=== PATIENT | female | born 1970 | race Caucasian/White ===

== ENCOUNTER 2017-06-15 07:29 | Inpatient (IN) | payer OTHER ==
[~2017-06-15] VITALS: Ht 157.5 cm; Wt 117.6 kg
[~2017-06-15 07:29] MED LIST: AMLODIPINE BESYL5 M1 PO; CLONAZEPAM1 M2 PO; DULOXETINE HCL60 MG PO; HYDROMORPHO IV; LACTATED RING1000 ML IV; METOPROLOL SUC100 M2 PO; MIRALAX119 GM PO; MONTELUKAST SOD10 M1 PO; PERCOCET 5-3251 EACH PO; SENNA-TIME S T1 EACH PO; SPIRONOLACTONE100 M1 PO; TRAZODONE HCL50 M1 PO; VITAMIN D250000 UNIT PO
[2017-06-15] MEDS ORDERED: ZOFRAN ODT4 M1 SL (09:01)
--- NOTE | 2017-06-15 09:01 | ED GI/GU/ABDOMINAL COMPLAINT ---
History of Present Illness General Chief Complaint: Abdominal Pain/Flank Pain Stated Complaint: ABD PAIN/ VOMITING Source: patient, old records Exam Limitations: no limitations Vital Signs & Intake/Output Vital Signs & Intake/Output Vital Signs Date Time Temp Pulse Resp B/P B/P Pulse O2 O2 Flow FiO2 Mean Ox Delivery Rate 06/16 1600 94 Room Air Room Air 06/16 1600 97.7 104 22 130/80 92 Room Air Room Air 06/16 1200 98 Room Air Room Air 06/16 1041 92 121/67 06/16 1041 92 121/67 06/16 0800 98 Room Air Room Air 06/16 0800 98.8 92 20 124/70 98 Room Air Room Air 06/16 0400 98 Room Air 06/16 0000 96 Room Air 06/16 0000 98.6 110 22 148/90 96 Room Air ED Intake and Output 06/16 0000 06/15 1200 Intake Total 405 2000 Output Total 0 Balance 405 2000 Intake, IV 375 2000 Intake, Oral 30 Output, Urine 0 Patient 265 lb 170 lb Weight Weight Estimated Measurement Method Allergies Coded Allergies: Sulfa (Sulfonamide Antibiotics) (Intermediate, RASH 05/21/17) valsartan (From DIOVAN) (RASH 05/21/17) Reconcile Medications Amlodipine Besylate 5 MG TABLET 2 TAB PO DAILY BP (Reported) Clonazepam 1 MG TABLET 1 TAB PO BIDP PRN ANXIETY (Reported) Duloxetine HCl 60 MG CAPSULE.DR 2 CAP PO DAILY MENTAL HEALTH/NERVE PAIN ( Reported) Ergocalciferol (Vitamin D2) (Vitamin D2) 50,000 UNIT CAPSULE 1 CAP PO QWED SUPPLEMENT (Reported) Hydromorphone (Hydromorphone HCl) 2 MG/ML VIAL 2 MG IV Q4 PRN SEVER PAIN Metoprolol Succinate 100 MG TAB.ER.24H 1 TAB PO DAILY HEART/BP (Reported) Montelukast Sodium 10 MG TABLET 1 TAB PO DAILY ALLERGIES (Reported) Ondansetron (Zofran Odt) 4 MG TAB.RAPDIS 1 TAB SL TID PRN NAUSEA/VOMITING ( Reported) Polyethylene Glycol 3350 (Miralax) 17 GRAM/DOSE POWDER 17 GM PO DAILY PRN CONSTIPATION . Sennosides/Docusate Sodium (Senna-Time S Tablet) 8.6 MG-50 MG TABLET 187 MG PO AT BEDTIME PRN constipation . Trazodone HCl 50 MG TABLET 1 TAB PO QPM SLEEP (Reported) Triage Note: PT TO ED C/O ABD PAIN AND VOMITING SINCE YESTERDAY. PT WAS ADMITTED TO [facility] ON 06/09 FOR PANCREATITIS. PT IS ALSO S/P [facility] ON 05/21. PT WAS SENT TO [facility] ON 06/10 FROM [facility] FOR A "DIAGNOSTIC TEST" WHICH PT STATES WAS NEVER DONE. PT WAS DISCHARGED FROM [facility] ON 06/12. STARTED YESTERDAY WITH N/V AND ABD PAIN. Triage Nurses Notes Reviewed? yes ? n Is pt currently ? No Onset: Abrupt Duration: day(s): (3), constant Timing: recent history Quality/Severity: aching, cramping, vomiting Severity Numbers: 7 Location: epigastric, left upper quadrant, right lower quadrant Radiation: no radiation Activities at Onset: none Prior Abdominal Problems: similar symptoms No Modifying Factors: none Associated Symptoms: denies HPI: 47-year-old woman with a history of obesity, of hypertension, anxiety, allergy, history of DVT on the left LE, hyperlipidemia, with plans for bariatric surgery in the near future, DVT hospitalized 3 weeks prior to this admission with acute pancreatitis in the setting of cholelithiasis, status post cholecystectomy on that hospitalization, for which she was admitted last week and discharged from the [facility] days ago secondary to acute pancreatitis with an acute necrotic collection that they did not drain at [facility]. The patient states that when she went home she began feeling nauseous, and starting yesterday she's had vomiting and loose stools. She states she'll has abdominal pain with vomiting. No fever no chills. She is not currently on any antibiotics. She's been taking prescribed nausea medicine without improvement in her symptoms no sick contacts no chest pain back pain and urinary urgency frequency dysuria. No vaginal bleeding. (Luisito Isidro) Past History Travel History Traveled to [place] past 21 day No Medical History Any Pertinent Medical History? see below for history Neurological: NONE EENT: NONE Cardiovascular: hypertension, hyperlipidemia Respiratory: NONE Gastrointestinal: pancreatitis Hepatic: ? 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 Age 67. MOTHER, , Age 34; Cause: MVA (motor vehicle accident). PGA, , Age 85; Cause: Colon cancer. Relation not specified for: *No pertinent family history Hx Contributory? No (Luisito Isidro) Review of Systems Review of Systems Constitutional: Reports: see HPI. Comments Review of systems: See HPI, All other systems negative. Constitutional, no chills no fever HEENT: no sore throat no congestion Cardiovascular: No chest pain Skin: no rashes, no change in skin Respiratory: No dyspnea no cough no sputum GI: SEE HPI : No dysuria Muscle skeletal: No joint pain, no back pain Neurologic: , no headache Psych: No stress Heme/endocrine: No bruising (Luisito Isidro) Physical Exam Physical Exam General Appearance: well developed/nourished, alert, awake Gastrointestinal: soft, tenderness ( DIFFUSE) Comments: Well-developed well-nourished person in no acute distress HEENT: Normal EENT exam; PERRL, EOMI, HEAD is atraumatic. moist mucous membranes. Neck: Supple, no lymphadenopathy, normal range of motion Back: Nontender, no CVA tenderness. Full range of motion Cardiovascular: Regular rate and rhythms no murmurs Respiratory: No respiratory distress. Patient speaking in full complete sentences. Breath sounds clear to auscultation bilaterally: NO W/R/R Abdomen: Soft, diffuse tenderness, the incisions are clean dry and intact nondistended, no appreciable organomegaly. Normal bowel sounds. No rebound/ guarding, No ascites. Extremity: No edema, full range of motion of extremities Neuro: Alert oriented x3, motor sensory normal, There were no obvious focal neurologic abnormalities. Skin: No appreciable rash on exposed skin, skin is warm and dry. Psych: Mood and affect is normal, memory and judgment is normal. Core Measures ACS in differential dx? No Sepsis Present: No Sepsis Focused Exam Completed? No (Luisito Isidro) Progress Differential Diagnosis: bowel obstruction, colon cancer, diverticulitis, gastritis, hepatitis, hernia, ischemic bowel, inflamm bowel dis, pancreatitis, PUD/GERD, perforated viscous, SBO Plan of Care: Orders Procedure Date/time Status ICU LAB BUNDLE 06/17 0500 Active CBC WITHOUT DIFFERENTIAL 06/17 0500 Active Wound Care/Dressing 06/16 1615 Complete Weight 06/16 1615 Active Turn and Reposition 06/16 1615 Active Drains/Tubes 06/16 1615 Complete Skin Integrity Protocol 06/16 1615 Active Skin/Pressure Ulcer Assess (Sk 06/16 1615 Active Precautions 06/16 1615 Active CIWA 06/16 1615 Complete PHOSPHORUS 06/16 0440 Complete MAGNESIUM 06/16 0440 Complete Lab Add-on Test 06/16 UNK Active ICU LAB BUNDLE 06/16 UNK Active ECHOCARDIOGRAM 06/16 UNK Active Transfer Disposition 06/15 2202 Active ACTIVE SURVEILLANCE NARES 06/15 2157 Active Transfer patient to 06/15 UNK Active Current Medications Sig/Anay Start time Last Medication Dose Stop Time Status Admin Trimethobenzamide HCl 200 MG Q6P PRN 06/16 2345 AC 06/16 (Tigan) 0834 Enoxaparin Sodium 40 MG DAILY 06/16 1055 AC 06/16 (Lovenox) 1057 Duloxetine HCl 120 MG DAILY 06/16 1000 AC 06/16 (Cymbalta) 1040 Magnesium Oxide 400 MG BID 06/16 1000 CAN (Mag-Ox) 06/18 1000 Lactated Ringer's 1,000 ML Q8H 06/15 2300 AC 06/16 (Lactated Ringers) 1850 Trazodone HCl 50 MG QPM 06/15 2200 AC 06/15 (Desyrel) 2242 Pantoprazole Sodium 40 MG DAILY 06/15 1857 AC 06/16 (Protonix) 1038 Clonazepam 1 MG BID PRN 06/15 1630 AC 06/15 (Klonopin 1MG Tab) 06/22 1629 2048 Metoprolol Succinate 100 MG DAILY 06/15 1622 AC 06/16 (Toprol Xl) 1041 Amlodipine Besylate 10 MG DAILY 06/15 1620 AC 06/16 (Norvasc) 1041 Ondansetron HCl 4 MG Q6P PRN 06/15 1415 AC 06/15 (Zofran) 2042 Acetaminophen 650 MG Q6P PRN 06/15 1345 AC (Tylenol) Hydromorphone HCl 1 MG Q6P PRN 06/15 1345 AC 06/16 (Dilaudid) 1850 Morphine Sulfate 2 MG Q6-PRN PRN 06/15 1345 AC (Morphine) Laboratory Tests 06/16/17 0440: Anion Gap 11, Estimated GFR > 60, BUN/Creatinine Ratio 8.0, Phosphorus 3.8, Magnesium 1.5 L, Amylase 738 H, Lipase 3650 H, CBC w Diff NO MAN DIFF REQ, RBC 3.49 L, MCV 91.9, MCH 30.5, RDW 13.9, MPV 7.8, Gran % 76.0 H, Lymphocytes % 13.8 L, Monocytes % 7.4, Eosinophils % 2.5, Basophils % 0.3, Absolute Granulocytes 6.4, Absolute Lymphocytes 1.2, Absolute Monocytes 0.6, Absolute Eosinophils 0.2, Absolute Basophils 0, PUBS MCHC 33.2 Microbiology 06/15 2207 UPPER RESP: Surveillance Culture - RECD Old records reviewed including the patient's previous hospitalization, medications Zofran 4 IV IV fluids Dilaudid 1 mg IV CAT scan ordered. CASE D/W DR HOROWITZ AGREES WITH PLAN 1015 pt reports to feeling sig improved, pain resolved, nausea improved, iv fluids running pending labs 1135 repeat evaluation patient's resting in no apparent distress reports improvement in symptoms pending CAT scan and discussed with relief of her labs to date. I discussed with the patient her CAT scan findings, resting comfortably IV fluids are running. DR HOROWITZ spoke with dr stoner who will admit Diagnostic Imaging: Viewed by Me: CT Scan. Discussed w/RAD: CT Scan. Radiology Impression: PATIENT: CR VASQUEZ PRESENT AGE: 47 PATIENT ACCOUNT NO: [id number] : 72 LOCATION: [facility] ORDERING PHYSICIAN: Luisito MITCHELL SERVICE DATE: 06/15/17 EXAM TYPE: CAT - CT ABD & PELVIS W IV CONTRAST EXAMINATION: CT ABDOMEN AND PELVIS WITH CONTRAST CLINICAL INFORMATION: Nausea and vomiting. Upper abdominal pain. Recent necrotic pancreatitis. COMPARISON: CT from 06/09/2017. MRI 06/10/2017. TECHNIQUE : Multidetector volumetric imaging was performed of the abdomen and pelvis following IV administration of 95 mL of Optiray 320 intravenous contrast. Sagittal and coronal reformatted images were obtained on the technologist's workstation. DLP: 1370 mGy-cm FINDINGS: LUNG BASES: Trace bilateral pleural effusions. Bibasilar subsegmental atelectasis. LIVER, GALLBLADDER, AND BILIARY TREE: The liver is normal in size, shape, and attenuation. No focal hepatic lesion or biliary ductal dilatation is present. Cholecystectomy. PANCREAS: Redemonstration of necrosis involving the pancreatic head and neck with associated wall of collection replacing the parenchyma. The appearance is fairly similar to the previous CT. The pancreatic body and tail parenchyma remains homogenous with mild prominence of the pancreatic duct, similar to prior. Adjacent inflammatory changes are noted, which may be mildly decreased from prior. Fluid continues to extend along the paracolic gutters into the pelvis. There is no new fluid collection. SPLEEN: Unremarkable. ADRENAL GLANDS: Unremarkable. KIDNEYS AND URETERS: The kidneys are normal in size, shape, and attenuation. No hydronephrosis, hydroureter, or calculi seen. No perinephric stranding. Left upper pole renal cyst again noted. BLADDER: Unremarkable. GASTROINTESTINAL TRACT: Tiny hiatal hernia. The stomach is otherwise unremarkable. Mild wall thickening of the proximal duodenum is likely reactive to the pancreatic process. The small bowel is normal in caliber without obstruction. No colonic wall thickening or inflammatory change. No free air. ABDOMINAL WALL: No significant hernia is appreciated. LYMPH NODES: Normal. VASCULAR: Unremarkable. PELVIC VISCERA: Tampon in place. The uterus and adnexa are unremarkable. OSSEOUS STRUCTURES: No acute or suspicious osseous abnormality. Mild degenerative changes at L5-S1 with vacuum disc phenomenon present. IMPRESSION: Similar appearance of the pancreas to the previous study, with area of walled off necrosis involving the pancreatic head and neck. Decreasing but persistent adjacent inflammatory changes. Mild prominence of the pancreatic duct is also unchanged. No new fluid collection. Trace bilateral pleural effusions with atelectasis, increased from prior. DICTATED BY: Amador Blanton MD DATE/TIME DICTATED:06/15/171253 CARRY ALL DRIVER: KIMBERLY DATE/TIME TRANSCRIBED:06/15/171253 CONFIDENTIAL, DO NOT COPY WITHOUT APPROPRIATE AUTHORIZATION. <Electronically signed in Other Vendor System> SIGNED BY: Amador Blanton MD 06/15/17 1303 Initial ED EKG: none (Luisito Isidro) Departure Departure Time of Disposition: 1323 Disposition: STILL A PATIENT Condition: Stable Clinical Impression Primary Impression: Pancreatitis Referrals: Bienvenido Casarez MD (PCP/Family) Departure Forms: Customer Survey General Discharge Information Admission Note Spoke With: Christo Stoner MD Documentation of Exam: Documentation of any treatments & extenuating circumstances including Concerns Regarding Discharge (functional status, medication knowledge or non-compliance, living conditions, etc.) that warrant an admission rather than observation: IV pain control IV fluids trend labs GI consult, PREMATURE DISCHARGE woudl be medically harmful, pt unable to tolerate po, Pt had long hospital course x 2 last month including transfer to [facility], will need bowel rest, iv fluids for several days (Luisito Isidro) PA/SHOTBLASTER Co-Sign Statement Statement: ED Attending supervision documentation- x I saw and evaluated the patient. I have also reviewed all the pertinent lab results and diagnostic results. I agree with the findings and the plan of care as documented in the PA's/SHOTBLASTER's documentation. Continued n/v/abdominal pain elevated lipase. Requires NPO, IVF, IV antiemetic, IV analgesia, GI evaluation [] I have reviewed the ED Record and agree with the PA's/SHOTBLASTER's documentation. [] Additions or exceptions (if any) to the PAs/SHOTBLASTER's note and plan are summarized below: [] (Kandy BRUNNER,Glen)
[2017-06-15 09:39] LABS: ABSOLUTE BASOPHIL COUNT 0 /CUMM (0.0-0.2); ABSOLUTE EOSINOPHIL COUNT 0.1 /CUMM (0.0-0.7); ABSOLUTE GRANULOCYTE CT 8.1 /CUMM (1.4-6.5); ABSOLUTE LYMPH COUNT 1.1 /CUMM (1.2-3.4); ABSOLUTE MONOCYTE COUNT 0.4 /CUMM (0.10-0.60); BASOPHIL % 0 % (0.0-2.0); EOSINOPHIL % 1.2 % (0-5); GRANULOCYTE % 82.7 % (42.2-75.2); HEMATOCRIT 37.2 % (37-47); MEAN CORPUSCULAR HGB 30.3 PG (27.0-31.0); MEAN CORPUSCULAR VOLUME 91.9 FL (81.0-99.0); MEAN PLATELET VOLUME 8.1 FL (7.4-10.4); PLATELET COUNT 358 /CUMM (130-400); RBC DISTRIBUTION WIDTH 13.6 % (11.5-14.5); RED BLOOD CELL CT 4.05 /CUMM (4.20-5.40); WHITE BLOOD CELL COUNT 9.8 /CUMM (4.8-10.8)
--- NOTE | 2017-06-15 13:03 | CT SCAN REPORT ---
EXAMINATION: CT ABDOMEN AND PELVIS WITH CONTRAST CLINICAL INFORMATION: Nausea and vomiting. Upper abdominal pain. Recent necrotic pancreatitis. COMPARISON: CT from 06/09/2017. MRI 06/10/2017. TECHNIQUE: Multidetector volumetric imaging was performed of the abdomen and pelvis following IV administration of 95 mL of Optiray 320 intravenous contrast. Sagittal and coronal reformatted images were obtained on the technologist's workstation. DLP: 1370 mGy-cm FINDINGS: LUNG BASES: Trace bilateral pleural effusions. Bibasilar subsegmental atelectasis. LIVER, GALLBLADDER, AND BILIARY TREE: The liver is normal in size, shape, and attenuation. No focal hepatic lesion or biliary ductal dilatation is present. Cholecystectomy. PANCREAS: Redemonstration of necrosis involving the pancreatic head and neck with associated wall of collection replacing the parenchyma. The appearance is fairly similar to the previous CT. The pancreatic body and tail parenchyma remains homogenous with mild prominence of the pancreatic duct, similar to prior. Adjacent inflammatory changes are noted, which may be mildly decreased from prior. Fluid continues to extend along the paracolic gutters into the pelvis. There is no new fluid collection. SPLEEN: Unremarkable. ADRENAL GLANDS: Unremarkable. KIDNEYS AND URETERS: The kidneys are normal in size, shape, and attenuation. No hydronephrosis, hydroureter, or calculi seen. No perinephric stranding. Left upper pole renal cyst again noted. BLADDER: Unremarkable. GASTROINTESTINAL TRACT: Tiny hiatal hernia. The stomach is otherwise unremarkable. Mild wall thickening of the proximal duodenum is likely reactive to the pancreatic process. The small bowel is normal in caliber without obstruction. No colonic wall thickening or inflammatory change. No free air. ABDOMINAL WALL: No significant hernia is appreciated. LYMPH NODES: Normal. VASCULAR: Unremarkable. PELVIC VISCERA: Tampon in place. The uterus and adnexa are unremarkable. OSSEOUS STRUCTURES: No acute or suspicious osseous abnormality. Mild degenerative changes at L5-S1 with vacuum disc phenomenon present. IMPRESSION: Similar appearance of the pancreas to the previous study, with area of walled off necrosis involving the pancreatic head and neck. Decreasing but persistent adjacent inflammatory changes. Mild prominence of the pancreatic duct is also unchanged. No new fluid collection. Trace bilateral pleural effusions with atelectasis, increased from prior.
--- NOTE | 2017-06-15 13:44 | History & Physical ---
Jacob BRUNNER,[facility] 06/15/17 1343: General Information and HPI MD Statement: I have seen and personally examined CR KWOK and documented this H&P. The patient is a 47 year old F who presented with a patient stated chief complaint of [abd pain]. Source of Information: patient History of Present Illness: 47 yo F with a history of necrotic pancreatitis, obesity, hypertension, anxiety, DVT on the left LE, hyperlipidemia, recently hospitalized 3 weeks prior to this admission with acute pancreatitis in the setting of cholelithiasis, status post cholecystectomy during the admission. More recently she was admitted last week for acute pancreatitis adn transferred to [facility] for an acute necrotic collection which was not drain. States she was doing ok at home however she started having worsening naseau x3 days and abd pain. She was started on a low-fat regular diet and states she was compliant on the diet. However she threw up multiple times last night and comes to the ED due to inability to tolerate any po. Allergies/Medications Allergies: Coded Allergies: Sulfa (Sulfonamide Antibiotics) (Intermediate, RASH 05/21/17) valsartan (From DIOVAN) (RASH 05/21/17) Home Med list Amlodipine Besylate 5 MG TABLET 2 TAB PO DAILY BP (Reported) Clonazepam 1 MG TABLET 1 TAB PO BIDP PRN ANXIETY (Reported) Duloxetine HCl 60 MG CAPSULE.DR 2 CAP PO DAILY MENTAL HEALTH/NERVE PAIN ( Reported) Ergocalciferol (Vitamin D2) (Vitamin D2) 50,000 UNIT CAPSULE 1 CAP PO QWED SUPPLEMENT (Reported) Hydromorphone (Hydromorphone HCl) 2 MG/ML VIAL 2 MG IV Q4 PRN SEVER PAIN Metoprolol Succinate 100 MG TAB.ER.24H 1 TAB PO DAILY HEART/BP (Reported) Montelukast Sodium 10 MG TABLET 1 TAB PO DAILY ALLERGIES (Reported) Ondansetron (Zofran Odt) 4 MG TAB.RAPDIS 1 TAB SL TID PRN NAUSEA/VOMITING ( Reported) Polyethylene Glycol 3350 (Miralax) 17 GRAM/DOSE POWDER 17 GM PO DAILY PRN CONSTIPATION . Sennosides/Docusate Sodium (Senna-Time S Tablet) 8.6 MG-50 MG TABLET 187 MG PO AT BEDTIME PRN constipation . Trazodone HCl 50 MG TABLET 1 TAB PO QPM SLEEP (Reported) Past History Travel History Traveled to [place] past 21 day No Medical History Neurological: NONE EENT: NONE Cardiovascular: hypertension, hyperlipidemia Respiratory: NONE Gastrointestinal: pancreatitis Hepatic: ? mild fatty liver Renal: NONE Musculoskeletal: NONE Psychiatric: anxiety, depression, panic attacks Endocrine: obesity Blood Disorders: DVT (LLE 1993, post AP) Cancer(s): NONE RN ACUTE CARE/Reproductive: NONE History of MRSA: No History of VRE: No History of CDIFF: No Influenza Vaccine: 03/14/17 Surgical History Surgical History: appendectomy (1993), cholecystectomy (05/26/17: Lap CCKY), LASIC EYE SURGERY Past Family/Social History Family History Relations & Conditions if any FATHER (A&W). Age 67. MOTHER, , Age 34; Cause: MVA (motor vehicle accident). PGA, , Age 85; Cause: Colon cancer. Relation not specified for: *No pertinent family history Psychosocial History Who Do You Live With? spouse Services at Home: None Primary Language: Eritrean ETOH Use: denies use Illicit Drug Use: denies illicit drug use Living Will? 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 Ambulation: independent IADLs Independent: shopping, housework, finances, food prep, telephone, transportation , medication admin. Review of Systems Review of Systems Constitutional: Reports: see HPI. Denies: chills, fever, malaise. Cardiovascular: Denies: chest pain, palpitations. Respiratory: Denies: cough, short of breath. GI: Reports: abdominal pain, nausea, vomiting. Genitourinary: Reports: no symptoms. Exam & Diagnostic Data Last 24 Hrs of Vital Signs/I&O Vital Signs Date Time Temp Pulse Resp B/P B/P Pulse O2 O2 Flow FiO2 Mean Ox Delivery Rate 06/15 1843 115 152/88 06/15 1842 115 152/88 06/15 1754 115 152/88 06/15 1616 98.5 125 22 160/98 98 Room Air 06/15 1410 98.8 110 20 137/91 100 Room Air 06/15 1228 98.9 102 20 137/79 99 Room Air 06/15 1033 98.8 98 20 128/71 98 Room Air 06/15 0853 97 06/15 0732 99.0 124 20 134/88 97 Room Air Intake & Output 06/16 0800 06/16 0000 06/15 1600 Intake Total 405 2000 Output Total 0 Balance 405 2000 Intake, IV 375 2000 Intake, Oral 30 Output, Urine 0 Patient 265 lb Weight Physical Exam General Appearance Alert, Oriented X3, Mild Distress Skin Temp/Moisture Exam: Warm/Dry Cardiovascular Normal S1, Normal S2, tachy Lungs Clear to Auscultation, Normal Air Movement Abdomen Normal Bowel Sounds, Soft, tender to palpation of upper quadrants Extremities 2+ radial pulses Last 24 Hrs of Labs/Dangelo: Laboratory Tests 06/15/17 1208: Lactic Acid Cancelled 06/15/17 1015: Anion Gap 8, Estimated GFR > 60, BUN/Creatinine Ratio 10.0, Glucose 96, Lactic Acid 0.8, Calcium 9.1, Total Bilirubin 0.6, AST 25, ALT 33, Alkaline Phosphatase 86, Total Protein 5.7 L, Albumin 3.1 L, Globulin 2.6, Albumin/Globulin Ratio 1.2, Amylase 778 H, Lipase 4759 H, Total Beta HCG NEGATIVE 06/15/17 0929: CBC w Diff NO MAN DIFF REQ, RBC 4.05 L, MCV 91.9, MCH 30.3, RDW 13.6, MPV 8.1, Gran % 82.7 H, Lymphocytes % 11.7 L, Monocytes % 4.4, Eosinophils % 1.2, Basophils % 0, Absolute Granulocytes 8.1 H, Absolute Lymphocytes 1.1 L, Absolute Monocytes 0.4, Absolute Eosinophils 0.1, Absolute Basophils 0, PUBS MCHC 33.0 06/15/17 0834: Sodium Cancelled, Potassium Cancelled, Chloride Cancelled, Carbon Dioxide Cancelled, Anion Gap Cancelled, BUN Cancelled, Creatinine Cancelled, BUN/ Creatinine Ratio Cancelled, Glucose Cancelled, Calcium Cancelled, Total Bilirubin Cancelled, AST Cancelled, ALT Cancelled, Alkaline Phosphatase Cancelled, Total Protein Cancelled, Albumin Cancelled, Globulin Cancelled, Albumin/Globulin Ratio Cancelled, Amylase Cancelled, Lipase Cancelled, Total Beta HCG Cancelled Microbiology 06/15 2206 UPPER RESP: Surveillance Culture - RECD 06/15 907 BLOOD: Blood Culture - ORD 06/15 907 BLOOD: Blood Culture - COLB Assessment/Plan Assessment: 47 yo F with a history of necrotic pancreatitis, obesity, hypertension, anxiety, DVT on the left LE, hyperlipidemia, recently hospitalized 3 weeks prior to this admission with acute pancreatitis in the setting of cholelithiasis, status post cholecystectomy during the admission and recently discharged from [facility] last week from necrotic pancreatitis presenting for pancreatitis. #pancreatitis Lipase 4759. amylase 778. CT abd: area of walled off necrosis involving the pancreatic head and neck. Decreasing but persistent adjacent inflammatory changes.Trace bilateral pleural effusions with atelectasis, increased from prior. -NPO with lactated Ringer @125ml/hr -f/u lipase, CBC, BEP tomorrow -pain control -tigan/zofran prn nausea, protonix prophylaxis -GI consult with Dr. Schaeffer -ID recs -f/u EKG -discuss with IR regarding aspiration of necrosis, monitor off abx #htn -cont amlodpiine, metoprolo #mental health -cont Cymbalta, Klonopin, trazodone for sleep #DVT prophylaxis ALPS, if no IR intervention will start SC Lovenox #Full code As Ranked By This Provider Problem List: 1. Acute pancreatitis Core Measures/Misc (02/28) Acute Coronary Syndrome ACS Diagnosis: No Congestive Heart Failure Congestive Heart Failure Diagnosis No Cerebrovascular Accident CVA/TIA Diagnosis: No VTE (View Protocol) VTE Risk Factors Acute Medical Illness No Mechanical VTE Prophylaxis d/t N/A MechProphylax Ordered No VTE Pharm Prophylaxis d/t Surgical Contraindication Sepsis (View protocol) Sepsis Present: No Bert Monge 06/15/17 1451: Attending MD Review Statement Attending Statement Attending MD Statement: examined this patient, discuss w/resident/PA/MANUFACTURING RECRUITER, agreed w/resident/PA/MANUFACTURING RECRUITER, discussed with family, reviewed EMR data (avail), discussed with nursing, discussed with case mgmt, reviewed images, amended to note Attending Assessment/Plan: 47 o/f with acute pancreatitis recently trasnferred to [place] for possible aspiration of pancreatic wall on CT but managed conservatively and discharged to home, however patient symptoms did not improve with persistent nasuea so she decided to come to ER. LABS wbc 9.0, Lipase 4000s. amylase 700s. CT abd/pelvis with minimal imrpovement. Plan is to admit for pancreatitis and pain control. Her AST/ALTs appear to be normal. GI and ID consult for pancreatoc necrosis. NPo, pain control, prn nausea meds. avoid medications which can cause pancreatitis. gi/dvt prophyalxis full code. Laltio Stroud 06/15/17 1558: Resident Review Statement Resident Statement: examined this patient, discussed with investigator internal revenue, agreed with investigator internal revenue, discussed with nursing, reviewed images Other Findings: Mrs. Kwok is a 47-year-old woman with a history of obesity, of hypertension, anxiety, allergy, history of DVT on the left LE, hyperlipidemia, with plans for bariatric surgery in the near future, DVT hospitalized 3 weeks prior to this admission with acute pancreatitis in the setting of cholelithiasis, status post cholecystectomy, the patient was admitted last week with similar complaint of generalized abdominal pain, nausea and vomiting, CAT scan of the abdomen showed new region of necrosis is present within the pancreatic head and neck, we transferred the patient to [facility] for possible drainage, patient reports that at [facility] she was kept nothing by mouth and then she was started on a low-fat regular diet and discharged home on the third day and no drainage was done at [place], she reports that the first day after discharge she was fine, but nausea started on Wednesday , Wednesday, yesterday she threw up multiple times overnight, and she reports severright upper quadrant pain which is slightly improved with IV medication. Vitals , examination, labs and imaging as above Assessment: #Pancreatitis with necrosis on CT-scan #Persistant N/V #Tachycardia Plan: -We'll admit the patient to general medicine floor -We'll keep her nothing by mouth for now -We'll hydrate her with lactated Ringer @125ml/hr -We will check her lipase, CBC, BEP tomorrow -We'll control pain with diluded -Zofran for nausea -GI consult with Dr. Schaeffer -ID consult -Baseline EKG is ordered -We'll continue her home medication of amlodipine, metoprolol, Cymbalta, Klonopin DVT prophylaxis ALPS, if no IR intervention will start SC Lovenox Full code
[2017-06-15 16:16] VITALS: BP 160/98
[2017-06-15 17:54] VITALS: BP 152/88
--- NOTE | 2017-06-15 17:57 | Cons- Infect Disease ---
General Information and HPI Consulting Request Date of Consult: 06/15/17 Requested By: Bert Monge MD Reason for Consult: Necrotizing pancreatitis Source of Information: patient, old records History of Present Illness: This is a 47-year-old woman with a history of obesity, with plans for a gastric sleeve in the near future, hypertension, anxiety and DVT of the left lower extremity, hospitalized 4 weeks prior to admission with acute gallstone pancreatitis, status post cholecystectomy on that hospitalization and discharged 2 days postop, readmitted 2 weeks later, 6 days prior to admission, with recurrent nausea, vomiting and abdominal pain, found to have a lipase of [address] of the abdomen and pelvis revealing a region of necrosis within the pancreatic head and neck, transferred to [place] for pancreatic aspiration by EUS, which was not performed and discharged from [place] 2 days later, readmitted today after presenting to the emergency room with recurrent nausea, vomiting and abdominal pain beginning one day prior to admission. On admission she was afebrile. Laboratory data revealed a white blood cell count of 10,000, BUN/ creatinine 6 and 0.6, amylase/lipase 778 and 4759, with normal liver enzymes. CT of the abdomen and pelvis with IV contrast revealed redemonstration of walled off necrosis involving the pancreatic head and neck, with a decrease in the adjacent inflammatory changes, with mild prominence of the pancreatic duct unchanged. Allergies/Medications Allergies: Coded Allergies: Sulfa (Sulfonamide Antibiotics) (Intermediate, RASH 05/21/17) valsartan (From DIOVAN) (RASH 05/21/17) Home Med List: Amlodipine Besylate 5 MG TABLET 2 TAB PO DAILY BP (Reported) Clonazepam 1 MG TABLET 1 TAB PO BIDP PRN ANXIETY (Reported) Duloxetine HCl 60 MG CAPSULE.DR 2 CAP PO DAILY MENTAL HEALTH/NERVE PAIN ( Reported) Ergocalciferol (Vitamin D2) (Vitamin D2) 50,000 UNIT CAPSULE 1 CAP PO QWED SUPPLEMENT (Reported) Hydromorphone (Hydromorphone HCl) 2 MG/ML VIAL 2 MG IV Q4 PRN SEVER PAIN Metoprolol Succinate 100 MG TAB.ER.24H 1 TAB PO DAILY HEART/BP (Reported) Montelukast Sodium 10 MG TABLET 1 TAB PO DAILY ALLERGIES (Reported) Ondansetron (Zofran Odt) 4 MG TAB.RAPDIS 1 TAB SL TID PRN NAUSEA/VOMITING ( Reported) Polyethylene Glycol 3350 (Miralax) 17 GRAM/DOSE POWDER 17 GM PO DAILY PRN CONSTIPATION . Sennosides/Docusate Sodium (Senna-Time S Tablet) 8.6 MG-50 MG TABLET 187 MG PO AT BEDTIME PRN constipation . Trazodone HCl 50 MG TABLET 1 TAB PO QPM SLEEP (Reported) Past History Travel History Traveled to [place] past 21 day No Medical History Neurological: NONE EENT: NONE Cardiovascular: hypertension, hyperlipidemia Respiratory: NONE Gastrointestinal: pancreatitis Hepatic: ? 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 Age 67. MOTHER, , Age 34; Cause: MVA (motor vehicle accident). PGA, , Age 85; Cause: Colon cancer. Relation not specified for: *No pertinent family history Psychosocial History Who Do You Live With? spouse Services at Home: None Primary Language: French ETOH Use: denies use Illicit Drug Use: denies illicit drug use Living Will? 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 no Functional Ability ADLs Independent: dressing, eating, toileting, bathing. Ambulation: independent IADLs Independent: shopping, housework, finances, food prep, telephone, transportation , medication admin. Review of Systems Review of Systems Constitutional: Denies: chills, fever. All Other Systems: Reviewed and Negative Exam & Diagnostic Data Last 24 Hrs of Vital Signs/I&O Vital Signs Date Time Temp Pulse Resp B/P B/P Pulse O2 O2 Flow FiO2 Mean Ox Delivery Rate 06/15 1616 98.5 125 22 160/98 98 Room Air 06/15 1410 98.8 110 20 137/91 100 Room Air 06/15 1228 98.9 102 20 137/79 99 Room Air 06/15 1033 98.8 98 20 128/71 98 Room Air 06/15 0853 97 06/15 0732 99.0 124 20 134/88 97 Room Air Intake & Output 06/15 1600 06/15 0800 06/15 0000 Intake Total 2000 Output Total Balance 1999 Intake, IV 2000 Patient 170 lb Weight Weight Estimated Measurement Method Physical Exam Other Physical Findings: Afebrile. She is awake and alert in no acute distress. Skin reveals no rash. HEENT negative. Neck is supple with no adenopathy. Lungs are clear. Heart regular rhythm with no murmur. Abdomen is obese, soft, tender on palpation of the upper abdomen, with no guarding or rebound, with positive bowel sounds. Back no CVA tenderness. Extremities no cyanosis, clubbing or edema. Neuro is without focality. Last 24 Hours of Lab Results: Laboratory Tests 06/15 06/15 06/15 1208 1015 0929 Chemistry Sodium (137 - 145 mmol/L) 139 Potassium (3.5 - 5.1 mmol/L) 3.9 Chloride (98 - 107 mmol/L) 108 H Carbon Dioxide (22 - 30 mmol/L) 23 Anion Gap (5 - 16) 8 BUN (7 - 17 mg/dL) 6 L Creatinine (0.5 - 1.0 mg/dL) 0.6 Estimated GFR (>60 ml/min) > 60 BUN/Creatinine Ratio (7 - 25 %) 10.0 Glucose (65 - 99 mg/dL) 96 Lactic Acid (0.7 - 2.1 mmol/L) Cancelled 0.8 Calcium (8.4 - 10.2 mg/dL) 9.1 Total Bilirubin (0.2 - 1.3 mg/dL) 0.6 AST (14 - 36 U/L) 25 ALT (9 - 52 U/L) 33 Alkaline Phosphatase (<127 U/L) 86 Total Protein (6.3 - 8.2 g/dL) 5.7 L Albumin (3.5 - 5.0 g/dL) 3.1 L Globulin (1.9 - 4.2 gm/dL) 2.6 Albumin/Globulin Ratio (1.1 - 2.2 %) 1.2 Amylase (30 - 110 U/L) 778 H Lipase (23 - 300 U/L) 4759 H Total Beta HCG (NEGATIVE) NEGATIVE Hematology CBC w Diff NO MAN DIFF REQ WBC (4.8 - 10.8 /CUMM) 9.8 RBC (4.20 - 5.40 /CUMM) 4.05 L Hgb (12.0 - 16.0 G/DL) 12.3 Hct (37 - 47 %) 37.2 MCV (81.0 - 99.0 FL) 91.9 MCH (27.0 - 31.0 PG) 30.3 RDW (11.5 - 14.5 %) 13.6 Plt Count (130 - 400 /CUMM) 358 MPV (7.4 - 10.4 FL) 8.1 Gran % (42.2 - 75.2 %) 82.7 H Lymphocytes % (20.5 - 51.1 %) 11.7 L Monocytes % (1.7 - 9.3 %) 4.4 Eosinophils % (0 - 5 %) 1.2 Basophils % (0.0 - 2.0 %) 0 Absolute Granulocytes (1.4 - 6.5 /CUMM) 8.1 H Absolute Lymphocytes (1.2 - 3.4 /CUMM) 1.1 L Absolute Monocytes (0.10 - 0.60 /CUMM) 0.4 Absolute Eosinophils (0.0 - 0.7 /CUMM) 0.1 Absolute Basophils (0.0 - 0.2 /CUMM) 0 PUBS MCHC (33.0 - 37.0 G/DL) 33.0 01/02 0834 Chemistry Sodium Cancelled Potassium Cancelled Chloride Cancelled Carbon Dioxide Cancelled Anion Gap Cancelled BUN Cancelled Creatinine Cancelled BUN/Creatinine Ratio Cancelled Glucose Cancelled Calcium Cancelled Total Bilirubin Cancelled AST Cancelled ALT Cancelled Alkaline Phosphatase Cancelled Total Protein Cancelled Albumin Cancelled Globulin Cancelled Albumin/Globulin Ratio Cancelled Amylase Cancelled Lipase Cancelled Total Beta HCG Cancelled Last 24 Hours of Dangelo Results: No cultures have been obtained Diagnostic Data Recent Imaging Findings: CT of the abdomen and pelvis with IV contrast revealed redemonstration of walled off necrosis involving the pancreatic head and neck, with a decrease in the adjacent inflammatory changes; mild prominence of the pancreatic duct unchanged. Assessment/Plan Assessment/Plan Impression: This is a 47-year-old woman hospitalized 4 weeks prior to admission with acute gallstone pancreatitis,status post cholecystectomy on that hospitalization, readmitted 2 weeks later, 6 days prior to this admission, with recurrent nausea, vomiting and abdominal pain and found on CT of the abdomen and pelvis to have a region of necrosis within the pancreatic head and neck, transferred to [place] for pancreatic aspiration by EUS, which was not performed, readmitted today with recurrent nausea, vomiting and abdominal pain, found to be afebrile with a normal white blood cell count, with an elevated amylase and lipase and with a CT of the abdomen and pelvis again revealing necrosis within the pancreas head and neck. I am still concerned about the possibility of infected pancreatic necrosis and feel that an aspiration of the pancreas needs to be done. This was not felt by IR to be feasible here on her last admission and will need to discuss with them again. If this is again not felt to be feasible here then she may need to be transferred to facility that would be agreeable to performing this. Suggestion: 1. Would discuss with IR the feasibility of aspirating her pancreatic necrosis 2. Would keep NPO pending above discussion 3. GI evaluation 4. Continue to follow off antibiotics pending above Consult Acknowledgment - Thank you for your consult request.
--- NOTE | 2017-06-15 21:06 | Cons- Gastroenterology ---
General Information and HPI Consulting Request Date of Consult: 06/15/17 Requested By: Bert Monge MD Reason for Consult: 1. Nausea, Vomiting, Abdominal Pain 2. Acute Pancreatitis 3. Abnormal CT Scan of the Abdomen 4. Morbid Obesity Source of Information: patient, Electronic Medical Record History of Present Illness: Ms. Molina is a 47 y/o femalewith a past medical history significant for morbid obesity, HTN, HLD, anxiety, depression, panic attacks, and LLE DVT postop 1993 for which she was treated with Coumadin for 1.5 years afterwards. I initially saw Ms. Kwok for a preoperative Bariatric Screening EGD on 2016 which was unremarkable. Subsequently, she was recently hospitalized at [facility] 05/21/17-05/28/17 for gallstone pancreatitis. Although she had elevated Liver Associated Enzymes and a lipase of 9421, imaging studies then ruled out choledocholithiasis. She underwent a laparoscopic cholecystectomy on 05/26/17 and was discharged to home. She then returned to [facility] ED on 06/09/2017 and was readmitted with acute pancreatitis. A CT Scan done at that time showed the following: FINDINGS: ABDOMEN AND PELVIS - HEPATOBILIARY: Liver has normal size and contour. Gallbladder surgically absent. No intrahepatic or extra hepatic bile duct dilatation. PANCREAS: Compared to 05/21/2017, there is persistent or recurrent peripancreatic edema. Also, there is persistent edema along the gastrocolic ligament. There is a new hypodense collection of water attenuation of the pancreatic head and neck with smaller component extending along the inferior margin of the pancreatic head. This is compatible with an acute necrotic collection which measures approximately 4.8 cm transverse, 3.8 cm AP. No pancreatic ductal dilatation. SPLEEN: Unremarkable. ADRENAL GLANDS: Unremarkable. KIDNEYS, URETERS, BLADDER: Kidneys are normal in size and enhance symmetrically. No nephrolithiasis or hydronephrosis. There is a stable 2.5 x 3.2 cm cyst at the upper pole of the left kidney. The ureters and urinary bladder unremarkable. GASTROINTESTINAL TRACT: The duodenum is mildly compressed by the enlarged, inflamed pancreas. Bowel loops are normal in caliber. No acute findings along the gastrointestinal tract. ABDOMINAL WALL: No abdominal wall hernia. VASCULAR: Abdominal aorta is normal in caliber; no aneurysm or dissection. The celiac trunk and its branches are widely patent. The superior mesenteric, inferior mesenteric and renal arteries are normal. The common, internal and external iliac arteries are normal. No retroperitoneal hematoma. LYMPH NODES: No pathologic sized lymph nodes in the abdomen or pelvis. PELVIC VISCERA: Unremarkable. OSSEOUS STRUCTURES: At L5-S1, there is facet osteoarthritis, degenerative disc space narrowing, osteophytosis, vacuum disc phenomenon and minimal anterolisthesis of L5 on S1. IMPRESSION: 1. 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 A new region of necrosis is present within the pancreatic head and neck (acute necrotic collection) occupying an area measuring approximately 4.8 cm transverse, 3.8 cm AP. 2. The abdominal aorta is normal. 3. Status post cholecystectomy; no evidence of biloma. A CT Scan of the abdomen was done on admission today and the findings are as described below: IMPRESSION: Similar appearance of the pancreas to the previous study, with area of walled off necrosis involving the pancreatic head and neck. Decreasing but persistent adjacent inflammatory changes. Mild prominence of the pancreatic duct is also unchanged. No new fluid collection. Trace bilateral pleural effusions with atelectasis, increased from prior. On admission patient had tachycardia as well as an elevated blood pressure. In the ED her HR was 124 with a blood presure of 134/88. She was given metoprolol and norvasc and her HR decreased to 115 with a blood pressure of 152/88. Her lipase was 4759, amylase was 778, BUN/Cr was 6/0.8 and Ca was 9.1, albumin 3.1. WBC were 9.8, H/H 12.3/37 with 358.000 platelets. Patient had been transferred to [facility] at last admission given the presence of pancreatic necrosis. However, no drainage procedure was done. She feels that at discharge her diet had been advanced too quickly. After discharge within 24 hours she quickly began to feel nauseated again and had increasing abdominal pain followed by vomiting. Allergies/Medications Allergies: Coded Allergies: Sulfa (Sulfonamide Antibiotics) (Intermediate, RASH 05/21/17) valsartan (From DIOVAN) (RASH 05/21/17) Home Med List: Amlodipine Besylate 5 MG TABLET 2 TAB PO DAILY BP (Reported) Clonazepam 1 MG TABLET 1 TAB PO BIDP PRN ANXIETY (Reported) Duloxetine HCl 60 MG CAPSULE.DR 2 CAP PO DAILY MENTAL HEALTH/NERVE PAIN ( Reported) Ergocalciferol (Vitamin D2) (Vitamin D2) 50,000 UNIT CAPSULE 1 CAP PO QWED SUPPLEMENT (Reported) Hydromorphone (Hydromorphone HCl) 2 MG/ML VIAL 2 MG IV Q4 PRN SEVER PAIN Metoprolol Succinate 100 MG TAB.ER.24H 1 TAB PO DAILY HEART/BP (Reported) Montelukast Sodium 10 MG TABLET 1 TAB PO DAILY ALLERGIES (Reported) Ondansetron (Zofran Odt) 4 MG TAB.RAPDIS 1 TAB SL TID PRN NAUSEA/VOMITING ( Reported) Polyethylene Glycol 3350 (Miralax) 17 GRAM/DOSE POWDER 17 GM PO DAILY PRN CONSTIPATION . Sennosides/Docusate Sodium (Senna-Time S Tablet) 8.6 MG-50 MG TABLET 187 MG PO AT BEDTIME PRN constipation . Trazodone HCl 50 MG TABLET 1 TAB PO QPM SLEEP (Reported) Past History Travel History Traveled to [place] past 21 day No Medical History Blood Transfusion Hx: No Neurological: NONE EENT: NONE Cardiovascular: hypertension, hyperlipidemia Respiratory: asthma Gastrointestinal: pancreatitis Hepatic: ? 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 Age 67. MOTHER, , Age 34; Cause: MVA (motor vehicle accident). PGA, , Age 85; Cause: Colon cancer. Relation not specified for: *No pertinent family history Psychosocial History Where Do You Live? Home Who Do You Live With? spouse Services at Home: None Primary Language: Latvian Smoking Status: Never Smoked ETOH Use: denies use Illicit Drug Use: denies illicit drug use Living Will? yes Power of Criminal Investigator Customs/HCP? no Functional Ability ADLs Independent: dressing, eating, toileting, bathing. Ambulation: independent IADLs Independent: shopping, housework, finances, food prep, telephone, transportation , medication admin. Review of Systems Review of Systems Constitutional: Denies: no symptoms. EENTM: Denies: no symptoms. Cardiovascular: Reports: palpitations. Respiratory: Denies: no symptoms. GI: Reports: see HPI. Genitourinary: Denies: no symptoms. Musculoskeletal: Denies: no symptoms. Skin: Denies: no symptoms. Neurological/Psychological: Reports: anxiety. Hematologic/Endocrine: Denies: no symptoms. Exam & Diagnostic Data Vital Signs and I&O Vital Signs Date Time Temp Pulse Resp B/P B/P Pulse O2 O2 Flow FiO2 Mean Ox Delivery Rate 06/15 1843 115 152/88 06/15 1842 115 152/88 06/15 1754 115 152/88 06/15 1616 98.5 125 22 160/98 98 Room Air 06/15 1410 98.8 110 20 137/91 100 Room Air 06/15 1228 98.9 102 20 137/79 99 Room Air 06/15 1033 98.8 98 20 128/71 98 Room Air 06/15 0853 97 06/15 0732 99.0 124 20 134/88 97 Room Air Intake & Output 06/15 1600 06/15 0400 06/14 1600 06/14 0400 06/13 1600 06/13 040 Intake Total 2000 Output Total Balance 2000 Intake, IV 2000 Patient 170 lb Weight Weight Estimated Measurement Method Physical Exam General Appearance: moderate distress Head: atraumatic, normal appearance Eyes: Bilateral: normal appearance. Ears, Nose, Throat: hearing grossly normal Neck: normal inspection, supple, full range of motion Respiratory: lungs clear Cardiovascular: tachycardia Gastrointestinal: normal bowel sounds, soft, diffuse anterior tenderness without rebound or guarding Extremities: normal inspection Neurologic/Psych: awake, alert, oriented x 3 Cranial Nerves: Cranial Nerves II-XII grossly intact Results Pertinent Lab Results: Laboratory Tests 06/15 06/15 06/15 1208 1015 0929 Chemistry Sodium (137 - 145 mmol/L) 139 Potassium (3.5 - 5.1 mmol/L) 3.9 Chloride (98 - 107 mmol/L) 108 H Carbon Dioxide (22 - 30 mmol/L) 23 Anion Gap (5 - 16) 8 BUN (7 - 17 mg/dL) 6 L Creatinine (0.5 - 1.0 mg/dL) 0.6 Estimated GFR (>60 ml/min) > 60 BUN/Creatinine Ratio (7 - 25 %) 10.0 Glucose (65 - 99 mg/dL) 96 Lactic Acid (0.7 - 2.1 mmol/L) Cancelled 0.8 Calcium (8.4 - 10.2 mg/dL) 9.1 Total Bilirubin (0.2 - 1.3 mg/dL) 0.6 AST (14 - 36 U/L) 25 ALT (9 - 52 U/L) 33 Alkaline Phosphatase (<127 U/L) 86 Total Protein (6.3 - 8.2 g/dL) 5.7 L Albumin (3.5 - 5.0 g/dL) 3.1 L Globulin (1.9 - 4.2 gm/dL) 2.6 Albumin/Globulin Ratio (1.1 - 2.2 %) 1.2 Amylase (30 - 110 U/L) 778 H Lipase (23 - 300 U/L) 4759 H Total Beta HCG (NEGATIVE) NEGATIVE Hematology CBC w Diff NO MAN DIFF REQ WBC (4.8 - 10.8 /CUMM) 9.8 RBC (4.20 - 5.40 /CUMM) 4.05 L Hgb (12.0 - 16.0 G/DL) 12.3 Hct (37 - 47 %) 37.2 MCV (81.0 - 99.0 FL) 91.9 MCH (27.0 - 31.0 PG) 30.3 RDW (11.5 - 14.5 %) 13.6 Plt Count (130 - 400 /CUMM) 358 MPV (7.4 - 10.4 FL) 8.1 Gran % (42.2 - 75.2 %) 82.7 H Lymphocytes % (20.5 - 51.1 %) 11.7 L Monocytes % (1.7 - 9.3 %) 4.4 Eosinophils % (0 - 5 %) 1.2 Basophils % (0.0 - 2.0 %) 0 Absolute Granulocytes (1.4 - 6.5 /CUMM) 8.1 H Absolute Lymphocytes (1.2 - 3.4 /CUMM) 1.1 L Absolute Monocytes (0.10 - 0.60 /CUMM) 0.4 Absolute Eosinophils (0.0 - 0.7 /CUMM) 0.1 Absolute Basophils (0.0 - 0.2 /CUMM) 0 PUBS MCHC (33.0 - 37.0 G/DL) 33.0 01/02 0834 Chemistry Sodium Cancelled Potassium Cancelled Chloride Cancelled Carbon Dioxide Cancelled Anion Gap Cancelled BUN Cancelled Creatinine Cancelled BUN/Creatinine Ratio Cancelled Glucose Cancelled Calcium Cancelled Total Bilirubin Cancelled AST Cancelled ALT Cancelled Alkaline Phosphatase Cancelled Total Protein Cancelled Albumin Cancelled Globulin Cancelled Albumin/Globulin Ratio Cancelled Amylase Cancelled Lipase Cancelled Total Beta HCG Cancelled Assessment/Plan Assessment/Recommendations: IMPRESSION: 1. Nausea, Vomiting and Abdominal Pain 2. 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 Abnormal CT Scan of the Abdomen 4. Tachycardia 5. Pleural Effusions by CT Scan 6. Morbid Obesity RECOMMENDATIONS: 1. Transfer to ICU given hypertension, tachycardia 2. Follow labs and I/Os very closely and aim for UOP >0.5 to 1 ml/kg/hr with decreased Hct 35 to 44% 3. Monitor O2 Saturation given presence of pleural effusion on CT 4. Cardiology Consultation given pleural effusion 5. Obtain records from [place] regarding events there after transfer Consult Acknowledgment - Thank you for your consult request.
--- NOTE | 2017-06-15 21:13 | Event Note ---
Event Note Event Note: Ms Kwok remained tachycardic despite being on fluids, which could likely be due to disease pathology from pancreatitis or, compensatory response to decreased ICF; discussed w/ Dr. Schaeffer, who thought that the pt be managed in the ICU for closer monitoring since the pt has necrotizing pancreatitis. The rate of RL infusion was changed from 125-->250ml/hr, and reassess if she improves in the next few hours. After re-assessing the in s and outs, the rate should be tailored as per her clinical resopnse. She also has plueral effusion, which could worsen her breating status, should be borne in mind, and use lasix as needed. Discussed w/ Tres Schaeffer and Maikol. Discussed the management plan w/ the pt, and she intends to call her at a later time. Relayed the information to the resident on calll.
--- NOTE | 2017-06-15 22:46 | RADIOLOGY REPORT ---
EXAMINATION: XR PORTABLE CHEST CLINICAL INFORMATION: Bilateral crackles. COMPARISON: None TECHNIQUE: Portable frontal view of the chest was obtained. FINDINGS: No significant abnormality is noted involving the heart, lungs, mediastinum, bony thorax or soft tissues. IMPRESSION: Unremarkable examination.
[2017-06-16] VITALS: BP 148/90
[2017-06-16 05:16] LABS: ABSOLUTE BASOPHIL COUNT 0 /CUMM (0.0-0.2); ABSOLUTE EOSINOPHIL COUNT 0.2 /CUMM (0.0-0.7); ABSOLUTE GRANULOCYTE CT 6.4 /CUMM (1.4-6.5); ABSOLUTE LYMPH COUNT 1.2 /CUMM (1.2-3.4); ABSOLUTE MONOCYTE COUNT 0.6 /CUMM (0.10-0.60); BASOPHIL % 0.3 % (0.0-2.0); EOSINOPHIL % 2.5 % (0-5); MEAN CORPUSCULAR HGB 30.5 PG (27.0-31.0); MEAN CORPUSCULAR HGB CONC 33.2 G/DL (33.0-37.0); MEAN CORPUSCULAR VOLUME 91.9 FL (81.0-99.0); MEAN PLATELET VOLUME 7.8 FL (7.4-10.4); PLATELET COUNT 294 /CUMM (130-400); RBC DISTRIBUTION WIDTH 13.9 % (11.5-14.5); RED BLOOD CELL CT 3.49 /CUMM (4.20-5.40); WHITE BLOOD CELL COUNT 8.4 /CUMM (4.8-10.8)
[2017-06-16 05:41] LABS: HEMATOCRIT 32.1 % (37-47)
--- NOTE | 2017-06-16 07:45 | Cons- CRCU ---
General Information and HPI Allergies/Medications Allergies: Coded Allergies: Sulfa (Sulfonamide Antibiotics) (Intermediate, RASH 05/21/17) valsartan (From DIOVAN) (RASH 05/21/17) Home Med List: Amlodipine Besylate 5 MG TABLET 2 TAB PO DAILY BP (Reported) Clonazepam 1 MG TABLET 1 TAB PO BIDP PRN ANXIETY (Reported) Duloxetine HCl 60 MG CAPSULE.DR 2 CAP PO DAILY MENTAL HEALTH/NERVE PAIN ( Reported) Ergocalciferol (Vitamin D2) (Vitamin D2) 50,000 UNIT CAPSULE 1 CAP PO QWED SUPPLEMENT (Reported) Hydromorphone (Hydromorphone HCl) 2 MG/ML VIAL 2 MG IV Q4 PRN SEVER PAIN Metoprolol Succinate 100 MG TAB.ER.24H 1 TAB PO DAILY HEART/BP (Reported) Montelukast Sodium 10 MG TABLET 1 TAB PO DAILY ALLERGIES (Reported) Ondansetron (Zofran Odt) 4 MG TAB.RAPDIS 1 TAB SL TID PRN NAUSEA/VOMITING ( Reported) Polyethylene Glycol 3350 (Miralax) 17 GRAM/DOSE POWDER 17 GM PO DAILY PRN CONSTIPATION . Sennosides/Docusate Sodium (Senna-Time S Tablet) 8.6 MG-50 MG TABLET 187 MG PO AT BEDTIME PRN constipation . Trazodone HCl 50 MG TABLET 1 TAB PO QPM SLEEP (Reported) Past History Travel History Traveled to [place] past 21 day No Medical History Blood Transfusion Hx: No Neurological: NONE EENT: NONE Cardiovascular: hypertension, hyperlipidemia Respiratory: asthma Gastrointestinal: pancreatitis Hepatic: ? 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 Age 67. MOTHER, , Age 34; Cause: MVA (motor vehicle accident). PGA, , Age 85; Cause: Colon cancer. Relation not specified for: *No pertinent family history Psychosocial History Where Do You Live? Home Who Do You Live With? spouse Services at Home: None Primary Language: Frisian Smoking Status: Never Smoked ETOH Use: denies use Illicit Drug Use: denies illicit drug use Living Will? 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 no Functional Ability ADLs Independent: dressing, eating, toileting, bathing. Ambulation: independent IADLs Independent: shopping, housework, finances, food prep, telephone, transportation , medication admin. Assessment/Plan Consult Acknowledgment - Thank you for your consult request.
--- NOTE | 2017-06-16 07:47 | PN- Resident CRCU ---
Leyla Zuniga 06/16/17 0747: Subjective HPI/CRCU Issues: Pancreatitis Pancreatic necrosis 24 Hour Events: Patient reports only mild abdominal tenderness but denies nausea or vomiting. UOP this a.m. 550 Objective Vital Signs & I&O Last 8 Hrs of Vitals and I&O: Intake & Output 06/16 1600 Intake Total Output Total Balance Patient 264 lb Weight Exam General Appearance: well developed/nourished, no apparent distress, alert, awake , comfortable Head: atraumatic, normal appearance Ears, Nose, Throat: normal pharynx, normal ENT inspection, hearing grossly normal Neck: normal inspection, supple, full range of motion Respiratory: normal breath sounds, no respiratory distress, lungs clear Cardiovascular: regular rate/rhythm Gastrointestinal: normal bowel sounds, soft, non-tender, no organomegaly Extremities: normal inspection, normal capillary refill, normal range of motion, no edema Current Medications: Current Medications Sig/Anay Start time Last Medication Dose Route Stop Time Status Admin Acetaminophen 650 MG Q6P PRN 06/15 1345 AC PO Amlodipine Besylate 10 MG DAILY 06/15 1620 AC 06/16 PO 1041 Clonazepam 1 MG BID PRN 06/15 1630 AC 06/15 PO 06/22 1629 2048 Duloxetine HCl 120 MG DAILY 06/16 1000 AC 06/16 PO 1040 Enoxaparin Sodium 40 MG DAILY 06/16 1055 AC 06/16 SC 1057 Enoxaparin Sodium 40 MG DAILY 06/16 1000 CAN SC Hydromorphone HCl 1 MG Q6P PRN 06/15 1345 AC 06/16 IV 1133 Lactated Ringer's 1,000 ML Q8H 06/15 2300 AC 06/16 IV 0746 Lactated Ringer's 1,000 ML Q4H 06/15 2130 DC IV Lactated Ringer's 1,000 ML Q8H 06/15 1345 DC 06/15 IV 1444 Magnesium Oxide 400 MG BID 06/16 1000 CAN PO 06/18 1000 Magnesium Sulfate 1 GM Q2H 06/16 0900 DC 06/16 Dextrose/Water 100 ML IV 06/16 1259 1133 Metoprolol Succinate 100 MG DAILY 06/15 1622 AC 06/16 PO 1041 Morphine Sulfate 2 MG Q6-PRN PRN 06/15 1345 AC IV Ondansetron HCl 0 .STK-MED ONE 06/15 1455 DC .ROUTE Ondansetron HCl 4 MG Q6P PRN 06/15 1415 AC 06/15 IV 2042 Pantoprazole Sodium 40 MG DAILY 06/15 1857 AC 06/16 IV 1038 Trazodone HCl 50 MG QPM 06/15 2200 AC 06/15 PO 2242 Trimethobenzamide HCl 200 MG Q6P PRN 06/16 2345 AC 06/16 IM 0834 Trimethobenzamide HCl 200 MG ONCE ONE 06/15 2215 DC 06/15 IM 06/15 2216 2242 Impression/Plan Impression/Problem List Impression: 47 yo F with a history of necrotic pancreatitis, obesity, hypertension, anxiety, DVT on the left LE, hyperlipidemia, recently hospitalized 3 weeks prior to this admission with acute pancreatitis in the setting of cholelithiasis, status post cholecystectomy during the admission and recently discharged from [place] last week from necrotic pancreatitis presenting for pancreatitis. She was transferred to the ICU for close monitoring due to tachycardia and plueral effusions. She remains stable requiring no further intervention at this time Pancreatitis Lipase 4759. amylase 778. CT abd: area of walled off necrosis involving the pancreatic head and neck. Decreasing but persistent adjacent inflammatory changes.Trace bilateral pleural effusions with atelectasis, increased from prior. * NPO with lactated Ringer * Tigan/Zofran prn nausea, protonix prophylaxis * ID recommendations appreciated * GI recommendations appreciated * ECHO to r/o SHD and/or valvular abnormalities for plueral effusions History of HTN * cont amlodpine and metoprolol History of anxiety * cont Cymbalta, Klonopin, trazodone for sleep DVT prophylaxis: Lovenox Full code Problem List: 1. Acute gallstone pancreatitis 2. Nausea & vomiting Pain Ratin Tomorrow's Labs & Rationales: CBC, Bundle Plan DVT/Prophylaxis: pharmacological Bert Monge 06/16/17 1055: Attending MD Review Statement Attending Sign Off Attending Cosign Statement: I have: examined this patient, reviewed [facility] EMR data, personally reviewd images, discussd w/resident/PA/SUPERVISOR SEAMING, discussed mgmt plan w/aiden, discussed mgmt plan w/CM, discussed mgmt plan w/pt. Other Findings: 47 o/f with acute pancreatitis recently trasnferred to [place] for possible aspiration of pancreatic wall on CT but managed conservatively and discharged to home, however patient symptoms did not improve with persistent nasuea so she decided to come to ER. LABS and imaging reviewed. Gi and ID consult noted. Patient seen/examined bedside. Patient denies any new complaints. She took diaudid this am. She is having good urine output. Her epigastric tenderness+. Patient transferred to ICU given her tachycardia and hypertension overnight. Her AST/ALTs appear to be normal. Her tachycardia seems to improve with hydration. Received total 4l of fluids. GI and ID consulted for pancreatic necrosis. c/w NPO, pain control, prn nausea meds, IVF as per GI. Diet/Nutrition plan as per GI. Abx (monitor off) as per ID. avoid medications which can cause pancreatitis. gi/dvt prophyalxis full code. Plan of care d.wed patient bedside. time spent >37 min... Plan of care d.wed patient bedside. time spent >37 min... Attending Sign Off Attending Cosign Statement: I have: examined this patient, reviewed [facility] EMR data, personally reviewd images, discussd w/resident/PA/SUPERVISOR SEAMING, discussed mgmt plan w/aiden, discussed mgmt plan w/CM, discussed mgmt plan w/pt. Other Findings: 47 o/f with acute pancreatitis recently trasnferred to [place] for possible aspiration of pancreatic wall on CT but managed conservatively and discharged to home, however patient symptoms did not improve with persistent nasuea so she decided to come to ER. LABS and imaging reviewed. Gi and ID consult noted. Patient seen/examined bedside. Patient denies any new complaints. She took diaudid this am. She is having good urine output. Her epigastric tenderness+. Patient transferred to ICU given her tachycardia and hypertension overnight. Her AST/ALTs appear to be normal. Her tachycardia seems to improve with hydration. Received total 4l of fluids. GI and ID consulted for pancreatic necrosis. c/w NPO, pain control, prn nausea meds, IVF as per GI. Diet/Nutrition plan as per GI. Abx (monitor off) as per ID. avoid medications which can cause pancreatitis. gi/dvt prophyalxis full code. Plan of care d.wed patient bedside. time spent >37 min...
[2017-06-16 08:00] VITALS: BP 124/70
--- NOTE | 2017-06-16 11:14 | PN- Infect Dx ---
Subjective Subjective: Afebrile. She was moved to the ICU last night because of hypertension and tachycardia, which have improved. She had several episodes of vomiting last night but has had none so far this morning. She still notes mild upper abdominal discomfort Objective Last 24 Hrs of Vital Signs/I&O Vital Signs Date Time Temp Pulse Resp B/P B/P Pulse O2 O2 Flow FiO2 Mean Ox Delivery Rate 06/16 1041 92 121/67 06/16 1041 92 121/67 06/16 0800 98 Room Air Room Air 06/16 0800 98.8 92 20 124/70 98 Room Air Room Air 06/16 0400 98 Room Air 06/16 0000 96 Room Air 06/16 0000 98.6 110 22 148/90 96 Room Air 06/15 1843 115 152/88 06/15 1842 115 152/88 06/15 1754 115 152/88 06/15 1616 98.5 125 22 160/98 98 Room Air 06/15 1410 98.8 110 20 137/91 100 Room Air 06/15 1228 98.9 102 20 137/79 99 Room Air Intake & Output 06/16 1600 06/16 0800 06/16 0000 Intake Total 965 405 Output Total 550 0 Balance 415 405 Intake, IV 965 375 Intake, Oral 30 Number 0 Bowel Movements Output, Urine 550 0 Patient 264 lb 265 lb Weight Physical Exam Other Physical Findings: She appears fairly comfortable in no acute distress Lungs are clear Heart regular rhythm with no murmur Abdomen is obese, soft, tender over the epigastrium, with no guarding or rebound , positive bowel sounds Extremities no cyanosis, clubbing or edema Results Last 24 Hours of Lab Results: Laboratory Tests 06/16 06/15 0440 1208 Chemistry Sodium (137 - 145 mmol/L) 138 Potassium (3.5 - 5.1 mmol/L) 4.1 Chloride (98 - 107 mmol/L) 103 Carbon Dioxide (22 - 30 mmol/L) 24 Anion Gap (5 - 16) 11 BUN (7 - 17 mg/dL) 4 L Creatinine (0.5 - 1.0 mg/dL) 0.5 Estimated GFR (>60 ml/min) > 60 BUN/Creatinine Ratio (7 - 25 %) 8.0 Lactic Acid Cancelled Phosphorus (2.5 - 4.5 mg/dL) 3.8 Magnesium (1.6 - 2.3 mg/dL) 1.5 L Amylase (30 - 110 U/L) 738 H Lipase (23 - 300 U/L) 3650 H Hematology CBC w Diff NO MAN DIFF REQ WBC (4.8 - 10.8 /CUMM) 8.4 RBC (4.20 - 5.40 /CUMM) 3.49 L Hgb (12.0 - 16.0 G/DL) 10.7 L Hct (37 - 47 %) 32.1 L MCV (81.0 - 99.0 FL) 91.9 MCH (27.0 - 31.0 PG) 30.5 RDW (11.5 - 14.5 %) 13.9 Plt Count (130 - 400 /CUMM) 294 MPV (7.4 - 10.4 FL) 7.8 Gran % (42.2 - 75.2 %) 76.0 H Lymphocytes % (20.5 - 51.1 %) 13.8 L Monocytes % (1.7 - 9.3 %) 7.4 Eosinophils % (0 - 5 %) 2.5 Basophils % (0.0 - 2.0 %) 0.3 Absolute Granulocytes (1.4 - 6.5 /CUMM) 6.4 Absolute Lymphocytes (1.2 - 3.4 /CUMM) 1.2 Absolute Monocytes (0.10 - 0.60 /CUMM) 0.6 Absolute Eosinophils (0.0 - 0.7 /CUMM) 0.2 Absolute Basophils (0.0 - 0.2 /CUMM) 0 PUBS MCHC (33.0 - 37.0 G/DL) 33.2 Last 24 Hours of Dangelo Results: No cultures Recent Imaging Studies: Chest x-ray June 15, personally reviewed, negative Assessment/Plan Impression: Recurrent pancreatitis, with evidence of necrosis in the head and neck of the pancreas on her recent CT scan, not significantly changed from the previous CT scan, with overall decreased inflammation and with temperatures and white blood cell count remaining normal. Have reviewed the CT scan with IR, who does not feel that the necrotic area can be accessed under CT scan. Have also discussed with GI, who feels that, in the absence of fever or leukocytosis, she should not require aspiration and that conservative management can be continued. She may benefit from a prolonged period of bowel rest, which might require TPN. Suggestion: 1. Further management of her pancreatitis per GI 2. Continue to follow off antibiotics
--- NOTE | 2017-06-16 14:07 | PN- Gastroenterology ---
Assessment/Plan Assessment/Recommendations: IMPRESSION: 1. Nausea, Vomiting and Abdominal Pain --adequately controlled on current regimen 2. 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 Abnormal CT Scan of the Abdomen 4. Tachycardia 5. Pleural Effusions by CT Scan 6. Morbid Obesity RECOMMENDATIONS: 1. Pleural Effusions seen on CT. Would get cardiology consult for echo. 2. Follow labs and I/Os very closely and aim for UOP >0.5 to 1 ml/kg/hr with decreased Hct 35 to 44%. Hct appropriately decreased after IVF. Would change to NS after 48 hours. 3. Monitor O2 Saturation given presence of pleural effusion on CT 4. Consider starting clear liquid diet tomorrow if patient still without significant abdominal pain 5. Obtain records from [place] regarding events there after transfer Subjective Subjective: Patient is feeling much better. Pain is well controlled. No nausea or vomiting. Objective Vital Signs and I&Os Vital Signs Date Time Temp Pulse Resp B/P B/P Pulse O2 O2 Flow FiO2 Mean Ox Delivery Rate 06/16 1041 92 121/67 06/16 1041 92 121/67 06/16 0800 98 Room Air Room Air 06/16 0800 98.8 92 20 124/70 98 Room Air Room Air 06/16 0400 98 Room Air 06/16 0000 96 Room Air 06/16 0000 98.6 110 22 148/90 96 Room Air 06/15 1843 115 152/88 06/15 1842 115 152/88 06/15 1754 115 152/88 06/15 1616 98.5 125 22 160/98 98 Room Air 06/15 1410 98.8 110 20 137/91 100 Room Air Intake & Output 06/16 1600 06/16 0400 06/15 1600 06/15 0400 06/14 1600 06/14 0400 Intake Total 791 170 7154 Output Total 550 0 Balance 806 395 1809 Intake, IV 531 033 3445 Intake, Oral 30 Number 0 Bowel Movements Output, Urine 550 0 Patient 264 lb 265 lb 170 lb Weight Weight Estimated Measurement Method Physical Exam General Appearance: well developed/nourished, mild distress Respiratory: lungs clear Cardiovascular: normal S1S2 without rub, murmur or gallop Abdomen: normal bowel sounds, soft, mild upper abdominal tenderness without rebound or guarding Neurologic/Psychiatric: awake, alert, oriented x 3 Skin: intact, normal color, warm/dry Current Medications: Current Medications Sig/Anay Start time Last Medication Dose Route Stop Time Status Admin Acetaminophen 650 MG Q6P PRN 06/15 1345 AC PO Amlodipine Besylate 10 MG DAILY 06/15 1620 AC 06/16 PO 1041 Clonazepam 1 MG BID PRN 06/15 1630 AC 06/15 PO 06/22 1629 2048 Duloxetine HCl 120 MG DAILY 06/16 1000 AC 06/16 PO 1040 Enoxaparin Sodium 40 MG DAILY 06/16 1055 AC 06/16 SC 1057 Enoxaparin Sodium 40 MG DAILY 06/16 1000 CAN SC Hydromorphone HCl 1 MG Q6P PRN 06/15 1345 AC 06/16 IV 1133 Lactated Ringer's 1,000 ML Q8H 06/15 2300 AC 06/16 IV 0746 Lactated Ringer's 1,000 ML Q4H 06/15 2130 DC IV Lactated Ringer's 1,000 ML Q8H 06/15 1345 DC 06/15 IV 1444 Magnesium Oxide 400 MG BID 06/16 1000 CAN PO 06/18 1000 Magnesium Sulfate 1 GM Q2H 06/16 0900 CO 06/16 Dextrose/Water 100 ML IV 06/16 1259 1133 Metoprolol Succinate 100 MG DAILY 06/15 1622 AC 06/16 PO 1041 Morphine Sulfate 2 MG Q6-PRN PRN 06/15 1345 AC IV Ondansetron HCl 0 .STK-MED ONE 06/15 1455 DC .ROUTE Ondansetron HCl 4 MG Q6P PRN 06/15 1415 AC 06/15 IV 2042 Pantoprazole Sodium 40 MG DAILY 06/15 1857 06/16 IV 1038 Trazodone HCl 50 MG QPM 06/15 2200 06/15 PO 2242 Trimethobenzamide HCl 200 MG Q6P PRN 06/16 2345 06/16 IM 0834 Trimethobenzamide HCl 200 MG ONCE ONE 06/15 2215 CO 06/15 IM 06/15 2216 2242 Results Pertinent Lab Results: Laboratory Tests 06/16 06/15 06/15 0440 1208 1015 Chemistry Sodium (137 - 145 mmol/L) 138 139 Potassium (3.5 - 5.1 mmol/L) 4.1 3.9 Chloride (98 - 107 mmol/L) 103 108 H Carbon Dioxide (22 - 30 mmol/L) 24 23 Anion Gap (5 - 16) 11 8 BUN (7 - 17 mg/dL) 4 L 6 L Creatinine (0.5 - 1.0 mg/dL) 0.5 0.6 Estimated GFR (>60 ml/min) > 60 > 60 BUN/Creatinine Ratio (7 - 25 %) 8.0 10.0 Glucose (65 - 99 mg/dL) 96 Lactic Acid (0.7 - 2.1 mmol/L) Cancelled 0.8 Calcium (8.4 - 10.2 mg/dL) 9.1 Phosphorus (2.5 - 4.5 mg/dL) 3.8 Magnesium (1.6 - 2.3 mg/dL) 1.5 L Total Bilirubin (0.2 - 1.3 mg/dL) 0.6 AST (14 - 36 U/L) 25 ALT (9 - 52 U/L) 33 Alkaline Phosphatase (<127 U/L) 86 Total Protein (6.3 - 8.2 g/dL) 5.7 L Albumin (3.5 - 5.0 g/dL) 3.1 L Globulin (1.9 - 4.2 gm/dL) 2.6 Albumin/Globulin Ratio (1.1 - 2.2 %) 1.2 Amylase (30 - 110 U/L) 738 H 778 H Lipase (23 - 300 U/L) 3650 H 4759 H Total Beta HCG (NEGATIVE) NEGATIVE Hematology CBC w Diff NO MAN DIFF REQ WBC (4.8 - 10.8 /CUMM) 8.4 RBC (4.20 - 5.40 /CUMM) 3.49 L Hgb (12.0 - 16.0 G/DL) 10.7 L Hct (37 - 47 %) 32.1 L MCV (81.0 - 99.0 FL) 91.9 MCH (27.0 - 31.0 PG) 30.5 RDW (11.5 - 14.5 %) 13.9 Plt Count (130 - 400 /CUMM) 294 MPV (7.4 - 10.4 FL) 7.8 Gran % (42.2 - 75.2 %) 76.0 H Lymphocytes % (20.5 - 51.1 %) 13.8 L Monocytes % (1.7 - 9.3 %) 7.4 Eosinophils % (0 - 5 %) 2.5 Basophils % (0.0 - 2.0 %) 0.3 Absolute Granulocytes (1.4 - 6.5 /CUMM) 6.4 Absolute Lymphocytes (1.2 - 3.4 /CUMM) 1.2 Absolute Monocytes (0.10 - 0.60 /CUMM) 0.6 Absolute Eosinophils (0.0 - 0.7 /CUMM) 0.2 Absolute Basophils (0.0 - 0.2 /CUMM) 0 PUBS MCHC (33.0 - 37.0 G/DL) 33.2 06/15 06/15 0929 0834 Chemistry Sodium Cancelled Potassium Cancelled Chloride Cancelled Carbon Dioxide Cancelled Anion Gap Cancelled BUN Cancelled Creatinine Cancelled BUN/Creatinine Ratio Cancelled Glucose Cancelled Calcium Cancelled Total Bilirubin Cancelled AST Cancelled ALT Cancelled Alkaline Phosphatase Cancelled Total Protein Cancelled Albumin Cancelled Globulin Cancelled Albumin/Globulin Ratio Cancelled Amylase Cancelled Lipase Cancelled Total Beta HCG Cancelled Hematology CBC w Diff NO MAN DIFF REQ WBC (4.8 - 10.8 /CUMM) 9.8 RBC (4.20 - 5.40 /CUMM) 4.05 L Hgb (12.0 - 16.0 G/DL) 12.3 Hct (37 - 47 %) 37.2 MCV (81.0 - 99.0 FL) 91.9 MCH (27.0 - 31.0 PG) 30.3 RDW (11.5 - 14.5 %) 13.6 Plt Count (130 - 400 /CUMM) 358 MPV (7.4 - 10.4 FL) 8.1 Gran % (42.2 - 75.2 %) 82.7 H Lymphocytes % (20.5 - 51.1 %) 11.7 L Monocytes % (1.7 - 9.3 %) 4.4 Eosinophils % (0 - 5 %) 1.2 Basophils % (0.0 - 2.0 %) 0 Absolute Granulocytes (1.4 - 6.5 /CUMM) 8.1 H Absolute Lymphocytes (1.2 - 3.4 /CUMM) 1.1 L Absolute Monocytes (0.10 - 0.60 /CUMM) 0.4 Absolute Eosinophils (0.0 - 0.7 /CUMM) 0.1 Absolute Basophils (0.0 - 0.2 /CUMM) 0 PUBS MCHC (33.0 - 37.0 G/DL) 33.0
[2017-06-16 16:00] VITALS: BP 130/80
[2017-06-17] VITALS: BP 102/68
[2017-06-17 06:00] LABS: ABSOLUTE BASOPHIL COUNT 0 /CUMM (0.0-0.2); ABSOLUTE EOSINOPHIL COUNT 0.5 /CUMM (0.0-0.7); ABSOLUTE GRANULOCYTE CT 5.5 /CUMM (1.4-6.5); ABSOLUTE LYMPH COUNT 1.2 /CUMM (1.2-3.4); ABSOLUTE MONOCYTE COUNT 0.6 /CUMM (0.10-0.60); BASOPHIL % 0.5 % (0.0-2.0); EOSINOPHIL % 6.7 % (0-5); GRANULOCYTE % 69.7 % (42.2-75.2); HEMATOCRIT 31.3 % (37-47); MEAN CORPUSCULAR HGB 30.7 PG (27.0-31.0); MEAN CORPUSCULAR HGB CONC 33.2 G/DL (33.0-37.0); MEAN CORPUSCULAR VOLUME 92.3 FL (81.0-99.0); MEAN PLATELET VOLUME 7.8 FL (7.4-10.4); PLATELET COUNT 268 /CUMM (130-400); RBC DISTRIBUTION WIDTH 13.7 % (11.5-14.5); RED BLOOD CELL CT 3.39 /CUMM (4.20-5.40); WHITE BLOOD CELL COUNT 7.8 /CUMM (4.8-10.8)
--- NOTE | 2017-06-17 07:37 | PN- Resident CRCU ---
Leyla Zuniga 06/17/17 0737: Subjective HPI/CRCU Issues: Pancreatitis Pancreatic necrosis 24 Hour Events: Patient reports that she feels bloated and muscleache after pulling her muscle while guarding her abdomen during her ECHO but denies nausea or vomiting Objective Vital Signs & I&O Last 8 Hrs of Vitals and I&O: Tmax: 98.7 I:984 O:275 Exam General Appearance: well developed/nourished, alert, anxious Head: atraumatic, normal appearance Ears, Nose, Throat: normal pharynx, normal ENT inspection, hearing grossly normal Neck: normal inspection, supple, full range of motion Respiratory: normal breath sounds, no respiratory distress, lungs clear Cardiovascular: regular rate/rhythm Gastrointestinal: normal bowel sounds, soft, non-tender Extremities: normal inspection, normal capillary refill, normal range of motion, no edema Current Medications: Current Medications Sig/Anay Start time Last Medication Dose Route Stop Time Status Admin Acetaminophen 650 MG Q6P PRN 06/15 1345 AC PO Amlodipine Besylate 10 MG DAILY 06/15 1620 AC 06/17 PO 0958 Clonazepam 1 MG BID PRN 06/15 1630 AC 06/15 PO 06/22 1629 2048 Duloxetine HCl 120 MG DAILY 06/16 1000 AC 06/17 PO 0957 Enoxaparin Sodium 40 MG DAILY 06/16 1055 AC 06/17 SC 0958 Hydromorphone HCl 1 MG Q6P PRN 06/15 1345 AC 06/17 IV 0950 Lactated Ringer's 1,000 ML Q8H 06/15 2300 AC 06/17 IV 1142 Lorazepam 0.25 MG ONCE ONE 06/17 1445 DC IV 06/17 1446 Magnesium Oxide 400 MG BID 06/17 1000 AC 06/17 PO 06/17 2201 0958 Metoprolol Succinate 100 MG DAILY 06/15 1622 AC 06/17 PO 0958 Morphine Sulfate 2 MG Q6-PRN PRN 06/15 1345 AC IV Ondansetron HCl 4 MG Q6P PRN 06/15 1415 AC 06/15 IV 2042 Pantoprazole Sodium 40 MG DAILY 06/15 1857 AC 06/17 IV 0957 Potassium Chloride 40 MEQ ONCE ONE 06/17 0800 DC 06/17 PO 06/17 0801 0958 Simethicone 80 MG ONCE ONE 06/17 1445 DC PO 06/17 1446 Trazodone HCl 50 MG QPM 06/15 2200 AC 06/16 PO 2217 Trimethobenzamide HCl 200 MG Q6P PRN 06/16 2345 AC 06/16 IM 0834 ECHO Findings: 06/16/17 CONCLUSIONS 1. Normal EF of 65%. 2. Mild left atrial enlargement. 3. Trace mitral regurgitation. 4. Trace tricuspid regurgitation. Impression/Plan Impression/Problem List Impression: 47 yo F with a history of necrotic pancreatitis, obesity, hypertension, anxiety, DVT on the left LE, hyperlipidemia, recently hospitalized 3 weeks prior to this admission with acute pancreatitis in the setting of cholelithiasis, status post cholecystectomy during the admission and recently discharged from [facility] last week from necrotic pancreatitis presenting for pancreatitis. She was transferred to the ICU for close monitoring due to tachycardia and plueral effusions. She remains stable requiring no further intervention at this time Pancreatitis Lipase 4759. amylase 778. CT abd: area of walled off necrosis involving the pancreatic head and neck. Decreasing but persistent adjacent inflammatory changes.Trace bilateral pleural effusions with atelectasis, increased from prior. ECHO demonstrated an EF of 65% , mild left atrial, trace mitral regurgitation enlargement, trace tricuspid regurgitation * NPO with lactated Ringer * Tigan/Zofran prn nausea, protonix prophylaxis * ID recommendations appreciated * GI recommendations appreciated History of HTN * cont amlodpine and metoprolol History of anxiety * cont Cymbalta, Klonopin, trazodone for sleep DVT prophylaxis: Lovenox Full code Problem List: 1. Acute pancreatitis Pain Ratin Pain Location: Generalized Tomorrow's Labs & Rationales: CBC, Bundle Plan DVT/Prophylaxis: pharmacological Bert Monge 06/17/17 1137: Attending MD Review Statement Attending Sign Off Attending Cosign Statement: I have: examined this patient, reviewed al EMR data, personally reviewd images, discussd w/resident/PA/COMPOUND [employer]ER, discussed mgmt plan w/aiden, discussed mgmt plan w/CM. Other Findings: 47 o/f with acute pancreatitis recently trasnferred to [place] for possible aspiration of pancreatic wall on CT but managed conservatively and discharged to home, however patient symptoms did not improve with persistent nasuea so she decided to come to ER. LABS and imaging reviewed. Gi and ID consult noted. Vitals with borderline tachycardia. Patient seen/examined bedside. Patient denies any new complaints. She took diaudid this am. She is having good urine output. Her epigastric tenderness+. Patient transferred to ICU given her tachycardia and hypertension overnight. Her AST/ALTs appear to be normal. GI and ID consulted for pancreatic necrosis. c/w pain control, prn nausea meds, IVF as per GI. Diet/Nutrition plan as per GI. Abx (monitor off) as per ID. avoid medications which can cause pancreatitis. gi/dvt prophyalxis full code. Plan of care d.wed patient bedside.
[2017-06-17 08:00] VITALS: BP 120/80
--- NOTE | 2017-06-17 14:13 | ECHOCARDIOGRAM REPORT ---
CR VASQUEZ Age: 47 : 1970 Gender: F Exam Date: 06/16/2017 16:28 Exam Location: [facility] Ht (in): 62 Wt (lb): 263 BSA: 2.36 BP: 121 / 67 Ordering Physician: Leyla Zuniga MD Referring Physician: Maycol Chapman MD, PhD Technologist: Alem Escudero [facility] Room Number: 105 Indications: STRUCTURAL HEART DISEASE Rhythm: Technical Quality: fair FINDINGS Left Ventricle Normal left ventricular size, wall thickness and systolic function with no obvious regional wall motion abnormalities. Normal left ventricular diastolic filling pattern for age. The ejection fraction is visually estimated at 65%. Right Ventricle The right ventricle is normal in size and function. Right Atrium The right atrium is normal in size. Left Atrium The left atrium is mildly enlarged. The interatrial septum is intact. Mitral Valve The mitral valve is normal in structure and function. There is trace mitral regurgitation. Aortic Valve Structurally normal aortic valve without significant sclerosis or stenosis. There is no aortic regurgitation. Tricuspid Valve The tricuspid valve is normal in structure and function. There is trace tricuspid regurgitation. Pulmonary artery systolic pressure is normal. Pulmonic Valve Structurally normal pulmonic valve. There is no pulmonic regurgitation. Pericardium Normal pericardium without effusion. No pleural effusion. Great Vessels Normal aortic root dimension. The aortic arch and great vessels are well seen and are normal. CONCLUSIONS 1. Normal EF of 65%. 2. Mild left atrial enlargement. 3. Trace mitral regurgitation. 4. Trace tricuspid regurgitation. Maycol Chapman M.D. (Electronically Signed) Final Date: 17 June 2017 14:12 MEASUREMENTS (Male / Female) Normal Values 2D ECHO LV Diastolic Diameter PLAX 4.4 cm 4.2 - 5.9 / 3.9 - 5.3 cm LV Systolic Diameter PLAX 2.7 cm 2.1 - 4.0 cm LV Fractional Shortening PLAX 38.6 % 25 - 46 % LV Ejection Fraction 2D Teich 69.2 % IVS Diastolic Thickness 0.9 cm LVPW Diastolic Thickness 1.1 cm LV Relative Wall Thickness 0.5 RV Internal Dim ED PLAX 2.7 cm 1.9 - 3.8 cm LVOT Diameter 1.8 cm Aortic Root Diameter 2.8 cm LA Systolic Diameter LX 4.2 cm 3.0 - 4.0 / 2.7 - 3.8 cm LA Volume 36.0 cm 18 - 58 / 22 - 52 cm Ascending Aorta Diameter 2.4 cm DOPPLER AV Peak Velocity 163.0 cm/s AV Peak Gradient 10.6 mmHg AV Mean Velocity 112.0 cm/s AV Mean Gradient 6.0 mmHg AV Velocity Time Integral 31.2 cm LVOT Peak Velocity 148.0 cm/s LVOT Peak Gradient 8.8 mmHg LVOT Mean Velocity 93.8 cm/s LVOT Mean Gradient 4.0 mmHg LVOT Velocity Time Integral 27.2 cm LVOT Stroke Volume 69.2 cm AV Area Cont Eq vti 2.2 cm AV Area Cont Eq pk 2.3 cm MV Peak Velocity 121.0 cm/s MV Peak Gradient 5.9 mmHg MV Mean Velocity 72.1 cm/s MV Mean Gradient 2.0 mmHg Mitral E Point Velocity 105.0 cm/s Mitral A Point Velocity 65.6 cm/s Mitral E to A Ratio 1.6 MV PHT Velocity 123.0 cm/s MV Deceleration [place] 623.0 cm/s MV Pressure Half Time 59.2 ms MV Area PHT 3.7 cm MV Deceleration Time 180.0 ms TR Peak Velocity 135.0 cm/s TR Peak Gradient 7.3 mmHg Right Atrial Pressure 5.0 mmHg Pulmonary Artery Systolic Pressu 12.3 mmHg Right Ventricular Systolic Press 12.3 mmHg PV Peak Velocity 132.0 cm/s PV Peak Gradient 7.0 mmHg PV Mean Velocity 90.2 cm/s PV Mean Gradient 4.0 mmHg PV Velocity Time Integral 29.2 cm LV E' Lateral Velocity 14.3 cm/s Mitral E to LV E' Lateral Ratio 7.3 LV E' Septal Velocity 6.9 cm/s Mitral E to LV E' Septal Ratio 15.2
[2017-06-17 16:00] VITALS: BP 144/80
[2017-06-17 23:00] VITALS: BP 120/84
[2017-06-18 05:48] LABS: ABSOLUTE BASOPHIL COUNT 0 /CUMM (0.0-0.2); ABSOLUTE EOSINOPHIL COUNT 0.5 /CUMM (0.0-0.7); ABSOLUTE GRANULOCYTE CT 4.9 /CUMM (1.4-6.5); ABSOLUTE LYMPH COUNT 0.9 /CUMM (1.2-3.4); ABSOLUTE MONOCYTE COUNT 0.6 /CUMM (0.10-0.60); BASOPHIL % 0.4 % (0.0-2.0); EOSINOPHIL % 6.8 % (0-5); GRANULOCYTE % 71.5 % (42.2-75.2); MEAN CORPUSCULAR HGB 30.6 PG (27.0-31.0); MEAN CORPUSCULAR HGB CONC 33.2 G/DL (33.0-37.0); MEAN CORPUSCULAR VOLUME 92.3 FL (81.0-99.0); MEAN PLATELET VOLUME 8.1 FL (7.4-10.4); PLATELET COUNT 257 /CUMM (130-400); RBC DISTRIBUTION WIDTH 13.5 % (11.5-14.5); RED BLOOD CELL CT 3.46 /CUMM (4.20-5.40); WHITE BLOOD CELL COUNT 6.9 /CUMM (4.8-10.8)
--- NOTE | 2017-06-18 07:56 | PN- Resident CRCU ---
See Addendum Subjective HPI/CRCU Issues: Pancreatitis Pancreatic tissue necrosis Nausea/vomiting - resolved 24 Hour Events: No acute events overnight Objective Vital Signs & I&O Last 8 Hrs of Vitals and I&O: Tmax: 98.7 I:906 O:400 Exam General Appearance: well developed/nourished, no apparent distress, alert, awake , comfortable Head: atraumatic, normal appearance Ears, Nose, Throat: normal pharynx, normal ENT inspection, hearing grossly normal Neck: normal inspection, supple, full range of motion Respiratory: normal breath sounds, no respiratory distress, lungs clear Cardiovascular: regular rate/rhythm Gastrointestinal: normal bowel sounds, soft, non-tender Extremities: normal inspection, normal capillary refill, normal range of motion, no edema Current Medications: Current Medications Sig/Anay Start time Last Medication Dose Route Stop Time Status Admin Acetaminophen 650 MG Q6P PRN 06/15 1345 AC PO Amlodipine Besylate 10 MG DAILY 06/15 1620 AC 06/17 PO 0958 Clonazepam 1 MG BID PRN 06/15 1630 AC 06/17 PO 06/22 1629 1540 Duloxetine HCl 120 MG DAILY 06/16 1000 AC 06/17 PO 0957 Enoxaparin Sodium 40 MG DAILY 06/16 1055 AC 06/17 SC 0958 Hydromorphone HCl 1 MG Q6P PRN 06/15 1345 AC 06/18 IV 0349 Lactated Ringer's 1,000 ML Q8H 06/15 2300 AC 06/18 IV 0350 Lorazepam 0.25 MG ONCE ONE 06/17 1445 DC 06/17 IV 06/17 1446 1500 Magnesium Oxide 400 MG BID 06/18 1000 AC PO 06/20 1000 Magnesium Oxide 400 MG BID 06/17 1000 DC 06/17 PO 06/17 2201 2115 Metoprolol Succinate 100 MG DAILY 06/15 1622 AC 06/17 PO 0958 Morphine Sulfate 2 MG Q6-PRN PRN 06/15 1345 AC IV Ondansetron HCl 4 MG Q6P PRN 06/15 1415 AC 06/15 IV 2042 Pantoprazole Sodium 40 MG DAILY 06/15 1857 AC 06/17 IV 0957 Simethicone 80 MG Q4P PRN 06/17 2145 AC PO Simethicone 80 MG ONCE ONE 06/17 1445 DC 06/17 PO 06/17 1446 1540 Trazodone HCl 50 MG QPM 06/15 2200 AC 06/17 PO 2116 Trimethobenzamide HCl 200 MG Q6P PRN 06/16 2345 AC 06/16 IM 0834 Impression/Plan Impression/Problem List Impression: 47 yo F with a history of necrotic pancreatitis, obesity, hypertension, anxiety, DVT on the left LE, hyperlipidemia, recently hospitalized 3 weeks prior to this admission with acute pancreatitis in the setting of cholelithiasis, status post cholecystectomy during the admission and recently discharged from [place] last week from necrotic pancreatitis presenting for pancreatitis. She was transferred to the ICU for close monitoring due to tachycardia and plueral effusions. She remains stable requiring no further intervention at this time Pancreatitis Lipase [address]759. amyl[address]. CT abd: area of walled off necrosis involving the pancreatic head and neck. Decreasing but persistent adjacent inflammatory changes.Trace bilateral pleural effusions with atelectasis, increased from prior. ECHO demonstrated an EF of 65% , mild left atrial, trace mitral regurgitation enlargement, trace tricuspid regurgitation. CXR demonstrated resolution of trace BL plueral effusions * NPO with lactated Ringer * Tigan/Zofran prn nausea, protonix prophylaxis * ID recommendations appreciated * GI recommendations appreciated History of HTN * cont amlodpine and metoprolol History of anxiety * cont Cymbalta, Klonopin, trazodone for sleep DVT prophylaxis: Lovenox Full code Problem List: 1. Acute pancreatitis 2. Nausea & vomiting Pain Ratin Tomorrow's Labs & Rationales: CBC, Bundle Plan DVT/Prophylaxis: pharmacological
[2017-06-18 08:00] VITALS: BP 132/76
--- NOTE | 2017-06-18 11:22 | PN- Infect Dx ---
Subjective Subjective: Afebrile. She complains of abdominal pain which she feels is muscular secondary to recent straining. Objective Last 24 Hrs of Vital Signs/I&O Vital Signs Date Time Temp Pulse Resp B/P B/P Pulse O2 O2 Flow FiO2 Mean Ox Delivery Rate 06/18 0951 98.1 104 19 141/79 06/18 0950 98.1 104 19 141/79 06/18 0400 94 Room Air Room Air 06/18 0000 91 Room Air Room Air 06/17 2300 96.5 85 16 120/84 91 Room Air Room Air 06/17 1940 93 Room Air Room Air 06/17 1600 94 Room Air Room Air 06/17 1600 98.7 103 20 144/80 94 Room Air Room Air 06/17 1200 94 Room Air Room Air Intake & Output 06/18 1600 06/18 0800 06/18 0000 Intake Total 906 740 Output Total 400 600 Balance 506 140 Intake, IV 906 710 Intake, Oral 30 Number 0 0 Bowel Movements Output, Urine 400 600 Physical Exam Other Physical Findings: She appears comfortable in no acute distress Lungs are clear Heart regular rhythm with no murmur Abdomen is obese, soft, tender to minimal palpation in the mid abdomen, with guarding but no rebound, positive bowel sounds Extremities no cyanosis, clubbing or edema Results Last 24 Hours of Lab Results: Laboratory Tests 06/18 405 Chemistry Sodium (137 - 145 mmol/L) 137 Potassium (3.5 - 5.1 mmol/L) 4.1 Chloride (98 - 107 mmol/L) 100 Carbon Dioxide (22 - 30 mmol/L) 23 Anion Gap (5 - 16) 14 BUN (7 - 17 mg/dL) 4 L Creatinine (0.5 - 1.0 mg/dL) 0.5 Estimated GFR (>60 ml/min) > 60 Glucose (65 - 99 mg/dL) 87 Calcium (8.4 - 10.2 mg/dL) 8.8 Phosphorus (2.5 - 4.5 mg/dL) 4.1 Magnesium (1.6 - 2.3 mg/dL) 1.6 Total Bilirubin (0.2 - 1.3 mg/dL) 0.7 AST (14 - 36 U/L) 15 ALT (9 - 52 U/L) 36 Albumin (3.5 - 5.0 g/dL) 2.9 L Hematology CBC w Diff NO MAN DIFF REQ WBC (4.8 - 10.8 /CUMM) 6.9 RBC (4.20 - 5.40 /CUMM) 3.46 L Hgb (12.0 - 16.0 G/DL) 10.6 L Hct (37 - 47 %) 32.0 L MCV (81.0 - 99.0 FL) 92.3 MCH (27.0 - 31.0 PG) 30.6 RDW (11.5 - 14.5 %) 13.5 Plt Count (130 - 400 /CUMM) 257 MPV (7.4 - 10.4 FL) 8.1 Gran % (42.2 - 75.2 %) 71.5 Lymphocytes % (20.5 - 51.1 %) 12.9 L Monocytes % (1.7 - 9.3 %) 8.4 Eosinophils % (0 - 5 %) 6.8 H Basophils % (0.0 - 2.0 %) 0.4 Absolute Granulocytes (1.4 - 6.5 /CUMM) 4.9 Absolute Lymphocytes (1.2 - 3.4 /CUMM) 0.9 L Absolute Monocytes (0.10 - 0.60 /CUMM) 0.6 Absolute Eosinophils (0.0 - 0.7 /CUMM) 0.5 Absolute Basophils (0.0 - 0.2 /CUMM) 0 PUBS MCHC (33.0 - 37.0 G/DL) 33.2 Last 24 Hours of [place] Results: No new cultures Assessment/Plan Impression: Recurrent pancreatitis, with evidence of necrosis in the head and neck of the pancreas on her recent CT scan, not significantly changed from the previous CT scan, and with overall decreased inflammation and with temperatures and white blood cell count remaining normal off antibiotics. Though she may ultimately require an aspiration of the pancreatic necrosis, this is to be deferred at this time unless her condition changes (for example fever or leukocytosis) Suggestion: 1. Further management of her pancreatitis per GI 2. Continue to follow off antibiotics
--- NOTE | 2017-06-18 13:13 | Cons- Cardiology ---
General Information and HPI Consulting Request Date of Consult: 06/18/17 Requested By: Bert Monge MD History of Present Illness: Sapphire is a 47 year old female with history of hypertension, dyslipidemia and a hypercoagulable state status post a left lower extremity DVT. The details of her hypercoagulable state are not known. This patient recently underwent an emergent cholecystectomy for gallstone pancreatitis. At her baseline, this patient can walk a reasonable distance on a treadmill without chest discomfort, shortness of breath or lightheadedness. She has rare palpitations. She does tend to snore at night. At present, she does have shortness of breath. This patient had a recurrent episode of pancreatitis that resulted in an admission to [facility] with subsequent evaluation at [facility] for drainage of a walled off area of pancreatic necrosis. She returns with abdominal discomfort and shortness of breath. Pleural effusions are noted however her echocardiogram shows a normal EF. Allergies/Medications Allergies: Coded Allergies: Sulfa (Sulfonamide Antibiotics) (Intermediate, RASH 05/21/17) valsartan (From DIOVAN) (RASH 05/21/17) Home Med List: Amlodipine Besylate 5 MG TABLET 2 TAB PO DAILY BP (Reported) Clonazepam 1 MG TABLET 1 TAB PO BIDP PRN ANXIETY (Reported) Duloxetine HCl 60 MG CAPSULE.DR 2 CAP PO DAILY MENTAL HEALTH/NERVE PAIN ( Reported) Ergocalciferol (Vitamin D2) (Vitamin D2) 50,000 UNIT CAPSULE 1 CAP PO QWED SUPPLEMENT (Reported) Hydromorphone (Hydromorphone HCl) 2 MG/ML VIAL 2 MG IV Q4 PRN SEVER PAIN Metoprolol Succinate 100 MG TAB.ER.24H 1 TAB PO DAILY HEART/BP (Reported) Montelukast Sodium 10 MG TABLET 1 TAB PO DAILY ALLERGIES (Reported) Ondansetron (Zofran Odt) 4 MG TAB.RAPDIS 1 TAB SL TID PRN NAUSEA/VOMITING ( Reported) Polyethylene Glycol 3350 (Miralax) 17 GRAM/DOSE POWDER 17 GM PO DAILY PRN CONSTIPATION . Sennosides/Docusate Sodium (Senna-Time S Tablet) 8.6 MG-50 MG TABLET 187 MG PO AT BEDTIME PRN constipation . Trazodone HCl 50 MG TABLET 1 TAB PO QPM SLEEP (Reported) Review of Systems Review of Systems: Nausea Past History Travel History Traveled to [place] past 21 day No Medical History Blood Transfusion Hx: No Neurological: NONE EENT: Lasik surgery Cardiovascular: hypertension, hyperlipidemia Respiratory: asthma, obstructive sleep apnea Gastrointestinal: pancreatitis Hepatic: ? 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 Age 67. MOTHER, , Age 34; Cause: MVA (motor vehicle accident). PGA, , Age 85; Cause: Colon cancer. Relation not specified for: *No pertinent family history Psychosocial History Where Do You Live? Home Who Do You Live With? spouse Services at Home: None Primary Language: Divehi Smoking Status: Never Smoked ETOH Use: denies use Illicit Drug Use: denies illicit drug use Living Will? 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 no Functional Ability ADLs Independent: dressing, eating, toileting, bathing. Ambulation: independent IADLs Independent: shopping, housework, finances, food prep, telephone, transportation , medication admin. Exam & Diagnostic Data Vital Signs and I&O Vital Signs Date Time Temp Pulse Resp B/P B/P Pulse O2 O2 Flow FiO2 Mean Ox Delivery Rate 06/18 0951 98.1 104 19 141/79 06/18 0950 98.1 104 19 141/79 06/18 0800 97 Room Air Room Air 06/18 0800 98.1 90 19 132/76 97 Room Air Room Air 06/18 0400 94 Room Air Room Air 06/18 0000 91 Room Air Room Air 06/17 2300 96.5 85 16 120/84 91 Room Air Room Air 06/17 1940 93 Room Air Room Air 06/17 1600 94 Room Air Room Air 06/17 1600 98.7 103 20 144/80 94 Room Air Room Air Intake & Output 06/18 1600 06/18 0800 05 0000 06/17 1600 06/17 0800 06/17 0000 Intake Total 426 028 3305 984 1999 Output Total 400 600 600 275 300 Balance 506 140 903 106 1059 Intake, IV 886 959 4239 984 2000 Intake, Oral 30 50 Number 0 0 1 0 Bowel Movements Output, Urine 400 600 600 275 300 Patient 259 lb Weight Weight Bed scale Measurement Method Physical Exam: General: WD/Obese female in mild distress, alert and oriented x 3 HEENT: NC/AT, PERRL, EOMI Neck: no JVD, no carotid bruit Heart: RRR w/o murmur Lungs: clear bilaterally Abdomen: soft, obese, tender, +ve bowel sounds Extremities: no edema Assessment/Plan Assessment/Plan * This patient has some shortness of breath in the setting of small pleural effusions and obesity. I think the pleural effusions are related to inflammation from her pancreatitis and are not a manifestation of decompensated heart failure. Her EF is normal and there is no significant valvular disease. * This patient does have a history of hypertension which is likely contributed to by sleep apnea. Eventual weight loss surgery may improve this. Continue Amlodipine and Metoprolol Consult Acknowledgment - Thank you for your consult request.
--- NOTE | 2017-06-18 14:30 | PN- Gastroenterology ---
Assessment/Plan Assessment/Recommendations: Assessment: Ms. Kwok is a 47 year old female admitted with recurrent pancreatitis with necrosis who is currently doing well with conservative management and being observed off of antibiotics. She has been afebrile and without a high white count and her pain is improving. Recommendations: 1. Continue sips of clear liquids and if no signficant changes would advance as tolerated in the am. 2. Analgesia as needed. 3. Continue to observe off of antibiotics 4. To consider repeat imaging only if pt spikes a temp or a white count. 5. Maintenance IV fluids. I will continue to follow this patient and make further recommendations based on his clinical course. Subjective Subjective: Pt feeling well, tolerating sips of clear liquids, no vomiting, pain is improved. Objective Vital Signs and I&Os Vital Signs Date Time Temp Pulse Resp B/P B/P Pulse O2 O2 Flow FiO2 Mean Ox Delivery Rate 06/18 0951 98.1 104 19 141/79 06/18 0950 98.1 104 19 141/79 06/18 0800 97 Room Air Room Air 06/18 0800 98.1 90 19 132/76 97 Room Air Room Air 06/18 0400 94 Room Air Room Air 06/18 0000 91 Room Air Room Air 06/17 2300 96.5 85 16 120/84 91 Room Air Room Air 06/17 1940 93 Room Air Room Air 06/17 1600 94 Room Air Room Air 06/17 1600 98.7 103 20 144/80 94 Room Air Room Air Intake & Output 06/18 1600 06/18 0400 06/17 1600 06/17 0400 06/16 1600 06/16 0400 Intake Total 905 788 1133 1999 1745 405 Output Total 400 600 875 300 950 0 Balance 342 513 8977 1700 795 405 Intake, IV 732 996 3701 1999 1745 375 Intake, Oral 30 50 30 Number 0 0 1 0 Bowel Movements Output, Urine 400 600 875 300 950 0 Patient 259 lb 264 lb 265 lb Weight Weight Bed scale Measurement Method Physical Exam General Appearance: well developed/nourished, no apparent distress, alert, comfortable, obese Head: atraumatic, normal appearance Neck: normal inspection, supple, full range of motion Respiratory: normal breath sounds, chest non-tender Cardiovascular: regular rate/rhythm Abdomen: normal bowel sounds, soft, non-tender, no organomegaly Back: normal inspection Extremities: no edema Skin: intact, normal color Current Medications: Current Medications Sig/Anay Start time Last Medication Dose Route Stop Time Status Admin Acetaminophen 650 MG Q6P PRN 06/15 1345 AC PO Amlodipine Besylate 10 MG DAILY 06/15 1620 AC 06/18 PO 0950 Clonazepam 1 MG BID PRN 06/15 1630 AC 06/17 PO 06/22 1629 1540 Duloxetine HCl 120 MG DAILY 06/16 1000 AC 06/18 PO 0951 Enoxaparin Sodium 40 MG DAILY 06/16 1055 AC 06/18 SC 0950 Hydromorphone HCl 1 MG Q6P PRN 06/15 1345 AC 06/18 IV 0958 Lactated Ringer's 1,000 ML Q8H 06/15 2300 AC 06/18 IV 0350 Lorazepam 0.25 MG ONCE ONE 06/17 1445 DC 06/17 IV 06/17 1446 1500 Magnesium Oxide 400 MG BID 06/18 1000 AC 06/18 PO 06/20 1000 0950 Magnesium Oxide 400 MG BID 06/17 1000 DC 06/17 PO 06/17 2201 2115 Metoprolol Succinate 100 MG DAILY 06/15 1622 AC 06/18 PO 0951 Morphine Sulfate 2 MG Q6-PRN PRN 06/15 1345 AC IV Ondansetron HCl 4 MG Q6P PRN 06/15 1415 AC 06/15 IV 2042 Pantoprazole Sodium 40 MG DAILY 06/15 1857 AC 06/18 IV 0951 Simethicone 80 MG Q4P PRN 06/17 2145 AC PO Simethicone 80 MG ONCE ONE 06/17 1445 DC 06/17 PO 06/17 1446 1540 Trazodone HCl 50 MG QPM 06/15 2200 AC 06/17 PO 2116 Trimethobenzamide HCl 200 MG Q6P PRN 06/16 2345 AC 06/16 IM 0834 Results Pertinent Lab Results: Laboratory Tests 06/18 06/17 0406 0505 Chemistry Sodium (137 - 145 mmol/L) 137 136 L Potassium (3.5 - 5.1 mmol/L) 4.1 3.9 Chloride (98 - 107 mmol/L) 100 101 Carbon Dioxide (22 - 30 mmol/L) 23 23 Anion Gap (5 - 16) 14 12 BUN (7 - 17 mg/dL) 4 L 5 L Creatinine (0.5 - 1.0 mg/dL) 0.5 0.5 Estimated GFR (>60 ml/min) > 60 > 60 Glucose (65 - 99 mg/dL) 87 84 Calcium (8.4 - 10.2 mg/dL) 8.8 8.8 Phosphorus (2.5 - 4.5 mg/dL) 4.1 4.2 Magnesium (1.6 - 2.3 mg/dL) 1.6 1.9 Total Bilirubin (0.2 - 1.3 mg/dL) 0.7 0.7 AST (14 - 36 U/L) 15 16 ALT (9 - 52 U/L) 36 37 Albumin (3.5 - 5.0 g/dL) 2.9 L 2.7 L Hematology CBC w Diff NO MAN DIFF REQ NO MAN DIFF REQ WBC (4.8 - 10.8 /CUMM) 6.9 7.8 RBC (4.20 - 5.40 /CUMM) 3.46 L 3.39 L Hgb (12.0 - 16.0 G/DL) 10.6 L 10.4 L Hct (37 - 47 %) 32.0 L 31.3 L MCV (81.0 - 99.0 FL) 92.3 92.3 MCH (27.0 - 31.0 PG) 30.6 30.7 RDW (11.5 - 14.5 %) 13.5 13.7 Plt Count (130 - 400 /CUMM) 257 268 MPV (7.4 - 10.4 FL) 8.1 7.8 Gran % (42.2 - 75.2 %) 71.5 69.7 Lymphocytes % (20.5 - 51.1 %) 12.9 L 15.3 L Monocytes % (1.7 - 9.3 %) 8.4 7.8 Eosinophils % (0 - 5 %) 6.8 H 6.7 H Basophils % (0.0 - 2.0 %) 0.4 0.5 Absolute Granulocytes (1.4 - 6.5 /CUMM) 4.9 5.5 Absolute Lymphocytes (1.2 - 3.4 /CUMM) 0.9 L 1.2 Absolute Monocytes (0.10 - 0.60 /CUMM) 0.6 0.6 Absolute Eosinophils (0.0 - 0.7 /CUMM) 0.5 0.5 Absolute Basophils (0.0 - 0.2 /CUMM) 0 0 PUBS MCHC (33.0 - 37.0 G/DL) 33.2 33.2 06/16 06/16 UNK 0440 Chemistry Sodium (137 - 145 mmol/L) Cancelled 138 Potassium (3.5 - 5.1 mmol/L) Cancelled 4.1 Chloride (98 - 107 mmol/L) Cancelled 103 Carbon Dioxide (22 - 30 mmol/L) Cancelled 24 Anion Gap (5 - 16) Cancelled 11 BUN (7 - 17 mg/dL) Cancelled 4 L Creatinine (0.5 - 1.0 mg/dL) Cancelled 0.5 Estimated GFR (>60 ml/min) > 60 BUN/Creatinine Ratio (7 - 25 %) 8.0 Glucose Cancelled Calcium Cancelled Phosphorus (2.5 - 4.5 mg/dL) Cancelled 3.8 Magnesium (1.6 - 2.3 mg/dL) Cancelled 1.5 L Total Bilirubin Cancelled AST Cancelled ALT Cancelled Albumin Cancelled Amylase (30 - 110 U/L) 738 H Lipase (23 - 300 U/L) 3650 H Hematology CBC w Diff NO MAN DIFF REQ WBC (4.8 - 10.8 /CUMM) 8.4 RBC (4.20 - 5.40 /CUMM) 3.49 L Hgb (12.0 - 16.0 G/DL) 10.7 L Hct (37 - 47 %) 32.1 L MCV (81.0 - 99.0 FL) 91.9 MCH (27.0 - 31.0 PG) 30.5 RDW (11.5 - 14.5 %) 13.9 Plt Count (130 - 400 /CUMM) 294 MPV (7.4 - 10.4 FL) 7.8 Gran % (42.2 - 75.2 %) 76.0 H Lymphocytes % (20.5 - 51.1 %) 13.8 L Monocytes % (1.7 - 9.3 %) 7.4 Eosinophils % (0 - 5 %) 2.5 Basophils % (0.0 - 2.0 %) 0.3 Absolute Granulocytes (1.4 - 6.5 /CUMM) 6.4 Absolute Lymphocytes (1.2 - 3.4 /CUMM) 1.2 Absolute Monocytes (0.10 - 0.60 /CUMM) 0.6 Absolute Eosinophils (0.0 - 0.7 /CUMM) 0.2 Absolute Basophils (0.0 - 0.2 /CUMM) 0 PUBS MCHC (33.0 - 37.0 G/DL) 33.2
[2017-06-18 16:00] VITALS: BP 136/86
--- NOTE | 2017-06-18 20:59 | Transfer of Care Summary ---
Hospital Course Course Hospital Course: Reason for ICU admission: Transferred to the ICU for close monitoring due to tachycardia and plueral effusions HPI: Ms. Kwok is a 47 yo F with a PMH of necrotic pancreatitis, obesity, hypertension, anxiety, DVT on the left LE, hyperlipidemia, recently hospitalized 3 weeks prior to this admission with acute pancreatitis in the setting of cholelithiasis, status post cholecystectomy during the admission and recently discharged from [place] from necrotic pancreatitis. She was admitted to [place] for pancreatitis with pancreatic necrosis without infection. She was transferred to the ICU for close monitoring due to tachycardia and trace pleural effusions. Interval events: In the ICU patient complained of abdominal tenderness that temporarily subsides with IV Dilaudid. Cardiology was consulted. An ECHO was perfomed to rule out SHD and/or valvular abnormalities for her pleural effusions. It demonstrated an EF of 65%, mild left atrial, trace mitral regurgitation enlargement, trace tricuspid regurgitation. Patient reported at the time of her ECHO she pulled some muscles by trying to guard her abdomen. She had no other complaints. She reports her abdominal pain and vomiting subsided but continues to have intermittent nausea. She is currently on Zofran. She was continued on Lactated Ringers. She tolerated a clear diet but was reluctant to have her diet advanced. Her labs showed elevated transaminases and elevated bilirubin not present on admission. GI was informed and an US RUQ was negative for biliary dilatation. An MRCP was done today that demonstrated 1.1 cm intra- and extra- hepatic biliary dilatation. GI was informed and recommended repeat labs in the morning. Mechanical ventilations: None NIPPV: None Antibiotics: None Cathethers/Lines: PIV Nutrition: Clear liquids DVT prophylaxis-ALPS Assessment/Plan: Ms. Kwok is a 47 yo F with a PMH of necrotic pancreatitis, obesity, hypertension, anxiety, DVT on the left LE, hyperlipidemia, recently hospitalized 3 weeks prior to this admission with acute pancreatitis in the setting of cholelithiasis, status post cholecystectomy during the admission and recently discharged from [place] for necrotic Pancreatitis. She was transferred to the ICU for close monitoring due to tachycardia and pleural effusions. Pancreatitis and Pancreatic necrosis without infection Lipase 4759. amylase 778. CT abd: area of walled off necrosis involving the pancreatic head and neck. Decreasing but persistent adjacent inflammatory changes.Trace bilateral pleural effusions with atelectasis, increased from prior. ECHO demonstrated an EF of 65% , mild left atrial, trace mitral regurgitation enlargement, trace tricuspid regurgitation. CXR demonstrated resolution of trace BL plueral effusions * Continue Lactated Ringer @ 75 cc/hr * Follow off antibiotics * Tigan/Zofran prn nausea, protonix prophylaxis * ID recommendations appreciated * GI recommendations appreciated Transaminitis and bilirubinemia AST 118. ALT 89. Direct bili 1.5 US RUQ was negative for biliary dilatation but positive for pseudocyst. MRCP demonstrated 1.1 cm intra- and extra- hepatic biliary dilatation. GI was informed and recommended repeat labs in the morning. * Serial Fractioned bilirubin, Alk Phos * Monitor liver function * Consider transfer to [place] for ERCP if patient symptoms worsens History of HTN * cont amlodpine and metoprolol History of Anxiety, Insomnia * cont Cymbalta, Klonopin, trazodone for sleep Diet: Clear liquid, advance as tolerated DVT prophylaxis: Lovenox Full code
[2017-06-19] VITALS: BP 112/80
[2017-06-19 05:36] LABS: ABSOLUTE BASOPHIL COUNT 0 /CUMM (0.0-0.2); ABSOLUTE EOSINOPHIL COUNT 0.4 /CUMM (0.0-0.7); ABSOLUTE GRANULOCYTE CT 4.9 /CUMM (1.4-6.5); ABSOLUTE MONOCYTE COUNT 0.7 /CUMM (0.10-0.60); BASOPHIL % 0.3 % (0.0-2.0); EOSINOPHIL % 6.1 % (0-5); GRANULOCYTE % 69.1 % (42.2-75.2); HEMATOCRIT 32.6 % (37-47); MEAN CORPUSCULAR HGB 30.2 PG (27.0-31.0); MEAN CORPUSCULAR HGB CONC 32.8 G/DL (33.0-37.0); MEAN CORPUSCULAR VOLUME 92.2 FL (81.0-99.0); MEAN PLATELET VOLUME 8.5 FL (7.4-10.4); PLATELET COUNT 299 /CUMM (130-400); RBC DISTRIBUTION WIDTH 13.9 % (11.5-14.5); RED BLOOD CELL CT 3.53 /CUMM (4.20-5.40); WHITE BLOOD CELL COUNT 7.1 /CUMM (4.8-10.8)
[2017-06-19 08:00] VITALS: BP 128/80
--- NOTE | 2017-06-19 08:44 | PN- Resident CRCU ---
See Addendum Subjective HPI/CRCU Issues: Pancreatitis Pancreatic tissue necrosis without infection Nausea/vomiting - resolved Transaminitis 24 Hour Events: No acute events overnight. Patient reports she tolerated the clear liquid diet well and would like to continue diet regimen Objective Vital Signs & I&O Last 8 Hrs of Vitals and I&O: Tmax: 97.8 BP:128-80 HR:94 Exam General Appearance: no apparent distress, awake, comfortable, obese Head: atraumatic, normal appearance Ears, Nose, Throat: normal pharynx, normal ENT inspection, hearing grossly normal Neck: normal inspection, supple, full range of motion Respiratory: normal breath sounds, no respiratory distress, lungs clear Cardiovascular: regular rate/rhythm Gastrointestinal: normal bowel sounds, soft, non-tender Extremities: normal inspection, normal range of motion, no edema Current Medications: Current Medications Sig/Anay Start time Last Medication Dose Route Stop Time Status Admin Acetaminophen 650 MG .STK-MED ONE 06/18 2147 DC PO 06/18 2148 Acetaminophen 650 MG .STK-MED ONE 06/18 1556 DC PO 06/18 1557 Acetaminophen 650 MG Q6P PRN 06/15 1345 AC 06/18 PO 2152 Amlodipine Besylate 10 MG DAILY 06/15 1620 AC 06/19 PO 1003 Clonazepam 1 MG BID PRN 06/15 1630 AC 06/17 PO 06/22 1629 1540 Duloxetine HCl 120 MG DAILY 06/16 1000 AC 06/19 PO 1002 Enoxaparin Sodium 40 MG DAILY 06/16 1055 AC 06/19 SC 1002 Hydromorphone HCl 1 MG Q6P PRN 06/15 1345 AC 06/19 IV 1139 Lactated Ringer's 1,000 ML Q8H 06/15 2300 AC 06/19 IV 0452 Magnesium Oxide 400 MG BID 06/18 1000 AC 06/19 PO 06/20 1000 1003 Metoprolol Succinate 100 MG DAILY 06/15 1622 AC 06/19 PO 1003 Morphine Sulfate 2 MG Q6-PRN PRN 06/15 1345 AC 06/19 IV 1004 Ondansetron HCl 4 MG Q6P PRN 06/15 1415 AC 06/15 IV 2042 Pantoprazole Sodium 40 MG DAILY 06/15 1857 AC 06/19 IV 1003 Simethicone 80 MG Q4P PRN 01/04 2145 AC PO Trazodone HCl 50 MG QPM 06/15 2200 AC 06/18 PO 2151 Trimethobenzamide HCl 200 MG Q6P PRN 06/16 2345 06/19 IM 0536 Impression/Plan Impression/Problem List Impression: 47 yo F with a history of necrotic pancreatitis, obesity, hypertension, anxiety, DVT on the left LE, hyperlipidemia, recently hospitalized 3 weeks prior to this admission with acute pancreatitis in the setting of cholelithiasis, status post cholecystectomy during the admission and recently discharged from [place] last week from necrotic pancreatitis presenting for pancreatitis. She was transferred to the ICU for close monitoring due to tachycardia and plueral effusions. She remains stable requiring no further intervention at this time Pancreatitis Lipase 4759. amylase 778. CT abd: area of walled off necrosis involving the pancreatic head and neck. Decreasing but persistent adjacent inflammatory changes.Trace bilateral pleural effusions with atelectasis, increased from prior. ECHO demonstrated an EF of 65% , mild left atrial, trace mitral regurgitation enlargement, trace tricuspid regurgitation. CXR demonstrated resolution of trace BL plueral effusions * Continue Lactated Ringer * Tigan/Zofran prn nausea, protonix prophylaxis * ID recommendations appreciated * GI recommendations appreciated Transaminitis * US RUQ to r/o biliary dilatation * Fractioned bilirubin * Monitor liver function * If patient worsen consider transfer to [place] for MRCP/ERCP History of HTN * cont amlodpine and metoprolol History of anxiety * cont Cymbalta, Klonopin, trazodone for sleep Diet: Clear liquid DVT prophylaxis: Lovenox Full code Problem List: 1. Acute gallstone pancreatitis 2. Nausea & vomiting Pain Ratin Pain Location: Diffused muscleache Tomorrow's Labs & Rationales: CBC, BUndle Plan DVT/Prophylaxis: pharmacological
--- NOTE | 2017-06-19 09:55 | PN- Gastroenterology ---
Assessment/Plan Assessment/Recommendations: Assessment: Ms. Kwok is a 47 year old female admitted with recurrent pancreatitis with necrosis who is currently doing well with conservative management and being observed off of antibiotics. She has been afebrile and without a high white count and her pain is improving. Her LFTs are moderately elevated this morning which raises the possibility of a retained stone especially considering she did not have an ERCP on her previous hospitalization as her LFTs had previously normalized. This would also potentially explain why she has had recurrent pancreatitis. Recommendations: 1. Continuecclear liquid diet as tolerated. 2. Check an US to look for evidence of biliary dilation and/or if LFTs continue to worsen will then check an MRCP if available 3. Follow daily LFTs and would fractionate bilirubin with next draw. 4. Analgesia as needed. 5. Continue to observe off of antibiotics 6. To consider repeat imaging only if pt spikes a temp or a white count. 7. Maintenance IV fluids. 8. D/C IV protonix 9. Notify GI if she develops signs of cholangitis in which case she will need to be transfered for an ERCP as those services are not available this week. I will continue to follow this patient and make further recommendations based on his clinical course. Problem List: 1. Pancreatitis 2. Nausea & vomiting 3. Acute gallstone pancreatitis Subjective Subjective: No significant complaints. Pain is improved. She is tolerating liquids without vomiting, but she wasn't able to toleate too much. Notes dark urine, but not recent bowel movement. Denies noticable jaundice. Objective Vital Signs and I&Os Vital Signs Date Time Temp Pulse Resp B/P B/P Pulse O2 O2 Flow FiO2 Mean Ox Delivery Rate 06/19 0800 97.1 94 18 128/80 95 Room Air 95% 06/19 0000 93 Room Air 06/19 0000 97.8 80 20 112/80 93 Room Air 06/18 1600 98.1 90 20 136/86 95 Room Air Room Air 06/18 0951 98.1 104 19 141/79 06/18 0950 98.1 104 19 141/79 Intake & Output 06/19 1600 06/19 0400 06/18 1600 06/18 0400 06/17 1600 06/17 0400 Intake Total 1000 0 2110 740 2226 2000 Output Total 1500 1100 600 875 300 Balance 2783 429 1671 140 1351 1700 Intake, IV 1000 2000 6793 370 9620 1999 Intake, Oral 50 150 30 50 Number 1 0 1 Bowel Movements Output, Urine 1500 1100 600 875 300 Patient 259 lb Weight Weight Bed scale Measurement Method Physical Exam General Appearance: well developed/nourished, no apparent distress, obese Head: atraumatic, normal appearance Ears, Nose, Throat: normal pharynx Neck: normal inspection, supple, full range of motion Respiratory: normal breath sounds, chest non-tender, no respiratory distress Cardiovascular: regular rate/rhythm Abdomen: normal bowel sounds, soft, non-tender Rectal: deferred Back: normal inspection Extremities: no edema Current Medications: Current Medications Sig/Anay Start time Last Medication Dose Route Stop Time Status Admin Acetaminophen 650 MG .STK-MED ONE 06/18 2146 DC PO 06/18 214 Acetaminophen 650 MG .STK-MED ONE 06/18 1556 DC PO 06/18 1557 Acetaminophen 650 MG Q6P PRN 06/15 1345 AC 06/18 PO 2152 Amlodipine Besylate 10 MG DAILY 06/15 1620 AC 06/18 PO 0950 Clonazepam 1 MG BID PRN 06/15 1630 AC 06/17 PO 06/22 1629 1540 Duloxetine HCl 120 MG DAILY 06/16 1000 AC 06/18 PO 0951 Enoxaparin Sodium 40 MG DAILY 06/16 1055 AC 06/18 SC 0950 Hydromorphone HCl 1 MG Q6P PRN 06/15 1345 AC 06/19 IV 0531 Lactated Ringer's 1,000 ML Q8H 06/15 2300 AC 06/19 IV 0452 Magnesium Oxide 400 MG BID 06/18 1000 AC 06/18 PO 06/20 1000 2151 Metoprolol Succinate 100 MG DAILY 06/15 1622 AC 06/18 PO 0951 Morphine Sulfate 2 MG Q6-PRN PRN 06/15 1345 AC IV Ondansetron HCl 4 MG Q6P PRN 06/15 1415 AC 06/15 IV 2042 Pantoprazole Sodium 40 MG DAILY 06/15 1857 AC 06/18 IV 0951 Simethicone 80 MG Q4P PRN 06/17 2145 AC PO Trazodone HCl 50 MG QPM 06/15 2200 AC 06/18 PO 2151 Trimethobenzamide HCl 200 MG Q6P PRN 06/16 2345 AC 06/19 IM 0536 Results Pertinent Lab Results: Laboratory Tests 06/23 06/22 0800 0717 Chemistry Sodium (137 - 145 mmol/L) 143 145 Potassium (3.5 - 5.1 mmol/L) 3.9 4.0 Chloride (98 - 107 mmol/L) 99 100 Carbon Dioxide (22 - 30 mmol/L) 26 29 Anion Gap (5 - 16) 18 H 16 BUN (7 - 17 mg/dL) 2 L 2 L Creatinine (0.5 - 1.0 mg/dL) 0.5 0.5 Estimated GFR (>60 ml/min) > 60 > 60 BUN/Creatinine Ratio (7 - 25 %) 4.0 L Glucose (65 - 99 mg/dL) 97 Calcium (8.4 - 10.2 mg/dL) 9.5 Phosphorus (2.5 - 4.5 mg/dL) 4.8 H Magnesium (1.6 - 2.3 mg/dL) 1.6 Total Bilirubin (0.2 - 1.3 mg/dL) 0.5 0.6 Direct Bilirubin (< 0.4 mg/dL) 0.4 0.4 AST (14 - 36 U/L) 52 H 55 H ALT (9 - 52 U/L) 88 H 90 H Alkaline Phosphatase (<127 U/L) 291 H 297 H Total Protein (6.3 - 8.2 g/dL) 5.8 L Albumin (3.5 - 5.0 g/dL) 3.1 L 3.0 L Amylase (30 - 110 U/L) 447 H Lipase (23 - 300 U/L) 4859 H Hematology CBC w Diff NO MAN DIFF REQ NO MAN DIFF REQ WBC (4.8 - 10.8 /CUMM) 4.9 4.8 RBC (4.20 - 5.40 /CUMM) 3.49 L 3.56 L Hgb (12.0 - 16.0 G/DL) 10.4 L 10.7 L Hct (37 - 47 %) 31.9 L 32.6 L MCV (81.0 - 99.0 FL) 91.3 91.6 MCH (27.0 - 31.0 PG) 29.8 30.0 RDW (11.5 - 14.5 %) 14.8 H 14.3 Plt Count (130 - 400 /CUMM) 371 316 MPV (7.4 - 10.4 FL) 8.0 8.6 Gran % (42.2 - 75.2 %) 58.6 63.4 Lymphocytes % (20.5 - 51.1 %) 25.8 16.4 L Monocytes % (1.7 - 9.3 %) 8.8 8.3 Eosinophils % (0 - 5 %) 6.1 H 10.0 H Basophils % (0.0 - 2.0 %) 0.7 1.9 Absolute Granulocytes (1.4 - 6.5 /CUMM) 2.9 3.0 Absolute Lymphocytes (1.2 - 3.4 /CUMM) 1.3 0.8 L Absolute Monocytes (0.10 - 0.60 /CUMM) 0.4 0.4 Absolute Eosinophils (0.0 - 0.7 /CUMM) 0.3 0.5 Absolute Basophils (0.0 - 0.2 /CUMM) 0 0.1 PUBS MCHC (33.0 - 37.0 G/DL) 32.7 L 32.8 L 06/21 0730 Chemistry Sodium (137 - 145 mmol/L) 143 Potassium (3.5 - 5.1 mmol/L) 4.2 Chloride (98 - 107 mmol/L) 98 Carbon Dioxide (22 - 30 mmol/L) 30 Anion Gap (5 - 16) 15 BUN (7 - 17 mg/dL) 2 L Creatinine (0.5 - 1.0 mg/dL) 0.5 Estimated GFR (>60 ml/min) > 60 Glucose (65 - 99 mg/dL) 98 Calcium (8.4 - 10.2 mg/dL) 9.5 Phosphorus (2.5 - 4.5 mg/dL) 4.5 Magnesium (1.6 - 2.3 mg/dL) 1.7 Total Bilirubin (0.2 - 1.3 mg/dL) 0.9 Direct Bilirubin (< 0.4 mg/dL) 0.6 H AST (14 - 36 U/L) 100 H ALT (9 - 52 U/L) 118 H Alkaline Phosphatase (<127 U/L) 381 H Total Protein (6.3 - 8.2 g/dL) 5.8 L Albumin (3.5 - 5.0 g/dL) 3.1 L Hematology CBC w Diff NO MAN DIFF REQ WBC (4.8 - 10.8 /CUMM) 5.9 RBC (4.20 - 5.40 /CUMM) 3.77 L Hgb (12.0 - 16.0 G/DL) 11.4 L Hct (37 - 47 %) 34.8 L MCV (81.0 - 99.0 FL) 92.2 MCH (27.0 - 31.0 PG) 30.1 RDW (11.5 - 14.5 %) 14.2 Plt Count (130 - 400 /CUMM) 308 MPV (7.4 - 10.4 FL) 8.3 Gran % (42.2 - 75.2 %) 66.0 Lymphocytes % (20.5 - 51.1 %) 16.5 L Monocytes % (1.7 - 9.3 %) 9.4 H Eosinophils % (0 - 5 %) 7.7 H Basophils % (0.0 - 2.0 %) 0.4 Absolute Granulocytes (1.4 - 6.5 /CUMM) 3.9 Absolute Lymphocytes (1.2 - 3.4 /CUMM) 1.0 L Absolute Monocytes (0.10 - 0.60 /CUMM) 0.6 Absolute Eosinophils (0.0 - 0.7 /CUMM) 0.5 Absolute Basophils (0.0 - 0.2 /CUMM) 0 PUBS MCHC (33.0 - 37.0 G/DL) 32.7 L
[2017-06-19 16:00] VITALS: BP 110/80
--- NOTE | 2017-06-19 18:02 | ULTRASOUND REPORT ---
EXAMINATION: US ABDOMEN COMPLETE CLINICAL INFORMATION: Pancreatitis. Increasing bilirubin. Rule out biliary ductal dilatation. COMPARISON: CT abdomen pelvis 06/15/2017 TECHNIQUE: Real-time imaging of the abdominal viscera. FINDINGS: PANCREAS: The pancreas is not well seen, largely obscured by bowel gas. Ill-defined hypoechogenicity within the region of the pancreatic head is consistent with the fluid density abnormality on prior CT scan. ABDOMINAL AORTA: The proximal segment is normal in caliber. INFERIOR VENA CAVA: Visualized portions are normal. LIVER: Hepatomegaly. Liver is diffusely echogenic and sound attenuating consistent with diffuse hepatic steatosis. No focal liver lesion seen. No biliary ductal dilatation. GALLBLADDER: Status post cholecystectomy. COMMON BILE DUCT: Normal in caliber measuring 0.5 cm in diameter. RIGHT KIDNEY: Normal. No hydronephrosis. No renal calculi or focal parenchymal lesions. The kidney measures 9.8 cm in maximum dimension. LEFT KIDNEY: The cyst seen on the prior CT scan was not seen by ultrasound. No hydronephrosis. No renal calculi or focal parenchymal lesions. The kidney measures 10.5 cm in maximum dimension. SPLEEN: Normal. The spleen measures 11.9 cm in maximum dimension. FREE FLUID: None. IMPRESSION: The liver is diffusely echogenic and sound attenuating consistent with diffuse hepatic steatosis. There is hepatomegaly as well. No biliary ductal dilatation however. Status post cholecystectomy. Ill-defined hypoechogenicity in the region of the pancreatic head is consistent with the previously seen pancreatic fluid collection. If the patient has had pancreatitis for 4+ weeks, this would be a pseudocyst.
[2017-06-19 23:00] VITALS: BP 140/80
[2017-06-20 05:09] LABS: ABSOLUTE BASOPHIL COUNT 0 /CUMM (0.0-0.2); ABSOLUTE EOSINOPHIL COUNT 0.4 /CUMM (0.0-0.7); ABSOLUTE GRANULOCYTE CT 5.2 /CUMM (1.4-6.5); ABSOLUTE LYMPH COUNT 0.8 /CUMM (1.2-3.4); ABSOLUTE MONOCYTE COUNT 0.8 /CUMM (0.10-0.60); BASOPHIL % 0.3 % (0.0-2.0); EOSINOPHIL % 5.8 % (0-5); GRANULOCYTE % 72.1 % (42.2-75.2); HEMATOCRIT 31.4 % (37-47); MEAN CORPUSCULAR HGB 30.2 PG (27.0-31.0); MEAN CORPUSCULAR HGB CONC 32.9 G/DL (33.0-37.0); MEAN CORPUSCULAR VOLUME 91.8 FL (81.0-99.0); MEAN PLATELET VOLUME 8.1 FL (7.4-10.4); PLATELET COUNT 285 /CUMM (130-400); RBC DISTRIBUTION WIDTH 13.8 % (11.5-14.5); RED BLOOD CELL CT 3.41 /CUMM (4.20-5.40); WHITE BLOOD CELL COUNT 7.2 /CUMM (4.8-10.8)
[2017-06-20 08:00] VITALS: BP 132/82
--- NOTE | 2017-06-20 08:48 | PN- Infect Dx ---
Subjective Subjective: Afebrile. She feels improved with decreased abdominal pain. She does note occasional nausea with no vomiting. She also reports back pain. She denies any shortness of breath. Objective Last 24 Hrs of Vital Signs/I&O Vital Signs Date Time Temp Pulse Resp B/P B/P Pulse O2 O2 Flow FiO2 Mean Ox Delivery Rate 06/20 799 97.8 95 20 132/82 95 Room Air 06/19 2300 97.6 99 12 140/80 95 Room Air 06/19 1600 98.2 94 18 110/80 95 Room Air 06/19 1003 94 128/80 06/19 1003 94 128/80 Intake & Output 06/20 1600 06/20 0800 06/20 0000 Intake Total 1240 1240 Output Total 600 Balance 1240 640 Intake, IV 1000 1000 Intake, Oral 240 240 Number 0 Bowel Movements Output, Urine 600 Physical Exam Other Physical Findings: She appears comfortable in no acute distress Lungs are clear Heart regular rhythm with no murmur Abdomen is soft, obese, nontender with positive bowel sounds Extremities no cyanosis, clubbing or edema Results Last 24 Hours of Lab Results: Laboratory Tests 06/20 0436 Chemistry Sodium (137 - 145 mmol/L) 136 L Potassium (3.5 - 5.1 mmol/L) 3.8 Chloride (98 - 107 mmol/L) 99 Carbon Dioxide (22 - 30 mmol/L) 23 Anion Gap (5 - 16) 14 BUN (7 - 17 mg/dL) 2 L Creatinine (0.5 - 1.0 mg/dL) 0.5 Estimated GFR (>60 ml/min) > 60 Glucose (65 - 99 mg/dL) 111 H Calcium (8.4 - 10.2 mg/dL) 9.4 Phosphorus (2.5 - 4.5 mg/dL) 4.7 H Magnesium (1.6 - 2.3 mg/dL) 1.4 L Total Bilirubin (0.2 - 1.3 mg/dL) 1.9 H Direct Bilirubin (< 0.4 mg/dL) 1.3 H AST (14 - 36 U/L) 115 H ALT (9 - 52 U/L) 112 H Alkaline Phosphatase (<127 U/L) 315 H Albumin (3.5 - 5.0 g/dL) 3.0 L Hematology CBC w Diff NO MAN DIFF REQ WBC (4.8 - 10.8 /CUMM) 7.2 RBC (4.20 - 5.40 /CUMM) 3.41 L Hgb (12.0 - 16.0 G/DL) 10.3 L Hct (37 - 47 %) 31.4 L MCV (81.0 - 99.0 FL) 91.8 MCH (27.0 - 31.0 PG) 30.2 RDW (11.5 - 14.5 %) 13.8 Plt Count (130 - 400 /CUMM) 285 MPV (7.4 - 10.4 FL) 8.1 Gran % (42.2 - 75.2 %) 72.1 Lymphocytes % (20.5 - 51.1 %) 10.9 L Monocytes % (1.7 - 9.3 %) 10.9 H Eosinophils % (0 - 5 %) 5.8 H Basophils % (0.0 - 2.0 %) 0.3 Absolute Granulocytes (1.4 - 6.5 /CUMM) 5.2 Absolute Lymphocytes (1.2 - 3.4 /CUMM) 0.8 L Absolute Monocytes (0.10 - 0.60 /CUMM) 0.8 H Absolute Eosinophils (0.0 - 0.7 /CUMM) 0.4 Absolute Basophils (0.0 - 0.2 /CUMM) 0 PUBS MCHC (33.0 - 37.0 G/DL) 32.9 L Last 24 Hours of Dangelo Results: No new cultures Recent Imaging Studies: Abdominal ultrasound June 19 reveals no biliary ductal dilatation; ill-defined hypoechogenicity in the region of the pancreatic head is again seen Assessment/Plan Impression: Recurrent pancreatitis, possibly secondary to choledocholithiasis, though she had no biliary dilatation on the recent ultrasound. Her CT scan revealed necrosis in the head and neck of the pancreas, not significantly changed from the previous CT scan, but her temperatures and white blood cell count remain normal off antibiotics, making it less likely that she has a secondary infection. Suggestion: 1. Would pursue an MRCP 2. Further management of her pancreatitis per GI 3. Continue to follow off antibiotics
--- NOTE | 2017-06-20 09:02 | PN- Resident CRCU ---
Iam Miller 06/20/17 0901: Subjective HPI/CRCU Issues: Pancreatitis Pancreatic tissue necrosis without infection Nausea/vomiting - resolved Transaminitis 24 Hour Events: Patient was seen and examined. She started to have back pain this morning. Had abdominal pain is improved. Denies nausea or vomiting. She reports having good appetite and good like her diet to be advanced. Denies, dizziness, lightheadedness, chest pain, shortness of breath, urinary symptoms. Vital signs stable. No events reported. Objective Vital Signs & I&O Last 8 Hrs of Vitals and I&O: Intake & Output 06/20 1600 06/20 0800 06/20 0000 Intake Total 1240 1240 Output Total 600 Balance 1240 640 Intake, IV 1000 1000 Intake, Oral 240 240 Number 0 Bowel Movements Output, Urine 600 Vital Signs Date Time Temp Pulse Resp B/P B/P Pulse O2 O2 Flow FiO2 Mean Ox Delivery Rate 06/20 1003 95 132/82 06/20 1003 95 132/82 06/20 0800 97.8 95 20 132/82 95 Room Air 06/19 2300 97.6 99 12 140/80 95 Room Air 06/19 1600 98.2 94 18 110/80 95 Room Air Exam General Appearance: no apparent distress, alert, awake Head: atraumatic, normal appearance Neck: supple Respiratory: normal breath sounds, chest non-tender Cardiovascular: regular rate/rhythm Gastrointestinal: normal bowel sounds, soft, no organomegaly, Mild epigastric tenderness noted Extremities: normal inspection, no edema Skin: intact Current Medications: Current Medications Sig/Anay Start time Last Medication Dose Route Stop Time Status Admin Acetaminophen 650 MG Q6P PRN 06/15 1345 AC 06/18 PO 2152 Amlodipine Besylate 10 MG DAILY 06/15 1620 AC 06/20 PO 1003 Clonazepam 1 MG BID PRN 06/15 1630 AC 06/17 PO 06/22 1629 1540 Docusate Sodium 100 MG DAILY 06/20 1105 AC PO Duloxetine HCl 120 MG DAILY 06/16 1000 AC 06/20 PO 1002 Enoxaparin Sodium 40 MG DAILY 06/16 1055 AC 06/20 SC 1003 Hydromorphone HCl 1 MG Q6P PRN 06/15 1345 AC 06/20 IV 1100 Lactated Ringer's 1,000 ML Q8H 06/15 2300 AC 06/20 IV 0359 Lidocaine 1 PAT DAILY NEEDED PRN 06/20 1115 AC EXT Magnesium Oxide 400 MG BID 06/18 1000 DC 06/20 PO 06/20 1000 1003 Magnesium Sulfate 1 GM ONCE ONE 06/20 0930 AC 06/20 Dextrose/Water 100 ML IV 06/20 1329 1000 Metoprolol Succinate 100 MG DAILY 06/15 1622 AC 06/20 PO 1003 Morphine Sulfate 2 MG Q6-PRN PRN 06/15 1345 AC 06/20 IV 1014 Ondansetron HCl 4 MG Q6P PRN 06/15 1415 AC 06/15 IV 2042 Polyethylene Glycol 17 GM DAILY NEEDED PRN 06/20 1115 AC PO Senna 187 MG AT BEDTIME 06/20 2200 AC PO Simethicone 80 MG Q4P PRN 06/17 2145 AC PO Trazodone HCl 50 MG QPM 06/15 2200 AC 06/19 PO 2143 Trimethobenzamide HCl 200 MG Q6P PRN 06/16 2345 AC 06/19 IM 0536 Impression/Plan Impression/Problem List Impression: This is a 47 yo F with a history of necrotic pancreatitis, obesity, hypertension , anxiety, DVT on the left LE, hyperlipidemia, recently hospitalized 3 weeks prior to this admission with acute pancreatitis in the setting of cholelithiasis , status post cholecystectomy during the admission. She was recently discharged from [facility] 1 week prior to admission for same complaint. She was transferred to the ICU for close monitoring due to tachycardia and plueral effusions. 47 yo F with a history of necrotic pancreatitis, obesity, hypertension, anxiety, DVT on the left LE, hyperlipidemia, recently hospitalized 3 weeks prior to this admission with acute pancreatitis in the setting of cholelithiasis, status post cholecystectomy during the admission and recently discharged from [facility] last week from necrotic pancreatitis presenting for pancreatitis. She was transferred to the ICU for close monitoring due to tachycardia and plueral effusions. She remains stable requiring no further intervention at this time #Pancreatitis: -Admission Lipase 4759. amylase 778. -CT abd: area of walled off necrosis involving the pancreatic head and neck. Decreasing but persistent adjacent inflammatory changes.Trace bilateral pleural effusions with atelectasis, increased from prior. -ECHO demonstrated an EF of 65%, mild left atrial, trace mitral regurgitation enlargement, trace tricuspid regurgitation. CXR demonstrated resolution of trace BL plueral effusions * Continue Lactated Ringer * Tigan/Zofran prn nausea, protonix prophylaxis * ID recommendations appreciated * GI recommendations appreciated #Constipation: * Has not had a bowel movement for the past 2 days, she is asking for Colace and senna. #Back pain: * Has chronic back pain which worsened after being moved today. * States that her IV pain medications manage her back pain with however they do not last long. * Given her elevated liver enzymes acetaminophen and NSAIDs should be avoided. * Will add Lidoderm patch to her pain medication regimen for back pain. Will monitor closely if no improvement will consider other options. #Transaminitis: * US RUQ on 06/19/2016, does not reveal any biliary ductal dilatation, however reveals findings suggestive of diffuse hepatic steatosis and pancreatic fluid collection. * Directed bilirubin today 1.3. * Monitor liver function: AST 115, ALT 112, alkaline phosphatase 315 * If patient worsen consider transfer to [place] for MRCP/ERCP #History of HTN: * Continue with amlodpine and metoprolol #History of anxiety: * Continue with Cymbalta, Klonopin, trazodone for sleep #Diet: Advance to full liquid diet. #DVT prophylaxis: Lovenox #CODE STATUS: Full code Problem List: 1. Pancreatitis Pain Ratin Pain Location: Abdomen, back Tomorrow's Labs & Rationales: CBC to monitor H&H BEP to monitor electrolytes Plan DVT/Prophylaxis: pharmacological Bert Monge 06/20/17 1028: Attending MD Review Statement Attending Sign Off Attending Cosign Statement: I have: examined this patient, reviewed [facility] EMR data, personally reviewd images, discussd w/resident/PA/MASTIC SPRAYER, discussed mgmt plan w/aiden, discussed mgmt plan w/CM. Other Findings: 47 o/f with acute pancreatitis recently transferred to [place] for possible aspiration of pancreatic wall on CT but managed conservatively and discharged to home, however patient symptoms did not improve with persistent nasuea so she decided to come to ER. Labs with stabilisation of LFTs Patient seen/examined bedside. Patient denies any new complaints. She is taking pain meds. She is having good urine output. Her epigastric tenderness+. Her AST/ ALTs increased and bili is elevtaed but stable today. GI and ID consulted for pancreatic necrosis. c/w pain control, prn nausea meds, IVF as per GI. Diet/Nutrition plan as per GI. c/w clear liquid today maybe advance to full liquid and assess clinically. Abx (monitor off) as per ID. RUQ USG with no ductal dilation as per GI. avoid medications which can cause pancreatitis. gi/dvt prophyalxis full code. Plan of care d.wed patient bedside. Follow her clinically and can be transferred out of ICU if not persistent tachycardia.
--- NOTE | 2017-06-20 12:17 | PN- Gastroenterology ---
Assessment/Plan Assessment/Recommendations: Assessment: Ms. Kwok is a 47 year old female admitted with recurrent pancreatitis with necrosis who is currently doing well with conservative management and being observed off of antibiotics. She has been afebrile and without a high white count and her pain is improving. Her LFTs were noted to be moderately elevated yesterday and they have remained so today, but aren't significantly increased and an US yesterday was negative for biliary dilation. She does appear to be developing a pseudocyst which could potentially account for the increased LFTs, but if this was the case I would expect her to have some degree of biliary dilation which she doesn't have. It would also be a bit unusual for a pseudocyst to cause an abrupt increase in her LFTs so I continue to think that she has a retained CBD stone. She has continued to improve from a pancreatitis standpoint and she is without cholangitis so determining if she has a CBD stone and removing one if she does isn't urgent, but I feel that further imaging is necessary to 'clear' the CBD and if her LFTs remain elevated without an obvious CBD stone on a repeat MRCP consideration should be given to transfer her for an EUS and/or ERCP if that is positive for a CBD stone. Recommendations: 1. Advance diet as tolerated 2. Follow daily LFTs and if similarly elevated in the am would check an MRCP or if markedly elevated bilirubin (> 4) would then consider transfer for ERCP without further imaging. 3. Analgesia as needed. 4. Continue to observe off of antibiotics 5. Maintenance IV fluids. 8. D/C IV protonix 9. Notify GI if she develops signs of cholangitis in which case she will need to be transfered for an urgent ERCP as those services are not available this week. I will continue to follow this patient and make further recommendations based on his clinical course and results of repeat blood work and imaging. Subjective Subjective: Pt is feeling well. She is tolerating soup ('the best soup she's ever had'), denies significant pain or vomiting. No fevers or noticable jaundice; if a transfer is necessary she is requesting it be to [place] rather then [place]. Objective Vital Signs and I&Os Vital Signs Date Time Temp Pulse Resp B/P B/P Pulse O2 O2 Flow FiO2 Mean Ox Delivery Rate 06/20 1003 95 132/82 06/20 1003 95 132/82 06/20 0800 97.8 95 20 132/82 95 Room Air 06/19 2300 97.6 99 12 140/80 95 Room Air 06/19 1600 98.2 94 18 110/80 95 Room Air Intake & Output 06/20 1600 06/20 0400 06/19 1600 06/19 0400 06/18 1600 06/18 0400 Intake Total 1240 1240 2180 2050 2110 740 Output Total 600 1200 1500 1100 600 Balance 1240 640 076 639 0502 140 Intake, IV 1000 1000 1980 2000 1960 710 Intake, Oral 240 240 200 50 150 30 Number 0 0 1 0 Bowel Movements Output, Urine 600 1200 1500 1100 600 Physical Exam General Appearance: well developed/nourished, no apparent distress, alert, comfortable, obese Head: atraumatic, normal appearance Neck: normal inspection, supple, full range of motion Respiratory: normal breath sounds, chest non-tender, no respiratory distress Cardiovascular: regular rate/rhythm Abdomen: normal bowel sounds, soft, non-tender Rectal: deferred Extremities: normal inspection, no edema Current Medications: Current Medications Sig/Anay Start time Last Medication Dose Route Stop Time Status Admin Acetaminophen 650 MG Q6P PRN 06/15 1345 AC 06/18 PO 2152 Amlodipine Besylate 10 MG DAILY 06/15 1620 AC 06/20 PO 1003 Clonazepam 1 MG BID PRN 06/15 1630 AC 06/17 PO 06/22 1629 1540 Docusate Sodium 100 MG DAILY 06/20 1105 AC PO Duloxetine HCl 120 MG DAILY 06/16 1000 AC 06/20 PO 1002 Enoxaparin Sodium 40 MG DAILY 06/16 1055 AC 06/20 SC 1003 Hydromorphone HCl 1 MG Q6P PRN 06/15 1345 AC 06/20 IV 1100 Lactated Ringer's 1,000 ML Q8H 06/15 2300 AC 06/20 IV 0359 Lidocaine 1 PAT DAILY NEEDED PRN 06/20 1115 AC EXT Magnesium Oxide 400 MG BID 06/18 1000 DC 06/20 PO 06/20 1000 1003 Magnesium Sulfate 1 GM ONCE ONE 06/20 0930 AC 06/20 Dextrose/Water 100 ML IV 06/20 1329 1000 Metoprolol Succinate 100 MG DAILY 06/15 1622 AC 06/20 PO 1003 Morphine Sulfate 2 MG Q6-PRN PRN 06/15 1345 AC 06/20 IV 1014 Ondansetron HCl 4 MG Q6P PRN 06/15 1415 AC 06/15 IV 2042 Pantoprazole Sodium 40 MG DAILY 06/15 1857 DC 06/19 IV 1003 Polyethylene Glycol 17 GM DAILY NEEDED PRN 06/20 1115 AC PO Senna 187 MG AT BEDTIME 06/20 2200 AC PO Simethicone 80 MG Q4P PRN 06/17 2145 AC PO Trazodone HCl 50 MG QPM 06/15 2200 AC 06/19 PO 2143 Trimethobenzamide HCl 200 MG Q6P PRN 06/16 2345 AC 06/19 IM 0536 Results Pertinent Lab Results: Laboratory Tests 06/20 06/19 0436 0344 Chemistry Sodium (137 - 145 mmol/L) 136 L 138 Potassium (3.5 - 5.1 mmol/L) 3.8 4.1 Chloride (98 - 107 mmol/L) 99 99 Carbon Dioxide (22 - 30 mmol/L) 23 23 Anion Gap (5 - 16) 14 15 BUN (7 - 17 mg/dL) 2 L 2 L Creatinine (0.5 - 1.0 mg/dL) 0.5 0.5 Estimated GFR (>60 ml/min) > 60 > 60 Glucose (65 - 99 mg/dL) 111 H 93 Calcium (8.4 - 10.2 mg/dL) 9.4 9.1 Phosphorus (2.5 - 4.5 mg/dL) 4.7 H 4.6 H Magnesium (1.6 - 2.3 mg/dL) 1.4 L 1.5 L Total Bilirubin (0.2 - 1.3 mg/dL) 1.9 H 2.3 H Direct Bilirubin (< 0.4 mg/dL) 1.3 H 1.5 H AST (14 - 36 U/L) 115 H 118 H ALT (9 - 52 U/L) 112 H 89 H Alkaline Phosphatase (<127 U/L) 315 H 283 H Albumin (3.5 - 5.0 g/dL) 3.0 L 3.0 L Hematology CBC w Diff NO MAN DIFF REQ NO MAN DIFF REQ WBC (4.8 - 10.8 /CUMM) 7.2 7.1 RBC (4.20 - 5.40 /CUMM) 3.41 L 3.53 L Hgb (12.0 - 16.0 G/DL) 10.3 L 10.7 L Hct (37 - 47 %) 31.4 L 32.6 L MCV (81.0 - 99.0 FL) 91.8 92.2 MCH (27.0 - 31.0 PG) 30.2 30.2 RDW (11.5 - 14.5 %) 13.8 13.9 Plt Count (130 - 400 /CUMM) 285 299 MPV (7.4 - 10.4 FL) 8.1 8.5 Gran % (42.2 - 75.2 %) 72.1 69.1 Lymphocytes % (20.5 - 51.1 %) 10.9 L 13.9 L Monocytes % (1.7 - 9.3 %) 10.9 H 10.6 H Eosinophils % (0 - 5 %) 5.8 H 6.1 H Basophils % (0.0 - 2.0 %) 0.3 0.3 Absolute Granulocytes (1.4 - 6.5 /CUMM) 5.2 4.9 Absolute Lymphocytes (1.2 - 3.4 /CUMM) 0.8 L 1.0 L Absolute Monocytes (0.10 - 0.60 /CUMM) 0.8 H 0.7 H Absolute Eosinophils (0.0 - 0.7 /CUMM) 0.4 0.4 Absolute Basophils (0.0 - 0.2 /CUMM) 0 0 PUBS MCHC (33.0 - 37.0 G/DL) 32.9 L 32.8 L 06/18 0406 Chemistry Sodium (137 - 145 mmol/L) 137 Potassium (3.5 - 5.1 mmol/L) 4.1 Chloride (98 - 107 mmol/L) 100 Carbon Dioxide (22 - 30 mmol/L) 23 Anion Gap (5 - 16) 14 BUN (7 - 17 mg/dL) 4 L Creatinine (0.5 - 1.0 mg/dL) 0.5 Estimated GFR (>60 ml/min) > 60 Glucose (65 - 99 mg/dL) 87 Calcium (8.4 - 10.2 mg/dL) 8.8 Phosphorus (2.5 - 4.5 mg/dL) 4.1 Magnesium (1.6 - 2.3 mg/dL) 1.6 Total Bilirubin (0.2 - 1.3 mg/dL) 0.7 AST (14 - 36 U/L) 15 ALT (9 - 52 U/L) 36 Albumin (3.5 - 5.0 g/dL) 2.9 L Hematology CBC w Diff NO MAN DIFF REQ WBC (4.8 - 10.8 /CUMM) 6.9 RBC (4.20 - 5.40 /CUMM) 3.46 L Hgb (12.0 - 16.0 G/DL) 10.6 L Hct (37 - 47 %) 32.0 L MCV (81.0 - 99.0 FL) 92.3 MCH (27.0 - 31.0 PG) 30.6 RDW (11.5 - 14.5 %) 13.5 Plt Count (130 - 400 /CUMM) 257 MPV (7.4 - 10.4 FL) 8.1 Gran % (42.2 - 75.2 %) 71.5 Lymphocytes % (20.5 - 51.1 %) 12.9 L Monocytes % (1.7 - 9.3 %) 8.4 Eosinophils % (0 - 5 %) 6.8 H Basophils % (0.0 - 2.0 %) 0.4 Absolute Granulocytes (1.4 - 6.5 /CUMM) 4.9 Absolute Lymphocytes (1.2 - 3.4 /CUMM) 0.9 L Absolute Monocytes (0.10 - 0.60 /CUMM) 0.6 Absolute Eosinophils (0.0 - 0.7 /CUMM) 0.5 Absolute Basophils (0.0 - 0.2 /CUMM) 0 PUBS MCHC (33.0 - 37.0 G/DL) 33.2 Imaging/Other Studies: SERVICE DATE: 06/19/17- EXAM TYPE: US - US-COMPLETE ABDOMEN EXAMINATION: US ABDOMEN COMPLETE CLINICAL INFORMATION: Pancreatitis. Increasing bilirubin. Rule out biliary ductal dilatation. COMPARISON: CT abdomen pelvis 06/15/2017 TECHNIQUE: Real-time imaging of the abdominal viscera. FINDINGS: PANCREAS: The pancreas is not well seen, largely obscured by bowel gas. Ill-defined hypoechogenicity within the region of the pancreatic head is consistent with the fluid density abnormality on prior CT scan. ABDOMINAL AORTA: The proximal segment is normal in caliber. INFERIOR VENA CAVA: Visualized portions are normal. LIVER: Hepatomegaly. Liver is diffusely echogenic and sound attenuating consistent with diffuse hepatic steatosis. No focal liver lesion seen. No biliary ductal dilatation. GALLBLADDER: Status post cholecystectomy. COMMON BILE DUCT: Normal in caliber measuring 0.5 cm in diameter. RIGHT KIDNEY: Normal. No hydronephrosis. No renal calculi or focal parenchymal lesions. The kidney measures 9.8 cm in maximum dimension. LEFT KIDNEY: The cyst seen on the prior CT scan was not seen by ultrasound. No hydronephrosis. No renal calculi or focal parenchymal lesions. The kidney measures 10.5 cm in maximum dimension. SPLEEN: Normal. The spleen measures 11.9 cm in maximum dimension. FREE FLUID: None. IMPRESSION: The liver is diffusely echogenic and sound attenuating consistent with diffuse hepatic steatosis. There is hepatomegaly as well. No biliary ductal dilatation however. Status post cholecystectomy. Ill-defined hypoechogenicity in the region of the pancreatic head is consistent with the previously seen pancreatic fluid collection. If the patient has had pancreatitis for 4+ weeks, this would be a pseudocyst.
[2017-06-20 16:00] VITALS: BP 108/78
[2017-06-21 02:39] VITALS: BP 126/70
--- NOTE | 2017-06-21 07:34 | PN- Resident CRCU ---
Leyla Zungia 06/21/17 0733: Subjective HPI/CRCU Issues: Pancreatitis Pancreatic tissue necrosis without infection Nausea/vomiting - resolved Transaminitis 24 Hour Events: Patient has no complaints. No acute events overnight Objective Vital Signs & I&O Last 8 Hrs of Vitals and I&O: Intake & Output 06/21 1600 Intake Total 1000 Output Total 800 Balance 200 Intake, IV 600 Intake, Oral 400 Number 1 Bowel Movements Output, Urine 800 Exam General Appearance: well developed/nourished, no apparent distress, alert, awake , comfortable Head: atraumatic, normal appearance Ears, Nose, Throat: normal pharynx, normal ENT inspection, hearing grossly normal Neck: normal inspection, supple, full range of motion Respiratory: normal breath sounds, chest non-tender, no respiratory distress Cardiovascular: regular rate/rhythm Gastrointestinal: normal bowel sounds, soft, tenderness Extremities: L>>R edema Current Medications: Current Medications Sig/Anay Start time Last Medication Dose Route Stop Time Status Admin Acetaminophen 650 MG Q6P PRN 06/15 1345 AC 06/18 PO 2152 Amlodipine Besylate 10 MG DAILY 06/15 1620 AC 06/21 PO 0940 Clonazepam 1 MG BID PRN 06/15 1630 AC 06/17 PO 06/22 1629 1540 Docusate Sodium 100 MG DAILY 06/20 1105 AC 06/21 PO 0940 Duloxetine HCl 120 MG DAILY 06/16 1000 AC 06/21 PO 0940 Enoxaparin Sodium 40 MG DAILY 06/16 1055 AC 06/21 SC 0940 Hydromorphone HCl 1 MG Q6P PRN 06/15 1345 AC 06/21 IV 0823 Lactated Ringer's 1,000 ML Q8H 06/15 2300 AC 06/21 IV 0817 Lidocaine 1 PAT DAILY NEEDED PRN 06/20 1115 AC 06/20 EXT 1215 Metoprolol Succinate 100 MG DAILY 06/15 1622 AC 06/21 PO 0940 Morphine Sulfate 2 MG Q6-PRN PRN 06/15 1345 AC 06/21 IV 1616 Ondansetron HCl 4 MG Q6P PRN 06/15 1415 AC 06/15 IV 2042 Polyethylene Glycol 17 GM DAILY NEEDED PRN 06/20 1115 AC PO Senna 187 MG AT BEDTIME 06/20 2200 AC 06/20 PO 2139 Simethicone 80 MG Q4P PRN 06/17 2145 AC PO Trazodone HCl 50 MG QPM 06/15 2200 AC 06/20 PO 2140 Trimethobenzamide HCl 200 MG Q6P PRN 06/16 2345 AC 06/21 IM 1616 Impression/Plan Impression/Problem List Impression: Ms. Kwok is a 47 yo F with a history of necrotic pancreatitis, obesity, hypertension, anxiety, DVT on the left LE, hyperlipidemia, recently hospitalized 3 weeks prior to this admission with acute pancreatitis in the setting of cholelithiasis, status post cholecystectomy during the admission and recently discharged from [facility] for necrotic pancreatitis presenting for pancreatitis. She was transferred to the ICU for close monitoring due to tachycardia and pleural effusions. Pancreatitis Lipase 4759. amylase 778. CT abd: area of walled off necrosis involving the pancreatic head and neck. Decreasing but persistent adjacent inflammatory changes.Trace bilateral pleural effusions with atelectasis, increased from prior. ECHO demonstrated an EF of 65% , mild left atrial, trace mitral regurgitation enlargement, trace tricuspid regurgitation. CXR demonstrated resolution of trace BL plueral effusions * Continue Lactated Ringer, decrease to 75cc/h to avoid fluid overload * Tigan/Zofran prn nausea, protonix prophylaxis * ID recommendations appreciated * GI recommendations appreciated Transaminitis/Bilirubinemia US RUQ was negative for biliary dilatation. She is scheduled today for a MRCP * Monitor liver function * If patient worsen consider transfer to [place] for ERCP * Follow up MRCP results History of HTN * cont amlodpine and metoprolol History of anxiety * cont Cymbalta, Klonopin, trazodone for sleep Diet: Clear liquid DVT prophylaxis: Lovenox Full code Problem List: 1. Pancreatitis 2. Abdominal pain 3. Nausea & vomiting Pain Ratin Tomorrow's Labs & Rationales: CBC, Bundle Plan DVT/Prophylaxis: pharmacological Bert Monge 06/21/17 1200: Attending MD Review Statement Attending Sign Off Attending Cosign Statement: I have: examined this patient, reviewed [facility] EMR data, personally reviewd images, discussd w/resident/PA/HEALTH NURSE, discussed mgmt plan w/aiden, discussed mgmt plan w/CM, discussed mgmt plan w/pt. Other Findings: 47 o/f with acute pancreatitis recently transferred to [place] for possible aspiration of pancreatic wall on CT but managed conservatively and discharged to home, however patient symptoms did not improve with persistent nasuea so she decided to come to ER. Labs with stabilisation of LFTs Patient seen/examined bedside. Patient denies any new complaints. She is taking pain meds. She is having good urine output. Her epigastric tenderness+. Her AST/ ALTs increased and bili is elevtaed but stable. GI and ID consulted for pancreatic necrosis. c/w pain control, prn nausea meds, decrease IVF as Diet/Nutrition plan as per GI. c/w full liquid and assess clinically. Abx (monitor off) as per ID. RUQ USG with no ductal dilation as per GI. MRCP today as per GI. avoid medications which can cause pancreatitis. gi/dvt prophyalxis full code. Plan of care d.wed patient bedside. Follow her clinically and can be transferred out of ICU.
[2017-06-21 08:00] VITALS: BP 130/80
[2017-06-21 08:05] LABS: ABSOLUTE BASOPHIL COUNT 0 /CUMM (0.0-0.2); ABSOLUTE EOSINOPHIL COUNT 0.5 /CUMM (0.0-0.7); ABSOLUTE GRANULOCYTE CT 3.9 /CUMM (1.4-6.5); ABSOLUTE MONOCYTE COUNT 0.6 /CUMM (0.10-0.60); BASOPHIL % 0.4 % (0.0-2.0); EOSINOPHIL % 7.7 % (0-5); HEMATOCRIT 34.8 % (37-47); MEAN CORPUSCULAR HGB 30.1 PG (27.0-31.0); MEAN CORPUSCULAR HGB CONC 32.7 G/DL (33.0-37.0); MEAN CORPUSCULAR VOLUME 92.2 FL (81.0-99.0); MEAN PLATELET VOLUME 8.3 FL (7.4-10.4); PLATELET COUNT 308 /CUMM (130-400); RBC DISTRIBUTION WIDTH 14.2 % (11.5-14.5); RED BLOOD CELL CT 3.77 /CUMM (4.20-5.40); WHITE BLOOD CELL COUNT 5.9 /CUMM (4.8-10.8)
--- NOTE | 2017-06-21 11:09 | PN- Infect Dx ---
Subjective Subjective: Afebrile. She continues to complain of abdominal pain. She also notes nausea with no vomiting. She reports increased swelling of both legs with no shortness of breath. Objective Last 24 Hrs of Vital Signs/I&O Vital Signs Date Time Temp Pulse Resp B/P B/P Pulse O2 O2 Flow FiO2 Mean Ox Delivery Rate 06/21 0840 80 134/80 06/21 0840 80 134/80 06/21 0239 96.9 999 20 126/70 96 Room Air Room Air 06/20 1600 98.6 96 22 108/78 95 Room Air Intake & Output 06/21 1600 06/21 0800 06/21 0000 Intake Total 995 1313 Output Total 200 100 Balance 795 1213 Intake, IV 875 913 Intake, Oral 120 400 Number 0 0 Bowel Movements Output, Urine 200 100 Physical Exam Other Physical Findings: She appears comfortable in no acute distress Lungs are clear Heart regular rhythm with no murmur Abdomen is obese, soft, tender on palpation over the right upper quadrant, with no guarding or rebound, positive bowel sounds Extremities minimal edema both lower extremities Results Last 24 Hours of Lab Results: Laboratory Tests 06/21 07 Chemistry Sodium (137 - 145 mmol/L) 143 Potassium (3.5 - 5.1 mmol/L) 4.2 Chloride (98 - 107 mmol/L) 98 Carbon Dioxide (22 - 30 mmol/L) 30 Anion Gap (5 - 16) 15 BUN (7 - 17 mg/dL) 2 L Creatinine (0.5 - 1.0 mg/dL) 0.5 Estimated GFR (>60 ml/min) > 60 Glucose (65 - 99 mg/dL) 98 Calcium (8.4 - 10.2 mg/dL) 9.5 Phosphorus (2.5 - 4.5 mg/dL) 4.5 Magnesium (1.6 - 2.3 mg/dL) 1.7 Total Bilirubin (0.2 - 1.3 mg/dL) 0.9 Direct Bilirubin (< 0.4 mg/dL) 0.6 H AST (14 - 36 U/L) 100 H ALT (9 - 52 U/L) 118 H Alkaline Phosphatase (<127 U/L) 381 H Total Protein (6.3 - 8.2 g/dL) 5.8 L Albumin (3.5 - 5.0 g/dL) 3.1 L Hematology CBC w Diff NO MAN DIFF REQ WBC (4.8 - 10.8 /CUMM) 5.9 RBC (4.20 - 5.40 /CUMM) 3.77 L Hgb (12.0 - 16.0 G/DL) 11.4 L Hct (37 - 47 %) 34.8 L MCV (81.0 - 99.0 FL) 92.2 MCH (27.0 - 31.0 PG) 30.1 RDW (11.5 - 14.5 %) 14.2 Plt Count (130 - 400 /CUMM) 308 MPV (7.4 - 10.4 FL) 8.3 Gran % (42.2 - 75.2 %) 66.0 Lymphocytes % (20.5 - 51.1 %) 16.5 L Monocytes % (1.7 - 9.3 %) 9.4 H Eosinophils % (0 - 5 %) 7.7 H Basophils % (0.0 - 2.0 %) 0.4 Absolute Granulocytes (1.4 - 6.5 /CUMM) 3.9 Absolute Lymphocytes (1.2 - 3.4 /CUMM) 1.0 L Absolute Monocytes (0.10 - 0.60 /CUMM) 0.6 Absolute Eosinophils (0.0 - 0.7 /CUMM) 0.5 Absolute Basophils (0.0 - 0.2 /CUMM) 0 PUBS MCHC (33.0 - 37.0 G/DL) 32.7 L Last 24 Hours of Dangelo Results: No new cultures Assessment/Plan Impression: Recurrent pancreatitis, possibly secondary to choledocholithiasis, with persistent abdominal discomfort and elevated liver enzymes, though with no biliary dilatation on the recent ultrasound. Her CT scan revealed necrosis in the head and neck of the pancreas, not significantly changed from the previous CT scan, but her temperatures and white blood cell count remain normal off antibiotics. She continues to receive a significant amount of IV fluids, which likely explains her lower extremity edema. Suggestion: 1. Would pursue an MRCP 2. Further management of her pancreatitis per GI 3. Would reduce IV fluids as she is taking increased po 4. Continue to follow off antibiotics
[2017-06-21 16:00] VITALS: BP 130/80
--- NOTE | 2017-06-21 16:33 | MRI REPORT ---
EXAMINATION: MR ABDOMEN WITHOUT CONTRAST CLINICAL INFORMATION: Elevated LFT and total bilirubin. Abdominal pain. COMPARISON: Abdominal ultrasound 06/19/2017. CT scan 06/15/2017. TECHNIQUE: MR abdomen without contrast was obtained using routine sequences. FINDINGS: There is intrahepatic and extrahepatic biliary ductal prominence, with the common bile duct measuring up to 1.1 cm in diameter. The dilatation extends proximal to a peripancreatic fluid collection. No convincing choledocholithiasis. Susceptibility artifact from cholecystectomy clips noted. There is redemonstration of multiple peripancreatic fluid collections. The largest collection demonstrates intraluminal debris and measures 7.5 x 6.5 x 7.6 cm; this lesion has increased in size compared to prior CT 06/15/2017. More cephalad, there is a smaller collection without significant intraluminal debris measuring 6.1 x 3.7 x 6.0 cm, which has increased in size and conspicuity compared to prior CT scan. A third cystic lesion inferior to the largest lesion measures 4.7 x 3.6 x 3.7 cm; this demonstrates internal debris. There is mild pancreatic ductal dilatation within the body and tail extending to the larger more complex peripancreatic cyst. There is trace peripancreatic edema. No suspicious hepatic lesion. No evidence of hepatic steatosis. No splenomegaly. The adrenal glands are unremarkable. Redemonstration of a left renal cyst extending exophytically from the anterior upper pole. Bowel gas pattern is nonobstructive. No acute bowel pathology demonstrated. No bulky adenopathy. Trace bilateral pleural fluid. No suspicious osseous signal. IMPRESSION: 1. Three discrete peripancreatic lesions which have increased in size and conspicuity compared to CT scan 06/15/2017 (see [facility] images). These may represent pseudocysts. A couple of these lesions demonstrate internal debris. Attention on followup recommended. 2. There is mild intrahepatic and extrahepatic biliary ductal prominence extending to the level of the largest peripancreatic cystic structure. This cystic structure may be causing a degree of obstruction, however the mild biliary ductal prominence is nonspecific status post cholecystectomy. No convincing choledocholithiasis. 3. Mild pancreatic ductal prominence, not significantly changed compared to exam 06/15/2017.
--- NOTE | 2017-06-21 16:35 | PN- Gastroenterology ---
Assessment/Plan Assessment/Recommendations: IMPRESSION: 1. Nausea, Vomiting and Abdominal Pain --adequately controlled on current regimen 2. 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 Abnormal CT Scan of the Abdomen 4. Tachycardia 5. Abnormal Transaminases -- US of the RUQ did not show any ductal dilatation. MRI/MRCP is scheduled for today too rule out DCBD stone. 6. Morbid Obesity RECOMMENDATIONS: 1. Await results of MRI/MRCP 2. Continue to follow liver-associated enzymes 3. If there is ductal dilatation or suggestion of a CBD stone on MRCP then patient will need transfer to [facility] for EUS/ERCP Subjective Subjective: Patient feeling somewhat better. Less pain, but not pain free. No nausea and vomiting. Liver-associated enzymes remain elevated. Objective Vital Signs and I&Os Vital Signs Date Time Temp Pulse Resp B/P B/P Pulse O2 O2 Flow FiO2 Mean Ox Delivery Rate 06/21 0840 80 134/80 06/21 09 80 134/80 06/21 0800 98.8 92 20 130/80 97 Room Air 06/21 0239 96.9 999 20 126/70 96 Room Air Room Air Intake & Output 06/21 1600 06/21 0400 06/20 1600 06/20 0400 06/19 1600 06/19 0400 Intake Total 1994 1313 2730 1240 2180 2049 Output Total 1000 100 794 676 8875 1500 Balance 995 1213 1930 640 980 550 Intake, IV 9360 801 9498 1000 1980 2000 Intake, Oral 520 400 990 240 200 50 Number 1 0 0 0 0 Bowel Movements Output, Urine 1000 100 676 083 2020 1500 Physical Exam General Appearance: well developed/nourished, alert, awake Respiratory: lungs clear Cardiovascular: regular rate/rhythm, Normal S1 and S2 without Rub, Murmur or Gallop Neurologic/Psychiatric: oriented x 3, normal mood/affect Current Medications: Current Medications Sig/Anay Start time Last Medication Dose Route Stop Time Status Admin Acetaminophen 650 MG Q6P PRN 06/15 1345 AC 06/18 PO 2152 Amlodipine Besylate 10 MG DAILY 06/15 1620 AC 06/21 PO 0940 Clonazepam 1 MG BID PRN 06/15 1630 AC 06/17 PO 06/22 1629 1540 Docusate Sodium 100 MG DAILY 06/20 1105 AC 06/21 PO 0940 Duloxetine HCl 120 MG DAILY 06/16 1000 AC 06/21 PO 0940 Enoxaparin Sodium 40 MG DAILY 06/16 1055 AC 06/21 SC 0940 Hydromorphone HCl 1 MG Q6P PRN 06/15 1345 AC 06/21 IV 0823 Lactated Ringer's 1,000 ML Q8H 06/15 2300 AC 06/21 IV 0817 Lidocaine 1 PAT DAILY NEEDED PRN 06/20 1115 AC 06/20 EXT 1215 Metoprolol Succinate 100 MG DAILY 06/15 1622 AC 06/21 PO 0940 Morphine Sulfate 2 MG Q6-PRN PRN 06/15 1345 AC 06/21 IV 1616 Ondansetron HCl 4 MG Q6P PRN 06/15 1415 AC 06/15 IV 2042 Polyethylene Glycol 17 GM DAILY NEEDED PRN 06/20 1115 AC PO Senna 187 MG AT BEDTIME 06/20 2200 AC 06/20 PO 2139 Simethicone 80 MG Q4P PRN 06/17 2145 AC PO Trazodone HCl 50 MG QPM 06/15 2200 AC 06/20 PO 2140 Trimethobenzamide HCl 200 MG Q6P PRN 06/16 2345 AC 06/21 IM 1616 Results Pertinent Lab Results: Laboratory Tests 06/21 06/20 0730 0436 Chemistry Sodium (137 - 145 mmol/L) 143 136 L Potassium (3.5 - 5.1 mmol/L) 4.2 3.8 Chloride (98 - 107 mmol/L) 98 99 Carbon Dioxide (22 - 30 mmol/L) 30 23 Anion Gap (5 - 16) 15 14 BUN (7 - 17 mg/dL) 2 L 2 L Creatinine (0.5 - 1.0 mg/dL) 0.5 0.5 Estimated GFR (>60 ml/min) > 60 > 60 Glucose (65 - 99 mg/dL) 98 111 H Calcium (8.4 - 10.2 mg/dL) 9.5 9.4 Phosphorus (2.5 - 4.5 mg/dL) 4.5 4.7 H Magnesium (1.6 - 2.3 mg/dL) 1.7 1.4 L Total Bilirubin (0.2 - 1.3 mg/dL) 0.9 1.9 H Direct Bilirubin (< 0.4 mg/dL) 0.6 H 1.3 H AST (14 - 36 U/L) 100 H 115 H ALT (9 - 52 U/L) 118 H 112 H Alkaline Phosphatase (<127 U/L) 381 H 315 H Total Protein (6.3 - 8.2 g/dL) 5.8 L Albumin (3.5 - 5.0 g/dL) 3.1 L 3.0 L Hematology CBC w Diff NO MAN DIFF REQ NO MAN DIFF REQ WBC (4.8 - 10.8 /CUMM) 5.9 7.2 RBC (4.20 - 5.40 /CUMM) 3.77 L 3.41 L Hgb (12.0 - 16.0 G/DL) 11.4 L 10.3 L Hct (37 - 47 %) 34.8 L 31.4 L MCV (81.0 - 99.0 FL) 92.2 91.8 MCH (27.0 - 31.0 PG) 30.1 30.2 RDW (11.5 - 14.5 %) 14.2 13.8 Plt Count (130 - 400 /CUMM) 308 285 MPV (7.4 - 10.4 FL) 8.3 8.1 Gran % (42.2 - 75.2 %) 66.0 72.1 Lymphocytes % (20.5 - 51.1 %) 16.5 L 10.9 L Monocytes % (1.7 - 9.3 %) 9.4 H 10.9 H Eosinophils % (0 - 5 %) 7.7 H 5.8 H Basophils % (0.0 - 2.0 %) 0.4 0.3 Absolute Granulocytes (1.4 - 6.5 /CUMM) 3.9 5.2 Absolute Lymphocytes (1.2 - 3.4 /CUMM) 1.0 L 0.8 L Absolute Monocytes (0.10 - 0.60 /CUMM) 0.6 0.8 H Absolute Eosinophils (0.0 - 0.7 /CUMM) 0.5 0.4 Absolute Basophils (0.0 - 0.2 /CUMM) 0 0 PUBS MCHC (33.0 - 37.0 G/DL) 32.7 L 32.9 L 06/19 0344 Chemistry Sodium (137 - 145 mmol/L) 138 Potassium (3.5 - 5.1 mmol/L) 4.1 Chloride (98 - 107 mmol/L) 99 Carbon Dioxide (22 - 30 mmol/L) 23 Anion Gap (5 - 16) 15 BUN (7 - 17 mg/dL) 2 L Creatinine (0.5 - 1.0 mg/dL) 0.5 Estimated GFR (>60 ml/min) > 60 Glucose (65 - 99 mg/dL) 93 Calcium (8.4 - 10.2 mg/dL) 9.1 Phosphorus (2.5 - 4.5 mg/dL) 4.6 H Magnesium (1.6 - 2.3 mg/dL) 1.5 L Total Bilirubin (0.2 - 1.3 mg/dL) 2.3 H Direct Bilirubin (< 0.4 mg/dL) 1.5 H AST (14 - 36 U/L) 118 H ALT (9 - 52 U/L) 89 H Alkaline Phosphatase (<127 U/L) 283 H Albumin (3.5 - 5.0 g/dL) 3.0 L Hematology CBC w Diff NO MAN DIFF REQ WBC (4.8 - 10.8 /CUMM) 7.1 RBC (4.20 - 5.40 /CUMM) 3.53 L Hgb (12.0 - 16.0 G/DL) 10.7 L Hct (37 - 47 %) 32.6 L MCV (81.0 - 99.0 FL) 92.2 MCH (27.0 - 31.0 PG) 30.2 RDW (11.5 - 14.5 %) 13.9 Plt Count (130 - 400 /CUMM) 299 MPV (7.4 - 10.4 FL) 8.5 Gran % (42.2 - 75.2 %) 69.1 Lymphocytes % (20.5 - 51.1 %) 13.9 L Monocytes % (1.7 - 9.3 %) 10.6 H Eosinophils % (0 - 5 %) 6.1 H Basophils % (0.0 - 2.0 %) 0.3 Absolute Granulocytes (1.4 - 6.5 /CUMM) 4.9 Absolute Lymphocytes (1.2 - 3.4 /CUMM) 1.0 L Absolute Monocytes (0.10 - 0.60 /CUMM) 0.7 H Absolute Eosinophils (0.0 - 0.7 /CUMM) 0.4 Absolute Basophils (0.0 - 0.2 /CUMM) 0 PUBS MCHC (33.0 - 37.0 G/DL) 32.8 L Imaging/Other Studies: IMPRESSION: The liver is diffusely echogenic and sound attenuating consistent with diffuse hepatic steatosis. There is hepatomegaly as well. No biliary ductal dilatation however. Status post cholecystectomy. Ill-defined hypoechogenicity in the region of the pancreatic head is consistent with the previously seen pancreatic fluid collection. If the patient has had pancreatitis for 4+ weeks, this would be a pseudocyst.
[2017-06-21 19:31] VITALS: BP 104/62
[2017-06-21 22:32] VITALS: BP 98/62
[2017-06-22 06:13] VITALS: BP 124/76
--- NOTE | 2017-06-22 07:52 | PN- Housestaff ---
DmitryElenita Faraz 06/22/17 0752: Subjective Follow-up For: Pancreatitis Pancreatic tissue necrosis without infection Nausea/vomiting - resolved Transaminitis Subjective: Some Nausea this morning. Acknowledged MRCP results. Had only 1-2/10 soreness/ pain at epigastric area. Wondering when she could be discharged. Tolerating full liquid diet. Could walk to bathroom by herself. Review of Systems Constitutional: Reports: see HPI. Objective Last 24 Hrs of Vital Signs/I&O Vital Signs Date Time Temp Pulse Resp B/P B/P Pulse O2 O2 Flow FiO2 Mean Ox Delivery Rate 06/22 612 98.7 96 20 124/76 95 06/21 2232 97.9 91 20 98/62 98 Room Air 06/21 1931 98.4 97 20 104/62 94 Room Air 06/21 1600 98.0 80 22 130/80 98 Room Air 06/21 0940 80 134/80 06/21 0940 80 134/80 06/21 0800 98.8 92 20 130/80 97 Room Air Intake & Output 06/22 0800 06/22 0000 06/21 1600 Intake Total 666 156 7929 Output Total 800 Balance 840 315 200 Intake, IV 600 75 600 Intake, Oral 240 240 400 Number 1 Bowel Movements Output, Urine 800 Physical Exam General Appearance: Alert, Oriented X3, Cooperative, No Acute Distress Cardiovascular: Regular Rate Abdomen: Soft, 1-2/10 soreness upon pressing epigastric region Neurological: Normal Speech Extremities: Normal Pulses, Trace edema BLE Current Medications: Current Medications Sig/Anay Start time Last Medication Dose Route Stop Time Status Admin Acetaminophen 650 MG Q6P PRN 06/15 1345 AC 06/18 PO 2152 Amlodipine Besylate 10 MG DAILY 06/15 1620 AC 06/21 PO 0940 Clonazepam 1 MG BID PRN 06/15 1630 AC 06/17 PO 06/22 1629 1540 Docusate Sodium 100 MG DAILY 06/20 1105 AC 06/21 PO 0940 Duloxetine HCl 120 MG DAILY 06/16 1000 AC 06/21 PO 0940 Enoxaparin Sodium 40 MG DAILY 06/16 1055 AC 06/21 SC 0940 Hydromorphone HCl 1 MG Q6P PRN 06/15 1345 AC 06/21 IV 1849 Lactated Ringer's 1,000 ML Q8H 06/15 2300 AC 06/22 IV 0504 Lidocaine 1 PAT DAILY NEEDED PRN 06/20 1115 AC 06/20 EXT 1215 Metoprolol Succinate 100 MG DAILY 06/15 1622 AC 06/21 PO 0940 Morphine Sulfate 2 MG Q6-PRN PRN 06/15 1345 AC 06/21 IV 1616 Ondansetron HCl 4 MG Q6P PRN 06/15 1415 AC 06/22 IV 0753 Polyethylene Glycol 17 GM DAILY NEEDED PRN 06/20 1115 AC PO Senna 187 MG AT BEDTIME 06/20 2200 AC 06/20 PO 2139 Simethicone 80 MG Q4P PRN 06/17 2145 AC PO Trazodone HCl 50 MG QPM 06/15 2200 AC 06/21 PO 2115 Trimethobenzamide HCl 200 MG .STK-MED ONE 06/21 1614 DC IM 06/21 1615 Trimethobenzamide HCl 200 MG Q6P PRN 06/16 2345 AC 06/21 IM 1616 Last 24 Hrs of Lab/Dangelo Results Last 24 Hrs of Labs/Mics: Laboratory Tests 06/22/17 0717: Sodium Pending, Potassium Pending, Chloride Pending, Carbon Dioxide Pending, Anion Gap Pending, BUN Pending, Creatinine Pending, Glucose Pending, Calcium Pending, Phosphorus Pending, Magnesium Pending, Total Bilirubin Pending, Direct Bilirubin Pending, AST Pending, ALT Pending, Alkaline Phosphatase Pending, Albumin Pending, Amylase Pending, Lipase Pending, CBC w Diff Pending, WBC Pending, RBC Pending, Hgb Pending, Hct Pending, MCV Pending, MCH Pending, RDW Pending, Plt Count Pending, MPV Pending, PUBS MCHC Pending Assessment/Plan Assessment: Ms. Kwok is a 47 yo F with a history of necrotic pancreatitis, obesity, hypertension, anxiety, DVT on the left LE, hyperlipidemia, recently hospitalized 3 weeks prior to this admission with acute pancreatitis in the setting of cholelithiasis, status post cholecystectomy during the admission and recently discharged from [place] for necrotic pancreatitis presenting for pancreatitis. She was transferred to the ICU for close monitoring due to tachycardia and pleural effusions. Pancreatitis Lipase 4759. amylase 778. -> 4859/447 CT abd: area of walled off necrosis involving the pancreatic head and neck. Decreasing but persistent adjacent inflammatory changes.Trace bilateral pleural effusions with atelectasis, increased from prior. ECHO demonstrated an EF of 65% , mild left atrial, trace mitral regurgitation enlargement, trace tricuspid regurgitation. CXR demonstrated resolution of trace BL plueral effusions * Continue Lactated Ringer at 75cc/h to avoid fluid overload, encourage patient to increase PO intake if possible * Tigan/Zofran prn nausea, protonix prophylaxis * ID recommendations appreciated * GI recommendations appreciated Transaminitis/Bilirubinemia US RUQ was negative for biliary dilatation. * Monitor liver function, trending down 55/90 on latest lab - MRCP 06/21: 1. Three discrete peripancreatic lesions which have increased in size and conspicuity compared to CT scan 06/15/2017 (see tirado images). These may represent pseudocysts. A couple of these lesions demonstrate internal debris. Attention on followup recommended. 2. There is mild intrahepatic and extrahepatic biliary ductal prominence extending to the level of the largest peripancreatic cystic structure. This cystic structure may be causing a degree of obstruction, however the mild biliary ductal prominence is nonspecific status post cholecystectomy. No convincing choledocholithiasis. 3. Mild pancreatic ductal prominence, not significantly changed compared to exam 06/15/2017. - Gen Surge consult recommended observation for pseudocyst and may need serial CT imaging for follow up and outpatient evaluation by Dr. Soriano (who performed lap shay) or Dr. Laguna. History of HTN * cont amlodpine and metoprolol History of anxiety * cont Cymbalta, Klonopin, trazodone for sleep Diet: Clear liquid advancing to full liquid DVT prophylaxis: Lovenox Full code Problem List: 1. Acute pancreatitis 2. Status post laparoscopic cholecystectomy Pain Ratin Pain Location: NA Pain Goal: Remain pain free Pain Plan: see AP Tomorrow's Labs & Rationales: CBC/BEP/LFTs SaleemBert 06/22/17 1247: Attending MD Review Statement Attending Statement Attending MD Statement: examined this patient, discuss w/resident/PA/PURCHASING INTERN, agreed w/resident/PA/PURCHASING INTERN, discussed with family, reviewed EMR data (avail), discussed with nursing, discussed with case mgmt, reviewed images, amended to note Attending Assessment/Plan: 47 o/f with acute pancreatitis recently transferred to [place] for possible aspiration of pancreatic wall on CT but managed conservatively and discharged to home, however patient symptoms did not improve with persistent nasuea so she decided to come to ER. Labs with stabilisation of LFTs Patient seen/examined bedside. Patient denies any new complaints. She is taking pain meds. She is having good urine output. Her epigastric tenderness+. Her AST/ ALTs stable. MRCP noted. GI and ID consulted for pancreatic necrosis. c/w pain control, prn nausea meds, decrease IVF as Diet/Nutrition plan as per GI. c/w full liquid and assess clinically. Abx (monitor off) as per ID. RUQ USG with no ductal dilation as per GI. MRCP with no stones however biliary dilation + which is extending upto psuedocyst. General surgery consult. avoid medications which can cause pancreatitis. gi/dvt prophyalxis full code. Plan of care d.wed patient bedside. Follow her clinically.
[2017-06-22 08:03] LABS: ABSOLUTE BASOPHIL COUNT 0.1 /CUMM (0.0-0.2); ABSOLUTE EOSINOPHIL COUNT 0.5 /CUMM (0.0-0.7); ABSOLUTE LYMPH COUNT 0.8 /CUMM (1.2-3.4); ABSOLUTE MONOCYTE COUNT 0.4 /CUMM (0.10-0.60); BASOPHIL % 1.9 % (0.0-2.0); GRANULOCYTE % 63.4 % (42.2-75.2); HEMATOCRIT 32.6 % (37-47); MEAN CORPUSCULAR HGB CONC 32.8 G/DL (33.0-37.0); MEAN CORPUSCULAR VOLUME 91.6 FL (81.0-99.0); MEAN PLATELET VOLUME 8.6 FL (7.4-10.4); PLATELET COUNT 316 /CUMM (130-400); RBC DISTRIBUTION WIDTH 14.3 % (11.5-14.5); RED BLOOD CELL CT 3.56 /CUMM (4.20-5.40); WHITE BLOOD CELL COUNT 4.8 /CUMM (4.8-10.8)
--- NOTE | 2017-06-22 11:44 | Cons- General Surgery ---
General Information and HPI Consulting Request Date of Consult: 06/22/17 Requested By: Bert Monge MD Reason for Consult: pancreatic pseudocyst History of Present Illness: patient known to me from previous consultation re: gallstone pancreatitis. Laparoscopic cholecystectomy perfomed by bariatric group as she was already established in their practice and in w/u for sleeve gastrectomy. Patient on index admission had fairly severe pancreatitis as evidenced by severe tachycardia. Patient is now readmitted with what is likely ongoing pancreatitis. She was rescucitated in ICU and now improved, tolerating diet. Abdominal pain is minimal. MRCP performed due to concerns of biliary obstructive process. Allergies/Medications Allergies: Coded Allergies: Sulfa (Sulfonamide Antibiotics) (Intermediate, RASH 05/21/17) valsartan (From DIOVAN) (RASH 05/21/17) Home Med List: Amlodipine Besylate 5 MG TABLET 2 TAB PO DAILY BP (Reported) Clonazepam 1 MG TABLET 1 TAB PO BIDP PRN ANXIETY (Reported) Duloxetine HCl 60 MG CAPSULE.DR 2 CAP PO DAILY MENTAL HEALTH/NERVE PAIN ( Reported) Ergocalciferol (Vitamin D2) (Vitamin D2) 50,000 UNIT CAPSULE 1 CAP PO QWED SUPPLEMENT (Reported) Hydromorphone (Hydromorphone HCl) 2 MG/ML VIAL 2 MG IV Q4 PRN SEVER PAIN Metoprolol Succinate 100 MG TAB.ER.24H 1 TAB PO DAILY HEART/BP (Reported) Montelukast Sodium 10 MG TABLET 1 TAB PO DAILY ALLERGIES (Reported) Ondansetron (Zofran Odt) 4 MG TAB.RAPDIS 1 TAB SL TID PRN NAUSEA/VOMITING ( Reported) Polyethylene Glycol 3350 (Miralax) 17 GRAM/DOSE POWDER 17 GM PO DAILY PRN CONSTIPATION . Sennosides/Docusate Sodium (Senna-Time S Tablet) 8.6 MG-50 MG TABLET 187 MG PO AT BEDTIME PRN constipation . Trazodone HCl 50 MG TABLET 1 TAB PO QPM SLEEP (Reported) Past History Medical History Blood Transfusion Hx: No Neurological: NONE EENT: Lasik surgery Cardiovascular: hypertension, hyperlipidemia Respiratory: asthma, obstructive sleep apnea Gastrointestinal: pancreatitis Hepatic: ? 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 Age 67. MOTHER, , Age 34; Cause: MVA (motor vehicle accident). PGA, , Age 85; Cause: Colon cancer. Relation not specified for: *No pertinent family history Psychosocial History Where Do You Live? Home Who Do You Live With? spouse Services at Home: None Primary Language: Qatari Smoking Status: Never Smoked ETOH Use: denies use Illicit Drug Use: denies illicit drug use Living Will? 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 no Functional Ability ADLs Independent: dressing, eating, toileting, bathing. Ambulation: independent IADLs Independent: shopping, housework, finances, food prep, telephone, transportation , medication admin. Review of Systems Review of Systems: No chest pain or dyspnea. +urinary frequency. abdominal pain per hpi. otw 12pts neg. Exam & Diagnostic Data Vital Signs and I&O Vital Signs Date Time Temp Pulse Resp B/P B/P Pulse O2 O2 Flow FiO2 Mean Ox Delivery Rate 06/22 612 98.7 96 20 124/76 95 06/21 2232 97.9 91 20 98/62 98 Room Air 06/21 1931 98.4 97 20 104/62 94 Room Air 06/21 1600 98.0 80 22 130/80 98 Room Air Intake & Output 06/22 1600 06/22 0800 06/22 0000 06/21 1600 06/21 0800 06/21 0000 Intake Total 411 824 4558 995 1313 Output Total 800 200 100 Balance 840 315 404 924 1602 Intake, IV 600 75 600 875 913 Intake, Oral 240 240 400 120 400 Number 1 0 0 Bowel Movements Output, Urine 800 200 100 Physical Exam: Gen: obese, nad, looks well/age heent; anicteric, perrl, eomi. mmm abd; obese, soft, fullness in epigastrum without guarding. no mass or hernia. Last 24 Hours of Labs: Laboratory Tests 06/22 07 Chemistry Sodium (137 - 145 mmol/L) 145 Potassium (3.5 - 5.1 mmol/L) 4.0 Chloride (98 - 107 mmol/L) 100 Carbon Dioxide (22 - 30 mmol/L) 29 Anion Gap (5 - 16) 16 BUN (7 - 17 mg/dL) 2 L Creatinine (0.5 - 1.0 mg/dL) 0.5 Estimated GFR (>60 ml/min) > 60 Glucose (65 - 99 mg/dL) 97 Calcium (8.4 - 10.2 mg/dL) 9.5 Phosphorus (2.5 - 4.5 mg/dL) 4.8 H Magnesium (1.6 - 2.3 mg/dL) 1.6 Total Bilirubin (0.2 - 1.3 mg/dL) 0.6 Direct Bilirubin (< 0.4 mg/dL) 0.4 AST (14 - 36 U/L) 55 H ALT (9 - 52 U/L) 90 H Alkaline Phosphatase (<127 U/L) 297 H Albumin (3.5 - 5.0 g/dL) 3.0 L Amylase (30 - 110 U/L) 447 H Lipase (23 - 300 U/L) 4859 H Hematology CBC w Diff NO MAN DIFF REQ WBC (4.8 - 10.8 /CUMM) 4.8 RBC (4.20 - 5.40 /CUMM) 3.56 L Hgb (12.0 - 16.0 G/DL) 10.7 L Hct (37 - 47 %) 32.6 L MCV (81.0 - 99.0 FL) 91.6 MCH (27.0 - 31.0 PG) 30.0 RDW (11.5 - 14.5 %) 14.3 Plt Count (130 - 400 /CUMM) 316 MPV (7.4 - 10.4 FL) 8.6 Gran % (42.2 - 75.2 %) 63.4 Lymphocytes % (20.5 - 51.1 %) 16.4 L Monocytes % (1.7 - 9.3 %) 8.3 Eosinophils % (0 - 5 %) 10.0 H Basophils % (0.0 - 2.0 %) 1.9 Absolute Granulocytes (1.4 - 6.5 /CUMM) 3.0 Absolute Lymphocytes (1.2 - 3.4 /CUMM) 0.8 L Absolute Monocytes (0.10 - 0.60 /CUMM) 0.4 Absolute Eosinophils (0.0 - 0.7 /CUMM) 0.5 Absolute Basophils (0.0 - 0.2 /CUMM) 0.1 PUBS MCHC (33.0 - 37.0 G/DL) 32.8 L Other Results: MRCP images viewed. moderate sized pseudocyst. CT 06/15/17 viewed. moderate pancreatic head pseudocyst. Assessment/Plan Assessment/Plan Pancreatic pseudocyst. MRCP images difficult to interpret in regards to bile duct. However her bilirubin is now normal and as such, no intervention is necessary. Given the new onset nature of the pseudocyst and absence of superimposted infection or obstructive symptoms, I recommend observation of it. She will need serial imaging of it to evaluate for resolution (CT preferable). This can be performed as an outpatient by Dr. Soriano (who performed lap shay) or me, whomever she chooses. Her diet can be advanced and she can be prepared for discharge pending the clinical course. Copies To: Hermelindo BRUNNER,Bienvenido Consult Acknowledgment - Thank you for your consult request.
--- NOTE | 2017-06-22 11:49 | PN- Gastroenterology ---
Assessment/Plan Assessment/Recommendations: IMPRESSION: 1. MRI/MRCP -- with mild intra and extrahepatic biliary ductal dilatation. No CBD stone visualized. 2. Abnormal Transaminases as well as Elevated Bilirubin and Alkaline Phosphatase -- alk phos trending downwards and generally lags behind other enzymes after passage of a stone. Bilirubin and transaminases normal. 3. Acute Pancreatitis with Walled Off Necrosis -- resolving 4. Morbid Obesity 5. Pancreatic necrosis -- no signs of infection. walled off, but not mature for drainage. MRI shows internal debris. Picture this admission suggestive of passage of a small stone. Would not transfer for ERCP as there is no stone seen on MRI/MRCP and pattern of liver enzymes as well as bilirubin and alk phos suggest passage of a stone. RECOMMENDATIONS: 1. Continue pain control but would attempt transition to oral analgesia 2. Treat conservatively 3. Advance diet gradually as tolerated. 4. Will need close follow up regarding pancreatic pseudocysts/walled off necrosis. Subjective Subjective: Patient doing well. Less pain. Results of MRI/MRCP with respect to choledocholithiasis is as follows: "There is intrahepatic and extrahepatic biliary ductal prominence, with the common bile duct measuring up to 1.1 cm in diameter. The dilatation extends proximal to a peripancreatic fluid collection. No convincing choledocholithiasis. Susceptibility artifact from cholecystectomy clips noted." Objective Vital Signs and I&Os Vital Signs Date Time Temp Pulse Resp B/P B/P Pulse O2 O2 Flow FiO2 Mean Ox Delivery Rate 06/22 612 98.7 96 20 124/76 95 06/21 2231 97.9 91 20 98/62 98 Room Air 06/21 193 98.4 97 20 104/62 94 Room Air 06/21 1600 98.0 80 22 130/80 98 Room Air Intake & Output 06/22 0400 06/21 1600 06/21 0400 06/20 1600 06/20 0400 Intake Total 211 617 4857 1313 2730 1240 Output Total 1000 100 800 600 Balance 840 385 863 1701 1930 640 Intake, IV 812 91 [id number] 158 8311 1000 Intake, Oral 240 240 520 400 990 240 Number 1 0 0 0 Bowel Movements Output, Urine 1000 100 800 600 Physical Exam General Appearance: no apparent distress, alert, awake Respiratory: lungs clear Cardiovascular: regular rate/rhythm, Normal S1 and S2 without rub, murmur or gallop Abdomen: normal bowel sounds, soft Neurologic/Psychiatric: awake, alert, oriented x 3 Skin: intact, normal color, warm/dry Current Medications: Current Medications Sig/Anay Start time Last Medication Dose Route Stop Time Status Admin Acetaminophen 650 MG Q6P PRN 06/15 1345 AC 06/18 PO 2152 Amlodipine Besylate 10 MG DAILY 06/15 1620 AC 06/22 PO 0926 Clonazepam 1 MG BID PRN 06/15 1630 AC 06/22 PO 06/22 1629 0926 Docusate Sodium 100 MG DAILY 06/20 1105 AC 06/22 PO 0926 Duloxetine HCl 120 MG DAILY 06/16 1000 AC 06/22 PO 0926 Enoxaparin Sodium 40 MG DAILY 06/16 1055 AC 06/22 SC 0927 Hydromorphone HCl 1 MG Q6P PRN 06/15 1345 AC 06/21 IV 1849 Lactated Ringer's 1,000 ML Q8H 06/15 2300 AC 06/22 IV 0504 Lidocaine 1 PAT DAILY NEEDED PRN 06/20 1115 AC 06/20 EXT 1215 Metoprolol Succinate 100 MG DAILY 06/15 1622 AC 06/22 PO 0926 Morphine Sulfate 2 MG Q6-PRN PRN 06/15 1345 AC 06/21 IV 1616 Ondansetron HCl 4 MG Q6P PRN 06/15 1415 AC 06/22 IV 0753 Polyethylene Glycol 17 GM DAILY NEEDED PRN 06/20 1115 AC PO Senna 187 MG AT BEDTIME 06/20 2200 06/20 PO 2139 Simethicone 80 MG Q4P PRN 06/17 2145 AC PO Trazodone HCl 50 MG QPM 06/15 2200 06/21 PO 2115 Trimethobenzamide HCl 200 MG .STK-MED ONE 06/21 1614 DC IM 06/21 1615 Trimethobenzamide HCl 200 MG Q6P PRN 06/16 2345 06/21 IM 1616 Results Pertinent Lab Results: Laboratory Tests 06/22 06/21 0717 0730 Chemistry Sodium (137 - 145 mmol/L) 145 143 Potassium (3.5 - 5.1 mmol/L) 4.0 4.2 Chloride (98 - 107 mmol/L) 100 98 Carbon Dioxide (22 - 30 mmol/L) 29 30 Anion Gap (5 - 16) 16 15 BUN (7 - 17 mg/dL) 2 L 2 L Creatinine (0.5 - 1.0 mg/dL) 0.5 0.5 Estimated GFR (>60 ml/min) > 60 > 60 Glucose (65 - 99 mg/dL) 97 98 Calcium (8.4 - 10.2 mg/dL) 9.5 9.5 Phosphorus (2.5 - 4.5 mg/dL) 4.8 H 4.5 Magnesium (1.6 - 2.3 mg/dL) 1.6 1.7 Total Bilirubin (0.2 - 1.3 mg/dL) 0.6 0.9 Direct Bilirubin (< 0.4 mg/dL) 0.4 0.6 H AST (14 - 36 U/L) 55 H 100 H ALT (9 - 52 U/L) 90 H 118 H Alkaline Phosphatase (<127 U/L) 297 H 381 H Total Protein (6.3 - 8.2 g/dL) 5.8 L Albumin (3.5 - 5.0 g/dL) 3.0 L 3.1 L Amylase (30 - 110 U/L) 447 H Lipase (23 - 300 U/L) 4859 H Hematology CBC w Diff NO MAN DIFF REQ NO MAN DIFF REQ WBC (4.8 - 10.8 /CUMM) 4.8 5.9 RBC (4.20 - 5.40 /CUMM) 3.56 L 3.77 L Hgb (12.0 - 16.0 G/DL) 10.7 L 11.4 L Hct (37 - 47 %) 32.6 L 34.8 L MCV (81.0 - 99.0 FL) 91.6 92.2 MCH (27.0 - 31.0 PG) 30.0 30.1 RDW (11.5 - 14.5 %) 14.3 14.2 Plt Count (130 - 400 /CUMM) 316 308 MPV (7.4 - 10.4 FL) 8.6 8.3 Gran % (42.2 - 75.2 %) 63.4 66.0 Lymphocytes % (20.5 - 51.1 %) 16.4 L 16.5 L Monocytes % (1.7 - 9.3 %) 8.3 9.4 H Eosinophils % (0 - 5 %) 10.0 H 7.7 H Basophils % (0.0 - 2.0 %) 1.9 0.4 Absolute Granulocytes (1.4 - 6.5 /CUMM) 3.0 3.9 Absolute Lymphocytes (1.2 - 3.4 /CUMM) 0.8 L 1.0 L Absolute Monocytes (0.10 - 0.60 /CUMM) 0.4 0.6 Absolute Eosinophils (0.0 - 0.7 /CUMM) 0.5 0.5 Absolute Basophils (0.0 - 0.2 /CUMM) 0.1 0 PUBS MCHC (33.0 - 37.0 G/DL) 32.8 L 32.7 L 06/20 0436 Chemistry Sodium (137 - 145 mmol/L) 136 L Potassium (3.5 - 5.1 mmol/L) 3.8 Chloride (98 - 107 mmol/L) 99 Carbon Dioxide (22 - 30 mmol/L) 23 Anion Gap (5 - 16) 14 BUN (7 - 17 mg/dL) 2 L Creatinine (0.5 - 1.0 mg/dL) 0.5 Estimated GFR (>60 ml/min) > 60 Glucose (65 - 99 mg/dL) 111 H Calcium (8.4 - 10.2 mg/dL) 9.4 Phosphorus (2.5 - 4.5 mg/dL) 4.7 H Magnesium (1.6 - 2.3 mg/dL) 1.4 L Total Bilirubin (0.2 - 1.3 mg/dL) 1.9 H Direct Bilirubin (< 0.4 mg/dL) 1.3 H AST (14 - 36 U/L) 115 H ALT (9 - 52 U/L) 112 H Alkaline Phosphatase (<127 U/L) 315 H Albumin (3.5 - 5.0 g/dL) 3.0 L Hematology CBC w Diff NO MAN DIFF REQ WBC (4.8 - 10.8 /CUMM) 7.2 RBC (4.20 - 5.40 /CUMM) 3.41 L Hgb (12.0 - 16.0 G/DL) 10.3 L Hct (37 - 47 %) 31.4 L MCV (81.0 - 99.0 FL) 91.8 MCH (27.0 - 31.0 PG) 30.2 RDW (11.5 - 14.5 %) 13.8 Plt Count (130 - 400 /CUMM) 285 MPV (7.4 - 10.4 FL) 8.1 Gran % (42.2 - 75.2 %) 72.1 Lymphocytes % (20.5 - 51.1 %) 10.9 L Monocytes % (1.7 - 9.3 %) 10.9 H Eosinophils % (0 - 5 %) 5.8 H Basophils % (0.0 - 2.0 %) 0.3 Absolute Granulocytes (1.4 - 6.5 /CUMM) 5.2 Absolute Lymphocytes (1.2 - 3.4 /CUMM) 0.8 L Absolute Monocytes (0.10 - 0.60 /CUMM) 0.8 H Absolute Eosinophils (0.0 - 0.7 /CUMM) 0.4 Absolute Basophils (0.0 - 0.2 /CUMM) 0 PUBS MCHC (33.0 - 37.0 G/DL) 32.9 L Imaging/Other Studies: FINDINGS: There is intrahepatic and extrahepatic biliary ductal prominence, with the common bile duct measuring up to 1.1 cm in diameter. The dilatation extends proximal to a peripancreatic fluid collection. No convincing choledocholithiasis. Susceptibility artifact from cholecystectomy clips noted. There is redemonstration of multiple peripancreatic fluid collections. The largest collection demonstrates intraluminal debris and measures 7.5 x 6.5 x 7.6 cm; this lesion has increased in size compared to prior CT 06/15/2017. More cephalad, there is a smaller collection without significant intraluminal debris measuring 6.1 x 3.7 x 6.0 cm, which has increased in size and conspicuity compared to prior CT scan. A third cystic lesion inferior to the largest lesion measures 4.7 x 3.6 x 3.7 cm; this demonstrates internal debris. There is mild pancreatic ductal dilatation within the body and tail extending to the larger more complex peripancreatic cyst. There is trace peripancreatic edema. No suspicious hepatic lesion. No evidence of hepatic steatosis. No splenomegaly. The adrenal glands are unremarkable. Redemonstration of a left renal cyst extending exophytically from the anterior upper pole. Bowel gas pattern is nonobstructive. No acute bowel pathology demonstrated. No bulky adenopathy. Trace bilateral pleural fluid. No suspicious osseous signal. IMPRESSION: 1. Three discrete peripancreatic lesions which have increased in size and conspicuity compared to CT scan 06/15/2017 (see tirado images). These may represent pseudocysts. A couple of these lesions demonstrate internal debris. Attention on followup recommended.
--- NOTE | 2017-06-22 14:20 | Patient Discharge Instructions ---
Discharge Instructions General Discharge Information You were seen/treated for: Pancreatitis Pancreatic tissue necrosis without infection Pancreatic pseudocyst Transaminitis Special Instructions: - Please follow up with your Surgeon for outpatien evaluation of your pancreatic pseudocyst within 1-2 week of discharge. - Please follow up with your primary care physician within 1-2 week of discharge. Inform your primary care physician of this admission to [facility]. - Continue your current medications per discharge instructions. - Please watch for these problems: Fever, Chills, Nausea, Vomiting, Shortness of Breath, Productive Cough, Chest Pain/Discomfort, Abdominal Pain, Active Bleeding or Bloody urine/stool. Diet Continue normal diet: Yes Activity Full Activity/No Limits: Yes Acute Coronary Syndrome Inclusion Criteria At DC or during hospital stay patient has or had the following: ACS DIAGNOSIS No Discharge Core Measures Meds if any: Prescribed or Continued at Discharge Meds if any: NOT Prescribed or Continued at Discharge Congestive Heart Failure Inclusion Criteria At DC or during hospital stay patient has or had the following: CHF DIAGNOSIS No Discharge Core Measures Meds if any: Prescribed or Continued at Discharge Meds if any: NOT Prescribed or Continued at Discharge Cerebrovascular accident Inclusion Criteria At DC or during hospital stay patient has or had the following: CVA/TIA Diagnosis No Discharge Core Measures Meds if any: Prescribed or Continued at Discharge Meds if any: NOT Prescribed or Continued at Discharge Venous thromboembolism Inclusion Criteria VTE Diagnosis No VTE Type NONE VTE Confirmed by (Test) NONE Discharge Core Measures - Per Current guidelines, there needs to be overlap - treatment for the first 5 days of Warfarin therapy. - If discharged on Warfarin prior to 5 days of - overlap therapy, the patient will need to be - assessed for post discharge needs including - *Post discharge parental anticoagulation - *Warfarin and/or parental anticoagulation education - *Follow up date to check INR post discharge At least 5 days overlap therapy as Inpatient No Meds if any: Prescribed or Continued at Discharge Note: Overlap Therapy is Warfarin and Anticoagulant Meds if any: NOT Prescribed or Continued at Discharge
--- NOTE | 2017-06-22 14:21 | Discharge Summary ---
Visit Information Visit Dates Admission Date: 06/15/17 Discharge Date: 06/23/17 Hospital Course Course Attending Physician: Bert Monge MD Primary Care Physician: Hermelindo BRUNNER,Faria [facility] Course: Ms. Kwok is a 47 yo F with a history of necrotic pancreatitis, obesity, hypertension, anxiety, DVT on the left LE, hyperlipidemia, recently hospitalized 3 weeks prior to this admission with acute pancreatitis in the setting of cholelithiasis, status post cholecystectomy during the admission and recently discharged from [facility] for necrotic pancreatitis presenting for pancreatitis. She was transferred to the ICU for close monitoring due to tachycardia and pleural effusions. Upon stablization, patient was transferred to General Medicine floor. ER Course: Lipase 4759. amylase 778. CT abd: area of walled off necrosis involving the pancreatic head and neck. Decreasing but persistent adjacent inflammatory changes.Trace bilateral pleural effusions with atelectasis, increased from prior. ECHO demonstrated an EF of 65% , mild left atrial, trace mitral regurgitation enlargement, trace tricuspid regurgitation. CXR demonstrated resolution of trace BL plueral effusions Problem list & Hospital Course: #Pancreatitis w/ necrosis In the ICU patient complained of abdominal tenderness that temporarily subsides with IV Dilaudid. Patient was started on Lactate Ringer solution. ECHO was perfomed to rule out SHD and/or valvular abnormalities for her pleural effusions , and demonstrated an EF of 65%, mild left atrial, trace mitral regurgitation enlargement, trace tricuspid regurgitation. Patient reported at the time of her ECHO she pulled some muscles by trying to guard her abdomen. Over the treatment course, patient's abdominal pain and vomiting subsided but continued to have intermittent nausea, with Zofran as needed. Patient was continued on gentle hydration of lactate ringer, gradual advancement of diet. Her labs showed elevated transaminases and elevated bilirubin not present on admission. GI was informed and an US RUQ was negative for biliary dilatation. An MRCP was done today that demonstrated 1.1 cm intra- and extra- hepatic biliary dilatation warranted no further acute intervention, and pseudocysts >6cm pending outpatient general surgery evaluation within 4-6 weeks. Patient was discharged home with diet advanced to regular without intolerance, and pain free. Patient's lipase remained elevated in the ~4000 however that was likely due to pseudocysts. #Transaminitis/Bilirubinemia 2/2 to biliary dilatation/pancreatitis US RUQ was negative for biliary dilatation. Upon admission, patient's AST/ALT was 25/33, peaked at 118/89, and later trending down 55/90 on latest lab prior discharge. Patient's bilirubinemia was 1.5 on admission, trended down to 0.4 prior discharge. #History of HTN Patient was continued on home dose of amlodpine and metoprolol #History of anxiety Patient was continued on home doses of Cymbalta, Klonopin, trazodone for sleep DVT prophylaxis: Lovenox + ALPs Regular diet Full code Allergies: Coded Allergies: Sulfa (Sulfonamide Antibiotics) (Intermediate, RASH 05/21/17) valsartan (From DIOVAN) (RASH 05/21/17) Pertinent Lab Results: SERVICE DATE: 06/15/17 EXAM TYPE: CAT - CT ABD & PELVIS W IV CONTRAST IMPRESSION: Similar appearance of the pancreas to the previous study, with area of walled off necrosis involving the pancreatic head and neck. Decreasing but persistent adjacent inflammatory changes. Mild prominence of the pancreatic duct is also unchanged. No new fluid collection. Trace bilateral pleural effusions with atelectasis, increased from prior. SERVICE DATE: 06/15/17 EXAM TYPE: RAD - XRY-PORTABLE CHEST XRAY IMPRESSION: Unremarkable examination. SERVICE DATE: 06/16/17- EXAM TYPE: CARD - ECHOCARDIOGRAM CONCLUSIONS 1. Normal EF of 65%. 2. Mild left atrial enlargement. 3. Trace mitral regurgitation. 4. Trace tricuspid regurgitation. SERVICE DATE: 06/19/17- EXAM TYPE: US - US-COMPLETE ABDOMEN IMPRESSION: The liver is diffusely echogenic and sound attenuating consistent with diffuse hepatic steatosis. There is hepatomegaly as well. No biliary ductal dilatation however. Status post cholecystectomy. Ill-defined hypoechogenicity in the region of the pancreatic head is consistent with the previously seen pancreatic fluid collection. If the patient has had pancreatitis for 4+ weeks, this would be a pseudocyst. SERVICE DATE: 06/21/17- EXAM TYPE: MRI - MRI-ABDOMEN IMPRESSION: 1. Three discrete peripancreatic lesions which have increased in size and conspicuity compared to CT scan 06/15/2017 (see tirado images). These may represent pseudocysts. A couple of these lesions demonstrate internal debris. Attention on followup recommended. 2. There is mild intrahepatic and extrahepatic biliary ductal prominence extending to the level of the largest peripancreatic cystic structure. This cystic structure may be causing a degree of obstruction, however the mild biliary ductal prominence is nonspecific status post cholecystectomy. No convincing choledocholithiasis. 3. Mild pancreatic ductal prominence, not significantly changed compared to exam 06/15/2017. Laboratory Tests 06/23 06/22 0800 0717 Chemistry Sodium (137 - 145 mmol/L) 143 145 Potassium (3.5 - 5.1 mmol/L) 3.9 4.0 Chloride (98 - 107 mmol/L) 99 100 Carbon Dioxide (22 - 30 mmol/L) 26 29 Anion Gap (5 - 16) 18 H 16 BUN (7 - 17 mg/dL) 2 L 2 L Creatinine (0.5 - 1.0 mg/dL) 0.5 0.5 Estimated GFR (>60 ml/min) > 60 > 60 BUN/Creatinine Ratio (7 - 25 %) 4.0 L Glucose (65 - 99 mg/dL) 97 Calcium (8.4 - 10.2 mg/dL) 9.5 Phosphorus (2.5 - 4.5 mg/dL) 4.8 H Magnesium (1.6 - 2.3 mg/dL) 1.6 Total Bilirubin (0.2 - 1.3 mg/dL) 0.5 0.6 Direct Bilirubin (< 0.4 mg/dL) 0.4 0.4 AST (14 - 36 U/L) 52 H 55 H ALT (9 - 52 U/L) 88 H 90 H Alkaline Phosphatase (<127 U/L) 291 H 297 H Total Protein (6.3 - 8.2 g/dL) 5.8 L Albumin (3.5 - 5.0 g/dL) 3.1 L 3.0 L Amylase (30 - 110 U/L) 447 H Lipase (23 - 300 U/L) 4859 H Hematology CBC w Diff NO MAN DIFF REQ NO MAN DIFF REQ WBC (4.8 - 10.8 /CUMM) 4.9 4.8 RBC (4.20 - 5.40 /CUMM) 3.49 L 3.56 L Hgb (12.0 - 16.0 G/DL) 10.4 L 10.7 L Hct (37 - 47 %) 31.9 L 32.6 L MCV (81.0 - 99.0 FL) 91.3 91.6 MCH (27.0 - 31.0 PG) 29.8 30.0 RDW (11.5 - 14.5 %) 14.8 H 14.3 Plt Count (130 - 400 /CUMM) 371 316 MPV (7.4 - 10.4 FL) 8.0 8.6 Gran % (42.2 - 75.2 %) 58.6 63.4 Lymphocytes % (20.5 - 51.1 %) 25.8 16.4 L Monocytes % (1.7 - 9.3 %) 8.8 8.3 Eosinophils % (0 - 5 %) 6.1 H 10.0 H Basophils % (0.0 - 2.0 %) 0.7 1.9 Absolute Granulocytes (1.4 - 6.5 /CUMM) 2.9 3.0 Absolute Lymphocytes (1.2 - 3.4 /CUMM) 1.3 0.8 L Absolute Monocytes (0.10 - 0.60 /CUMM) 0.4 0.4 Absolute Eosinophils (0.0 - 0.7 /CUMM) 0.3 0.5 Absolute Basophils (0.0 - 0.2 /CUMM) 0 0.1 PUBS MCHC (33.0 - 37.0 G/DL) 32.7 L 32.8 L Disposition Summary Disposition Principal Diagnosis: Pancreatitis Pancreatic pseudocyst Pancreatic tissue necrosis without infection Nausea/vomiting - resolved Transaminitis Additional Diagnosis: as above Discharge Disposition: home or self care Discharge Instructions General Discharge Information Code Status: Full Code Patient's Diet: Regular Patient's Activity: As tolerated Follow-Up Instructions/Appts: - Please follow up with your Surgeon for outpatient evaluation of your pancreatic pseudocyst within 1-2 week of discharge. - Please follow up with your primary care physician within 1-2 week of discharge. Inform your primary care physician of this admission to [facility]. - Continue your current medications per discharge instructions. - Please watch for these problems: Fever, Chills, Nausea, Vomiting, Shortness of Breath, Productive Cough, Chest Pain/Discomfort, Abdominal Pain, Active Bleeding or Bloody urine/stool. Medications at Discharge Discharge Medications: Stop taking the following medications: Hydromorphone (Hydromorphone HCl) 2 MG/ML VIAL INTRAVEN Every 4 hours as needed for SEVER PAIN Qty = 1 Continue taking these medications: Metoprolol Succinate (Metoprolol Succinate) 100 MG TAB.ER.24H 1 Tablet ORAL DAILY Qty = 30 Comments: Last Taken:06/23/17 Time:0823 Amlodipine Besylate (Amlodipine Besylate) 5 MG TABLET 2 Tablet ORAL DAILY Qty = 30 Comments: Last Taken:06/23/17 Time:0900 Ergocalciferol (Vitamin D2) (Vitamin D2) 50,000 UNIT CAPSULE 1 Capsule ORAL EVERY WEDNESDAY Qty = 4 Comments: Last Taken:06/23/17 Time:08 Montelukast Sodium (Montelukast Sodium) 10 MG TABLET 1 Tablet ORAL DAILY Qty = 30 Comments: Last Taken:06/23/17 Time:08 Trazodone HCl (Trazodone HCl) 50 MG TABLET 1 Tablet ORAL Every night Qty = 30 Comments: Last Taken:06/22/17 Time:2100 Duloxetine HCl (Duloxetine HCl) 60 MG CAPSULE.DR 2 Capsule ORAL DAILY Qty = 60 Comments: Last Taken:06/23/17 Time:08 Clonazepam (Clonazepam) 1 MG TABLET 1 Tablet ORAL 2 x Daily as needed as needed for ANXIETY Qty = 60 Comments: Last Taken:06/23/17 Time:08 Polyethylene Glycol 3350 (Miralax) 17 GRAM/DOSE POWDER 17 Gram ORAL DAILY as needed for CONSTIPATION Qty = 1 Instructions: . Comments: HAS NOT RECEIVED Sennosides/Docusate Sodium (Senna-Time S Tablet) 8.6 MG-50 MG TABLET 187 Milligram ORAL AT BEDTIME as needed for constipation Qty = 30 Instructions: . Comments: HAS NOT RECEIVED Ondansetron (Zofran Odt) 4 MG TAB.RAPDIS 1 Tablet SUBLINGUAL THREE TIMES DAILY as needed for NAUSEA/VOMITING Qty = 20 Comments: Last Taken:06/22/17 Time:08 Copies To: Bienvenido Casarez MD
[2017-06-22 14:46] VITALS: BP 124/76
[2017-06-22 22:14] VITALS: BP 110/68
[2017-06-23 07:05] VITALS: BP 112/64
[2017-06-23 09:28] LABS: ABSOLUTE BASOPHIL COUNT 0 /CUMM (0.0-0.2); ABSOLUTE EOSINOPHIL COUNT 0.3 /CUMM (0.0-0.7); ABSOLUTE GRANULOCYTE CT 2.9 /CUMM (1.4-6.5); ABSOLUTE LYMPH COUNT 1.3 /CUMM (1.2-3.4); ABSOLUTE MONOCYTE COUNT 0.4 /CUMM (0.10-0.60); BASOPHIL % 0.7 % (0.0-2.0); EOSINOPHIL % 6.1 % (0-5); GRANULOCYTE % 58.6 % (42.2-75.2); HEMATOCRIT 31.9 % (37-47); MEAN CORPUSCULAR HGB 29.8 PG (27.0-31.0); MEAN CORPUSCULAR HGB CONC 32.7 G/DL (33.0-37.0); MEAN CORPUSCULAR VOLUME 91.3 FL (81.0-99.0); PLATELET COUNT 371 /CUMM (130-400); RBC DISTRIBUTION WIDTH 14.8 % (11.5-14.5); RED BLOOD CELL CT 3.49 /CUMM (4.20-5.40); WHITE BLOOD CELL COUNT 4.9 /CUMM (4.8-10.8)
--- NOTE | 2017-06-23 09:33 | PN- Gastroenterology ---
Assessment/Plan Assessment/Recommendations: IMPRESSION: 1. MRI/MRCP -- with mild intra and extrahepatic biliary ductal dilatation. No CBD stone visualized. 2. Abnormal Transaminases as well as Elevated Bilirubin and Alkaline Phosphatase -- alk phos trending downwards and generally lags behind other enzymes after passage of a stone. Bilirubin and transaminases normal. 3. Acute Pancreatitis with Walled Off Necrosis -- resolving 4. Morbid Obesity 5. Pancreatic necrosis -- no signs of infection. walled off, but not mature for drainage. MRI shows internal debris. RECOMMENDATIONS: 1. Patient stable for discharge 2. Discussed with patient that she will need to follow up with me as out patient 3. Discussed dietary restrictions after discharge as well as need to call immediately or go to ED for any significant change in clinical condition 4. GI will sign off for now. 5. Patient will call office to schedule appointment for one to two weeks post discharge. Subjective Subjective: Patient tolerating regular diet. Not requiring narcotic analgiesia. Feeling much better. Still with some abdominal pain but had relief with Tylenol. Objective Vital Signs and I&Os Vital Signs Date Time Temp Pulse Resp B/P B/P Pulse O2 O2 Flow FiO2 Mean Ox Delivery Rate 06/23 0823 132/80 06/23 0705 98.6 92 18 112/64 97 06/22 2214 98.6 101 19 110/68 97 Room Air 06/22 1446 98.0 88 20 124/76 97 Room Air Intake & Output 06/23 1600 06/23 0400 06/22 1600 06/22 0400 06/21 1600 06/21 0400 Intake Total 033 110 5506 315 1995 1313 Output Total 1000 100 Balance 544 337 1360 676 927 4061 Intake, IV 021 697 8796 75 1475 913 Intake, Oral 240 790 240 520 400 Number 0 1 0 Bowel Movements Output, Urine 1000 100 Physical Exam General Appearance: well developed/nourished, no apparent distress, alert, awake Head: normal appearance Respiratory: normal breath sounds, lungs clear Cardiovascular: regular rate/rhythm, Normal S1 and S2 without rub, murmur or gallop Abdomen: normal bowel sounds, soft, non-tender Extremities: normal inspection, no edema Neurologic/Psychiatric: oriented x 3, normal mood/affect Skin: intact, normal color, warm/dry Current Medications: Current Medications Sig/Anay Start time Last Medication Dose Route Stop Time Status Admin Acetaminophen 650 MG .STK-MED ONE 06/22 2027 DC PO 06/22 202 Acetaminophen 650 MG Q6P PRN 06/15 1345 AC 06/22 PO 202 Amlodipine Besylate 10 MG DAILY 06/15 1620 AC 06/23 PO 0823 Clonazepam 1 MG BID 06/22 2325 AC 06/23 PO 06/29 2324 0823 Clonazepam 0.5 MG ONCE ONE 06/22 1345 DC 06/22 PO 06/22 1346 1349 Clonazepam 1 MG BID PRN 06/15 1630 DC 06/22 PO 06/22 1629 0926 Docusate Sodium 100 MG DAILY 06/20 1105 AC 06/23 PO 0823 Duloxetine HCl 120 MG DAILY 06/16 1000 AC 06/23 PO 0823 Enoxaparin Sodium 40 MG DAILY 06/16 1055 AC 06/23 SC 0823 Hydromorphone HCl 1 MG ONCE ONE 06/22 2330 DC IV 06/22 2331 Hydromorphone HCl 1 MG Q6P PRN 06/15 1345 DC 06/21 IV 1849 Lactated Ringer's 1,000 ML Q8H 06/15 2300 DC 06/23 IV 0601 Lidocaine 1 PAT DAILY NEEDED PRN 06/20 1115 AC 06/20 EXT 1215 Metoprolol Succinate 100 MG DAILY 06/15 1622 AC 06/23 PO 0823 Morphine Sulfate 2 MG Q6-PRN PRN 06/15 1345 DC 08 IV 1616 Ondansetron HCl 4 MG Q6P PRN 06/15 1415 AC 06/22 IV 0753 Polyethylene Glycol 17 GM DAILY NEEDED PRN 06/20 1115 AC PO Senna 187 MG AT BEDTIME 06/20 2200 AC 06/22 PO 2027 Simethicone 80 MG Q4P PRN 06/17 2145 AC PO Trazodone HCl 50 MG QPM 06/15 2200 AC 06/22 PO 2027 Trimethobenzamide HCl 200 MG .STK-MED ONE 06/22 1641 DC IM 06/22 1642 Trimethobenzamide HCl 200 MG Q6P PRN 06/16 2345 AC 06/22 IM 1645 Results Pertinent Lab Results: Laboratory Tests 06/23 06/22 0800 0717 Chemistry Sodium (137 - 145 mmol/L) Pending 145 Potassium (3.5 - 5.1 mmol/L) Pending 4.0 Chloride (98 - 107 mmol/L) Pending 100 Carbon Dioxide (22 - 30 mmol/L) Pending 29 Anion Gap (5 - 16) Pending 16 BUN (7 - 17 mg/dL) Pending 2 L Creatinine (0.5 - 1.0 mg/dL) Pending 0.5 Estimated GFR (>60 ml/min) > 60 BUN/Creatinine Ratio Pending Glucose (65 - 99 mg/dL) 97 Calcium (8.4 - 10.2 mg/dL) 9.5 Phosphorus (2.5 - 4.5 mg/dL) 4.8 H Magnesium (1.6 - 2.3 mg/dL) 1.6 Total Bilirubin (0.2 - 1.3 mg/dL) Pending 0.6 Direct Bilirubin (< 0.4 mg/dL) Pending 0.4 AST (14 - 36 U/L) Pending 55 H ALT (9 - 52 U/L) Pending 90 H Alkaline Phosphatase (<127 U/L) Pending 297 H Total Protein Pending Albumin (3.5 - 5.0 g/dL) Pending 3.0 L Amylase (30 - 110 U/L) 447 H Lipase (23 - 300 U/L) 4859 H Hematology CBC w Diff Pending NO MAN DIFF REQ WBC (4.8 - 10.8 /CUMM) Pending 4.8 RBC (4.20 - 5.40 /CUMM) Pending 3.56 L Hgb (12.0 - 16.0 G/DL) Pending 10.7 L Hct (37 - 47 %) Pending 32.6 L MCV (81.0 - 99.0 FL) Pending 91.6 MCH (27.0 - 31.0 PG) Pending 30.0 RDW (11.5 - 14.5 %) Pending 14.3 Plt Count (130 - 400 /CUMM) Pending 316 MPV (7.4 - 10.4 FL) Pending 8.6 Gran % (42.2 - 75.2 %) 63.4 Lymphocytes % (20.5 - 51.1 %) 16.4 L Monocytes % (1.7 - 9.3 %) 8.3 Eosinophils % (0 - 5 %) 10.0 H Basophils % (0.0 - 2.0 %) 1.9 Absolute Granulocytes (1.4 - 6.5 /CUMM) 3.0 Absolute Lymphocytes (1.2 - 3.4 /CUMM) 0.8 L Absolute Monocytes (0.10 - 0.60 /CUMM) 0.4 Absolute Eosinophils (0.0 - 0.7 /CUMM) 0.5 Absolute Basophils (0.0 - 0.2 /CUMM) 0.1 PUBS MCHC (33.0 - 37.0 G/DL) Pending 32.8 L 06/21 729 Chemistry Sodium (137 - 145 mmol/L) 143 Potassium (3.5 - 5.1 mmol/L) 4.2 Chloride (98 - 107 mmol/L) 98 Carbon Dioxide (22 - 30 mmol/L) 30 Anion Gap (5 - 16) 15 BUN (7 - 17 mg/dL) 2 L Creatinine (0.5 - 1.0 mg/dL) 0.5 Estimated GFR (>60 ml/min) > 60 Glucose (65 - 99 mg/dL) 98 Calcium (8.4 - 10.2 mg/dL) 9.5 Phosphorus (2.5 - 4.5 mg/dL) 4.5 Magnesium (1.6 - 2.3 mg/dL) 1.7 Total Bilirubin (0.2 - 1.3 mg/dL) 0.9 Direct Bilirubin (< 0.4 mg/dL) 0.6 H AST (14 - 36 U/L) 100 H ALT (9 - 52 U/L) 118 H Alkaline Phosphatase (<127 U/L) 381 H Total Protein (6.3 - 8.2 g/dL) 5.8 L Albumin (3.5 - 5.0 g/dL) 3.1 L Hematology CBC w Diff NO MAN DIFF REQ WBC (4.8 - 10.8 /CUMM) 5.9 RBC (4.20 - 5.40 /CUMM) 3.77 L Hgb (12.0 - 16.0 G/DL) 11.4 L Hct (37 - 47 %) 34.8 L MCV (81.0 - 99.0 FL) 92.2 MCH (27.0 - 31.0 PG) 30.1 RDW (11.5 - 14.5 %) 14.2 Plt Count (130 - 400 /CUMM) 308 MPV (7.4 - 10.4 FL) 8.3 Gran % (42.2 - 75.2 %) 66.0 Lymphocytes % (20.5 - 51.1 %) 16.5 L Monocytes % (1.7 - 9.3 %) 9.4 H Eosinophils % (0 - 5 %) 7.7 H Basophils % (0.0 - 2.0 %) 0.4 Absolute Granulocytes (1.4 - 6.5 /CUMM) 3.9 Absolute Lymphocytes (1.2 - 3.4 /CUMM) 1.0 L Absolute Monocytes (0.10 - 0.60 /CUMM) 0.6 Absolute Eosinophils (0.0 - 0.7 /CUMM) 0.5 Absolute Basophils (0.0 - 0.2 /CUMM) 0 PUBS MCHC (33.0 - 37.0 G/DL) 32.7 L
--- NOTE | 2017-06-23 10:38 | PN- Housestaff ---
Elenita Andres 06/23/17 1038: Subjective Follow-up For: Pancreatitis Pancreatic pseudocysts Nausea/vomiting - resolved Transaminitis Subjective: No overnight event. Patient was in tears on phone when I entered due to family issues. Patient felt much improved on physical symptoms without pain and would like to try solid foods this AM. Patient would like to go home today if feasible. Review of Systems Constitutional: Reports: see HPI. Objective Last 24 Hrs of Vital Signs/I&O Vital Signs Date Time Temp Pulse Resp B/P B/P Pulse O2 O2 Flow FiO2 Mean Ox Delivery Rate 06/23 0823 132/80 06/23 0705 98.6 92 18 112/64 97 06/22 2214 98.6 101 19 110/68 97 Room Air 06/22 1446 98.0 88 20 124/76 97 Room Air Intake & Output 06/23 1600 06/23 0800 06/23 0000 Intake Total 225 840 Output Total Balance 225 840 Intake, IV 225 600 Intake, Oral 240 Physical Exam General Appearance: Alert, Oriented X3, Cooperative, No Acute Distress Cardiovascular: Regular Rate Lungs: Clear to Auscultation, Normal Air Movement Abdomen: Normal Bowel Sounds, Soft, No Tenderness Neurological: Normal Speech Extremities: Normal Pulses, trace edema Current Medications: Current Medications Sig/Anay Start time Last Medication Dose Route Stop Time Status Admin Acetaminophen 650 MG .STK-MED ONE 06/22 2027 DC PO 06/22 2028 Acetaminophen 650 MG Q6P PRN 06/15 1345 AC 06/22 PO 2028 Amlodipine Besylate 10 MG DAILY 06/15 1620 AC 06/23 PO 0823 Clonazepam 1 MG BID 06/22 2325 AC 06/23 PO 06/29 2324 0823 Clonazepam 0.5 MG ONCE ONE 06/22 1345 DC 06/22 PO 06/22 1346 1349 Clonazepam 1 MG BID PRN 06/15 1630 DC 06/22 PO 06/22 1629 0926 Docusate Sodium 100 MG DAILY 06/20 1105 AC 06/23 PO 0823 Duloxetine HCl 120 MG DAILY 06/16 1000 AC 06/23 PO 0823 Enoxaparin Sodium 40 MG DAILY 06/16 1055 AC 06/23 SC 0823 Hydromorphone HCl 1 MG ONCE ONE 06/22 2330 DC IV 06/22 2331 Hydromorphone HCl 1 MG Q6P PRN 06/15 1345 DC 06/21 IV 1849 Lactated Ringer's 1,000 ML Q8H 06/15 2300 DC 06/23 IV 0601 Lidocaine 1 PAT DAILY NEEDED PRN 06/20 1115 AC 06/20 EXT 1215 Metoprolol Succinate 100 MG DAILY 06/15 1622 AC 06/23 PO 0823 Morphine Sulfate 2 MG Q6-PRN PRN 06/15 1345 DC 06/21 IV 1616 Ondansetron HCl 4 MG Q6P PRN 06/15 1415 AC 06/22 IV 0753 Polyethylene Glycol 17 GM DAILY NEEDED PRN 06/20 1115 AC PO Senna 187 MG AT BEDTIME 06/20 2200 AC 06/22 PO 2028 Simethicone 80 MG Q4P PRN 06/17 2145 AC PO Trazodone HCl 50 MG QPM 06/15 2200 AC 06/22 PO 2028 Trimethobenzamide HCl 200 MG .STK-MED ONE 06/22 1641 DC IM 06/22 1642 Trimethobenzamide HCl 200 MG Q6P PRN 06/16 2345 AC 06/22 IM 1645 Last 24 Hrs of Lab/Dangelo Results Last 24 Hrs of Labs/Mics: Laboratory Tests 06/23/17 0800: Anion Gap 18 H, Estimated GFR > 60, BUN/Creatinine Ratio 4.0 L, Total Bilirubin 0.5, Direct Bilirubin 0.4, AST 52 H, ALT 88 H, Alkaline Phosphatase 291 H, Total Protein 5.8 L, Albumin 3.1 L, CBC w Diff NO MAN DIFF REQ, RBC 3.49 L, MCV 91.3, MCH 29.8, RDW 14.8 H, MPV 8.0, Gran % 58.6, Lymphocytes % 25.8, Monocytes % 8.8, Eosinophils % 6.1 H, Basophils % 0.7, Absolute Granulocytes 2.9, Absolute Lymphocytes 1.3, Absolute Monocytes 0.4, Absolute Eosinophils 0.3, Absolute Basophils 0, PUBS MCHC 32.7 L Assessment/Plan Assessment: Ms. Kwok is a 47 yo F with a history of necrotic pancreatitis, obesity, hypertension, anxiety, DVT on the left LE, hyperlipidemia, recently hospitalized 3 weeks prior to this admission with acute pancreatitis in the setting of cholelithiasis, status post cholecystectomy during the admission and recently discharged from [place] for necrotic pancreatitis presenting for pancreatitis. She was transferred to the ICU for close monitoring due to tachycardia and pleural effusions. Pancreatitis Lipase 4759. amylase 778. -> 4859/447 CT abd: area of walled off necrosis involving the pancreatic head and neck. Decreasing but persistent adjacent inflammatory changes.Trace bilateral pleural effusions with atelectasis, increased from prior. ECHO demonstrated an EF of 65% , mild left atrial, trace mitral regurgitation enlargement, trace tricuspid regurgitation. CXR demonstrated resolution of trace BL plueral effusions * Continue Lactated Ringer at 75cc/h to avoid fluid overload, encourage patient to increase PO intake if possible * Tigan/Zofran prn nausea, protonix prophylaxis * ID recommendations appreciated * GI recommendations appreciated Transaminitis/Bilirubinemia US RUQ was negative for biliary dilatation. * Monitor liver function, trending down 55/90 on latest lab - MRCP 06/21: 1. Three discrete peripancreatic lesions which have increased in size and conspicuity compared to CT scan 06/15/2017 (see tirado images). These may represent pseudocysts. A couple of these lesions demonstrate internal debris. Attention on followup recommended. 2. There is mild intrahepatic and extrahepatic biliary ductal prominence extending to the level of the largest peripancreatic cystic structure. This cystic structure may be causing a degree of obstruction, however the mild biliary ductal prominence is nonspecific status post cholecystectomy. No convincing choledocholithiasis. 3. Mild pancreatic ductal prominence, not significantly changed compared to exam 06/15/2017. - Gen Surge consult recommended observation for pseudocyst and may need serial CT imaging for follow up and outpatient evaluation by Dr. Soriano (who performed lap shay) or Dr. Laguna. History of HTN * cont amlodpine and metoprolol History of anxiety * cont Cymbalta, Klonopin, trazodone for sleep Diet: Clear liquid advancing to full liquid DVT prophylaxis: Lovenox Full code Problem List: 1. Status post laparoscopic cholecystectomy 2. Pseudocyst of pancreas Pain Ratin Pain Location: NA Pain Goal: Remain pain free Pain Plan: See ap Tomorrow's Labs & Rationales: NA Bret Monge 06/23/17 1101: Attending MD Review Statement Attending Statement Attending MD Statement: examined this patient, discuss w/resident/PA/TECHNICAL LEAD, agreed w/resident/PA/TECHNICAL LEAD, discussed with family, reviewed EMR data (avail), discussed with nursing, discussed with case mgmt, reviewed images, amended to note Attending Assessment/Plan: 47 o/f with acute pancreatitis recently transferred to [place] for possible aspiration of pancreatic wall on CT but managed conservatively and discharged to home, however patient symptoms did not improve with persistent nasuea so she decided to come to ER. Labs with improvement in LFTs. Patient seen/examined bedside. Patient denies any new complaints. She is taking pain meds but less. She is having good urine output. Her epigastric tenderness+ better. MRCP noted with no visualised stone. GI and ID consulted for pancreatic necrosis. c/w pain control, prn nausea meds, Diet/Nutrition plan as per GI. Patient tolerated PO diet. Abx (monitor off) as per ID. RUQ USG with no ductal dilation as per GI. MRCP with no stones however biliary dilation + which is extending upto psuedocyst. General surgery consulted and recommend conservative management. avoid medications which can cause pancreatitis. Plan of care d.wed patient bedside. Advise diet. DISCHARGE DIAGNOSIS 1. Gallstone induced pancreatitis with passed stone 2. Pseudocyst large with internal debris 3. Acute pancreatitis with complications 4. Pancreatitis with thickened wall necrosis 5. Elevated LFTS and alkaline phosphatase. 6. Abdominal pain. 7. S/P cholecystectomy. CONSULTANTS Gastroenterology Dr Canela follow in 1-2 weeks of discharge. General surgery Dr Laguna in 1-2 weeks of discharge for outpatient f/u of psuedocyst. Infectious disease Dr Alanis FOLLOW UP PCP in 3-5 days as above.
--- NOTE | 2017-06-23 14:06 | PN- Infect Dx ---
Subjective Subjective: Afebrile. She continues to report mild nausea and mild abdominal discomfort. She has tolerated a full liquid diet but has not yet advanced to a regular diet. Objective Last 24 Hrs of Vital Signs/I&O Vital Signs Date Time Temp Pulse Resp B/P B/P Pulse O2 O2 Flow FiO2 Mean Ox Delivery Rate 06/23 08 132/80 06/23 0705 98.6 92 18 112/64 97 06/22 2214 98.6 101 19 110/68 97 Room Air 06/22 1446 98.0 88 20 124/76 97 Room Air Intake & Output 06/23 1600 06/23 0800 06/23 0000 Intake Total 555 225 840 Output Total Balance 555 225 840 Intake, IV 75 225 600 Intake, Oral 480 240 Number 0 Bowel Movements Physical Exam Other Physical Findings: She appears comfortable in no acute distress Abdomen is obese, soft, tender on palpation of the epigastrium, with no guarding or rebound, positive bowel sounds Results Last 24 Hours of Lab Results: Laboratory Tests 06/23 08 Chemistry Sodium (137 - 145 mmol/L) 143 Potassium (3.5 - 5.1 mmol/L) 3.9 Chloride (98 - 107 mmol/L) 99 Carbon Dioxide (22 - 30 mmol/L) 26 Anion Gap (5 - 16) 18 H BUN (7 - 17 mg/dL) 2 L Creatinine (0.5 - 1.0 mg/dL) 0.5 Estimated GFR (>60 ml/min) > 60 BUN/Creatinine Ratio (7 - 25 %) 4.0 L Total Bilirubin (0.2 - 1.3 mg/dL) 0.5 Direct Bilirubin (< 0.4 mg/dL) 0.4 AST (14 - 36 U/L) 52 H ALT (9 - 52 U/L) 88 H Alkaline Phosphatase (<127 U/L) 291 H Total Protein (6.3 - 8.2 g/dL) 5.8 L Albumin (3.5 - 5.0 g/dL) 3.1 L Hematology CBC w Diff NO MAN DIFF REQ WBC (4.8 - 10.8 /CUMM) 4.9 RBC (4.20 - 5.40 /CUMM) 3.49 L Hgb (12.0 - 16.0 G/DL) 10.4 L Hct (37 - 47 %) 31.9 L MCV (81.0 - 99.0 FL) 91.3 MCH (27.0 - 31.0 PG) 29.8 RDW (11.5 - 14.5 %) 14.8 H Plt Count (130 - 400 /CUMM) 371 MPV (7.4 - 10.4 FL) 8.0 Gran % (42.2 - 75.2 %) 58.6 Lymphocytes % (20.5 - 51.1 %) 25.8 Monocytes % (1.7 - 9.3 %) 8.8 Eosinophils % (0 - 5 %) 6.1 H Basophils % (0.0 - 2.0 %) 0.7 Absolute Granulocytes (1.4 - 6.5 /CUMM) 2.9 Absolute Lymphocytes (1.2 - 3.4 /CUMM) 1.3 Absolute Monocytes (0.10 - 0.60 /CUMM) 0.4 Absolute Eosinophils (0.0 - 0.7 /CUMM) 0.3 Absolute Basophils (0.0 - 0.2 /CUMM) 0 PUBS MCHC (33.0 - 37.0 G/DL) 32.7 L Last 24 Hours of Dangelo Results: No new cultures Recent Imaging Studies: MRI of the abdomen June 21 reveals 3 discrete peripancreatic lesions which have increased in size compared to her CT scan, which may represent pseudocysts; mild intrahepatic and extra hepatic biliary ductal prominence, with no choledocholithiasis Assessment/Plan Impression: Recurrent pancreatitis, possibly secondary to choledocholithiasis, with her MRI revealing mild intrahepatic and extrahepatic biliary ductal dilatation, though with no evidence of choledocholithiasis. Her liver enzymes are slowly decreasing, but her lipase has increased, raising concern for ongoing inflammation of the pancreas. She does remain afebrile with a normal white blood cell count, making infection of her necrotizing pancreatitis less likely, though this remains a concern. Suggestion: 1. Further management of her pancreatitis per GI 2. Continue to follow off antibiotics
[2017-06-23 14:23] VITALS: BP 124/82
== END 2017-06-23 18:30 | DRG 439 ==
LOC: ERH 07:29 → ERHI 13:10 → CRI 13:10 → ENRESERV 14:31 → ENTRNSPT 14:57 → 2NB 15:45 → CMPTRNSPT 15:59 → CRI 21:41 → ENTRNSPT 06-21 18:19 → CMPTRNSPT 06-21 18:51 → 2NB 06-21 19:00 → ENPENDDIS 06-23 12:02 → ENTRNSPT 06-23 18:05 → 2NB 06-23 18:30 → CMPTRNSPT 06-23 18:43
PROVIDERS: Internal Medicine; Physician Assistant Medical; Student in an Organized Health Care Education/Training Program
DX: K85.91 Acute pancreatitis with uninfected necrosis, unspecified (principal); Z68.42 Body mass index [BMI] 45.0-49.9, adult; J90 Pleural effusion, not elsewhere classified; E66.01 Morbid (severe) obesity due to excess calories; I36.1 Nonrheumatic tricuspid (valve) insufficiency; K86.3 Pseudocyst of pancreas; I10 Essential (primary) hypertension; R00.0 Tachycardia, unspecified; Z86.718 Personal history of other venous thrombosis and embolism; R74.0 Nonspecific elevation of levels of transaminase and lactic acid dehydrogenase [LDH]; J45.909 Unspecified asthma, uncomplicated; G47.33 Obstructive sleep apnea (adult) (pediatric); E78.5 Hyperlipidemia, unspecified; I34.0 Nonrheumatic mitral (valve) insufficiency; F32.9 Major depressive disorder, single episode, unspecified; F41.0 Panic disorder [episodic paroxysmal anxiety]
CPT/HCPCS: 2NBSP; 74181; CCU; 36415; 71045; 74177; 82436; 87040; 93005; 93010; 93306; 96361; 96374; 96375; J1650; J2405; J3250; J7120; J7508

== ENCOUNTER 2017-07-18 12:00 | Inpatient (IN) | payer OTHER ==
[~2017-07-18] VITALS: Ht 157.5 cm; Wt 110.7 kg
[~2017-07-18 12:00] MED LIST changes: +ZOFRAN ODT4 M1 SL
--- NOTE | 2017-07-18 12:23 | ED GI/GU/ABDOMINAL COMPLAINT ---
History of Present Illness General Chief Complaint: Abdominal Pain/Flank Pain Stated Complaint: SENT BY JORDAN PANCREATITIS Source: patient, family, old records Exam Limitations: no limitations Vital Signs & Intake/Output Vital Signs & Intake/Output Vital Signs Date Time Temp Pulse Resp B/P B/P Pulse O2 O2 Flow FiO2 Mean Ox Delivery Rate 07/18 1802 98.9 110 18 120/72 95 Room Air 07/18 1624 99.2 112 18 126/70 94 Room Air 07/18 1623 99.2 07/18 1547 100.6 07/18 1447 100.5 126 12 135/77 95 Room Air 07/18 1445 Room Air 07/18 1205 99.9 150 20 134/98 97 Room Air Allergies Coded Allergies: Sulfa (Sulfonamide Antibiotics) (Intermediate, RASH 05/21/17) valsartan (From DIOVAN) (RETAIN WATER PER PT 07/18/17) Reconcile Medications Amlodipine Besylate 5 MG TABLET 2 TAB PO DAILY BP (Reported) Clonazepam 1 MG TABLET 1 TAB PO BIDP PRN ANXIETY (Reported) Duloxetine HCl 60 MG CAPSULE.DR 2 CAP PO DAILY MENTAL HEALTH/NERVE PAIN ( Reported) Ergocalciferol (Vitamin D2) (Vitamin D2) 50,000 UNIT CAPSULE 1 CAP PO QWED SUPPLEMENT (Reported) Gabapentin (Unknown Strength) CAPSULE (Unknown Dose) UNKNOWN (Reported) Metoprolol Succinate 100 MG TAB.ER.24H 1 TAB PO DAILY HEART/BP (Reported) Montelukast Sodium 10 MG TABLET 1 TAB PO DAILY ALLERGIES (Reported) Oxycodone HCl 5 MG TABLET 1 TAB PO Q4H PRN PAIN (Reported) Pantoprazole Sodium 40 MG TABLET.DR 1 TAB PO DAILY GI (Reported) Promethazine HCl 25 MG TABLET 1 TAB PO AD PRN N/V (Reported) Trazodone HCl 50 MG TABLET 1-2 TAB PO QPM SLEEP (Reported) Triage Note: PT TO ED C/O ABD PAIN AND FEVERS. PT HAS BEEN HAVING ONGOING ABD PAIN SINCE LAP [facility]A IN MAY 2017. PT STATES FEVER THIS AM. TEMP 99.9 IN TRIAGE. Triage Nurses Notes Reviewed? yes ? N Is pt currently ? No Onset: Gradual Duration: week(s): Timing: recent history Quality/Severity: burning, sharpness, severe Location: epigastric Radiation: back Prior Abdominal Problems: similar symptoms HPI: 47yo female with hx of pancreatitis following cholecystectomy in 05/[address] Cordoba for evaluation of worsening pain. Patient reports that she has had persistent epigastric pain since being diagnosed with pancreatitis. Patient was admitted in June for pancreatitis and reports that at discharge she still had persistent pain. Today patient was experiencing increasing nausea and could not tolerate her home pain medication. Patient also reporting steadily increasing fever at home, temperature was as high as 102.4F at home. Pain described as epigastric, severe, burning/stabbing, radiating to her back. Pain is in same location as previous abdominal pain. Patient reports that she spoke with Dr. Cordoba over the phone who instructed her to come here to the emergency department for further evaluation. Patient has had no episodes of vomiting since discharge in June. Patient was tolerating PO yesterday however has not been able to eat anything today. (Sara MITCHELL,Bryanna Lopez) Past History Travel History Traveled to [place] past 21 day No Medical History Any Pertinent Medical History? see below for history Neurological: NONE EENT: Lasik surgery Cardiovascular: hypertension, hyperlipidemia Respiratory: asthma, obstructive sleep apnea Gastrointestinal: pancreatitis Hepatic: ? 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 Age 67. MOTHER, , Age 34; Cause: MVA (motor vehicle accident). PGA, , Age 85; Cause: Colon cancer. Relation not specified for: *No pertinent family history Hx Contributory? No (Bryanna Alston) Review of Systems Review of Systems Constitutional: Reports: see HPI. EENTM: Reports: no symptoms. Respiratory: Reports: no symptoms. Cardiovascular: Reports: no symptoms. GI: Reports: see HPI. Genitourinary: Reports: no symptoms. Musculoskeletal: Reports: no symptoms. Skin: Reports: no symptoms. Neurological/Psychological: Reports: no symptoms. Hematologic/Endocrine: Reports: no symptoms. Immunologic/Allergic: Reports: no symptoms. All Other Systems: Reviewed and Negative (Sara MITCHELL,Bryanna Lopez) Physical Exam Physical Exam General Appearance: well developed/nourished, no apparent distress, alert, awake Head: atraumatic, normal appearance Eyes: Bilateral: normal appearance. Ears, Nose, Throat, Mouth: hearing grossly normal Neck: normal inspection, supple, full range of motion Respiratory: normal breath sounds, no respiratory distress, lungs clear Cardiovascular: tachycardia Gastrointestinal: normal bowel sounds, soft, no organomegaly, RLQ tenderness, LLQ tenderness, epigastric tenderness +gaurding, no ecchymosis Back: normal inspection, normal range of motion Extremities: normal range of motion Neurologic/Psych: awake, alert, oriented x 3 Skin: intact, normal color, warm/dry Core Measures ACS in differential dx? No Sepsis Present: No Sepsis Focused Exam Completed? No (Bryanna Alston) Progress Differential Diagnosis: biliary colic, bowel obstruction, diverticulitis, gastritis, hepatitis, hernia, inflamm bowel dis, pancreatitis, peptic ulcer, PUD /GERD, SBO Plan of Care: Orders Procedure Date/time Status Nothing by Mouth 07/19 B Active Patient Data 07/18 1835 Active Add-on Test (ER Only) 07/18 1703 Active EKG 07/18 1702 Active OXYGEN SETUP (GEN) 07/18 1657 Active Saline Lock 07/18 1657 Active Admit to inpatient 07/18 1657 Active Vital Signs 07/18 1657 Active Activity/Ambulation 07/18 1657 Active Code Status 07/18 1657 Active Add-on Test (ER Only) 07/18 1421 Active TROPONIN LEVEL 07/18 1231 Complete HUMAN BETA HCG SCREEN 07/18 1231 Complete LIPASE 07/18 1223 Complete LACTIC ACID 07/18 1223 Complete COMPREHENSIVE METABOLIC PANEL 07/18 1223 Complete CBC WITHOUT DIFFERENTIAL 07/18 1223 Complete AMYLASE 07/18 1223 Complete Laboratory Tests 07/18/17 1523: Lactic Acid Cancelled 07/18/17 1231: Anion Gap 19 H, Estimated GFR > 60, BUN/Creatinine Ratio 10.0, Glucose 123 H, Lactic Acid 1.3, Calcium 9.1, Total Bilirubin 0.5, AST 20, ALT 31, Alkaline Phosphatase 170 H, Troponin I < 0.01, Total Protein 6.2 L, Albumin 3.2 L, Globulin 3.0, Albumin/Globulin Ratio 1.1, Amylase 1016 H, Lipase 5577 H, Total Beta HCG NEGATIVE, CBC w Diff NO MAN DIFF REQ, RBC 4.25, MCV 85.7, MCH 28.2, MCHC 32.9 L, RDW 14.7 H, MPV 7.3 L, Gran % 89.3 H, Lymphocytes % 7.0 L, Monocytes % 2.6, Eosinophils % 1.1, Basophils % 0, Absolute Granulocytes 11.5 H , Absolute Lymphocytes 0.9 L, Absolute Monocytes 0.3, Absolute Eosinophils 0.1, Absolute Basophils 0 CT scan shows some worsening inflammatory changes around the pancreas however no worsening necrosis or fluid. Patient has increasing lipase and amylase compared to prior labs. Patient also with increasing leukocytosis compared to old studies. Patient febrile here in the emergency department and medicated with IV acetaminophen. Patient's pancreatitis is worsening. This patient was discussed with leather case finisher, Dr. Cordoba. He recommends hospital admission for IV fluids. This patient requires IV fluids, repeat labs, IV pain medication, GI consult, IV antiemetics. Premature discharge would be medically unsafe. Spoke with hospitalist regarding this patient's general medicine admission. Diagnostic Imaging: Viewed by Me: CT Scan. Discussed w/RAD: CT Scan. Radiology Impression: PATIENT: CR VASQUEZ PRESENT AGE: 47 PATIENT ACCOUNT NO: [id number] : 72 LOCATION: [facility] ORDERING PHYSICIAN: Bryanna MITCHELL SERVICE DATE: 07/18/17 EXAM TYPE: CAT - CT ABD & PELVIS W IV CONTRAST EXAMINATION: CT ABDOMEN AND PELVIS WITH CONTRAST CLINICAL INFORMATION: Assess pancreatitis free fluid, worsening necrosis. COMPARISON: Multiple prior imaging examinations including MRI 2017 ultrasound of the abdomen 06/19/[address] dated 06/15/2017. TECHNIQUE: Multidetector volumetric imaging was performed of the abdomen and pelvis following IV administration of 94 mL of Omnipaque 300 intravenous contrast. Sagittal and coronal reformatted images were obtained on the technologist's workstation. DLP: 1191.47 mGy-cm FINDINGS: LUNG BASES: Minimal posterior atelectasis right base. Right pleural effusion previously noted has cleared. Minimal left posterior discoid atelectasis. Trace pleural effusion unchanged. LIVER, GALLBLADDER, AND BILIARY TREE: Liver normal. Status post cholecystectomy. PANCREAS: There is a persistent lobulated cystic collection within the body and head of the pancreas which I suspect reflects a single lobulated cyst rather than separate cysts as was suggested on the prior MRI. The cystic collection appears to be slightly decreased in size best appreciated on the axial image with the AP diameter measuring 3.9 cm previously 5.5 cm. The craniocaudal extent measures 10 cm previously measuring 12 cm. Transverse diameter measures up to 4.8 cm previously 6.4 cm. There is however increased peripancreatic fluid/ inflammatory change compared with the prior CT 06/15/2017. This is difficult to assess with certainty compared with the most recent MRI. Overall I suspect this may have also increased since the MRI 06/21/2017. There is persistent fluid and inflammatory change tracking along Gerota's fascia more distally in the abdomen most evident on the right side. Similar fluid also tracking along the right paracolic gutter similar to prior. There is minimal prominence of the pancreatic duct similar to prior. Enhancement of the pancreas remains unchanged compared to prior. SPLEEN: Unremarkable. ADRENAL GLANDS: Unremarkable. KIDNEYS AND URETERS: Left upper pole simple cyst unchanged. BLADDER: Unremarkable. GASTROINTESTINAL TRACT: Persistent mild wall thickening of the duodenum likely reactive to the pancreatic inflammatory change, unchanged. Otherwise unremarkable. ABDOMINAL WALL: No significant hernia is appreciated. LYMPH NODES: Normal. VASCULAR: Unremarkable. PELVIC VISCERA: Unremarkable. OSSEOUS STRUCTURES: Degenerative disc changes at L5-S1 unchanged. IMPRESSION: No suspected new areas of pancreatic necrosis. Lobulated pancreatic cystic collection has decreased slightly in size compared with the MRI 06/21/2017. However the immediately generalized surrounding inflammatory change may have increased slightly but without any new discrete fluid collection. Additional findings including left renal cyst and degenerative disc disease unchanged. DICTATED BY: Cedric Boo MD DATE/TIME DICTATED:07/18/171524 FIRE ALARM DISPATCHER:KIMBERLY DATE/TIME TRANSCRIBED:07/18/171524 CONFIDENTIAL, DO NOT COPY WITHOUT APPROPRIATE AUTHORIZATION. <Electronically signed in Other Vendor System> SIGNED BY: Cedric Boo MD 07/18/17 4657 Initial ED EKG: sinus tachycardia @115bpm, nonspecific ST changes Prior EKG: unchanged (06/15/17) (Sara MITCHELL,Bryanna Lopez) Departure Departure Disposition: STILL A PATIENT Condition: Stable Clinical Impression Primary Impression: Pancreatitis Referrals: Bienvenido Casarez MD (PCP/Family) Departure Forms: Customer Survey General Discharge Information Admission Note Spoke With: Janene Marin MD Documentation of Exam: Documentation of any treatments & extenuating circumstances including Concerns Regarding Discharge (functional status, medication knowledge or non-compliance, living conditions, etc.) that warrant an admission rather than observation: [ Worsening pancreatitis with increasing pancreatic enzymes, leukocytosis, fever, patient requiring IV fluids, IV pain medication, antiemetics, gastroenterology consult, premature discharge would be medically unsafe, it is unlikely that her medical condition will substantially improved within 2 days.] (Sara MITCHELL,Bryanna Lopez) PA/PARTS INSPECTOR Co-Sign Statement Statement: ED Attending supervision documentation- x I saw and evaluated the patient. I have also reviewed all the pertinent lab results and diagnostic results. I agree with the findings and the plan of care as documented in the PA's/PARTS INSPECTOR's documentation. N/V, abd pain, labs and CT with recurrent pancreatitis [] I have reviewed the ED Record and agree with the PA's/PARTS INSPECTOR's documentation. [] Additions or exceptions (if any) to the PAs/PARTS INSPECTOR's note and plan are summarized below: [] (Kandy BRUNNER,Glen)
[2017-07-18 12:39] LABS: ABSOLUTE BASOPHIL COUNT 0 /CUMM (0.0-0.2); ABSOLUTE EOSINOPHIL COUNT 0.1 /CUMM (0.0-0.7); ABSOLUTE GRANULOCYTE CT 11.5 /CUMM (1.4-6.5); ABSOLUTE LYMPH COUNT 0.9 /CUMM (1.2-3.4); ABSOLUTE MONOCYTE COUNT 0.3 /CUMM (0.10-0.60); BASOPHIL % 0 % (0.0-2.0); EOSINOPHIL % 1.1 % (0-5); HEMATOCRIT 36.4 % (37-47); MEAN CORPUSCULAR HGB 28.2 PG (27.0-31.0); MEAN CORPUSCULAR HGB CONC 32.9 G/DL (33.0-37.0); MEAN CORPUSCULAR VOLUME 85.7 FL (81.0-99.0); MEAN PLATELET VOLUME 7.3 FL (7.4-10.4); PLATELET COUNT 510 /CUMM (130-400); RBC DISTRIBUTION WIDTH 14.7 % (11.5-14.5); RED BLOOD CELL CT 4.25 /CUMM (4.20-5.40); WHITE BLOOD CELL COUNT 12.9 /CUMM (4.8-10.8)
[2017-07-18] MEDS ORDERED: OXYCODONE HCL5 M1 PO (12:48)
[2017-07-18] MEDS ORDERED: GABAPENTIN100 M2 (12:48)
[2017-07-18] MEDS ORDERED: PROMETHAZINE HC25 M3 PO (12:49)
[2017-07-18] MEDS ORDERED: PANTOPRAZOLE SO40 M1 PO (12:49)
[2017-07-18 13:01] LABS: GRANULOCYTE % 89.3 % (42.2-75.2)
--- NOTE | 2017-07-18 16:04 | CT SCAN REPORT ---
EXAMINATION: CT ABDOMEN AND PELVIS WITH CONTRAST CLINICAL INFORMATION: Assess pancreatitis free fluid, worsening necrosis. COMPARISON: Multiple prior imaging examinations including MRI 06/21/2017 ultrasound of the abdomen 06/19/[address] dated 06/15/2017. TECHNIQUE: Multidetector volumetric imaging was performed of the abdomen and pelvis following IV administration of 94 mL of Omnipaque 300 intravenous contrast. Sagittal and coronal reformatted images were obtained on the technologist's workstation. DLP: 1191.47 mGy-cm FINDINGS: LUNG BASES: Minimal posterior atelectasis right base. Right pleural effusion previously noted has cleared. Minimal left posterior discoid atelectasis. Trace pleural effusion unchanged. LIVER, GALLBLADDER, AND BILIARY TREE: Liver normal. Status post cholecystectomy. PANCREAS: There is a persistent lobulated cystic collection within the body and head of the pancreas which I suspect reflects a single lobulated cyst rather than separate cysts as was suggested on the prior MRI. The cystic collection appears to be slightly decreased in size best appreciated on the axial image with the AP diameter measuring 3.9 cm previously 5.5 cm. The craniocaudal extent measures 10 cm previously measuring 12 cm. Transverse diameter measures up to 4.8 cm previously 6.4 cm. There is however increased peripancreatic fluid/inflammatory change compared with the prior CT 06/15/2017. This is difficult to assess with certainty compared with the most recent MRI. Overall I suspect this may have also increased since the MRI 06/21/2017. There is persistent fluid and inflammatory change tracking along Gerota's fascia more distally in the abdomen most evident on the right side. Similar fluid also tracking along the right paracolic gutter similar to prior. There is minimal prominence of the pancreatic duct similar to prior. Enhancement of the pancreas remains unchanged compared to prior. SPLEEN: Unremarkable. ADRENAL GLANDS: Unremarkable. KIDNEYS AND URETERS: Left upper pole simple cyst unchanged. BLADDER: Unremarkable. GASTROINTESTINAL TRACT: Persistent mild wall thickening of the duodenum likely reactive to the pancreatic inflammatory change, unchanged. Otherwise unremarkable. ABDOMINAL WALL: No significant hernia is appreciated. LYMPH NODES: Normal. VASCULAR: Unremarkable. PELVIC VISCERA: Unremarkable. OSSEOUS STRUCTURES: Degenerative disc changes at L5-S1 unchanged. IMPRESSION: No suspected new areas of pancreatic necrosis. Lobulated pancreatic cystic collection has decreased slightly in size compared with the MRI 06/21/2017. However the immediately generalized surrounding inflammatory change may have increased slightly but without any new discrete fluid collection. Additional findings including left renal cyst and degenerative disc disease unchanged.
--- NOTE | 2017-07-18 18:36 | History & Physical ---
Mary Kumar 07/18/17 1836: General Information and HPI MD Statement: I have seen and personally examined CR VASQUEZ and documented this H&P. The patient is a 47 year old F who presented with a patient stated chief complaint of [abdominal pain]. Source of Information: patient, family, old records Exam Limitations: no limitations History of Present Illness: This is a 47 y/o morbid obesity woman HTN, HLD, anxiety, depression, panic attacks, post AP 1993, hx LLE DVT postop 1993 was on coumadin for a year, Hx of Choledocholithiasis and gallstone pancreatitis s/p laparoscopic cholecystectomy, necrotic pancreatitis (patient was transferred to [place]), recent admission in [facility] in June 2017 for another episode of acute pancreatitis, who presented today at the emergency room complaining of sudden onset epigastric and right upper quadrant abdominal pain. According to patient she has some baseline epigastric and right upper quadrant abdominal pain after being discharged recently from hospital; this morning patient felt that pain has changed in quantity and quality; became more severe; radiating to back; she felt occasionally nauseous but did not vomit, and due to pain did not feel safe to eat; has persistent elevated temperature of 100. She got concerned and called [facility] GI service and after talking to Dr. Cordoba, he was convinced that patient is better to be seen in emergency room. Apart from her acute presentation patient mentioned that the past few weeks she has had productive cough with clear to yellow sputum which was preceded by self- limited URI symptoms/congestion and postnasal drip. Denies any urinary symptoms, chest pain, shortness of breath, palpitation. In the emergency room patient had temperature of 100.6 and 100.5 and persistently tachycardic blood pressure remained stable. Allergies/Medications Allergies: Coded Allergies: Sulfa (Sulfonamide Antibiotics) (Intermediate, RASH 05/21/17) valsartan (From DIOVAN) (RETAIN WATER PER PT 07/18/17) Home Med list Amlodipine Besylate 5 MG TABLET 2 TAB PO DAILY BP (Reported) Clonazepam 1 MG TABLET 1 TAB PO BIDP PRN ANXIETY (Reported) Duloxetine HCl 60 MG CAPSULE.DR 2 CAP PO DAILY MENTAL HEALTH/NERVE PAIN ( Reported) Ergocalciferol (Vitamin D2) (Vitamin D2) 50,000 UNIT CAPSULE 1 CAP PO QWED SUPPLEMENT (Reported) Metoprolol Succinate 100 MG TAB.ER.24H 1 TAB PO DAILY HEART/BP (Reported) Montelukast Sodium 10 MG TABLET 1 TAB PO DAILY ALLERGIES (Reported) Oxycodone HCl 5 MG TABLET 1 TAB PO Q4H PRN PAIN (Reported) Pantoprazole Sodium 40 MG TABLET.DR 1 TAB PO DAILY GI (Reported) Trazodone HCl 50 MG TABLET 1-2 TAB PO QPM SLEEP (Reported) Compliance With Home Meds: GOOD Past History Travel History Traveled to [place] past 21 day No Medical History Neurological: NONE EENT: Lasik surgery Cardiovascular: hypertension, hyperlipidemia Respiratory: asthma, obstructive sleep apnea Gastrointestinal: pancreatitis Hepatic: ? mild fatty liver Renal: NONE Musculoskeletal: NONE Psychiatric: anxiety, depression, panic attacks Endocrine: obesity Blood Disorders: coagulopathy, DVT (LLE 1993, post AP) Cancer(s): NONE PROCESS ARTIST/Reproductive: NONE History of MRSA: No History of VRE: No History of CDIFF: No Influenza Vaccine: 03/14/17 Surgical History Surgical History: appendectomy (1993), cholecystectomy (05/26/17: Lap MATEOY), LASIC EYE SURGERY Past Family/Social History Family History Relations & Conditions if any FATHER (A&W). Age 67. MOTHER, , Age 34; Cause: MVA (motor vehicle accident). PGA, , Age 85; Cause: Colon cancer. Relation not specified for: *No pertinent family history Psychosocial History Who Do You Live With? spouse Services at Home: None Primary Language: Bulgarian ETOH Use: denies use Illicit Drug Use: denies illicit drug use Living Will? yes Power of Field Appraiser/HCP? no Functional Ability ADLs Independent: dressing, eating, toileting, bathing. Ambulation: independent IADLs Independent: shopping, housework, finances, food prep, telephone, transportation , medication admin. Review of Systems Review of Systems Constitutional: Reports: see HPI, fever. Denies: no symptoms, chills, diaphoresis, weakness, unexplained weight loss. EENTM: Reports: see HPI. Cardiovascular: Reports: see HPI. Respiratory: Reports: cough, sputum production, wheezing. GI: Reports: see HPI, abdominal pain, nausea. Denies: diarrhea, distention, bowel incontinence, melena, bloody stool, changes in stool, vomiting. Musculoskeletal: Reports: see HPI. Skin: Reports: see HPI. Neurological/Psychological: Reports: no symptoms. All Other Systems: Reviewed and Negative Exam & Diagnostic Data Last 24 Hrs of Vital Signs/I&O Vital Signs Date Time Temp Pulse Resp B/P B/P Pulse O2 O2 Flow FiO2 Mean Ox Delivery Rate 07/18 1802 98.9 110 18 120/72 95 Room Air 07/18 1624 99.2 112 18 126/70 94 Room Air 07/18 1623 99.2 07/18 1547 100.6 07/18 1447 100.5 126 12 135/77 95 Room Air 07/18 1445 Room Air 07/18 1205 99.9 150 20 134/98 97 Room Air Intake & Output 07/18 1600 07/18 0800 07/18 0000 Intake Total 1000 Output Total Balance 1000 Intake, IV 1000 Patient 244 lb Weight Weight Reported by Patient Measurement Method Physical Exam General Appearance Alert, Oriented X3, Cooperative, Moderate Distress HEENT membranes are dry Neck Supple, No JVD Lymphatic Axillary nl, Cervical nl Cardiovascular Normal S1, Normal S2, No Murmurs Lungs Clear to Auscultation, Normal Air Movement Abdomen Epigastric pain RUQ tenderness Damon sign + No cullens sign , gaurding +, No rebound Neurological Normal Speech Extremities No Clubbing, No Cyanosis, No Edema Vascular Normal Pulses, Pulses Symmetrical Last 24 Hrs of Labs/Dangelo: Laboratory Tests 07/18/17 1523: Lactic Acid Cancelled 07/18/17 1231: Anion Gap 19 H, Estimated GFR > 60, BUN/Creatinine Ratio 10.0, Glucose 123 H, Lactic Acid 1.3, Calcium 9.1, Total Bilirubin 0.5, AST 20, ALT 31, Alkaline Phosphatase 170 H, Troponin I < 0.01, C-Reactive Prot, Quant > 9.0 H, Total Protein 6.2 L, Albumin 3.2 L, Globulin 3.0, Albumin/Globulin Ratio 1.1, Amylase 1016 H, Lipase 5577 H, Total Beta HCG NEGATIVE, CBC w Diff NO MAN DIFF REQ, RBC 4.25, MCV 85.7, MCH 28.2, MCHC 32.9 L, RDW 14.7 H, MPV 7.3 L, Gran % 89.3 H, Lymphocytes % 7.0 L, Monocytes % 2.6, Eosinophils % 1.1, Basophils % 0 , Absolute Granulocytes 11.5 H, Absolute Lymphocytes 0.9 L, Absolute Monocytes 0.3, Absolute Eosinophils 0.1, Absolute Basophils 0 Microbiology 07/18 1950 NASOPHARYN: Influenza Virus A & B Rapid Smear - RECD 07/18 1917 BLOOD: Blood Culture - COLB 07/18 1917 BLOOD: Blood Culture - COLB Diagnostic Data EKG Results NSRR no St T wave change Other Results IMPRESSION: No suspected new areas of pancreatic necrosis. Lobulated pancreatic cystic collection has decreased slightly in size compared with the MRI 06/21/2017. However the immediately generalized surrounding inflammatory change may have increased slightly but without any new discrete fluid collection. Additional findings including left renal cyst and degenerative disc disease unchanged. Assessment/Plan Assessment: This is a 47 years old woman with PMH of multiple pancreatitis, recently discharged from on 2017, after being treated for pancreatitis was admitted for what more seems to be another episode of acute pancreatitis. CT Abd and pelvic w/ IV contrat: LUNG BASES: Minimal posterior atelectasis right base. Right pleural effusion previously noted has cleared. Minimal left posterior discoid atelectasis. Trace pleural effusion unchanged. PANCREAS: There is a persistent lobulated cystic collection within the body and head of the pancreas which I suspect reflects a single lobulated cyst rather than separate cysts as was suggested on the prior MRI. The cystic collection appears to be slightly decreased in size best appreciated on the axial image with the AP diameter measuring 3.9 cm previously 5.5 cm. The craniocaudal extent measures 10 cm previously measuring 12 cm. Transverse diameter measures up to 4.8 cm previously 6.4 cm. There is however increased peripancreatic fluid/inflammatory change compared with the prior CT 06/15/2017. This is difficult to assess with certainty compared with the most recent MRI. Overall I suspect this may have also increased since the MRI 06/21/2017. There is persistent fluid and inflammatory change tracking along Gerota's fascia more distally in the abdomen most evident on the right side. Similar fluid also tracking along the right paracolic gutter similar to prior. There is minimal prominence of the pancreatic duct similar to prior. Enhancement of the pancreas remains unchanged compared to prior. Na AG 18; Na 139, Cl 97, K 3.9, Lactic acid 1.3, AST and ALT WNL, ALP 170 CRP >9 H Modified Baltazr score fpr severity of pancreatitis on CT: moderate pancreatitis BISAP: 2-3 EKG: NSRR, No T wave ST segment change RUQ abdominal US: CXR: List of active problems: 1) acute pancreatitis, the possibility of pancreatitis 2/2 CBD gallstones remains a major concern considering her cholestatic pattern of LFT disturbance ( dominant ALp ab/nl); or it could be another episode or relpase of the recent pancreatitis. Inaddition to management of her pancreatitis, the her CBD needs to be assessed. CT does not 100% exclude the CBD stones. for now we obtain an ABD US but eventually she needs an ERCP. 2) AGMA w/ metabolic alkalosis: LA is normal; the source of the AGMA for now is not clear; but the possible source of metabolic alkalosis could be contractile alkalosis. Regardless, since the patient has a fever, that might have all been inflammatory response, we will do the whole work up looking for a source of infection. Watch off antibiotics. Blood Cx, UA, Urine Cx, flu swab is pending. 3) Hold her unnecessary medications and restart as patient tolerates Plan * admit to [facility] * NPO * recheck CRP w/ in 48h. Trend HCT and Ca within 48 h * Continue hydration w/ RL 125cc/h x 4 lit * pain management w/ IV morphine 2 mg Q4PRN. * Abdominal US; assess for CBD dilation * persue ERCP if GI is agreeable * follow up with GI * Follow microbiology tests * continue Metoprolo 100 mg ER BID and hold amlodipine * hold all the unncessary medications * CXR * follow attending note * repeat CBC and BEP in the am * heparin 5000 U Q8h SQ * FC As Ranked By This Provider Problem List: 1. Pancreatitis 2. Acute pancreatitis 3. History of laparoscopic cholecystectomy 4. Status post laparoscopic cholecystectomy Core Measures/Misc (02/28) Acute Coronary Syndrome ACS Diagnosis: No Congestive Heart Failure Congestive Heart Failure Diagnosis No Cerebrovascular Accident CVA/TIA Diagnosis: No VTE (View Protocol) VTE Risk Factors Acute Medical Illness No Mechanical VTE Prophylaxis d/t N/A MechProphylax Ordered No VTE Pharm Prophylaxis d/t NA PharmProphylax ordered Sepsis (View protocol) Sepsis Present: No Resident Review Statement Resident Statement: examined this patient, discussed with business intern, agreed with business intern, discussed with family, reviewed EMR data (avail), discussed with nursing , discussed with case mgmt, reviewed images, amended to note Janene Marin 07/19/17 0342: Attending MD Review Statement Attending Statement Attending MD Statement: examined this patient, discuss w/resident/PA/ELECTRICAL CALIBRATOR, agreed w/resident/PA/ELECTRICAL CALIBRATOR, reviewed EMR data (avail), reviewed images, amended to note Attending Assessment/Plan: CC: Abdominal pain PMH: HTN, anxiety, depression, allergies, recently diagnosed dyslipidemia, remote history of DVT in left lower extremity, was diagnosed to have clotting abnormality currently not on anticoagulation, recurrent pancreatitis Patient had recurrent hospitalization and recent past for recurrent and complicated pancreatitis. Last discharge was June 23. Patient was doing apparently alright at home with a chronic level of pain in her abdomen, noticed to have fever at home today, it was persistent. Given her extensive pancreatic history she preferred to come to ER after talking to her shove up. She also endorses worsening of epigastric pain and right upper quadrant pain today. Both pains are severe in nature but epigastric pain is more dull in character and right upper quadrant pain is sharp. She denies any vomiting but she has nausea, denies diarrhea, flulike symptoms, myalgias, skin rashes. She had URI symptoms approximately a week back which is resolved but She has cough with mild expectoration since last 1 week which is gradually improving. She denies any pleuritic chest pain. No urinary symptoms. Vitals: T max 100.6, pulse 150 on arrival improved to 100, RR 20, blood pressure 134/98, saturating 94% on room air On Exam: A O 3, cooperative, obese, moderate distress due to pain, neck supple, JVD normal, no lymphadenopathy, mucosa dry, no focal neurological deficit, no dependent edema, no obvious skin rashes or inflammation CVS: S1-S2, RRR. RS: Clear to auscultate bilaterally. Abdomen: Soft, tender to touch RUQ and epigastrium, no guarding or rigidity, ND, bowel sounds present. Peripheral pulses perfusion normal Labs: WBC 12.9, hemoglobin 12.0, hematocrit 36.4, platelets 510, sodium 139, potassium 3.8, chloride 97, bicarbonate 24, BUN 6, creatinine 0.6, glucose 123, calcium 9.1, bilirubin 0.5, AST 20, ALT 31, alkaline phosphatase 170, troponin less than 0.01, albumin 3.2, lipase 5577 CXR:Limited study, no acute infiltrates. CT abdomen and pelvis with IV contrast: 1. No suspected new areas of pancreatic necrosis. 2. Lobulated pancreatic cystic collection has decreased slightly in size compared with the MRI 06/21/2017. 3. However the immediately generalized surrounding inflammatory change may have increased slightly but without any new discrete fluid collection. 4. Additional findings including left renal cyst and degenerative disc disease unchanged. Assessment and plan 47-year-old female with recently diagnosed hypertension and recurrent pancreatitis presented in ER for worsening of abdominal pain. On her chart review she was admitted from May 19 - May 28 for gallstone pancreatitis , underwent laparoscopic cholecystectomy on 05/26/2017. Patient came back again on June 09 for worsening abdominal pain, was found to have necrotic pancreatitis, was transferred to [facility] for possible drainage of fluid collection. It was not drained even at [facility] and patient came back again for worsening abdominal pain on June 15. During that hospitalization patient was admitted in ICU. Moderate was obtained during that hospitalization with a concern of persistent CBD stone but even though it showed mild intra-and extrahepatic biliary ductal dilatation stone was not visualized. Patient also had walled off necrosis. Patient was doing apparently alright at home with a chronic level of pain in her abdomen, noticed to have fever at home today, it was persistent. Given her extensive pancreatic history she preferred to come to ER after talking to her shove up. She also endorses worsening of epigastric pain and right upper quadrant pain. Both pains are severe but epigastric pain is more dull in character and right upper quadrant pain is sharp. She denies any vomiting but she has nausea, denies diarrhea, flulike symptoms, myalgias, skin rashes. She had URI symptoms approximately a week back which is resolved but She has cough with mild expectoration since last 1 week which is gradually improving. She denies any pleuritic chest pain. No urinary symptoms. She is tender to palpate on right upper quadrant and epigastrium. Patient is found to have mild leukocytosis with left shift, mild anion gap. Patient's BUN is 6, she is not able to tolerate food, decreased appetite. Her bilirubin and transaminases are normal and alkaline phosphatase is mildly elevated but it is trending down as compared to previous values. CT findings shows no new areas of necrosis, lobulated pancreatic cystic collection which is decreasing in size but there is increased inflammation around the pancreas and there is persistent fluid collection and inflammation along the metatarsal fascia on right side and paracolic gutter. There is prominence of pancreatic duct. Patient appears to have recurrent pancreatitis, should be again evaluated for CBD stone as the cause. GI has been closely involved in her care, we will consult them. In continue all supportive care. Her fever can be because of pancreatic inflammation but other causes should be ruled out. + Acute recurrent pancreatitis + Fever + History of HTN, anxiety, depression, allergies, recently diagnosed dyslipidemia, remote history of DVT in left lower extremity, was diagnosed to have clotting abnormality currently not on anticoagulation - Admit to general medicine - Continue aggressive hydration with lactated Ringer - Check right upper quadrant ultrasound - check CRP for 3 days as prognostic indicator - Check magnesium and phosphorus, replace if low - Adequate pain control - Check LFT with all the labs in a.m. - Gastroenterology consult - Chest x-ray - 2 sets of blood cultures - Influenza swab - Continue her oral antihypertensives - DVT prophylaxis
--- NOTE | 2017-07-18 20:32 | RADIOLOGY REPORT ---
EXAMINATION: XR PORTABLE CHEST CLINICAL INFORMATION: Fever cough COMPARISON: None TECHNIQUE: Portable frontal view of the chest was obtained. FINDINGS: Exam limited for inspiration, No significant abnormality is noted involving the heart, lungs, mediastinum, bony thorax or soft tissues. IMPRESSION: Limited study, no acute infiltrates.
[2017-07-18 20:52] VITALS: BP 138/82
[2017-07-18 22:05] VITALS: BP 142/82
--- NOTE | 2017-07-19 03:46 | Admission Certification ---
Admission Certification Certification Statement - As attending physician, I certify that at the time of - admission, based on clinical presentation, severity of - symptoms, need for further diagnostic testing and - therapeutic interventions, and risk of adverse outcomes - without in-hospital treatment, in my clinical assessment, - this patient requires an acute hospital stay for a minimum - of two nights or longer. I have also considered psychsocial - factors such as support system, advanced age, financial - issues, cognitive issues, and failed out-patient treatments, - past re-admission history, safety of patient, and lack of - compliance as applicable. Specific rationale supporting this admission is: Acute recurrent pancreatitis
[2017-07-19 06:09] VITALS: BP 142/86
--- NOTE | 2017-07-19 07:30 | PN- Housestaff ---
[facility] 0730: Subjective Follow-up For: Recurrent alcoholic pancreatitis Pancreatic pseudocyst Subjective: No overnight events. Patient remained afebrile overnight. Seen and examined this morning. Patient denied any chest pain, short of breath, nausea, vomiting, chills, fever, lightheadedness and dysuria. Patient reported having dull abdominal pain 4/10. Review of Systems Constitutional: Reports: no symptoms. EENTM: Reports: no symptoms. Cardiovascular: Reports: no symptoms. Respiratory: Reports: no symptoms. Gastrointestinal: Reports: abdominal pain. Genitourinary: Reports: no symptoms. Musculoskeletal: Reports: no symptoms. Neurological/Psychological: Reports: no symptoms. Objective Last 24 Hrs of Vital Signs/I&O Vital Signs Date Time Temp Pulse Resp B/P B/P Pulse O2 O2 Flow FiO2 Mean Ox Delivery Rate / 0753 100 142/86 02/ 0609 98.8 100 20 142/86 93 Room Air / 2205 98.8 100 20 142/82 94 Room Air / 2114 100 / 2052 Room Air 02/ 2052 98.7 120 24 138/82 97 Room Air 02/04 1802 98.9 110 18 120/72 95 Room Air 02/04 1624 99.2 112 18 126/70 94 Room Air 02/ 1623 99.2 02/ 1547 100.6 02/ 1447 100.5 126 12 135/77 95 Room Air 02/04 1445 Room Air 02/ 1205 99.9 150 20 134/98 97 Room Air Intake & Output / 1600 02/05 0800 02/ 0000 Intake Total 1000 1125 Output Total Balance 1000 1125 Intake, IV 1000 1125 Patient 244 lb Weight Weight Reported by Patient Measurement Method Physical Exam General Appearance: Alert, Oriented X3, Cooperative Skin Temp/Moisture Exam: Warm/Dry Sepsis Skin Exam (color): Normal for Ethnicity HEENT: Atraumatic, PERRLA, EOMI Neck: Supple Cardiovascular: Normal S1, Normal S2 Lungs: Clear to Auscultation Abdomen: Soft, No Tenderness Neurological: Normal Speech, Strength at 5/5 X4 Ext, Normal Tone, Sensation Intact Extremities: No Edema Assessment/Plan Assessment: 47 YO F morbid obesity with PMH of HTN, HLD, anxiety, depression, panic attacks, post AP 1994, hx LLE DVT postop 1993 was on coumadin for a year, Hx of Choledocholithiasis and gallstone pancreatitis s/p laparoscopic cholecystectomy, necrotic pancreatitis (patient was transferred to [facility]), recent admission in [facility] in June 2017 for another episode of acute pancreatitis, who presented today at the emergency room complaining of sudden onset epigastric and right upper quadrant abdominal pain. With the patient on general medicine floor for acute recurrent pancreatitis. Acute recurrent pancreatitis with pancreatic pseudocyst: -Nothing by mouth for now -IV hydration with Ringer's lactate at the rate of 200 mL per hour for 24 hours. -IV Protonix -IV antiemetics as needed -IV morphine to control pain. -We will monitor patient's vitals especially temperature and WBC count if she spikes fever again her WBC count goes up, we will repeat imaging studies and blood cultures again. -We will observe off antibiotics for now. -Her CPR level is more than 9. -Patient CT scan is showing decreased size of pseudocysts compared to the last study. -We will follow GI recommendations. History of hypertension and hyperlipidemia: We'll continue metoprolol and Lipitor. History of depression and anxiety: -Holding her home medications. DVT prophylaxis: Mechanical and Lovenox CODE STATUS: Full code Problem List: 1. Pseudocyst of pancreas 2. Acute pancreatitis Pain Ratin Pain Location: Abdominal pain Pain Goal: Pain 4 or less Pain Plan: pain pathway Tomorrow's Labs & Rationales: cbc/bep Christo Nugent MD 07/19/17 1253: Attending Review Statement Attending Statement Attending MD Statement: examined this patient, discuss w/resident/PA/ABSTRACT CHECKER, agreed w/resident/PA/ABSTRACT CHECKER, reviewed EMR data (avail) Attending Assessment/Plan: 47F PMH HTN, HLD, anxiety, depression, history of choledocholithiasis and gallstone pancreatitis s/p laparoscopic cholecystectomy with recurrent pancreatitis, admitted with acute pancreatitis, found to have likely pseudocyst present which has decreased in size from a month ago. Initially febrile 100.6 on admission, possibly secondary to URI symptoms vs pancreatitis, afebrile since. Doing well today, pain relatively controlled, vitals stable, labs reviewed. 1. Recurrent acute gallstone pancreatitis Plan - Continue on general medicine - Aggressive IV hydration - NPO - Morphine 4mg q3h PRN for pain, monitor for sedation - Monitor electrolytes and LFTs - Follow GI recommendations - DVT PPx
--- NOTE | 2017-07-19 07:40 | Cons- Gastroenterology ---
General Information and HPI Consulting Request Date of Consult: 07/19/17 Requested By: Ramy Esteban MD Reason for Consult: Pancreatitis. Abdominal pain. Abnormal ct scan. Source of Information: patient, old records Exam Limitations: no limitations History of Present Illness: Ms. Kwok is a 47 year old female with a history of gallstone pancreatitis back in May of last year who presented to yesterday for fevers at home and worsening abdominal pain. She was initially admitted in May of last year for gallstone pancreatitis at which point she had her gallbladder removed and was subsequently sent home only to return a few days later with worsening pain and a repeat CAT scan showed evidence of pancreatic necrosis. She was transferred to [place] for potential drainage, however that never transpired. She was subsequently readmitted to [facility] for acute pancreatitis in June that was treated conservatively. Since she has been home she has had some baseline abdominal discomfort but has been able to tolerate by mouth intake. Yesterday she had worsening abdominal pain which radiated up to her right upper quadrant and was associated with a low-grade fever to 101 Fahrenheit for which was recommended she go to the emergency room for further evaluation. She has had some nausea, but she is without significant vomiting. On talking to her today she feels her abdominal pain may have been worsening over the previous week, but this is difficult for her to assess as she has never been completely pain-free over the past few months. She has been having normal bowel movements without marcos-colored stool and she denies any significant dark urine. In the ER she was hemodynamically stable and was noted to have a low-grade fever. Her lipase was noted to be moderately elevated and she had a CAT scan which did not show any new areas of necrosis or any significant fluid collections, but it did show worsening pancreatitis for which she was admitted. Overnight she has been hydrated with lactated Ringer solution and given IV narcotics for pain control. She has not had any high temperature spike since being admitted, but still has abdominal discomfort. Allergies/Medications Allergies: Coded Allergies: Sulfa (Sulfonamide Antibiotics) (Intermediate, RASH 05/21/17) valsartan (From DIOVAN) (RETAIN WATER PER PT 07/18/17) Home Med List: Amlodipine Besylate 5 MG TABLET 2 TAB PO DAILY BP (Reported) Clonazepam 1 MG TABLET 1 TAB PO BIDP PRN ANXIETY (Reported) Duloxetine HCl 60 MG CAPSULE.DR 2 CAP PO DAILY MENTAL HEALTH/NERVE PAIN ( Reported) Ergocalciferol (Vitamin D2) (Vitamin D2) 50,000 UNIT CAPSULE 1 CAP PO QWED SUPPLEMENT (Reported) Metoprolol Succinate 100 MG TAB.ER.24H 1 TAB PO DAILY HEART/BP (Reported) Montelukast Sodium 10 MG TABLET 1 TAB PO DAILY ALLERGIES (Reported) Oxycodone HCl 5 MG TABLET 1 TAB PO Q4H PRN PAIN (Reported) Pantoprazole Sodium 40 MG TABLET.DR 1 TAB PO DAILY GI (Reported) Trazodone HCl 50 MG TABLET 1-2 TAB PO QPM SLEEP (Reported) Current Medications: Current Medications Sig/Anay Start time Last Medication Dose Route Stop Time Status Admin Acetaminophen 0 .STK-MED ONE 07/18 1548 DC IV Acetaminophen 1,000 MG ONCE ONE 07/18 1515 DC 07/18 N/A 1 UNIT IV 07/18 1529 1547 Lactated Ringer's 1,000 ML Q8H 07/18 1930 AC 07/19 IV 07/20 0329 0421 Metoprolol Succinate 100 MG DAILY 07/19 1000 AC PO Morphine Sulfate 2 MG Q4P PRN 07/18 1930 AC 07/19 IV 0533 Morphine Sulfate 0 .STK-MED ONE 07/18 1301 DC .ROUTE Morphine Sulfate 4 MG ONCE ONE 07/18 1245 DC / IV 07/18 1246 1308 Ondansetron HCl 0 .STK-MED ONE 07/18 1936 DC .ROUTE Ondansetron HCl 4 MG Q6P PRN 07/18 1930 AC / IV 1933 Ondansetron HCl 0 .STK-MED ONE 07/18 1300 DC .ROUTE Ondansetron HCl 4 MG ONCE ONE 07/18 1245 DC / IV / 1246 1308 Oxycodone/ 1 TAB Q4P PRN 07/18 1930 AC 07/19 Acetaminophen PO 0337 Sodium Chloride 1,000 ML BOLUS ONE 07/18 1645 DC 07/18 IV 07/18 1744 1659 Sodium Chloride 1,000 ML BOLUS ONE 07/18 1245 DC 02/ IV 07/18 1344 1308 Trimethobenzamide HCl 200 MG ONCE ONE 07/18 2315 DC 07/18 IM 07/18 2316 2313 Past History Travel History Traveled to [place] past 21 day No Medical History Blood Transfusion Hx: No Neurological: NONE EENT: Lasik surgery Cardiovascular: hypertension, hyperlipidemia Respiratory: asthma, obstructive sleep apnea Gastrointestinal: pancreatitis Hepatic: ? 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 Age 67. MOTHER, , Age 34; Cause: MVA (motor vehicle accident). PGA, , Age 85; Cause: Colon cancer. Relation not specified for: *No pertinent family history Psychosocial History Where Do You Live? Home Who Do You Live With? spouse Services at Home: None Primary Language: Indonesian Smoking Status: Never Smoked ETOH Use: denies use Illicit Drug Use: denies illicit drug use Living Will? 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 Ambulation: independent IADLs Independent: shopping, housework, finances, food prep, telephone, transportation , medication admin. Review of Systems Review of Systems Constitutional: Reports: chills, fever, malaise. Denies: diaphoresis, weakness, unexplained weight loss. EENTM: Denies: no symptoms. Cardiovascular: Reports: edema. Denies: chest pain, orthopena, palpitations. Respiratory: Reports: short of breath. Denies: cough, hemoptysis, orthopnea. GI: Reports: see HPI. Genitourinary: Denies: no symptoms. Musculoskeletal: Denies: no symptoms. Skin: Denies: no symptoms. Neurological/Psychological: Denies: no symptoms. Hematologic/Endocrine: Denies: no symptoms. Immunologic/Allergic: Denies: no symptoms. All Other Systems: Reviewed and Negative Exam & Diagnostic Data Vital Signs and I&O Vital Signs Date Time Temp Pulse Resp B/P B/P Pulse O2 O2 Flow FiO2 Mean Ox Delivery Rate 07/19 06 98.8 100 20 142/86 93 Room Air 07/18 2204 98.8 100 20 142/82 94 Room Air 07/18 2113 100 07/18 2051 Room Air 07/18 2051 98.7 120 24 138/82 97 Room Air 07/18 1802 98.9 110 18 120/72 95 Room Air 07/18 1624 99.2 112 18 126/70 94 Room Air 07/18 1623 99.2 07/18 1547 100.6 07/18 1447 100.5 126 12 135/77 95 Room Air 07/18 1445 Room Air 07/18 1205 99.9 150 20 134/98 97 Room Air Intake & Output 07/19 0400 07/18 1600 07/18 0400 07/17 1600 07/17 0400 Intake Total 1000 1125 1000 Output Total Balance 1000 1125 1000 Intake, IV 1000 1125 1000 Patient 244 lb 244 lb Weight Weight Reported by Patient Reported by Patient Measurement Method Physical Exam General Appearance: well developed/nourished, alert, awake, mild distress, obese Head: atraumatic, normal appearance Eyes: Bilateral: normal appearance. Ears, Nose, Throat: normal pharynx, normal ENT inspection Neck: normal inspection, supple, full range of motion Respiratory: normal breath sounds, chest non-tender, no respiratory distress Cardiovascular: regular rate/rhythm Gastrointestinal: normal bowel sounds, no organomegaly, distention, tenderness Rectal: deferred Back: normal inspection, normal range of motion Extremities: no edema Neurologic/Psych: no motor/sensory deficits, awake, alert, oriented x 3 Skin: intact, normal color, warm/dry Results Pertinent Lab Results: Laboratory Tests 07/18 07/18 2100 1523 Chemistry Lactic Acid Cancelled Urines Urine Color (YEL,AMB,STR) YEL Urine Clarity (CLEAR) CLEAR Urine pH (5.0 - 8.0) 6.0 Ur Specific [place] (1.001 - 1.035) 1.015 Urine Protein (NEG,<30 MG/DL) NEG Urine Ketones (NEG) >=80 Urine Nitrite (NEG) NEG Urine Bilirubin (NEG) NEG Urine Urobilinogen (0.1 - 1.0 EU/dl) 1.0 Ur Leukocyte Esterase (NEG) NEG Ur Microscopic SEDIMENT EXAMINED Urine WBC (0 - 2 /HPF) 1-3 H Ur Epithelial Cells (NONE,FEW) MANY H Urine Bacteria (NEG/NONE) MOD H Urine Mucus (FEW,NONE) RARE Urine Hemoglobin (NEG) TRACE-INTACT Urine Glucose (N MG/DL) NEG 02/04 1231 Chemistry Sodium (137 - 145 mmol/L) 139 Potassium (3.5 - 5.1 mmol/L) 3.8 Chloride (98 - 107 mmol/L) 97 L Carbon Dioxide (22 - 30 mmol/L) 24 Anion Gap (5 - 16) 19 H BUN (7 - 17 mg/dL) 6 L Creatinine (0.5 - 1.0 mg/dL) 0.6 Estimated GFR (>60 ml/min) > 60 BUN/Creatinine Ratio (7 - 25 %) 10.0 Glucose (65 - 99 mg/dL) 123 H Lactic Acid (0.7 - 2.1 mmol/L) 1.3 Calcium (8.4 - 10.2 mg/dL) 9.1 Total Bilirubin (0.2 - 1.3 mg/dL) 0.5 AST (14 - 36 U/L) 20 ALT (9 - 52 U/L) 31 Alkaline Phosphatase (<127 U/L) 170 H Troponin I (< 0.11 ng/ml) < 0.01 C-Reactive Prot, Quant (<1.0 mg/dL) > 9.0 H Total Protein (6.3 - 8.2 g/dL) 6.2 L Albumin (3.5 - 5.0 g/dL) 3.2 L Globulin (1.9 - 4.2 gm/dL) 3.0 Albumin/Globulin Ratio (1.1 - 2.2 %) 1.1 Amylase (30 - 110 U/L) 1016 H Lipase (23 - 300 U/L) 5577 H Total Beta HCG (NEGATIVE) NEGATIVE Hematology CBC w Diff NO MAN DIFF REQ WBC (4.8 - 10.8 /CUMM) 12.9 H RBC (4.20 - 5.40 /CUMM) 4.25 Hgb (12.0 - 16.0 G/DL) 12.0 Hct (37 - 47 %) 36.4 L MCV (81.0 - 99.0 FL) 85.7 MCH (27.0 - 31.0 PG) 28.2 MCHC (33.0 - 37.0 G/DL) 32.9 L RDW (11.5 - 14.5 %) 14.7 H Plt Count (130 - 400 /CUMM) 510 H MPV (7.4 - 10.4 FL) 7.3 L Gran % (42.2 - 75.2 %) 89.3 H Lymphocytes % (20.5 - 51.1 %) 7.0 L Monocytes % (1.7 - 9.3 %) 2.6 Eosinophils % (0 - 5 %) 1.1 Basophils % (0.0 - 2.0 %) 0 Absolute Granulocytes (1.4 - 6.5 /CUMM) 11.5 H Absolute Lymphocytes (1.2 - 3.4 /CUMM) 0.9 L Absolute Monocytes (0.10 - 0.60 /CUMM) 0.3 Absolute Eosinophils (0.0 - 0.7 /CUMM) 0.1 Absolute Basophils (0.0 - 0.2 /CUMM) 0 Imaging/Other Studies: SERVICE DATE: 07/18/17-1318 EXAM TYPE: CAT - CT ABD & PELVIS W IV CONTRAST EXAMINATION: CT ABDOMEN AND PELVIS WITH CONTRAST CLINICAL INFORMATION: Assess pancreatitis free fluid, worsening necrosis. COMPARISON: Multiple prior imaging examinations including MRI 06/21/2017 ultrasound of the abdomen 06/19/[address] dated 06/15/2017. TECHNIQUE: Multidetector volumetric imaging was performed of the abdomen and pelvis following IV administration of 94 mL of Omnipaque 300 intravenous contrast. Sagittal and coronal reformatted images were obtained on the technologist's workstation. DLP: 1191.47 mGy-cm FINDINGS: LUNG BASES: Minimal posterior atelectasis right base. Right pleural effusion previously noted has cleared. Minimal left posterior discoid atelectasis. Trace pleural effusion unchanged. LIVER, GALLBLADDER, AND BILIARY TREE: Liver normal. Status post cholecystectomy. PANCREAS: There is a persistent lobulated cystic collection within the body and head of the pancreas which I suspect reflects a single lobulated cyst rather than separate cysts as was suggested on the prior MRI. The cystic collection appears to be slightly decreased in size best appreciated on the axial image with the AP diameter measuring 3.9 cm previously 5.5 cm. The craniocaudal extent measures 10 cm previously measuring 12 cm. Transverse diameter measures up to 4.8 cm previously 6.4 cm. There is however increased peripancreatic fluid/inflammatory change compared with the prior CT 06/15/2017. This is difficult to assess with certainty compared with the most recent MRI. Overall I suspect this may have also increased since the MRI 06/21/2017. There is persistent fluid and inflammatory change tracking along Gerota's fascia more distally in the abdomen most evident on the right side. Similar fluid also tracking along the right paracolic gutter similar to prior. There is minimal prominence of the pancreatic duct similar to prior. Enhancement of the pancreas remains unchanged compared to prior. SPLEEN: Unremarkable. ADRENAL GLANDS: Unremarkable. KIDNEYS AND URETERS: Left upper pole simple cyst unchanged. BLADDER: Unremarkable. GASTROINTESTINAL TRACT: Persistent mild wall thickening of the duodenum likely reactive to the pancreatic inflammatory change, unchanged. Otherwise unremarkable. ABDOMINAL WALL: No significant hernia is appreciated. LYMPH NODES: Normal. VASCULAR: Unremarkable. PELVIC VISCERA: Unremarkable. OSSEOUS STRUCTURES: Degenerative disc changes at L5-S1 unchanged. IMPRESSION: No suspected new areas of pancreatic necrosis. Lobulated pancreatic cystic collection has decreased slightly in size compared with the MRI 06/21/2017. However the immediately generalized surrounding inflammatory change may have increased slightly but without any new discrete fluid collection. Additional findings including left renal cyst and degenerative disc disease unchanged. Assessment/Plan Assessment/Recommendations: Assessment: Ms. Kwok is a 47 year old female with a history of gallstone pancreatitis in May of last year followed by 2 subsequent hospitalizations for recurrent pancreatitis who presnts again with worsening pain and low grade fevers which is most likely secondary to recurrent/persistent pancreatitis. She does have a loculated fluid collection on her ct scan which is likely what has previously been called walled off pancreatic necrosis and likely still is, and this may need to be drained at some point, but as it is decreasing in size and doesn't appear infected radiographically I don't feel this is absolutely necessary at this time. Her imaging does show worsening inflammatory changes so I suspect she just needs a more prolonged period of bowel rest as she has never been completetly pain free and I don't believe the original pancreatic inflammation has ever resolved since her initial episode. At this point I feel her pain, fevers and incrased WBC are secondary to persistent pancreatitis and other then conservative management with bowel rest, IVF and pain control I don't feel that any further interventions are necessary at this time and would continue to observe her off of antibiotics. Recommendations: 1. Keep NPO for now 2. IVF with lactated ringers at 200cc/hr x 24 hours and then reassess volume status 3. Analgesia with IV narcotics if necessary 4. Observe off of antibiotics and would guevara culture and consider repeat imaging for any high temp spike > 101.5 or significant elevation in her WBC. 5. Consideration may ultimately be given to drain the fluid collection, but as it is decreasing in size and doesn't appear infected would hold off on that at this time. Dr. Canela will resume her GI care in the am. Problem List: 1. Pancreatitis 2. Pseudocyst of pancreas 3. Nausea & vomiting 4. Abdominal pain Copies To: Hermelindo BRUNNER,Bienvenido Consult Acknowledgment - Thank you for your consult request.
--- NOTE | 2017-07-19 11:46 | ULTRASOUND REPORT ---
EXAMINATION: US ABDOMEN LIMITED CLINICAL INFORMATION: This is a 47-year-old female with right upper quadrant pain. Common bile duct stone.. COMPARISON: Comparison is made to a CT scan dated , MRI of the abdomen dated 06/21/2017. TECHNIQUE: Real-time imaging of the right upper quadrant abdominal viscera. FINDINGS: PANCREAS: There is a poorly imaged cystic mass in the head/body of the pancreas measuring 4.2 x 4.7 x 7.6 cm. Because of its depth and the body habitus it cannot be completely evaluated for septations or solid nodules or calcification. No pancreatic duct dilatation is demonstrated. Details obscured by overlying bowel gas. LIVER: Normal. The liver demonstrates normal size, contour and echogenicity. No focal lesion or intrahepatic biliary duct dilatation. GALLBLADDER: The patient is status post cholecystectomy. COMMON BILE DUCT: Normal in caliber measuring 0.5 cm in diameter. RIGHT KIDNEY: Normal. No hydronephrosis. No renal calculi or focal parenchymal lesions. The kidney measures 9.7 cm in maximum dimension. FREE FLUID: None. IMPRESSION: 1. Poorly-imaged cystic mass within the head of the pancreas measuring at least 7.6 cm. This corresponds to the mass seen on CT scan and MRI.
[2017-07-19 12:58] LABS: ABSOLUTE BASOPHIL COUNT 0 /CUMM (0.0-0.2); ABSOLUTE EOSINOPHIL COUNT 0.2 /CUMM (0.0-0.7); ABSOLUTE GRANULOCYTE CT 11.6 /CUMM (1.4-6.5); ABSOLUTE LYMPH COUNT 1.1 /CUMM (1.2-3.4); ABSOLUTE MONOCYTE COUNT 0.9 /CUMM (0.10-0.60); BASOPHIL % 0.1 % (0.0-2.0); EOSINOPHIL % 1.7 % (0-5); HEMATOCRIT 32.6 % (37-47); MEAN CORPUSCULAR HGB 28.1 PG (27.0-31.0); MEAN CORPUSCULAR HGB CONC 32.4 G/DL (33.0-37.0); MEAN CORPUSCULAR VOLUME 86.7 FL (81.0-99.0); MEAN PLATELET VOLUME 7.7 FL (7.4-10.4); PLATELET COUNT 407 /CUMM (130-400); RBC DISTRIBUTION WIDTH 14.6 % (11.5-14.5); RED BLOOD CELL CT 3.76 /CUMM (4.20-5.40); WHITE BLOOD CELL COUNT 13.9 /CUMM (4.8-10.8)
[2017-07-19 13:48] VITALS: BP 138/70
--- NOTE | 2017-07-19 14:10 | PN- Student ---
Subjective Subjective: ID: The patient is a 47 year old white obese female with a history of gallstone pancreatitis, necrotic pancreatitis, hypertension, hyperlipidemia, anxiety and depression, panic attacks, and left lower extremity DVT. CC: abdominal pain and fever Source: patient and chart HPI: Patient reported to the ED complaining of 7/10 abdominal pain in the epigastric area with occasional radiation to the back. She describes the pain as a stabbing quality. There is also tenderness in the right upper quadrant area. She reports fevers as high as 101.4. She has a history of multiple pancreatitis admissions. The first was on 05/19, and was determined to be due to gallstones. She had a laparoscopic cholecystectomy at that time. She came to the hospital again on 06/09 due to abdominal pain and was found to have necrotic pancreatitis. She was sent to [place] for drainage, but they elected not to do so. She came back again due to abdominal pain on June 15 of this year. She was admitted to the ICU due to tachycardia. It was thought that this was due to CBD gallstones. Imaging showed dilatation but no gallstones were visualized. Pancreatic cyst collection was seen in the head of the pancreas. Due to this, she reports that she has baseline abdominal pain and that yesterday was worse in addition to her fever. She called her GI doctor who recommended that she come to the ED. She reports having some URI symptoms including cough and runny nose in the week prior, but those had mostly resolved. She states she has some nausea but has not vomited. She also has no appetite. She has been having normal stools and normal urine. She says she has lost almost 50 pounds since May due to appetite and difficulty keeping food down. She reports no other symptoms. She has been taking her medications regularly. PMH: She has a past medical history of hypertension, hyperlipidemia, anxiety, depression, panic attacks, LLE DVT, choledocholithiasis and gallstone pancreatitis, laparoscopic cholecystectomy, necrotic pancreatitis, and obesity. Medications: See objective Allergies: See objective ROS: Constitutional- fever Eyes- negative ENT- resolving post-nasal drip Pulmonary- negative Cardiac- negative GI- epigastric and RUQ pain, nausea - negative Musculoskeletal- negative Skin- negative Neuro- negative Psychiatric- depression, anxious Endocrine- negative Family History: Her mother in a MVA when she was in her 30s. She reports her father and two younger sisters to be in good health. In general, she thinks hypertension tends to run in the family. Social History: She does not smoke or use illicit drugs. Prior to pancreatitis episodes starting in May she described herself as a social drinker. She often ate out for dinner and sometimes had late night snacks. She was starting to go to the gym more often. Since the episodes started, she has a difficult time with appetite and nausea, has not exercised and doesnt drink alcohol. 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 She hasnt worked much since May. She is with no children. Objective Objective: Vital Signs Date Time Temp Pulse Resp B/P B/P Pulse O2 O2 Flow FiO2 Mean Ox Delivery Rate 07/19 1348 98.8 100 20 138/70 93 Room Air 07/19 0753 100 142/86 07/19 0609 98.8 100 20 142/86 93 Room Air 07/18 2205 98.8 100 20 142/82 94 Room Air 07/18 2114 100 07/18 2052 Room Air 07/18 205 98.7 120 24 138/82 97 Room Air / 1802 98.9 110 18 120/72 95 Room Air 02/ 1624 99.2 112 18 126/70 94 Room Air / 1623 99.2 07/18 1547 100.6 07/18 1447 100.5 126 12 135/77 95 Room Air / 1445 Room Air Physical Exam: General: alert and oriented, no acute distress Eyes: no scleral icterus Neck: supple, normal thyroid, no lymphadenopathy Lungs: clear to auscultation, normal breath sounds, non-labored breathing Cardiac: normal S1 and S2, tachycardia, no murmurs rubs or gallops Abdomen: tender RUQ and epigastric, soft, no rebound or guarding, no hepatosplenomegaly, decreased bowel sounds Extremities: no pedal edema Results Results: Current Medications Sig/Anay Start time Last Medication Dose Stop Time Status Admin Heparin Sodium 5,000 UNIT Q8 07/19 1400 AC 07/19 (Porcine) 1353 Lactated Ringer's 1,000 ML Q8H 07/18 1930 AC 07/19 (Lactated Ringers) 07/20 1629 1114 Metoprolol Succinate 100 MG DAILY 07/19 1000 AC 07/19 (Toprol Xl) 0753 Morphine Sulfate 4 MG Q3P PRN 07/19 1100 AC 07/19 (Morphine) 1217 Ondansetron HCl 4 MG Q6P PRN 07/18 193 AC 07/18 (Zofran) 193 Current Medications Sig/Anay Start time Last Medication Dose Route Stop Time Status Admin Acetaminophen 0 .STK-MED ONE 07/18 1548 DC IV Acetaminophen 1,000 MG ONCE ONE 07/18 1515 DC 07/18 N/A 1 UNIT IV 07/18 1529 1547 Heparin Sodium 5,000 UNIT Q8 07/19 1400 AC 07/19 (Porcine) SC 1353 Lactated Ringer's 1,000 ML Q8H 07/18 1930 AC 07/19 IV 07/20 1629 1114 Magnesium Sulfate 1 GM ONCE ONE 07/19 1000 DC 07/19 Dextrose/Water 100 ML IV 07/19 1359 1115 Metoprolol Succinate 100 MG DAILY 07/19 1000 AC 07/19 PO 0753 Morphine Sulfate 4 MG Q3P PRN 07/19 1100 AC 07/19 IV 1217 Morphine Sulfate 2 MG Q4P PRN 07/18 193 DC 07/19 IV 0923 Ondansetron HCl 0 .STK-MED ONE 07/18 193 DC .ROUTE Ondansetron HCl 4 MG Q6P PRN 07/18 1930 AC 07/18 IV 1933 Oxycodone/ 1 TAB Q4P PRN 07/18 193 DC 07/19 Acetaminophen PO 0753 Sodium Chloride 1,000 ML BOLUS ONE 07/18 1645 DC 07/18 IV 07/18 1744 1659 Trimethobenzamide HCl 200 MG ONCE ONE 07/18 2315 DC 07/18 IM 07/18 2316 2313 Laboratory Tests 07/19/17 1030: CBC w Diff Pending, WBC Pending, RBC Pending, Hgb Pending, Hct Pending, MCV Pending, MCH Pending, MCHC Pending, RDW Pending, Plt Count Pending, MPV Pending 07/19/17 0736: Anion Gap 15, Estimated GFR > 60, BUN/Creatinine Ratio 12.5, Phosphorus 4.3, Magnesium 1.5 L, Total Bilirubin 0.8, Direct Bilirubin 0.4, AST 23, ALT 21, Alkaline Phosphatase 124, Total Protein 5.4 L, Albumin 2.6 L 07/18/17 2100: Urine Color YEL, Urine Clarity CLEAR, Urine pH 6.0, Ur Specific [place] 1.015, Urine Protein NEG, Urine Ketones >=80, Urine Nitrite NEG, Urine Bilirubin NEG, Urine Urobilinogen 1.0, Ur Leukocyte Esterase NEG, Ur Microscopic SEDIMENT EXAMINED, Urine WBC 1-3 H, Ur Epithelial Cells MANY H, Urine Bacteria MOD H, Urine Mucus RARE, Urine Hemoglobin TRACE-INTACT, Urine Glucose NEG 07/18/17 1523: Lactic Acid Cancelled 07/18/17 1231: Anion Gap 19 H, Estimated GFR > 60, BUN/Creatinine Ratio 10.0, Glucose 123 H, Lactic Acid 1.3, Calcium 9.1, Total Bilirubin 0.5, AST 20, ALT 31, Alkaline Phosphatase 170 H, Troponin I < 0.01, C-Reactive Prot, Quant > 9.0 H, Total Protein 6.2 L, Albumin 3.2 L, Globulin 3.0, Albumin/Globulin Ratio 1.1, Amylase 1016 H, Lipase 5577 H, Total Beta HCG NEGATIVE, CBC w Diff NO MAN DIFF REQ, RBC 4.25, MCV 85.7, MCH 28.2, MCHC 32.9 L, RDW 14.7 H, MPV 7.3 L, Gran % 89.3 H, Lymphocytes % 7.0 L, Monocytes % 2.6, Eosinophils % 1.1, Basophils % 0 , Absolute Granulocytes 11.5 H, Absolute Lymphocytes 0.9 L, Absolute Monocytes 0.3, Absolute Eosinophils 0.1, Absolute Basophils 0 Microbiology 07/19 1047 BLOOD: Blood Culture - ORD 07/19 1030 BLOOD: Blood Culture - RECD 07/18 1950 NASOPHARYN: Influenza Virus A & B Rapid Smear - COMP 07/18 1917 BLOOD: Blood Culture - CAN Cancelled: SPECIMEN NOT RECEIVED IN LABORATORY 07/18 1917 BLOOD: Blood Culture - CAN Cancelled: SPECIMEN NOT RECEIVED IN LABORATORY Assessment/Plan Assessment: This is a 47 year old obese white female with a history of gallstone pancreatitis, necrotic pancreatitis, s/p laparoscopic cholecystectomy presenting for abdominal pain and fever. Physical exam shows epigastric and RUQ tenderness. Abdominal CT shows no new necrosis and lobulated pancreatic cyst in head reduced from last imaging, and peripancreatic inflammatory change. Labs show elevated alkaline phosphatase of 170, amylase of 1016, lipase of 5577, elevated CRP, WBC of 12.9, and anion gap metabolic acidosis of 19. This is likely to be recurrent acute pancreatitis and she will be admitted to general medicine. Plan: Acute pancreatitis: -Make NPO -Pain control with IV morphine -Aggressive IV fluid hydration -Draw blood cultures to rule out infectious cause -IV anti-emetics if needed -Consult GI Pancreatic pseudocyst: -Should be monitored with WBC count and temperature to see if becomes infected Hypertension and hyperlipidemia: -Continue home medication of metoprolol 100 mg daily Anxiety/depression: -Hold home medications for now
[2017-07-19 15:06] LABS: GRANULOCYTE % 83.4 % (42.2-75.2)
[2017-07-19 22:52] VITALS: BP 126/71
[2017-07-20 06:43] VITALS: BP 131/69
--- NOTE | 2017-07-20 07:16 | PN- Housestaff ---
[place] 07/20/17 0714: Subjective Follow-up For: Recurrent alcoholic pancreatitis Pseudocyst pancreas Subjective: No overnight events. Her max temperature remained 99.5. Seen and examined this morning. Patient denied any chest pain, short of breath, nausea, vomiting, chills and dysuria. Patient reported having abdominal pain /. She was complaining of back pain that's 12/21. Review of Systems Constitutional: Reports: no symptoms. EENTM: Reports: no symptoms. Cardiovascular: Reports: no symptoms. Respiratory: Reports: no symptoms. Gastrointestinal: Reports: abdominal pain. Genitourinary: Reports: no symptoms. Musculoskeletal: Reports: back pain. Neurological/Psychological: Reports: no symptoms. Objective Last 24 Hrs of Vital Signs/I&O Vital Signs Date Time Temp Pulse Resp B/P B/P Pulse O2 O2 Flow FiO2 Mean Ox Delivery Rate 07/20 0740 114 131/69 07/20 0643 99.5 114 18 131/69 95 Room Air / 2252 98.9 96 18 126/71 95 Room Air 07/19 1348 98.8 100 20 138/70 93 Room Air Intake & Output 07/20 1600 02/06 0800 07/20 0000 Intake Total 1600 1100 Output Total Balance 1600 1100 Intake, IV 1600 1100 Physical Exam General Appearance: Alert, Oriented X3, Cooperative Skin Temp/Moisture Exam: Warm/Dry Sepsis Skin Exam (color): Normal for Ethnicity HEENT: Atraumatic, PERRLA, EOMI Neck: Supple Cardiovascular: Normal S1, Normal S2 Lungs: Clear to Auscultation Abdomen: Soft, No Tenderness Neurological: Normal Speech, Strength at 5/5 X4 Ext, Normal Tone, Sensation Intact Extremities: No Edema Assessment/Plan Assessment: 47 YO F morbid obesity with PMH of HTN, HLD, anxiety, depression, panic attacks, post AP 1993, hx LLE DVT postop 1993 was on coumadin for a year, Hx of Choledocholithiasis and gallstone pancreatitis s/p laparoscopic cholecystectomy, necrotic pancreatitis (patient was transferred to [facility]), recent admission in [facility] in June 2017 for another episode of acute pancreatitis, who presented today at the emergency room complaining of sudden onset epigastric and right upper quadrant abdominal pain. Patient is being followed on general medicine floor for acute recurrent pancreatitis. Acute recurrent pancreatitis with pancreatic pseudocyst: -Nothing by mouth for now -IV hydration with Ringer's lactate at the rate of 125mL per hour for 24 hours. -Clear liquid diet. day 1 -IV Protonix -IV antiemetics as needed -IV morphine to control pain. -Continue monitoring patient's vitals especially temperature and WBC count if she spikes fever again her WBC count goes up, we will repeat imaging studies and blood cultures again. -We will observe off antibiotics for now. -Her CPR level is more than 9. -Patient CT scan is showing decreased size of pseudocysts compared to the last study. -We will follow GI recommendations. History of hypertension and hyperlipidemia: -continue metoprolol and Lipitor. History of depression and anxiety: -Holding her home medications. DVT prophylaxis: Mechanical and Lovenox CODE STATUS: Full code Problem List: 1. Pseudocyst of pancreas 2. Pancreatitis Pain Ratin Pain Location: back Pain Goal: Pain 4 or less Pain Plan: PAIN PATHWAY Tomorrow's Labs & Rationales: CBC/BEP Christo Nugent MD 07/20/17 1151: Attending MD Review Statement Attending Statement Attending MD Statement: examined this patient, discuss w/resident/PA/CIVIL SERVICE WORKER, agreed w/resident/PA/CIVIL SERVICE WORKER, reviewed EMR data (avail) Attending Assessment/Plan: 47F PMH HTN, HLD, anxiety, depression, history of choledocholithiasis and gallstone pancreatitis s/p laparoscopic cholecystectomy with recurrent pancreatitis, admitted with acute pancreatitis, found to have likely pseudocyst present which has decreased in size from a month ago. Initially febrile 100.6 on admission, possibly secondary to URI symptoms vs pancreatitis, afebrile since. Doing well today, pain controlled, vitals stable, labs reviewed. 1. Recurrent acute gallstone pancreatitis Plan - Continue on general medicine - Decrease IV fluids - Advance to clear liquid diet - Morphine 4mg q3h PRN for pain, monitor for sedation - Monitor electrolytes and LFTs - Follow GI recommendations - DVT PPx
[2017-07-20 09:34] VITALS: BP 118/62
--- NOTE | 2017-07-20 11:16 | PN- Student ---
Subjective Subjective: Patient did well overnight. She reports that her abdominal pain is 2/10. She does report some shoulder and hip pain due to lying in bed. She denies nausea, headache, chills. She has not vomited. She has not needed any anti-emetics and has not had any pain meds since 4 this am. She denies any other symptoms. Objective Objective: Physical Exam: General: alert and oriented, well-appearing, cooperative Eyes: no scleral icterus Neck: supple, no thyromegaly, no lymphadenopathy Lungs: clear to ausculation, normal breath sounds, non-labored breathing Cardiac: normal S1 and S2, no murmurs, rubs or gallops Abdomen: tender RUQ, soft, non-distended, no hepatosplenomegaly Extremities: no edema, 2+ bilateral pulses Results Results: Vital Signs Date Time Temp Pulse Resp B/P B/P Pulse O2 O2 Flow FiO2 Mean Ox Delivery Rate 07/20 0934 114 18 118/62 96 Room Air Room Air 07/20 0740 114 131/69 07/20 0643 99.5 114 18 131/69 95 Room Air 05 2252 98.9 96 18 126/71 95 Room Air 07/19 1348 98.8 100 20 138/70 93 Room Air Intake & Output 07/20 1600 0206 0800 07/20 0000 Intake Total 1600 1100 Output Total Balance 1600 1100 Intake, IV 1600 1100 Laboratory Tests 07/19/17 1030: CBC w Diff NO MAN DIFF REQ, RBC 3.76 L, MCV 86.7, MCH 28.1, MCHC 32.4 L, RDW 14.6 H, MPV 7.7, Gran % 83.4 H, Lymphocytes % 8.0 L, Monocytes % 6.8, Eosinophils % 1.7, Basophils % 0.1, Absolute Granulocytes 11.6 H, Absolute Lymphocytes 1.1 L, Absolute Monocytes 0.9 H, Absolute Eosinophils 0.2, Absolute Basophils 0 07/19/17 0736: Anion Gap 15, Estimated GFR > 60, BUN/Creatinine Ratio 12.5, Phosphorus 4.3, Magnesium 1.5 L, Total Bilirubin 0.8, Direct Bilirubin 0.4, AST 23, ALT 21, Alkaline Phosphatase 124, Total Protein 5.4 L, Albumin 2.6 L 07/18/17 2100: Urine Color YEL, Urine Clarity CLEAR, Urine pH 6.0, Ur Specific [place] 1.015, Urine Protein NEG, Urine Ketones >=80, Urine Nitrite NEG, Urine Bilirubin NEG, Urine Urobilinogen 1.0, Ur Leukocyte Esterase NEG, Ur Microscopic SEDIMENT EXAMINED, Urine WBC 1-3 H, Ur Epithelial Cells MANY H, Urine Bacteria MOD H, Urine Mucus RARE, Urine Hemoglobin TRACE-INTACT, Urine Glucose NEG 07/18/17 1523: Lactic Acid Cancelled 07/18/17 1231: Anion Gap 19 H, Estimated GFR > 60, BUN/Creatinine Ratio 10.0, Glucose 123 H, Lactic Acid 1.3, Calcium 9.1, Total Bilirubin 0.5, AST 20, ALT 31, Alkaline Phosphatase 170 H, Troponin I < 0.01, C-Reactive Prot, Quant > 9.0 H, Total Protein 6.2 L, Albumin 3.2 L, Globulin 3.0, Albumin/Globulin Ratio 1.1, Amylase 1016 H, Lipase 5577 H, Total Beta HCG NEGATIVE, CBC w Diff NO MAN DIFF REQ, RBC 4.25, MCV 85.7, MCH 28.2, MCHC 32.9 L, RDW 14.7 H, MPV 7.3 L, Gran % 89.3 H, Lymphocytes % 7.0 L, Monocytes % 2.6, Eosinophils % 1.1, Basophils % 0 , Absolute Granulocytes 11.5 H, Absolute Lymphocytes 0.9 L, Absolute Monocytes 0.3, Absolute Eosinophils 0.1, Absolute Basophils 0 Microbiology 07/19 1047 BLOOD: Blood Culture - CAN Cancelled: SPECIMEN NOT RECEIVED IN LABORATORY 07/19 1030 BLOOD: Blood Culture - RECD 07/18 1950 NASOPHARYN: Influenza Virus A & B Rapid Smear - COMP 07/18 1917 BLOOD: Blood Culture - CAN Cancelled: SPECIMEN NOT RECEIVED IN LABORATORY 07/18 1917 BLOOD: Blood Culture - CAN Cancelled: SPECIMEN NOT RECEIVED IN LABORATORY Current Medications Sig/Anay Start time Last Medication Dose Route Stop Time Status Admin Heparin Sodium 5,000 UNIT Q8 07/19 1400 AC 07/20 (Porcine) SC 0504 Ketorolac 30 MG ONCE ONE 07/19 1845 DC 07/19 Tromethamine IM 07/19 1846 1840 Lactated Ringer's 1,000 ML Q8H 07/18 1930 AC 07/20 IV 07/21 0829 0932 Magnesium Sulfate 1 GM ONCE ONE 07/19 1000 DC 07/19 Dextrose/Water 100 ML IV 07/19 1359 1115 Metoprolol Succinate 100 MG DAILY 07/19 1000 AC 07/20 PO 0740 Morphine Sulfate 4 MG Q3P PRN 07/19 1100 AC 07/20 IV 0402 Ondansetron HCl 4 MG Q6P PRN 07/18 1930 AC 07/18 IV 1933 Assessment/Plan Assessment: This is a 47 year old obese white female with a history of gallstone pancreatitis, necrotic pancreatitis, s/p laparoscopic cholecystectomy presenting for abdominal pain and fever. Physical exam shows epigastric and RUQ tenderness. Abdominal CT shows no new necrosis and lobulated pancreatic cyst in head reduced from last imaging, and peripancreatic inflammatory change. Labs on admission showed elevated alkaline phosphatase of 170, amylase of 1016, lipase of 5577, elevated CRP, WBC of 12.9, and anion gap metabolic acidosis of 19. Current labs show alkaline phosphatase of 124 and WBC of 13.9. Vital signs are stable. This is likely to be recurrent acute pancreatitis and she will be admitted to general medicine. Plan: Acute pancreatitis: -Patient is doing better, will advance to clear liquid diet -Currently being hydrated with LR at 200 mls/hr, this can be reduced -Pain control with IV morphine PRN -Blood cultures pending -IV anti-emetics PRN -GI was consulted, recommendations are being followed Pancreatic pseudocyst: -Should be monitored with WBC count and temperature to see if becomes infected -WBC of 13.9 (12.9 yesterday) and temperature (99) have remained stable Hypertension and hyperlipidemia: -Continue home medication of metoprolol 100 mg daily Anxiety/depression: -Hold home medications for now DVT prophylaxis: -Mechanical and lovenox
[2017-07-20 14:23] VITALS: BP 110/78
[2017-07-20 21:58] VITALS: BP 124/70
[2017-07-21 06:18] VITALS: BP 137/82
--- NOTE | 2017-07-21 07:23 | PN- Housestaff ---
[place] 07/21/17 0723: Subjective Follow-up For: Recurrent alcoholic pancreatitis Pseudocyst pancreas Subjective: P seen and examined this morning. She denied any chest pain, short of breath, nausea, vomiting, lightheadedness and dysuria. Patient reported having abdominal pain 4/10 but she denied any nausea or vomiting and she is tolerating clear liquid diet. We will slowly advance her diet as she tolerates. Review of Systems Constitutional: Reports: no symptoms. EENTM: Reports: no symptoms. Cardiovascular: Reports: no symptoms. Respiratory: Reports: no symptoms. Gastrointestinal: Reports: abdominal pain. Genitourinary: Reports: no symptoms. Musculoskeletal: Reports: no symptoms. Neurological/Psychological: Reports: no symptoms. Objective Last 24 Hrs of Vital Signs/I&O Vital Signs Date Time Temp Pulse Resp B/P B/P Pulse O2 O2 Flow FiO2 Mean Ox Delivery Rate 07/21 0948 99 137/82 07/21 0618 98.8 99 20 137/82 94 07/20 2158 99.6 101 20 124/70 97 Room Air 07/20 1423 105 20 110/78 97 Room Air Intake & Output 07/21 1600 07/21 0800 07/21 0000 Intake Total 855 615 Output Total Balance 855 615 Intake, IV 375 375 Intake, Oral 480 240 Physical Exam General Appearance: Alert, Oriented X3, Cooperative Skin Temp/Moisture Exam: Warm/Dry Sepsis Skin Exam (color): Normal for Ethnicity HEENT: Atraumatic, PERRLA, EOMI Neck: Supple Cardiovascular: Normal S1, Normal S2 Lungs: Clear to Auscultation Abdomen: Soft, No Tenderness Neurological: Normal Speech, Strength at 5/5 X4 Ext, Normal Tone, Sensation Intact Extremities: No Edema Assessment/Plan Assessment: 47 YO F morbid obesity with PMH of HTN, HLD, anxiety, depression, panic attacks, post AP 1993, hx LLE DVT postop 1993 was on coumadin for a year, Hx of Choledocholithiasis and gallstone pancreatitis s/p laparoscopic cholecystectomy, necrotic pancreatitis (patient was transferred to [facility]), recent admission in [facility] in June 2017 for another episode of acute pancreatitis, who presented today at the emergency room complaining of sudden onset epigastric and right upper quadrant abdominal pain. Patient is being followed on general medicine floor for acute recurrent pancreatitis. Acute recurrent pancreatitis with pancreatic pseudocyst: -Nothing by mouth for now -IV hydration with Ringer's lactate at the rate of 100mL per hour for 24 hours. -full liquid diet. day 1 -IV antiemetics as needed -IV morphine to control pain. -Continue monitoring patient's vitals especially temperature and WBC count if she spikes fever again her WBC count goes up, we will repeat imaging studies and blood cultures again. -We will observe off antibiotics for now. -Patient CT scan is showing decreased size of pseudocysts compared to the last study. -We will follow GI recommendations. History of hypertension and hyperlipidemia: -continue metoprolol and Lipitor. History of depression and anxiety: -Holding her home medications. DVT prophylaxis: Mechanical and Lovenox CODE STATUS: Full code Problem List: 1. Pseudocyst of pancreas 2. Acute pancreatitis Pain Ratin Pain Location: abdomen Pain Goal: Remain pain free Pain Plan: pain pathway Tomorrow's Labs & Rationales: cbc/bep Christo Nugent MD 07/21/17 1312: Attending MD Review Statement Attending Statement Attending MD Statement: examined this patient, discuss w/resident/PA/ASSISTANT PUBLIC DEFENDER, agreed w/resident/PA/ASSISTANT PUBLIC DEFENDER, reviewed EMR data (avail) Attending Assessment/Plan: 47F PMH HTN, HLD, anxiety, depression, history of choledocholithiasis and gallstone pancreatitis s/p laparoscopic cholecystectomy with recurrent pancreatitis, admitted with acute pancreatitis, found to have likely pseudocyst present which has decreased in size from a month ago. Initially febrile 100.6 on admission, possibly secondary to URI symptoms vs pancreatitis, afebrile since. Doing well today, pain controlled, vitals stable, labs reviewed. 1. Recurrent acute gallstone pancreatitis Plan - Continue on general medicine - Continue gentle IV fluids - Continue current diet - Morphine 4mg q3h PRN for pain, monitor for sedation - Monitor electrolytes and LFTs - Follow GI recommendations - DVT PPx
[2017-07-21 09:08] LABS: ABSOLUTE BASOPHIL COUNT 0.1 /CUMM (0.0-0.2); ABSOLUTE EOSINOPHIL COUNT 0.4 /CUMM (0.0-0.7); ABSOLUTE GRANULOCYTE CT 9.8 /CUMM (1.4-6.5); ABSOLUTE LYMPH COUNT 1.2 /CUMM (1.2-3.4); ABSOLUTE MONOCYTE COUNT 0.6 /CUMM (0.10-0.60); BASOPHIL % 0.4 % (0.0-2.0); EOSINOPHIL % 3.6 % (0-5); GRANULOCYTE % 80.9 % (42.2-75.2); HEMATOCRIT 31.9 % (37-47); MEAN CORPUSCULAR HGB 27.9 PG (27.0-31.0); MEAN CORPUSCULAR HGB CONC 32.5 G/DL (33.0-37.0); MEAN CORPUSCULAR VOLUME 85.7 FL (81.0-99.0); MEAN PLATELET VOLUME 7.8 FL (7.4-10.4); PLATELET COUNT 430 /CUMM (130-400); RBC DISTRIBUTION WIDTH 14.8 % (11.5-14.5); RED BLOOD CELL CT 3.72 /CUMM (4.20-5.40); WHITE BLOOD CELL COUNT 12.1 /CUMM (4.8-10.8)
--- NOTE | 2017-07-21 10:46 | PN- Student ---
Subjective Subjective: Patient seems well this morning. She reports pain in her abdomen of 2-4/10. She did require doses every 3 hours of morphine overnight. She went all day yesterday without any pain medication, and then felt like pain came all at once last night. She denies nausea, vomiting, chills. Her appetite isn't strong but she did eat a little of her breakfast. Had a bowel movement yesterday. Denies diarrhea or blood. Objective Objective: Vital Signs Date Time Temp Pulse Resp B/P B/P Pulse O2 O2 Flow FiO2 Mean Ox Delivery Rate 07/21 0948 99 137/82 07/21 0618 98.8 99 20 137/82 94 07/20 2158 99.6 101 20 124/70 97 Room Air 07/20 1423 105 20 110/78 97 Room Air Intake & Output 07/21 1600 07/21 0800 07/21 0000 Intake Total 855 615 Output Total Balance 855 615 Intake, IV 375 375 Intake, Oral 480 240 Physical Exam: General: alert and oriented, well-appearing, cooperative Eyes: no scleral icterus Neck: supple, no thyromegaly, no lymphadenopathy Lungs: clear to ausculation, normal breath sounds, non-labored breathing Cardiac: normal S1 and S2, no murmurs, rubs or gallops Abdomen: tender RUQ, soft, non-distended, no hepatosplenomegaly Extremities: no edema, 2+ bilateral pulses Results Results: Laboratory Tests 07/21/17 0813: Anion Gap 14, Estimated GFR > 60, BUN/Creatinine Ratio 10.0, Magnesium Pending, Total Bilirubin 0.5, Direct Bilirubin 0.3, AST 20, ALT 21, Alkaline Phosphatase 129 H, Total Protein 5.3 L, Albumin 2.5 L, CBC w Diff NO MAN DIFF REQ, RBC 3.72 L, MCV 85.7, MCH 27.9, MCHC 32.5 L, RDW 14.8 H, MPV 7.8, Gran % 80.9 H, Lymphocytes % 10.2 L, Monocytes % 4.9, Eosinophils % 3.6, Basophils % 0.4, Absolute Granulocytes 9.8 H, Absolute Lymphocytes 1.2, Absolute Monocytes 0.6, Absolute Eosinophils 0.4, Absolute Basophils 0.1 07/20/17 0600: Sodium Cancelled, Potassium Cancelled, Chloride Cancelled, Carbon Dioxide Cancelled, Anion Gap Cancelled, BUN Cancelled, Creatinine Cancelled, BUN/ Creatinine Ratio Cancelled, Magnesium Cancelled, CBC w Diff Cancelled, WBC Cancelled, RBC Cancelled, Hgb Cancelled, Hct Cancelled, MCV Cancelled, MCH Cancelled, MCHC Cancelled, RDW Cancelled, Plt Count Cancelled, MPV Cancelled 07/19/17 1030: CBC w Diff NO MAN DIFF REQ, RBC 3.76 L, MCV 86.7, MCH 28.1, MCHC 32.4 L, RDW 14.6 H, MPV 7.7, Gran % 83.4 H, Lymphocytes % 8.0 L, Monocytes % 6.8, Eosinophils % 1.7, Basophils % 0.1, Absolute Granulocytes 11.6 H, Absolute Lymphocytes 1.1 L, Absolute Monocytes 0.9 H, Absolute Eosinophils 0.2, Absolute Basophils 0 07/19/17 0736: Anion Gap 15, Estimated GFR > 60, BUN/Creatinine Ratio 12.5, Phosphorus 4.3, Magnesium 1.5 L, Total Bilirubin 0.8, Direct Bilirubin 0.4, AST 23, ALT 21, Alkaline Phosphatase 124, Total Protein 5.4 L, Albumin 2.6 L 07/18/17 2100: Urine Color YEL, Urine Clarity CLEAR, Urine pH 6.0, Ur Specific [place] 1.015, Urine Protein NEG, Urine Ketones >=80, Urine Nitrite NEG, Urine Bilirubin NEG, Urine Urobilinogen 1.0, Ur Leukocyte Esterase NEG, Ur Microscopic SEDIMENT EXAMINED, Urine WBC 1-3 H, Ur Epithelial Cells MANY H, Urine Bacteria MOD H, Urine Mucus RARE, Urine Hemoglobin TRACE-INTACT, Urine Glucose NEG 07/18/17 1523: Lactic Acid Cancelled 07/18/17 1231: Anion Gap 19 H, Estimated GFR > 60, BUN/Creatinine Ratio 10.0, Glucose 123 H, Lactic Acid 1.3, Calcium 9.1, Total Bilirubin 0.5, AST 20, ALT 31, Alkaline Phosphatase 170 H, Troponin I < 0.01, C-Reactive Prot, Quant > 9.0 H, Total Protein 6.2 L, Albumin 3.2 L, Globulin 3.0, Albumin/Globulin Ratio 1.1, Amylase 1016 H, Lipase 5577 H, Total Beta HCG NEGATIVE, CBC w Diff NO MAN DIFF REQ, RBC 4.25, MCV 85.7, MCH 28.2, MCHC 32.9 L, RDW 14.7 H, MPV 7.3 L, Gran % 89.3 H, Lymphocytes % 7.0 L, Monocytes % 2.6, Eosinophils % 1.1, Basophils % 0 , Absolute Granulocytes 11.5 H, Absolute Lymphocytes 0.9 L, Absolute Monocytes 0.3, Absolute Eosinophils 0.1, Absolute Basophils 0 Microbiology 07/19 104 BLOOD: Blood Culture - CAN Cancelled: SPECIMEN NOT RECEIVED IN LABORATORY 07/19 1030 BLOOD: Blood Culture - RES 07/18 1950 NASOPHARYN: Influenza Virus A & B Rapid Smear - COMP 07/18 1917 BLOOD: Blood Culture - CAN Cancelled: SPECIMEN NOT RECEIVED IN LABORATORY 07/18 1917 BLOOD: Blood Culture - CAN Cancelled: SPECIMEN NOT RECEIVED IN LABORATORY Current Medications Sig/Anay Start time Last Medication Dose Route Stop Time Status Admin Heparin Sodium 5,000 UNIT Q8 07/19 1400 AC 07/21 (Porcine) SC 0506 Lactated Ringer's 1,000 ML Q8H 07/18 193 AC 07/20 IV 07/21 1129 1616 Metoprolol Succinate 100 MG DAILY 07/19 1000 AC 07/21 PO 0948 Morphine Sulfate 4 MG Q3P PRN 07/19 1100 AC 07/21 IV 0947 Ondansetron HCl 4 MG Q6P PRN 07/18 1930 AC 07/18 IV 1933 Patient Medication 1 ED ONE ONE 07/20 1245 DC Teaching ED 07/20 1246 Potassium Chloride 40 MEQ ONCE ONE 07/21 1045 DC PO 07/21 1046 Assessment/Plan Assessment: This is a 47 year old obese white female with a history of gallstone pancreatitis, necrotic pancreatitis, s/p laparoscopic cholecystectomy presenting for abdominal pain and fever. Physical exam shows epigastric and RUQ tenderness. Abdominal CT shows no new necrosis and lobulated pancreatic cyst in head reduced from last imaging, and peripancreatic inflammatory change. Labs on admission showed elevated alkaline phosphatase of 170, amylase of 1016, lipase of 5577, elevated CRP, WBC of 12.9, and anion gap metabolic acidosis of 19. Current labs show alkaline phosphatase of 129 and WBC of 12.1. Vital signs are stable. This is likely to be recurrent acute pancreatitis and she will be admitted to general medicine. Plan: Acute pancreatitis: -Advanced to clear liquid diet yesterday and full liquid diet today, will see how she handles it -Currently being hydrated with LR at 125 mls/hr -Pain control with IV morphine PRN -Blood cultures showed no growth after day 1 -IV anti-emetics PRN -GI was consulted, recommendations are being followed Pancreatic pseudocyst: -Should be monitored with WBC count and temperature to see if becomes infected -WBC of 12.1 (13.9 yesterday) and temperature (98) have remained stable Hypertension and hyperlipidemia: -Continue home medication of metoprolol 100 mg daily Anxiety/depression: -Hold home medications for now DVT prophylaxis: -Mechanical and lovenox
--- NOTE | 2017-07-21 12:50 | PN- Gastroenterology ---
Assessment/Plan Assessment/Recommendations: ASSESSMENT: 1. Pancreatitis Acute on Chronic 2. Pancreatitic Pseudocyst with Walled Off Necrosis 3. Morbid Obesity RECOMMENDATIONS: 1. IV Fluids 2. Pain Control 3. Diet as tolerated 4. I will call the pancreatologists at [facility] to see whether after review of her X-ray studies that she would be a good candidate for cyst-gastrostomy. 5. Follow laboratory studies. Subjective Subjective: Patient is feeling better today. Is getting Morphine with adequate pain control. Is able to take small amounts of solid food. No nausea or vomiting. I have reviewed her CT Scan and US that were done on admission. She had an MRI done on 07/22/2017 prior to admission and does not differ significantly from her admission studies. The results are as follows: TECHNIQUE: MR abdomen without contrast was obtained using routine sequences. FINDINGS: There is intrahepatic and extrahepatic biliary ductal prominence, with the common bile duct measuring up to 1.1 cm in diameter. The dilatation extends proximal to a peripancreatic fluid collection. No convincing choledocholithiasis. Susceptibility artifact from cholecystectomy clips noted. There is redemonstration of multiple peripancreatic fluid collections. The largest collection demonstrates intraluminal debris and measures 7.5 x 6.5 x 7.6 cm; this lesion has increased in size compared to prior CT 06/15/2017. More cephalad, there is a smaller collection without significant intraluminal debris measuring 6.1 x 3.7 x 6.0 cm, which has increased in size and conspicuity compared to prior CT scan. A third cystic lesion inferior to the largest lesion measures 4.7 x 3.6 x 3.7 cm; this demonstrates internal debris. There is mild pancreatic ductal dilatation within the body and tail extending to the larger more complex peripancreatic cyst. There is trace peripancreatic edema. No suspicious hepatic lesion. No evidence of hepatic steatosis. No splenomegaly. The adrenal glands are unremarkable. Redemonstration of a left renal cyst extending exophytically from the anterior upper pole. Bowel gas pattern is nonobstructive. No acute bowel pathology demonstrated. No bulky adenopathy. Trace bilateral pleural fluid. No suspicious osseous signal. IMPRESSION: 1. Three discrete peripancreatic lesions which have increased in size and conspicuity compared to CT scan 06/15/2017 (see tirado images). These may represent pseudocysts. A couple of these lesions demonstrate internal debris. Attention on followup recommended. 2. There is mild intrahepatic and extrahepatic biliary ductal prominence extending to the level of the largest peripancreatic cystic structure. This cystic structure may be causing a degree of obstruction, however the mild biliary ductal prominence is nonspecific status post cholecystectomy. No convincing choledocholithiasis. 3. Mild pancreatic ductal prominence, not significantly changed compared to exam 06/15/2017. Objective Vital Signs and I&Os Vital Signs Date Time Temp Pulse Resp B/P B/P Pulse O2 O2 Flow FiO2 Mean Ox Delivery Rate 07/21 0948 99 137/82 07/21 0618 98.8 99 20 137/82 94 07/20 2158 99.6 101 20 124/70 97 Room Air 07/20 1423 105 20 110/78 97 Room Air Intake & Output 07/21 1600 07/21 0400 07/20 1600 07/20 0400 07/19 1600 07/19 0400 Intake Total 248 414 6087 1100 2450 1125 Output Total 1000 Balance 602 485 4851 1100 1450 1125 Intake, IV 283 684 0471 1100 2450 1125 Intake, Oral 480 240 600 0 Output, Urine 1000 Patient 244 lb Weight Weight Reported by Patient Measurement Method Physical Exam General Appearance: alert, awake, comfortable Head: normal appearance Neck: supple, full range of motion Respiratory: normal breath sounds, no respiratory distress, lungs clear Cardiovascular: regular rate/rhythm, Normal S1 and S2 without rub, murmur or gallop Abdomen: soft, tenderness, decreased bowel sounds, tender in the epigastrium and LUQ without rebound or guarding Extremities: normal inspection, no edema, calf tenderness Neurologic/Psychiatric: oriented x 3, normal mood/affect Skin: intact, normal color, warm/dry Current Medications: Current Medications Sig/Anay Start time Last Medication Dose Route Stop Time Status Admin Heparin Sodium 5,000 UNIT Q8 07/19 1400 AC 07/21 (Porcine) SC 0506 Lactated Ringer's 1,000 ML Q8H 07/18 1930 DC 07/20 IV 07/21 1129 1616 Metoprolol Succinate 100 MG DAILY 07/19 1000 AC 07/21 PO 0948 Morphine Sulfate 4 MG Q3P PRN 07/19 1100 AC 07/21 IV 0947 Ondansetron HCl 4 MG Q6P PRN 07/18 1930 AC 07/18 IV 1933 Patient Medication 1 ED ONE ONE 07/20 1245 DC Teaching ED 07/20 1246 Potassium Chloride 40 MEQ ONCE ONE 07/21 1045 DC 07/21 PO 07/21 1046 1209 Results Pertinent Lab Results: Laboratory Tests 07/21 07/20 0813 0600 Chemistry Sodium (137 - 145 mmol/L) 137 Cancelled Potassium (3.5 - 5.1 mmol/L) 3.5 Cancelled Chloride (98 - 107 mmol/L) 98 Cancelled Carbon Dioxide (22 - 30 mmol/L) 26 Cancelled Anion Gap (5 - 16) 14 Cancelled BUN (7 - 17 mg/dL) 4 L Cancelled Creatinine (0.5 - 1.0 mg/dL) 0.4 L Cancelled Estimated GFR (>60 ml/min) > 60 BUN/Creatinine Ratio (7 - 25 %) 10.0 Cancelled Magnesium (1.6 - 2.3 mg/dL) Pending Cancelled Total Bilirubin (0.2 - 1.3 mg/dL) 0.5 Direct Bilirubin (< 0.4 mg/dL) 0.3 AST (14 - 36 U/L) 20 ALT (9 - 52 U/L) 21 Alkaline Phosphatase (<127 U/L) 129 H Total Protein (6.3 - 8.2 g/dL) 5.3 L Albumin (3.5 - 5.0 g/dL) 2.5 L Hematology CBC w Diff NO MAN DIFF REQ Cancelled WBC (4.8 - 10.8 /CUMM) 12.1 H Cancelled RBC (4.20 - 5.40 /CUMM) 3.72 L Cancelled Hgb (12.0 - 16.0 G/DL) 10.4 L Cancelled Hct (37 - 47 %) 31.9 L Cancelled MCV (81.0 - 99.0 FL) 85.7 Cancelled MCH (27.0 - 31.0 PG) 27.9 Cancelled MCHC (33.0 - 37.0 G/DL) 32.5 L Cancelled RDW (11.5 - 14.5 %) 14.8 H Cancelled Plt Count (130 - 400 /CUMM) 430 H Cancelled MPV (7.4 - 10.4 FL) 7.8 Cancelled Gran % (42.2 - 75.2 %) 80.9 H Lymphocytes % (20.5 - 51.1 %) 10.2 L Monocytes % (1.7 - 9.3 %) 4.9 Eosinophils % (0 - 5 %) 3.6 Basophils % (0.0 - 2.0 %) 0.4 Absolute Granulocytes (1.4 - 6.5 /CUMM) 9.8 H Absolute Lymphocytes (1.2 - 3.4 /CUMM) 1.2 Absolute Monocytes (0.10 - 0.60 /CUMM) 0.6 Absolute Eosinophils (0.0 - 0.7 /CUMM) 0.4 Absolute Basophils (0.0 - 0.2 /CUMM) 0.1 07/19 07/19 1030 0736 Chemistry Sodium (137 - 145 mmol/L) 137 Potassium (3.5 - 5.1 mmol/L) 4.2 Chloride (98 - 107 mmol/L) 101 Carbon Dioxide (22 - 30 mmol/L) 21 L Anion Gap (5 - 16) 15 BUN (7 - 17 mg/dL) 5 L Creatinine (0.5 - 1.0 mg/dL) 0.4 L Estimated GFR (>60 ml/min) > 60 BUN/Creatinine Ratio (7 - 25 %) 12.5 Phosphorus (2.5 - 4.5 mg/dL) 4.3 Magnesium (1.6 - 2.3 mg/dL) 1.5 L Total Bilirubin (0.2 - 1.3 mg/dL) 0.8 Direct Bilirubin (< 0.4 mg/dL) 0.4 AST (14 - 36 U/L) 23 ALT (9 - 52 U/L) 21 Alkaline Phosphatase (<127 U/L) 124 Total Protein (6.3 - 8.2 g/dL) 5.4 L Albumin (3.5 - 5.0 g/dL) 2.6 L Hematology CBC w Diff NO MAN DIFF REQ WBC (4.8 - 10.8 /CUMM) 13.9 H RBC (4.20 - 5.40 /CUMM) 3.76 L Hgb (12.0 - 16.0 G/DL) 10.5 L Hct (37 - 47 %) 32.6 L MCV (81.0 - 99.0 FL) 86.7 MCH (27.0 - 31.0 PG) 28.1 MCHC (33.0 - 37.0 G/DL) 32.4 L RDW (11.5 - 14.5 %) 14.6 H Plt Count (130 - 400 /CUMM) 407 H MPV (7.4 - 10.4 FL) 7.7 Gran % (42.2 - 75.2 %) 83.4 H Lymphocytes % (20.5 - 51.1 %) 8.0 L Monocytes % (1.7 - 9.3 %) 6.8 Eosinophils % (0 - 5 %) 1.7 Basophils % (0.0 - 2.0 %) 0.1 Absolute Granulocytes (1.4 - 6.5 /CUMM) 11.6 H Absolute Lymphocytes (1.2 - 3.4 /CUMM) 1.1 L Absolute Monocytes (0.10 - 0.60 /CUMM) 0.9 H Absolute Eosinophils (0.0 - 0.7 /CUMM) 0.2 Absolute Basophils (0.0 - 0.2 /CUMM) 0 / 02/04 2100 1523 Chemistry Lactic Acid Cancelled Urines Urine Color (YEL,AMB,STR) YEL Urine Clarity (CLEAR) CLEAR Urine pH (5.0 - 8.0) 6.0 Ur Specific [place] (1.001 - 1.035) 1.015 Urine Protein (NEG,<30 MG/DL) NEG Urine Ketones (NEG) >=80 Urine Nitrite (NEG) NEG Urine Bilirubin (NEG) NEG Urine Urobilinogen (0.1 - 1.0 EU/dl) 1.0 Ur Leukocyte Esterase (NEG) NEG Ur Microscopic SEDIMENT EXAMINED Urine WBC (0 - 2 /HPF) 1-3 H Ur Epithelial Cells (NONE,FEW) MANY H Urine Bacteria (NEG/NONE) MOD H Urine Mucus (FEW,NONE) RARE Urine Hemoglobin (NEG) TRACE-INTACT Urine Glucose (N MG/DL) NEG
[2017-07-21 14:54] VITALS: BP 132/80
[2017-07-21 22:33] VITALS: BP 122/82
[2017-07-22 06:59] VITALS: BP 125/82
--- NOTE | 2017-07-22 07:14 | PN- Housestaff ---
[place] 07/22/17 0713: Subjective Follow-up For: Recurrent alcoholic pancreatitis Pseudocyst pancreas Subjective: No overnight events. Patient remained afebrile overnight. Seen and examined this morning. She denied any chest pain, short of breath, nausea, vomiting, chills, fever and dysuria. She reported abdominal pain 6/10. And she required pain medication after every 3 hours last night. She is tolerating full liquid diet. Patient also reported having sensation of fullness in the belly. Review of Systems Constitutional: Reports: no symptoms. EENTM: Reports: no symptoms. Cardiovascular: Reports: no symptoms. Respiratory: Reports: no symptoms. Gastrointestinal: Reports: abdominal pain, bloating. Genitourinary: Reports: no symptoms. Neurological/Psychological: Reports: no symptoms. Objective Last 24 Hrs of Vital Signs/I&O Vital Signs Date Time Temp Pulse Resp B/P B/P Pulse O2 O2 Flow FiO2 Mean Ox Delivery Rate 07/22 0659 98.8 104 18 125/82 96 Room Air 07/21 2233 98.0 95 20 122/82 95 Room Air 07/21 1454 99.3 108 20 132/80 95 Room Air 07/21 0948 99 137/82 Intake & Output 07/22 1600 / 0800 02/08 0000 Intake Total 240 150 Output Total 350 Balance 240 -200 Intake, Oral 240 150 Output, Urine 350 Physical Exam General Appearance: Alert, Oriented X3, Cooperative Skin Temp/Moisture Exam: Warm/Dry Sepsis Skin Exam (color): Normal for Ethnicity HEENT: Atraumatic, PERRLA, EOMI Neck: Supple Cardiovascular: Normal S1, Normal S2 Lungs: Clear to Auscultation Abdomen: Soft, No Tenderness Neurological: Normal Speech, Strength at 5/5 X4 Ext, Normal Tone, Sensation Intact Extremities: No Edema Assessment/Plan Assessment: 47 YO F morbid obesity with PMH of HTN, HLD, anxiety, depression, panic attacks, post AP 1993, hx LLE DVT postop 1993 was on coumadin for a year, Hx of Choledocholithiasis and gallstone pancreatitis s/p laparoscopic cholecystectomy, necrotic pancreatitis (patient was transferred to [place]), recent admission in [facility] in June 2017 for another episode of acute pancreatitis, who presented today at the emergency room complaining of sudden onset epigastric and right upper quadrant abdominal pain. Patient is being followed on general medicine floor for acute recurrent pancreatitis. Acute recurrent pancreatitis with pancreatic pseudocyst: -IV hydration with Ringer's lactate at the rate of 100mL per hour for 24 hours. -full liquid diet. day 2 -IV antiemetics as needed -IV morphine to control pain. -Continue monitoring patient's vitals especially temperature and WBC count if she spikes fever again her WBC count goes up, we will repeat imaging studies and blood cultures again. -We will observe off antibiotics for now. -We will follow GI recommendations. History of hypertension and hyperlipidemia: -continue metoprolol and Lipitor. History of depression and anxiety: -Holding her home medications. DVT prophylaxis: Mechanical and Lovenox CODE STATUS: Full code Problem List: 1. Acute pancreatitis 2. Pseudocyst of pancreas Pain Ratin Pain Location: abdomen Pain Goal: Remain pain free Pain Plan: pain pathway Tomorrow's Labs & Rationales: cbc/bep Christo Nugent MD 07/22/17 1313: Attending MD Review Statement Attending Statement Attending MD Statement: examined this patient, discuss w/resident/PA/SPORTS MARKETING COORDINATOR, agreed w/resident/PA/SPORTS MARKETING COORDINATOR, reviewed EMR data (avail) Attending Assessment/Plan: 47F PMH HTN, HLD, anxiety, depression, history of choledocholithiasis and gallstone pancreatitis s/p laparoscopic cholecystectomy with recurrent pancreatitis, admitted with acute pancreatitis, found to have likely pseudocyst present which has decreased in size from a month ago. Initially febrile 100.6 on admission, possibly secondary to URI symptoms vs pancreatitis, afebrile since. Doing well today, pain controlled, vitals stable, labs reviewed. 1. Recurrent acute gallstone pancreatitis 2. Pancreatic pseudocyst Plan - Continue on general medicine - Continue full liquid diet - Morphine 4mg q3h PRN for pain, monitor for sedation - Monitor electrolytes and LFTs - Follow GI recommendations - DVT PPx
[2017-07-22 08:19] LABS: ABSOLUTE BASOPHIL COUNT 0.1 /CUMM (0.0-0.2); ABSOLUTE EOSINOPHIL COUNT 0.2 /CUMM (0.0-0.7); ABSOLUTE GRANULOCYTE CT 10.7 /CUMM (1.4-6.5); ABSOLUTE MONOCYTE COUNT 0.7 /CUMM (0.10-0.60); BASOPHIL % 0.6 % (0.0-2.0); EOSINOPHIL % 1.8 % (0-5); GRANULOCYTE % 84.4 % (42.2-75.2); MEAN CORPUSCULAR HGB 28.2 PG (27.0-31.0); MEAN CORPUSCULAR HGB CONC 32.8 G/DL (33.0-37.0); MEAN PLATELET VOLUME 7.7 FL (7.4-10.4); PLATELET COUNT 512 /CUMM (130-400); RBC DISTRIBUTION WIDTH 15.4 % (11.5-14.5); RED BLOOD CELL CT 3.73 /CUMM (4.20-5.40); WHITE BLOOD CELL COUNT 12.7 /CUMM (4.8-10.8)
[2017-07-22 14:04] VITALS: BP 140/82
[2017-07-22 22:37] VITALS: BP 113/83
[2017-07-23 06:30] VITALS: BP 125/65
--- NOTE | 2017-07-23 07:18 | PN- Housestaff ---
See Addendum Subjective Follow-up For: Acute on chronic pancreatitis Pseudocyst pancreas Subjective: No overnight events. Patient remained afebrile. Seen and examined this morning. Patient denied any chest pain, short of breath, nausea, vomiting, lightheadedness and dysuria. Patient reported having back pain 7/10, abdominal pain 5/10. Patient also reported having bloating sensation. Patient is tolerating full liquid diet. She is feeling anxious and having tachycardia. She reported palpitations. Usually at home patient was taking clonazepam for anxiety and palpitations. Yesterday EKG was done that was showing sinus tachycardia. Review of Systems Constitutional: Reports: no symptoms. EENTM: Reports: no symptoms. Cardiovascular: Reports: palpitations. Respiratory: Reports: no symptoms. Gastrointestinal: Reports: abdominal pain, bloating. Genitourinary: Reports: no symptoms. Musculoskeletal: Reports: back pain. Neurological/Psychological: Reports: no symptoms. Objective Last 24 Hrs of Vital Signs/I&O Vital Signs Date Time Temp Pulse Resp B/P B/P Pulse O2 O2 Flow FiO2 Mean Ox Delivery Rate 07/23 0630 97.7 116 18 125/65 98 Room Air 07/22 2237 98.7 109 20 113/83 95 Room Air 07/22 1415 115 08 1404 98.7 115 20 140/82 96 Room Air Intake & Output 07/23 1600 07/23 0800 07/23 0000 Intake Total 480 600 Output Total Balance 480 600 Intake, Oral 480 600 Physical Exam General Appearance: Alert, Oriented X3, Cooperative Skin Temp/Moisture Exam: Warm/Dry Sepsis Skin Exam (color): Normal for Ethnicity HEENT: Atraumatic, PERRLA, EOMI Neck: Supple Cardiovascular: Normal S1, Normal S2 Lungs: Clear to Auscultation Abdomen: Soft Neurological: Normal Speech, Strength at 5/5 X4 Ext, Normal Tone Extremities: No Edema Assessment/Plan Assessment: 47 YO F morbid obesity with PMH of HTN, HLD, anxiety, depression, panic attacks, post AP 1993, hx LLE DVT postop 1993 was on coumadin for a year, Hx of Choledocholithiasis and gallstone pancreatitis s/p laparoscopic cholecystectomy, necrotic pancreatitis (patient was transferred to [place]), recent admission in [facility] in June 2017 for another episode of acute pancreatitis, who presented today at the emergency room complaining of sudden onset epigastric and right upper quadrant abdominal pain. Patient is being followed on general medicine floor for acute recurrent pancreatitis. Acute on chronic pancreatitis with pancreatic pseudocyst: -IV antiemetics as needed -IV morphine to control pain. -Continue monitoring patient's vitals especially temperature and WBC count if she spikes fever again her WBC count goes up, we will repeat imaging studies and blood cultures again. -We will observe off antibiotics for now. -We will follow GI recommendations. -Patient tried regular diet but due to pain converted back to full liquid diet. History of hypertension and hyperlipidemia: -continue metoprolol and Lipitor. History of depression and anxiety: -Her home medications started yesterday. DVT prophylaxis: Mechanical and Lovenox CODE STATUS: Full code Problem List: 1. Pancreatitis 2. Pseudocyst of pancreas Pain Ratin Pain Location: back pain Pain Goal: Pain 4 or less Pain Plan: pain pathway Tomorrow's Labs & Rationales: cbc/bep
[2017-07-23] MEDS ORDERED: ZOFRAN4 M2 PO ×2 (10:41→11:33)
--- NOTE | 2017-07-23 10:48 | Patient Discharge Instructions ---
Discharge Instructions General Discharge Information You were seen/treated for: Acute on chronic pancreatitis Pseudocyst pancreas Watch for these problems: Increasing abdominal pain, increasing abdominal swelling, fever, chills, shortness of breath and increasing bloating sensation. If you experience any of these symptoms please come to ED or call to your primary care physician. Special Instructions: Follow up with your primary care physician in one week. Follow-up with your patient service coordinator in 1 week. Discussed with her for further management and for the pseudo-cyst pancreas. Diet Recommended Diet: Regular Activity Activity Self Limited: Yes Acute Coronary Syndrome Inclusion Criteria At DC or during hospital stay patient has or had the following: ACS DIAGNOSIS No Discharge Core Measures Meds if any: Prescribed or Continued at Discharge Meds if any: NOT Prescribed or Continued at Discharge Congestive Heart Failure Inclusion Criteria At DC or during hospital stay patient has or had the following: CHF DIAGNOSIS No Discharge Core Measures Meds if any: Prescribed or Continued at Discharge Meds if any: NOT Prescribed or Continued at Discharge Cerebrovascular accident Inclusion Criteria At DC or during hospital stay patient has or had the following: CVA/TIA Diagnosis No Discharge Core Measures Meds if any: Prescribed or Continued at Discharge Meds if any: NOT Prescribed or Continued at Discharge Venous thromboembolism Inclusion Criteria VTE Diagnosis No VTE Type NONE VTE Confirmed by (Test) NONE Discharge Core Measures - Per Current guidelines, there needs to be overlap - treatment for the first 5 days of Warfarin therapy. - If discharged on Warfarin prior to 5 days of - overlap therapy, the patient will need to be - assessed for post discharge needs including - *Post discharge parental anticoagulation - *Warfarin and/or parental anticoagulation education - *Follow up date to check INR post discharge At least 5 days overlap therapy as Inpatient No Meds if any: Prescribed or Continued at Discharge Note: Overlap Therapy is Warfarin and Anticoagulant Meds if any: NOT Prescribed or Continued at Discharge
--- NOTE | 2017-07-23 11:23 | PN- Student ---
Subjective Subjective: Patient seen and examined this morning. States that she did not sleep well and is feeling somewhat anxious. She would like to start her home medications. Her abdominal pain remains at 5/10. She also continues to complain of back pain. She also states that her stomach feels distended. She is able to eat a little. She says this is basically her baseline of the last few months. Objective Objective: Vital Signs Date Time Temp Pulse Resp B/P B/P Pulse O2 O2 Flow FiO2 Mean Ox Delivery Rate 07/23 1052 108 122/64 07/23 0934 108 122/64 07/23 0630 97.7 116 18 125/65 98 Room Air Physical Exam: General: alert and oriented, cooperative, mildly anxious appearing Lungs: clear to auscultation, non-labored breathing Cardiac: tachycardia, normal S1 and S2, no murmurs, rubs, or gallops Abdomen: tender in RUQ and epigastric area, mild distention, soft, no hepatosplenomegaly Results Results: Laboratory Tests 07/22/17 0704: Anion Gap 14, Estimated GFR > 60, BUN/Creatinine Ratio 12.0, Magnesium 1.7, CBC w Diff NO MAN DIFF REQ, RBC 3.73 L, MCV 86.0, MCH 28.2, MCHC 32.8 L, RDW 15.4 H, MPV 7.7, Gran % 84.4 H, Lymphocytes % 8.1 L, Monocytes % 5.1, Eosinophils % 1.8, Basophils % 0.6, Absolute Granulocytes 10.7 H, Absolute Lymphocytes 1.0 L , Absolute Monocytes 0.7 H, Absolute Eosinophils 0.2, Absolute Basophils 0.1 07/21/17 0813: Anion Gap 14, Estimated GFR > 60, BUN/Creatinine Ratio 10.0, Magnesium 1.6, Total Bilirubin 0.5, Direct Bilirubin 0.3, AST 20, ALT 21, Alkaline Phosphatase 129 H, Total Protein 5.3 L, Albumin 2.5 L, CBC w Diff NO MAN DIFF REQ, RBC 3.72 L, MCV 85.7, MCH 27.9, MCHC 32.5 L, RDW 14.8 H, MPV 7.8, Gran % 80.9 H, Lymphocytes % 10.2 L, Monocytes % 4.9, Eosinophils % 3.6, Basophils % 0.4, Absolute Granulocytes 9.8 H, Absolute Lymphocytes 1.2, Absolute Monocytes 0.6, Absolute Eosinophils 0.4, Absolute Basophils 0.1 Assessment/Plan Assessment: This is a 47 year old obese white female with a history of gallstone pancreatitis, necrotic pancreatitis, s/p laparoscopic cholecystectomy presenting for abdominal pain and fever. Physical exam shows epigastric and RUQ tenderness. Abdominal CT shows no new necrosis and lobulated pancreatic cyst in head reduced from last imaging, and peripancreatic inflammatory change. Labs on admission showed elevated alkaline phosphatase of 170, amylase of 1016, lipase of 5577, elevated CRP, WBC of 12.9, and anion gap metabolic acidosis of 19. Vital signs are stable. This is likely to be recurrent acute pancreatitis and she will be admitted to general medicine. Plan: Acute pancreatitis: -Clear liquid diet, will advance to full diet later today -Lactated Ringers fluid will be discontinued -Pain control with IV morphine PRN -Blood cultures showed no growth after day 1 -IV anti-emetics PRN -GI was consulted, recommendations are being followed Pancreatic pseudocyst: -Should be monitored with WBC count and temperature to see if becomes infected -WBC and temperature have remained stable Hypertension and hyperlipidemia: -Continue home medication of metoprolol 100 mg daily Anxiety/depression: -Restarted cymbalta yesterday, will start trazodone and clonazepam today DVT prophylaxis: -Mechanical and lovenox
--- NOTE | 2017-07-23 12:59 | PN- Gastroenterology ---
Assessment/Plan Assessment/Recommendations: ASSESSMENT: 1. Pancreatitis Acute on Chronic 2. Pancreatitic Pseudocyst with Walled Off Necrosis 3. Morbid Obesity RECOMMENDATIONS: 1. Discussed with Dr. Nugent. Patient should have decreased diet to clear-to- full liquids. Should not be discharge to home today or tomorrow. Would be hesitant to discharge prematurely as Ms. Kwok is not a complainer and may minimize her symptoms. 2. Pain Control 3. Diet as tolerated 4. I have called Dr. Adal Thomas at [facility]. Ms. Kwok is scheduled for outpatient cyst-gastrostomy on 08/05. However, if she is unable to be sent home safely with adequate pain control and ability tot take PO she may require [id number] transfer. I have discussed this with Dr. Nugent. 5. Dr. Erick Arevalo is covering over the weekend. Subjective Subjective: Patient with upper abdominal and LUQ pain after meal. Burning in quality. Exacerbated by movement. Was told she might have a UTI. No dysuria or hesitancy. Objective Vital Signs and I&Os Vital Signs Date Time Temp Pulse Resp B/P B/P Pulse O2 O2 Flow FiO2 Mean Ox Delivery Rate 07/23 1432 97.9 110 18 129/70 94 Room Air 07/23 1052 108 122/64 07/23 0934 108 122/64 07/23 0630 97.7 116 18 125/65 98 Room Air 07/22 2237 98.7 109 20 113/83 95 Room Air Intake & Output 07/23 1600 07/23 0400 07/22 1600 07/22 0400 07/21 1600 07/21 0400 Intake Total 0876 800 6465 150 1575 615 Output Total 350 Balance 3058 551 2429 -200 1575 615 Intake, IV 375 375 Intake, Oral 4426 473 2757 150 1200 240 Number 0 Bowel Movements Output, Urine 350 Patient 244 lb Weight Physical Exam General Appearance: well developed/nourished, no apparent distress Respiratory: normal breath sounds, chest non-tender, lungs clear Cardiovascular: regular rate/rhythm, Normal S1 and S2 without Rub, Murmur or Gallop Abdomen: normal bowel sounds, soft, tenderness, mild-to modest upper abdominal and LUQ tenderness without rebound or guarding Neurologic/Psychiatric: awake, alert, oriented x 3, normal mood/affect Skin: intact, normal color, warm/dry Current Medications: Current Medications Sig/Anay Start time Last Medication Dose Route Stop Time Status Admin Amlodipine Besylate 10 MG DAILY 07/23 1000 AC 07/23 PO 1052 Clonazepam 1 MG DAILY 07/23 1000 AC 07/23 PO 07/30 0944 0937 Duloxetine HCl 120 MG DAILY 07/21 1311 AC 07/23 PO 0934 Heparin Sodium 5,000 UNIT Q8 07/19 1400 AC 07/23 (Porcine) SC 0611 Metoprolol Succinate 100 MG DAILY 07/19 1000 AC 07/23 PO 0934 Morphine Sulfate 4 MG Q3P PRN 07/19 1100 AC 07/23 IV 1249 Ondansetron HCl 4 MG Q6P PRN 07/18 1930 AC 07/18 IV 1933 Trazodone HCl 25 MG QPM 07/23 2200 AC PO Results Pertinent Lab Results: Laboratory Tests 07/22 07/21 0704 0813 Chemistry Sodium (137 - 145 mmol/L) 135 L 137 Potassium (3.5 - 5.1 mmol/L) 4.3 3.5 Chloride (98 - 107 mmol/L) 97 L 98 Carbon Dioxide (22 - 30 mmol/L) 24 26 Anion Gap (5 - 16) 14 14 BUN (7 - 17 mg/dL) 6 L 4 L Creatinine (0.5 - 1.0 mg/dL) 0.5 0.4 L Estimated GFR (>60 ml/min) > 60 > 60 BUN/Creatinine Ratio (7 - 25 %) 12.0 10.0 Magnesium (1.6 - 2.3 mg/dL) 1.7 1.6 Total Bilirubin (0.2 - 1.3 mg/dL) 0.5 Direct Bilirubin (< 0.4 mg/dL) 0.3 AST (14 - 36 U/L) 20 ALT (9 - 52 U/L) 21 Alkaline Phosphatase (<127 U/L) 129 H Total Protein (6.3 - 8.2 g/dL) 5.3 L Albumin (3.5 - 5.0 g/dL) 2.5 L Hematology CBC w Diff NO MAN DIFF REQ NO MAN DIFF REQ WBC (4.8 - 10.8 /CUMM) 12.7 H 12.1 H RBC (4.20 - 5.40 /CUMM) 3.73 L 3.72 L Hgb (12.0 - 16.0 G/DL) 10.5 L 10.4 L Hct (37 - 47 %) 32.0 L 31.9 L MCV (81.0 - 99.0 FL) 86.0 85.7 MCH (27.0 - 31.0 PG) 28.2 27.9 MCHC (33.0 - 37.0 G/DL) 32.8 L 32.5 L RDW (11.5 - 14.5 %) 15.4 H 14.8 H Plt Count (130 - 400 /CUMM) 512 H 430 H MPV (7.4 - 10.4 FL) 7.7 7.8 Gran % (42.2 - 75.2 %) 84.4 H 80.9 H Lymphocytes % (20.5 - 51.1 %) 8.1 L 10.2 L Monocytes % (1.7 - 9.3 %) 5.1 4.9 Eosinophils % (0 - 5 %) 1.8 3.6 Basophils % (0.0 - 2.0 %) 0.6 0.4 Absolute Granulocytes (1.4 - 6.5 /CUMM) 10.7 H 9.8 H Absolute Lymphocytes (1.2 - 3.4 /CUMM) 1.0 L 1.2 Absolute Monocytes (0.10 - 0.60 /CUMM) 0.7 H 0.6 Absolute Eosinophils (0.0 - 0.7 /CUMM) 0.2 0.4 Absolute Basophils (0.0 - 0.2 /CUMM) 0.1 0.1
[2017-07-23 14:32] VITALS: BP 129/70
[2017-07-23 16:17] LABS: ABSOLUTE BASOPHIL COUNT 0 /CUMM (0.0-0.2); ABSOLUTE EOSINOPHIL COUNT 0.4 /CUMM (0.0-0.7); ABSOLUTE GRANULOCYTE CT 15.9 /CUMM (1.4-6.5); ABSOLUTE MONOCYTE COUNT 0.5 /CUMM (0.10-0.60); BASOPHIL % 0 % (0.0-2.0); EOSINOPHIL % 2.4 % (0-5); HEMATOCRIT 35.2 % (37-47); MEAN CORPUSCULAR HGB 27.1 PG (27.0-31.0); MEAN CORPUSCULAR HGB CONC 31.6 G/DL (33.0-37.0); MEAN CORPUSCULAR VOLUME 85.9 FL (81.0-99.0); MEAN PLATELET VOLUME 7.3 FL (7.4-10.4); PLATELET COUNT 644 /CUMM (130-400); RBC DISTRIBUTION WIDTH 15.4 % (11.5-14.5); RED BLOOD CELL CT 4.09 /CUMM (4.20-5.40); WHITE BLOOD CELL COUNT 17.8 /CUMM (4.8-10.8)
[2017-07-23 16:32] LABS: GRANULOCYTE % 89.2 % (42.2-75.2)
[2017-07-23 21:41] VITALS: BP 110/64
[2017-07-24 06:11] VITALS: BP 106/82
[2017-07-24 08:29] LABS: HEMATOCRIT 32.4 % (37-47); MEAN CORPUSCULAR HGB 27.9 PG (27.0-31.0); MEAN CORPUSCULAR HGB CONC 32.5 G/DL (33.0-37.0); MEAN CORPUSCULAR VOLUME 85.9 FL (81.0-99.0); MEAN PLATELET VOLUME 7.5 FL (7.4-10.4); PLATELET COUNT 569 /CUMM (130-400); RBC DISTRIBUTION WIDTH 15.4 % (11.5-14.5); RED BLOOD CELL CT 3.78 /CUMM (4.20-5.40); WHITE BLOOD CELL COUNT 15.4 /CUMM (4.8-10.8)
--- NOTE | 2017-07-24 09:19 | PN- Housestaff ---
See Addendum Kwaku BRUNNER,Ismail 07/24/17 0919: Subjective Follow-up For: -Acute on chronic pancreatitis -Pseudocyst pancreas Subjective: Afebrile, blood pressure in the low border of normal, saturating well on room air, tachycardic up to 110s. Overnight patient was complaining of worsening of her epigastric pain for which she was converted back to nothing by mouth. Yesterday patient was complaining of suprapubic pain for which she was repeated. Currently patient reported mild pain without nausea or vomiting. Review of Systems Constitutional: Denies: chills, fever, weakness. Cardiovascular: Denies: chest pain, orthopena, palpitations, peripheral edema. Respiratory: Denies: cough, short of breath. Gastrointestinal: Reports: abdominal pain, nausea, vomiting. Genitourinary: Denies: dysuria, frequency, hematuria. Objective Last 24 Hrs of Vital Signs/I&O Vital Signs Date Time Temp Pulse Resp B/P B/P Pulse O2 O2 Flow FiO2 Mean Ox Delivery Rate 07/24 1501 99.6 107 20 112/68 93 Room Air 07/24 1004 112 110/78 07/24 1000 98.7 112 18 110/78 96 Room Air Room Air 07/24 0611 98.9 106 20 106/82 93 07/24 0300 120 07/23 2141 97.7 140 18 110/64 96 Intake & Output 07/24 1600 07/24 0800 07/24 0000 Intake Total 1120 870 Output Total 350 Balance 1120 520 Intake, IV 880 150 Intake, Oral 240 720 Number 0 0 Bowel Movements Output, Urine 350 Physical Exam General Appearance: Alert, Oriented X3, Cooperative, No Acute Distress Skin: No Rashes HEENT: Atraumatic, PERRLA, EOMI, Mucous Membr. moist/pink Neck: No JVD Cardiovascular: Regular Rate, Normal S1, Normal S2, No Murmurs, tachy Lungs: Clear to Auscultation, Normal Air Movement Abdomen: Soft, epi and LUQ tenderness Neurological: Normal Speech Extremities: No Clubbing, No Cyanosis, No Edema Current Medications: Current Medications Sig/Anay Start time Last Medication Dose Route Stop Time Status Admin Amlodipine Besylate 10 MG DAILY 07/23 1000 AC 07/24 PO 1004 Clonazepam 1 MG 07/24 AC PO 07/31 2158 Clonazepam 1 MG DAILY 07/23 1000 DC 07/23 PO 07/30 0944 0937 Duloxetine HCl 120 MG DAILY 07/21 1311 AC 07/24 PO 1005 Heparin Sodium 5,000 UNIT Q8 07/19 1400 AC 07/24 (Porcine) SC 1302 Hydromorphone HCl 0.6 MG Q4P PRN 07/24 1130 AC 07/24 IV 1301 Magnesium Oxide 400 MG ONE ONE 07/23 1545 DC 07/23 PO 07/23 1546 1705 Metoprolol Succinate 100 MG DAILY 07/19 1000 AC 07/24 PO 1000 Morphine Sulfate 4 MG Q3P PRN 07/19 1100 DC 07/24 IV 1002 Ondansetron HCl 4 MG .STK-MED ONE 07/23 2135 DC IM 07/23 213 Ondansetron HCl 4 MG Q6P PRN 07/18 1930 DC 07/23 IV 2139 Promethazine HCl 25 MG ONCE PRN 07/24 0400 AC 07/24 IV 07/31 0359 0503 Sodium Chloride 1,000 ML Q13H 07/23 1745 AC 07/24 IV 0505 Trazodone HCl 25 MG QPM 07/23 2200 AC 07/23 PO 2139 Trimethobenzamide HCl 200 MG TID 07/24 0038 AC 07/24 IM 1006 Last 24 Hrs of Lab/Dangelo Results Last 24 Hrs of Labs/Mics: Laboratory Tests 07/24/17 0659: Anion Gap 10, Estimated GFR > 60, BUN/Creatinine Ratio 22.0, CBC w Diff MAN DIFF ORDERED, RBC 3.78 L, MCV 85.9, MCH 27.9, MCHC 32.5 L, RDW 15.4 H, MPV 7.5, Segmented Neutrophils 76 H, Band Neutrophils 1, Lymphocytes 13 L, Monocytes 3, Eosinophils 6 H, Basophils 1, Platelet Estimate INCREASED, Hypochromic- Microcytic 1+, Anisocytosis 1+ 07/23/172149: Urinalysis HEAVY H, Urine Color RADHA, Urine Clarity CLDY H, Urine pH 6.0, Ur Specific Palms >= 1.030, Urine Protein 30 H, Urine Ketones 40 H, Urine Nitrite POS H, Urine Bilirubin NEG@ICTO, Urine Urobilinogen 1.0, Ur Leukocyte Esterase TRACE H, Ur Microscopic SEDIMENT EXAMINED, Urine RBC RARE, Urine WBC 1 -3 H, Ur Epithelial Cells MOD H, Urine Crystals 3+ CA OX H, Urine Bacteria MOD H, Urine Mucus RARE, Urine Hemoglobin NEG, Urine Glucose NEG 07/23/17 1556: Anion Gap 10, Estimated GFR > 60, BUN/Creatinine Ratio 18.0, Magnesium 1.7, CBC w Diff NO MAN DIFF REQ, RBC 4.09 L, MCV 85.9, MCH 27.1, MCHC 31.6 L, RDW 15.4 H, MPV 7.3 L, Gran % 89.2 H, Lymphocytes % 5.7 L, Monocytes % 2.7, Eosinophils % 2.4, Basophils % 0, Absolute Granulocytes 15.9 H, Absolute Lymphocytes 1.0 L, Absolute Monocytes 0.5, Absolute Eosinophils 0.4, Absolute Basophils 0 Microbiology 07/230 URINE ROUT: Urine Culture - RES Assessment/Plan Assessment: This is 47 year female who was admitted on the early May last year for acute gallstone pancreatitis. Since discharge patient had multiple recurrent abdominal pain, nausea, and vomiting. She was found to have pseudocyst. It's not clear why she has the recurrent pancreatitis given there is no symptom or sign suggestive of secondary infection. Plan #Acute pancreatic complicated by pseudocyst: * IV antiemetics as needed * We will switch IV morphine to IV Dilaudid 0.6 every 4 hours as needed * Patient is willing to try clear liquid again * GI is planning outpatient cyst-gastrostomy on 08/05/17. * If the patient is not tolerating by mouth, she may get transfer from hospital to hospital to do the procedure. * GI recommendations highly appreciated #History of HTN, HLD, depression, and anxiety * continue metoprolol * Continue amlodipine * Lipitor * Continue clonazepam * Continue trazodone * Continue duloxetine -DVT PPX: Mechanical and heparin subcutaneous -Clear liquid diet -Full code Problem List: 1. Pancreatitis 2. Acute pancreatitis Pain Ratin Pain Location: epigastric Pain Goal: Remain pain free Pain Plan: See A&P Tomorrow's Labs & Rationales: CBC and BEP Christo Nugent MD 07/24/17 1154: Attending MD Review Statement Attending Statement Attending MD Statement: examined this patient, discuss w/resident/PA/ELECTRICAL DESIGN TECHNICIAN, agreed w/resident/PA/ELECTRICAL DESIGN TECHNICIAN, reviewed EMR data (avail) Attending Assessment/Plan: 47F PMH HTN, HLD, anxiety, depression, history of choledocholithiasis and gallstone pancreatitis s/p laparoscopic cholecystectomy with recurrent pancreatitis, admitted with acute pancreatitis, found to have likely pseudocyst present which has decreased in size from a month ago. Initially febrile 100.6 on admission, possibly secondary to URI symptoms vs pancreatitis, afebrile since. Abdominal pain worsening today, appears more ill, abdomen more tender. 1. Recurrent acute gallstone pancreatitis 2. Pancreatic pseudocyst Plan - Continue on general medicine - NPO, can try clear liquid diet if wishes - Dilaudid PRN - Monitor electrolytes and LFTs - Follow GI recommendations - DVT PPx
--- NOTE | 2017-07-24 09:20 | PN- Housestaff ---
Assessment/Plan Assessment: 47 YO F morbid obesity with PMH of HTN, HLD, anxiety, depression, panic attacks, post AP 1993, hx LLE DVT postop 1993 was on coumadin for a year, Hx of Choledocholithiasis and gallstone pancreatitis s/p laparoscopic cholecystectomy, necrotic pancreatitis (patient was transferred to [facility]), recent admission in in June 2017 for another episode of acute pancreatitis, who presented today at the emergency room complaining of sudden onset epigastric and right upper quadrant abdominal pain. Patient is being followed on general medicine floor for acute recurrent pancreatitis. Acute on chronic pancreatitis with pancreatic pseudocyst: -IV antiemetics as needed -IV morphine to control pain. -Continue monitoring patient's vitals especially temperature and WBC count if she spikes fever again her WBC count goes up, we will repeat imaging studies and blood cultures again. -We will observe off antibiotics for now. -We will follow GI recommendations. -Patient tried regular diet but due to pain converted back to full liquid diet. History of hypertension and hyperlipidemia: -continue metoprolol and Lipitor. History of depression and anxiety: -Her home medications started yesterday. DVT prophylaxis: Mechanical and Lovenox CODE STATUS: Full code
[2017-07-24 10:00] VITALS: BP 110/78
--- NOTE | 2017-07-24 12:43 | PN- Gastroenterology ---
Assessment/Plan Assessment/Recommendations: (*The patient was seen in inpatient GI coverage for Dr. Canela. *Extensive records reviewed, cuurently HD #7, as of 07/24/17. *Please refer to multiple recent inpt GI consults by myself, Dr. Cordoba, & Dr. Canela, from 05/22/17, 06/09/17, 06/15/17, & most recently, 07/19/17). 47 y/o female, morbid obesity, HTN, HLD, anxiety, depression, panic attacks, post AP 1993, hx LLE DVT postop 1993 (on Coumadin x 1 & 1/2 yrs then), with multiple admissions in the recent past for recurrent pancreatitis, excact etiology unclear. She was hospitalized at [facility] 05/21/17-05/28/17 for gallstone pancreatitis in the setting of elevated LFTs, at which point, her lipase was 9421. She had extensive imaging studies then (*see below). There was no evidence of choledocholithiasis. She ultimately underwent 05/26/17: Lap CCKY & her sx subsided then. She had outpt pre-bariatric 05/19/17: EGD by Dr. Canela prior to her last admission, revealing multiple fundic gland polyps in the body & fundus. Bxs of the gastric polyps revealed multiple benign fundic gland hyperplastic polyps, HP-negative. Bxs of the gastric antrum & fundus revealed mild CAG, HP-neg, mild CFG, HP-neg. She was subsequently seen in covering inpt GI consultation by Dr. Cordoba 05/22/17 for the gallstone pancreatitis. She denied any new medications, regarding her pancreatitis. None of her outpt BP or psychiatric medications were reported to cause this. She denied any Sulfa meds (allergic), NSAIDS, or HCTZ. She denied any jaundice, dark urine, light stools, or pruritus. She denied any hx PUD. She denied any FHx of GI Ca, GI disease, GBD, inherited pancreatitis, or inherited liver disease, aside from her elderly PGA having late onset colon Ca in her 80's. The patient claimed a colonoscopy done at [facility] in 1989 at age 20 for rectal bleeding then was negative. She denied any cigarette smoking, significant EtOH, or illicit drug use. (*She had not yet had her bariatric surgery, which was put on hold by her recurrent pancreatitis). *She has had relatively recent normal TG. *Numerous imaging studies have failed to reveal any retained CBD stone, post CCKY. Recent EGD without PUD as a source for the pancreatitis (i.e.- no penetrating ulcer). *She had 06/10/17: normal IgG4 = 22, going against autoimmune pancreatitis. *The patient was transferred to [facility] 06/10/17, as pancreatic aspiration via EUS was advised by the ID service, given the probability of pancreatic necrosis, as IR at [facility] was unable to perform this. However, no drainage procedure was done then at [facility]. She was then readmitted to [facility] twice over the past 2 months for pancreatitis , most recently on 07/19/17, when she was seen in covering GI consultation by Dr. Cordoba, for Dr. Lechuga. *She was readmitted to [facility] 07/18/17, with worsening abdominal pain which radiated to the RUQ, with associated low-grade temp 101. Admission CT did not show any new areas of necrosis or significant fluid collections, but did show worsening pancreatitis. She was treated conservatively with IV fluids, initial NPO, & narcotic analgesics. She was observed off antibiotics. 05/13/17: US ABDOMEN LIMITED- 1. Limited examination secondary to overlying bowel gas and patient body habitus. The pancreas was not clearly visualized and the liver had poor penetration, limiting evaluation. 2. Cholelithiasis. No other sonographic evidence to suggest acute cholecystitis. Clinical correlation recommended. 05/21/17: CT ABD & PELVIS W IV CONTRAST- 1. Acute pancreatitis complicated by peripancreatic effusions. 2. Effusions located in the anterior pararenal spaces, lesser sac, the mesocolon and also the mesenteric root. 3. Normal liver. No dilated ducts. (The patient is known to have gallstones by the recent ultrasound exam). 4. Post AP. 5. 2.3 cm functional left ovarian cyst. 6. DJD L5-S1. 05/22/17: US ABDOMEN LIMITED- 1. Limited assessment due to patient's body habitus and bowel gas. Visualized organs are suboptimally seen. Pancreas is not visualized at all. 2. Cholelithiasis again demonstrated with no evidence of acute cholecystitis or biliary obstruction 3. Hepatic steatosis. No definite hepatic mass seen though evaluation of liver is limited. 05/22/17: MR ABDOMEN WITHOUT CONTRAST/MRCP- 1. Above findings are consistent with acute interstitial pancreatitis involving the pancreatic head and proximal body with prominent peripancreatic edema, which extends into the anterior pararenal space, lateral paracolic gutters and around the liver and spleen. No walled off fluid collection is seen. Without the benefit of intravenous contrast, pancreatic necrosis cannot be excluded. Continued close clinical follow up is recommended with additional assessment as clinically appropriate. 2. Cholelithiasis is seen. No evidence of acute cholecystitis. 3. Pancreatic edema causes significant extrinsic impression upon the common bile duct in the pancreatic head, causing mild distention of the proximal common bile duct to 0.8 cm. No evidence of choledocholithiasis or other mass seen. 4. Upper pole left renal cyst. 06/09/17: CT ABD & PELVIS ANGIOGRAM; CTA CHEST-PULMONARY EMBOLISM- 1. No pulmonary embolism. No acute findings within the chest. 2. 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 *A new region of necrosis is present within the pancreatic head and neck (acute necrotic collection) occupying an area measuring approximately 4.8 cm transverse, 3.8 cm AP. 3. The abdominal aorta is normal. 4. Status post cholecystectomy; no evidence of biloma. *She has since had numerous additional imaging studies: 06/10/17: MR ABDOMEN WITHOUT AND WITH CONTRAST- 1. Acute pancreatitis and *acute necrotic collection, as noted above (and on the CT exam of 06/09/2017). There is peripancreatic edema and fluid without an organized, rim- enhancing collection. Small volume of ascites is present in the abdomen. There are trace bilateral pleural effusions. 2. No evidence of choledocholithiasis in this patient who is recently status * post cholecystectomy. 06/15/17: CT ABD & PELVIS W IV CONTRAST- Similar appearance of the pancreas to the previous study, with area of walled off necrosis involving the pancreatic head and neck. Decreasing but persistent adjacent inflammatory changes. Mild prominence of the pancreatic duct is also unchanged. No new fluid collection. Trace bilateral pleural effusions with atelectasis, increased from prior. 06/15/17: XRY-PORTABLE CHEST XRAY- Unremarkable examination. 06/19/17: US-COMPLETE ABDOMEN- The liver is diffusely echogenic and sound attenuating consistent with diffuse hepatic steatosis. There is hepatomegaly as well. No biliary ductal dilatation however. Status post cholecystectomy. Ill-defined hypoechogenicity in the region of the pancreatic head is consistent with the previously seen pancreatic fluid collection. If the patient has had pancreatitis for 4+ weeks, this would be a pseudocyst. 06/21/17: MR ABDOMEN WITHOUT CONTRAST (MRCP)- 1. *Three discrete peripancreatic lesions which have increased in size and conspicuity compared to CT scan 06/15/2017 (see tirado images). These may represent pseudocysts. A couple of these lesions demonstrate internal debris. Attention on followup recommended. 2. There is mild intrahepatic and extrahepatic biliary ductal prominence extending to the level of the largest peripancreatic cystic structure. This cystic structure may be causing a degree of obstruction, however the mild biliary ductal prominence is nonspecific status post cholecystectomy. No convincing choledocholithiasis. 3. Mild pancreatic ductal prominence, not significantly changed compared to exam 06/15/2017. 07/18/17: XRY-PORTABLE CHEST XRAY- Limited study, no acute infiltrates. 07/18/17: CT ABD & PELVIS W IV CONTRAST- *No suspected new areas of pancreatic necrosis. Lobulated pancreatic cystic collection has decreased slightly in size, compared with the MRI 06/21/2017. However the immediately generalized surrounding inflammatory change may have increased slightly, but without any new discrete fluid collection. Additional findings including left renal cyst and degenerative disc disease, unchanged. 07/19/17: US-LIMITED ABDOMEN- Poorly-imaged cystic mass within the head/body of the pancreas measuring at least 4.2 x 4.7 x 7.6 cm. This corresponds to the mass seen on CT scan and MRI. No PD dilitation. Normal liver. Post CCKY. No dilated IHD. CBD 5 mm. Normal right kidney. No ascites. 05/22/17: *TG 83 06/10/17: *normal IgG4 = 22, going against autoimmune pancreatitis. 07/18/17: amylase/lipase 1016/5577, Ca 9.1, troponin < 0.01, serum HCG- neg, * CRP > 9.0 07/19/17: PO4 4.3 07/21/17: albumin 2.5, globulin 2.8, TBil 0.5, DBil 0.3, alk phos 129. AST 20, ALT 21 07/23/17: Mg 1.7 07/24/17: WBC 15.4 (76S/1B/13L/3M/6E/1Baso), H/H 10.5/32.4, MCV 85.9, RDW 15.4, PLT 569, BUN/Cr 11/0.5, GFR > 60, Na 133, K 4.3, HCO3 29, AG 10 *As of 07/24/17, the patient was mildly tachycardic and normotensive. She was afebrile, with T 98.7 (w/o abx) & O2 sat RA 96%. Numerous cultures remain negative, including influenza A/B, BC, & UC. She remained with leukocytosis. She was not hemoconcentrated by Hgb. She had been on IV Morphine, last given 10:02 a.m. on 07/24/17, which was switched to IV Dilaudid. Zofran was D/C on 07/24/17. Her other medications include Tigan, Phenergan, Trazodone, Amlodipine, Cymbalta, Toprol, Clonazepam, & sc Heparin. She was currently on IV NS @ 75 cc/hr (as opposed to Lactated Ringers, with mild hypoNa+). She had burning epigastric/LUQ pain after a full liquid diet, & was cut back to clears po. She still had some nausea. She denied any vomiting. She denies any chills, jaundice, CP, or SOB. She had no symptoms of UTI or URI. She had been ambulating in her room. *Recurrent pancreatitis, acute on chronic, exact etiology unknown. Normal TG, normal LFTs (aside from poor synthetic function), normal IgG 4, post-CCKY. Numerous imaging studies were without choledocholithiasis. Pancreatic pseudocyst with suggestion of walled off pancreatic necrosis, although never needled. The patient was not on antibiotics. She had leukocytosis, but no temperature spikes, with multiple cultures negative. *SUGGEST: Clears po as tolerated. IVF (currently NS @ 75 cc/hr, as opposed to Lactated Ringers, with mild hypoNa+). If poor po intake, would increase rate of IVF, watching for hemoconcentration (i.e.- rising Hgb or BUN), which would be a poor prognostic sign. Follow-up CBC & lytes. *Consider checking prealbumin. Strict I /O's. O2 as needed. Analgesics as needed. Antiemetics as needed. Avoid NSAIDS. Continue to observe as inpatient. Dr. Canela had spoken to Dr. Adal Thomas, of [facility]. The patient had been scheduled for outpatient cyst-gastrostomy on . If, however, her pain was not adequately controlled, or she was not able to adequately maintain her nutritional status with po intake, she may require hospital-to- hospital transfer. Other considerations could be J-tube feeds vs. TPN, depending on her caloric intake. As no clear etiology for pancreatitis had definitely been found, consideration for genetic testing (i.e.- SPINK mutation, PRSS-1, CFTR, etc.), although the patient is probably a little old for this. Further GI recommendations to follow, depending on clinical course. The patient is to follow-up with her usual GI MD, Dr. Canela, after D/ C vs. transfer. Problem List: 1. Pancreatitis 2. Pseudocyst of pancreas 3. Nausea & vomiting 4. Abdominal pain 5. Malnutrition 6. Morbid obesity 7. Status post laparoscopic cholecystectomy Subjective Subjective: *Extensive records reviewed (*see A&P). The patient was seen in GI coverage for Dr. Canela, HD #7. 05/22/17: *TG 83 06/10/17: *normal IgG4 = 22, going against autoimmune pancreatitis. 07/18/17: amylase/lipase 1016/5577, Ca 9.1, troponin < 0.01, serum HCG- neg, * CRP > 9.0 07/19/17: PO4 4.3 07/21/17: albumin 2.5, globulin 2.8, TBil 0.5, DBil 0.3, alk phos 129. AST 20, ALT 21 07/23/17: Mg 1.7 07/24/17: WBC 15.4 (76S/1B/13L/3M/6E/1Baso), H/H 10.5/32.4, MCV 85.9, RDW 15.4, PLT 569, BUN/Cr 11/0.5, GFR > 60, Na 133, K 4.3, HCO3 29, AG 10 *As of 07/24/17, the patient was mildly tachycardic and normotensive. She was afebrile, with T 98.7 (w/o abx) & O2 sat RA 96%. Numerous cultures remain negative, including influenza A/B, BC, & UC. She remained with leukocytosis. She was not hemoconcentrated by Hgb. She had been on IV Morphine, last given 10:02 a.m. on 07/24/17, which was switched to IV Dilaudid. Zofran was D/C on 07/24/17. Her other medications include Tigan, Phenergan, Trazodone, Amlodipine, Cymbalta, Toprol, Clonazepam, & sc Heparin. She was currently on IV NS @ 75 cc/hr (as opposed to Lactated Ringers, with mild hypoNa+). She had burning epigastric/LUQ pain after a full liquid diet, & was cut back to clears po. She still had some nausea. She denied any vomiting. She denies any chills, jaundice, CP, or SOB. She had no symptoms of UTI or URI. She had been ambulating in her room. Review of Systems: Review of Systems: Full 14 point ROS otherwise non-contributory & as per HPI. Constitutional: Reports: no symptoms EENTM: Reports: no symptoms. Cardiovascular: Reports: no symptoms. Respiratory: Reports: see HPI. GI: Reports: abdominal pain, nausea Genitourinary: Reports: no symptoms. Musculoskeletal: Reports: no symptoms. Skin: Reports: no symptoms. Neurological/Psychological: Reports: no symptoms (stable anxiety, depression, & panic attacks). Hematologic/Endocrine: Reports: no symptoms. All Other Systems: Reviewed and Negative Objective Vital Signs and I&Os Vital Signs Date Time Temp Pulse Resp B/P B/P Pulse O2 O2 Flow FiO2 Mean Ox Delivery Rate 07/24 1004 112 110/78 07/24 1000 98.7 112 18 110/78 96 Room Air Room Air 07/24 0611 98.9 106 20 106/82 93 07/24 0300 120 07/23 2141 97.7 140 18 110/64 96 07/23 1432 97.9 110 18 129/70 94 Room Air Intake & Output 07/24 1600 07/24 0400 07/23 1600 07/23 0400 07/22 1600 07/22 0400 Intake Total 5461 713 9253 600 1240 150 Output Total 350 350 Balance 6583 807 4220 600 1240 -200 Intake, IV 880 150 Intake, Oral 140 789 1597 600 1240 150 Number 0 0 Bowel Movements Output, Urine 350 350 Physical Exam: Well-developed, well-nourished, pleasant, obese female, nontoxic appearing, in no apparent distress. Sclera anicteric. Conjunctiva pink. Oropharynx clear. No oral thrush. No aphthous ulcers. There is no adenopathy, thyromegaly, or JVD. No peripheral stigmata of inflammatory bowel disease or chronic liver disease on exam. No spiders on the anterior chest wall. Breast & pelvic exams: API. No CVA tenderness. No point spine tenderness. Lungs: clear to A&P, except for slight decreased BS at the bases B/L. No wheezing, rales, or rhonchi. Heart exam: slightly tachycardic, regular rate rhythm, S1 and S2, without any murmur. Abdominal exam: normal bowel sounds, soft belly, epigastric > LUQ tenderness, without guarding or rebound. No mass. No definite organomegaly. No fluid shift. No pulsatile mass. No epigastric bruit. Port sites healed. Digital rectal exam: deferred by patient. Extremities: without cyanosis or clubbing. < 1 + peripheral edema B/L LE, L > R (chronic). No palpable cords. No rash. Mild DJD. No acute arthropathy. No palmar erythema. No Dupuytren's contractures. Distal pulses 2+ bilaterally. DTRs 2+ bilaterally. Alert and oriented x 3. Motor 5/5 B/L. No tremor. No asterixis. A detailed exam for peripheral neuropathy was deferred. Current Medications: Current Medications Sig/Anay Start time Last Medication Dose Route Stop Time Status Admin Amlodipine Besylate 10 MG DAILY 07/23 1000 AC 07/24 PO 1004 Clonazepam 1 MG 2200 07/24 220 AC PO 07/31 2159 Clonazepam 1 MG DAILY 07/23 1000 DC 07/23 PO 07/30 0944 0937 Duloxetine HCl 120 MG DAILY 07/21 1311 AC 07/24 PO 1005 Heparin Sodium 5,000 UNIT Q8 07/19 1400 AC 07/24 (Porcine) SC 1302 Hydromorphone HCl 0.6 MG Q4P PRN 07/24 1130 AC 07/24 IV 1301 Magnesium Oxide 400 MG ONE ONE 07/23 1545 DC 07/23 PO 07/23 1546 1705 Metoprolol Succinate 100 MG DAILY 07/19 1000 AC 07/24 PO 1000 Morphine Sulfate 4 MG Q3P PRN 07/19 1100 DC 07/24 IV 1002 Ondansetron HCl 4 MG .STK-MED ONE 07/236 DC IM 07/23 2136 Ondansetron HCl 4 MG Q6P PRN 07/18 1930 DC 07/23 IV 2139 Promethazine HCl 25 MG ONCE PRN 07/24 0400 AC 07/24 IV 07/31 0359 0503 Sodium Chloride 1,000 ML Q13H 07/23 1745 AC 07/24 IV 0505 Trazodone HCl 25 MG QPM 07/23 2200 AC 07/23 PO 2139 Trimethobenzamide HCl 200 MG TID 07/24 0038 AC 07/24 IM 1006 Results Pertinent Lab Results: Laboratory Tests 07/24 07/23 0659 2150 Chemistry Sodium (137 - 145 mmol/L) 133 L Potassium (3.5 - 5.1 mmol/L) 4.3 Chloride (98 - 107 mmol/L) 95 L Carbon Dioxide (22 - 30 mmol/L) 29 Anion Gap (5 - 16) 10 BUN (7 - 17 mg/dL) 11 Creatinine (0.5 - 1.0 mg/dL) 0.5 Estimated GFR (>60 ml/min) > 60 BUN/Creatinine Ratio (7 - 25 %) 22.0 Hematology CBC w Diff MAN DIFF ORDERED WBC (4.8 - 10.8 /CUMM) 15.4 H RBC (4.20 - 5.40 /CUMM) 3.78 L Hgb (12.0 - 16.0 G/DL) 10.5 L Hct (37 - 47 %) 32.4 L MCV (81.0 - 99.0 FL) 85.9 MCH (27.0 - 31.0 PG) 27.9 MCHC (33.0 - 37.0 G/DL) 32.5 L RDW (11.5 - 14.5 %) 15.4 H Plt Count (130 - 400 /CUMM) 569 H MPV (7.4 - 10.4 FL) 7.5 Segmented Neutrophils (42.2 - 75.2 %) 76 H Band Neutrophils (0.0 - 5.0 %) 1 Lymphocytes (20.5 - 51.1 %) 13 L Monocytes (1.7 - 9.3 %) 3 Eosinophils (0 - 5.0 %) 6 H Basophils (0.0 - 2.0 %) 1 Platelet Estimate (ADEQUATE) INCREASED Hypochromic-Microcytic 1+ Anisocytosis 1+ Urines Urinalysis HEAVY H Urine Color (YEL,AMB,STR) RADHA Urine Clarity (CLEAR) CLDY H Urine pH (5.0 - 8.0) 6.0 Ur Specific [place] (1.001 - 1.035) >= 1.030 Urine Protein (NEG,<30 MG/DL) 30 H Urine Ketones (NEG) 40 H Urine Nitrite (NEG) POS H Urine Bilirubin (NEG) NEG@ICTO Urine Urobilinogen (0.1 - 1.0 EU/dl) 1.0 Ur Leukocyte Esterase (NEG) TRACE H Ur Microscopic SEDIMENT EXAMINED Urine RBC (0 - 5 /HPF) RARE Urine WBC (0 - 2 /HPF) 1-3 H Ur Epithelial Cells (NONE,FEW) MOD H Urine Crystals 3+ CA OX H Urine Bacteria (NEG/NONE) MOD H Urine Mucus (FEW,NONE) RARE Urine Hemoglobin (NEG) NEG Urine Glucose (N MG/DL) NEG 07/23 07/23 1556 1455 Chemistry Sodium (137 - 145 mmol/L) 134 L Potassium (3.5 - 5.1 mmol/L) 5.2 H Chloride (98 - 107 mmol/L) 93 L Carbon Dioxide (22 - 30 mmol/L) 32 H Anion Gap (5 - 16) 10 BUN (7 - 17 mg/dL) 9 Creatinine (0.5 - 1.0 mg/dL) 0.5 Estimated GFR (>60 ml/min) > 60 BUN/Creatinine Ratio (7 - 25 %) 18.0 Magnesium (1.6 - 2.3 mg/dL) 1.7 Hematology CBC w Diff NO MAN DIFF REQ WBC (4.8 - 10.8 /CUMM) 17.8 H RBC (4.20 - 5.40 /CUMM) 4.09 L Hgb (12.0 - 16.0 G/DL) 11.1 L Hct (37 - 47 %) 35.2 L MCV (81.0 - 99.0 FL) 85.9 MCH (27.0 - 31.0 PG) 27.1 MCHC (33.0 - 37.0 G/DL) 31.6 L RDW (11.5 - 14.5 %) 15.4 H Plt Count (130 - 400 /CUMM) 644 H MPV (7.4 - 10.4 FL) 7.3 L Gran % (42.2 - 75.2 %) 89.2 H Lymphocytes % (20.5 - 51.1 %) 5.7 L Monocytes % (1.7 - 9.3 %) 2.7 Eosinophils % (0 - 5 %) 2.4 Basophils % (0.0 - 2.0 %) 0 Absolute Granulocytes (1.4 - 6.5 /CUMM) 15.9 H Absolute Lymphocytes (1.2 - 3.4 /CUMM) 1.0 L Absolute Monocytes (0.10 - 0.60 /CUMM) 0.5 Absolute Eosinophils (0.0 - 0.7 /CUMM) 0.4 Absolute Basophils (0.0 - 0.2 /CUMM) 0 Urines Urinalysis LIGHT H Urine Color (YEL,AMB,STR) RADHA Urine Clarity (CLEAR) CLDY H Urine pH (5.0 - 8.0) 6.0 Ur Specific [place] (1.001 - 1.035) >= 1.030 Urine Protein (NEG,<30 MG/DL) 30 H Urine Ketones (NEG) 15 H Urine Nitrite (NEG) NEG Urine Bilirubin (NEG) NEG@ICTO Urine Urobilinogen (0.1 - 1.0 EU/dl) 1.0 Ur Leukocyte Esterase (NEG) SMALL H Ur Microscopic SEDIMENT EXAMINED Urine RBC (0 - 5 /HPF) RARE Urine WBC (0 - 2 /HPF) 10-15 H Ur Epithelial Cells (NONE,FEW) MANY H Urine Crystals 4+ CA OX H Urine Bacteria (NEG/NONE) MOD H Urine Hemoglobin (NEG) NEG Urine Glucose (N MG/DL) NEG 07/22 0704 Chemistry Sodium (137 - 145 mmol/L) 135 L Potassium (3.5 - 5.1 mmol/L) 4.3 Chloride (98 - 107 mmol/L) 97 L Carbon Dioxide (22 - 30 mmol/L) 24 Anion Gap (5 - 16) 14 BUN (7 - 17 mg/dL) 6 L Creatinine (0.5 - 1.0 mg/dL) 0.5 Estimated GFR (>60 ml/min) > 60 BUN/Creatinine Ratio (7 - 25 %) 12.0 Magnesium (1.6 - 2.3 mg/dL) 1.7 Hematology CBC w Diff NO MAN DIFF REQ WBC (4.8 - 10.8 /CUMM) 12.7 H RBC (4.20 - 5.40 /CUMM) 3.73 L Hgb (12.0 - 16.0 G/DL) 10.5 L Hct (37 - 47 %) 32.0 L MCV (81.0 - 99.0 FL) 86.0 MCH (27.0 - 31.0 PG) 28.2 MCHC (33.0 - 37.0 G/DL) 32.8 L RDW (11.5 - 14.5 %) 15.4 H Plt Count (130 - 400 /CUMM) 512 H MPV (7.4 - 10.4 FL) 7.7 Gran % (42.2 - 75.2 %) 84.4 H Lymphocytes % (20.5 - 51.1 %) 8.1 L Monocytes % (1.7 - 9.3 %) 5.1 Eosinophils % (0 - 5 %) 1.8 Basophils % (0.0 - 2.0 %) 0.6 Absolute Granulocytes (1.4 - 6.5 /CUMM) 10.7 H Absolute Lymphocytes (1.2 - 3.4 /CUMM) 1.0 L Absolute Monocytes (0.10 - 0.60 /CUMM) 0.7 H Absolute Eosinophils (0.0 - 0.7 /CUMM) 0.2 Absolute Basophils (0.0 - 0.2 /CUMM) 0.1 Imaging/Other Studies: 05/13/17: US ABDOMEN LIMITED- 1. Limited examination secondary to overlying bowel gas and patient body habitus. The pancreas was not clearly visualized and the liver had poor penetration, limiting evaluation. 2. Cholelithiasis. No other sonographic evidence to suggest acute cholecystitis. Clinical correlation recommended. 05/21/17: CT ABD & PELVIS W IV CONTRAST- 1. Acute pancreatitis complicated by peripancreatic effusions. 2. Effusions located in the anterior pararenal spaces, lesser sac, the mesocolon and also the mesenteric root. 3. Normal liver. No dilated ducts. (The patient is known to have gallstones by the recent ultrasound exam). 4. Post AP. 5. 2.3 cm functional left ovarian cyst. 6. DJD L5-S1. 05/22/17: US ABDOMEN LIMITED- 1. Limited assessment due to patient's body habitus and bowel gas. Visualized organs are suboptimally seen. Pancreas is not visualized at all. 2. Cholelithiasis again demonstrated with no evidence of acute cholecystitis or biliary obstruction 3. Hepatic steatosis. No definite hepatic mass seen though evaluation of liver is limited. 05/22/17: MR ABDOMEN WITHOUT CONTRAST/MRCP- 1. Above findings are consistent with acute interstitial pancreatitis involving the pancreatic head and proximal body with prominent peripancreatic edema, which extends into the anterior pararenal space, lateral paracolic gutters and around the liver and spleen. No walled off fluid collection is seen. Without the benefit of intravenous contrast, pancreatic necrosis cannot be excluded. Continued close clinical follow up is recommended with additional assessment as clinically appropriate. 2. Cholelithiasis is seen. No evidence of acute cholecystitis. 3. Pancreatic edema causes significant extrinsic impression upon the common bile duct in the pancreatic head, causing mild distention of the proximal common bile duct to 0.8 cm. No evidence of choledocholithiasis or other mass seen. 4. Upper pole left renal cyst. 06/09/17: CT ABD & PELVIS ANGIOGRAM; CTA CHEST-PULMONARY EMBOLISM- 1. No pulmonary embolism. No acute findings within the chest. 2. 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 *A new region of necrosis is present within the pancreatic head and neck (acute necrotic collection) occupying an area measuring approximately 4.8 cm transverse, 3.8 cm AP. 3. The abdominal aorta is normal. 4. Status post cholecystectomy; no evidence of biloma. 06/10/17: MR ABDOMEN WITHOUT AND WITH CONTRAST- 1. Acute pancreatitis and *acute necrotic collection, as noted above (and on the CT exam of 06/09/2017). There is peripancreatic edema and fluid without an organized, rim- enhancing collection. Small volume of ascites is present in the abdomen. There are trace bilateral pleural effusions. 2. No evidence of choledocholithiasis in this patient who is recently status * post cholecystectomy. 06/15/17: CT ABD & PELVIS W IV CONTRAST- Similar appearance of the pancreas to the previous study, with area of walled off necrosis involving the pancreatic head and neck. Decreasing but persistent adjacent inflammatory changes. Mild prominence of the pancreatic duct is also unchanged. No new fluid collection. Trace bilateral pleural effusions with atelectasis, increased from prior. 06/15/17: XRY-PORTABLE CHEST XRAY- Unremarkable examination. 06/19/17: US-COMPLETE ABDOMEN- The liver is diffusely echogenic and sound attenuating consistent with diffuse hepatic steatosis. There is hepatomegaly as well. No biliary ductal dilatation however. Status post cholecystectomy. Ill-defined hypoechogenicity in the region of the pancreatic head is consistent with the previously seen pancreatic fluid collection. If the patient has had pancreatitis for 4+ weeks, this would be a pseudocyst. 06/21/17: MR ABDOMEN WITHOUT CONTRAST (MRCP)- 1. *Three discrete peripancreatic lesions which have increased in size and conspicuity compared to CT scan 06/15/2017 (see tirado images). These may represent pseudocysts. A couple of these lesions demonstrate internal debris. Attention on followup recommended. 2. There is mild intrahepatic and extrahepatic biliary ductal prominence extending to the level of the largest peripancreatic cystic structure. This cystic structure may be causing a degree of obstruction, however the mild biliary ductal prominence is nonspecific status post cholecystectomy. No convincing choledocholithiasis. 3. Mild pancreatic ductal prominence, not significantly changed compared to exam 06/15/2017. 07/18/17: XRY-PORTABLE CHEST XRAY- Limited study, no acute infiltrates. 07/18/17: CT ABD & PELVIS W IV CONTRAST- *No suspected new areas of pancreatic necrosis. Lobulated pancreatic cystic collection has decreased slightly in size, compared with the MRI 06/21/2017. However the immediately generalized surrounding inflammatory change may have increased slightly, but without any new discrete fluid collection. Additional findings including left renal cyst and degenerative disc disease, unchanged. 07/19/17: US-LIMITED ABDOMEN- Poorly-imaged cystic mass within the head/body of the pancreas measuring at least 4.2 x 4.7 x 7.6 cm. This corresponds to the mass seen on CT scan and MRI. No PD dilitation. Normal liver. Post CCKY. No dilated IHD. CBD 5 mm. Normal right kidney. No ascites.
[2017-07-24 15:01] VITALS: BP 112/68
[2017-07-24 22:45] VITALS: BP 128/88
[2017-07-25 06:19] VITALS: BP 126/84
[2017-07-25 08:04] LABS: ABSOLUTE BASOPHIL COUNT 0.2 /CUMM (0.0-0.2); ABSOLUTE EOSINOPHIL COUNT 0.3 /CUMM (0.0-0.7); ABSOLUTE GRANULOCYTE CT 11.6 /CUMM (1.4-6.5); ABSOLUTE LYMPH COUNT 1.6 /CUMM (1.2-3.4); ABSOLUTE MONOCYTE COUNT 0.8 /CUMM (0.10-0.60); BASOPHIL % 1.2 % (0.0-2.0); EOSINOPHIL % 2.2 % (0-5); GRANULOCYTE % 80.5 % (42.2-75.2); MEAN CORPUSCULAR HGB CONC 32.7 G/DL (33.0-37.0); MEAN CORPUSCULAR VOLUME 85.8 FL (81.0-99.0); MEAN PLATELET VOLUME 7.4 FL (7.4-10.4); PLATELET COUNT 584 /CUMM (130-400); RBC DISTRIBUTION WIDTH 15.1 % (11.5-14.5); RED BLOOD CELL CT 3.38 /CUMM (4.20-5.40); WHITE BLOOD CELL COUNT 14.4 /CUMM (4.8-10.8)
--- NOTE | 2017-07-25 09:06 | PN- Housestaff ---
Roxanne BRUNNER,Refugio 07/25/17 0906: Subjective Follow-up For: Acute on chronic pancreatitis Pseudocyst pancreas Subjective: afebrile, tachycardic overnight still complaining of some epigastric pain (soreness) currently drinking melonie gianni and on clear liquid diet no reported nausea or vomiting Review of Systems Constitutional: Reports: see HPI. Objective Last 24 Hrs of Vital Signs/I&O Vital Signs Date Time Temp Pulse Resp B/P B/P Pulse O2 O2 Flow FiO2 Mean Ox Delivery Rate 07/25 09 98 128/80 07/25 0942 98 128/80 07/25 0619 98.3 96 20 126/84 94 07/24 2245 98.2 110 20 128/88 94 Room Air 07/24 1501 99.6 107 20 112/68 93 Room Air Intake & Output 07/25 1600 07/25 0800 07/25 0000 Intake Total 880 365 Output Total Balance 880 365 Intake, IV 760 245 Intake, Oral 120 120 Number 0 0 Bowel Movements Physical Exam General Appearance: Alert, Oriented X3, Cooperative, No Acute Distress Cardiovascular: Regular Rate, Normal S1, Normal S2, No Murmurs Lungs: Clear to Auscultation, Normal Air Movement Abdomen: Normal Bowel Sounds, Soft, No Masses, epigastric and RUQ tenderness on palpation Extremities: No Clubbing, No Cyanosis, Normal Pulses, b/l edema L>R Current Medications: Current Medications Sig/Anay Start time Last Medication Dose Route Stop Time Status Admin Amlodipine Besylate 10 MG DAILY 07/23 1000 AC 07/25 PO 0942 Bisacodyl 5 MG DAILY 07/25 1054 AC PO Clonazepam 1 MG 0 07/24 2200 AC 07/25 PO 07/31 2159 0030 Duloxetine HCl 120 MG DAILY 07/21 1311 AC 07/25 PO 0941 Heparin Sodium 5,000 UNIT Q8 07/19 1400 AC 07/25 (Porcine) SC 0526 Hydromorphone HCl 0.6 MG Q4P PRN 07/24 1130 DC 07/24 IV 2045 Metoprolol Succinate 100 MG DAILY 07/19 1000 AC 07/25 PO 0942 Morphine Sulfate 5 MG Q3P PRN 07/24 2100 AC 07/25 IV 1046 Promethazine HCl 25 MG Q6-PRN PRN 07/24 2100 AC 07/25 IV 07/31 2058 0526 Promethazine HCl 25 MG ONCE PRN 07/24 0400 DC 07/24 IV 07/31 0359 0503 Senna/Docusate Sodium 2 TAB DAILY PRN 07/25 1100 AC PO Sodium Chloride 1,000 ML Q10H 07/24 1945 AC 07/25 IV 0941 Sodium Chloride 1,000 ML Q13H 07/23 1745 DC 07/24 IV 0505 Trazodone HCl 25 MG QPM 07/23 2200 AC 07/25 PO 0030 Trimethobenzamide HCl 200 MG TID 07/24 0038 DC 07/24 IM 1621 Last 24 Hrs of Lab/Dangelo Results Last 24 Hrs of Labs/Mics: Laboratory Tests 07/25/17 0711: Anion Gap 11, Estimated GFR > 60, BUN/Creatinine Ratio 27.5 H, Prealbumin 3.8 L, CBC w Diff NO MAN DIFF REQ, RBC 3.38 L, MCV 85.8, MCH 28.0, MCHC 32.7 L, RDW 15.1 H, MPV 7.4, Gran % 80.5 H, Lymphocytes % 10.8 L, Monocytes % 5.3, Eosinophils % 2.2, Basophils % 1.2, Absolute Granulocytes 11.6 H, Absolute Lymphocytes 1.6, Absolute Monocytes 0.8 H, Absolute Eosinophils 0.3, Absolute Basophils 0.2 Assessment/Plan Assessment: 47 year female who was admitted on the early May last year for acute gallstone pancreatitis. Since discharge patient had multiple recurrent abdominal pain, nausea, and vomiting. She was found to have pseudocyst. It's not clear why she has the recurrent pancreatitis given there is no symptom or sign suggestive of secondary infection. The patient was transferred to [facility] , as pancreatic aspiration via EUS for possibility of pancreatic necrosis, as IR at [facility] was unable to perform this but no drainage procedure was done at [facility]. Acute on chronic pancreatitis with pseudocyst: Abdominal CT-No suspected new areas of pancreatic necrosis. Lobulated pancreatic cystic collection has decreased slightly in size compared with the MRI 2017. Afebrile, leukocytosis improving No retained CBD on imaging s/p cholecystectomy Remains on IVFs, NS @ 100cc/hr * IV antiemetics as needed * Continue analgesia with IV morphine * clear liquid again * GI is planning outpatient cyst-gastrostomy on 08/05/17. * If the patient is not tolerating by mouth, she may get transfer from hospital to hospital to do the procedure. * GI recommendations highly appreciated #History of HTN, HLD, depression, and anxiety * continue metoprolol * Continue amlodipine * Lipitor * Continue clonazepam * Continue trazodone * Continue duloxetine -DVT PPX: Mechanical and heparin subcutaneous -Clear liquid diet -Full code Problem List: 1. Pseudocyst of pancreas 2. Pancreatitis 3. Acute pancreatitis 4. Nausea & vomiting 5. Abdominal pain 6. Morbid obesity 7. Malnutrition Pain Ratin Pain Location: abdominal Pain Goal: Pain 4 or less Pain Plan: prn Tomorrow's Labs & Rationales: cbc, bep, mag, calcium Apergis Christo BRUNNER 07/25/17 1203: Attending MD Review Statement Attending Statement Attending MD Statement: examined this patient, discuss w/resident/PA/GANG MINER, agreed w/resident/PA/GANG MINER, reviewed EMR data (avail) Attending Assessment/Plan: 47F PMH HTN, HLD, anxiety, depression, history of choledocholithiasis and gallstone pancreatitis s/p laparoscopic cholecystectomy with recurrent pancreatitis, admitted with acute pancreatitis, found to have likely pseudocyst present which has decreased in size from a month ago. Initially febrile 100.6 on admission, possibly secondary to URI symptoms vs pancreatitis, afebrile since. Unchanged, still with abdominal discomfort. 1. Recurrent acute gallstone pancreatitis 2. Pancreatic pseudocyst Plan - Continue on general medicine - Clear liquid diet as tolerated - Will discuss potential transfer with GI tomorrow - Dilaudid PRN - Monitor electrolytes and LFTs - Follow GI recommendations - DVT PPx
[2017-07-25 14:50] VITALS: BP 128/70
--- NOTE | 2017-07-25 17:39 | PN- Gastroenterology ---
Assessment/Plan Assessment/Recommendations: (*The patient was seen in inpatient GI coverage for Dr. Canela. *Extensive records reviewed, cuurently HD #7, as of 07/24/17. *Please refer to multiple recent inpt GI consults by myself, Dr. Cordoba, & Dr. Canela, from 05/22/17, 06/09/17, 06/15/17, & most recently, 07/19/17). 47 y/o female, morbid obesity, HTN, HLD, anxiety, depression, panic attacks, post AP 1993, hx LLE DVT postop 1993 (on Coumadin x 1 & 1/2 yrs then), with multiple admissions in the recent past for recurrent pancreatitis, excact etiology unclear. She was hospitalized at [facility] 05/21/17-05/28/17 for gallstone pancreatitis in the setting of elevated LFTs, at which point, her lipase was 9421. She had extensive imaging studies then (*see below). There was no evidence of choledocholithiasis. She ultimately underwent 05/26/17: Lap CCKY & her sx subsided then. She had outpt pre-bariatric 05/19/17: EGD by Dr. Canela prior to her last admission, revealing multiple fundic gland polyps in the body & fundus. Bxs of the gastric polyps revealed multiple benign fundic gland hyperplastic polyps, HP-negative. Bxs of the gastric antrum & fundus revealed mild CAG, HP-neg, mild CFG, HP-neg. She was subsequently seen in covering inpt GI consultation by Dr. Cordoba 05/22/17 for the gallstone pancreatitis. She denied any new medications, regarding her pancreatitis. None of her outpt BP or psychiatric medications were reported to cause this. She denied any Sulfa meds (allergic), NSAIDS, or HCTZ. She denied any jaundice, dark urine, light stools, or pruritus. She denied any hx PUD. She denied any FHx of GI Ca, GI disease, GBD, inherited pancreatitis, or inherited liver disease, aside from her elderly PGA having late onset colon Ca in her 80's. The patient claimed a colonoscopy done at [facility] in 1989 at age 20 for rectal bleeding then was negative. She denied any cigarette smoking, significant EtOH, or illicit drug use. (*She had not yet had her bariatric surgery, which was put on hold by her recurrent pancreatitis). *She has had relatively recent normal TG. *Numerous imaging studies have failed to reveal any retained CBD stone, post CCKY. Recent EGD without PUD as a source for the pancreatitis (i.e.- no penetrating ulcer). *She had 06/10/17: normal IgG4 = 22, going against autoimmune pancreatitis. *The patient was transferred to [facility] 06/10/17, as pancreatic aspiration via EUS was advised by the ID service, given the probability of pancreatic necrosis, as IR at [facility] was unable to perform this. However, no drainage procedure was done then at [facility]. She was then readmitted to [facility] twice over the past 2 months for pancreatitis , most recently on 07/19/17, when she was seen in covering GI consultation by Dr. Cordoba, for Dr. Lechuga. *She was readmitted to [facility] 07/18/17, with worsening abdominal pain which radiated to the RUQ, with associated low-grade temp 101. Admission CT did not show any new areas of necrosis or significant fluid collections, but did show worsening pancreatitis. She was treated conservatively with IV fluids, initial NPO, & narcotic analgesics. She was observed off antibiotics. 05/13/17: US ABDOMEN LIMITED- 1. Limited examination secondary to overlying bowel gas and patient body habitus. The pancreas was not clearly visualized and the liver had poor penetration, limiting evaluation. 2. Cholelithiasis. No other sonographic evidence to suggest acute cholecystitis. Clinical correlation recommended. 05/21/17: CT ABD & PELVIS W IV CONTRAST- 1. Acute pancreatitis complicated by peripancreatic effusions. 2. Effusions located in the anterior pararenal spaces, lesser sac, the mesocolon and also the mesenteric root. 3. Normal liver. No dilated ducts. (The patient is known to have gallstones by the recent ultrasound exam). 4. Post AP. 5. 2.3 cm functional left ovarian cyst. 6. DJD L5-S1. 05/22/17: US ABDOMEN LIMITED- 1. Limited assessment due to patient's body habitus and bowel gas. Visualized organs are suboptimally seen. Pancreas is not visualized at all. 2. Cholelithiasis again demonstrated with no evidence of acute cholecystitis or biliary obstruction 3. Hepatic steatosis. No definite hepatic mass seen though evaluation of liver is limited. 05/22/17: MR ABDOMEN WITHOUT CONTRAST/MRCP- 1. Above findings are consistent with acute interstitial pancreatitis involving the pancreatic head and proximal body with prominent peripancreatic edema, which extends into the anterior pararenal space, lateral paracolic gutters and around the liver and spleen. No walled off fluid collection is seen. Without the benefit of intravenous contrast, pancreatic necrosis cannot be excluded. Continued close clinical follow up is recommended with additional assessment as clinically appropriate. 2. Cholelithiasis is seen. No evidence of acute cholecystitis. 3. Pancreatic edema causes significant extrinsic impression upon the common bile duct in the pancreatic head, causing mild distention of the proximal common bile duct to 0.8 cm. No evidence of choledocholithiasis or other mass seen. 4. Upper pole left renal cyst. 06/09/17: CT ABD & PELVIS ANGIOGRAM; CTA CHEST-PULMONARY EMBOLISM- 1. No pulmonary embolism. No acute findings within the chest. 2. 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 *A new region of necrosis is present within the pancreatic head and neck (acute necrotic collection) occupying an area measuring approximately 4.8 cm transverse, 3.8 cm AP. 3. The abdominal aorta is normal. 4. Status post cholecystectomy; no evidence of biloma. *She has since had numerous additional imaging studies: 06/10/17: MR ABDOMEN WITHOUT AND WITH CONTRAST- 1. Acute pancreatitis and *acute necrotic collection, as noted above (and on the CT exam of 06/09/2017). There is peripancreatic edema and fluid without an organized, rim- enhancing collection. Small volume of ascites is present in the abdomen. There are trace bilateral pleural effusions. 2. No evidence of choledocholithiasis in this patient who is recently status * post cholecystectomy. 06/15/17: CT ABD & PELVIS W IV CONTRAST- Similar appearance of the pancreas to the previous study, with area of walled off necrosis involving the pancreatic head and neck. Decreasing but persistent adjacent inflammatory changes. Mild prominence of the pancreatic duct is also unchanged. No new fluid collection. Trace bilateral pleural effusions with atelectasis, increased from prior. 06/15/17: XRY-PORTABLE CHEST XRAY- Unremarkable examination. 06/19/17: US-COMPLETE ABDOMEN- The liver is diffusely echogenic and sound attenuating consistent with diffuse hepatic steatosis. There is hepatomegaly as well. No biliary ductal dilatation however. Status post cholecystectomy. Ill-defined hypoechogenicity in the region of the pancreatic head is consistent with the previously seen pancreatic fluid collection. If the patient has had pancreatitis for 4+ weeks, this would be a pseudocyst. 06/21/17: MR ABDOMEN WITHOUT CONTRAST (MRCP)- 1. *Three discrete peripancreatic lesions which have increased in size and conspicuity compared to CT scan 06/15/2017 (see tirado images). These may represent pseudocysts. A couple of these lesions demonstrate internal debris. Attention on followup recommended. 2. There is mild intrahepatic and extrahepatic biliary ductal prominence extending to the level of the largest peripancreatic cystic structure. This cystic structure may be causing a degree of obstruction, however the mild biliary ductal prominence is nonspecific status post cholecystectomy. No convincing choledocholithiasis. 3. Mild pancreatic ductal prominence, not significantly changed compared to exam 06/15/2017. 07/18/17: XRY-PORTABLE CHEST XRAY- Limited study, no acute infiltrates. 07/18/17: CT ABD & PELVIS W IV CONTRAST- *No suspected new areas of pancreatic necrosis. Lobulated pancreatic cystic collection has decreased slightly in size, compared with the MRI 06/21/2017. However the immediately generalized surrounding inflammatory change may have increased slightly, but without any new discrete fluid collection. Additional findings including left renal cyst and degenerative disc disease, unchanged. 07/19/17: US-LIMITED ABDOMEN- Poorly-imaged cystic mass within the head/body of the pancreas measuring at least 4.2 x 4.7 x 7.6 cm. This corresponds to the mass seen on CT scan and MRI. No PD dilitation. Normal liver. Post CCKY. No dilated IHD. CBD 5 mm. Normal right kidney. No ascites. 05/22/17: *TG 83 06/10/17: *normal IgG4 = 22, going against autoimmune pancreatitis. 07/18/17: amylase/lipase 1016/5577, Ca 9.1, troponin < 0.01, serum HCG- neg, * CRP > 9.0 07/19/17: PO4 4.3 07/21/17: albumin 2.5, globulin 2.8, TBil 0.5, DBil 0.3, alk phos 129. AST 20, ALT 21 07/23/17: Mg 1.7 07/24/17: WBC 15.4 (76S/1B/13L/3M/6E/1Baso), H/H 10.5/32.4, MCV 85.9, RDW 15.4, PLT 569, BUN/Cr 11/0.5, GFR > 60, Na 133, K 4.3, HCO3 29, AG 10 *As of 07/24/17, the patient was mildly tachycardic and normotensive. She was afebrile, with T 98.7 (w/o abx) & O2 sat RA 96%. Numerous cultures remain negative, including influenza A/B, BC, & UC. She remained with leukocytosis. She was not hemoconcentrated by Hgb. She had been on IV Morphine, last given 10:02 a.m. on 07/24/17, which was switched to IV Dilaudid. Zofran was D/C on 07/24/17. Her other medications include Tigan, Phenergan, Trazodone, Amlodipine, Cymbalta, Toprol, Clonazepam, & sc Heparin. She was currently on IV NS @ 75 cc/hr (as opposed to Lactated Ringers, with mild hypoNa+). She had burning epigastric/LUQ pain after a full liquid diet, & was cut back to clears po. She still had some nausea. She denied any vomiting. She denies any chills, jaundice, CP, or SOB. She had no symptoms of UTI or URI. She had been ambulating in her room. *Recurrent pancreatitis, acute on chronic, exact etiology unknown. Normal TG, normal LFTs (aside from poor synthetic function), normal IgG 4, post-CCKY. Numerous imaging studies were without choledocholithiasis. Pancreatic pseudocyst with suggestion of walled off pancreatic necrosis, although never needled. The patient was not on antibiotics. She had leukocytosis, but no temperature spikes, with multiple cultures negative. 07/25/17: WBC 14.4 (81% gran/12 gran Ab), H/H 9.5/29, PLT 584, BUN/Cr 11/0.4, GFR > 60, Na 135, K 4.0, HCO3 30, AG 11, *low prealbumin 3.8 (17.6-36) *As of 07/25/17, the patient was borderline tachycardic (on Toprol XL 100 mg daily), normotensive, & afebrile, with O2 sat RA 96%. She last got IV MS at 5:06 p.m. today, shortly before my exam. She remained on IV NS @ 100 cc/hr. Her leukocytosis was slightly better. She was not hemocncentrated. Her po intake was slightly improved, although she was malnourished by *low albumin/PAB. She had mild nausea,but no vomiting, diarrhea, CP, SOB, jaundice, fevers, or chills. She tolerated clears, & was hungry. *SUGGEST: *Carefully advance to full liquids po as tolerated. IVF (currently NS @ 75 cc/hr , as opposed to Lactated Ringers, with mild hypoNa+). If poor po intake, would increase rate of IVF, watching for hemoconcentration (i.e.- rising Hgb or BUN), which would be a poor prognostic sign. Follow-up CBC & lytes. Strict I/O's. O2 as needed. Analgesics as needed. Antiemetics as needed. Avoid NSAIDS. Continue to observe as inpatient. Dr. Canela had spoken to Dr. Adal Thomas, of [facility]. The patient had been scheduled for outpatient cyst-gastrostomy on 08/05/17. If, however, her pain was not adequately controlled, or she was not able to adequately maintain her nutritional status with po intake, she may require [id number]-[id number] transfer. Other considerations could be J-tube feeds vs. TPN, depending on her caloric intake. As no clear etiology for pancreatitis had definitely been found, consideration for genetic testing (i.e.- SPINK mutation, PRSS-1, CFTR, etc.), although the patient is probably a little old for this. Further GI recommendations to follow, depending on clinical course. The patient is to follow-up with her usual GI MD, Dr. Canela, after D/C vs. transfer. Dr. Canela will resume the patient's GI care tomorrow, on 07/26/17. Problem List: 1. Pancreatitis 2. Pseudocyst of pancreas 3. Nausea & vomiting 4. Abdominal pain 5. Malnutrition 6. Morbid obesity 7. Status post laparoscopic cholecystectomy Subjective Subjective: 07/25/17: WBC 14.4 (81% gran/12 gran Ab), H/H 9.5/29, PLT 584, BUN/Cr 11/0.4, GFR > 60, Na 135, K 4.0, HCO3 30, AG 11, *low prealbumin 3.8 (17.6-36) *As of 07/25/17, the patient was borderline tachycardic (on Toprol XL 100 mg daily), normotensive, & afebrile, with O2 sat RA 96%. She last got IV MS at 5:06 p.m. today, shortly before my exam. She remained on IV NS @ 100 cc/hr. Her leukocytosis was slightly better. She was not hemocncentrated. Her po intake was slightly improved, although she was malnourished by *low albumin/PAB. She had mild nausea,but no vomiting, diarrhea, CP, SOB, jaundice, fevers, or chills. She tolerated clears, & was hungry. Review of Systems: Full 14 point ROS otherwise non-contributory & as per HPI. Constitutional: Reports: no symptoms EENTM: Reports: no symptoms. Cardiovascular: Reports: no symptoms. Respiratory: Reports: see HPI. GI: Reports: abdominal pain, nausea Genitourinary: Reports: no symptoms. Musculoskeletal: Reports: no symptoms. Skin: Reports: no symptoms. Neurological/Psychological: Reports: no symptoms (stable anxiety, depression, & panic attacks). Hematologic/Endocrine: Reports: no symptoms. All Other Systems: Reviewed and Negative Objective Vital Signs and I&Os Vital Signs Date Time Temp Pulse Resp B/P B/P Pulse O2 O2 Flow FiO2 Mean Ox Delivery Rate 07/25 1450 98.9 107 20 128/70 96 Room Air 07/25 0942 98 128/80 07/25 0942 98 128/80 07/25 0619 98.3 96 20 126/84 94 07/24 2245 98.2 110 20 128/88 94 Room Air Intake & Output 07/25 1600 07/25 0400 07/24 1600 07/24 0400 07/23 1600 07/23 0400 Intake Total 2480 365 2320 870 1280 600 Output Total 350 Balance 2480 365 2320 520 1280 600 Intake, IV 4112 991 0125 150 Intake, Oral 920 120 709 476 0860 600 Number 0 0 0 0 Bowel Movements Output, Urine 350 Physical Exam: Well-developed, well-nourished, pleasant, obese female, nontoxic appearing, in no apparent distress. Sclera anicteric. Conjunctiva pink. Oropharynx clear. No oral thrush. No aphthous ulcers. There is no adenopathy, thyromegaly, or JVD. No peripheral stigmata of inflammatory bowel disease or chronic liver disease on exam. No spiders on the anterior chest wall. Breast & pelvic exams: API. No CVA tenderness. No point spine tenderness. Lungs: clear to A&P, except for slight decreased BS at the bases B/L. No wheezing, rales, or rhonchi. Heart exam: slightly tachycardic, regular rate rhythm, S1 and S2, without any murmur. Abdominal exam: normal bowel sounds, soft belly, epigastric > LUQ tenderness, without guarding or rebound. No mass. No definite organomegaly. No fluid shift. No pulsatile mass. No epigastric bruit. Port sites healed. Digital rectal exam: deferred by patient. Extremities: without cyanosis or clubbing. < 1 + peripheral edema B/L LE, L > R (chronic). No palpable cords. No rash. Mild DJD. No acute arthropathy. No palmar erythema. No Dupuytren's contractures. Distal pulses 2+ bilaterally. DTRs 2+ bilaterally. Alert and oriented x 3. Motor 5/5 B/L. No tremor. No asterixis. A detailed exam for peripheral neuropathy was deferred. Current Medications: Current Medications Sig/Anay Start time Last Medication Dose Route Stop Time Status Admin Amlodipine Besylate 10 MG DAILY 07/23 1000 AC 07/25 PO 0942 Bisacodyl 5 MG DAILY 07/25 1054 AC 07/25 PO 1250 Clonazepam 1 MG 07/24 2200 AC 07/25 PO 07/319 0030 Duloxetine HCl 120 MG DAILY 07/21 1311 AC 07/25 PO 0941 Heparin Sodium 5,000 UNIT Q8 07/19 1400 AC 07/25 (Porcine) SC 1358 Hydromorphone HCl 0.6 MG Q4P PRN 07/24 1130 DC 07/24 IV 2045 Metoprolol Succinate 100 MG DAILY 07/19 1000 AC 07/25 PO 0942 Morphine Sulfate 5 MG Q3P PRN 07/24 2100 AC 07/25 IV 1701 Promethazine HCl 25 MG Q6-PRN PRN 07/24 2100 AC 07/25 IV 07/31 205 1251 Promethazine HCl 25 MG ONCE PRN 07/24 0400 DC 07/24 IV 07/31 0359 0503 Senna/Docusate Sodium 2 TAB DAILY PRN 07/25 1100 AC PO Sodium Chloride 1,000 ML Q10H 07/24 1945 AC 07/25 IV 0941 Sodium Chloride 1,000 ML Q13H 07/23 1745 DC 07/24 IV 0505 Trazodone HCl 25 MG QPM 07/23 2200 AC 07/25 PO 0030 Trimethobenzamide HCl 200 MG TID 07/24 0038 DC 07/24 IM 1621 Results Pertinent Lab Results: Laboratory Tests 07/25 07/24 0711 0659 Chemistry Sodium (137 - 145 mmol/L) 135 L 133 L Potassium (3.5 - 5.1 mmol/L) 4.0 4.3 Chloride (98 - 107 mmol/L) 95 L 95 L Carbon Dioxide (22 - 30 mmol/L) 30 29 Anion Gap (5 - 16) 11 10 BUN (7 - 17 mg/dL) 11 11 Creatinine (0.5 - 1.0 mg/dL) 0.4 L 0.5 Estimated GFR (>60 ml/min) > 60 > 60 BUN/Creatinine Ratio (7 - 25 %) 27.5 H 22.0 Prealbumin (17.6 - 36.0 mg/dL) 3.8 L Hematology CBC w Diff NO MAN DIFF REQ MAN DIFF ORDERED WBC (4.8 - 10.8 /CUMM) 14.4 H 15.4 H RBC (4.20 - 5.40 /CUMM) 3.38 L 3.78 L Hgb (12.0 - 16.0 G/DL) 9.5 L 10.5 L Hct (37 - 47 %) 29.0 L 32.4 L MCV (81.0 - 99.0 FL) 85.8 85.9 MCH (27.0 - 31.0 PG) 28.0 27.9 MCHC (33.0 - 37.0 G/DL) 32.7 L 32.5 L RDW (11.5 - 14.5 %) 15.1 H 15.4 H Plt Count (130 - 400 /CUMM) 584 H 569 H MPV (7.4 - 10.4 FL) 7.4 7.5 Gran % (42.2 - 75.2 %) 80.5 H Lymphocytes % (20.5 - 51.1 %) 10.8 L Monocytes % (1.7 - 9.3 %) 5.3 Eosinophils % (0 - 5 %) 2.2 Basophils % (0.0 - 2.0 %) 1.2 Absolute Granulocytes (1.4 - 6.5 /CUMM) 11.6 H Segmented Neutrophils (42.2 - 75.2 %) 76 H Band Neutrophils (0.0 - 5.0 %) 1 Absolute Lymphocytes (1.2 - 3.4 /CUMM) 1.6 Lymphocytes (20.5 - 51.1 %) 13 L Monocytes (1.7 - 9.3 %) 3 Absolute Monocytes (0.10 - 0.60 /CUMM) 0.8 H Eosinophils (0 - 5.0 %) 6 H Absolute Eosinophils (0.0 - 0.7 /CUMM) 0.3 Basophils (0.0 - 2.0 %) 1 Absolute Basophils (0.0 - 0.2 /CUMM) 0.2 Platelet Estimate (ADEQUATE) INCREASED Hypochromic-Microcytic 1+ Anisocytosis 1+ 07/23 07/23 2150 1556 Chemistry Sodium (137 - 145 mmol/L) 134 L Potassium (3.5 - 5.1 mmol/L) 5.2 H Chloride (98 - 107 mmol/L) 93 L Carbon Dioxide (22 - 30 mmol/L) 32 H Anion Gap (5 - 16) 10 BUN (7 - 17 mg/dL) 9 Creatinine (0.5 - 1.0 mg/dL) 0.5 Estimated GFR (>60 ml/min) > 60 BUN/Creatinine Ratio (7 - 25 %) 18.0 Magnesium (1.6 - 2.3 mg/dL) 1.7 Hematology CBC w Diff NO MAN DIFF REQ WBC (4.8 - 10.8 /CUMM) 17.8 H RBC (4.20 - 5.40 /CUMM) 4.09 L Hgb (12.0 - 16.0 G/DL) 11.1 L Hct (37 - 47 %) 35.2 L MCV (81.0 - 99.0 FL) 85.9 MCH (27.0 - 31.0 PG) 27.1 MCHC (33.0 - 37.0 G/DL) 31.6 L RDW (11.5 - 14.5 %) 15.4 H Plt Count (130 - 400 /CUMM) 644 H MPV (7.4 - 10.4 FL) 7.3 L Gran % (42.2 - 75.2 %) 89.2 H Lymphocytes % (20.5 - 51.1 %) 5.7 L Monocytes % (1.7 - 9.3 %) 2.7 Eosinophils % (0 - 5 %) 2.4 Basophils % (0.0 - 2.0 %) 0 Absolute Granulocytes (1.4 - 6.5 /CUMM) 15.9 H Absolute Lymphocytes (1.2 - 3.4 /CUMM) 1.0 L Absolute Monocytes (0.10 - 0.60 /CUMM) 0.5 Absolute Eosinophils (0.0 - 0.7 /CUMM) 0.4 Absolute Basophils (0.0 - 0.2 /CUMM) 0 Urines Urinalysis HEAVY H Urine Color (YEL,AMB,STR) RADHA Urine Clarity (CLEAR) CLDY H Urine pH (5.0 - 8.0) 6.0 Ur Specific [place] (1.001 - 1.035) >= 1.030 Urine Protein (NEG,<30 MG/DL) 30 H Urine Ketones (NEG) 40 H Urine Nitrite (NEG) POS H Urine Bilirubin (NEG) NEG@ICTO Urine Urobilinogen (0.1 - 1.0 EU/dl) 1.0 Ur Leukocyte Esterase (NEG) TRACE H Ur Microscopic SEDIMENT EXAMINED Urine RBC (0 - 5 /HPF) RARE Urine WBC (0 - 2 /HPF) 1-3 H Ur Epithelial Cells (NONE,FEW) MOD H Urine Crystals 3+ CA OX H Urine Bacteria (NEG/NONE) MOD H Urine Mucus (FEW,NONE) RARE Urine Hemoglobin (NEG) NEG Urine Glucose (N MG/DL) NEG 07/23 1455 Urines Urinalysis LIGHT H Urine Color (YEL,AMB,STR) RADHA Urine Clarity (CLEAR) CLDY H Urine pH (5.0 - 8.0) 6.0 Ur Specific [place] (1.001 - 1.035) >= 1.030 Urine Protein (NEG,<30 MG/DL) 30 H Urine Ketones (NEG) 15 H Urine Nitrite (NEG) NEG Urine Bilirubin (NEG) NEG@ICTO Urine Urobilinogen (0.1 - 1.0 EU/dl) 1.0 Ur Leukocyte Esterase (NEG) SMALL H Ur Microscopic SEDIMENT EXAMINED Urine RBC (0 - 5 /HPF) RARE Urine WBC (0 - 2 /HPF) 10-15 H Ur Epithelial Cells (NONE,FEW) MANY H Urine Crystals 4+ CA OX H Urine Bacteria (NEG/NONE) MOD H Urine Hemoglobin (NEG) NEG Urine Glucose (N MG/DL) NEG Imaging/Other Studies: 05/13/17: US ABDOMEN LIMITED- 1. Limited examination secondary to overlying bowel gas and patient body habitus. The pancreas was not clearly visualized and the liver had poor penetration, limiting evaluation. 2. Cholelithiasis. No other sonographic evidence to suggest acute cholecystitis. Clinical correlation recommended. 05/21/17: CT ABD & PELVIS W IV CONTRAST- 1. Acute pancreatitis complicated by peripancreatic effusions. 2. Effusions located in the anterior pararenal spaces, lesser sac, the mesocolon and also the mesenteric root. 3. Normal liver. No dilated ducts. (The patient is known to have gallstones by the recent ultrasound exam). 4. Post AP. 5. 2.3 cm functional left ovarian cyst. 6. DJD L5-S1. 05/22/17: US ABDOMEN LIMITED- 1. Limited assessment due to patient's body habitus and bowel gas. Visualized organs are suboptimally seen. Pancreas is not visualized at all. 2. Cholelithiasis again demonstrated with no evidence of acute cholecystitis or biliary obstruction 3. Hepatic steatosis. No definite hepatic mass seen though evaluation of liver is limited. 05/22/17: MR ABDOMEN WITHOUT CONTRAST/MRCP- 1. Above findings are consistent with acute interstitial pancreatitis involving the pancreatic head and proximal body with prominent peripancreatic edema, which extends into the anterior pararenal space, lateral paracolic gutters and around the liver and spleen. No walled off fluid collection is seen. Without the benefit of intravenous contrast, pancreatic necrosis cannot be excluded. Continued close clinical follow up is recommended with additional assessment as clinically appropriate. 2. Cholelithiasis is seen. No evidence of acute cholecystitis. 3. Pancreatic edema causes significant extrinsic impression upon the common bile duct in the pancreatic head, causing mild distention of the proximal common bile duct to 0.8 cm. No evidence of choledocholithiasis or other mass seen. 4. Upper pole left renal cyst. 06/09/17: CT ABD & PELVIS ANGIOGRAM; CTA CHEST-PULMONARY EMBOLISM- 1. No pulmonary embolism. No acute findings within the chest. 2. 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 *A new region of necrosis is present within the pancreatic head and neck (acute necrotic collection) occupying an area measuring approximately 4.8 cm transverse, 3.8 cm AP. 3. The abdominal aorta is normal. 4. Status post cholecystectomy; no evidence of biloma. 06/10/17: MR ABDOMEN WITHOUT AND WITH CONTRAST- 1. Acute pancreatitis and *acute necrotic collection, as noted above (and on the CT exam of 06/09/2017). There is peripancreatic edema and fluid without an organized, rim- enhancing collection. Small volume of ascites is present in the abdomen. There are trace bilateral pleural effusions. 2. No evidence of choledocholithiasis in this patient who is recently status * post cholecystectomy. 06/15/17: CT ABD & PELVIS W IV CONTRAST- Similar appearance of the pancreas to the previous study, with area of walled off necrosis involving the pancreatic head and neck. Decreasing but persistent adjacent inflammatory changes. Mild prominence of the pancreatic duct is also unchanged. No new fluid collection. Trace bilateral pleural effusions with atelectasis, increased from prior. 06/15/17: XRY-PORTABLE CHEST XRAY- Unremarkable examination. 06/19/17: US-COMPLETE ABDOMEN- The liver is diffusely echogenic and sound attenuating consistent with diffuse hepatic steatosis. There is hepatomegaly as well. No biliary ductal dilatation however. Status post cholecystectomy. Ill-defined hypoechogenicity in the region of the pancreatic head is consistent with the previously seen pancreatic fluid collection. If the patient has had pancreatitis for 4+ weeks, this would be a pseudocyst. 06/21/17: MR ABDOMEN WITHOUT CONTRAST (MRCP)- 1. *Three discrete peripancreatic lesions which have increased in size and conspicuity compared to CT scan 06/15/2017 (see tirado images). These may represent pseudocysts. A couple of these lesions demonstrate internal debris. Attention on followup recommended. 2. There is mild intrahepatic and extrahepatic biliary ductal prominence extending to the level of the largest peripancreatic cystic structure. This cystic structure may be causing a degree of obstruction, however the mild biliary ductal prominence is nonspecific status post cholecystectomy. No convincing choledocholithiasis. 3. Mild pancreatic ductal prominence, not significantly changed compared to exam 06/15/2017. 07/18/17: XRY-PORTABLE CHEST XRAY- Limited study, no acute infiltrates. 07/18/17: CT ABD & PELVIS W IV CONTRAST- *No suspected new areas of pancreatic necrosis. Lobulated pancreatic cystic collection has decreased slightly in size, compared with the MRI 06/21/2017. However the immediately generalized surrounding inflammatory change may have increased slightly, but without any new discrete fluid collection. Additional findings including left renal cyst and degenerative disc disease, unchanged. 07/19/17: US-LIMITED ABDOMEN- Poorly-imaged cystic mass within the head/body of the pancreas measuring at least 4.2 x 4.7 x 7.6 cm. This corresponds to the mass seen on CT scan and MRI. No PD dilitation. Normal liver. Post CCKY. No dilated IHD. CBD 5 mm. Normal right kidney. No ascites.
[2017-07-25 23:22] VITALS: BP 130/70
--- NOTE | 2017-07-26 04:04 | Event Note ---
Event Note Event Note: s: Nurse called for tachycardia up to 125. Per minute, patient was evaluated by the logistics intern, was sleeping with no symptoms B: Patient was admitted for recurrent acute pancreatitis, history of palpitation , was evaluated back in June [address] Chapman A: EKG was obtained which shows sinus tachycardia, home medication was reviewed, patient getting all of her home medication clonazepam, metoprolol XL 100 mg , no anxiety or pain. R: Contacted the attending Clarisa Lassiter MD with plan for CTA to rule out PE in a.m., patient is sleeping comfortably, no symptoms and she is not desating.
[2017-07-26 06:49] VITALS: BP 130/72
--- NOTE | 2017-07-26 07:15 | PN- Housestaff ---
[facility] 07/26/17 0714: Subjective Follow-up For: Acute on chronic pancreatitis. Pseudocyst pancreas Tachycardia Subjective: No overnight events. Patient remained afebrile overnight. Seen and examined this morning. Patient denied any chest pain, short of breath, nausea, vomiting, lightheadedness and dysuria. Patient reported having palpitations intermittently and abdominal pain 3/10 under control with pain medication. Patient is back to full liquid diet. Over the weekend patient developed severe abdominal pain and nausea with vomiting and she was kept nothing by mouth with IV fluids and then she was back to clear liquid. Patient was supposed to get a CAT scan abdomen today as recommended by Dr. Laguna as a postcholecystectomy follow-up. Review of Systems Constitutional: Reports: no symptoms. EENTM: Reports: no symptoms. Cardiovascular: Reports: palpitations. Respiratory: Reports: no symptoms. Gastrointestinal: Reports: abdominal pain. Genitourinary: Reports: no symptoms. Musculoskeletal: Reports: see HPI. Neurological/Psychological: Reports: no symptoms. Objective Last 24 Hrs of Vital Signs/I&O Vital Signs Date Time Temp Pulse Resp B/P B/P Pulse O2 O2 Flow FiO2 Mean Ox Delivery Rate 07/26 0649 98.8 110 18 130/72 95 Room Air 07/25 2322 98.8 126 20 130/70 94 Room Air 07/25 1450 98.9 107 20 128/70 96 Room Air 07/25 0942 98 128/80 07/25 0942 98 128/80 Intake & Output 07/26 1600 07/26 0800 07/26 0000 Intake Total 500 780 Output Total 360 Balance 140 780 Intake, IV 450 300 Intake, Oral 50 480 Output, Urine 360 Physical Exam General Appearance: Alert, Oriented X3, Cooperative Skin Temp/Moisture Exam: Warm/Dry Sepsis Skin Exam (color): Normal for Ethnicity HEENT: Atraumatic, PERRLA, EOMI Neck: Supple Cardiovascular: Normal S1, Normal S2 Lungs: Clear to Auscultation Abdomen: Soft, No Tenderness Neurological: Normal Speech, Strength at 5/5 X4 Ext, Normal Tone, Sensation Intact Extremities: No Edema Assessment/Plan Assessment: 47 YO F morbid obesity with PMH of HTN, HLD, anxiety, depression, panic attacks, post AP 1993, hx LLE DVT postop 1993 was on coumadin for a year, Hx of Choledocholithiasis and gallstone pancreatitis s/p laparoscopic cholecystectomy, necrotic pancreatitis (patient was transferred to [place]), recent admission in [facility] in June 2017 for another episode of acute pancreatitis, who presented today at the emergency room complaining of sudden onset epigastric and right upper quadrant abdominal pain. Patient is being followed on general medicine floor for acute recurrent pancreatitis. Acute on chronic pancreatitis with pseudocyst pancrease: -IV antiemetics as needed -IV morphine to control pain. -Continue monitoring patient's vitals especially temperature and WBC count if she spikes fever again her WBC count goes up, we will repeat imaging studies and blood cultures again. -We will observe off antibiotics for now. -We will follow GI recommendations. GI is planning outpatient cyst-gastrostomy on 08/05/17. -If the patient is not tolerating by mouth, she may get transfer from hospital to hospital to do the procedure. -Patient is on full liquid diet due to pain and nausea she developed over the weekend. -IV fluids N/S @100ml/hr History of hypertension and hyperlipidemia: -continue metoprolol and Lipitor. History of depression and anxiety: -Continue clonazepam and cymbalta. -continue trazodone for sleep. DVT prophylaxis: Mechanical and Lovenox CODE STATUS: Full code Problem List: 1. Acute pancreatitis 2. Pseudocyst of pancreas Pain Ratin Pain Location: abdomen Pain Goal: Remain pain free Pain Plan: pain pathway Tomorrow's Labs & Rationales: bep/cbc Christo Nugent MD 07/26/17 1208: Attending MD Review Statement Attending Statement Attending MD Statement: examined this patient, discuss w/resident/PA/MARKETING ENGINEER, agreed w/resident/PA/MARKETING ENGINEER, reviewed EMR data (avail) Attending Assessment/Plan: 47F PMH HTN, HLD, anxiety, depression, history of choledocholithiasis and gallstone pancreatitis s/p laparoscopic cholecystectomy with recurrent pancreatitis, admitted with acute pancreatitis, found to have likely pseudocyst present which has decreased in size from a month ago. Initially febrile 100.6 on admission, possibly secondary to URI symptoms vs pancreatitis, afebrile since. Unchanged, still with abdominal discomfort. 1. Recurrent acute gallstone pancreatitis 2. Pancreatic pseudocyst Plan - Continue on general medicine - Clear liquid diet as tolerated - Will discuss potential transfer with GI - Dilaudid PRN - Monitor electrolytes and LFTs - Follow GI recommendations - DVT PPx
[2017-07-26 08:09] LABS: ABSOLUTE BASOPHIL COUNT 0 /CUMM (0.0-0.2); ABSOLUTE EOSINOPHIL COUNT 0.3 /CUMM (0.0-0.7); ABSOLUTE GRANULOCYTE CT 13.4 /CUMM (1.4-6.5); ABSOLUTE LYMPH COUNT 1.3 /CUMM (1.2-3.4); ABSOLUTE MONOCYTE COUNT 1.2 /CUMM (0.10-0.60); BASOPHIL % 0.2 % (0.0-2.0); EOSINOPHIL % 1.8 % (0-5); GRANULOCYTE % 82.6 % (42.2-75.2); HEMATOCRIT 29.2 % (37-47); MEAN CORPUSCULAR HGB 27.7 PG (27.0-31.0); MEAN CORPUSCULAR HGB CONC 32.8 G/DL (33.0-37.0); MEAN CORPUSCULAR VOLUME 84.6 FL (81.0-99.0); MEAN PLATELET VOLUME 7.2 FL (7.4-10.4); PLATELET COUNT 672 /CUMM (130-400); RBC DISTRIBUTION WIDTH 15.4 % (11.5-14.5); RED BLOOD CELL CT 3.46 /CUMM (4.20-5.40); WHITE BLOOD CELL COUNT 16.3 /CUMM (4.8-10.8)
--- NOTE | 2017-07-26 14:08 | PN- Gastroenterology ---
Assessment/Plan Assessment/Recommendations: ASSESSMENT: 1. Pancreatitis Acute on Chronic 2. Pancreatitic Pseudocyst with Walled Off Necrosis 3. Morbid Obesity RECOMMENDATIONS: 1. Believe patient will likely not be able to go home and have outpatient cyst- gastrostomy. Will speak with Dr. Adal Thomas regarding possible in-patient transfer to [facility] for procedure. 2. Pain Control 3. Diet as tolerated 4. Continue IV Fluids 5. Await results of CT Scan 6. Follow labs Subjective Subjective: Patient feels better than she had over the weekend. Still requiring MSO4 around the clock. Has epigastric/upper abdominal discomfort as well as back pain. No nausea and vomiting. Still unable to take a significant amount by mouth. Objective Vital Signs and I&Os Vital Signs Date Time Temp Pulse Resp B/P B/P Pulse O2 O2 Flow FiO2 Mean Ox Delivery Rate 07/26 0845 108 128/76 07/26 0845 108 128/76 07/26 0649 98.8 110 18 130/72 95 Room Air 07/25 2322 98.8 126 20 130/70 94 Room Air 07/25 1450 98.9 107 20 128/70 96 Room Air Intake & Output 07/26 1600 07/26 0400 07/25 1600 07/25 0400 07/24 1600 07/24 0400 Intake Total 825 678 6090 365 2320 870 Output Total 360 350 Balance 043 247 3732 365 2320 520 Intake, IV 314 857 6316 245 1480 150 Intake, Oral 50 480 920 120 840 720 Number 0 0 0 0 Bowel Movements Output, Urine 360 350 Physical Exam General Appearance: alert, awake Respiratory: normal breath sounds, lungs clear Cardiovascular: regular rate/rhythm Abdomen: tender in epigastrium without rebound or guarding. bowel sounds present. distended. Neurologic/Psychiatric: alert, oriented x 3, normal mood/affect Skin: normal color, warm/dry, no ecchymoses Current Medications: Current Medications Sig/Anay Start time Last Medication Dose Route Stop Time Status Admin Amlodipine Besylate 10 MG DAILY 07/23 1000 AC 07/26 PO 0845 Bisacodyl 5 MG DAILY 07/25 1054 AC 07/26 PO 0845 Clonazepam 1 MG 2200 07/24 2200 AC 07/25 PO 07/31 2159 2109 Duloxetine HCl 120 MG DAILY 07/21 1311 AC 02/12 PO 0845 Heparin Sodium 5,000 UNIT Q8 07/19 1400 AC 07/26 (Porcine) SC 1359 Magnesium Oxide 400 MG ONE ONE 07/26 1200 DC 07/26 PO 07/26 1201 1243 Metoprolol Succinate 100 MG DAILY 07/19 1000 AC 07/26 PO 0845 Morphine Sulfate 5 MG Q3P PRN 07/24 2100 AC 07/26 IV 1225 Promethazine HCl 25 MG Q6-PRN PRN 07/24 2100 AC 07/26 IV 07/317 Senna/Docusate Sodium 2 TAB DAILY PRN 07/25 1100 AC 07/25 PO 2108 Sodium Chloride 1,000 ML Q10H 07/24 1945 AC 07/26 IV 0708 Trazodone HCl 25 MG QPM 07/23 2199 AC 07/25 PO 2108 Results Pertinent Lab Results: Laboratory Tests 07/26 07/25 0725 0711 Chemistry Sodium (137 - 145 mmol/L) 134 L 135 L Potassium (3.5 - 5.1 mmol/L) 4.2 4.0 Chloride (98 - 107 mmol/L) 96 L 95 L Carbon Dioxide (22 - 30 mmol/L) 25 30 Anion Gap (5 - 16) 12 11 BUN (7 - 17 mg/dL) 10 11 Creatinine (0.5 - 1.0 mg/dL) 0.5 0.4 L Estimated GFR (>60 ml/min) > 60 > 60 BUN/Creatinine Ratio (7 - 25 %) 20.0 27.5 H Calcium (8.4 - 10.2 mg/dL) 8.9 Magnesium (1.6 - 2.3 mg/dL) 1.6 Total Bilirubin (0.2 - 1.3 mg/dL) 0.3 Direct Bilirubin (< 0.4 mg/dL) 0.2 AST (14 - 36 U/L) 17 ALT (9 - 52 U/L) 24 Alkaline Phosphatase (<127 U/L) 110 Total Protein (6.3 - 8.2 g/dL) 5.2 L Albumin (3.5 - 5.0 g/dL) 2.5 L Prealbumin (17.6 - 36.0 mg/dL) 3.8 L TSH (0.270 - 4.200 uIU/mL) 2.850 Free T4 (0.64 - 1.79 ng/dL) 1.75 Hematology CBC w Diff NO MAN DIFF REQ NO MAN DIFF REQ WBC (4.8 - 10.8 /CUMM) 16.3 H 14.4 H RBC (4.20 - 5.40 /CUMM) 3.46 L 3.38 L Hgb (12.0 - 16.0 G/DL) 9.6 L 9.5 L Hct (37 - 47 %) 29.2 L 29.0 L MCV (81.0 - 99.0 FL) 84.6 85.8 MCH (27.0 - 31.0 PG) 27.7 28.0 MCHC (33.0 - 37.0 G/DL) 32.8 L 32.7 L RDW (11.5 - 14.5 %) 15.4 H 15.1 H Plt Count (130 - 400 /CUMM) 672 H 584 H MPV (7.4 - 10.4 FL) 7.2 L 7.4 Gran % (42.2 - 75.2 %) 82.6 H 80.5 H Lymphocytes % (20.5 - 51.1 %) 7.7 L 10.8 L Monocytes % (1.7 - 9.3 %) 7.7 5.3 Eosinophils % (0 - 5 %) 1.8 2.2 Basophils % (0.0 - 2.0 %) 0.2 1.2 Absolute Granulocytes (1.4 - 6.5 /CUMM) 13.4 H 11.6 H Absolute Lymphocytes (1.2 - 3.4 /CUMM) 1.3 1.6 Absolute Monocytes (0.10 - 0.60 /CUMM) 1.2 H 0.8 H Absolute Eosinophils (0.0 - 0.7 /CUMM) 0.3 0.3 Absolute Basophils (0.0 - 0.2 /CUMM) 0 0.2 07/24 07/23 0659 2150 Chemistry Sodium (137 - 145 mmol/L) 133 L Potassium (3.5 - 5.1 mmol/L) 4.3 Chloride (98 - 107 mmol/L) 95 L Carbon Dioxide (22 - 30 mmol/L) 29 Anion Gap (5 - 16) 10 BUN (7 - 17 mg/dL) 11 Creatinine (0.5 - 1.0 mg/dL) 0.5 Estimated GFR (>60 ml/min) > 60 BUN/Creatinine Ratio (7 - 25 %) 22.0 Hematology CBC w Diff MAN DIFF ORDERED WBC (4.8 - 10.8 /CUMM) 15.4 H RBC (4.20 - 5.40 /CUMM) 3.78 L Hgb (12.0 - 16.0 G/DL) 10.5 L Hct (37 - 47 %) 32.4 L MCV (81.0 - 99.0 FL) 85.9 MCH (27.0 - 31.0 PG) 27.9 MCHC (33.0 - 37.0 G/DL) 32.5 L RDW (11.5 - 14.5 %) 15.4 H Plt Count (130 - 400 /CUMM) 569 H MPV (7.4 - 10.4 FL) 7.5 Segmented Neutrophils (42.2 - 75.2 %) 76 H Band Neutrophils (0.0 - 5.0 %) 1 Lymphocytes (20.5 - 51.1 %) 13 L Monocytes (1.7 - 9.3 %) 3 Eosinophils (0 - 5.0 %) 6 H Basophils (0.0 - 2.0 %) 1 Platelet Estimate (ADEQUATE) INCREASED Hypochromic-Microcytic 1+ Anisocytosis 1+ Urines Urinalysis HEAVY H Urine Color (YEL,AMB,STR) RADHA Urine Clarity (CLEAR) CLDY H Urine pH (5.0 - 8.0) 6.0 Ur Specific [place] (1.001 - 1.035) >= 1.030 Urine Protein (NEG,<30 MG/DL) 30 H Urine Ketones (NEG) 40 H Urine Nitrite (NEG) POS H Urine Bilirubin (NEG) NEG@ICTO Urine Urobilinogen (0.1 - 1.0 EU/dl) 1.0 Ur Leukocyte Esterase (NEG) TRACE H Ur Microscopic SEDIMENT EXAMINED Urine RBC (0 - 5 /HPF) RARE Urine WBC (0 - 2 /HPF) 1-3 H Ur Epithelial Cells (NONE,FEW) MOD H Urine Crystals 3+ CA OX H Urine Bacteria (NEG/NONE) MOD H Urine Mucus (FEW,NONE) RARE Urine Hemoglobin (NEG) NEG Urine Glucose (N MG/DL) NEG 07/23 07/23 1556 1455 Chemistry Sodium (137 - 145 mmol/L) 134 L Potassium (3.5 - 5.1 mmol/L) 5.2 H Chloride (98 - 107 mmol/L) 93 L Carbon Dioxide (22 - 30 mmol/L) 32 H Anion Gap (5 - 16) 10 BUN (7 - 17 mg/dL) 9 Creatinine (0.5 - 1.0 mg/dL) 0.5 Estimated GFR (>60 ml/min) > 60 BUN/Creatinine Ratio (7 - 25 %) 18.0 Magnesium (1.6 - 2.3 mg/dL) 1.7 Hematology CBC w Diff NO MAN DIFF REQ WBC (4.8 - 10.8 /CUMM) 17.8 H RBC (4.20 - 5.40 /CUMM) 4.09 L Hgb (12.0 - 16.0 G/DL) 11.1 L Hct (37 - 47 %) 35.2 L MCV (81.0 - 99.0 FL) 85.9 MCH (27.0 - 31.0 PG) 27.1 MCHC (33.0 - 37.0 G/DL) 31.6 L RDW (11.5 - 14.5 %) 15.4 H Plt Count (130 - 400 /CUMM) 644 H MPV (7.4 - 10.4 FL) 7.3 L Gran % (42.2 - 75.2 %) 89.2 H Lymphocytes % (20.5 - 51.1 %) 5.7 L Monocytes % (1.7 - 9.3 %) 2.7 Eosinophils % (0 - 5 %) 2.4 Basophils % (0.0 - 2.0 %) 0 Absolute Granulocytes (1.4 - 6.5 /CUMM) 15.9 H Absolute Lymphocytes (1.2 - 3.4 /CUMM) 1.0 L Absolute Monocytes (0.10 - 0.60 /CUMM) 0.5 Absolute Eosinophils (0.0 - 0.7 /CUMM) 0.4 Absolute Basophils (0.0 - 0.2 /CUMM) 0 Urines Urinalysis LIGHT H Urine Color (YEL,AMB,STR) RADHA Urine Clarity (CLEAR) CLDY H Urine pH (5.0 - 8.0) 6.0 Ur Specific [place] (1.001 - 1.035) >= 1.030 Urine Protein (NEG,<30 MG/DL) 30 H Urine Ketones (NEG) 15 H Urine Nitrite (NEG) NEG Urine Bilirubin (NEG) NEG@ICTO Urine Urobilinogen (0.1 - 1.0 EU/dl) 1.0 Ur Leukocyte Esterase (NEG) SMALL H Ur Microscopic SEDIMENT EXAMINED Urine RBC (0 - 5 /HPF) RARE Urine WBC (0 - 2 /HPF) 10-15 H Ur Epithelial Cells (NONE,FEW) MANY H Urine Crystals 4+ CA OX H Urine Bacteria (NEG/NONE) MOD H Urine Hemoglobin (NEG) NEG Urine Glucose (N MG/DL) NEG
--- NOTE | 2017-07-26 14:11 | CT SCAN REPORT ---
EXAMINATION: CT CHEST PE STUDY CLINICAL INFORMATION: Persistent tachycardia with history of DVT. Wells score greater than 4 and d-dimer positive. Presumptive diagnosis of pulmonary embolism. COMPARISON: Chest x-ray dated 07/18/2017. CT scan of the abdomen and pelvis dated 07/18/2017 CTA of the chest dated 06/09/2017. TECHNIQUE: Prior to contrast administration, localization images were obtained. After the administration of 95 and mL of intravenous Optiray 320, multidetector CT volume acquisition of the chest was performed. 3-D postprocessing was performed with multiplanar reconstructions and MIP images obtained at the acquisition workstation under concurrent physician supervision. Due to suboptimal bolus timing, the patient was brought back for repeat imaging after the administration of the second contrast bolus of 70 mL of intravenous Optiray 320. DLP: 845.81 mGy-cm. FINDINGS: Pulmonary arteries: The bolus timing on this study was not acceptable for visualization of the pulmonary arterial tree on the initial acquisition. The patient was therefore brought back for repeat exam. On the second trial, contrast bolus timing is satisfactory. There are no intraluminal pulmonary arterial filling defects present to suggest pulmonary embolism in the main pulmonary artery, right and left main pulmonary artery, lobar and segmental branches. Lungs: There is a small left-sided pleural effusion with associated volume loss and dependent atelectasis in the left lower lobe. Small amount of dependent atelectasis is also seen in the right lower lobe. Evaluation of the lungs is mildly limited due to motion artifact and beam hardening artifact. There are several linear bandlike areas of opacity seen scattered in the lungs, most likely related to platelike atelectatic changes. The central airways are patent. Aorta and heart: The heart is normal in size. The mediastinum, aorta and great vessels are normal. There is no pericardial effusion Lymphatic structures: There is no lymphadenopathy. Upper abdomen: The patient is status post cholecystectomy. Incompletely imaged is a large thin-walled cystic mass in region of the pancreatic head, measuring 10.0 x 8.1 cm versus 6.6 x 3.9 cm on 07/18/2017. This is most consistent with an enlarging pancreatic pseudocyst. Additional ill-defined fluid collection is seen surrounding the greater curvature of the stomach and extending into the gastrosplenic ligament, increased in size compared to the previous CT scan from 07/18/2017. Limited evaluation of the upper abdominal viscera demonstrates no focal abnormality. Bones: No significant focal findings. IMPRESSION: 1. No evidence of pulmonary embolism. 2. Small left-sided pleural effusion with associated dependent atelectasis in the left lower lobe. 3. Other scattered areas of atelectatic change also noted in the lungs. No focal consolidation. 4. Status post cholecystectomy. 5. Large incompletely imaged cystic mass in the pancreatic head, apparently larger than on 07/18/2017. There is also increased fluid in the gastrosplenic ligament. Findings are most likely related to acute/subacute pancreatitis with pseudocyst formation, but are incompletely imaged.
[2017-07-26 16:11] VITALS: BP 130/80
[2017-07-26 21:50] VITALS: BP 120/80
[2017-07-27 06:12] VITALS: BP 118/74
--- NOTE | 2017-07-27 08:06 | PN- Housestaff ---
See Addendum Subjective Follow-up For: Pancreatitis with pseudocyst Subjective: She hurt her back getting into the CT scanner yesterday, having back pain relvied by cyclobenzaprine. Abd pain is improving. No fever or chills. Review of Systems Constitutional: Reports: no symptoms. EENTM: Reports: no symptoms. Cardiovascular: Reports: no symptoms. Respiratory: Reports: no symptoms. Gastrointestinal: Reports: see HPI. Genitourinary: Reports: no symptoms. Musculoskeletal: Reports: see HPI. Skin: Reports: no symptoms. Neurological/Psychological: Reports: no symptoms. Hematologic/Endocrine: Reports: no symptoms. Immunologic/Allergic: Reports: no symptoms. Objective Last 24 Hrs of Vital Signs/I&O Vital Signs Date Time Temp Pulse Resp B/P B/P Pulse O2 O2 Flow FiO2 Mean Ox Delivery Rate 07/27 611 98.1 106 20 118/74 93 07/26 2150 98.0 109 18 120/80 98 Room Air 07/26 1611 98.4 103 18 130/80 94 Room Air 07/26 0845 108 128/76 07/26 0845 108 128/76 Intake & Output 07/27 1600 07/27 0800 07/27 0000 Intake Total 820 1280 Output Total Balance 820 1280 Intake, IV 720 800 Intake, Oral 100 480 Physical Exam General Appearance: Alert, Oriented X3, Cooperative, No Acute Distress Cardiovascular: Regular Rate, Normal S1, Normal S2 Lungs: Clear to Auscultation Abdomen: epigastric tenderness Neurological: Normal Speech Extremities: nonpitting edema without tenderness Current Medications: Current Medications Sig/Anay Start time Last Medication Dose Route Stop Time Status Admin Amlodipine Besylate 10 MG DAILY 07/23 1000 AC 07/26 PO 0845 Bisacodyl 5 MG DAILY 07/25 1054 AC 07/26 PO 0845 Clonazepam 1 MG 2200 07/24 2200 AC 07/26 PO 07/31 2159 2153 Cyclobenzaprine HCl 5 MG ONCE ONE 07/26 2030 DC 07/26 PO 07/26 2031 2044 Duloxetine HCl 120 MG DAILY 07/21 1311 AC 07/26 PO 0845 Heparin Sodium 5,000 UNIT Q8 07/19 1400 AC 07/27 (Porcine) SC 0536 Magnesium Oxide 400 MG ONE ONE 07/26 1200 DC 07/26 PO 07/26 1201 1243 Metoprolol Succinate 100 MG DAILY 07/19 1000 AC 07/26 PO 0845 Morphine Sulfate 5 MG Q3P PRN 07/24 2100 AC 07/27 IV 0720 Promethazine HCl 25 MG .STK-MED ONE 07/26 2148 DC IM 07/26 2149 Promethazine HCl 25 MG .STK-MED ONE 07/26 1009 DC IM 07/26 1010 Promethazine HCl 25 MG Q6-PRN PRN 07/24 2100 AC 07/27 IV 07/31 2058 0720 Senna/Docusate Sodium 2 TAB DAILY PRN 07/25 1100 AC 07/25 PO 210 Sodium Chloride 1,000 ML Q10H 07/24 1945 AC 07/27 IV 0400 Trazodone HCl 25 MG QPM 07/23 220 AC 07/26 PO 215 Last 24 Hrs of Lab/Dangelo Results Last 24 Hrs of Labs/Mics: Laboratory Tests 07/27/17 0720: Sodium Pending, Potassium Pending, Chloride Pending, Carbon Dioxide Pending, Anion Gap Pending, BUN Pending, Creatinine Pending, BUN/Creatinine Ratio Pending , CBC w Diff Pending, WBC Pending, RBC Pending, Hgb Pending, Hct Pending, MCV Pending, MCH Pending, MCHC Pending, RDW Pending, Plt Count Pending, MPV Pending Assessment/Plan Assessment: 47 YO F morbid obesity with PMH of HTN, HLD, anxiety, depression, panic attacks, post AP 1993, hx LLE DVT postop 1993 was on coumadin for a year, Hx of Choledocholithiasis and gallstone pancreatitis s/p laparoscopic cholecystectomy, necrotic pancreatitis (patient was transferred to [place]), recent admission in [facility] in June 2017 for another episode of acute pancreatitis, who presented today at the emergency room complaining of sudden onset epigastric and right upper quadrant abdominal pain. Problem list: 1. Acute pancreatitis with pseudocyst 2. Acute back pain 3. Thrombocytosis #Acute pancreatitis with pseudocyst: Patient presents with signs and symptoms of acute pancreatitis. CT imaging shows a cystic mass in the pancreatic head and pseudocyst formation. GI is recommending probable transfer to [place] for drainage after speaking to them. -Promethazine -IV morphine to control pain -Appreciate GI recommendations -full liquid diet -IV fluids NS @100ml/hr -Likely transfer to [place] #Acute back pain: Likely musculoskeletal. -Continue cyclobenzaprine and ice/hot pack #Thrombocytosis: Likely reactive #Chronic medical problems: -Continue home medications DVT prophylaxis with enoxaparin Full liquid diet Full code Problem List: 1. Pseudocyst of pancreas Pain Ratin Pain Location: abd Pain Goal: Remain pain free Pain Plan: see a/p Tomorrow's Labs & Rationales: NONE IF TRANSFGER
[2017-07-27 08:28] LABS: ABSOLUTE BASOPHIL COUNT 0 /CUMM (0.0-0.2); ABSOLUTE EOSINOPHIL COUNT 0.3 /CUMM (0.0-0.7); ABSOLUTE GRANULOCYTE CT 11.9 /CUMM (1.4-6.5); BASOPHIL % 0.1 % (0.0-2.0); EOSINOPHIL % 2.3 % (0-5); HEMATOCRIT 27.9 % (37-47); MEAN CORPUSCULAR HGB 27.6 PG (27.0-31.0); MEAN CORPUSCULAR HGB CONC 32.6 G/DL (33.0-37.0); MEAN CORPUSCULAR VOLUME 84.7 FL (81.0-99.0); MEAN PLATELET VOLUME 7.4 FL (7.4-10.4); PLATELET COUNT 612 /CUMM (130-400); RBC DISTRIBUTION WIDTH 15.3 % (11.5-14.5); WHITE BLOOD CELL COUNT 14.3 /CUMM (4.8-10.8)
[2017-07-27 09:21] LABS: GRANULOCYTE % 83.1 % (42.2-75.2)
[2017-07-27 13:28] VITALS: BP 150/81
--- NOTE | 2017-07-27 14:10 | PN- Gastroenterology ---
Assessment/Plan Assessment/Recommendations: ASSESSMENT: 1. Pancreatitis Acute on Chronic 2. Pancreatitic Pseudocyst with Walled Off Necrosis 3. Morbid Obesity RECOMMENDATIONS: 1. Believe patient will likely not be able to go home and have outpatient cyst- gastrostomy. Will speak with Dr. Adal Thomas regarding possible in-patient transfer to [facility] for procedure. 2. Pain Control 3. Diet as tolerated 4. Continue IV Fluids 5. Await results of urine culture. 6. Follow labs Subjective Subjective: Patient with continuing need for narcotic analgesic. Had CTA fo the chest on , the results of which are as follows: FINDINGS: Pulmonary arteries: The bolus timing on this study was not acceptable for visualization of the pulmonary arterial tree on the initial acquisition. The patient was therefore brought back for repeat exam. On the second trial, contrast bolus timing is satisfactory. There are no intraluminal pulmonary arterial filling defects present to suggest pulmonary embolism in the main pulmonary artery, right and left main pulmonary artery, lobar and segmental branches. Lungs: There is a small left-sided pleural effusion with associated volume loss and dependent atelectasis in the left lower lobe. Small amount of dependent atelectasis is also seen in the right lower lobe. Evaluation of the lungs is mildly limited due to motion artifact and beam hardening artifact. There are several linear bandlike areas of opacity seen scattered in the lungs, most likely related to platelike atelectatic changes. The central airways are patent. Aorta and heart: The heart is normal in size. The mediastinum, aorta and great vessels are normal. There is no pericardial effusion Lymphatic structures: There is no lymphadenopathy. Upper abdomen: The patient is status post cholecystectomy. Incompletely imaged is a large thin-walled cystic mass in region of the pancreatic head, measuring 10.0 x 8.1 cm versus 6.6 x 3.9 cm on 07/18/2017. This is most consistent with an enlarging pancreatic pseudocyst. Additional ill-defined fluid collection is seen surrounding the greater curvature of the stomach and extending into the gastrosplenic ligament, increased in size compared to the previous CT scan from 07/18/2017. Limited evaluation of the upper abdominal viscera demonstrates no focal abnormality. Bones: No significant focal findings. IMPRESSION: 1. No evidence of pulmonary embolism. 2. Small left-sided pleural effusion with associated dependent atelectasis in the left lower lobe. 3. Other scattered areas of atelectatic change also noted in the lungs. No focal consolidation. 4. Status post cholecystectomy. 5. Large incompletely imaged cystic mass in the pancreatic head, apparently larger than on 07/18/2017. There is also increased fluid in the gastrosplenic ligament. Findings are most likely related to acute/subacute pancreatitis with pseudocyst formation, but are incompletely imaged. Still with very limited PO intake and pain all over. No nausea or vomiting and no fever. Objective Vital Signs and I&Os Vital Signs Date Time Temp Pulse Resp B/P B/P Pulse O2 O2 Flow FiO2 Mean Ox Delivery Rate 07/27 1328 98.5 113 20 150/81 94 Room Air 07/27 0906 106 118/74 07/27 0906 106 118/74 07/27 0800 95 Room Air Room Air 07/27 0612 98.1 106 20 118/74 93 07/26 2150 98.0 109 18 120/80 98 Room Air 07/26 1611 98.4 103 18 130/80 94 Room Air Intake & Output 07/27 1600 07/27 0400 07/26 1600 07/26 0400 07/25 1600 07/25 0400 Intake Total 820 1280 2100 780 2480 365 Output Total 360 Balance 820 1280 2406 328 6131 365 Intake, IV 294 567 1096 300 1560 245 Intake, Oral 100 480 850 480 920 120 Number 1 0 0 Bowel Movements Output, Urine 360 Physical Exam General Appearance: alert, awake Respiratory: normal breath sounds, lungs clear Cardiovascular: regular rate/rhythm, Normal S1 and S2 without rub, murmur or gallop Abdomen: normal bowel sounds, soft, epigastric and LUQ tenderness without rebound or guarding Neurologic/Psychiatric: alert, oriented x 3, normal mood/affect Skin: normal color, warm/dry Current Medications: Current Medications Sig/Anay Start time Last Medication Dose Route Stop Time Status Admin Amlodipine Besylate 10 MG DAILY 07/23 1000 AC 07/27 PO 09 Bisacodyl 5 MG DAILY 07/25 1054 AC 07/27 PO 09 Clonazepam 1 MG 2200 07/24 220 AC 07/26 PO 07/31 215 2153 Cyclobenzaprine HCl 5 MG 4 TIMES/DAY PRN 07/27 1145 CAN PO Cyclobenzaprine HCl 5 MG 4 TIMES/DAY PRN 02/13 1130 AC 07/27 PO 1202 Cyclobenzaprine HCl 5 MG ONCE ONE 07/26 2030 DC 07/26 PO 07/26 Duloxetine HCl 120 MG DAILY 07/21 1311 AC 07/27 PO 09 Heparin Sodium 5,000 UNIT Q8 07/19 1400 AC 07/27 (Porcine) SC 1319 Metoprolol Succinate 100 MG DAILY 07/19 1000 AC 07/27 PO 0906 Morphine Sulfate 5 MG Q3P PRN 07/24 2100 AC 07/27 IV 1319 Promethazine HCl 25 MG .STK-MED ONE 07/26 2147 DC IM 07/26 2148 Promethazine HCl 25 MG Q6-PRN PRN 07/24 2100 AC 07/27 IV 07/31 Senna/Docusate Sodium 2 TAB DAILY PRN 07/25 1100 AC 07/25 PO 210 Sodium Chloride 1,000 ML Q10H 07/24 194 AC 07/27 IV 0400 Trazodone HCl 25 MG QPM 07/23 2199 AC 07/26 PO 215 Results Pertinent Lab Results: Laboratory Tests 07/27 07/26 0720 0725 Chemistry Sodium (137 - 145 mmol/L) 134 L 134 L Potassium (3.5 - 5.1 mmol/L) 3.8 4.2 Chloride (98 - 107 mmol/L) 96 L 96 L Carbon Dioxide (22 - 30 mmol/L) 26 25 Anion Gap (5 - 16) 12 12 BUN (7 - 17 mg/dL) 9 10 Creatinine (0.5 - 1.0 mg/dL) 0.5 0.5 Estimated GFR (>60 ml/min) > 60 > 60 BUN/Creatinine Ratio (7 - 25 %) 18.0 20.0 Calcium (8.4 - 10.2 mg/dL) 8.9 Magnesium (1.6 - 2.3 mg/dL) 1.6 Total Bilirubin (0.2 - 1.3 mg/dL) 0.3 Direct Bilirubin (< 0.4 mg/dL) 0.2 AST (14 - 36 U/L) 17 ALT (9 - 52 U/L) 24 Alkaline Phosphatase (<127 U/L) 110 Total Protein (6.3 - 8.2 g/dL) 5.2 L Albumin (3.5 - 5.0 g/dL) 2.5 L Hematology CBC w Diff NO MAN DIFF REQ NO MAN DIFF REQ WBC (4.8 - 10.8 /CUMM) 14.3 H 16.3 H RBC (4.20 - 5.40 /CUMM) 3.30 L 3.46 L Hgb (12.0 - 16.0 G/DL) 9.1 L 9.6 L Hct (37 - 47 %) 27.9 L 29.2 L MCV (81.0 - 99.0 FL) 84.7 84.6 MCH (27.0 - 31.0 PG) 27.6 27.7 MCHC (33.0 - 37.0 G/DL) 32.6 L 32.8 L RDW (11.5 - 14.5 %) 15.3 H 15.4 H Plt Count (130 - 400 /CUMM) 612 H 672 H MPV (7.4 - 10.4 FL) 7.4 7.2 L Gran % (42.2 - 75.2 %) 83.1 H 82.6 H Lymphocytes % (20.5 - 51.1 %) 7.3 L 7.7 L Monocytes % (1.7 - 9.3 %) 7.2 7.7 Eosinophils % (0 - 5 %) 2.3 1.8 Basophils % (0.0 - 2.0 %) 0.1 0.2 Absolute Granulocytes (1.4 - 6.5 /CUMM) 11.9 H 13.4 H Absolute Lymphocytes (1.2 - 3.4 /CUMM) 1.0 L 1.3 Absolute Monocytes (0.10 - 0.60 /CUMM) 1.0 H 1.2 H Absolute Eosinophils (0.0 - 0.7 /CUMM) 0.3 0.3 Absolute Basophils (0.0 - 0.2 /CUMM) 0 0 02/11 0711 Chemistry Sodium (137 - 145 mmol/L) 135 L Potassium (3.5 - 5.1 mmol/L) 4.0 Chloride (98 - 107 mmol/L) 95 L Carbon Dioxide (22 - 30 mmol/L) 30 Anion Gap (5 - 16) 11 BUN (7 - 17 mg/dL) 11 Creatinine (0.5 - 1.0 mg/dL) 0.4 L Estimated GFR (>60 ml/min) > 60 BUN/Creatinine Ratio (7 - 25 %) 27.5 H Prealbumin (17.6 - 36.0 mg/dL) 3.8 L TSH (0.270 - 4.200 uIU/mL) 2.850 Free T4 (0.64 - 1.79 ng/dL) 1.75 Hematology CBC w Diff NO MAN DIFF REQ WBC (4.8 - 10.8 /CUMM) 14.4 H RBC (4.20 - 5.40 /CUMM) 3.38 L Hgb (12.0 - 16.0 G/DL) 9.5 L Hct (37 - 47 %) 29.0 L MCV (81.0 - 99.0 FL) 85.8 MCH (27.0 - 31.0 PG) 28.0 MCHC (33.0 - 37.0 G/DL) 32.7 L RDW (11.5 - 14.5 %) 15.1 H Plt Count (130 - 400 /CUMM) 584 H MPV (7.4 - 10.4 FL) 7.4 Gran % (42.2 - 75.2 %) 80.5 H Lymphocytes % (20.5 - 51.1 %) 10.8 L Monocytes % (1.7 - 9.3 %) 5.3 Eosinophils % (0 - 5 %) 2.2 Basophils % (0.0 - 2.0 %) 1.2 Absolute Granulocytes (1.4 - 6.5 /CUMM) 11.6 H Absolute Lymphocytes (1.2 - 3.4 /CUMM) 1.6 Absolute Monocytes (0.10 - 0.60 /CUMM) 0.8 H Absolute Eosinophils (0.0 - 0.7 /CUMM) 0.3 Absolute Basophils (0.0 - 0.2 /CUMM) 0.2
[2017-07-27 23:32] VITALS: BP 120/72
--- NOTE | 2017-07-28 06:50 | PN- Housestaff ---
See Addendum Subjective Follow-up For: pancreatitis with pseudocyst Subjective: BABATUNDE. Patient did not sleep well, could not get comfortable. Complaining of abd and back pain relieved by medications. Also has some CP and SOB when she gets anxious. Feels like she can toelrate food now. Otherwise, she is feeling better about going to [place] for the procedure after talking to Dr. Canela. Review of Systems Constitutional: Reports: no symptoms. EENTM: Reports: no symptoms. Cardiovascular: Reports: no symptoms. Respiratory: Reports: no symptoms. Gastrointestinal: Reports: see HPI. Genitourinary: Reports: no symptoms. Musculoskeletal: Reports: see HPI. Skin: Reports: no symptoms. Neurological/Psychological: Reports: no symptoms. Hematologic/Endocrine: Reports: no symptoms. Immunologic/Allergic: Reports: no symptoms. Objective Last 24 Hrs of Vital Signs/I&O Vital Signs Date Time Temp Pulse Resp B/P B/P Pulse O2 O2 Flow FiO2 Mean Ox Delivery Rate 07/27 2332 98.5 114 20 120/72 96 Room Air 07/27 1328 98.5 113 20 150/81 94 Room Air 07/27 0906 106 118/74 07/27 0906 106 118/74 07/27 0800 95 Room Air Room Air Intake & Output 07/28 0800 07/28 0000 07/27 1600 Intake Total 1906 717 4685 Output Total Balance 3181 028 7109 Intake, IV 800 300 800 Intake, Oral 240 240 800 Number 2 Bowel Movements Physical Exam General Appearance: Alert, Oriented X3, Cooperative, No Acute Distress Cardiovascular: Regular Rate, Normal S1, Normal S2 Lungs: Clear to Auscultation Abdomen: Normal Bowel Sounds, Soft, diffusely tender Neurological: Normal Speech Extremities: nonpitting edema bilaterally Current Medications: Current Medications Sig/Anay Start time Last Medication Dose Route Stop Time Status Admin Amlodipine Besylate 10 MG DAILY 07/23 1000 AC 07/27 PO 09 Bisacodyl 5 MG DAILY 07/25 1054 AC 07/27 PO 09 Clonazepam 1 MG 07/24 220 AC 07/27 PO 07/31 Cyclobenzaprine HCl 5 MG 4 TIMES/DAY PRN 07/27 1145 CAN PO Cyclobenzaprine HCl 5 MG 4 TIMES/DAY PRN 07/27 1130 AC 07/27 PO 1855 Duloxetine HCl 120 MG DAILY 07/21 1311 AC 07/27 PO 0906 Heparin Sodium 5,000 UNIT Q8 07/19 1400 AC 07/28 (Porcine) SC 0633 Metoprolol Succinate 100 MG DAILY 07/19 1000 AC 07/27 PO 0906 Morphine Sulfate 5 MG Q3P PRN 07/24 2100 AC 07/28 IV 0633 Promethazine HCl 25 MG .STK-MED ONE 07/27 1205 DC IM 07/27 1206 Promethazine HCl 25 MG .STK-MED ONE 07/27 0720 DC IM 07/27 0721 Promethazine HCl 25 MG Q6-PRN PRN 07/24 2100 AC 07/28 IV 07/31 2058 0638 Senna/Docusate Sodium 2 TAB DAILY PRN 07/25 1100 AC 07/25 PO 210 Sodium Chloride 1,000 ML Q10H 07/24 194 AC 07/28 IV 020 Trazodone HCl 25 MG QPM 07/23 2200 AC 07/27 PO 220 Last 24 Hrs of Lab/Dangelo Results Last 24 Hrs of Labs/Mics: Laboratory Tests 07/27/17 0720: Anion Gap 12, Estimated GFR > 60, BUN/Creatinine Ratio 18.0, CBC w Diff NO MAN DIFF REQ, RBC 3.30 L, MCV 84.7, MCH 27.6, MCHC 32.6 L, RDW 15.3 H, MPV 7.4, Gran % 83.1 H, Lymphocytes % 7.3 L, Monocytes % 7.2, Eosinophils % 2.3, Basophils % 0.1, Absolute Granulocytes 11.9 H, Absolute Lymphocytes 1.0 L, Absolute Monocytes 1.0 H, Absolute Eosinophils 0.3, Absolute Basophils 0 Assessment/Plan Assessment: 47 YO F morbid obesity with PMH of HTN, HLD, anxiety, depression, panic attacks, post AP 1993, hx LLE DVT postop 1993 was on coumadin for a year, Hx of Choledocholithiasis and gallstone pancreatitis s/p laparoscopic cholecystectomy, necrotic pancreatitis (patient was transferred to [place]), recent admission in [facility] in June 2017 for another episode of acute pancreatitis, who presented today at the emergency room complaining of sudden onset epigastric and right upper quadrant abdominal pain. Problem list: 1. Acute pancreatitis with pseudocyst 2. Acute back pain 3. Thrombocytosis #Acute pancreatitis with pseudocyst: Patient presents with signs and symptoms of acute pancreatitis. CT imaging shows a cystic mass in the pancreatic head and pseudocyst formation. GI is recommending probable transfer to [place] for drainage after speaking to them. -Promethazine -IV morphine to control pain. Consider switching to by mouth pain meds -Appreciate GI recommendations -full liquid diet, advance as tolerated -IV fluids NS @100ml/hr -Likely transfer to [place] #Acute back pain: Likely musculoskeletal after hurting it getting into the CT scanner. -Continue cyclobenzaprine and ice/hot pack #Thrombocytosis: Likely reactive #Chronic medical problems: -Continue home medications DVT prophylaxis with enoxaparin Full liquid diet Full code Problem List: 1. Pancreatitis Pain Ratin Pain Location: abd, back Pain Goal: Remain pain free Pain Plan: see a/p Tomorrow's Labs & Rationales: none
[2017-07-28 06:56] VITALS: BP 126/74
[2017-07-28 08:07] LABS: ABSOLUTE BASOPHIL COUNT 0 /CUMM (0.0-0.2); ABSOLUTE EOSINOPHIL COUNT 0.4 /CUMM (0.0-0.7); ABSOLUTE GRANULOCYTE CT 11.1 /CUMM (1.4-6.5); ABSOLUTE LYMPH COUNT 1.1 /CUMM (1.2-3.4); ABSOLUTE MONOCYTE COUNT 0.7 /CUMM (0.10-0.60); BASOPHIL % 0.4 % (0.0-2.0); EOSINOPHIL % 2.7 % (0-5); HEMATOCRIT 27.8 % (37-47); MEAN CORPUSCULAR HGB 27.6 PG (27.0-31.0); MEAN CORPUSCULAR HGB CONC 32.4 G/DL (33.0-37.0); MEAN CORPUSCULAR VOLUME 85.1 FL (81.0-99.0); MEAN PLATELET VOLUME 7.2 FL (7.4-10.4); RBC DISTRIBUTION WIDTH 15.4 % (11.5-14.5); RED BLOOD CELL CT 3.27 /CUMM (4.20-5.40); WHITE BLOOD CELL COUNT 13.3 /CUMM (4.8-10.8)
[2017-07-28 08:50] LABS: GRANULOCYTE % 83.2 % (42.2-75.2); PLATELET COUNT 590 /CUMM (130-400)
--- NOTE | 2017-07-28 09:49 | PN- Gastroenterology ---
Assessment/Plan Assessment/Recommendations: ASSESSMENT: 1. Pancreatitis Acute on Chronic 2. Pancreatitic Pseudocyst with Walled Off Necrosis 3. Morbid Obesity RECOMMENDATIONS: 1. Believe patient will likely not be able to go home and have outpatient cyst- gastrostomy. Will speak with Dr. Adal Thomas regarding possible in-patient transfer to [facility] for procedure or possible change in date to one sooner than . 2. Pain Control -- would transition to oral agent. Cannot discharge to home unless patient on viable regimen of oral agents. 3. Diet as tolerated 4. Continue IV Fluids 5. Await results of urine culture. 6. Follow labs Subjective Subjective: Sophie had a lot of pain last night, especially in her back. She was able to eat this morning with minimal pain afterwards. She is still requiring IV MSO4. She has not had a trial of oral agents. She has had no fever or shaking chills. Objective Vital Signs and I&Os Vital Signs Date Time Temp Pulse Resp B/P B/P Pulse O2 O2 Flow FiO2 Mean Ox Delivery Rate 07/28 0933 126/74 07/28 0933 107 126/76 07/28 0656 97.8 107 18 126/74 99 Room Air 07/27 2332 98.5 114 20 120/72 96 Room Air 07/27 1328 98.5 113 20 150/81 94 Room Air Intake & Output 07/28 1600 07/28 0400 07/27 1600 07/27 0400 07/26 1600 07/26 0400 Intake Total 1846 756 3107 1280 2100 780 Output Total 360 Balance 4123 565 7935 1280 1740 780 Intake, IV 373 937 7332 800 1250 300 Intake, Oral 240 240 900 480 850 480 Number 2 Bowel Movements Output, Urine 360 Physical Exam General Appearance: alert, awake, mild distress Neck: supple, full range of motion Respiratory: normal breath sounds, lungs clear Cardiovascular: regular rate/rhythm, Normal S1 and S2 without rub, murmur or gallop Abdomen: normal bowel sounds, soft, tenderness, Epigastric / RUQ tenderness without rebound or guarding Extremities: normal inspection Neurologic/Psychiatric: oriented x 3, normal mood/affect Skin: normal color, warm/dry, pallor Current Medications: Current Medications Sig/Anay Start time Last Medication Dose Route Stop Time Status Admin Amlodipine Besylate 10 MG DAILY 02/09 1000 AC 07/28 PO 0933 Bisacodyl 5 MG DAILY 07/25 1054 AC 07/28 PO 0933 Clonazepam 1 MG 2200 07/24 2199 AC 07/27 PO 07/31 Cyclobenzaprine HCl 5 MG 4 TIMES/DAY PRN 07/27 1145 CAN PO Cyclobenzaprine HCl 5 MG 4 TIMES/DAY PRN 07/27 1130 AC 07/27 PO 1855 Duloxetine HCl 120 MG DAILY 07/21 1311 AC 07/28 PO 0933 Heparin Sodium 5,000 UNIT Q8 07/19 1400 AC 07/28 (Porcine) SC 0633 Metoprolol Succinate 100 MG DAILY 07/19 1000 AC 07/28 PO 0933 Morphine Sulfate 5 MG Q3P PRN 07/24 2100 AC 07/28 IV 0933 Promethazine HCl 25 MG .STK-MED ONE 07/27 1205 DC IM 07/27 1206 Promethazine HCl 25 MG Q6-PRN PRN 07/24 2100 AC 07/28 IV 07/31 2058 0638 Senna/Docusate Sodium 2 TAB DAILY PRN 07/25 1100 AC 07/25 PO 210 Sodium Chloride 1,000 ML Q10H 07/24 194 AC 07/28 IV 0202 Trazodone HCl 25 MG QPM 07/23 2199 AC 07/27 PO 2204 Results Pertinent Lab Results: Laboratory Tests 07/28 07/27 0708 0720 Chemistry Sodium (137 - 145 mmol/L) 136 L 134 L Potassium (3.5 - 5.1 mmol/L) 3.9 3.8 Chloride (98 - 107 mmol/L) 97 L 96 L Carbon Dioxide (22 - 30 mmol/L) 26 26 Anion Gap (5 - 16) 13 12 BUN (7 - 17 mg/dL) 7 9 Creatinine (0.5 - 1.0 mg/dL) 0.5 0.5 Estimated GFR (>60 ml/min) > 60 > 60 BUN/Creatinine Ratio (7 - 25 %) 14.0 18.0 Total Bilirubin (0.2 - 1.3 mg/dL) 0.3 Direct Bilirubin (< 0.4 mg/dL) 0.2 AST (14 - 36 U/L) 15 ALT (9 - 52 U/L) 23 Alkaline Phosphatase (<127 U/L) 112 Total Protein (6.3 - 8.2 g/dL) 5.2 L Albumin (3.5 - 5.0 g/dL) 2.6 L Hematology CBC w Diff NO MAN DIFF REQ NO MAN DIFF REQ WBC (4.8 - 10.8 /CUMM) 13.3 H 14.3 H RBC (4.20 - 5.40 /CUMM) 3.27 L 3.30 L Hgb (12.0 - 16.0 G/DL) 9.0 L 9.1 L Hct (37 - 47 %) 27.8 L 27.9 L MCV (81.0 - 99.0 FL) 85.1 84.7 MCH (27.0 - 31.0 PG) 27.6 27.6 MCHC (33.0 - 37.0 G/DL) 32.4 L 32.6 L RDW (11.5 - 14.5 %) 15.4 H 15.3 H Plt Count (130 - 400 /CUMM) 590 H 612 H MPV (7.4 - 10.4 FL) 7.2 L 7.4 Gran % (42.2 - 75.2 %) 83.2 H 83.1 H Lymphocytes % (20.5 - 51.1 %) 8.4 L 7.3 L Monocytes % (1.7 - 9.3 %) 5.3 7.2 Eosinophils % (0 - 5 %) 2.7 2.3 Basophils % (0.0 - 2.0 %) 0.4 0.1 Absolute Granulocytes (1.4 - 6.5 /CUMM) 11.1 H 11.9 H Absolute Lymphocytes (1.2 - 3.4 /CUMM) 1.1 L 1.0 L Absolute Monocytes (0.10 - 0.60 /CUMM) 0.7 H 1.0 H Absolute Eosinophils (0.0 - 0.7 /CUMM) 0.4 0.3 Absolute Basophils (0.0 - 0.2 /CUMM) 0 0 02/12 0725 Chemistry Sodium (137 - 145 mmol/L) 134 L Potassium (3.5 - 5.1 mmol/L) 4.2 Chloride (98 - 107 mmol/L) 96 L Carbon Dioxide (22 - 30 mmol/L) 25 Anion Gap (5 - 16) 12 BUN (7 - 17 mg/dL) 10 Creatinine (0.5 - 1.0 mg/dL) 0.5 Estimated GFR (>60 ml/min) > 60 BUN/Creatinine Ratio (7 - 25 %) 20.0 Calcium (8.4 - 10.2 mg/dL) 8.9 Magnesium (1.6 - 2.3 mg/dL) 1.6 Total Bilirubin (0.2 - 1.3 mg/dL) 0.3 Direct Bilirubin (< 0.4 mg/dL) 0.2 AST (14 - 36 U/L) 17 ALT (9 - 52 U/L) 24 Alkaline Phosphatase (<127 U/L) 110 Total Protein (6.3 - 8.2 g/dL) 5.2 L Albumin (3.5 - 5.0 g/dL) 2.5 L Hematology CBC w Diff NO MAN DIFF REQ WBC (4.8 - 10.8 /CUMM) 16.3 H RBC (4.20 - 5.40 /CUMM) 3.46 L Hgb (12.0 - 16.0 G/DL) 9.6 L Hct (37 - 47 %) 29.2 L MCV (81.0 - 99.0 FL) 84.6 MCH (27.0 - 31.0 PG) 27.7 MCHC (33.0 - 37.0 G/DL) 32.8 L RDW (11.5 - 14.5 %) 15.4 H Plt Count (130 - 400 /CUMM) 672 H MPV (7.4 - 10.4 FL) 7.2 L Gran % (42.2 - 75.2 %) 82.6 H Lymphocytes % (20.5 - 51.1 %) 7.7 L Monocytes % (1.7 - 9.3 %) 7.7 Eosinophils % (0 - 5 %) 1.8 Basophils % (0.0 - 2.0 %) 0.2 Absolute Granulocytes (1.4 - 6.5 /CUMM) 13.4 H Absolute Lymphocytes (1.2 - 3.4 /CUMM) 1.3 Absolute Monocytes (0.10 - 0.60 /CUMM) 1.2 H Absolute Eosinophils (0.0 - 0.7 /CUMM) 0.3 Absolute Basophils (0.0 - 0.2 /CUMM) 0
[2017-07-28 11:02] VITALS: BP 100/62
[2017-07-28 14:11] VITALS: BP 120/80
--- NOTE | 2017-07-28 16:14 | RADIOLOGY REPORT ---
EXAMINATION: CR PORTABLE CHEST CLINICAL INFORMATION: Bilateral wheezing. Right lower lobe decreased breath sounds. Rule out fluid overload and pneumonia. COMPARISON: Chest x-ray dated 07/18/2017 and older exams. CTA of the chest dated 07/26/2017. TECHNIQUE: Portable AP semierect view of the chest was obtained. FINDINGS: The cardiomediastinal silhouette is within normal limits in size. Low lung volumes are seen with patchy opacity in the left lung base, consistent with the recently demonstrated small effusion and associated dependent atelectatic changes in the left lung base. Mild central vascular congestion is seen. No overt pulmonary edema is noted. No pneumothorax is seen. Bony structures are unremarkable. IMPRESSION: 1. Low lung volumes with left basilar effusion and associated left basilar opacity, likely representing atelectasis. Clinical correlation requested to exclude pneumonia. Findings are unchanged from recent CT scan. 2. No pulmonary edema.
[2017-07-28 22:13] VITALS: BP 122/84
[2017-07-29 06:39] VITALS: BP 140/90
--- NOTE | 2017-07-29 07:10 | PN- Housestaff ---
See Addendum Subjective Follow-up For: panreatitis with pseudocyst Subjective: No overnight events. She slept better but not great last night. Still having some abdominal discomfort, worse with movement. Feels drousy still. Also complaining of some shortness of breath and productive cough. No CP. She has chills and sweats, but t his is chronic for her. Back feels better Review of Systems Constitutional: Reports: see HPI. EENTM: Reports: no symptoms. Cardiovascular: Reports: no symptoms. Respiratory: Reports: see HPI. Gastrointestinal: Reports: see HPI. Genitourinary: Reports: no symptoms. Musculoskeletal: Reports: no symptoms. Skin: Reports: no symptoms. Neurological/Psychological: Reports: no symptoms. Hematologic/Endocrine: Reports: no symptoms. Immunologic/Allergic: Reports: no symptoms. Objective Last 24 Hrs of Vital Signs/I&O Vital Signs Date Time Temp Pulse Resp B/P B/P Pulse O2 O2 Flow FiO2 Mean Ox Delivery Rate 07/29 0639 98.2 114 20 140/90 92 Room Air 07/29 0000 Room Air 07/28 2213 97.7 118 18 122/84 95 Room Air 07/28 1930 Room Air 07/28 1600 Room Air Room Air 07/28 1411 97.4 110 20 120/80 95 Room Air 07/28 1102 98.8 114 18 100/62 92 Room Air 07/28 0933 126/74 07/28 0933 107 126/76 07/28 0800 Room Air Intake & Output 07/29 0800 07/29 0000 07/28 1600 Intake Total 4419 899 2663 Output Total Balance 6054 803 9247 Intake, IV 1100 340 800 Intake, Oral 480 120 325 Number 0 0 Bowel Movements Physical Exam General Appearance: Alert, Oriented X3, Cooperative, No Acute Distress Skin: No Rashes Cardiovascular: Regular Rate, Normal S1, Normal S2 Lungs: crackles LLL base Abdomen: Normal Bowel Sounds, Soft, tender in epigastrium Neurological: Normal Speech Extremities: Normal Pulses, nonpitting edema Current Medications: Current Medications Sig/Anay Start time Last Medication Dose Route Stop Time Status Admin Acetaminophen 975 MG Q8P PRN 07/28 1515 AC PO Amlodipine Besylate 10 MG DAILY 07/23 1000 AC 07/28 PO 0933 Bisacodyl 5 MG DAILY 07/25 1054 AC 07/28 PO 0933 Clonazepam 0.5 MG ONCE ONE 07/29 0400 DC 07/29 PO 07/29 0401 0423 Clonazepam 1 MG 2200 07/24 2200 AC 07/28 PO 07/31 2158 213 Cyclobenzaprine HCl 5 MG 4 TIMES/DAY PRN 07/27 1130 DC 07/27 PO 1855 Duloxetine HCl 120 MG DAILY 07/21 1311 AC 07/28 PO 0933 Heparin Sodium 5,000 UNIT Q8 07/19 1400 AC 07/29 (Porcine) SC 0554 Metoprolol Succinate 100 MG DAILY 07/19 1000 AC 07/28 PO 0933 Morphine Sulfate 5 MG Q3P PRN 07/28 1510 AC 07/29 IV 0422 Morphine Sulfate 5 MG Q4 PRN 07/28 1012 DC 07/28 IV 1503 Morphine Sulfate 30 MG BID 07/28 1008 DC PO Morphine Sulfate 5 MG Q3P PRN 07/24 2100 DC 07/28 IV 0933 Patient Medication 1 ED ONE ONE 07/28 1145 DC Teaching ED 07/28 1146 Promethazine HCl 25 MG .STK-MED ONE 07/28 1705 DC IM 07/28 1706 Promethazine HCl 25 MG .STK-MED ONE 07/28 1700 DC IM 07/28 1701 Promethazine HCl 25 MG Q6-PRN PRN 07/24 2100 AC 07/28 IV 07/31 205 2333 Senna/Docusate Sodium 2 TAB DAILY PRN 07/25 1100 AC 07/25 PO 2109 Sodium Chloride 1,000 ML Q10H 07/24 1945 AC 07/28 IV 2333 Trazodone HCl 25 MG QPM 07/23 220 AC 07/28 PO 213 Assessment/Plan Assessment: 47 YO F morbid obesity with PMH of HTN, HLD, anxiety, depression, panic attacks, post AP 1993, hx LLE DVT postop 1993 was on coumadin for a year, Hx of Choledocholithiasis and gallstone pancreatitis s/p laparoscopic cholecystectomy, necrotic pancreatitis (patient was transferred to [email or web address]), recent admission in [facility] in June 2017 for another episode of acute pancreatitis, who presented complaining of sudden onset epigastric and right upper quadrant abdominal pain. Problem list: 1. Acute pancreatitis with pseudocyst 2. Acute back pain 3. Thrombocytosis #Acute pancreatitis with pseudocyst: Patient presented with signs and symptoms of acute pancreatitis. CT imaging shows a cystic mass in the pancreatic head and pseudocyst formation. GI is recommending probable transfer to [place] for drainage after speaking to them. We are still waiting acceptance by gastroenterology [facility]. -Promethazine -IV morphine to control pain. 3mg Q3H -MS Contin 15mg BID -Appreciate GI recommendations -Regular diet -IV fluids NS @100ml/hr -Likely transfer to [place] #Acute back pain: Likely musculoskeletal after hurting it getting into the CT scanner. It has improved. We stopped the cyclobenzaprine because it was causing her to be drowsy. -Continue to monitor #Thrombocytosis: Likely reactive #Chronic medical problems: -Continue home medications DVT prophylaxis with enoxaparin Regular diet Full code Problem List: 1. Acute gallstone pancreatitis Pain Ratin Pain Location: abd Pain Goal: Remain pain free Pain Plan: see a/p Tomorrow's Labs & Rationales: no
--- NOTE | 2017-07-29 13:16 | Discharge Summary ---
Visit Information Visit Dates Admission Date: 07/18/17 Discharge Date: 08/01/17 Hospital Course [facility]: Hermelindo BRUNNER,[facility] Course: Ms. Kwok is a 47 years old woman with PMH of HTN, HLD, anxiety, depression, panic attacks, DVT postop 1994 was on coumadin for a year, Choledocholithiasis, gallstone pancreatitis s/p laparoscopic cholecystectomy, and necrotic pancreatitis (patient was transferred to means without drainage), recently discharged from [facility] on 2017 after being treated for pancreatitis who was admitted for acute pancreatitis with pseudocyst. Admission data: Vitals: T max 100.6, pulse 150 on arrival improved to 100, RR 20, blood pressure 134/98, saturating 94% on room air On Exam: A O 3, cooperative, obese, moderate distress due to pain, neck supple, JVD normal, no lymphadenopathy, mucosa dry, no focal neurological deficit, no dependent edema, no obvious skin rashes or inflammation CVS: S1-S2, RRR. RS: Clear to auscultate bilaterally. Abdomen: Soft, tender to touch RUQ and epigastrium, no guarding or rigidity, ND, bowel sounds present. Peripheral pulses perfusion normal Labs: WBC 12.9, hemoglobin 12.0, hematocrit 36.4, platelets 510, sodium 139, potassium 3.8, chloride 97, bicarbonate 24, BUN 6, creatinine 0.6, glucose 123, calcium 9.1, bilirubin 0.5, AST 20, ALT 31, alkaline phosphatase 170, troponin less than 0.01, albumin 3.2, lipase 5577 CXR:Limited study, no acute infiltrates. CT abdomen and pelvis with IV contrast: 1. No suspected new areas of pancreatic necrosis. 2. Lobulated pancreatic cystic collection has decreased slightly in size compared with the MRI 06/21/2017. 3. However the immediately generalized surrounding inflammatory change may have increased slightly but without any new discrete fluid collection. 4. Additional findings including left renal cyst and degenerative disc disease unchanged. She was admitted to general medicine and treated for the following problems: 1. Acute gallstone pancreatitis with pseudocyst 2. Acute back pain 3. Thrombocytosis #Acute gallstone pancreatitis with pseudocyst: Patient presented with signs and symptoms of acute pancreatitis. Initial imaging showed no suspected new areas of pancreatic necrosis, lobulated pancreatic cystic collection that decreased slightly in size, and inflammatory changes that may have increased but without any new discrete fluid collection. Abdominal ultrasound the following day showed a poorly imaged cystic mass within the head of the pancreas measuring at least 7.6 cm. The patient was made nothing by mouth and started on IV lactated Ringer's with antibiotics and pain control. She has observed off antibiotics and GI was consulted. GI noted that the pseudocyst was walled off with necrosis and a plan was made to consult gastroenterology [place] to see whether she would be a good candidate for cyst gastrotomy. Dr. Adal Thomas at [facility] was contacted and she was scheduled for outpatient gastrotomy on August 05. Meanwhile the patient's diet was advanced as tolerated and she was continued on fluids, antiemetics, and pain control as necessary. However, the patient was not tolerating food well and her diet was converted back to clear liquids. Because she had persistent pain and was not tolerating food, it was thought that she may benefit from direct hospital to hospital transfer. This is now planned for 08/01/2017 that she may have the procedure on the following Wednesday. Since then, her pain medication is being converted to oral and tapered due to increased drowsiness. She is also now tolerating small amounts of regular food. She'll now be transferred to [facility] on 08/01/17 for gastrotomy on 08/02/2017. She'll receive further care and instructions there. #Acute back pain: The patient developed acute back pain after hurting it getting into the CT scanner. It has improved. She was initially on cyclobenzaprine but this caused increased drowsiness so was discontinued. Her back pain has resolved. #Thrombocytosis: Patient has persistent thrombocytosis, likely reactive in the setting of her acute medical illness. #Chronic medical problems: Her home medications were continued. Allergies: Coded Allergies: Sulfa (Sulfonamide Antibiotics) (Intermediate, RASH 05/21/17) valsartan (From DIOVAN) (RETAIN WATER PER PT 07/18/17) Disposition Summary Disposition Principal Diagnosis: 1. Acute gallstone pancreatitis with pseudocyst Additional Diagnosis: 2. Acute back pain 3. Thrombocytosis Discharge Disposition: other general hospital Discharge Instructions General Discharge Information Code Status: Full Code Patient's Diet: Per medicine team Patient's Activity: As tolerated Follow-Up Instructions/Appts: Patient is being transferred to [facility] and will receive further instruction from primary team there. Medications at Discharge Discharge Medications: Continue taking these medications: Metoprolol Succinate (Metoprolol Succinate) 100 MG TAB.ER.24H 1 Tablet ORAL DAILY Qty = 30 Comments: Last Taken: 07/23/17 Time: 9:00 AM Amlodipine Besylate (Amlodipine Besylate) 5 MG TABLET 2 Tablet ORAL DAILY Qty = 30 Comments: Last Taken: 07/23/17 Time: 11:00 AM Ergocalciferol (Vitamin D2) (Vitamin D2) 50,000 UNIT CAPSULE 1 Capsule ORAL EVERY WEDNESDAY Qty = 4 Comments: NOT GIVEN IN HOSPITAL Montelukast Sodium (Montelukast Sodium) 10 MG TABLET 1 Tablet ORAL DAILY Qty = 30 Comments: NOT GIVEN IN HOSPITAL Trazodone HCl (Trazodone HCl) 50 MG TABLET 1-2 Tablet ORAL Every night Qty = 30 Comments: Last Taken:06/22/17 Time:2100 Duloxetine HCl (Duloxetine HCl) 60 MG CAPSULE.DR 2 Capsule ORAL DAILY Qty = 60 Comments: Last Taken: 07/23/17 Time: 9:00 AM Clonazepam (Clonazepam) 1 MG TABLET 1 Tablet ORAL 2 x Daily as needed as needed for ANXIETY Qty = 60 Comments: Last Taken: 07/23/17 Time: 10:30 AM Oxycodone HCl (Oxycodone HCl) 5 MG TABLET 1 Tablet ORAL Q4H as needed for PAIN Qty = 42 Pantoprazole Sodium (Pantoprazole Sodium) 40 MG TABLET.DR 1 Tablet ORAL DAILY Qty = 30 Start taking the following new medications: Ondansetron HCl (Zofran) 4 MG TABLET 1 Tablet ORAL Every 6-8 Hours as Needed as needed for Nausea Qty = 10 No Refills Instructions: . Comments: NOT GIVEN IN HOSPITAL Copies To: Hermelindo BRUNNER,Bienvenido; Rola BRUNNER,Lorena
[2017-07-29 13:34] VITALS: BP 140/80
--- NOTE | 2017-07-29 21:10 | ULTRASOUND REPORT ---
EXAMINATION: US TRIPLEX LOWER EXTREMITY, LEFT CLINICAL INFORMATION: Left lower extremity swelling and pain. COMPARISON: None TECHNIQUE: Color-flow triplex imaging with spectral analysis and compression Doppler were performed on the lower extremity. FINDINGS: Respiratory variation, normal compression and augmented flow are noted throughout the lower extremity. The visualized common femoral vein, superficial femoral vein, profunda femoral vein, popliteal vein and midcalf peroneal and posterior tibial venous segments show no evidence of deep venous thrombosis. There is no Sweeney's cyst. IMPRESSION: Normal triplex scan without evidence of deep venous thrombosis involving the lower extremity.
[2017-07-30 06:37] VITALS: BP 128/78
--- NOTE | 2017-07-30 06:57 | PN- Housestaff ---
See Addendum Subjective Follow-up For: pancreatitis with peusodcyst Subjective: No overnight events. Patient did not sleep well and feels drowsy. She agrees with tapering pain medications. Pain is minimal without movement right now. She is eating, <50% of meals. Review of Systems Constitutional: Reports: no symptoms. EENTM: Reports: no symptoms. Cardiovascular: Reports: no symptoms. Respiratory: Reports: no symptoms. Gastrointestinal: Reports: see HPI. Genitourinary: Reports: no symptoms. Musculoskeletal: Reports: no symptoms. Skin: Reports: no symptoms. Neurological/Psychological: Reports: see HPI. Hematologic/Endocrine: Reports: no symptoms. Immunologic/Allergic: Reports: no symptoms. Objective Last 24 Hrs of Vital Signs/I&O Vital Signs Date Time Temp Pulse Resp B/P B/P Pulse O2 O2 Flow FiO2 Mean Ox Delivery Rate 07/30 0637 98.1 108 20 128/78 95 07/30 0000 Room Air 07/29 1600 Room Air 07/29 1334 97.9 111 20 140/80 93 07/29 1148 Room Air 07/29 1139 95 Room Air 07/29 0955 114 140/90 07/29 0955 114 140/90 07/29 0800 94 Room Air Room Air Intake & Output 07/30 0800 07/30 0000 07/29 1600 Intake Total 250 1400 Output Total Balance 250 1400 Intake, IV 800 Intake, Oral 250 600 Physical Exam General Appearance: Alert, Oriented X3, Cooperative, No Acute Distress Cardiovascular: Normal S1, Normal S2, tachy Lungs: Clear to Auscultation Abdomen: Normal Bowel Sounds, Soft, mild epigastric tenderness Neurological: Normal Tone Extremities: 1+ pitting edema Current Medications: Current Medications Sig/Anay Start time Last Medication Dose Route Stop Time Status Admin Acetaminophen 975 MG Q8P PRN 07/28 1515 AC PO Albuterol Sulfate 3 ML Q4P PRN 07/29 1145 AC 07/29 INH 1136 Amlodipine Besylate 10 MG DAILY 07/23 1000 AC 07/29 PO 0955 Bisacodyl 5 MG DAILY 07/25 1054 AC 07/29 PO 0953 Clonazepam 1 MG 2200 07/24 2200 AC 07/29 PO 07/31 2159 2131 Duloxetine HCl 120 MG DAILY 07/21 1311 AC 07/29 PO 0953 Heparin Sodium 5,000 UNIT Q8 07/19 1400 AC 07/30 (Porcine) SC 0547 Metoprolol Succinate 100 MG DAILY 07/19 1000 AC 07/29 PO 0955 Morphine Sulfate 3 MG Q4P PRN 07/29 1130 AC 07/30 IV 0547 Morphine Sulfate 3 MG Q3P PRN 07/29 1030 DC IV Morphine Sulfate 15 MG BID 07/29 1015 AC 07/29 PO 2131 Morphine Sulfate 5 MG Q3P PRN 07/28 1510 DC 07/29 IV 0759 Ondansetron HCl 4 MG Q6P PRN 07/29 1115 AC 07/29 IV 2311 Promethazine HCl 25 MG .STK-MED ONE 07/29 0756 DC IM 07/29 0757 Promethazine HCl 25 MG Q6-PRN PRN 07/24 2100 DC 07/29 IV 07/31 2058 0801 Senna/Docusate Sodium 2 TAB DAILY PRN 07/25 1100 AC 07/25 PO 2109 Sodium Chloride 1,000 ML Q10H 07/24 1945 AC 07/29 IV 2000 Trazodone HCl 25 MG QPM 07/23 2200 AC 07/29 PO 2131 Assessment/Plan Assessment: 47 YO F morbid obesity with PMH of HTN, HLD, anxiety, depression, panic attacks, post AP 1993, hx LLE DVT postop 1993 was on coumadin for a year, Hx of Choledocholithiasis and gallstone pancreatitis s/p laparoscopic cholecystectomy, necrotic pancreatitis (patient was transferred to [place]), recent admission in [facility] in June 2017 for another episode of acute pancreatitis, who presented complaining of sudden onset epigastric and right upper quadrant abdominal pain. Problem list: 1. Acute pancreatitis with pseudocyst 2. Acute back pain 3. Thrombocytosis #Acute pancreatitis with pseudocyst: Patient presented with signs and symptoms of acute pancreatitis. CT imaging shows a cystic mass in the pancreatic head and pseudocyst formation. Dr. Adal Thomas has accepted the patient for cyst- gastrostomy on Wednesday. We will transfer the patient to [facility] on Wednesday, August 01. -Promethazine -Tapering IV morphine -MS Contin 15mg BID -Appreciate GI recommendations -Regular diet -IV fluids NS @100ml/hr #Acute back pain: Likely musculoskeletal after hurting it getting into the CT scanner. It has improved. We stopped the cyclobenzaprine because it was causing her to be drowsy. -Continue to monitor #Thrombocytosis: Likely reactive #Chronic medical problems: -Continue home medications DVT prophylaxis with enoxaparin Regular diet Full code Problem List: 1. Pseudocyst of pancreas Pain Ratin Pain Location: none Pain Goal: Remain pain free Pain Plan: see a/p Tomorrow's Labs & Rationales: no
[2017-07-30 15:18] VITALS: BP 120/80
--- NOTE | 2017-07-30 17:45 | PN- Gastroenterology ---
Assessment/Plan GI Assessment/Recommendations: ASSESSMENT: 1. Acute on Chronic Pancreatitis 2. Pancreatic Pseudocyts/Walled off Necrosis 3. Abdominal Pain RECOMMENDATIONS: 1. Spoke with Dr. Adal Thomas. Patient to be transferred to [facility] on Wednesday 2. Patient will have cyst gastrostomy for definitive treatment on Wednesday 3. I am legal secretary receptionist this and will help coordinate transfer with Dr. Thomas Subjective Subjective: Patient still with a considerable amount of pain. Still unable to eat much. Is attempting to cut back on narcotics. Objective Vital Signs and I&Os Vital Signs Date Time Temp Pulse Resp B/P B/P Pulse O2 O2 Flow FiO2 Mean Ox Delivery Rate 07/30 1600 95 Room Air Room Air 07/30 1518 98.2 110 20 120/80 96 Room Air 07/30 1131 93 Room Air Room Air 07/30 1004 108 126/74 07/30 1004 108 126/74 07/30 0800 94 Room Air Room Air 07/30 0637 98.1 108 20 128/78 95 07/30 0000 Room Air Intake & Output 07/30 1600 07/30 0400 07/29 1600 07/29 0400 07/28 1600 07/28 0400 Intake Total 1050 2980 460 2165 540 Output Total 300 Balance 750 2980 460 2165 540 Intake, IV 200 9740 643 8276 300 Intake, Oral 850 1080 120 565 240 Number 1 0 0 Bowel Movements Output, Urine 300 Physical Exam General Appearance: well developed/nourished, alert, awake, mild distress Respiratory: normal breath sounds, lungs clear Cardiovascular: regular rate/rhythm, Normal S1 and S2 Abdomen: tenderness, No rebound or guarding Neurologic/Psychiatric: alert, oriented x 3 Results Pertinent Lab Results: Laboratory Tests 07/28 0708 Chemistry Sodium (137 - 145 mmol/L) 136 L Potassium (3.5 - 5.1 mmol/L) 3.9 Chloride (98 - 107 mmol/L) 97 L Carbon Dioxide (22 - 30 mmol/L) 26 Anion Gap (5 - 16) 13 BUN (7 - 17 mg/dL) 7 Creatinine (0.5 - 1.0 mg/dL) 0.5 Estimated GFR (>60 ml/min) > 60 BUN/Creatinine Ratio (7 - 25 %) 14.0 Total Bilirubin (0.2 - 1.3 mg/dL) 0.3 Direct Bilirubin (< 0.4 mg/dL) 0.2 AST (14 - 36 U/L) 15 ALT (9 - 52 U/L) 23 Alkaline Phosphatase (<127 U/L) 112 Total Protein (6.3 - 8.2 g/dL) 5.2 L Albumin (3.5 - 5.0 g/dL) 2.6 L Hematology CBC w Diff NO MAN DIFF REQ WBC (4.8 - 10.8 /CUMM) 13.3 H RBC (4.20 - 5.40 /CUMM) 3.27 L Hgb (12.0 - 16.0 G/DL) 9.0 L Hct (37 - 47 %) 27.8 L MCV (81.0 - 99.0 FL) 85.1 MCH (27.0 - 31.0 PG) 27.6 MCHC (33.0 - 37.0 G/DL) 32.4 L RDW (11.5 - 14.5 %) 15.4 H Plt Count (130 - 400 /CUMM) 590 H MPV (7.4 - 10.4 FL) 7.2 L Gran % (42.2 - 75.2 %) 83.2 H Lymphocytes % (20.5 - 51.1 %) 8.4 L Monocytes % (1.7 - 9.3 %) 5.3 Eosinophils % (0 - 5 %) 2.7 Basophils % (0.0 - 2.0 %) 0.4 Absolute Granulocytes (1.4 - 6.5 /CUMM) 11.1 H Absolute Lymphocytes (1.2 - 3.4 /CUMM) 1.1 L Absolute Monocytes (0.10 - 0.60 /CUMM) 0.7 H Absolute Eosinophils (0.0 - 0.7 /CUMM) 0.4 Absolute Basophils (0.0 - 0.2 /CUMM) 0
[2017-07-30 21:47] VITALS: BP 136/82
[2017-07-30 22:31] VITALS: BP 118/72
[2017-07-31 06:24] VITALS: BP 122/82
--- NOTE | 2017-07-31 07:44 | PN- Housestaff ---
See Addendum Subjective Follow-up For: pancreatitis with pseudocyst backpain thrombocytosis Subjective: No acute events overnight. Pt concerned pt was not AOX3 however i saw the patient last night and in the AM and she was AOX3. Nurses then stated she was AOX3 also. Pt states she is constipated and requests suppository. Review of Systems Constitutional: Reports: no symptoms. Cardiovascular: Reports: no symptoms. Respiratory: Reports: no symptoms. Gastrointestinal: Reports: constipation. Genitourinary: Reports: no symptoms. Musculoskeletal: Reports: no symptoms. Objective Last 24 Hrs of Vital Signs/I&O Vital Signs Date Time Temp Pulse Resp B/P B/P Pulse O2 O2 Flow FiO2 Mean Ox Delivery Rate 07/31 0938 110 124/82 07/31 0938 110 124/82 07/31 0800 Room Air 07/31 0624 98.2 103 20 122/82 95 07/30 2231 118/72 07/30 2147 98.3 115 20 136/82 95 Room Air 07/30 1600 95 Room Air Room Air 07/30 1518 98.2 110 20 120/80 96 Room Air Intake & Output 07/31 1600 07/31 0800 07/31 0000 Intake Total 360 Output Total 275 800 Balance -275 -440 Intake, Oral 360 Output, Urine 275 800 Physical Exam General Appearance: Alert, Oriented X3, Cooperative, No Acute Distress Cardiovascular: Regular Rate, Normal S1, Normal S2 Lungs: Clear to Auscultation, Normal Air Movement Abdomen: diffuse abd tenderness luciano in the epigastric and supraumbilicus reigons Extremities: 2+ LE edema b/l Vascular: 2+ radial pulses Current Medications: Current Medications Sig/Anay Start time Last Medication Dose Route Stop Time Status Admin Acetaminophen 975 MG Q8P PRN 07/28 1515 AC 07/31 PO 0152 Albuterol Sulfate 3 ML Q4P PRN 07/29 1145 AC 07/29 INH 1136 Amlodipine Besylate 10 MG DAILY 07/23 1000 AC 07/31 PO 0938 Bisacodyl 10 MG ONCE PRN 07/31 0700 AC 07/31 WI 0814 Bisacodyl 5 MG DAILY 07/25 1054 AC 07/31 PO 0939 Clonazepam 1 MG 2200 07/24 2200 AC 07/30 PO 07/31 2159 2221 Duloxetine HCl 120 MG DAILY 07/21 1311 AC 07/31 PO 0938 Enoxaparin Sodium 40 MG DAILY 07/31 1000 AC 07/31 SC 0938 Heparin Sodium 5,000 UNIT Q8 07/19 1400 DC 07/30 (Porcine) SC 07/31 0300 2222 Metoprolol Succinate 100 MG DAILY 07/19 1000 AC 07/31 PO 0938 Morphine Sulfate 15 MG BID 07/29 1015 AC 07/31 PO 0938 Ondansetron HCl 4 MG Q6P PRN 07/29 1115 AC 07/29 IV 2311 Ramelteon 8 MG AT BEDTIME 07/30 2200 AC 07/30 PO 2221 Senna/Docusate Sodium 2 TAB DAILY PRN 07/25 1100 AC 07/25 PO 210 Assessment/Plan Assessment: 47 YO F morbid obesity with PMH of HTN, HLD, anxiety, depression, panic attacks, post AP 1993, hx LLE DVT postop 1993 was on coumadin for a year, Hx of Choledocholithiasis and gallstone pancreatitis s/p laparoscopic cholecystectomy, necrotic pancreatitis (patient was transferred to [facility]), recent admission in [facility] in June 2017 for another episode of acute pancreatitis, who presented complaining of sudden onset epigastric and right upper quadrant abdominal pain. Problem list: 1. Acute pancreatitis with pseudocyst 2. Acute back pain 3. Thrombocytosis #Acute pancreatitis with pseudocyst: Patient presented with signs and symptoms of acute pancreatitis. CT imaging shows a cystic mass in the pancreatic head and pseudocyst formation. Dr. Adal Thomas has accepted the patient for cyst- gastrostomy on Wednesday. We will transfer the patient to [place] on Wednesday, August 01. -Promethazine -off iv morphine, prn tylenol for pain -MS Contin 15mg BID -Appreciate GI recommendations -Regular diet -IV fluids NS @100ml/hr -Plan for [facility] transfer on Wednesday for cyst drainage #Acute back pain: Likely musculoskeletal after hurting it getting into the CT scanner. It has improved. We stopped the cyclobenzaprine because it was causing her to be drowsy. -Continue to monitor #Thrombocytosis: Likely reactive #Chronic medical problems: -Continue home medications DVT prophylaxis with enoxaparin Regular diet Full code Problem List: 1. Pseudocyst of pancreas Pain Ratin Pain Location: diffuse Pain Goal: Pain 4 or less Pain Plan: pain pathway Tomorrow's Labs & Rationales: cbc bep
--- NOTE | 2017-07-31 13:33 | PN- Gastroenterology ---
Assessment/Plan GI Assessment/Recommendations: ASSESSMENT: 1. Pancreatic Pseudocyst 2. Acute Pancreatitis RECOMMENDATIONS: Transfer tomorrow to [facility] for Cyst Gastrostomy. I will help coordinate transfer tiwth Dr. Adal Thomas. Subjective Subjective: Patient with much less pain. Is receiving decreased doses of morphine. Had had episodes of confusion on morphine and is feeling much clearer. Have discussed with patient transferred tomorrow to [facility] for cyst gastrostomy. Objective Vital Signs and I&Os Vital Signs Date Time Temp Pulse Resp B/P B/P Pulse O2 O2 Flow FiO2 Mean Ox Delivery Rate 07/31 0938 110 124/82 07/31 0938 110 124/82 07/31 0800 Room Air 07/31 0624 98.2 103 20 122/82 95 07/30 2231 118/72 07/30 2147 98.3 115 20 136/82 95 Room Air 07/30 1600 95 Room Air Room Air 07/30 1518 98.2 110 20 120/80 96 Room Air Intake & Output 07/31 1600 07/31 0400 07/30 1600 07/30 0400 07/29 1600 07/29 0400 Intake Total 360 1050 2980 460 Output Total 275 800 300 Balance -275 -549 805 0954 460 Intake, IV 200 1900 340 Intake, Oral 077 726 0919 120 Number 1 0 0 Bowel Movements Output, Urine 275 800 300 Physical Exam General Appearance: alert, awake, mild distress Head: normal appearance Respiratory: normal breath sounds, lungs clear Cardiovascular: regular rate/rhythm, Normal S1 and S2 without rub, murmur or gallop Abdomen: normal bowel sounds, soft, Mild tenderness RUQ/Epigastrium without rebound or guarding Neurologic/Psychiatric: awake, alert, oriented x 3, normal mood/affect Skin: pallor Current Medications: Current Medications Sig/Anay Start time Last Medication Dose Route Stop Time Status Admin Acetaminophen 975 MG Q8P PRN 07/28 1515 AC 07/31 PO 0152 Albuterol Sulfate 3 ML Q4P PRN 07/29 1145 AC 07/29 INH 1136 Amlodipine Besylate 10 MG DAILY 07/23 1000 AC 07/31 PO 0938 Bisacodyl 10 MG ONCE PRN 07/31 0700 AC 07/31 IA 0814 Bisacodyl 5 MG DAILY 07/25 1054 AC 07/31 PO 0939 Clonazepam 1 MG 2200 10 2200 AC 07/30 PO 07/31 2159 2221 Duloxetine HCl 120 MG DAILY 07/21 1311 AC 07/31 PO 0938 Enoxaparin Sodium 40 MG DAILY 07/31 1000 AC 07/31 SC 0938 Heparin Sodium 5,000 UNIT Q8 07/19 1400 DC 07/30 (Porcine) SC 07/31 0300 2222 Metoprolol Succinate 100 MG DAILY 07/19 1000 AC 07/31 PO 0938 Morphine Sulfate 15 MG BID 07/29 1015 AC 07/31 PO 0938 Ondansetron HCl 4 MG Q6P PRN 07/29 1115 AC 07/29 IV 2311 Ramelteon 8 MG AT BEDTIME 07/30 2200 AC 07/30 PO 222 Senna/Docusate Sodium 2 TAB DAILY PRN 07/25 1100 AC 07/25 PO 2108 Results Pertinent Lab Results: None Today.
[2017-07-31 14:07] VITALS: BP 122/70
[2017-07-31 21:16] VITALS: BP 118/78
[2017-08-01 07:02] VITALS: BP 112/78
--- NOTE | 2017-08-01 08:10 | PN- Housestaff ---
See Addendum Subjective Follow-up For: pancreatitis with pseudocyst Subjective: patient continues to complain of epigastric and right upper quadrant, was also complaining of constipation Review of Systems Constitutional: Reports: see HPI. Objective Last 24 Hrs of Vital Signs/I&O Vital Signs Date Time Temp Pulse Resp B/P B/P Pulse O2 O2 Flow FiO2 Mean Ox Delivery Rate 08/01 0936 106 122/68 08/01 0936 106 122/68 08/01 0702 98.8 104 20 112/78 94 07/31 2116 98.7 105 20 118/78 96 Room Air 07/31 1441 96 Room Air 07/31 1407 98.4 107 20 122/70 95 Room Air Intake & Output 08/01 1600 08/01 0800 08/01 0000 Intake Total 240 450 Output Total 200 1301 Balance -200 240 -851 Intake, Oral 240 450 Output, Stool 1 Output, Urine 200 1300 Physical Exam General Appearance: Alert, Oriented X3, Cooperative, No Acute Distress Cardiovascular: Regular Rate, Normal S1, Normal S2, No Murmurs Lungs: Clear to Auscultation, Normal Air Movement Abdomen: Normal Bowel Sounds, Soft, No Masses, epigastric and RUQ tenderness on palpation, no guarding Extremities: No Clubbing, No Cyanosis, No Tenderness/Swelling, LE edema Current Medications: Current Medications Sig/Anay Start time Last Medication Dose Route Stop Time Status Admin Acetaminophen 975 MG Q8P PRN 07/28 1515 AC 07/31 PO 0152 Albuterol Sulfate 3 ML Q4P PRN 07/29 1145 AC 07/29 INH 1136 Amlodipine Besylate 10 MG DAILY 07/23 1000 AC 08/01 PO 0936 Bisacodyl 10 MG ONCE PRN 07/31 0700 AC 07/31 [place] 0814 Bisacodyl 5 MG DAILY 07/25 1054 AC 08/01 PO 0937 Clonazepam 1 MG 2200 07/24 2200 DC 07/30 PO 07/31 2159 2221 Duloxetine HCl 120 MG DAILY 07/21 1311 AC 08/01 PO 0936 Enoxaparin Sodium 40 MG DAILY 07/31 1000 AC 08/01 SC 0936 Metoprolol Succinate 100 MG DAILY 07/19 1000 AC 08/01 PO 0936 Morphine Sulfate 15 MG BID 07/29 1015 AC 08/01 PO 0936 Ondansetron HCl 4 MG Q6P PRN 07/29 1115 AC 07/31 IV 1726 Ramelteon 8 MG AT BEDTIME 07/30 2199 AC 07/31 PO 2052 Senna/Docusate Sodium 2 TAB DAILY PRN 07/25 1100 AC 07/25 PO 2108 Last 24 Hrs of Lab/Dangelo Results Last 24 Hrs of Labs/Mics: Laboratory Tests 08/01/17 0750: Anion Gap 12, Estimated GFR > 60, BUN/Creatinine Ratio 14.0, CBC w Diff NO MAN DIFF REQ, RBC 3.50 L, MCV 82.7, MCH 27.2, MCHC 32.9 L, RDW 15.4 H, MPV 7.1 L , Gran % 82.1 H, Lymphocytes % 7.2 L, Monocytes % 7.5, Eosinophils % 2.9, Basophils % 0.3, Absolute Granulocytes 11.6 H, Absolute Lymphocytes 1.0 L, Absolute Monocytes 1.1 H, Absolute Eosinophils 0.4, Absolute Basophils 0 Assessment/Plan Assessment: 47 year old female with morbid obesity with PMH of HTN, HLD, anxiety, depression , panic attacks, post AP 1993, hx LLE DVT postop 1993 was on coumadin for a year , Hx of Choledocholithiasis and gallstone pancreatitis s/p laparoscopic cholecystectomy, necrotic pancreatitis (patient was transferred to [facility]), recent admission in [facility] in June 2017 for another episode of acute pancreatitis, who presented complaining of sudden onset epigastric and right upper quadrant abdominal pain. Acute pancreatitis with pseudocyst: CT imaging shows a cystic mass in the pancreatic head and pseudocyst formation. Dr. Adal Thomas has accepted the patient for cyst-gastrostomy on Wednesday. We will transfer the patient to [place] on Wednesday, August 01. -Promethazine -off iv morphine, prn tylenol for pain -MS Contin 15mg BID -Appreciate GI recommendations -Regular diet -Discontinue IV fluids -Transfer to [place] to today for cyst drainage -Continue home medications DVT prophylaxis with enoxaparin Regular diet Full code Problem List: 1. Pseudocyst of pancreas 2. Pancreatitis 3. Morbid obesity Pain Ratin Pain Location: n/a Pain Goal: Pain 4 or less Pain Plan: prn Tomorrow's Labs & Rationales: none, discharge
[2017-08-01 08:25] LABS: ABSOLUTE BASOPHIL COUNT 0 /CUMM (0.0-0.2); ABSOLUTE EOSINOPHIL COUNT 0.4 /CUMM (0.0-0.7); ABSOLUTE GRANULOCYTE CT 11.6 /CUMM (1.4-6.5); ABSOLUTE MONOCYTE COUNT 1.1 /CUMM (0.10-0.60); BASOPHIL % 0.3 % (0.0-2.0); EOSINOPHIL % 2.9 % (0-5); GRANULOCYTE % 82.1 % (42.2-75.2); HEMATOCRIT 28.9 % (37-47); MEAN CORPUSCULAR HGB 27.2 PG (27.0-31.0); MEAN CORPUSCULAR HGB CONC 32.9 G/DL (33.0-37.0); MEAN CORPUSCULAR VOLUME 82.7 FL (81.0-99.0); MEAN PLATELET VOLUME 7.1 FL (7.4-10.4); PLATELET COUNT 598 /CUMM (130-400); RBC DISTRIBUTION WIDTH 15.4 % (11.5-14.5); WHITE BLOOD CELL COUNT 14.2 /CUMM (4.8-10.8)
[2017-08-01 13:02] VITALS: BP 122/68
== END 2017-08-01 13:45 | disposition short-term general hospital (02) | DRG 439 ==
LOC: ERH 12:00 → ERHI 16:57 → 2NB 16:57 → ENRESERV 19:48 → ENTRNSPT 20:24 → 2NB 20:43 → CMPTRNSPT 20:53 → 2NB 07-20 09:58
PROVIDERS: Internal Medicine; Physician Assistant; Student in an Organized Health Care Education/Training Program
DX: K85.90 Acute pancreatitis without necrosis or infection, unspecified (principal); Z68.41 Body mass index [BMI] 40.0-44.9, adult; E87.3 Alkalosis; E46 Unspecified protein-calorie malnutrition; E87.2 Acidosis; K86.3 Pseudocyst of pancreas; E66.01 Morbid (severe) obesity due to excess calories; K80.50 Calculus of bile duct without cholangitis or cholecystitis without obstruction; G47.33 Obstructive sleep apnea (adult) (pediatric); I10 Essential (primary) hypertension; K86.1 Other chronic pancreatitis; E78.5 Hyperlipidemia, unspecified; K86.89 Other specified diseases of pancreas; F32.9 Major depressive disorder, single episode, unspecified; F41.0 Panic disorder [episodic paroxysmal anxiety]; Z86.718 Personal history of other venous thrombosis and embolism; Z79.01 Long term (current) use of anticoagulants; Z90.49 Acquired absence of other specified parts of digestive tract; Z88.2 Allergy status to sulfonamides; Z88.8 Allergy status to other drugs, medicaments and biological substances; R00.0 Tachycardia, unspecified; M54.9 Dorsalgia, unspecified; R63.4 Abnormal weight loss
CPT/HCPCS: 2NBP; 36415; 36592; 71045; 74177; 81001; 82436; 87040; 87086; 87804; 87804-59; 93005; 93010; 96374; 96375; J0131; J1644; J1650; J1885; J1940; J2405; J2550; J3250; J7120; J7508

== ENCOUNTER 2017-09-22 15:41 | Inpatient (IN) | payer OTHER ==
[~2017-09-22] VITALS: Ht 157.5 cm; Wt 104.3 kg
[~2017-09-22 15:41] MED LIST changes: +GABAPENTIN100 M2; +OXYCODONE HCL5 M1 PO; +PANTOPRAZOLE SO40 M1 PO; +PROMETHAZINE HC25 M3 PO; +ZOFRAN4 M2 PO
[2017-09-22 18:44] LABS: ABSOLUTE BASOPHIL COUNT 0 /CUMM (0.0-0.2); ABSOLUTE EOSINOPHIL COUNT 0 /CUMM (0.0-0.7); ABSOLUTE GRANULOCYTE CT 13.4 /CUMM (1.4-6.5); ABSOLUTE MONOCYTE COUNT 0.6 /CUMM (0.10-0.60); BASOPHIL % 0.1 % (0.0-2.0); EOSINOPHIL % 0.3 % (0-5); GRANULOCYTE % 88.8 % (42.2-75.2); HEMATOCRIT 41.5 % (37-47); MEAN CORPUSCULAR VOLUME 81.7 FL (81.0-99.0); MEAN PLATELET VOLUME 8.1 FL (7.4-10.4); PLATELET COUNT 392 /CUMM (130-400); RED BLOOD CELL CT 5.07 /CUMM (4.20-5.40); WHITE BLOOD CELL COUNT 15.1 /CUMM (4.8-10.8)
--- NOTE | 2017-09-22 18:49 | ED GI/GU/ABDOMINAL COMPLAINT ---
History of Present Illness General Chief Complaint: General Adult Stated Complaint: PT SENT HER IN Source: patient Exam Limitations: no limitations Vital Signs & Intake/Output Vital Signs & Intake/Output Vital Signs Date Time Temp Pulse Resp B/P B/P Pulse O2 O2 Flow FiO2 Mean Ox Delivery Rate 09/22 2238 Room Air 09/22 1920 98.1 09/22 1553 98.1 125 18 135/80 99 Room Air Allergies Coded Allergies: Sulfa (Sulfonamide Antibiotics) (Intermediate, RASH 05/21/17) valsartan (From DIOVAN) (RETAIN WATER PER PT 07/18/17) Triage Note: C/O EPIGASTRIC PAIN, NAUSEA AND UNABLE TO EAT SINCE YESTERDAY. PMH: PANCREATITIS. Triage Nurses Notes Reviewed? yes LMP (ages 10-50): unknown ? n Is pt currently ? No Onset: Abrupt Duration: day(s): (3-4), constant, continues in ED, getting worse Timing: recent history Quality/Severity: severe, stabbing Severity Numbers: 9 Location: epigastric Radiation: back Activities at Onset: none Prior Abdominal Problems: similar symptoms Past Sexual History: Unobtainable at this time No Modifying Factors: none Modifying Factors: Worsens With: movement, palpation. Associated Symptoms: abdominal pain HPI: 47-year-old female past medical history of pancreatitis, hypertension, lipidemia presents for evaluation of abdominal pain nausea vomiting and back pain. Patient states that she has had pancreatitis multiple times in the past. She recently on September 06 had pancreatic stents removed at [facility] because she had been doing well. She was in her usual state of health until about 3 days ago she started noticing epigastric pain radiating to her back associated with decreased appetite nausea and multiple doses of vomiting. States that she has not eaten for several days due to the pain. No diarrhea fever chest pain shortness of breath. No sick contacts hematemesis or melena. No recent surgeries. No new medications no alcohol use. (Riki MITCHELL,Elio) Reconcile Medications Amlodipine Besylate 5 MG TABLET 2 TAB PO DAILY BP (Reported) Clonazepam 1 MG TABLET 1 TAB PO BIDP PRN ANXIETY (Reported) Duloxetine HCl 60 MG CAPSULE. 2 CAP PO DAILY MENTAL HEALTH/NERVE PAIN ( Reported) Metoprolol Succinate 100 MG TAB.ER.24H 1 TAB PO DAILY HEART/BP (Reported) Montelukast Sodium 10 MG TABLET 1 TAB PO DAILY ALLERGIES (Reported) Ondansetron HCl (Zofran) 4 MG TABLET 1 TAB PO Q6-8P PRN Nausea . Spironolactone 100 MG TABLET 1 TAB PO DAILY HTN (Reported) Trazodone HCl 50 MG TABLET 1-2 TAB PO QPM SLEEP (Reported) (Sarthak BRUNNER,Luis Antonio Perez) Past History Travel History Traveled to [place] past 21 day No Medical History Any Pertinent Medical History? see below for history Neurological: NONE EENT: Lasik surgery Cardiovascular: hypertension, hyperlipidemia Respiratory: asthma, obstructive sleep apnea Gastrointestinal: pancreatitis Hepatic: ? mild fatty liver Renal: NONE Musculoskeletal: NONE Psychiatric: anxiety, depression, panic attacks Endocrine: obesity Blood Disorders: coagulopathy, DVT (LLE 1993, post AP) Cancer(s): NONE UROLOGY PHYSICIAN/Reproductive: NONE History of MRSA: No History of VRE: No History of CDIFF: No Influenza Vaccine: 03/14/17 Surgical History Surgical History: appendectomy (1993), cholecystectomy (05/26/17: Lap MATEO), LASIC EYE SURGERY Psychosocial History Who do you live with Spouse Services at Home None What is your primary language Indonesian Tobacco Use: Never used ETOH Use: denies use Family History Family History, If Any: FATHER ([employer]). Age 67. MOTHER, , Age 34; Cause: MVA (motor vehicle accident). PGA, , Age 85; Cause: Colon cancer. Relation not specified for: *No pertinent family history Hx Contributory? No (Elio Parisi) Review of Systems Review of Systems Constitutional: Reports: no symptoms. EENTM: Reports: no symptoms. Respiratory: Reports: no symptoms. Cardiovascular: Reports: no symptoms. GI: Reports: see HPI, abdominal pain, nausea, vomiting. Genitourinary: Reports: no symptoms. Musculoskeletal: Reports: no symptoms. Skin: Reports: no symptoms. Neurological/Psychological: Reports: no symptoms. Hematologic/Endocrine: Reports: no symptoms. Immunologic/Allergic: Reports: no symptoms. All Other Systems: Reviewed and Negative (Elio Parisi) Physical Exam Physical Exam General Appearance: well developed/nourished, no apparent distress, alert, awake Head: atraumatic, normal appearance Eyes: Bilateral: normal appearance, PERRL, EOMI. Ears, Nose, Throat, Mouth: hearing grossly normal, moist mucous membrane Neck: normal inspection, supple, full range of motion Respiratory: normal breath sounds, chest non-tender, no respiratory distress, lungs clear Cardiovascular: regular rate/rhythm, normal peripheral pulses Peripheral Pulses: 2+ radial (R), 2+ radial (L) Gastrointestinal: normal bowel sounds, soft, no organomegaly, tenderness ( epigastric ) Back: normal inspection, normal range of motion, no vertebral tenderness Extremities: normal range of motion Neurologic/Psych: no motor/sensory deficits, awake, alert, oriented x 3, normal gait Skin: intact, normal color, warm/dry Core Measures ACS in differential dx? No Sepsis Present: No Sepsis Focused Exam Completed? No (Riki MITCHELL,Elio) Progress Differential Diagnosis: AAA, appendicitis, biliary colic, bowel obstruction, cholecystitis, diverticulitis, gastritis, hepatitis, hernia, ischemic bowel, inflamm bowel dis, intrauterine , kidney stone, pancreatitis, peptic ulcer, PUD/GERD, SBO, UTI/pyelo Plan of Care: Orders Procedure Date/time Status Nothing by Mouth 09/23 B Active HEPATIC FUNCTION PANEL 09/23 06 Active CBC WITHOUT DIFFERENTIAL 09/23 0600 Active BASIC ELECTROLYTES PLUS BUN&CR 09/23 06 Active Pathway - chart 09/22 2255 Active Code Status 09/22 2255 Active Add-on Test (ER Only) 09/22 2249 Active Saline Lock 09/22 2206 Active Misc Message 09/22 2206 Active ED Holding Orders 09/22 2206 Active Admit to inpatient 09/22 220 Active Vital Signs 09/22 2206 Active Code Status 09/22 220 Complete Patient Data 09/22 2129 Active Intake & Output 09/22 2040 Active LACTIC ACID 09/22 2033 Active PHOSPHORUS 09/22 1810 Complete MAGNESIUM 09/22 1810 Complete EKG 09/22 1801 Active URINALYSIS 09/22 1733 Active TROPONIN LEVEL 09/22 1733 Complete LIPASE 09/22 1733 Complete LACTIC ACID 09/22 1733 Complete COMPREHENSIVE METABOLIC PANEL 09/22 1733 Complete CBC WITHOUT DIFFERENTIAL 09/22 1733 Complete House Staff 09/22 UNK Active VTE Mechanical Prophylaxis 09/22 UNK Active Current Medications Sig/Anay Start time Last Medication Dose Stop Time Status Admin Heparin Sodium 5,000 UNIT Q8 09/23 0600 AC (Porcine) Lactated Ringer's 1,000 ML Q8H 09/22 2300 AC (Lactated Ringers) 04/13 0659 Morphine Sulfate 2 MG Q4P PRN 09/22 230 AC (MORPHINE SULFATE) Laboratory Tests 09/22/17 1810: Anion Gap 18 H, Estimated GFR > 60, BUN/Creatinine Ratio 20.0, Glucose 102 H, Lactic Acid 1.2, Calcium 9.8, Phosphorus 3.6, Magnesium 1.7, Total Bilirubin 1.6 H, AST 18, ALT 19, Alkaline Phosphatase 82, Troponin I < 0.01, Total Protein 6.9, Albumin 3.9, Globulin 3.0, Albumin/Globulin Ratio 1.3, Lipase 2515 H, CBC w Diff NO MAN DIFF REQ, RBC 5.07, MCV 81.7, MCH 27.0, MCHC 33.0, RDW 17.0 H, MPV 8.1, Gran % 88.8 H, Lymphocytes % 6.6 L, Monocytes % 4.2, Eosinophils % 0.3, Basophils % 0.1, Absolute Granulocytes 13.4 H, Absolute Lymphocytes 1.0 L , Absolute Monocytes 0.6, Absolute Eosinophils 0, Absolute Basophils 0 Patient seen and evaluated. She is history of acute pancreatitis treated at [facility] with stents. The stents removed on September 06. She had been doing well until 3 days ago. She has epigastric pain nausea vomiting and back pain. No fevers. Labs were obtained and show a white blood count of 15,000 and a lipase greater 2500. Patient is nauseous she is vomiting. For IV fluids IV Zofran IV Phenergan and IV morphine were required to control her symptoms. Spoke with Dr. Schumacher recommended patient should be seen at [facility] since she has been evaluated there in the past and recently in the stents removed her patient refuses transfer to [facility] because of previous bad experiences there. States that she refuses to be transferred. Patient will be admitted here for symptomatic treatment, IV fluids, IV antiemetics, IV pain meds, MRCP, GI consult case discussed with Dr. De León he agrees Diagnostic Imaging: Viewed by Me: CT Scan. Discussed w/RAD: CT Scan. Radiology Impression: PATIENT: CR VASQUEZ PRESENT AGE: 47 PATIENT ACCOUNT NO: [id number] : 72 LOCATION: [facility] ORDERING PHYSICIAN: Elio MITCHELL SERVICE DATE: 09/22/17-1800 EXAM TYPE: CAT - CT ABD & PELVIS W IV CONTRAST EXAMINATION: CT ABDOMEN AND PELVIS WITH CONTRAST CLINICAL INFORMATION: 47-year-old female patient with right upper quadrant and epigastric pain, nausea, and vomiting. Fever. Presumptive diagnoses: Pancreatitis, cholangitis. COMPARISON: CT exams of the abdomen on 05/21/2017, , 06/15/2017, and 07/18/2017. (Complications of pancreatitis). TECHNIQUE: Multidetector volumetric imaging was performed of the abdomen and pelvis following IV administration of 94 mL of Optiray 320 intravenous contrast. Sagittal and coronal reformatted images were obtained on the technologist's workstation. DLP: 924 mGy-cm FINDINGS: Middleware Consultant: The patient's gallbladder has been surgically removed. The abdominal gas pattern is normal. LUNG BASES: A small left pleural effusion is seen which has increased in volume since 07/18/2017. LIVER, GALLBLADDER, AND BILIARY TREE: Normal. The gallbladder has been removed. The common bile duct measures 9 mm in the distal portion. PANCREAS: The body and tail of the pancreas have returned to normal size. However, the pancreatic duct measures 7 mm in the pancreatic body. There is fat stranding surrounding the head of the pancreas. The pseudocyst diagnosed in June and July has resolved. There are still signs of pancreatitis with effusions located at the mesenteric root and inflammatory reaction in the right anterior pararenal space. There is considerable inflammatory reaction in the lesser sac. A small amount of ascites is present in the cul-de-sac. SPLEEN: Unremarkable. ADRENAL GLANDS: Unremarkable. KIDNEYS AND URETERS: The kidneys are normal in size, shape, and attenuation. No hydronephrosis, hydroureter, or calculi seen. No perinephric stranding. A 2.8 cm cyst arises from the upper pole of the left kidney. BLADDER: Unremarkable. GASTROINTESTINAL TRACT: The small and large bowel are unremarkable. The appendix is unremarkable. ABDOMINAL WALL: No significant hernia is appreciated. LYMPH NODES: Normal. VASCULAR: No venous thrombosis. No unusual focal cluster of varices are seen adjacent to the distal aorta proximal to the bifurcation. The significance of this is uncertain. Series 602, image 67. Series 2, image 45. PELVIC VISCERA: Unremarkable. OSSEOUS STRUCTURES: Unremarkable. IMPRESSION: 1. Continued signs of pancreatitis with peripancreatic effusions and peripancreatic stranding. Dilated pancreatic duct. 2. Resolution of the pseudocyst. 3. Considerable inflammatory reaction in the lesser sac. DICTATED BY: Petr Marie MD DATE/TIME DICTATED:09/22/171958 MEDICAL RECORDS TECHNICIAN:KIMBERLY DATE/TIME TRANSCRIBED:09/22/171958 CONFIDENTIAL, DO NOT COPY WITHOUT APPROPRIATE AUTHORIZATION. <Electronically signed in Other Vendor System> SIGNED BY: Petr Marie MD 09/22/172026 Initial ED EKG: no ST T wave changes, SINUSU TACH 103 (Elio Parisi) Departure Departure Disposition: STILL A PATIENT Condition: Stable Clinical Impression Primary Impression: Acute pancreatitis Qualifiers: Pancreatitis type: unspecified pancreatitis type Acute pancreatitis complication: unspecified Qualified Code: K85.90 - Acute pancreatitis without necrosis or infection, unspecified Referrals: Bienvenido Casarez MD (PCP/Family) Departure Forms: Customer Survey General Discharge Information Admission Note Spoke With: Janene Marin MD Documentation of Exam: Documentation of any treatments & extenuating circumstances including Concerns Regarding Discharge (functional status, medication knowledge or non-compliance, living conditions, etc.) that warrant an admission rather than observation: [IV fluids, IV antiemetics, nothing by mouth, IV pain meds, GI consult, serial labs, MRCP] (Elio Parisi) PA/SUPERVISOR SLATE SPLITTING Co-Sign Statement Statement: ED Attending supervision documentation- [x] I saw and evaluated the patient. I have also reviewed all the pertinent lab results and diagnostic results. I agree with the findings and the plan of care as documented in the PA's/SUPERVISOR SLATE SPLITTING's documentation. 09/22/17, 20:45... pt with pancreatitis.... mid epigastric tenderness.... pt merits admission for iv fluids, parenteral pain meds. [] I have reviewed the ED Record and agree with the PA's/SUPERVISOR SLATE SPLITTING's documentation. [] Additions or exceptions (if any) to the PAs/SUPERVISOR SLATE SPLITTING's note and plan are summarized below: [] (Sarthak BRUNNER,Luis Antonio Perez)
--- NOTE | 2017-09-22 20:27 | CT SCAN REPORT ---
EXAMINATION: CT ABDOMEN AND PELVIS WITH CONTRAST CLINICAL INFORMATION: 47-year-old female patient with right upper quadrant and epigastric pain, nausea, and vomiting. Fever. Presumptive diagnoses: Pancreatitis, cholangitis. COMPARISON: CT exams of the abdomen on 05/21/2017, 06/09/2017, 06/15/2017, and 07/18/2017. (Complications of pancreatitis). TECHNIQUE: Multidetector volumetric imaging was performed of the abdomen and pelvis following IV administration of 94 mL of Optiray 320 intravenous contrast. Sagittal and coronal reformatted images were obtained on the technologist's workstation. DLP: 924 mGy-cm FINDINGS: Edger Machine Operator: The patient's gallbladder has been surgically removed. The abdominal gas pattern is normal. LUNG BASES: A small left pleural effusion is seen which has increased in volume since 07/18/2017. LIVER, GALLBLADDER, AND BILIARY TREE: Normal. The gallbladder has been removed. The common bile duct measures 9 mm in the distal portion. PANCREAS: The body and tail of the pancreas have returned to normal size. However, the pancreatic duct measures 7 mm in the pancreatic body. There is fat stranding surrounding the head of the pancreas. The pseudocyst diagnosed in June and July has resolved. There are still signs of pancreatitis with effusions located at the mesenteric root and inflammatory reaction in the right anterior pararenal space. There is considerable inflammatory reaction in the lesser sac. A small amount of ascites is present in the cul-de-sac. SPLEEN: Unremarkable. ADRENAL GLANDS: Unremarkable. KIDNEYS AND URETERS: The kidneys are normal in size, shape, and attenuation. No hydronephrosis, hydroureter, or calculi seen. No perinephric stranding. A 2.8 cm cyst arises from the upper pole of the left kidney. BLADDER: Unremarkable. GASTROINTESTINAL TRACT: The small and large bowel are unremarkable. The appendix is unremarkable. ABDOMINAL WALL: No significant hernia is appreciated. LYMPH NODES: Normal. VASCULAR: No venous thrombosis. No unusual focal cluster of varices are seen adjacent to the distal aorta proximal to the bifurcation. The significance of this is uncertain. Series 602, image 67. Series 2, image 45. PELVIC VISCERA: Unremarkable. OSSEOUS STRUCTURES: Unremarkable. IMPRESSION: 1. Continued signs of pancreatitis with peripancreatic effusions and peripancreatic stranding. Dilated pancreatic duct. 2. Resolution of the pseudocyst. 3. Considerable inflammatory reaction in the lesser sac.
[2017-09-22] MEDS ORDERED: SPIRONOLACTONE100 M1 PO (20:41)
--- NOTE | 2017-09-22 22:03 | History & Physical ---
Leyla Zuniga 09/22/17 2203: General Information and HPI History of Present Illness: Ms. Kwok is a 47 years old woman with PMH of asthma, HTN, HLD, anxiety, depression, panic attacks, DVT postop (1993), choledocholithiasis, gallstone pancreatitis s/p laparoscopic cholecystectomy, and necrotic pancreatitis, pseudocyst s/p stent placement who presents to the ED with abdominal discomfort for 1 day. Patient reports she felt bloated yesterday morning followed by abdominal soreness while eating her breakfast which prompted her to stop eating. The discomfort persisted accompanied by nausea. She also reports that her abdominal pain is exacerbated by deep inspiration. On a follow-up visit regarding her pseudocyst in August she was told she can eat whatever she likes and recalls that over the weekend she had red meat, nino and 1/2 shot glass of alcohol. She has had cold sweats for the past 2 days along with no bowel movement. She denies fever, chills, SOB, CP, acid reflux, urinary symptoms Allergies/Medications Allergies: Coded Allergies: Sulfa (Sulfonamide Antibiotics) (Intermediate, RASH 05/21/17) valsartan (From DIOVAN) (RETAIN WATER PER PT 07/18/17) Home Med list Amlodipine Besylate 5 MG TABLET 2 TAB PO DAILY BP (Reported) Clonazepam 1 MG TABLET 1 TAB PO BIDP PRN ANXIETY (Reported) Duloxetine HCl 60 MG CAPSULE.DR 2 CAP PO DAILY MENTAL HEALTH/NERVE PAIN ( Reported) Metoprolol Succinate 100 MG TAB.ER.24H 1 TAB PO DAILY HEART/BP (Reported) Montelukast Sodium 10 MG TABLET 1 TAB PO DAILY ALLERGIES (Reported) Ondansetron HCl (Zofran) 4 MG TABLET 1 TAB PO Q6-8P PRN Nausea . Spironolactone 100 MG TABLET 1 TAB PO DAILY HTN (Reported) Trazodone HCl 50 MG TABLET 1-2 TAB PO QPM SLEEP (Reported) Past History Travel History Traveled to [place] past 21 day No Medical History Neurological: NONE EENT: Lasik surgery Cardiovascular: hypertension, hyperlipidemia Respiratory: asthma, obstructive sleep apnea Gastrointestinal: pancreatitis Hepatic: ? mild fatty liver Renal: NONE Musculoskeletal: NONE Psychiatric: anxiety, depression, panic attacks Endocrine: obesity Blood Disorders: coagulopathy, DVT (LLE 1993, post AP) Cancer(s): NONE PSYCHOLOGIST RESEARCH ASSISTANT/Reproductive: NONE History of MRSA: No History of VRE: No History of CDIFF: No Influenza Vaccine: 03/14/17 Surgical History Surgical History: appendectomy (1993), cholecystectomy (05/26/17: Lap CCK), LASIC EYE SURGERY Past Family/Social History Family History Relations & Conditions if any FATHER ([employer]). Age 67. MOTHER, , Age 34; Cause: MVA (motor vehicle accident). PGA, , Age 85; Cause: Colon cancer. Relation not specified for: *No pertinent family history Psychosocial History Who Do You Live With? spouse Services at Home: None Primary Language: Marshallese ETOH Use: denies use Living Will? yes Power of Professor Of Management/HCP? no Functional Ability ADLs Independent: dressing, eating, toileting, bathing. Ambulation: independent IADLs Independent: shopping, housework, finances, food prep, telephone, transportation , medication admin. Review of Systems Review of Systems Constitutional: Reports: see HPI. Exam & Diagnostic Data Last 24 Hrs of Vital Signs/I&O Vital Signs Date Time Temp Pulse Resp B/P B/P Pulse O2 O2 Flow FiO2 Mean Ox Delivery Rate 09/225 98.2 93 18 122/60 96 Room Air 09/22 2238 Room Air 09/22 1920 98.1 09/22 1553 98.1 125 18 135/80 99 Room Air Intake & Output 09/23 0800 09/23 0000 09/22 1600 Intake Total 1100 Output Total Balance 1100 Intake, IV 1100 Patient 230 lb Weight Weight Reported by Patient Measurement Method Physical Exam General Appearance Alert, Oriented X3, Cooperative, No Acute Distress HEENT Atraumatic, PERRLA, EOMI, Mucous Membr. moist/pink Neck Supple, No LAD Cardiovascular Regular Rate, Normal S1, Normal S2 Lungs Clear to Auscultation, Normal Air Movement Abdomen Normal Bowel Sounds, Soft, No Tenderness Extremities No Edema Last 24 Hrs of Labs/Dangelo: Laboratory Tests 09/23/17 0005: Urine Color YEL, Urine Clarity CLEAR, Urine pH 6.0, Ur Specific [place] 1.015, Urine Protein NEG, Urine Ketones 40 H, Urine Nitrite NEG, Urine Bilirubin NEG@ ICTO, Urine Urobilinogen 0.2, Ur Leukocyte Esterase NEG, Ur Microscopic EXAM NOT REQUIRED, Urine Hemoglobin NEG, Urine Glucose NEG 09/22/173: Lactic Acid Cancelled 09/22/17 1810: Anion Gap 18 H, Estimated GFR > 60, BUN/Creatinine Ratio 20.0, Glucose 102 H, Lactic Acid 1.2, Calcium 9.8, Phosphorus 3.6, Magnesium 1.7, Total Bilirubin 1.6 H, AST 18, ALT 19, Alkaline Phosphatase 82, Troponin I < 0.01, Total Protein 6.9, Albumin 3.9, Globulin 3.0, Albumin/Globulin Ratio 1.3, Lipase 2515 H, CBC w Diff NO MAN DIFF REQ, RBC 5.07, MCV 81.7, MCH 27.0, MCHC 33.0, RDW 17.0 H, MPV 8.1, Gran % 88.8 H, Lymphocytes % 6.6 L, Monocytes % 4.2, Eosinophils % 0.3, Basophils % 0.1, Absolute Granulocytes 13.4 H, Absolute Lymphocytes 1.0 L , Absolute Monocytes 0.6, Absolute Eosinophils 0, Absolute Basophils 0 Diagnostic Data EKG Results NS, HR 101, QTc [address] ABD & PELVIS W IV CONTRAST IMPRESSION: 1. Continued signs of pancreatitis with peripancreatic effusions and peripancreatic stranding. Dilated pancreatic duct. 2. Resolution of the pseudocyst. 3. Considerable inflammatory reaction in the lesser sac Assessment/Plan Assessment: Ms. Kwok is a 47 years old woman with PMH of asthma, HTN, HLD, anxiety, depression, panic attacks, DVT postop (1993), choledocholithiasis, gallstone pancreatitis s/p laparoscopic cholecystectomy, and necrotic pancreatitis, pseudocyst s/p stent placement who presents to the ED with abdominal discomfort for 1 day. Problem list: Acute pancreatitis - may be secondary to recent alcohol use Plan: Admit to general med floor further evaluation and management LR @ 200cc/hr IV Promethazine for nausea Abdominal US for abdominal pain LFT Consider lipid panel Pain: IV morphine 2 mg when necessary GI consult Diet: Nothing by mouth Code: Full As Ranked By This Provider Problem List: 1. Acute pancreatitis Qualifiers Pancreatitis type: unspecified pancreatitis type Acute pancreatitis complication: unspecified Qualified Code: K85.90 - Acute pancreatitis without necrosis or infection, unspecified Core Measures/Misc (02/28) Acute Coronary Syndrome ACS Diagnosis: No Congestive Heart Failure Congestive Heart Failure Diagnosis No Cerebrovascular Accident CVA/TIA Diagnosis: No VTE (View Protocol) VTE Risk Factors Age>40 No Mechanical VTE Prophylaxis d/t N/A MechProphylax Ordered No VTE Pharm Prophylaxis d/t NA PharmProphylax ordered Sepsis (View protocol) Sepsis Present: No Gibran Castro 09/23/17 0057: Resident Review Statement Resident Statement: examined this patient, discussed with audit intern, agreed with audit intern, reviewed images, amended to note Other Findings: 47 y/o morbid obesity woman HTN, HLD, anxiety, depression, panic attacks, post AP 1993, hx LLE DVT postop 1993 was on coumadin for a year, Hx of Choledocholithiasis and gallstone pancreatitis s/p laparoscopic cholecystectomy, necrotic pancreatitis (patient was transferred to [facility]), 2 recent admissions for pancreatitis and pancreatic pseudocyst which the last one resulted to transfer to [facility] and put in-stent to resolve the pseudocyst came back with chief complaint of abdominal pain and nausea for 2 days. Patient reported that the pancreatic pseducyst stent? Was removed September 06 and she had couple of days of abdominal pain post removal which was controlled with Percocet. Patient reported that she was cautious with the diet and just had one episode of eating meat and drinking wine couple of days ago. The abdominal pain and nausea a started 2 days ago and patient is unable to take any solids but able to take liquids and hold down medications sometimes. She did not have any bowel movements for 2 days and reports cold sweats but no fevers, chest pain, dizziness, headache. vitals in ED was notable for heart of 125 daily to reduce to 93 with a stable blood pressure, no fever Alert and oriented 3 Skin No Rashes, No Breakdown, No Significant Lesion HEENT Atraumatic, PERRLA, EOMI Neck Supple, No JVD, No thryomegaly Cardiovascular Regular Rate, Normal S1, Normal S2 Lungs Clear to Auscultation, Normal Air Movement Abdomen Normal Bowel Sounds, Soft, generalized abdominal pain with no guarding Extremities No Clubbing, No Cyanosis, No Edema,Normal Pulses WBC 15.1, hemoglobin 13.7, lipase was 2500, anion gap 18, HCO3 18, Bilirubin 1.6 CT of the abdomen IMPRESSION: 1. Continued signs of pancreatitis with peripancreatic effusions and peripancreatic stranding. Dilated pancreatic duct. 2. Resolution of the pseudocyst. 3. Considerable inflammatory reaction in the lesser sac. CXR unremarkable EKG showed sinus tachycardia 101, no acute ST-T changes, QTC 436 Assessment Complicated history of gallstone pancreatitis with hepatitis pseudocyst requiring stent with new onset of pancreatitis History of depression and anxiety History of hypertension History of remote DVT Plan Admit to general floor 200 mL/h RL for 2 bags and reassess Continue blood pressure medication of metoprolol and amlodipine and hold aldactone Check CRP today and tomorrow (risk calculation) Continue Klonopin IV morphine for pain and IV Phenergan for nausea PRN GI consultation in the morning iv pepcid bid for 4 doses NPO Limited R UQ ultrasound LFTs in the morning Hold other unnecessary medications for now Full code, DVT prophylaxis mechanical and subcutaneous heparin, NPO, morphine when necessary for pain Janene Marin 09/23/17 0532: Attending MD Review Statement Attending Statement Attending MD Statement: examined this patient, discuss w/resident/PA/EQUAL OPPORTUNITY SPECIALIST, agreed w/resident/PA/EQUAL OPPORTUNITY SPECIALIST, reviewed EMR data (avail), reviewed images, amended to note Attending Assessment/Plan: CC: Abdominal pain PMH: HTN, anxiety, depression, dyslipidemia, remote history of DVT in left lower extremity, was diagnosed to have clotting abnormality currently not on anticoagulation, recurrent pancreatitis secondary to gall stone s/p cholecystectomy, complicated by pseudocyst Patient was transferred to [facility] in her previous hospitalization for Cyst Gastrostomy. Procedure was uncomplicated and he shouldn't was pain-free for all this while. She was not taking any pain medications at home. She followed up with them for removal of stent on September 06, which was uneventful. Even after the procedure patient was pain-free. Over the weekend she had big meal with her friends and alcohol. Yesterday she started to notice epigastric discomfort which progressively worsened to pain, associated with nausea but no vomiting she came to ER. Does not have fever, chills, flulike symptoms, urinary symptoms, cough or expectoration, respiratory difficulty. Vitals: Afebrile, pulse 125, RR 18, blood pressure 135/80, saturating 99% on room air. On exam: A O 3, cooperative, no acute distress, neck supple, JVD normal, no lymphadenopathy, mucosa dry, no focal neurological deficit, no dependent edema, no obvious skin rashes or inflammation CVS: S1-S2, RRR. RS: Clear to auscultate bilaterally. Abdomen: Soft, tender, no guarding or rigidity, Damon's could not be elicited, ND, bowel sounds present. CT abdomen and pelvis with IV contrast: 1. Continued signs of pancreatitis with peripancreatic effusions and peripancreatic stranding. Dilated pancreatic duct. 2. Resolution of the pseudocyst. 3. Considerable inflammatory reaction in the lesser sac CXR: No acute cardiopulmonary process Assessment and plan 47-year-old female with past medical history significant for HTN, anxiety, depression, dyslipidemia, remote history of DVT in left lower extremity, was diagnosed to have clotting abnormality currently not on anticoagulation, recurrent pancreatitis secondary to gall stone s/p cholecystectomy, complicated by pseudocyst, was discharged to [facility] for Cyst Gastrostomy. She was not taking any pain medications at home and was feeling much better. She followed up with them for removal of stent on September 06, which was uneventful. She started to notice abdominal pain again yesterday, similar to her previous pancreatitis episode so she came to ER. She is tender on palpation but no guarding or rigidity, Damon's sign could not be elicited because of pain, She has elevated lipase of 2515, LFT unremarkable, bilirubin 1.6, mild leukocytosis which appears reactive. She has acute recurrent pancreatitis. Repeat CT scan shows resolution of pseudocyst. + Acute recurrent pancreatitis + Reactive leukocytosis - Admit to general medicine - Continue aggressive hydration with lactated Ringer 200 mL per hour for 2 L - Check right upper quadrant ultrasound - check CRP for 3 days as prognostic indicator - Adequate pain control - Nothing by mouth - Check LFT with all the labs in a.m. - Gastroenterology consult - Continue her oral antihypertensives - DVT prophylaxis
--- NOTE | 2017-09-22 22:55 | RADIOLOGY REPORT ---
EXAMINATION: XR PORTABLE CHEST CLINICAL INFORMATION: Pleural effusion on CT. COMPARISON: Chest x-ray 07/28/2017. CT abdomen pelvis 09/22/2017 TECHNIQUE: Portable frontal view of the chest was obtained. 10:33 PM FINDINGS: Small left pleural effusion at the posterior costophrenic angle on the CT of the abdomen and pelvis is not apparent on this portable chest x-ray. Lungs are clear. The cardiac and the mediastinal contours are normal. There is no pulmonary vascular congestion. IMPRESSION: Normal chest.
--- NOTE | 2017-09-23 05:33 | Admission Certification ---
Admission Certification Certification Statement - As attending physician, I certify that at the time of - admission, based on clinical presentation, severity of - symptoms, need for further diagnostic testing and - therapeutic interventions, and risk of adverse outcomes - without in-hospital treatment, in my clinical assessment, - this patient requires an acute hospital stay for a minimum - of two nights or longer. I have also considered psychsocial - factors such as support system, advanced age, financial - issues, cognitive issues, and failed out-patient treatments, - past re-admission history, safety of patient, and lack of - compliance as applicable. Specific rationale supporting this admission is: Acute pancreatitis
[2017-09-23 05:54] LABS: ABSOLUTE EOSINOPHIL COUNT 0.2 /CUMM (0.0-0.7); ABSOLUTE LYMPH COUNT 1.1 /CUMM (1.2-3.4); ABSOLUTE MONOCYTE COUNT 0.6 /CUMM (0.10-0.60); MEAN CORPUSCULAR HGB CONC 32.4 G/DL (33.0-37.0); MEAN PLATELET VOLUME 7.7 FL (7.4-10.4); PLATELET COUNT 238 /CUMM (130-400); RED BLOOD CELL CT 4.08 /CUMM (4.20-5.40)
[2017-09-23 06:07] LABS: ABSOLUTE BASOPHIL COUNT 0 /CUMM (0.0-0.2); ABSOLUTE GRANULOCYTE CT 6.8 /CUMM (1.4-6.5); BASOPHIL % 0.3 % (0.0-2.0); EOSINOPHIL % 2.5 % (0-5); GRANULOCYTE % 77.1 % (42.2-75.2); MEAN CORPUSCULAR HGB 27.1 PG (27.0-31.0); MEAN CORPUSCULAR VOLUME 83.8 FL (81.0-99.0); WHITE BLOOD CELL COUNT 8.8 /CUMM (4.8-10.8)
[2017-09-23 06:08] LABS: HEMATOCRIT 34.2 % (37-47)
--- NOTE | 2017-09-23 09:04 | PN- Housestaff ---
Elroy BRUNNER,Irma 09/23/17 0904: Subjective Follow-up For: Recurrent pancreatitis Subjective: Patient seen and examined. Resting comfortably. Does not offer any complaint. Other than epigastric tenderness. Patient states that her pain is being controlled. Initially was very nauseous on arrival but now the nausea has resolved. Denies any fevers chills or episode of vomiting. Review of Systems Constitutional: Reports: see HPI. Objective Last 24 Hrs of Vital Signs/I&O Vital Signs Date Time Temp Pulse Resp B/P B/P Pulse O2 O2 Flow FiO2 Mean Ox Delivery Rate 09/23 1000 131/70 09/23 1000 131/70 09/23 0549 97.9 75 18 104/54 99 09/22 2245 98.2 93 18 122/60 96 Room Air 09/22 2238 Room Air 09/22 1920 98.1 09/22 1553 98.1 125 18 135/80 99 Room Air Intake & Output 09/23 1600 09/23 0800 09/23 0000 Intake Total 1100 Output Total Balance 1100 Intake, IV 1100 Physical Exam General Appearance: Alert, Oriented X3, Cooperative, No Acute Distress Lungs: Clear to Auscultation Abdomen: epigastric tenderness Neurological: Normal Speech Extremities: No Edema Current Medications: Current Medications Sig/Anay Start time Last Medication Dose Route Stop Time Status Admin Acetaminophen 0 .STK-MED ONE 09/22 1917 DC IV Acetaminophen 1,000 MG ONCE ONE 09/22 1900 DC 09/22 N/A 1 UNIT IV 09/22 1913 1920 Amlodipine Besylate 10 MG 0900 09/23 0900 AC 09/23 PO 1000 Clonazepam 1 MG BID PRN 09/23 1000 AC PO 09/30 0959 Famotidine 0 .STK-MED ONE 09/23 0533 DC IV Famotidine 20 MG BID 09/23 0400 AC 09/23 IV 09/24 1001 1000 Heparin Sodium 0 .STK-MED ONE 09/23 1314 DC (Porcine) .ROUTE Heparin Sodium 5,000 UNIT Q8 09/23 0600 AC 09/23 (Porcine) SC 1312 Heparin Sodium 0 .STK-MED ONE 09/23 0532 DC (Porcine) .ROUTE Lactated Ringer's 1,000 ML CONTINOUS INFUSION 09/23 2300 AC 09/23 IV 09/25 0359 0135 Lactated Ringer's 1,000 ML Q8H 09/22 2300 DC 09/23 IV 09/24 0659 0135 Metoprolol Succinate 100 MG 0900 09/23 0900 AC 09/23 PO 1000 Morphine Sulfate 0 .STK-MED ONE 09/23 1305 DC .ROUTE Morphine Sulfate 0 .STK-MED ONE 09/23 0956 DC .ROUTE Morphine Sulfate 0 .STK-MED ONE 09/23 0552 DC .ROUTE Morphine Sulfate 2 MG Q4P PRN 09/22 2300 AC 09/23 IV 1303 Morphine Sulfate 0 .STK-MED ONE 09/22 2058 DC .ROUTE Morphine Sulfate 4 MG ONCE ONE 09/22 204 DC 09/22 IV 09/22 Ondansetron HCl 0 .STK-MED ONE 09/22 182 DC .ROUTE Ondansetron HCl 4 MG ONCE ONE 09/22 1800 DC 09/22 IV 09/22 180 182 Promethazine HCl 25 MG Q6P PRN 09/22 2345 AC IV 09/29 234 Promethazine HCl 0 .STK-MED ONE 09/22 2114 DC .ROUTE Promethazine HCl 25 MG ONCE ONE 09/22 2100 DC 09/22 IV 09/22 2100 211 Sodium Chloride 1,000 ML BOLUS ONE 09/22 1800 DC 09/22 IV 09/22 1859 1826 Last 24 Hrs of Lab/Dangelo Results Last 24 Hrs of Labs/Mics: Laboratory Tests 09/23/17 0545: CBC w Diff NO MAN DIFF REQ, RBC 4.08 L, MCV 83.8, MCH 27.1, MCHC 32.4 L, RDW 18.0 H, MPV 7.7, Gran % 77.1 H, Lymphocytes % 12.9 L, Monocytes % 7.2, Eosinophils % 2.5, Basophils % 0.3, Absolute Granulocytes 6.8 H, Absolute Lymphocytes 1.1 L, Absolute Monocytes 0.6, Absolute Eosinophils 0.2, Absolute Basophils 0 09/23/17 0005: Urine Color YEL, Urine Clarity CLEAR, Urine pH 6.0, Ur Specific [place] 1.015, Urine Protein NEG, Urine Ketones 40 H, Urine Nitrite NEG, Urine Bilirubin NEG@ ICTO, Urine Urobilinogen 0.2, Ur Leukocyte Esterase NEG, Ur Microscopic EXAM NOT REQUIRED, Urine Hemoglobin NEG, Urine Glucose NEG 09/22/172032: Lactic Acid Cancelled 09/22/17 1810: Anion Gap 18 H, Estimated GFR > 60, BUN/Creatinine Ratio 20.0, Glucose 102 H, Lactic Acid 1.2, Calcium 9.8, Phosphorus 3.6, Magnesium 1.7, Total Bilirubin 1.6 H, AST 18, ALT 19, Alkaline Phosphatase 82, Troponin I < 0.01, Total Protein 6.9, Albumin 3.9, Globulin 3.0, Albumin/Globulin Ratio 1.3, Lipase 2515 H, CBC w Diff NO MAN DIFF REQ, RBC 5.07, MCV 81.7, MCH 27.0, MCHC 33.0, RDW 17.0 H, MPV 8.1, Gran % 88.8 H, Lymphocytes % 6.6 L, Monocytes % 4.2, Eosinophils % 0.3, Basophils % 0.1, Absolute Granulocytes 13.4 H, Absolute Lymphocytes 1.0 L , Absolute Monocytes 0.6, Absolute Eosinophils 0, Absolute Basophils 0 Assessment/Plan Assessment: Ms. Kwok is a 47 years old woman with PMH of asthma, HTN, HLD, anxiety, depression, panic attacks, DVT postop (1993), choledocholithiasis, gallstone pancreatitis s/p laparoscopic cholecystectomy, and necrotic pancreatitis, pseudocyst s/p stent placement who presented to the ED with abdominal discomfort The patient was being treated and evaluated for following conditions #Acute recurrent pancreatitis Patient presentation ,elevated lipase and imaging finding are consistent with acute recurrent pancreatitis.The trigger of her current bout of pancreatitis is unknown. she reports consuming high fat meal -Nothing by mouth -Continue on IV hydration with ringer lactate -Adequate analgesia -RUQ pending -CRP for 3 days -GI consult placed #Reactive leukocytosis -Resolved #History of hypertension -Continue her home antihypertensives amlodipine, metoprolol #Drop in H/H Likely dilution because of her cell lines are now -Continue to monitor #DVT prophylaxis with Lovenox/full code/nothing by mouth Problem List: 1. Acute pancreatitis Pain Ratin Pain Location: epigastric Pain Goal: Pain 4 or less Pain Plan: prn Tomorrow's Labs & Rationales: cbc bep crp Ramy Esteban MD 09/23/17 1244: Attending MD Review Statement Attending Statement Attending MD Statement: examined this patient, discuss w/resident/PA/WORKPLACE TRAINER AND ASSESSOR, agreed w/resident/PA/WORKPLACE TRAINER AND ASSESSOR, reviewed EMR data (avail), discussed with nursing, discussed with case mgmt, amended to note Attending Assessment/Plan: Patient seen and examined. She is well-known to the medical service from previous admissions. She is currently lying comfortably in bed. She continues to complain of abdominal pain but admits that it has improved. Denies nausea vomiting. She is afebrile and hemodynamically stable. On examination abdomen is obese but nondistended, soft, mild tenderness in the epigastric region with no rebound or guarding. Bowel sounds are normal. The trigger of her current bout of pancreatitis is unknown. She did engage in alcohol use prior to the episode but according to her report it was a very small amount of liquor. She also did admit to engaging in the high fat meal. Recommendations: -Keep n.p.o. -Continue aggressive hydration. -GI consultation. -Continue current analgesic regimen. -Mobilize patient as tolerated.
[2017-09-23 14:45] VITALS: BP 115/70
--- NOTE | 2017-09-23 16:13 | ULTRASOUND REPORT ---
EXAMINATION: US ABDOMEN LIMITED CLINICAL INFORMATION: Assess liver and pancreas for pathology. Presumptive diagnosis of pancreatitis. COMPARISON: CT scan of the abdomen and pelvis dated 09/22/2017 and MRI scan of the abdomen dated 08/20/2017. TECHNIQUE: Real-time imaging of the right upper quadrant abdominal viscera. FINDINGS: PANCREAS: The pancreatic body and tail are well visualized and appear unremarkable. The pancreatic duct is visualized and is normal in caliber, measuring 0.2 cm. The pancreatic head is partially visualized and appears slightly edematous with indistinct margins, consistent with acute pancreatitis. No definite peripancreatic fluid collection is appreciated. LIVER: Normal. The liver demonstrates normal size, contour and echogenicity. No focal lesion or intrahepatic biliary duct dilatation. GALLBLADDER: The gallbladder is surgically absent. No significant pericholecystic fluid. COMMON BILE DUCT: Normal in caliber measuring 0.7 cm in diameter. RIGHT KIDNEY: Normal. No hydronephrosis. No renal calculi or focal parenchymal lesions. The kidney measures 11.3 cm in maximum dimension. FREE FLUID: None. IMPRESSION: 1. Pancreatic head is indistinct and appears edematous, consistent with patient's history of acute pancreatitis. No significant pancreatic ductal dilatation or peripancreatic fluid collection is seen. 2. Status post cholecystectomy. No focal fluid collection in the gallbladder fossa. Common bile duct at upper limits of normal, measuring 0.7 cm.
--- NOTE | 2017-09-23 20:00 | Cons- Gastroenterology ---
General Information and HPI Consulting Request Date of Consult: 09/23/17 Requested By: Carlito BRUNNER,Ramy Reason for Consult: Abdominal pain Pancreatitis Source of Information: patient, old records Allergies/Medications Allergies: Coded Allergies: Sulfa (Sulfonamide Antibiotics) (Intermediate, RASH 05/21/17) valsartan (From DIOVAN) (RETAIN WATER PER PT 07/18/17) Home Med List: Amlodipine Besylate 5 MG TABLET 2 TAB PO DAILY BP (Reported) Clonazepam 1 MG TABLET 1 TAB PO BIDP PRN ANXIETY (Reported) Duloxetine HCl 60 MG CAPSULE.DR 2 CAP PO DAILY MENTAL HEALTH/NERVE PAIN ( Reported) Metoprolol Succinate 100 MG TAB.ER.24H 1 TAB PO DAILY HEART/BP (Reported) Montelukast Sodium 10 MG TABLET 1 TAB PO DAILY ALLERGIES (Reported) Ondansetron HCl (Zofran) 4 MG TABLET 1 TAB PO Q6-8P PRN Nausea . Spironolactone 100 MG TABLET 1 TAB PO DAILY HTN (Reported) Trazodone HCl 50 MG TABLET 1-2 TAB PO QPM SLEEP (Reported) Current Medications: Current Medications Sig/Anay Start time Last Medication Dose Route Stop Time Status Admin Amlodipine Besylate 10 MG 0900 09/23 0900 AC 09/23 PO 1000 Clonazepam 1 MG BID PRN 09/23 1000 AC PO 09/30 0959 Famotidine 0 .STK-MED ONE 09/23 0533 DC IV Famotidine 20 MG BID 09/23 0400 AC 09/23 IV 09/24 1001 1000 Heparin Sodium 0 .STK-MED ONE 09/23 1314 DC (Porcine) .ROUTE Heparin Sodium 5,000 UNIT Q8 09/23 0600 AC 09/23 (Porcine) SC 1312 Heparin Sodium 0 .STK-MED ONE 09/23 0532 DC (Porcine) .ROUTE Ibuprofen 400 MG TID PRN 09/23 1430 CAN PO Lactated Ringer's 1,000 ML CONTINOUS INFUSION 09/23 2300 AC 09/23 IV 09/25 0359 0135 Lactated Ringer's 1,000 ML Q8H 09/22 2300 DC 09/23 IV 09/24 0659 0135 Metoprolol Succinate 100 MG 0900 09/23 0900 AC 09/23 PO 1000 Morphine Sulfate 0 .STK-MED ONE 09/23 1305 DC .ROUTE Morphine Sulfate 0 .STK-MED ONE 09/23 0956 DC .ROUTE Morphine Sulfate 0 .STK-MED ONE 09/23 0552 DC .ROUTE Morphine Sulfate 2 MG Q4P PRN 09/22 2300 AC 09/23 IV 1303 Morphine Sulfate 0 .STK-MED ONE 09/22 2058 DC .ROUTE Morphine Sulfate 4 MG ONCE ONE 09/22 2045 DC 09/22 IV 09/22 Promethazine HCl 25 MG Q6P PRN 09/22 2345 AC IV 09/30 2343 Promethazine HCl 0 .STK-MED ONE 09/22 2114 DC .ROUTE Promethazine HCl 25 MG ONCE ONE 09/22 2100 DC 09/22 IV 09/22 Past History Travel History Traveled to [place] past 21 day No Medical History Neurological: NONE EENT: Lasik surgery Cardiovascular: hypertension, hyperlipidemia Respiratory: asthma, obstructive sleep apnea Gastrointestinal: pancreatitis Hepatic: ? 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 Age 67. MOTHER, , Age 34; Cause: MVA (motor vehicle accident). PGA, , Age 85; Cause: Colon cancer. Relation not specified for: *No pertinent family history Psychosocial History Who Do You Live With? spouse Services at Home: None Primary Language: Irish Smoking Status: Never Smoked ETOH Use: denies use Living Will? yes Power of Treater Helper/HCP? no Functional Ability ADLs Independent: dressing, eating, toileting, bathing. Ambulation: independent IADLs Independent: shopping, housework, finances, food prep, telephone, transportation , medication admin. Exam & Diagnostic Data Vital Signs and I&O Vital Signs Date Time Temp Pulse Resp B/P B/P Pulse O2 O2 Flow FiO2 Mean Ox Delivery Rate 09/23 1000 131/70 09/23 1000 131/70 09/23 0549 97.9 75 18 104/54 99 09/22 2245 98.2 93 18 122/60 96 Room Air 04/11 2238 Room Air Intake & Output 09/23 04009/21 0400 Intake Total 1200 1100 Output Total Balance 1200 1100 Intake, IV 1200 1100 Patient 230 lb Weight Weight Reported by Patient Measurement Method Physical Exam: Normal except for moderate tenderness in the epigastrium and right upper quadrant Results Pertinent Lab Results: Laboratory Tests 09/23 09/23 1434 0545 Chemistry Sodium (137 - 145 mmol/L) 137 Potassium (3.5 - 5.1 mmol/L) 3.8 Chloride (98 - 107 mmol/L) 100 Carbon Dioxide (22 - 30 mmol/L) 25 Anion Gap (5 - 16) 12 BUN (7 - 17 mg/dL) 6 L Creatinine (0.5 - 1.0 mg/dL) 0.4 L Estimated GFR (>60 ml/min) > 60 BUN/Creatinine Ratio (7 - 25 %) 15.0 Total Bilirubin (0.2 - 1.3 mg/dL) 1.0 Direct Bilirubin (< 0.4 mg/dL) 0.4 AST (14 - 36 U/L) 14 ALT (9 - 52 U/L) 19 Alkaline Phosphatase (<127 U/L) 84 C-Reactive Prot, Quant (<1.0 mg/dL) > 9.0 H C-React Prot High Sens (1.0 - 3.0 mg/L) > 15.0 H Total Protein (6.3 - 8.2 g/dL) 5.5 L Albumin (3.5 - 5.0 g/dL) 2.9 L Hematology CBC w Diff NO MAN DIFF REQ WBC (4.8 - 10.8 /CUMM) 8.8 RBC (4.20 - 5.40 /CUMM) 4.08 L Hgb (12.0 - 16.0 G/DL) 11.1 L Hct (37 - 47 %) 34.2 L MCV (81.0 - 99.0 FL) 83.8 MCH (27.0 - 31.0 PG) 27.1 MCHC (33.0 - 37.0 G/DL) 32.4 L RDW (11.5 - 14.5 %) 18.0 H Plt Count (130 - 400 /CUMM) 238 MPV (7.4 - 10.4 FL) 7.7 Gran % (42.2 - 75.2 %) 77.1 H Lymphocytes % (20.5 - 51.1 %) 12.9 L Monocytes % (1.7 - 9.3 %) 7.2 Eosinophils % (0 - 5 %) 2.5 Basophils % (0.0 - 2.0 %) 0.3 Absolute Granulocytes (1.4 - 6.5 /CUMM) 6.8 H Absolute Lymphocytes (1.2 - 3.4 /CUMM) 1.1 L Absolute Monocytes (0.10 - 0.60 /CUMM) 0.6 Absolute Eosinophils (0.0 - 0.7 /CUMM) 0.2 Absolute Basophils (0.0 - 0.2 /CUMM) 0 09/23 09/22 0005 2032 Chemistry Lactic Acid Cancelled Urines Urine Color (YEL,AMB,STR) YEL Urine Clarity (CLEAR) CLEAR Urine pH (5.0 - 8.0) 6.0 Ur Specific Garrett (1.001 - 1.035) 1.015 Urine Protein (NEG,<30 MG/DL) NEG Urine Ketones (NEG) 40 H Urine Nitrite (NEG) NEG Urine Bilirubin (NEG) NEG@ICTO Urine Urobilinogen (0.1 - 1.0 EU/dl) 0.2 Ur Leukocyte Esterase (NEG) NEG Ur Microscopic EXAM NOT REQUIRED Urine Hemoglobin (NEG) NEG Urine Glucose (N MG/DL) NEG 09/22 1809 Chemistry Sodium (137 - 145 mmol/L) 135 L Potassium (3.5 - 5.1 mmol/L) 4.4 Chloride (98 - 107 mmol/L) 100 Carbon Dioxide (22 - 30 mmol/L) 18 L Anion Gap (5 - 16) 18 H BUN (7 - 17 mg/dL) 10 Creatinine (0.5 - 1.0 mg/dL) 0.5 Estimated GFR (>60 ml/min) > 60 BUN/Creatinine Ratio (7 - 25 %) 20.0 Glucose (65 - 99 mg/dL) 102 H Lactic Acid (0.7 - 2.1 mmol/L) 1.2 Calcium (8.4 - 10.2 mg/dL) 9.8 Phosphorus (2.5 - 4.5 mg/dL) 3.6 Magnesium (1.6 - 2.3 mg/dL) 1.7 Total Bilirubin (0.2 - 1.3 mg/dL) 1.6 H AST (14 - 36 U/L) 18 ALT (9 - 52 U/L) 19 Alkaline Phosphatase (<127 U/L) 82 Troponin I (< 0.11 ng/ml) < 0.01 Total Protein (6.3 - 8.2 g/dL) 6.9 Albumin (3.5 - 5.0 g/dL) 3.9 Globulin (1.9 - 4.2 gm/dL) 3.0 Albumin/Globulin Ratio (1.1 - 2.2 %) 1.3 Lipase (23 - 300 U/L) 2515 H Hematology CBC w Diff NO MAN DIFF REQ WBC (4.8 - 10.8 /CUMM) 15.1 H RBC (4.20 - 5.40 /CUMM) 5.07 Hgb (12.0 - 16.0 G/DL) 13.7 Hct (37 - 47 %) 41.5 MCV (81.0 - 99.0 FL) 81.7 MCH (27.0 - 31.0 PG) 27.0 MCHC (33.0 - 37.0 G/DL) 33.0 RDW (11.5 - 14.5 %) 17.0 H Plt Count (130 - 400 /CUMM) 392 MPV (7.4 - 10.4 FL) 8.1 Gran % (42.2 - 75.2 %) 88.8 H Lymphocytes % (20.5 - 51.1 %) 6.6 L Monocytes % (1.7 - 9.3 %) 4.2 Eosinophils % (0 - 5 %) 0.3 Basophils % (0.0 - 2.0 %) 0.1 Absolute Granulocytes (1.4 - 6.5 /CUMM) 13.4 H Absolute Lymphocytes (1.2 - 3.4 /CUMM) 1.0 L Absolute Monocytes (0.10 - 0.60 /CUMM) 0.6 Absolute Eosinophils (0.0 - 0.7 /CUMM) 0 Absolute Basophils (0.0 - 0.2 /CUMM) 0 Imaging/Other Studies: CT scan: IMPRESSION: 1. Continued signs of pancreatitis with peripancreatic effusions and peripancreatic stranding. Dilated pancreatic duct. 2. Resolution of the pseudocyst. 3. Considerable inflammatory reaction in the lesser sac. Assessment/Plan Assessment/Recommendations: Patient with complicated history of (presumed gallstone) pancreatitis, complicated by necrosis and pseudocyst. Her pseudocyst has been successfully drained with endoscopic cyst gastrostomy, and has not recurred. She presents with recurrent (although minor compared to previous episodes) upper abdominal pain, which has begun to improve. The precipitant is unclear, but likely represent some degree of smoldering pancreatitis,perhaps ductal obstruction. The contribution of alcohol intake seems negligible. Her leukocytosis has resolved. CT demonstrates evidence of continued inflammation in and around the head of the pancreas, as well as what is likely organized post-necrotic material of the lesser sac. Recommendations * Continue nothing by mouth/IV fluids, although with expected continued improvement begin clear liquids tomorrow * Continue parenteral analgesics as necessary Consult Acknowledgment - Thank you for your consult request.
[2017-09-23 22:00] VITALS: BP 119/67
[2017-09-24 06:34] VITALS: BP 115/71
--- NOTE | 2017-09-24 08:02 | Patient Discharge Instructions ---
Discharge Instructions General Discharge Information You were seen/treated for: Acute pancreatitis Special Instructions: -please follow up with GI doctor after 1 week of discharge -please follow up with your primary care doctor -Please refrain from alcohol and high fatty food. Diet Recommended Diet: Low Fat Activity Activity Self Limited: Yes Acute Coronary Syndrome Inclusion Criteria At DC or during hospital stay patient has or had the following: ACS DIAGNOSIS No Discharge Core Measures Meds if any: Prescribed or Continued at Discharge Meds if any: NOT Prescribed or Continued at Discharge Congestive Heart Failure Inclusion Criteria At DC or during hospital stay patient has or had the following: CHF DIAGNOSIS No Discharge Core Measures Meds if any: Prescribed or Continued at Discharge Meds if any: NOT Prescribed or Continued at Discharge Cerebrovascular accident Inclusion Criteria At DC or during hospital stay patient has or had the following: CVA/TIA Diagnosis No Discharge Core Measures Meds if any: Prescribed or Continued at Discharge Meds if any: NOT Prescribed or Continued at Discharge Venous thromboembolism Inclusion Criteria VTE Diagnosis No VTE Type NONE VTE Confirmed by (Test) NONE Discharge Core Measures - Per Current guidelines, there needs to be overlap - treatment for the first 5 days of Warfarin therapy. - If discharged on Warfarin prior to 5 days of - overlap therapy, the patient will need to be - assessed for post discharge needs including - *Post discharge parental anticoagulation - *Warfarin and/or parental anticoagulation education - *Follow up date to check INR post discharge At least 5 days overlap therapy as Inpatient No Meds if any: Prescribed or Continued at Discharge Note: Overlap Therapy is Warfarin and Anticoagulant Meds if any: NOT Prescribed or Continued at Discharge
--- NOTE | 2017-09-24 08:16 | Discharge Summary ---
Hospital Course Allergies: Coded Allergies: Sulfa (Sulfonamide Antibiotics) (Intermediate, RASH 05/21/17) valsartan (From DIOVAN) (RETAIN WATER PER PT 07/18/17) Discharge Instructions Medications at Discharge Discharge Medications: Continue taking these medications: Metoprolol Succinate (Metoprolol Succinate) 100 MG TAB.ER.24H 1 Tablet ORAL DAILY Qty = 30 Comments: Last Taken: 08/01/17 Time: 9:30 AM Amlodipine Besylate (Amlodipine Besylate) 5 MG TABLET 2 Tablet ORAL DAILY Qty = 30 Comments: Last Taken: 08/01/17 Time: 9:30 AM Montelukast Sodium (Montelukast Sodium) 10 MG TABLET 1 Tablet ORAL DAILY Qty = 30 Comments: NOT GIVEN IN HOSPITAL Trazodone HCl (Trazodone HCl) 50 MG TABLET 1-2 Tablet ORAL Every night Qty = 30 Comments: NOT GIVEN IN HOSPITAL Duloxetine HCl (Duloxetine HCl) 60 MG CAPSULE.DR 2 Capsule ORAL DAILY Qty = 60 Comments: Last Taken: 08/01/17 Time: 9:30 AM Clonazepam (Clonazepam) 1 MG TABLET 1 Tablet ORAL 2 x Daily as needed as needed for ANXIETY Qty = 60 Comments: Last Taken: 07/20/17 Time: 10:30 PM Ondansetron HCl (Zofran) 4 MG TABLET 1 Tablet ORAL Every 6-8 Hours as Needed as needed for Nausea Qty = 10 Instructions: . Comments: NOT GIVEN IN HOSPITAL IV ZOFRAN GIVEN 07/31/17 @ 1245 Spironolactone (Spironolactone) 100 MG TABLET 1 Tablet ORAL DAILY Qty = 30
[2017-09-24 09:07] LABS: ABSOLUTE BASOPHIL COUNT 0 /CUMM (0.0-0.2); ABSOLUTE EOSINOPHIL COUNT 0.4 /CUMM (0.0-0.7); ABSOLUTE GRANULOCYTE CT 6.1 /CUMM (1.4-6.5); ABSOLUTE LYMPH COUNT 1.4 /CUMM (1.2-3.4); ABSOLUTE MONOCYTE COUNT 0.6 /CUMM (0.10-0.60); BASOPHIL % 0.6 % (0.0-2.0); EOSINOPHIL % 5.2 % (0-5); GRANULOCYTE % 71.4 % (42.2-75.2); HEMATOCRIT 38.4 % (37-47); MEAN CORPUSCULAR HGB 26.4 PG (27.0-31.0); MEAN CORPUSCULAR HGB CONC 31.2 G/DL (33.0-37.0); MEAN CORPUSCULAR VOLUME 84.5 FL (81.0-99.0); MEAN PLATELET VOLUME 9.2 FL (7.4-10.4); PLATELET COUNT 308 /CUMM (130-400); RBC DISTRIBUTION WIDTH 17.4 % (11.5-14.5); RED BLOOD CELL CT 4.55 /CUMM (4.20-5.40); WHITE BLOOD CELL COUNT 8.5 /CUMM (4.8-10.8)
--- NOTE | 2017-09-24 12:33 | PN- Att Addend ---
Attending Addendum Attending Brief Note Patient seen and examined. She is doing much better today. She denies any nausea vomiting. Denies abdominal pain. She has not been requiring analgesic therapy. She tolerated a liquid breakfast today and is eager to advance her diet. On examination abdomen is nondistended soft, nontender with normal bowel sounds. Clinically have pancreatitis appears to be rapidly improving. Recommendations: -Discontinue IV fluids. -Advance diet. -Mobilize patient. - If she continues to tolerate her diet and remains asymptomatic she may be discharged tomorrow.
--- NOTE | 2017-09-24 13:36 | PN- Housestaff ---
Subjective Follow-up For: Recurrent pancreatitis Subjective: Patient seen and examined. Reports improvement in epigastric pain. wants diet to be advanced was evaluated by gastroenterology yesterday. Afebrile. Patient has not used her morphine since 1 PM yesterday and pain well-controlled Review of Systems Constitutional: Reports: see HPI. Objective Last 24 Hrs of Vital Signs/I&O Vital Signs Date Time Temp Pulse Resp B/P B/P Pulse O2 O2 Flow FiO2 Mean Ox Delivery Rate 09/24 1427 98.6 90 20 120/72 98 Room Air 09/24 0834 80 115/71 09/24 0832 80 115/71 09/24 0634 98.8 80 20 115/71 99 Room Air 09/23 2200 98.8 80 20 119/67 97 Room Air 09/23 1445 97.9 84 16 115/70 98 Intake & Output 09/24 1600 09/24 0800 09/24 0000 Intake Total 1000 1610 Output Total 900 Balance 1000 710 Intake, IV 1000 1610 Intake, Oral 0 0 Number 0 0 Bowel Movements Output, Urine 900 Patient 230 lb Weight Weight Reported by Patient Measurement Method Physical Exam General Appearance: Alert, Oriented X3, No Acute Distress Abdomen: mild epigasstric tenderness Neurological: Normal Speech Current Medications: Current Medications Sig/Anay Start time Last Medication Dose Route Stop Time Status Admin Amlodipine Besylate 10 MG 0900 09/23 0900 AC 09/24 PO 0832 Clonazepam 1 MG BID PRN 09/23 1000 AC 09/24 PO 09/30 0959 0004 Famotidine 20 MG BID 09/23 0400 DC 09/24 IV 09/24 1001 0857 Heparin Sodium 5,000 UNIT Q8 09/23 0600 AC 09/24 (Porcine) SC 0525 Lactated Ringer's 1,000 ML CONTINOUS INFUSION 09/23 2300 AC 09/23 IV 09/25 0359 2111 Metoprolol Succinate 100 MG 0900 09/23 0900 AC 09/24 PO 0834 Morphine Sulfate 2 MG Q4P PRN 09/22 2300 AC 09/23 IV 1303 Patient Medication 1 ED ONE ONE 09/24 0945 DC Teaching ED 09/24 0946 Promethazine HCl 25 MG Q6P PRN 09/22 2345 AC IV 09/29 2344 Last 24 Hrs of Lab/Dangelo Results Last 24 Hrs of Labs/Mics: Laboratory Tests 09/24/17 0730: Anion Gap 16, Estimated GFR > 60, BUN/Creatinine Ratio 7.5, C-Reactive Prot, Quant > 9.0 H, C-React Prot High Sens > 15.0 H, CBC w Diff NO MAN DIFF REQ, RBC 4.55, MCV 84.5, MCH 26.4 L, MCHC 31.2 L, RDW 17.4 H, MPV 9.2, Gran % 71.4 , Lymphocytes % 16.2 L, Monocytes % 6.6, Eosinophils % 5.2 H, Basophils % 0.6, Absolute Granulocytes 6.1, Absolute Lymphocytes 1.4, Absolute Monocytes 0.6, Absolute Eosinophils 0.4, Absolute Basophils 0 09/23/17 1434: Anion Gap 12, Estimated GFR > 60, BUN/Creatinine Ratio 15.0, Total Bilirubin 1.0 , Direct Bilirubin 0.4, AST 14, ALT 19, Alkaline Phosphatase 84, C-Reactive Prot , Quant > 9.0 H, C-React Prot High Sens > 15.0 H, Total Protein 5.5 L, Albumin 2.9 L Assessment/Plan Assessment: Ms. Kwok is a 47 years old woman with PMH of asthma, HTN, HLD, anxiety, depression, panic attacks, DVT postop (1993), choledocholithiasis, gallstone pancreatitis s/p laparoscopic cholecystectomy, and necrotic pancreatitis, pseudocyst s/p stent placement who presented to the ED with abdominal discomfort The patient was being treated and evaluated for following conditions #Acute recurrent pancreatitis Patient presentation ,elevated lipase and imaging finding are consistent with acute recurrent pancreatitis.The trigger of her current bout of pancreatitis is unknown. she reports consuming high fat meal -Patient consuled to avoid high fatty meals and alcohol. -We have advanced the diet from nothing by mouth to clear liquids patient had a full liquid lunch and dinner will be advanced to a low-fat regular diet. -If remains stable she will be discharged tomorrow. With instructions to follow -up with Dr. Canela after discharge within 1 week -CRP for 3 days -GI ON BOARD #Reactive leukocytosis -Resolved #History of hypertension -Continue her home antihypertensives amlodipine, metoprolol #Drop in H/H-stable Likely dilution because of her cell lines were down on 09/23. -Continue to monitor #DVT prophylaxis with Lovenox/full code/nothing by mouth Problem List: 1. Pancreatitis 2. Acute pancreatitis Pain Ratin Pain Location: epigastric Pain Goal: Pain 4 or less Pain Plan: prn Tomorrow's Labs & Rationales: cbc
[2017-09-24 14:27] VITALS: BP 120/72
[2017-09-24 21:30] VITALS: BP 112/68
--- NOTE | 2017-09-24 23:36 | PN- Gastroenterology ---
Assessment/Plan GI Assessment/Recommendations: (*Please refer to Dr. Edilberto Fernandez's GI consult of 09/23/17. The patient is followed for GI as outpt by Dr. Canela. Extensive records reviewed. I assumed the inpt GI service on 09/24/17). 47 y/o female with PMH of asthma, HTN, HLD, obesity, anxiety, depression, panic attacks, DVT postop (1993), choledocholithiasis, gallstone pancreatitis s/p laparoscopic cholecystectomy, and necrotizing pancreatitis, pseudocyst s/p EUS with stent placement (cystogastrostomy) at [facility], per Dr. Thomas. Her internal stent was pulled there 09/06/17. The patient was admitted to [facility] 09/22/17 with recurrent pancreatitis. Her admission 09/22/17: CT AP with IV contrast showed resolution of the pseudocyst, but evidence of pancreatitis, still with some inflammatory reaction at the lesser sac (to be reviewed by Dr. Thomas at [facility] for comparison with previous CT there). There is no hx hyperTG. 06/10/17: nl IgG4: 22, going against autoimmune pancreatitis. *As of 09/24/17, the pt was hemodynamically stable and afebrile, with O2 sat RA 98%. She felt much improved. She tolerated a low-fat diet & was ambulating. She denied any nausea, vomiting, or abdominal pain. She had not require narcotic analgesics for 24 hours. She denied any chest pain, shortness of breath, jaundice, fevers, or chills. *SUGGEST- Continue low fat diet. Continue to ambulate patient. DVT prophylaxis. Analgesics as needed. Empiric Pepcid. Phenergan as needed. Gentle IVF with Riger's lactate. (*Dr. Thomas at [facility] GI to compare recent [facility] admission : CT AP with IV contrast to the last CT at [facility]. It appears that her pseudocyst has been successfully drained by cystgastrostomy, but there was some residual inflammation of the lesser sac and at the head of the pancreas; exact etiology unknown). If stable, possible D/C to home tomorrow, Outpt GI f/u with Dr. Canela. Problem List: 1. Pancreatitis 2. Pseudocyst of pancreas 3. Abdominal pain 4. Nausea & vomiting 5. History of laparoscopic cholecystectomy 6. Morbid obesity Subjective Subjective: *As of 09/24/17, the pt was hemodynamically stable and afebrile, with O2 sat RA 98%. She felt much improved. She tolerated a low-fat diet & was ambulating. She denied any nausea, vomiting, or abdominal pain. She had not require narcotic analgesics for 24 hours. She denied any chest pain, shortness of breath, jaundice, fevers, or chills. Review of Systems: Full 14 point ROS otherwise noncontributory, and as above. Review of Systems Constitutional: Reports: unexplained weight loss (plateaued). Denies: chills, diaphoresis, fever, malaise, weakness. EENTM: Denies: no symptoms, blurred vision, double vision, visual changes, eye pain, eye drainage, eye tearing, icterus, ear discharge, ear pain, ear redness, hearing changes, nasal congestion, epistaxis, nasal pain, throat pain, throat swelling, mouth pain, tooth pain. Cardiovascular: Denies: chest pain, edema, orthopena, palpitations, peripheral edema, syncope. Respiratory: Denies: cough, hemoptysis, orthopnea, short of breath, sputum production, stridor, wheezing. Gastrointestinal: Reports: abdominal pain (resolved), nausea (resolved), vomiting (resolved). Denies: bloating, constipation, diarrhea, distention, bowel incontinence, melena , bloody stool, changes in stool, steatorrhea. Genitourinary: Denies: discharge, dysuria, frequency, hematuria, hesitation, nocturia, pain, urgency. Musculoskeletal: Denies: back pain, gout, joint pain, joint swelling, muscle pain, muscle stiffness, neck pain. Skin: Denies: cysts, change in skin color, change in hair/nails, dryness, erythema, jaundice, lesions, lymphangitis, lumps, moles, rash. Neurological/Psychological: Reports: anxiety (stable), depressed (stable), emotional problems (stable). Denies: ataxia, cognitive dysfunction, confusion, dementia, headache, numbness, paresthesia, pre-existing deficit, petit mal seizures, tingling, tremors, tonic- clonic seizures, unable to move lower ext, unable to move upper ext, weakness. Hematologic/Endocrine: Denies: bruising, bleeding, polyuria, polydipsia. Immunologic/Allergic: Denies: splenectomy, HIV/AIDS, lymphadenopathy. All Other Systems: Reviewed and Negative Objective Vital Signs and I&Os Vital Signs Date Time Temp Pulse Resp B/P B/P Pulse O2 O2 Flow FiO2 Mean Ox Delivery Rate 09/24 2130 98.0 85 18 112/68 98 Room Air 09/24 1427 98.6 90 20 120/72 98 Room Air 09/24 0834 80 115/71 09/24 0832 80 115/71 09/24 0634 98.8 80 20 115/71 99 Room Air Intake & Output 09/24 1600 09/24 0400 09/23 1600 09/23 0400 09/22 1600 09/22 0400 Intake Total 1800 1610 1200 1100 Output Total 900 Balance 9318 026 6106 1100 Intake, IV 1000 1610 1200 1100 Intake, Oral 800 0 Number 0 0 Bowel Movements Output, Urine 900 Patient 230 lb 230 lb Weight Weight Reported by Patient Reported by Patient Measurement Method Physical Exam: Well-developed, well-nourished, pleasant, obese female, nontoxic appearing, in no apparent distress. Sclera anicteric. Conjunctiva pink. Oropharynx clear. No oral thrush. No aphthous ulcers. There is no adenopathy, thyromegaly, or JVD. No peripheral stigmata of inflammatory bowel disease or chronic liver disease on exam. No spiders on the anterior chest wall. Breast & pelvic exams: API. No CVA tenderness. No point spine tenderness. Lungs: clear to A&P, except for slight decreased BS at the bases B/L. No wheezing, rales, or rhonchi. Heart exam: regular rate rhythm, S1 and S2, without any murmur. Abdominal exam: normal bowel sounds, soft belly, nontender, without guarding or rebound. No mass. No definite organomegaly. No fluid shift. No pulsatile mass. No epigastric bruit. Port sites healed. Digital rectal exam: deferred by patient. Extremities: without cyanosis or clubbing. < 1+ peripheral edema B/L LE, L > R (chronic). No palpable cords. No rash. Mild DJD. No acute arthropathy. No palmar erythema. No Dupuytren's contractures. Distal pulses 2+ bilaterally. DTRs 2+ bilaterally. Alert and oriented x 3. Motor 5/5 B/L. No tremor. No asterixis. A detailed exam for peripheral neuropathy was deferred. Current Medications: Current Medications Sig/Anay Start time Last Medication Dose Route Stop Time Status Admin Amlodipine Besylate 10 MG 0900 09/23 0900 AC 09/24 PO 0832 Clonazepam 1 MG BID PRN 09/23 1000 AC 09/24 PO 09/30 0959 2106 Famotidine 20 MG BID 09/23 0400 DC 09/24 IV 09/24 1001 0857 Heparin Sodium 5,000 UNIT Q8 09/23 0600 AC 09/24 (Porcine) SC 2100 Lactated Ringer's 1,000 ML CONTINOUS INFUSION 09/23 2300 AC 09/23 IV 09/25 0359 2111 Metoprolol Succinate 100 MG 0900 09/23 0900 AC 09/24 PO 0834 Morphine Sulfate 2 MG Q4P PRN 09/22 2300 AC 09/23 IV 1303 Patient Medication 1 ED ONE ONE 09/24 0945 DC Teaching ED 09/24 0946 Promethazine HCl 25 MG Q6P PRN 09/22 2345 AC IV 09/29 2344 Results Pertinent Lab Results: Laboratory Tests 09/24 09/23 0730 1434 Chemistry Sodium (137 - 145 mmol/L) 139 137 Potassium (3.5 - 5.1 mmol/L) 4.4 3.8 Chloride (98 - 107 mmol/L) 101 100 Carbon Dioxide (22 - 30 mmol/L) 21 L 25 Anion Gap (5 - 16) 16 12 BUN (7 - 17 mg/dL) 3 L 6 L Creatinine (0.5 - 1.0 mg/dL) 0.4 L 0.4 L Estimated GFR (>60 ml/min) > 60 > 60 BUN/Creatinine Ratio (7 - 25 %) 7.5 15.0 Total Bilirubin (0.2 - 1.3 mg/dL) 1.0 Direct Bilirubin (< 0.4 mg/dL) 0.4 AST (14 - 36 U/L) 14 ALT (9 - 52 U/L) 19 Alkaline Phosphatase (<127 U/L) 84 C-Reactive Prot, Quant (<1.0 mg/dL) > 9.0 H > 9.0 H C-React Prot High Sens (1.0 - 3.0 mg/L) > 15.0 H > 15.0 H Total Protein (6.3 - 8.2 g/dL) 5.5 L Albumin (3.5 - 5.0 g/dL) 2.9 L Hematology CBC w Diff NO MAN DIFF REQ WBC (4.8 - 10.8 /CUMM) 8.5 RBC (4.20 - 5.40 /CUMM) 4.55 Hgb (12.0 - 16.0 G/DL) 12.0 Hct (37 - 47 %) 38.4 MCV (81.0 - 99.0 FL) 84.5 MCH (27.0 - 31.0 PG) 26.4 L MCHC (33.0 - 37.0 G/DL) 31.2 L RDW (11.5 - 14.5 %) 17.4 H Plt Count (130 - 400 /CUMM) 308 MPV (7.4 - 10.4 FL) 9.2 Gran % (42.2 - 75.2 %) 71.4 Lymphocytes % (20.5 - 51.1 %) 16.2 L Monocytes % (1.7 - 9.3 %) 6.6 Eosinophils % (0 - 5 %) 5.2 H Basophils % (0.0 - 2.0 %) 0.6 Absolute Granulocytes (1.4 - 6.5 /CUMM) 6.1 Absolute Lymphocytes (1.2 - 3.4 /CUMM) 1.4 Absolute Monocytes (0.10 - 0.60 /CUMM) 0.6 Absolute Eosinophils (0.0 - 0.7 /CUMM) 0.4 Absolute Basophils (0.0 - 0.2 /CUMM) 0 09/23 09/23 0545 0005 Hematology CBC w Diff NO MAN DIFF REQ WBC (4.8 - 10.8 /CUMM) 8.8 RBC (4.20 - 5.40 /CUMM) 4.08 L Hgb (12.0 - 16.0 G/DL) 11.1 L Hct (37 - 47 %) 34.2 L MCV (81.0 - 99.0 FL) 83.8 MCH (27.0 - 31.0 PG) 27.1 MCHC (33.0 - 37.0 G/DL) 32.4 L RDW (11.5 - 14.5 %) 18.0 H Plt Count (130 - 400 /CUMM) 238 MPV (7.4 - 10.4 FL) 7.7 Gran % (42.2 - 75.2 %) 77.1 H Lymphocytes % (20.5 - 51.1 %) 12.9 L Monocytes % (1.7 - 9.3 %) 7.2 Eosinophils % (0 - 5 %) 2.5 Basophils % (0.0 - 2.0 %) 0.3 Absolute Granulocytes (1.4 - 6.5 /CUMM) 6.8 H Absolute Lymphocytes (1.2 - 3.4 /CUMM) 1.1 L Absolute Monocytes (0.10 - 0.60 /CUMM) 0.6 Absolute Eosinophils (0.0 - 0.7 /CUMM) 0.2 Absolute Basophils (0.0 - 0.2 /CUMM) 0 Urines Urine Color (YEL,AMB,STR) YEL Urine Clarity (CLEAR) CLEAR Urine pH (5.0 - 8.0) 6.0 Ur Specific [place] (1.001 - 1.035) 1.015 Urine Protein (NEG,<30 MG/DL) NEG Urine Ketones (NEG) 40 H Urine Nitrite (NEG) NEG Urine Bilirubin (NEG) NEG@ICTO Urine Urobilinogen (0.1 - 1.0 EU/dl) 0.2 Ur Leukocyte Esterase (NEG) NEG Ur Microscopic EXAM NOT REQUIRED Urine Hemoglobin (NEG) NEG Urine Glucose (N MG/DL) NEG 09/22 1810 Chemistry Sodium (137 - 145 mmol/L) 135 L Potassium (3.5 - 5.1 mmol/L) 4.4 Chloride (98 - 107 mmol/L) 100 Carbon Dioxide (22 - 30 mmol/L) 18 L Anion Gap (5 - 16) 18 H BUN (7 - 17 mg/dL) 10 Creatinine (0.5 - 1.0 mg/dL) 0.5 Estimated GFR (>60 ml/min) > 60 BUN/Creatinine Ratio (7 - 25 %) 20.0 Glucose (65 - 99 mg/dL) 102 H Lactic Acid (0.7 - 2.1 mmol/L) Cancelled 1.2 Calcium (8.4 - 10.2 mg/dL) 9.8 Phosphorus (2.5 - 4.5 mg/dL) 3.6 Magnesium (1.6 - 2.3 mg/dL) 1.7 Total Bilirubin (0.2 - 1.3 mg/dL) 1.6 H AST (14 - 36 U/L) 18 ALT (9 - 52 U/L) 19 Alkaline Phosphatase (<127 U/L) 82 Troponin I (< 0.11 ng/ml) < 0.01 Total Protein (6.3 - 8.2 g/dL) 6.9 Albumin (3.5 - 5.0 g/dL) 3.9 Globulin (1.9 - 4.2 gm/dL) 3.0 Albumin/Globulin Ratio (1.1 - 2.2 %) 1.3 Lipase (23 - 300 U/L) 2515 H Hematology CBC w Diff NO MAN DIFF REQ WBC (4.8 - 10.8 /CUMM) 15.1 H RBC (4.20 - 5.40 /CUMM) 5.07 Hgb (12.0 - 16.0 G/DL) 13.7 Hct (37 - 47 %) 41.5 MCV (81.0 - 99.0 FL) 81.7 MCH (27.0 - 31.0 PG) 27.0 MCHC (33.0 - 37.0 G/DL) 33.0 RDW (11.5 - 14.5 %) 17.0 H Plt Count (130 - 400 /CUMM) 392 MPV (7.4 - 10.4 FL) 8.1 Gran % (42.2 - 75.2 %) 88.8 H Lymphocytes % (20.5 - 51.1 %) 6.6 L Monocytes % (1.7 - 9.3 %) 4.2 Eosinophils % (0 - 5 %) 0.3 Basophils % (0.0 - 2.0 %) 0.1 Absolute Granulocytes (1.4 - 6.5 /CUMM) 13.4 H Absolute Lymphocytes (1.2 - 3.4 /CUMM) 1.0 L Absolute Monocytes (0.10 - 0.60 /CUMM) 0.6 Absolute Eosinophils (0.0 - 0.7 /CUMM) 0 Absolute Basophils (0.0 - 0.2 /CUMM) 0 Imaging/Other Studies: 09/22/17: EKG- ST @ 101, nl axis, nl intervals, without acute ischemia. 09/22/17: CT ABD & PELVIS W IV CONTRAST- IMPRESSION: 1. Continued signs of pancreatitis with peripancreatic effusions and peripancreatic stranding. Dilated pancreatic duct. 2. Resolution of the pseudocyst. 3. Considerable inflammatory reaction in the lesser sac. (*Dr. Thomas of [facility] to review this CT & compare it with the last CT at [facility]). 09/22/17: XRY-PORTABLE CHEST XRAY- Normal chest. 09/23/17: US-LIMITED ABDOMEN- 1. Pancreatic head is indistinct and appears edematous, consistent with patient's history of acute pancreatitis. No significant pancreatic ductal dilatation 2 mm, or peripancreatic fluid collection is seen. 2. Status post cholecystectomy. No focal fluid collection in the gallbladder fossa. Common bile duct at upper limits of normal, measuring 0.7 cm. 3. Normal liver.
[2017-09-25 07:01] VITALS: BP 125/76
[2017-09-25 08:11] VITALS: BP 125/76
--- NOTE | 2017-09-25 10:01 | PN- Housestaff ---
See Addendum Subjective Follow-up For: Recurrent pancreatitis Complaints: no complaints Subjective: Patient seen and examined at bedside. No abdominal pain today. Has been able to tolerate a low-fat diet. Review of Systems Constitutional: Reports: see HPI. Objective Last 24 Hrs of Vital Signs/I&O Vital Signs Date Time Temp Pulse Resp B/P B/P Pulse O2 O2 Flow FiO2 Mean Ox Delivery Rate 09/25 0811 82 125/76 09/25 0811 82 125/76 09/25 0701 98.0 82 20 125/76 99 09/24 2130 98.0 85 18 112/68 98 Room Air 09/24 1427 98.6 90 20 120/72 98 Room Air Intake & Output 09/25 1600 09/25 0800 09/25 0000 Intake Total 60 200 Output Total Balance 60 200 Intake, Oral 60 200 Patient 104.326 kg Weight Physical Exam General Appearance: Alert, Oriented X3, Cooperative Skin: No Rashes, No Breakdown HEENT: Atraumatic, PERRLA, EOMI Neck: Supple, No JVD Lymphatic: Cervical nl Cardiovascular: Regular Rate, Normal S1, Normal S2 Lungs: Clear to Auscultation, Normal Air Movement Abdomen: Normal Bowel Sounds, Soft, No Tenderness Neurological: Normal Gait Extremities: No Clubbing Current Medications: Current Medications Sig/Anay Start time Last Medication Dose Route Stop Time Status Admin Amlodipine Besylate 10 MG 0900 09/23 0900 AC 09/25 PO 0811 Clonazepam 1 MG BID PRN 09/23 1000 AC 09/24 PO 09/30 0959 2106 Famotidine 20 MG BID 09/23 0400 DC 09/24 IV 09/24 1001 0857 Heparin Sodium 5,000 UNIT Q8 09/23 0600 AC 09/25 (Porcine) SC 0520 Lactated Ringer's 1,000 ML CONTINOUS INFUSION 09/23 2300 DC 09/23 IV 09/25 0359 2111 Metoprolol Succinate 100 MG 0900 09/23 0900 AC 09/25 PO 0811 Morphine Sulfate 2 MG Q4P PRN 09/22 2300 AC 09/23 IV 1303 Promethazine HCl 25 MG Q6P PRN 09/22 2345 AC IV 09/29 2344 Last 24 Hrs of Lab/Dangelo Results Last 24 Hrs of Labs/Mics: Laboratory Tests 09/25/17 0740: C-Reactive Prot, Quant Pending, C-React Prot High Sens > 15.0 H Assessment/Plan Assessment: Ms. Kwok is a 47 years old woman with PMH of asthma, HTN, HLD, anxiety, depression, panic attacks, DVT postop (1993), choledocholithiasis, gallstone pancreatitis s/p laparoscopic cholecystectomy, and necrotic pancreatitis, pseudocyst s/p stent placement who presented to the ED with abdominal discomfort Plan #Acute recurrent pancreatitis -Patient doing much better today, has tolerated a low-fat diet. Vitals and labs stable. Denies abdominal pain, nausea and vomiting. Has been ambulating by herself. Plan to discharge today with outpatient follow-up with #Reactive leukocytosis -Resolved #History of hypertension -Continue her home antihypertensives amlodipine, metoprolol #DVT prophylaxis with Lovenox/full code/nothing by mouth Problem List: 1. Acute pancreatitis Pain Ratin Pain Location: Abdomen Pain Goal: Pain 4 or less Pain Plan: When necessary Tylenol Tomorrow's Labs & Rationales: Any
--- NOTE | 2017-09-25 11:11 | PN- Gastroenterology ---
Assessment/Plan GI Assessment/Recommendations: (*Please refer to Dr. Edilberto Fernandez's GI consult of 09/23/17. The patient is followed for GI as outpt by Dr. Canela. Extensive records reviewed. I assumed the inpt GI service on 09/24/17). 47 y/o female with PMH of asthma, HTN, HLD, obesity, anxiety, depression, panic attacks, DVT postop (1993), choledocholithiasis, gallstone pancreatitis s/p laparoscopic cholecystectomy, and necrotizing pancreatitis, pseudocyst s/p EUS with stent placement (cystogastrostomy) at [facility], per Dr. Thomas. Her internal stent was pulled there 09/06/17. The patient was admitted to [place] 09/22/17 with recurrent pancreatitis. Her admission 09/22/17: CT AP with IV contrast showed resolution of the pseudocyst, but evidence of pancreatitis, still with some inflammatory reaction at the lesser sac (to be reviewed by Dr. Thomas at [facility] for comparison with previous CT there). There is no hx hyperTG. 06/10/17: nl IgG4: 22, going against autoimmune pancreatitis. *As of 09/24/17, the pt was hemodynamically stable and afebrile, with O2 sat RA 98%. She felt much improved. She tolerated a low-fat diet & was ambulating. She denied any nausea, vomiting, or abdominal pain. She had not require narcotic analgesics for 24 hours. She denied any chest pain, shortness of breath, jaundice, fevers, or chills. There was no sognificant hemoconcentration throught the course of the admission. Of note, 09/23/17: *CRP > 9.0. *As of , the patient was essentially asymptomatic. She tolerated a low-fat diet for breakfast & was ambulating. She denied any jaundice, abdominal pain, nausea, vomiting, fevers, chills, chest pain, or shortness of breath. She was hemodynamically stable & afebrile, with O2 sat RA 99%. The patient was in good spirits. She had not required narcotic analgesics for over 48 hours. *SUGGEST- Continue low fat diet. Okay for discharge to home today from GI perspective. Analgesics as needed. Empiric Pepcid. Phenergan as needed. (*Dr. Thomas at [facility] GI to compare recent [place] admission 09/22/17: CT AP with IV contrast to the last CT at [facility]. It appears that her pseudocyst has been successfully drained by cystgastrostomy, but there was some residual inflammation of the lesser sac and at the head of the pancreas; exact etiology unknown). Outpt GI f/ u with Dr. Canela. Problem List: 1. Pancreatitis 2. Pseudocyst of pancreas 3. Abdominal pain 4. Acute pancreatitis 5. History of laparoscopic cholecystectomy 6. Morbid obesity 7. Malnutrition Subjective Subjective: *As of , the patient was essentially asymptomatic. She tolerated a low-fat diet for breakfast & was ambulating. She denied any jaundice, abdominal pain, nausea, vomiting, fevers, chills, chest pain, or shortness of breath. She was hemodynamically stable & afebrile, with O2 sat RA 99%. The patient was in good spirits. She had not required narcotic analgesics for over 48 hours. Review of Systems: Full 14 point ROS otherwise noncontributory, and as above. Review of Systems Constitutional: Reports: unexplained weight loss (plateaued). Denies: chills, diaphoresis, fever, malaise, weakness. EENTM: Denies: no symptoms, blurred vision, double vision, visual changes, eye pain, eye drainage, eye tearing, icterus, ear discharge, ear pain, ear redness, hearing changes, nasal congestion, epistaxis, nasal pain, throat pain, throat swelling, mouth pain, tooth pain. Cardiovascular: Denies: chest pain, edema, orthopena, palpitations, peripheral edema, syncope. Respiratory: Denies: cough, hemoptysis, orthopnea, short of breath, sputum production, stridor, wheezing. Gastrointestinal: Reports: abdominal pain (resolved), nausea (resolved), vomiting (resolved). Denies: bloating, constipation, diarrhea, distention, bowel incontinence, melena , bloody stool, changes in stool, steatorrhea. Genitourinary: Denies: discharge, dysuria, frequency, hematuria, hesitation, nocturia, pain, urgency. Musculoskeletal: Denies: back pain, gout, joint pain, joint swelling, muscle pain, muscle stiffness, neck pain. Skin: Denies: cysts, change in skin color, change in hair/nails, dryness, erythema, jaundice, lesions, lymphangitis, lumps, moles, rash. Neurological/Psychological: Reports: anxiety (stable), depressed (stable), emotional problems (stable). Denies: ataxia, cognitive dysfunction, confusion, dementia, headache, numbness, paresthesia, pre-existing deficit, petit mal seizures, tingling, tremors, tonic- clonic seizures, unable to move lower ext, unable to move upper ext, weakness. Hematologic/Endocrine: Denies: bruising, bleeding, polyuria, polydipsia. Immunologic/Allergic: Denies: splenectomy, HIV/AIDS, lymphadenopathy. All Other Systems: Reviewed and Negative. Objective Vital Signs and I&Os Vital Signs Date Time Temp Pulse Resp B/P B/P Pulse O2 O2 Flow FiO2 Mean Ox Delivery Rate 09/25 0811 82 125/76 09/25 0811 82 125/76 09/25 0701 98.0 82 20 125/76 99 09/24 2130 98.0 85 18 112/68 98 Room Air 09/24 1427 98.6 90 20 120/72 98 Room Air Intake & Output 09/25 1600 09/25 0400 09/24 1600 09/24 0400 09/23 1600 09/23 0400 Intake Total 60 200 1800 1610 1200 1100 Output Total 900 Balance 60 200 1075 428 0609 1100 Intake, IV 1000 1610 1200 1100 Intake, Oral 60 200 800 0 Number 0 0 Bowel Movements Output, Urine 900 Patient 230 lb 230 lb Weight Weight Reported by Patient Measurement Method Physical Exam: Well-developed, well-nourished, pleasant, obese female, nontoxic appearing, in no apparent distress. Sclera anicteric. Conjunctiva pink. Oropharynx clear. No oral thrush. No aphthous ulcers. There is no adenopathy, thyromegaly, or JVD. No peripheral stigmata of inflammatory bowel disease or chronic liver disease on exam. No spiders on the anterior chest wall. Breast & pelvic exams: API. No CVA tenderness. No point spine tenderness. Lungs: clear to A&P, except for slight decreased BS at the bases B/L. No wheezing, rales, or rhonchi. Heart exam: regular rate rhythm, S1 and S2, without any murmur. Abdominal exam: normal bowel sounds, soft belly, obese, nontender, without guarding or rebound. No mass. No definite organomegaly. No fluid shift. No pulsatile mass. No epigastric bruit. Port sites healed. Digital rectal exam: deferred by patient. Extremities: without cyanosis or clubbing. < 1+ peripheral edema B/L LE, L > R ( chronic). No palpable cords. No rash. Mild DJD. No acute arthropathy. No palmar erythema. No Dupuytren's contractures. Distal pulses 2+ bilaterally. DTRs 2+ bilaterally. Alert and oriented x 3. Motor 5/5 B/L. No tremor. No asterixis. A detailed exam for peripheral neuropathy was deferred. Current Medications: Current Medications Sig/Anay Start time Last Medication Dose Route Stop Time Status Admin Amlodipine Besylate 10 MG 0900 09/23 0900 AC 09/25 PO 0811 Clonazepam 1 MG BID PRN 09/23 1000 AC 09/24 PO 09/30 0959 2106 Heparin Sodium 5,000 UNIT Q8 09/23 0600 AC 09/25 (Porcine) SC 0520 Lactated Ringer's 1,000 ML CONTINOUS INFUSION 09/23 2300 DC 09/23 IV 09/25 0359 2111 Metoprolol Succinate 100 MG 0900 09/23 0900 AC 09/25 PO 0811 Morphine Sulfate 2 MG Q4P PRN 09/22 2300 AC 09/23 IV 1303 Promethazine HCl 25 MG Q6P PRN 09/22 2345 AC IV 09/29 2344 Results Pertinent Lab Results: Laboratory Tests 09/25 09/24 09/23 0740 0730 1434 Chemistry Sodium (137 - 145 mmol/L) 139 137 Potassium (3.5 - 5.1 mmol/L) 4.4 3.8 Chloride (98 - 107 mmol/L) 101 100 Carbon Dioxide (22 - 30 mmol/L) 21 L 25 Anion Gap (5 - 16) 16 12 BUN (7 - 17 mg/dL) 3 L 6 L Creatinine (0.5 - 1.0 mg/dL) 0.4 L 0.4 L Estimated GFR (>60 ml/min) > 60 > 60 BUN/Creatinine Ratio (7 - 25 %) 7.5 15.0 Total Bilirubin (0.2 - 1.3 mg/dL) 1.0 Direct Bilirubin (< 0.4 mg/dL) 0.4 AST (14 - 36 U/L) 14 ALT (9 - 52 U/L) 19 Alkaline Phosphatase (<127 U/L) 84 C-Reactive Prot, Quant (<1.0 mg/dL) > 9.0 H > 9.0 H > 9.0 H C-React Prot High Sens (1.0 - 3.0 mg/L) > 15.0 H > 15.0 H > 15.0 H Total Protein (6.3 - 8.2 g/dL) 5.5 L Albumin (3.5 - 5.0 g/dL) 2.9 L Hematology CBC w Diff NO MAN DIFF REQ WBC (4.8 - 10.8 /CUMM) 8.5 RBC (4.20 - 5.40 /CUMM) 4.55 Hgb (12.0 - 16.0 G/DL) 12.0 Hct (37 - 47 %) 38.4 MCV (81.0 - 99.0 FL) 84.5 MCH (27.0 - 31.0 PG) 26.4 L MCHC (33.0 - 37.0 G/DL) 31.2 L RDW (11.5 - 14.5 %) 17.4 H Plt Count (130 - 400 /CUMM) 308 MPV (7.4 - 10.4 FL) 9.2 Gran % (42.2 - 75.2 %) 71.4 Lymphocytes % (20.5 - 51.1 %) 16.2 L Monocytes % (1.7 - 9.3 %) 6.6 Eosinophils % (0 - 5 %) 5.2 H Basophils % (0.0 - 2.0 %) 0.6 Absolute Granulocytes (1.4 - 6.5 /CUMM) 6.1 Absolute Lymphocytes (1.2 - 3.4 /CUMM) 1.4 Absolute Monocytes (0.10 - 0.60 /CUMM) 0.6 Absolute Eosinophils (0.0 - 0.7 /CUMM) 0.4 Absolute Basophils (0.0 - 0.2 /CUMM) 0 09/23 09/23 0545 0005 Hematology CBC w Diff NO MAN DIFF REQ WBC (4.8 - 10.8 /CUMM) 8.8 RBC (4.20 - 5.40 /CUMM) 4.08 L Hgb (12.0 - 16.0 G/DL) 11.1 L Hct (37 - 47 %) 34.2 L MCV (81.0 - 99.0 FL) 83.8 MCH (27.0 - 31.0 PG) 27.1 MCHC (33.0 - 37.0 G/DL) 32.4 L RDW (11.5 - 14.5 %) 18.0 H Plt Count (130 - 400 /CUMM) 238 MPV (7.4 - 10.4 FL) 7.7 Gran % (42.2 - 75.2 %) 77.1 H Lymphocytes % (20.5 - 51.1 %) 12.9 L Monocytes % (1.7 - 9.3 %) 7.2 Eosinophils % (0 - 5 %) 2.5 Basophils % (0.0 - 2.0 %) 0.3 Absolute Granulocytes (1.4 - 6.5 /CUMM) 6.8 H Absolute Lymphocytes (1.2 - 3.4 /CUMM) 1.1 L Absolute Monocytes (0.10 - 0.60 /CUMM) 0.6 Absolute Eosinophils (0.0 - 0.7 /CUMM) 0.2 Absolute Basophils (0.0 - 0.2 /CUMM) 0 Urines Urine Color (YEL,AMB,STR) YEL Urine Clarity (CLEAR) CLEAR Urine pH (5.0 - 8.0) 6.0 Ur Specific [place] (1.001 - 1.035) 1.015 Urine Protein (NEG,<30 MG/DL) NEG Urine Ketones (NEG) 40 H Urine Nitrite (NEG) NEG Urine Bilirubin (NEG) NEG@ICTO Urine Urobilinogen (0.1 - 1.0 EU/dl) 0.2 Ur Leukocyte Esterase (NEG) NEG Ur Microscopic EXAM NOT REQUIRED Urine Hemoglobin (NEG) NEG Urine Glucose (N MG/DL) NEG 09/220 Chemistry Sodium (137 - 145 mmol/L) 135 L Potassium (3.5 - 5.1 mmol/L) 4.4 Chloride (98 - 107 mmol/L) 100 Carbon Dioxide (22 - 30 mmol/L) 18 L Anion Gap (5 - 16) 18 H BUN (7 - 17 mg/dL) 10 Creatinine (0.5 - 1.0 mg/dL) 0.5 Estimated GFR (>60 ml/min) > 60 BUN/Creatinine Ratio (7 - 25 %) 20.0 Glucose (65 - 99 mg/dL) 102 H Lactic Acid (0.7 - 2.1 mmol/L) Cancelled 1.2 Calcium (8.4 - 10.2 mg/dL) 9.8 Phosphorus (2.5 - 4.5 mg/dL) 3.6 Magnesium (1.6 - 2.3 mg/dL) 1.7 Total Bilirubin (0.2 - 1.3 mg/dL) 1.6 H AST (14 - 36 U/L) 18 ALT (9 - 52 U/L) 19 Alkaline Phosphatase (<127 U/L) 82 Troponin I (< 0.11 ng/ml) < 0.01 Total Protein (6.3 - 8.2 g/dL) 6.9 Albumin (3.5 - 5.0 g/dL) 3.9 Globulin (1.9 - 4.2 gm/dL) 3.0 Albumin/Globulin Ratio (1.1 - 2.2 %) 1.3 Lipase (23 - 300 U/L) 2515 H Hematology CBC w Diff NO MAN DIFF REQ WBC (4.8 - 10.8 /CUMM) 15.1 H RBC (4.20 - 5.40 /CUMM) 5.07 Hgb (12.0 - 16.0 G/DL) 13.7 Hct (37 - 47 %) 41.5 MCV (81.0 - 99.0 FL) 81.7 MCH (27.0 - 31.0 PG) 27.0 MCHC (33.0 - 37.0 G/DL) 33.0 RDW (11.5 - 14.5 %) 17.0 H Plt Count (130 - 400 /CUMM) 392 MPV (7.4 - 10.4 FL) 8.1 Gran % (42.2 - 75.2 %) 88.8 H Lymphocytes % (20.5 - 51.1 %) 6.6 L Monocytes % (1.7 - 9.3 %) 4.2 Eosinophils % (0 - 5 %) 0.3 Basophils % (0.0 - 2.0 %) 0.1 Absolute Granulocytes (1.4 - 6.5 /CUMM) 13.4 H Absolute Lymphocytes (1.2 - 3.4 /CUMM) 1.0 L Absolute Monocytes (0.10 - 0.60 /CUMM) 0.6 Absolute Eosinophils (0.0 - 0.7 /CUMM) 0 Absolute Basophils (0.0 - 0.2 /CUMM) 0 Imaging/Other Studies: 09/22/17: EKG- ST @ 101, nl axis, nl intervals, without acute ischemia. 09/22/17: CT ABD & PELVIS W IV CONTRAST- IMPRESSION: 1. Continued signs of pancreatitis with peripancreatic effusions and peripancreatic stranding. Dilated pancreatic duct. 2. Resolution of the pseudocyst. 3. Considerable inflammatory reaction in the lesser sac. (*Dr. Thomas of [facility] to review this CT & compare it with the last CT at [facility]). 09/22/17: XRY-PORTABLE CHEST XRAY- Normal chest. 09/23/17: US-LIMITED ABDOMEN- 1. Pancreatic head is indistinct and appears edematous, consistent with patient's history of acute pancreatitis. No significant pancreatic ductal dilatation 2 mm, or peripancreatic fluid collection is seen. 2. Status post cholecystectomy. No focal fluid collection in the gallbladder fossa. Common bile duct at upper limits of normal, measuring 0.7 cm. 3. Normal liver.
== END 2017-09-25 12:13 | DRG 439 ==
LOC: ERH 15:41 → ERHI 22:07 → 2NB 22:07 → ERHI 09-23 09:12 → ENRESERV 09-23 13:12 → ENTRNSPT 09-23 14:07 → EDTRNSPTSTS 09-23 14:22 → 2NB 09-23 14:49 → CMPTRNSPT 09-23 14:55 → ENPENDDIS 09-25 10:01 → 2NB 09-25 12:13
PROVIDERS: Internal Medicine; Physician Assistant Medical
DX: K85.90 Acute pancreatitis without necrosis or infection, unspecified (principal); Z68.41 Body mass index [BMI] 40.0-44.9, adult; E46 Unspecified protein-calorie malnutrition; K86.3 Pseudocyst of pancreas; E66.01 Morbid (severe) obesity due to excess calories; E78.5 Hyperlipidemia, unspecified; K86.1 Other chronic pancreatitis; G47.33 Obstructive sleep apnea (adult) (pediatric); F32.9 Major depressive disorder, single episode, unspecified; I10 Essential (primary) hypertension; J45.909 Unspecified asthma, uncomplicated; F41.9 Anxiety disorder, unspecified; Z86.718 Personal history of other venous thrombosis and embolism; Z90.49 Acquired absence of other specified parts of digestive tract; Z88.2 Allergy status to sulfonamides; Z88.8 Allergy status to other drugs, medicaments and biological substances
CPT/HCPCS: 2NBSP; ERO; 36415; 36592; 71045; 74177; 81003; 82436; 93005; 93010; 96374; 96375; J0131; J1644; J2405; J2550; J7508

== ENCOUNTER 2017-10-03 08:33 | Inpatient (IN) | payer OTHER ==
[~2017-10-03] VITALS: Ht 157.5 cm; Wt 98.9 kg
--- NOTE | 2017-10-03 08:45 | ED GI/GU/ABDOMINAL COMPLAINT ---
History of Present Illness General Chief Complaint: Nausea, Vomiting, Diarrhea Stated Complaint: NAUSEA Source: patient, old records Exam Limitations: no limitations Vital Signs & Intake/Output Vital Signs & Intake/Output Vital Signs Date Time Temp Pulse Resp B/P B/P Pulse O2 O2 Flow FiO2 Mean Ox Delivery Rate 10/03 0837 98.2 112 15 126/88 98 Room Air Room Air Allergies Coded Allergies: Sulfa (Sulfonamide Antibiotics) (Intermediate, RASH 10/03/17) valsartan (From DIOVAN) (RETAIN WATER PER PT 10/03/17) Reconcile Medications Amlodipine Besylate 5 MG TABLET 2 TAB PO DAILY BP (Reported) Clonazepam 1 MG TABLET 1 TAB PO BIDP PRN ANXIETY (Reported) Duloxetine HCl 60 MG CAPSULE.DR 2 CAP PO DAILY MENTAL HEALTH/NERVE PAIN ( Reported) Metoprolol Succinate 100 MG TAB.ER.24H 1 TAB PO DAILY HEART/BP (Reported) Montelukast Sodium 10 MG TABLET 1 TAB PO DAILY ALLERGIES (Reported) Ondansetron HCl (Zofran) 4 MG TABLET 1 TAB PO Q6-8P PRN Nausea . Spironolactone 100 MG TABLET 1 TAB PO DAILY HTN (Reported) Trazodone HCl 50 MG TABLET 1-2 TAB PO QPM SLEEP (Reported) Triage Note: PT TO ED FOR C/C OF NAUSEA AND MID ABD PAIN THAT STARTED LAST NIGHT. PT RECENTLY DIAGNOSED AND ADMITTED FOR PANCREATITIS. PT DENIES VOMITING OR DIARRHEA. Triage Nurses Notes Reviewed? yes ? N Is pt currently ? No HPI: Lasted patient developed periumbilical abdominal pain radiating through to the back. The pain is sharp and stabbing in nature. The pain is 10 out of 10. Positive nausea and vomiting. Similar symptoms in the past from pancreatitis. Patient states that she has been following her low-fat diet. Patient is unable to tolerate anything by mouth. Past History Travel History Traveled to [place] past 21 day No Medical History Any Pertinent Medical History? see below for history Neurological: NONE EENT: Lasik surgery Cardiovascular: hypertension, hyperlipidemia Respiratory: asthma, obstructive sleep apnea Gastrointestinal: pancreatitis Hepatic: ? 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 Age 67. MOTHER, , Age 34; Cause: MVA (motor vehicle accident). PGA, , Age 85; Cause: Colon cancer. Relation not specified for: *No pertinent family history Hx Contributory? No Review of Systems Review of Systems Constitutional: Reports: no symptoms. EENTM: Reports: no symptoms. Respiratory: Reports: no symptoms. Cardiovascular: Reports: no symptoms. GI: Reports: see HPI, abdominal pain, nausea, vomiting. Genitourinary: Reports: no symptoms. Musculoskeletal: Reports: no symptoms. Skin: Reports: no symptoms. Neurological/Psychological: Reports: no symptoms. Hematologic/Endocrine: Reports: no symptoms. Immunologic/Allergic: Reports: no symptoms. All Other Systems: Reviewed and Negative Physical Exam Physical Exam General Appearance: well developed/nourished, alert, awake, anxious, moderate distress Head: atraumatic, normal appearance Eyes: Bilateral: PERRL, EOMI. Ears, Nose, Throat, Mouth: hearing grossly normal, DRY MUCOSA Neck: normal inspection, supple, full range of motion Respiratory: normal breath sounds, chest non-tender, no respiratory distress, lungs clear Cardiovascular: regular rate/rhythm, normal peripheral pulses Gastrointestinal: normal bowel sounds, soft, tenderness, NO REBOUND OR GUARDING Back: normal inspection, normal range of motion Extremities: normal range of motion Neurologic/Psych: no motor/sensory deficits, awake, alert, oriented x 3, normal gait, normal mood/affect Skin: intact, normal color, warm/dry Core Measures ACS in differential dx? No Sepsis Present: No Sepsis Focused Exam Completed? No Progress Differential Diagnosis: gastritis, hepatitis, ischemic bowel, inflamm bowel dis, pancreatitis Plan of Care: Orders Procedure Date/time Status Nothing by Mouth 10/03 L Active ED Holding Orders 10/03 1035 Active Admit to inpatient 10/03 1035 Active Vital Signs 10/03 1035 Active Code Status 10/03 1035 Active URINALYSIS 04/22 0838 Active LIPASE 10/03 837 Complete ETHANOL 10/03 837 Complete COMPREHENSIVE METABOLIC PANEL 10/03 837 Complete CBC WITHOUT DIFFERENTIAL 10/03 837 Complete AMYLASE 10/03 837 Complete Current Medications Sig/Anay Start time Last Medication Dose Stop Time Status Admin Ondansetron HCl 4 MG ONCE ONE 10/03 09 CAN (Zofran) 10/03 900 Laboratory Tests 10/03/17 0940: Anion Gap 12, Estimated GFR > 60, BUN/Creatinine Ratio 12.0, Glucose 118 H, Calcium 8.9, Total Bilirubin 0.8, AST 12 L, ALT 18, Alkaline Phosphatase 76, Total Protein 6.0 L, Albumin 3.3 L, Globulin 2.7, Albumin/Globulin Ratio 1.2, Amylase 370 H, Lipase 3821 H, Serum Alcohol < 10.0 10/03/17906: CBC w Diff MAN DIFF ORDERED, RBC 4.88, MCV 81.9, MCH 27.2, MCHC 33.2, RDW 17.0 H, MPV 8.4, Gran % 86.5 H, Lymphocytes % 8.3 L, Monocytes % 4.4, Eosinophils % 0.6, Basophils % 0.2, Absolute Granulocytes 9.6 H, Absolute Lymphocytes 0.9 L, Absolute Monocytes 0.5, Absolute Eosinophils 0.1, Absolute Basophils 0, Platelet Estimate VERIFIED BY SMEAR, Anisocytosis 1+ Initial ED EKG: none Comments: Pain is better controlled after IV morphine and her nausea is under control after IV Phenergan. Patient states that the pain was actually worse than it was when she was admitted last time. At this point the patient will be admitted for acute pancreatitis. Departure Departure Disposition: STILL A PATIENT Condition: Stable Clinical Impression Primary Impression: Pancreatitis Referrals: Bienvenido Csaarez MD (PCP/Family) Departure Forms: Customer Survey General Discharge Information Admission Note Spoke With: Bert Monge MD Documentation of Exam: Documentation of any treatments & extenuating circumstances including Concerns Regarding Discharge (functional status, medication knowledge or non-compliance, living conditions, etc.) that warrant an admission rather than observation: [ Nothing by mouth, IV fluids, IV antiemetics, IV pain control, gastroenterology consultation]
[2017-10-03 09:31] LABS: ABSOLUTE BASOPHIL COUNT 0 /CUMM (0.0-0.2); ABSOLUTE EOSINOPHIL COUNT 0.1 /CUMM (0.0-0.7); ABSOLUTE GRANULOCYTE CT 9.6 /CUMM (1.4-6.5); ABSOLUTE LYMPH COUNT 0.9 /CUMM (1.2-3.4); ABSOLUTE MONOCYTE COUNT 0.5 /CUMM (0.10-0.60); BASOPHIL % 0.2 % (0.0-2.0); EOSINOPHIL % 0.6 % (0-5); GRANULOCYTE % 86.5 % (42.2-75.2); HEMATOCRIT 39.9 % (37-47); MEAN CORPUSCULAR HGB 27.2 PG (27.0-31.0); MEAN CORPUSCULAR HGB CONC 33.2 G/DL (33.0-37.0); MEAN CORPUSCULAR VOLUME 81.9 FL (81.0-99.0); MEAN PLATELET VOLUME 8.4 FL (7.4-10.4); PLATELET COUNT 336 /CUMM (130-400); RED BLOOD CELL CT 4.88 /CUMM (4.20-5.40); WHITE BLOOD CELL COUNT 11.1 /CUMM (4.8-10.8)
--- NOTE | 2017-10-03 11:22 | History & Physical ---
Sydney BRUNNER,[facility] 10/03/17 1121: General Information and HPI MD Statement: I have seen and personally examined CR VASQUEZ and documented this H&P. The patient is a 47 year old F who presented with a patient stated chief complaint of [abdominal pain]. Source of Information: patient, old records Exam Limitations: no limitations History of Present Illness: Patient is a 47-year-old woman with a past medical history of HTN, HLD, anxiety, depression, panic attacks, a questionable clotting abnormality with previous DVT treated with Coumadin and not currently on anti-coagulation, choledocholithiasis , recurrent pancreatitis and necrotic pancreatitis secondary to gall stone s/p cholecystectomy, complicated by pseudocyst. Status post cystogastrostomy procedure in July 2017, and recent admission 2 weeks ago to [facility] for pancreatitis likely related to alcohol and fatty meal consumption. She presents with sudden onset of lower sternal discomfort and epigastric discomfort started around 10 PM last night. Abdominal discomfort started last night when she was resting in bed reading a book. The discomfort was initially 3/10 in intensity but increased progressively which cause her to wake up at 2 AM. The pain was dull in character and radiated to involve the lower rib cage and her back. She also had nausea without vomiting and abdominal bloating. Her abdominal pain increased to about 7/10 intensity around 8 PM this morning and she decided to come to the ER. She denies recent alcohol intake and states she has the following a low fat diet. She has lost about 70 pounds since May when she started having problems with her pancreas. She denies diarrhea or constipation and her last bowel movement was Wednesday 2 days ago. She was scheduled to see design leader Dr. Schaeffer around 10/22/2017. She denies fevers, chills or weakness. She denies chest pain, palpitations or shortness of breath. She denies cough or wheezing. She denies dysuria or hematuria. She would like to see the jeep driver during this admission. Allergies/Medications Allergies: Coded Allergies: Sulfa (Sulfonamide Antibiotics) (Intermediate, RASH 10/03/17) valsartan (From DIOVAN) (RETAIN WATER PER PT 10/03/17) Home Med list Amlodipine Besylate 5 MG TABLET 2 TAB PO DAILY BP (Reported) Clonazepam 1 MG TABLET 1 TAB PO BIDP PRN ANXIETY (Reported) Duloxetine HCl 60 MG CAPSULE.DR 2 CAP PO DAILY MENTAL HEALTH/NERVE PAIN ( Reported) Metoprolol Succinate 100 MG TAB.ER.24H 1 TAB PO DAILY HEART/BP (Reported) Montelukast Sodium 10 MG TABLET 1 TAB PO DAILY ALLERGIES (Reported) Ondansetron HCl (Zofran) 4 MG TABLET 1 TAB PO Q6-8P PRN Nausea . Spironolactone 100 MG TABLET 1 TAB PO DAILY HTN (Reported) Trazodone HCl 50 MG TABLET 1-2 TAB PO QPM SLEEP (Reported) Past History Travel History Traveled to [place] past 21 day No Medical History Neurological: NONE EENT: Lasik surgery Cardiovascular: hypertension, hyperlipidemia Respiratory: asthma, obstructive sleep apnea Gastrointestinal: pancreatitis Hepatic: ? mild fatty liver Renal: NONE Musculoskeletal: NONE Psychiatric: anxiety, depression, panic attacks Endocrine: obesity Blood Disorders: coagulopathy, DVT (LLE 1993, post AP) Cancer(s): NONE HUMAN RESOURCES TRAINEE/Reproductive: NONE History of MRSA: No History of VRE: No History of CDIFF: No Influenza Vaccine: 03/14/17 Surgical History Surgical History: appendectomy (1993), cholecystectomy (05/26/17: Lap CCKY), LASIC EYE SURGERY Past Family/Social History Family History Relations & Conditions if any FATHER (A&W). Age 67. MOTHER, , Age 34; Cause: MVA (motor vehicle accident). PGA, , Age 85; Cause: Colon cancer. Psychosocial History Who Do You Live With? spouse Services at Home: None Primary Language: Fijian Smoking Status: Never Smoked ETOH Use: denies use Illicit Drug Use: denies illicit drug use Living Will? yes Power of Line Mechanic/HCP? no Functional Ability ADLs Independent: dressing, eating, toileting, bathing. Ambulation: independent IADLs Independent: shopping, housework, finances, food prep, telephone, transportation , medication admin. Review of Systems Review of Systems Constitutional: Denies: chills, diaphoresis, fever. EENTM: Denies: blurred vision, double vision. Cardiovascular: Denies: chest pain, palpitations, syncope. Exam & Diagnostic Data Last 24 Hrs of Vital Signs/I&O Vital Signs Date Time Temp Pulse Resp B/P B/P Pulse O2 O2 Flow FiO2 Mean Ox Delivery Rate 10/03 1140 98.1 90 20 126/80 97 Room Air 10/03 1049 97.7 93 16 122/59 98 Room Air 10/03 0837 98.2 112 15 126/88 98 Room Air Room Air Intake & Output 10/03 1600 10/03 0800 10/03 0000 Intake Total 1000 Output Total Balance 1000 Intake, IV 1000 Patient 218 lb Weight Weight Bed scale Measurement Method Physical Exam General Appearance Alert, Oriented X3, Cooperative, No Acute Distress Skin No Rashes, No Breakdown Skin Temp/Moisture Exam: Warm/Dry Sepsis Skin Exam (color): Normal for Ethnicity HEENT Atraumatic, PERRLA, EOMI, Mucous Membr. moist/pink Neck Supple, No JVD, No thryomegaly Lymphatic Cervical nl Cardiovascular Regular Rate, Normal S1, Normal S2, No Murmurs Lungs Clear to Auscultation, Normal Air Movement Abdomen Normal Bowel Sounds, Soft, No Hepatospenomegaly, No Masses, epigastric and right upper quadrant region. No rebound tenderness Neurological Normal Speech, Strength at 5/5 X4 Ext, Normal Tone Extremities No Edema, Normal Pulses, No Tenderness/Swelling Vascular Normal Pulses, Pulses Symmetrical Diagnostic Data EKG Results QTc 473 milliseconds. Normal sinus rhythm. Assessment/Plan Assessment: Patient is a 47-year-old woman with a past medical history of HTN, HLD, anxiety, depression, panic attacks, a questionable clotting abnormality with previous DVT treated with Coumadin and not currently on anti-coagulation, choledocholithiasis , recurrent pancreatitis and necrotic pancreatitis secondary to gall stone s/p cholecystectomy, complicated by pseudocyst. Status post cystogastrostomy procedure in July 2017, and recent admission 2 weeks ago to [facility] for pancreatitis likely related to alcohol and fatty meal consumption. She presents with a sudden onset of abdominal pain last night associated with nausea. Physical exam shows tender epigastric and right upper quadrant regions and she has an elevated lipase of 3821 with amylase being 370. Her symptoms are consistent with recurrent acute pancreatitis. The etiology of her current episode of pancreatitis is unclear at this time as the patient denies recent alcohol use or new medications. In addition, her triglycerides are normal at 121. Abdominal imaging done on 09/22/17 showed resolution of pseudocyst with persistent signs of pancreatitis with peripancreatic effusions and peripancreatic stranding with a dilated pancreatic duct and Inflammation reaction in the lesser sac. Her pancreatic pseudocyst had resolved at that time. She'll be admitted for treatment of recurrent pancreatitis and gastroenterology consultation will be obtained. Problem list 1. Recurrent acute pancreatitis 2. Leukocytosislikely reactive 3. Hypertension 4. History of anxiety and depression 5. Mild asthma/reactive airway disease Plan 1. Recurrent acute pancreatitis * Admit to general medicine * IV Ringer's lactate at 200 mL an hour 2 L then continue at 1 50 mL an hour * Nothing by mouth for now * IV promethazine 12.5 mg every 6 hours when necessary for nausea (patient states that Zofran doesn't work well for her) * Pain control with IV morphine 4 mg every 4 hours when necessary for severe pain, by mouth oxycodone 5 mg every 6 hours when necessary for moderate pain and Tylenol for mild pain * Gastroenterology consultation * Monitor electrolytes * And on troponin to this morning labs 2. Leukocytosislikely reactive * Monitor CBC in the a.m. 3. Hypertension * Continue home medications metoprolol, spironolactone and amlodipine 4. History of anxiety and depression * Continue duloxetine 120 mg daily, clonazepam 1 mg twice a day when necessary for anxiety and trazodone 100 mg daily at night for sleep 5. Mild asthma/reactive airway disease * Continue Singulair 10 mg daily * Albuterol inhaler 2 puffs every 4-6 hours when necessary for shortness of breath DVT prophylaxis Alps and lovenox Diet: Nothing by mouth for now CODE STATUS: Full code As Ranked By This Provider Problem List: 1. Acute pancreatitis 2. Pseudocyst of pancreas 3. Abdominal pain Core Measures/Misc (02/28) Acute Coronary Syndrome ACS Diagnosis: No Congestive Heart Failure Congestive Heart Failure Diagnosis No Cerebrovascular Accident CVA/TIA Diagnosis: No VTE (View Protocol) VTE Risk Factors Acute Medical Illness No Mechanical VTE Prophylaxis d/t N/A MechProphylax Ordered No VTE Pharm Prophylaxis d/t NA PharmProphylax ordered Sepsis (View protocol) Sepsis Present: No Bert Monge 10/03/17 1310: Attending MD Review Statement Attending Statement Attending MD Statement: examined this patient, discuss w/resident/PA/COLORIST, agreed w/resident/PA/COLORIST, discussed with family, reviewed EMR data (avail), discussed with nursing, discussed with case mgmt, reviewed images, amended to note Attending Assessment/Plan: 47-year-old female with past medical history significant for HTN, anxiety, depression, dyslipidemia, remote history of DVT in left lower extremity, was diagnosed to have clotting abnormality currently not on anticoagulation, recurrent pancreatitis secondary to gall stone s/p cholecystectomy, complicated by pseudocyst s/p Cyst Gastrostomy. Patient recently discharged from [facility] about [address] scan shows resolution of pseudocyst. Patient comes today with recurrent abdominal pain. She has elevated lipase of > 3821, mild leukocytosis which appears reactive. She has acute recurrent pancreatitis. 1 Acute recurrent pancreatitis 2 Reactive leukocytosis - Admit to general medicine - Continue aggressive hydration with lactated Ringer 200 mL per hour for 2 L - NPO, Adequate pain control - Gastroenterology consult - Continue her oral antihypertensives. - DVT prophylaxis.
[2017-10-03 11:40] VITALS: BP 126/80
[2017-10-03 21:24] VITALS: BP 112/60
[2017-10-04 06:24] VITALS: BP 114/64
[2017-10-04 08:49] LABS: ABSOLUTE BASOPHIL COUNT 0 /CUMM (0.0-0.2); ABSOLUTE EOSINOPHIL COUNT 0.3 /CUMM (0.0-0.7); ABSOLUTE GRANULOCYTE CT 5.2 /CUMM (1.4-6.5); ABSOLUTE LYMPH COUNT 1.3 /CUMM (1.2-3.4); ABSOLUTE MONOCYTE COUNT 0.6 /CUMM (0.10-0.60); BASOPHIL % 0.4 % (0.0-2.0); EOSINOPHIL % 4.2 % (0-5); GRANULOCYTE % 69.3 % (42.2-75.2); MEAN CORPUSCULAR HGB 26.8 PG (27.0-31.0); MEAN CORPUSCULAR VOLUME 83.8 FL (81.0-99.0); MEAN PLATELET VOLUME 8.5 FL (7.4-10.4); PLATELET COUNT 227 /CUMM (130-400); RBC DISTRIBUTION WIDTH 17.3 % (11.5-14.5); RED BLOOD CELL CT 3.88 /CUMM (4.20-5.40); WHITE BLOOD CELL COUNT 7.6 /CUMM (4.8-10.8)
[2017-10-04 09:04] LABS: HEMATOCRIT 32.5 % (37-47)
--- NOTE | 2017-10-04 10:16 | PN- Housestaff ---
Subjective Follow-up For: Recurrent pancreatitis Subjective: No acute events overnight. Patient states minimal pain at this time. Currently npo but will try clears. Review of Systems Constitutional: Reports: see HPI. Objective Last 24 Hrs of Vital Signs/I&O Vital Signs Date Time Temp Pulse Resp B/P B/P Pulse O2 O2 Flow FiO2 Mean Ox Delivery Rate 10/04 0913 80 124/72 10/04 0913 80 124/72 10/04 0624 98.6 81 18 114/64 96 10/03 2124 98.4 90 18 112/60 96 Room Air 10/03 1639 90 126/80 Intake & Output 10/04 1600 10/04 0800 10/04 0000 Intake Total 1600 600 Output Total Balance 1600 600 Intake, IV 1600 600 Physical Exam General Appearance: Alert, Oriented X3, Cooperative Cardiovascular: Regular Rate, Normal S1, Normal S2 Lungs: Clear to Auscultation, Normal Air Movement Abdomen: epigastric and right upper quadrant tenderness to palpation Extremities: 2+ radial pulses Current Medications: Current Medications Sig/Anay Start time Last Medication Dose Route Stop Time Status Admin Acetaminophen 650 MG Q6P PRN 10/03 1230 AC PO Amlodipine Besylate 10 MG DAILY 10/04 0900 AC 10/04 PO 0913 Clonazepam 1 MG BID PRN 10/03 1430 AC PO 10/10 1429 Docusate Sodium 100 MG DAILY NEEDED PRN 10/04 1015 AC PO Duloxetine HCl 120 MG DAILY 10/03 1430 AC 10/04 PO 0913 Enoxaparin Sodium 40 MG DAILY 10/04 0900 AC 10/04 SC 0914 Lactated Ringer's 1,000 ML Q6H 10/04 0000 CAN IV Lactated Ringer's 1,000 ML Q6H 10/03 1230 DC IV 10/03 2329 Metoprolol Succinate 100 MG DAILY 10/03 1430 AC 10/04 PO 0913 Montelukast Sodium 10 MG DAILY 10/03 1430 AC 10/04 PO 0913 Morphine Sulfate 4 MG Q4P PRN 10/03 1230 AC 10/04 IV 0414 Oxycodone HCl 5 MG Q6 PRN 10/03 1230 AC 10/03 PO 2051 Promethazine HCl 12.5 MG Q6P PRN 10/03 1400 AC IV 10/10 1359 Senna 187 MG DAILY NEEDED 10/04 1015 AC 10/04 PO 1034 Sodium Chloride 1,000 ML .Q5H 10/03 1415 AC 10/04 IV 1034 Spironolactone 100 MG DAILY 10/03 1445 AC 10/04 PO 09 Trazodone HCl 25 MG QPM 10/03 2100 AC 10/03 PO 2050 Trazodone HCl 50 MG .STK-MED ONE 10/03 2046 DC PO 10/04 2047 Last 24 Hrs of Lab/Dangelo Results Last 24 Hrs of Labs/Mics: Laboratory Tests 10/04/17 0740: Anion Gap 10, Estimated GFR > 60, BUN/Creatinine Ratio 16.0, CBC w Diff NO MAN DIFF REQ, RBC 3.88 L, MCV 83.8, MCH 26.8 L, MCHC 32.0 L, RDW 17.3 H, MPV 8.5 , Gran % 69.3, Lymphocytes % 17.6 L, Monocytes % 8.5, Eosinophils % 4.2, Basophils % 0.4, Absolute Granulocytes 5.2, Absolute Lymphocytes 1.3, Absolute Monocytes 0.6, Absolute Eosinophils 0.3, Absolute Basophils 0 Assessment/Plan Assessment: 47-year-old F with a past medical history of HTN, HLD, anxiety, depression, panic attacks, a questionable clotting abnormality with previous DVT treated with Coumadin and not currently on anti-coagulation, choledocholithiasis, recurrent pancreatitis with necrotic pancreatitis secondary to gall stone s/p cholecystectomy, complicated by pseudocyst status post cystogastrostomy procedure in July 2017 and recently ended 2 weeks ago returning for recurrent pancreatitis. # Recurrent acute pancreatitis Amylase 370 Lipase 3821 -Advanced to clear liquid diet -Continue with normal saline as hospital does not have lactate Ringers -f/u GI recommendations -Monitor electrolytes #Leukocytosislikely reactive - resolved -cont to monitor #Hypertension -Continue metoprolol, spironolactone and amlodipine #History of anxiety and depression -Continue duloxetine, clonazepam, trazodone #Mild asthma/reactive airway disease -Continue Singulair, albuterol #Constipation #DVT prophylaxis - lovenox #FULL CODE Problem List: 1. Recurrent pancreatitis Pain Ratin Pain Location: RUQ Pain Goal: Pain 4 or less Pain Plan: pathway Tomorrow's Labs & Rationales: bep lipase
--- NOTE | 2017-10-04 11:53 | PN- Att Addend ---
Attending Addendum Attending Brief Note Patient seen and examined, feels ok. Still has abd pain but improved than before. Denies feeling nauseous, would like to try clears. Vital Signs Date Time Temp Pulse Resp B/P B/P Pulse O2 O2 Flow FiO2 Mean Ox Delivery Rate 10/04 0913 80 124/72 10/04 0913 80 124/72 10/04 0624 98.6 81 18 114/64 96 10/03 2124 98.4 90 18 112/60 96 Room Air 10/03 1639 90 126/80 on exam; aox3, nad. cv; s1,s2, rrr resp; clear abd; soft, tender epigastrium, luq, bs+ ext; no edema Laboratory Tests 10/04 10/03 0740 1200 Chemistry Sodium (137 - 145 mmol/L) 140 Potassium (3.5 - 5.1 mmol/L) 4.1 Chloride (98 - 107 mmol/L) 109 H Carbon Dioxide (22 - 30 mmol/L) 21 L Anion Gap (5 - 16) 10 BUN (7 - 17 mg/dL) 8 Creatinine (0.5 - 1.0 mg/dL) 0.5 Estimated GFR (>60 ml/min) > 60 BUN/Creatinine Ratio (7 - 25 %) 16.0 Hematology CBC w Diff NO MAN DIFF REQ WBC (4.8 - 10.8 /CUMM) 7.6 RBC (4.20 - 5.40 /CUMM) 3.88 L Hgb (12.0 - 16.0 G/DL) 10.4 L Hct (37 - 47 %) 32.5 L MCV (81.0 - 99.0 FL) 83.8 MCH (27.0 - 31.0 PG) 26.8 L MCHC (33.0 - 37.0 G/DL) 32.0 L RDW (11.5 - 14.5 %) 17.3 H Plt Count (130 - 400 /CUMM) 227 MPV (7.4 - 10.4 FL) 8.5 Gran % (42.2 - 75.2 %) 69.3 Lymphocytes % (20.5 - 51.1 %) 17.6 L Monocytes % (1.7 - 9.3 %) 8.5 Eosinophils % (0 - 5 %) 4.2 Basophils % (0.0 - 2.0 %) 0.4 Absolute Granulocytes (1.4 - 6.5 /CUMM) 5.2 Absolute Lymphocytes (1.2 - 3.4 /CUMM) 1.3 Absolute Monocytes (0.10 - 0.60 /CUMM) 0.6 Absolute Eosinophils (0.0 - 0.7 /CUMM) 0.3 Absolute Basophils (0.0 - 0.2 /CUMM) 0 Urines Urine Color (YEL,AMB,STR) YEL Urine Clarity (CLEAR) CLEAR Urine pH (5.0 - 8.0) 6.0 Ur Specific [place] (1.001 - 1.035) 1.010 Urine Protein (NEG,<30 MG/DL) NEG Urine Ketones (NEG) 15 H Urine Nitrite (NEG) NEG Urine Bilirubin (NEG) NEG Urine Urobilinogen (0.1 - 1.0 EU/dl) 0.2 Ur Leukocyte Esterase (NEG) NEG Ur Microscopic EXAM NOT REQUIRED Urine Hemoglobin (NEG) NEG Urine Glucose (N MG/DL) NEG A/P; 47 y/o F with pmh sig for HTN, HLD, anxiety, depression, panic attacks, a 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 Status post cystogastrostomy procedure in July 2017, s/p pancreatic stent placement and removal admitted with abd pain 2/2 to acute pancreatitis. Patient currently on IV fluids. We'll start the patient on clear liquid diet. GI evaluation is pending. Otherwise vital signs are stable. Would continue the current medications. Would advance diet slowly as she tolerates and follow further GI recommendations. DVT prophylaxis: Lovenox.
[2017-10-04 14:50] VITALS: BP 104/58
--- NOTE | 2017-10-04 15:20 | Cons- Gastroenterology ---
General Information and HPI Consulting Request Date of Consult: 10/03/17 Requested By: Bert Monge MD Reason for Consult: Abdominal pain, nausea, vomiting, recurrent pancreatitis. Source of Information: patient, old records Exam Limitations: no limitations History of Present Illness: Ms. Kwok is a 47 year old female with multiple medical problems including an attack of gallstone pancreatitis in May of last year s/p ERCP, s/p CCY and ultimate pseudocyst formation s/p endoscopic drainage by a cystgastrostomy who presented to today with complaints of abdominal pain, nausea and vomiting consistent with her prior attacks of pancreatitis. She had her cystgastrotomy tube removed at the end of August at [place] after a repeat MRI showed resolution of her pseudocyst. she did well for a few weeks thereafter but about 10 days ago she had another flare of pancreatitis for which she was readmitted here and was treated with conservative measures and was able to be discharged home after a short hospital stay. She also had a repeat ct scan on that admission which didn 't show any recurrent pseudocyst formation or any other fluid collections. She was doing relatively well at home, but over the past few days she has again experinenced a recurrence of her abdominal pain associated with bilious vomiting without hematemsis. The episode has been consistent with her other attacks in terms of quality and location of the pain. She has been having relatively normal bowel movements and she denies any loose stool, rectal bleeding, or marcos colored stool and she has also been without any dark urine. She denies any recent fevers. In the ER she was afebrile and hemodynamically stable, but she was noted to have a marked elevated lipase and she was admitted for recurrent pancreatitis, started on lactated ringers and bowel rest. Allergies/Medications Allergies: Coded Allergies: Sulfa (Sulfonamide Antibiotics) (Intermediate, RASH 10/03/17) valsartan (From DIOVAN) (RETAIN WATER PER PT 10/03/17) Home Med List: Amlodipine Besylate 5 MG TABLET 2 TAB PO DAILY BP (Reported) Clonazepam 1 MG TABLET 1 TAB PO BIDP PRN ANXIETY (Reported) Duloxetine HCl 60 MG CAPSULE.DR 2 CAP PO DAILY MENTAL HEALTH/NERVE PAIN ( Reported) Metoprolol Succinate 100 MG TAB.ER.24H 1 TAB PO DAILY HEART/BP (Reported) Montelukast Sodium 10 MG TABLET 1 TAB PO DAILY ALLERGIES (Reported) Ondansetron HCl (Zofran) 4 MG TABLET 1 TAB PO Q6-8P PRN Nausea . Spironolactone 100 MG TABLET 1 TAB PO DAILY HTN (Reported) Trazodone HCl 50 MG TABLET 1-2 TAB PO QPM SLEEP (Reported) Current Medications: Current Medications Sig/Anay Start time Last Medication Dose Route Stop Time Status Admin Acetaminophen 650 MG Q6P PRN 10/03 1230 AC PO Lactated Ringer's 1,000 ML Q6H 10/04 0000 CAN IV Lactated Ringer's 1,000 ML Q6H 10/03 1230 DC IV 10/03 2329 Morphine Sulfate 4 MG Q4P PRN 10/03 1230 AC 10/03 IV 1321 Morphine Sulfate 0 .STK-MED ONE 10/03 0917 DC .ROUTE Morphine Sulfate 4 MG ONCE ONE 10/03 0900 DC 10/03 IV 10/03 0901 0924 Ondansetron HCl 4 MG ONCE ONE 10/03 0900 CAN IV 10/03 0901 Oxycodone HCl 5 MG Q6 PRN 10/03 1230 AC PO Promethazine HCl 12.5 MG Q6P PRN 10/03 1400 AC IV 10/10 1359 Promethazine HCl 0 .STK-MED ONE 10/03 0918 DC .ROUTE Promethazine HCl 25 MG ONCE ONE 10/03 0900 DC 10/03 IV 10/03 0901 0924 Sodium Chloride 1,000 ML .Q5H 10/03 1415 AC IV Sodium Chloride 1,000 ML BOLUS ONE 10/03 0900 DC 10/03 IV 10/03 0959 0924 Past History Travel History Traveled to [place] past 21 day No Medical History Blood Transfusion Hx: No Neurological: NONE EENT: Lasik surgery Cardiovascular: hypertension, hyperlipidemia Respiratory: asthma, obstructive sleep apnea Gastrointestinal: pancreatitis Hepatic: ? 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 Age 67. MOTHER, , Age 34; Cause: MVA (motor vehicle accident). PGA, , Age 85; Cause: Colon cancer. Psychosocial History Where Do You Live? Home Who Do You Live With? spouse Services at Home: None Primary Language: Citizen Of [place] Smoking Status: Never Smoked ETOH Use: denies use Illicit Drug Use: denies illicit drug use Living Will? yes Power of Building Architect/HCP? no Functional Ability ADLs Independent: dressing, eating, toileting, bathing. Ambulation: independent IADLs Independent: shopping, housework, finances, food prep, telephone, transportation , medication admin. Review of Systems Review of Systems Constitutional: Reports: malaise, weakness. Denies: chills, diaphoresis, fever. EENTM: Denies: no symptoms. Cardiovascular: Reports: edema, peripheral edema. Denies: chest pain. Respiratory: Reports: short of breath. Denies: cough, hemoptysis, orthopnea. GI: Reports: see HPI. Genitourinary: Denies: no symptoms. Musculoskeletal: Denies: no symptoms. Skin: Denies: no symptoms. Neurological/Psychological: Denies: no symptoms. Hematologic/Endocrine: Denies: no symptoms. Immunologic/Allergic: Denies: no symptoms. All Other Systems: Reviewed and Negative Exam & Diagnostic Data Vital Signs and I&O Vital Signs Date Time Temp Pulse Resp B/P B/P Pulse O2 O2 Flow FiO2 Mean Ox Delivery Rate 10/03 1140 98.1 90 20 126/80 97 Room Air 10/03 1049 97.7 93 16 122/59 98 Room Air 10/03 0837 98.2 112 15 126/88 98 Room Air Room Air Intake & Output 10/03 1600 10/03 0400 10/02 1600 10/02 0400 10/01 1600 10/01 0400 Intake Total 1010 Output Total 400 Balance 610 Intake, IV 1010 Intake, Oral 0 Number 0 Bowel Movements Output, Urine 400 Patient 218 lb Weight Weight Bed scale Measurement Method Physical Exam General Appearance: well developed/nourished, alert, awake, mild distress Head: atraumatic, normal appearance Eyes: Bilateral: normal appearance. Ears, Nose, Throat: normal pharynx, normal ENT inspection Neck: normal inspection, supple, full range of motion Respiratory: normal breath sounds, chest non-tender, no respiratory distress, decreased breath sounds Cardiovascular: regular rate/rhythm Gastrointestinal: normal bowel sounds, soft, tenderness Rectal: deferred Back: normal inspection, normal range of motion Extremities: normal inspection, no edema Neurologic/Psych: no motor/sensory deficits, awake, alert, oriented x 3 Results Pertinent Lab Results: Laboratory Tests 10/03 10/03 1200 0940 Chemistry Sodium (137 - 145 mmol/L) 138 Potassium (3.5 - 5.1 mmol/L) 3.5 Chloride (98 - 107 mmol/L) 105 Carbon Dioxide (22 - 30 mmol/L) 22 Anion Gap (5 - 16) 12 BUN (7 - 17 mg/dL) 6 L Creatinine (0.5 - 1.0 mg/dL) 0.5 Estimated GFR (>60 ml/min) > 60 BUN/Creatinine Ratio (7 - 25 %) 12.0 Glucose (65 - 99 mg/dL) 118 H Calcium (8.4 - 10.2 mg/dL) 8.9 Total Bilirubin (0.2 - 1.3 mg/dL) 0.8 AST (14 - 36 U/L) 12 L ALT (9 - 52 U/L) 18 Alkaline Phosphatase (<127 U/L) 76 Troponin I (< 0.11 ng/ml) Pending Total Protein (6.3 - 8.2 g/dL) 6.0 L Albumin (3.5 - 5.0 g/dL) 3.3 L Globulin (1.9 - 4.2 gm/dL) 2.7 Albumin/Globulin Ratio (1.1 - 2.2 %) 1.2 Triglycerides (<150 mg/dL) 121 Amylase (30 - 110 U/L) 370 H Lipase (23 - 300 U/L) 3821 H Toxicology Serum Alcohol (<10 MG/DL) < 10.0 Urines Urine Color (YEL,AMB,STR) YEL Urine Clarity (CLEAR) CLEAR Urine pH (5.0 - 8.0) 6.0 Ur Specific [place] (1.001 - 1.035) 1.010 Urine Protein (NEG,<30 MG/DL) NEG Urine Ketones (NEG) 15 H Urine Nitrite (NEG) NEG Urine Bilirubin (NEG) NEG Urine Urobilinogen (0.1 - 1.0 EU/dl) 0.2 Ur Leukocyte Esterase (NEG) NEG Ur Microscopic EXAM NOT REQUIRED Urine Hemoglobin (NEG) NEG Urine Glucose (N MG/DL) NEG 10/03 0907 Hematology CBC w Diff MAN DIFF ORDERED WBC (4.8 - 10.8 /CUMM) 11.1 H RBC (4.20 - 5.40 /CUMM) 4.88 Hgb (12.0 - 16.0 G/DL) 13.3 Hct (37 - 47 %) 39.9 MCV (81.0 - 99.0 FL) 81.9 MCH (27.0 - 31.0 PG) 27.2 MCHC (33.0 - 37.0 G/DL) 33.2 RDW (11.5 - 14.5 %) 17.0 H Plt Count (130 - 400 /CUMM) 336 MPV (7.4 - 10.4 FL) 8.4 Gran % (42.2 - 75.2 %) 86.5 H Lymphocytes % (20.5 - 51.1 %) 8.3 L Monocytes % (1.7 - 9.3 %) 4.4 Eosinophils % (0 - 5 %) 0.6 Basophils % (0.0 - 2.0 %) 0.2 Absolute Granulocytes (1.4 - 6.5 /CUMM) 9.6 H Absolute Lymphocytes (1.2 - 3.4 /CUMM) 0.9 L Absolute Monocytes (0.10 - 0.60 /CUMM) 0.5 Absolute Eosinophils (0.0 - 0.7 /CUMM) 0.1 Absolute Basophils (0.0 - 0.2 /CUMM) 0 Platelet Estimate (ADEQUATE) VERIFIED BY SMEAR Anisocytosis 1+ Imaging/Other Studies: SERVICE DATE: 08/20/17 EXAM TYPE: MRI - MRI-ABD W/O-W MANJEET EXAMINATION: MR ABDOMEN WITHOUT AND WITH CONTRAST CLINICAL INFORMATION: Follow-up of pancreatic fluid collections. Pseudocyst. Status post cyst gastrostomy. COMPARISON: CTA of the chest dated 07/26/2017. CT scan of the abdomen and pelvis dated 07/18/2017. MRI scan of the abdomen dated 06/21/2017 and 06/10/2017 TECHNIQUE: An MRI scan of the abdomen was performed using multiple imaging sequences and imaging planes. As per the MRCP protocol, heavily T2-weighted 3-D high-resolution MRCP sequences were obtained in the coronal plane along with thin and thick slab coronal images and coronal MIP reconstructions on the technologist workstation under concurrent physician supervision. Gadavist 10 mL intravenous was given and postcontrast enhanced dynamic evaluation was performed. FINDINGS: LUNG BASES: There is a moderate size left-sided layering pleural effusion with mild enhancement and thickening of the parietal pleura. There is associated volume loss and consolidation or atelectasis seen in the left lower lobe. Findings are similar to the previous CT scan. LIVER, GALLBLADDER, BILIARY TREE: Liver normal size and signal. No focal cystic or solid mass or intrahepatic or extrahepatic ductal dilatation. Hepatic and portal veins patent. The gallbladder is surgically absent. No focal fluid collection is seen in the gallbladder fossa. The common bile duct measures 0.6 cm proximally and 0.3 cm distally. Portions of the common bile duct at the junction of the middle and distal third are obscured by the artifact related to the cyst gastrostomy. No abnormal filling defect is seen within the visualized portions of the common bile duct. The cystic duct remnant appears unremarkable. PANCREAS: The previously seen pancreatic cystic collections are no longer visualized. There is some artifact seen related to the cyst gastrostomy. No residual pancreatic fluid collection is noted. The pancreatic duct in the pancreatic head is unremarkable. Mild dilatation of the pancreatic duct in the pancreatic body and tail is seen, measuring up to 0.6 cm in diameter. Small portion of the pancreatic duct in the pancreatic head is obscured by artifact related to the cyst gastrostomy. No suspicious mass or peripancreatic stranding/edema. SPLEEN: Normal size and appearance. Splenic vein patent. ADRENAL GLANDS: There is a tiny 0.5 cm T2 bright nonenhancing cyst adjacent to the right adrenal apex. The adrenal glands are otherwise unremarkable. KIDNEYS: Kidneys bilaterally symmetric in size and function. There is a 2.1 cm upper pole left renal T2 bright nonenhancing cyst in the upper pole of the left kidney. No focal mass, hydronephrosis, or perinephric stranding. BOWEL LOOPS: There is a tiny fat-containing umbilical hernia. Included small and large bowel loops are decompressed and unremarkable. LYMPHOVASCULAR STRUCTURES: Abdominal aorta normal in caliber. No periaortic collections. No abdominal adenopathy or free fluid collection. BONES: Mild degenerative disc disease is seen at the lumbosacral junction. Small Tarlov cyst is seen in the upper sacrum. IMPRESSION: 1. Resolution of previously seen cystic fluid collection status post cystgastrostomy placement. Mild dilatation of the pancreatic duct in the pancreatic body and tail is seen, likely residual from previous obstruction by the large pancreatic cyst. 2. Status post cholecystectomy with no evidence of biliary dilatation. 3. Persistent moderate left-sided pleural effusion with associated left lower lobe atelectasis o'clock, similar to prior CT scan. 4. Small left renal cyst and tiny cyst adjacent to the apex of the right adrenal gland apex 5. Small fat-containing umbilical hernia. SERVICE DATE: 09/22/17 EXAM TYPE: CAT - CT ABD & PELVIS W IV CONTRAST EXAMINATION: CT ABDOMEN AND PELVIS WITH CONTRAST CLINICAL INFORMATION: 47-year-old female patient with right upper quadrant and epigastric pain, nausea, and vomiting. Fever. Presumptive diagnoses: Pancreatitis, cholangitis. COMPARISON: CT exams of the abdomen on 05/21/2017, 06/09/2017, 06/15/2017, and 07/18/2017. (Complications of pancreatitis). TECHNIQUE: Multidetector volumetric imaging was performed of the abdomen and pelvis following IV administration of 94 mL of Optiray 320 intravenous contrast. Sagittal and coronal reformatted images were obtained on the technologist's workstation. DLP: 924 mGy-cm FINDINGS: Importer Exporter: The patient's gallbladder has been surgically removed. The abdominal gas pattern is normal. LUNG BASES: A small left pleural effusion is seen which has increased in volume since 07/18/2017. LIVER, GALLBLADDER, AND BILIARY TREE: Normal. The gallbladder has been removed. The common bile duct measures 9 mm in the distal portion. PANCREAS: The body and tail of the pancreas have returned to normal size. However, the pancreatic duct measures 7 mm in the pancreatic body. There is fat stranding surrounding the head of the pancreas. The pseudocyst diagnosed in June and July has resolved. There are still signs of pancreatitis with effusions located at the mesenteric root and inflammatory reaction in the right anterior pararenal space. There is considerable inflammatory reaction in the lesser sac. A small amount of ascites is present in the cul-de-sac. SPLEEN: Unremarkable. ADRENAL GLANDS: Unremarkable. KIDNEYS AND URETERS: The kidneys are normal in size, shape, and attenuation. No hydronephrosis, hydroureter, or calculi seen. No perinephric stranding. A 2.8 cm cyst arises from the upper pole of the left kidney. BLADDER: Unremarkable. GASTROINTESTINAL TRACT: The small and large bowel are unremarkable. The appendix is unremarkable. ABDOMINAL WALL: No significant hernia is appreciated. LYMPH NODES: Normal. VASCULAR: No venous thrombosis. No unusual focal cluster of varices are seen adjacent to the distal aorta proximal to the bifurcation. The significance of this is uncertain. Series 602, image 67. Series 2, image 45. PELVIC VISCERA: Unremarkable. OSSEOUS STRUCTURES: Unremarkable. IMPRESSION: 1. Continued signs of pancreatitis with peripancreatic effusions and peripancreatic stranding. Dilated pancreatic duct. 2. Resolution of the pseudocyst. 3. Considerable inflammatory reaction in the lesser sac. Assessment/Plan Assessment/Recommendations: Assessment: Ms. Kwok is a 47 year old female with gs pancreatitis several months ago which has been complicated by a pseudocyst requiring a cystgastrostomy and recurrent attacks in spite of resolution of the pseudocyst. Her ct scan on her last admission showed resolution of the pseudocyst, but it did show significant pancreatic inflammation and the pancreatic duct was noted to be dilated so I feel it is possible that she may have developed a pancreatic duct stricture accounting for her recurrent attacks considering her GB has now been removed and she doesn't have any other typical risk factors for pancreatitis. Considering she has had recurrent attacks without any other obvious etiology it is possible she could have another condition leading to recurrent attacks, but my over suspicion for auto-immune pancratitis or hereditary pancreatitis quite low considering her first episode of pancreatitis occured secondary at the age of 47 and this was clearly secondary to gallstones. Elevated tg levels or medications could also be considered, but I feel this is less likely as well. Recommendations: 1. Keep NPO 2. IV hydration with lactated ringers solutions at a rate of 200 cc/hr x 24-48 hours and then re-evaluated volume status 3. Analgesia as needed 4. Would check an MRCP/MRI with pancreatic mass protocol to evaluate for any structural lesions that may be accounting for her dilated PD and recurrent attacks of pancreatitis and if appropriate consideration may be given for an ERCP if a significant stricture is seen (if she improves quickly this can potentially be done as an outpatient. 5. Anti-emetics as needed I will continue to follow this patient and make further recommendations based on her clinical course and results of further imaging if and when it is done. Consult Acknowledgment - Thank you for your consult request.
[2017-10-04 20:10] VITALS: BP 112/68
[2017-10-05 06:58] VITALS: BP 118/66
--- NOTE | 2017-10-05 07:10 | PN- Housestaff ---
Subjective Follow-up For: Recurrent pancreatitis Complaints: pain abdomen Subjective: Patient seen and examined at bedside. No overnight events. Complains of 2 x 10 upper abdominal pain on and off. She denies nausea, vomiting, fever. Review of Systems Constitutional: Reports: no symptoms, see HPI. Objective Last 24 Hrs of Vital Signs/I&O Vital Signs Date Time Temp Pulse Resp B/P B/P Pulse O2 O2 Flow FiO2 Mean Ox Delivery Rate 10/05 938 116/80 10/05 0839 118/60 10/05 0658 98.0 84 18 118/66 100 10/04 2009 98.6 86 18 112/68 96 Room Air 10/04 1450 98.5 88 20 104/58 99 Room Air Intake & Output 10/05 1600 10/05 0800 10/05 0000 Intake Total 1720 720 Output Total 700 Balance 1720 20 Intake, IV 1600 600 Intake, Oral 120 120 Number 1 0 Bowel Movements Output, Urine 700 Physical Exam General Appearance: Alert, Oriented X3, Cooperative, No Acute Distress Cardiovascular: Regular Rate, Normal S1, Normal S2, No Murmurs Lungs: Clear to Auscultation Abdomen: Soft, No Tenderness Neurological: Strength at 5/5 X4 Ext, Normal Tone, Sensation Intact, Cranial Nerves 3-12 NL Extremities: No Edema Current Medications: Current Medications Sig/Anay Start time Last Medication Dose Route Stop Time Status Admin Acetaminophen 650 MG Q6P PRN 10/03 1230 AC PO Amlodipine Besylate 10 MG DAILY 10/04 0900 AC 10/05 PO 0939 Clonazepam 1 MG BID PRN 10/03 1430 AC PO 10/10 1429 Docusate Sodium 100 MG DAILY NEEDED PRN 10/04 1015 AC PO Duloxetine HCl 120 MG DAILY 10/03 1430 AC 10/05 PO 0940 Enoxaparin Sodium 40 MG DAILY 10/04 0900 AC 10/05 SC 0938 Metoprolol Succinate 100 MG DAILY 10/03 1430 AC 10/05 PO 0939 Montelukast Sodium 10 MG DAILY 10/03 1430 AC 10/05 PO 0939 Morphine Sulfate 4 MG Q4P PRN 10/03 1230 AC 10/05 IV 0020 Oxycodone HCl 5 MG Q6 PRN 10/03 1230 AC 10/04 PO 1718 Patient Medication 1 ED ONE ONE 10/04 1715 DC Teaching ED 10/04 1716 Promethazine HCl 12.5 MG Q6P PRN 10/03 1400 AC IV 10/10 1359 Senna 187 MG DAILY NEEDED 10/04 1015 AC 10/04 PO 1034 Sodium Chloride 1,000 ML .Q6H40M 10/03 1415 AC 10/05 IV 0639 Spironolactone 100 MG DAILY 10/03 1445 AC 10/05 PO 0939 Trazodone HCl 25 MG QPM 10/03 2100 AC 10/04 PO 2016 Last 24 Hrs of Lab/Dangelo Results Last 24 Hrs of Labs/Mics: Laboratory Tests 10/05/1713: Anion Gap 11, Estimated GFR > 60, BUN/Creatinine Ratio 10.0, Lipase 127 Assessment/Plan Assessment: 47-year-old F with a past medical history of HTN, HLD, anxiety, depression, panic attacks, a questionable clotting abnormality with previous DVT treated with Coumadin and not currently on anti-coagulation, choledocholithiasis, recurrent pancreatitis with necrotic pancreatitis secondary to gall stone s/p cholecystectomy, complicated by pseudocyst status post cystogastrostomy procedure in July 2017 and recently ended 2 weeks ago returning for recurrent pancreatitis. Assessment and plan # Recurrent acute pancreatitis Amylase 370 Lipase 3821----> 127 -Patient diet and advance to full liquid. We will continue Ringer lactate at 150 mL per hour. -Patient is planned for MRCP tomorrow. -f/u GI recommendations -Monitor electrolytes #Leukocytosislikely reactive - resolved -cont to monitor #Hypertension -Continue metoprolol, spironolactone and amlodipine #History of anxiety and depression -Continue duloxetine, clonazepam, trazodone #Mild asthma/reactive airway disease -Continue Singulair, albuterol #Constipation #DVT prophylaxis - lovenox #FULL CODE Problem List: 1. Recurrent pancreatitis Pain Ratin Pain Location: Upper abdomen Pain Goal: Remain pain free Pain Plan: Tylenol, morphine Tomorrow's Labs & Rationales: cbc
--- NOTE | 2017-10-05 11:28 | PN- Att Addend ---
Attending Addendum Attending Brief Note Patient seen and examined, slightly feeling better. Still having significant abdominal pain but slightly improved than before. She wants to try full liquid diet today. Vital Signs Date Time Temp Pulse Resp B/P B/P Pulse O2 O2 Flow FiO2 Mean Ox Delivery Rate 10/05 0939 116/80 10/05 0939 118/60 10/05 0658 98.0 84 18 118/66 100 10/04 2009 98.6 86 18 112/68 96 Room Air 10/04 1450 98.5 88 20 104/58 99 Room Air on exam; aox3, nad. cv; s1,s2, rrr resp; clear abd; soft, less tenderness today, bs+ ext; no edema Laboratory Tests 10/05 612 Chemistry Sodium (137 - 145 mmol/L) 136 L Potassium (3.5 - 5.1 mmol/L) 3.8 Chloride (98 - 107 mmol/L) 103 Carbon Dioxide (22 - 30 mmol/L) 22 Anion Gap (5 - 16) 11 BUN (7 - 17 mg/dL) 4 L Creatinine (0.5 - 1.0 mg/dL) 0.4 L Estimated GFR (>60 ml/min) > 60 BUN/Creatinine Ratio (7 - 25 %) 10.0 Lipase (23 - 300 U/L) 127 A/P; 47 y/o F with pmh sig for HTN, HLD, anxiety, depression, panic attacks, a 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 Status post cystogastrostomy procedure in July 2017, s/p pancreatic stent placement and removal admitted with abd pain 2/2 to acute pancreatitis. Abdominal pain slightly better today. Patient wants to try full liquid diet. We will decrease the rate of IV fluids 150 mL an hour. Continue current pain management. Patient get MRCP tomorrow. Pending results, decision will be made about ERCP. Continue the rest of the medications. DVt px; Lovenox.
[2017-10-05 13:57] VITALS: BP 120/76
--- NOTE | 2017-10-05 14:47 | PN- Gastroenterology ---
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 She is currently doing well from a pain and diet standpoint and her decreasing BUN is a good prognostic sign and suggests she has been adequately hydrated so I am hopeful that she will be able to be discharged home shortly. Recommendations: 1. Advance diet as tolerated 2. Analgesia as needed 3. Maintenancy IVF 4. Check an MRCP/MRI with pancreatic mass protocol when available I will continue to follow this patient and make further recommendations based on her clinical course and results of the MRCP/MRI when it is performed. Problem List: 1. Pseudocyst of pancreas 2. Pancreatitis 3. Acute pancreatitis Subjective Subjective: pt feeling somewhat improved. she is tolerarting a liquid diet and her pain is under good control with oral pain medications. she is without any vomiting. Objective Vital Signs and I&Os Vital Signs Date Time Temp Pulse Resp B/P B/P Pulse O2 O2 Flow FiO2 Mean Ox Delivery Rate 10/05 1357 98.6 95 20 120/76 98 Room Air 10/05 0939 116/80 10/05 0939 118/60 10/05 0658 98.0 84 18 118/66 100 10/04 2009 98.6 86 18 112/68 96 Room Air 10/04 1450 98.5 88 20 104/58 99 Room Air Intake & Output 10/05 1600 10/05 0400 10/04 1600 10/04 0400 10/03 1600 10/03 0400 Intake Total 3970 720 3680 600 1010 Output Total 700 1200 400 Balance 3970 20 2480 600 610 Intake, IV 2900 600 3200 600 1010 Intake, Oral 1070 120 480 0 Number 2 0 0 Bowel Movements Output, Urine 700 1200 400 Patient 218 lb 218 lb Weight Weight Bed scale Measurement Method Physical Exam General Appearance: well developed/nourished, no apparent distress, comfortable Head: atraumatic Neck: normal inspection, supple, full range of motion Respiratory: normal breath sounds, chest non-tender, no respiratory distress Cardiovascular: regular rate/rhythm Abdomen: normal bowel sounds, soft, tenderness Back: normal inspection Extremities: no edema Skin: intact, normal color Current Medications: Current Medications Sig/Anay Start time Last Medication Dose Route Stop Time Status Admin Acetaminophen 650 MG Q6P PRN 10/03 1230 AC PO Amlodipine Besylate 10 MG DAILY 10/04 0900 AC 10/05 PO 0939 Clonazepam 1 MG BID PRN 10/03 1430 AC PO 10/10 1429 Docusate Sodium 100 MG DAILY NEEDED PRN 10/04 1015 AC PO Duloxetine HCl 120 MG DAILY 10/03 1430 AC 10/05 PO 0940 Enoxaparin Sodium 40 MG DAILY 10/04 0900 AC 10/05 SC 0938 Metoprolol Succinate 100 MG DAILY 10/03 1430 AC 10/05 PO 0939 Montelukast Sodium 10 MG DAILY 10/03 1430 AC 10/05 PO 0939 Morphine Sulfate 4 MG Q4P PRN 10/03 1230 AC 10/05 IV 0020 Oxycodone HCl 5 MG Q6 PRN 10/03 1230 AC 10/04 PO 1718 Patient Medication 1 ED ONE ONE 10/04 1715 DC Teaching ED 10/04 1716 Promethazine HCl 12.5 MG Q6P PRN 10/03 1400 AC IV 10/10 1359 Senna 187 MG DAILY NEEDED 10/04 1015 AC 10/04 PO 1034 Sodium Chloride 1,000 ML .Q6H40M 10/03 1415 AC 10/05 IV 1225 Spironolactone 100 MG DAILY 10/03 1445 AC 10/05 PO 0939 Trazodone HCl 25 MG QPM 10/03 2100 AC 10/04 PO 2015 Results Pertinent Lab Results: Laboratory Tests 10/05 10/04 0613 0740 Chemistry Sodium (137 - 145 mmol/L) 136 L 140 Potassium (3.5 - 5.1 mmol/L) 3.8 4.1 Chloride (98 - 107 mmol/L) 103 109 H Carbon Dioxide (22 - 30 mmol/L) 22 21 L Anion Gap (5 - 16) 11 10 BUN (7 - 17 mg/dL) 4 L 8 Creatinine (0.5 - 1.0 mg/dL) 0.4 L 0.5 Estimated GFR (>60 ml/min) > 60 > 60 BUN/Creatinine Ratio (7 - 25 %) 10.0 16.0 Lipase (23 - 300 U/L) 127 Hematology CBC w Diff NO MAN DIFF REQ WBC (4.8 - 10.8 /CUMM) 7.6 RBC (4.20 - 5.40 /CUMM) 3.88 L Hgb (12.0 - 16.0 G/DL) 10.4 L Hct (37 - 47 %) 32.5 L MCV (81.0 - 99.0 FL) 83.8 MCH (27.0 - 31.0 PG) 26.8 L MCHC (33.0 - 37.0 G/DL) 32.0 L RDW (11.5 - 14.5 %) 17.3 H Plt Count (130 - 400 /CUMM) 227 MPV (7.4 - 10.4 FL) 8.5 Gran % (42.2 - 75.2 %) 69.3 Lymphocytes % (20.5 - 51.1 %) 17.6 L Monocytes % (1.7 - 9.3 %) 8.5 Eosinophils % (0 - 5 %) 4.2 Basophils % (0.0 - 2.0 %) 0.4 Absolute Granulocytes (1.4 - 6.5 /CUMM) 5.2 Absolute Lymphocytes (1.2 - 3.4 /CUMM) 1.3 Absolute Monocytes (0.10 - 0.60 /CUMM) 0.6 Absolute Eosinophils (0.0 - 0.7 /CUMM) 0.3 Absolute Basophils (0.0 - 0.2 /CUMM) 0 10/03 10/03 1200 0940 Chemistry Sodium (137 - 145 mmol/L) 138 Potassium (3.5 - 5.1 mmol/L) 3.5 Chloride (98 - 107 mmol/L) 105 Carbon Dioxide (22 - 30 mmol/L) 22 Anion Gap (5 - 16) 12 BUN (7 - 17 mg/dL) 6 L Creatinine (0.5 - 1.0 mg/dL) 0.5 Estimated GFR (>60 ml/min) > 60 BUN/Creatinine Ratio (7 - 25 %) 12.0 Glucose (65 - 99 mg/dL) 118 H Calcium (8.4 - 10.2 mg/dL) 8.9 Total Bilirubin (0.2 - 1.3 mg/dL) 0.8 AST (14 - 36 U/L) 12 L ALT (9 - 52 U/L) 18 Alkaline Phosphatase (<127 U/L) 76 Troponin I (< 0.11 ng/ml) < 0.01 Total Protein (6.3 - 8.2 g/dL) 6.0 L Albumin (3.5 - 5.0 g/dL) 3.3 L Globulin (1.9 - 4.2 gm/dL) 2.7 Albumin/Globulin Ratio (1.1 - 2.2 %) 1.2 Triglycerides (<150 mg/dL) 121 Amylase (30 - 110 U/L) 370 H Lipase (23 - 300 U/L) 3821 H Toxicology Serum Alcohol (<10 MG/DL) < 10.0 Urines Urine Color (YEL,AMB,STR) YEL Urine Clarity (CLEAR) CLEAR Urine pH (5.0 - 8.0) 6.0 Ur Specific [place] (1.001 - 1.035) 1.010 Urine Protein (NEG,<30 MG/DL) NEG Urine Ketones (NEG) 15 H Urine Nitrite (NEG) NEG Urine Bilirubin (NEG) NEG Urine Urobilinogen (0.1 - 1.0 EU/dl) 0.2 Ur Leukocyte Esterase (NEG) NEG Ur Microscopic EXAM NOT REQUIRED Urine Hemoglobin (NEG) NEG Urine Glucose (N MG/DL) NEG 10/03 0907 Hematology CBC w Diff MAN DIFF ORDERED WBC (4.8 - 10.8 /CUMM) 11.1 H RBC (4.20 - 5.40 /CUMM) 4.88 Hgb (12.0 - 16.0 G/DL) 13.3 Hct (37 - 47 %) 39.9 MCV (81.0 - 99.0 FL) 81.9 MCH (27.0 - 31.0 PG) 27.2 MCHC (33.0 - 37.0 G/DL) 33.2 RDW (11.5 - 14.5 %) 17.0 H Plt Count (130 - 400 /CUMM) 336 MPV (7.4 - 10.4 FL) 8.4 Gran % (42.2 - 75.2 %) 86.5 H Lymphocytes % (20.5 - 51.1 %) 8.3 L Monocytes % (1.7 - 9.3 %) 4.4 Eosinophils % (0 - 5 %) 0.6 Basophils % (0.0 - 2.0 %) 0.2 Absolute Granulocytes (1.4 - 6.5 /CUMM) 9.6 H Absolute Lymphocytes (1.2 - 3.4 /CUMM) 0.9 L Absolute Monocytes (0.10 - 0.60 /CUMM) 0.5 Absolute Eosinophils (0.0 - 0.7 /CUMM) 0.1 Absolute Basophils (0.0 - 0.2 /CUMM) 0 Platelet Estimate (ADEQUATE) VERIFIED BY SMEAR Anisocytosis 1+
[2017-10-05 21:22] VITALS: BP 100/60
[2017-10-06 06:12] VITALS: BP 118/86
--- NOTE | 2017-10-06 07:12 | PN- Housestaff ---
Subjective Follow-up For: Recurrent pancreatitis Complaints: no complaints Subjective: No overnight events. Patient slept well. Denies abdominal pain, nausea, vomiting, shortness of breath. Review of Systems Constitutional: Reports: no symptoms, see HPI. Objective Last 24 Hrs of Vital Signs/I&O Vital Signs Date Time Temp Pulse Resp B/P B/P Pulse O2 O2 Flow FiO2 Mean Ox Delivery Rate 10/06 09 112/80 10/06 0918 112/80 10/06 0612 98.3 85 20 118/86 96 Room Air 10/05 212 98.6 87 18 100/60 98 Room Air Intake & Output 10/06 1600 10/06 0800 10/06 0000 Intake Total 1200 1200 1585 Output Total 900 Balance 1200 1200 685 Intake, IV 1200 1200 985 Intake, Oral 0 0 600 Number 0 0 Bowel Movements Output, Urine 900 Physical Exam General Appearance: Alert, Oriented X3, Cooperative, No Acute Distress Cardiovascular: Normal S1, Normal S2, No Murmurs Lungs: Normal Air Movement Abdomen: Soft, No Tenderness, No Hepatospenomegaly Neurological: Strength at 5/5 X4 Ext, Normal Tone, Sensation Intact Current Medications: Current Medications Sig/Anay Start time Last Medication Dose Route Stop Time Status Admin Acetaminophen 650 MG Q6P PRN 10/03 1230 AC PO Amlodipine Besylate 10 MG DAILY 10/04 09 10/06 PO 0919 Clonazepam 1 MG BID PRN 10/03 1430 AC 10/05 PO 10/10 1429 2105 Docusate Sodium 100 MG DAILY NEEDED PRN 10/04 1015 AC PO Duloxetine HCl 120 MG DAILY 10/03 1430 10/06 PO 0913 Enoxaparin Sodium 40 MG DAILY 10/04 0900 10/06 SC 0913 Metoprolol Succinate 100 MG DAILY 10/03 1430 10/06 PO 0918 Montelukast Sodium 10 MG DAILY 10/03 1430 10/06 PO 0914 Morphine Sulfate 4 MG Q4P PRN 10/03 1230 AC 10/05 IV 0020 Oxycodone HCl 5 MG Q6 PRN 10/03 1230 10/04 PO 1718 Patient Medication 1 ED ONE ONE 10/06 1100 DC 10/06 Teaching ED 10/06 1101 1055 Patient Medication 1 ED ONE ONE 10/05 1700 [place] Teaching ED 10/05 1701 Promethazine HCl 12.5 MG Q6P PRN 10/03 1400 AC IV 10/10 1359 Senna 187 MG DAILY NEEDED 10/04 1015 AC 10/04 PO 1034 Sodium Chloride 1,000 ML .Q6H40M 10/03 1415 AC 10/06 IV 0913 Spironolactone 100 MG DAILY 10/03 1445 AC 10/06 PO 0912 Trazodone HCl 25 MG QPM 10/03 2100 AC 10/05 PO 2105 Last 24 Hrs of Lab/Dangelo Results Last 24 Hrs of Labs/Mics: Laboratory Tests 10/06/17632: CBC w Diff NO MAN DIFF REQ, RBC 4.02 L, MCV 83.2, MCH 27.6, MCHC 33.2, RDW 17.1 H, MPV 8.7, Gran % 70.5, Lymphocytes % 16.3 L, Monocytes % 7.8, Eosinophils % 4.9, Basophils % 0.5, Absolute Granulocytes 4.9, Absolute Lymphocytes 1.1 L, Absolute Monocytes 0.5, Absolute Eosinophils 0.3, Absolute Basophils 0 Assessment/Plan Assessment: 47-year-old F with a past medical history of HTN, HLD, anxiety, depression, panic attacks, a questionable clotting abnormality with previous DVT treated with Coumadin and not currently on anti-coagulation, choledocholithiasis, recurrent pancreatitis with necrotic pancreatitis secondary to gall stone s/p cholecystectomy, complicated by pseudocyst status post cystogastrostomy procedure in July 2017 and recently ended 2 weeks ago returning for recurrent pancreatitis. Assessment and plan # Recurrent acute pancreatitis -Patient tolerated full liquid diet. She is on Ringer lactate 150 mL per hour. Patient plan for MRCP today as per gastroenterology. We will follow GI recommendation and MRCP report. -Monitor electrolytes #Leukocytosislikely reactive - resolved -cont to monitor #Hypertension -Continue metoprolol, spironolactone and amlodipine #History of anxiety and depression -Continue duloxetine, clonazepam, trazodone #Mild asthma/reactive airway disease -Continue Singulair, albuterol #Constipation #DVT prophylaxis - lovenox #FULL CODE Problem List: 1. Recurrent pancreatitis Pain Ratin Pain Location: NONE Pain Goal: Remain pain free Pain Plan: tylenol,morphine Tomorrow's Labs & Rationales: cbc,bep
[2017-10-06 08:37] LABS: ABSOLUTE BASOPHIL COUNT 0 /CUMM (0.0-0.2); ABSOLUTE EOSINOPHIL COUNT 0.3 /CUMM (0.0-0.7); ABSOLUTE GRANULOCYTE CT 4.9 /CUMM (1.4-6.5); ABSOLUTE LYMPH COUNT 1.1 /CUMM (1.2-3.4); ABSOLUTE MONOCYTE COUNT 0.5 /CUMM (0.10-0.60); BASOPHIL % 0.5 % (0.0-2.0); EOSINOPHIL % 4.9 % (0-5); GRANULOCYTE % 70.5 % (42.2-75.2); HEMATOCRIT 33.5 % (37-47); MEAN CORPUSCULAR HGB 27.6 PG (27.0-31.0); MEAN CORPUSCULAR HGB CONC 33.2 G/DL (33.0-37.0); MEAN CORPUSCULAR VOLUME 83.2 FL (81.0-99.0); MEAN PLATELET VOLUME 8.7 FL (7.4-10.4); PLATELET COUNT 269 /CUMM (130-400); RBC DISTRIBUTION WIDTH 17.1 % (11.5-14.5); RED BLOOD CELL CT 4.02 /CUMM (4.20-5.40)
--- NOTE | 2017-10-06 11:45 | PN- Att Addend ---
Attending Addendum Attending Brief Note Patient seen and examined, overall feeling better. She was able to tolerate full liquid diet yesterday without any increased pain, nausea or vomiting. Vital Signs Date Time Temp Pulse Resp B/P B/P Pulse O2 O2 Flow FiO2 Mean Ox Delivery Rate 10/06 918 112/80 10/06 0918 112/80 10/06 0612 98.3 85 20 118/86 96 Room Air 10/05 2122 98.6 87 18 100/60 98 Room Air 10/05 1357 98.6 95 20 120/76 98 Room Air on exam; aox3, nad. cv; s1,s2, rrr resp; clear abd; soft, nt, bs+ ext; no edema. Laboratory Tests 10/06 632 Hematology CBC w Diff NO MAN DIFF REQ WBC (4.8 - 10.8 /CUMM) 7.0 RBC (4.20 - 5.40 /CUMM) 4.02 L Hgb (12.0 - 16.0 G/DL) 11.1 L Hct (37 - 47 %) 33.5 L MCV (81.0 - 99.0 FL) 83.2 MCH (27.0 - 31.0 PG) 27.6 MCHC (33.0 - 37.0 G/DL) 33.2 RDW (11.5 - 14.5 %) 17.1 H Plt Count (130 - 400 /CUMM) 269 MPV (7.4 - 10.4 FL) 8.7 Gran % (42.2 - 75.2 %) 70.5 Lymphocytes % (20.5 - 51.1 %) 16.3 L Monocytes % (1.7 - 9.3 %) 7.8 Eosinophils % (0 - 5 %) 4.9 Basophils % (0.0 - 2.0 %) 0.5 Absolute Granulocytes (1.4 - 6.5 /CUMM) 4.9 Absolute Lymphocytes (1.2 - 3.4 /CUMM) 1.1 L Absolute Monocytes (0.10 - 0.60 /CUMM) 0.5 Absolute Eosinophils (0.0 - 0.7 /CUMM) 0.3 Absolute Basophils (0.0 - 0.2 /CUMM) 0 A/P; 47 y/o F with pmh sig for HTN, HLD, anxiety, depression, panic attacks, a 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 Status post cystogastrostomy procedure in July 2017, s/p pancreatic stent placement and removal admitted with abd pain 2/2 to recurrent acute pancreatitis. Pt to get MRCP. Will follow on the results. Continue IVfs. Will d/w GI after the MRI. Continue the rest of the meds. DVT px; Lovenox. Dispo: Pending MRI.
[2017-10-06 14:47] VITALS: BP 114/68
--- NOTE | 2017-10-06 15:29 | PN- Gastroenterology ---
Assessment/Plan GI Assessment/Recommendations: Assessment: Ms. Kwok is a 47-year-old female admitted with recurrent pancreatitis of uncertain etiology, but I suspect she may have a structural abnormality of her pancreatic duct from her prior attacks. She is currently symptomatically improved and is tolerating a liquid diet I'm hopeful her diet will be able to be advanced and she can be discharged home within the next 1-2 days. If the MRCP shows significant pancreatic duct pathology it may be reasonable to transfer her back to [place] for intervention. Alternaitvely if she continues to do well she can follow up with her GI interventionalist at [place] as an outpatient. Recommendations; 1. Follow up MRCP 2. Diet as tolerated 3. Analgesia as needed and attempt to car changer to oral pain medications. 4. Follow lytes and replete as needed. 5. If she is tolearting a diet without IV pain medication consideration should be given to discharge her home in the next 1-2 days with outpatient follow-up. I will sign off at this time and as the GI be reconsult for any new GI issues that may arise during this hospitalization. Problem List: 1. Pancreatitis 2. Abdominal pain 3. Nausea & vomiting Subjective Subjective: Patient feeling well today. she has been advanced to a full liquid diet which she is tolerating. She has not had any significant vomiting and her pain is under good control. She is awaiting an MRCP to evaluate her pancreatic and bile ducts. Objective Vital Signs and I&Os Vital Signs Date Time Temp Pulse Resp B/P B/P Pulse O2 O2 Flow FiO2 Mean Ox Delivery Rate 10/06 1447 99.1 88 18 114/68 94 Room Air 10/06 0919 112/80 10/06 0918 112/80 10/06 0612 98.3 85 20 118/86 96 Room Air 10/05 2122 98.6 87 18 100/60 98 Room Air Intake & Output 10/06 1600 10/06 0400 10/05 1600 10/05 0400 10/04 1600 10/04 0400 Intake Total 2400 1585 3970 720 3680 600 Output Total 416 834 4874 Balance 2400 685 3970 20 2480 600 Intake, IV 2400 985 2900 600 3200 600 Intake, Oral 0 600 1070 120 480 Number 0 0 2 0 Bowel Movements Output, Urine 916 891 1597 Patient 218 lb Weight Physical Exam General Appearance: well developed/nourished, no apparent distress, comfortable Head: atraumatic, normal appearance Neck: normal inspection, supple Respiratory: normal breath sounds, chest non-tender, no respiratory distress Cardiovascular: regular rate/rhythm Abdomen: normal bowel sounds, soft, tenderness Extremities: no edema Current Medications: Current Medications Sig/Anay Start time Last Medication Dose Route Stop Time Status Admin Acetaminophen 650 MG Q6P PRN 10/03 1230 AC PO Amlodipine Besylate 10 MG DAILY 10/04 0900 AC 10/06 PO 0919 Clonazepam 1 MG BID PRN 10/03 1430 AC 10/05 PO 10/10 1429 2105 Docusate Sodium 100 MG DAILY NEEDED PRN 10/04 1015 AC PO Duloxetine HCl 120 MG DAILY 10/03 1430 AC 10/06 PO 0913 Enoxaparin Sodium 40 MG DAILY 10/04 0900 10/06 SC 0913 Metoprolol Succinate 100 MG DAILY 10/03 1430 AC 10/06 PO 0918 Montelukast Sodium 10 MG DAILY 10/03 1430 10/06 PO 0914 Morphine Sulfate 4 MG Q4P PRN 10/03 1230 AC 10/05 IV 0020 Oxycodone HCl 5 MG Q6 PRN 10/03 1230 AC 10/04 PO 1718 Patient Medication 1 ED ONE ONE 10/06 1100 DC 10/06 [facility] ED 10/06 1101 1055 Patient Medication 1 ED ONE ONE 10/[address] [facility] ED 10/05 1701 Promethazine HCl 12.5 MG Q6P PRN 10/03 1400 AC IV 10/10 1359 Senna 187 MG DAILY NEEDED 10/04 1015 AC 10/04 PO 1034 Sodium Chloride 1,000 ML .Q6H40M 10/03 1415 AC 10/06 IV 0913 Spironolactone 100 MG DAILY 10/03 1445 AC 10/06 PO 0912 Trazodone HCl 25 MG QPM 10/03 2100 AC 10/05 PO 2105 Results Pertinent Lab Results: Laboratory Tests 10/06 10/05 0633 0613 Chemistry Sodium (137 - 145 mmol/L) 136 L Potassium (3.5 - 5.1 mmol/L) 3.8 Chloride (98 - 107 mmol/L) 103 Carbon Dioxide (22 - 30 mmol/L) 22 Anion Gap (5 - 16) 11 BUN (7 - 17 mg/dL) 4 L Creatinine (0.5 - 1.0 mg/dL) 0.4 L Estimated GFR (>60 ml/min) > 60 BUN/Creatinine Ratio (7 - 25 %) 10.0 Lipase (23 - 300 U/L) 127 Hematology CBC w Diff NO MAN DIFF REQ WBC (4.8 - 10.8 /CUMM) 7.0 RBC (4.20 - 5.40 /CUMM) 4.02 L Hgb (12.0 - 16.0 G/DL) 11.1 L Hct (37 - 47 %) 33.5 L MCV (81.0 - 99.0 FL) 83.2 MCH (27.0 - 31.0 PG) 27.6 MCHC (33.0 - 37.0 G/DL) 33.2 RDW (11.5 - 14.5 %) 17.1 H Plt Count (130 - 400 /CUMM) 269 MPV (7.4 - 10.4 FL) 8.7 Gran % (42.2 - 75.2 %) 70.5 Lymphocytes % (20.5 - 51.1 %) 16.3 L Monocytes % (1.7 - 9.3 %) 7.8 Eosinophils % (0 - 5 %) 4.9 Basophils % (0.0 - 2.0 %) 0.5 Absolute Granulocytes (1.4 - 6.5 /CUMM) 4.9 Absolute Lymphocytes (1.2 - 3.4 /CUMM) 1.1 L Absolute Monocytes (0.10 - 0.60 /CUMM) 0.5 Absolute Eosinophils (0.0 - 0.7 /CUMM) 0.3 Absolute Basophils (0.0 - 0.2 /CUMM) 0 10/04 0740 Chemistry Sodium (137 - 145 mmol/L) 140 Potassium (3.5 - 5.1 mmol/L) 4.1 Chloride (98 - 107 mmol/L) 109 H Carbon Dioxide (22 - 30 mmol/L) 21 L Anion Gap (5 - 16) 10 BUN (7 - 17 mg/dL) 8 Creatinine (0.5 - 1.0 mg/dL) 0.5 Estimated GFR (>60 ml/min) > 60 BUN/Creatinine Ratio (7 - 25 %) 16.0 Hematology CBC w Diff NO MAN DIFF REQ WBC (4.8 - 10.8 /CUMM) 7.6 RBC (4.20 - 5.40 /CUMM) 3.88 L Hgb (12.0 - 16.0 G/DL) 10.4 L Hct (37 - 47 %) 32.5 L MCV (81.0 - 99.0 FL) 83.8 MCH (27.0 - 31.0 PG) 26.8 L MCHC (33.0 - 37.0 G/DL) 32.0 L RDW (11.5 - 14.5 %) 17.3 H Plt Count (130 - 400 /CUMM) 227 MPV (7.4 - 10.4 FL) 8.5 Gran % (42.2 - 75.2 %) 69.3 Lymphocytes % (20.5 - 51.1 %) 17.6 L Monocytes % (1.7 - 9.3 %) 8.5 Eosinophils % (0 - 5 %) 4.2 Basophils % (0.0 - 2.0 %) 0.4 Absolute Granulocytes (1.4 - 6.5 /CUMM) 5.2 Absolute Lymphocytes (1.2 - 3.4 /CUMM) 1.3 Absolute Monocytes (0.10 - 0.60 /CUMM) 0.6 Absolute Eosinophils (0.0 - 0.7 /CUMM) 0.3 Absolute Basophils (0.0 - 0.2 /CUMM) 0
--- NOTE | 2017-10-06 17:23 | MRI REPORT ---
EXAMINATION: MR CHOLANGIOPANCREATOGRAPHY CLINICAL INFORMATION: 47-year-old female, clinically known acute pancreatitis. MRCP is requested. COMPARISON: CT of the abdomen and pelvis done on 09/22/2017. TECHNIQUE: Multiplanar, multi sequential noncontrast MR images of the abdomen/MRCP is obtained. FINDINGS: LIVER: No discrete focal abnormalities visualized on this nonenhanced study. GALLBLADDER, BILIARY TREE: The gallbladder is surgically absent. The biliary tree is decompressed. The common bile duct measures approximately 0.6 cm at its maximum dimension, shows progressive smooth distal tapering without evidence of any filling defect. PANCREAS: Concordant with recent CT scan of the abdomen and pelvis done on 09/22/2017, the head of the pancreas shows focal abnormal signal in the form of T1 hypointensity, may represent residual changes of pancreatitis. The pancreatic duct appears lobulated, dilated throughout the body and tail of the pancreas, measures 0.7 cm at its maximum dimension. The duct in the region of the head of the pancreas appear attenuated possibly related to pancreatitis. There is no peripancreatic fluid collection present. SPLEEN: Unremarkable. ADRENAL GLANDS AND KIDNEYS: Approximately 3 cm maximum dimension lobulated T1 hypointense T2 hyperintensity noted at the superior anterior cortex of the left kidney consistent with an incidental cyst. This is similar to prior CT study. Otherwise both kidneys are unremarkable. There is no adrenal mass noted on either side. URETERS AND BLADDER: The visualized part of both ureters are decompressed. The urinary bladder is not included within the [id number] and accordingly not evaluated. BOWEL LOOPS: The visualized bowel loops appear decompressed. LYMPHOVASCULAR STRUCTURES: No pathologically enlarged lymphadenopathy identified within the abdomen. IMPRESSION: Morphologically abnormal pancreas, consistent with clinically known pancreatitis. Specific note is made of abnormal lobulated dilated pancreatic duct throughout the body and tail of the pancreas measuring 0.7 cm at its maximum dimension. Surgically absent gallbladder and decompressed biliary tree.
[2017-10-06 21:28] VITALS: BP 110/70
[2017-10-07 06:50] VITALS: BP 125/67
--- NOTE | 2017-10-07 07:09 | PN- Housestaff ---
Rey BRUNNER,Clemencia 10/07/17 0708: Subjective Follow-up For: Recurrent pancreatitis Complaints: no complaints Subjective: Overnight patient had 5 episodes of loose watery stool not mixed with blood. Slept well. Denies abdominal pain, nausea, vomiting. Review of Systems Constitutional: Reports: no symptoms. Cardiovascular: Reports: no symptoms. Respiratory: Reports: no symptoms. Gastrointestinal: Reports: diarrhea. Objective Last 24 Hrs of Vital Signs/I&O Vital Signs Date Time Temp Pulse Resp B/P B/P Pulse O2 O2 Flow FiO2 Mean Ox Delivery Rate 10/07 0650 98.0 84 20 125/67 98 Room Air 10/06 2128 98.1 88 18 110/70 98 10/06 1447 99.1 88 18 114/68 94 Room Air 10/06 0919 112/80 10/06 0918 112/80 Intake & Output 10/07 1600 10/07 0800 10/07 0000 Intake Total 600 500 Output Total Balance 600 500 Intake, IV 600 500 Intake, Oral 0 Number 2 0 Bowel Movements Physical Exam General Appearance: Alert, Oriented X3, Cooperative, No Acute Distress Cardiovascular: Regular Rate, Normal S1, Normal S2, No Murmurs Lungs: Clear to Auscultation Abdomen: Normal Bowel Sounds, Soft, No Tenderness, No Hepatospenomegaly Neurological: Strength at 5/5 X4 Ext, Normal Tone, Sensation Intact, Cranial Nerves 3-12 NL Extremities: No Edema Current Medications: Current Medications Sig/Anay Start time Last Medication Dose Route Stop Time Status Admin Acetaminophen 650 MG Q6P PRN 10/03 1230 AC PO Amlodipine Besylate 10 MG DAILY 10/04 09 AC 10/06 PO 0919 Clonazepam 1 MG BID PRN 10/03 1430 AC 10/05 PO 10/10 1429 2105 Docusate Sodium 100 MG DAILY NEEDED PRN 10/04 1015 AC PO Duloxetine HCl 120 MG DAILY 10/03 1430 AC 10/06 PO 0913 Enoxaparin Sodium 40 MG DAILY 10/04 899 AC 10/06 SC 0913 Metoprolol Succinate 100 MG DAILY 10/03 1430 AC 10/06 PO 0918 Montelukast Sodium 10 MG DAILY 10/03 1430 AC 10/06 PO 0914 Morphine Sulfate 4 MG Q4P PRN 10/03 1230 AC 10/05 IV 0020 Oxycodone HCl 5 MG Q6 PRN 10/03 1230 AC 10/04 PO 1718 Patient Medication 1 ED ONE ONE 10/06 1100 DC 10/06 Teaching ED 10/06 1101 1055 Promethazine HCl 25 MG .STK-MED ONE 10/07 2039 DC IM 10/06 2040 Promethazine HCl 12.5 MG Q6P PRN 10/03 1400 AC 10/06 IV 10/10 1359 2051 Senna 187 MG DAILY NEEDED 10/04 1015 AC 10/04 PO 1034 Sodium Chloride 1,000 ML .[id number] 10/03 1415 AC 10/06 IV 2249 Spironolactone 100 MG DAILY 10/03 1445 AC 10/06 PO 0912 Trazodone HCl 25 MG QPM 10/03 2100 AC 10/06 PO 204 Last 24 Hrs of Lab/Dangelo Results Last 24 Hrs of Labs/Mics: Laboratory Tests 10/07/17 0600: Sodium Pending, Potassium Pending, Chloride Pending, Carbon Dioxide Pending, Anion Gap Pending, BUN Pending, Creatinine Pending, BUN/Creatinine Ratio Pending , CBC w Diff Pending, WBC Pending, RBC Pending, Hgb Pending, Hct Pending, MCV Pending, MCH Pending, MCHC Pending, RDW Pending, Plt Count Pending, MPV Pending Microbiology 10/07 699 STOOL: Clostridium difficile Toxin A & B - RECD 10/07 699 STOOL: Stool Culture - RECD Assessment/Plan Assessment: 47-year-old F with a past medical history of HTN, HLD, anxiety, depression, panic attacks, a questionable clotting abnormality with previous DVT treated with Coumadin and not currently on anti-coagulation, choledocholithiasis, recurrent pancreatitis with necrotic pancreatitis secondary to gall stone s/p cholecystectomy, complicated by pseudocyst status post cystogastrostomy procedure in July 2017 and recently ended 2 weeks ago returning for recurrent pancreatitis. Assessment and plan: # Recurrent acute pancreatitis: -Patient tolerated full liquid diet. Patient underwent MRCP yesterday which showed dilation of the pancreatic duct. This was discussed with Dr. Cordoba and Dr. Arevalo. Dr. Cordoba feels that she might need a pancreatic duct stent placement and would like to discuss with Dr. Garcia today regarding further management and plan. We will follow up with gastroenterology. Patient started on regular diet today. On 75 mL Ringer lactate. Patient appears pale. Follow- up with hemoglobin. -Monitor electrolytes #Leukocytosislikely reactive - resolved -cont to monitor #Hypertension -Continue metoprolol, spironolactone and amlodipine #History of anxiety and depression -Continue duloxetine, clonazepam, trazodone #Mild asthma/reactive airway disease -Continue Singulair, albuterol #Constipation #DVT prophylaxis - lovenox #FULL CODE Plan-discharged to home with follow-up with scale attendant as outpatient. Problem List: 1. Recurrent pancreatitis Pain Ratin Pain Location: none Pain Goal: Remain pain free Pain Plan: tylenol Tomorrow's Labs & Rationales: none Lisa Beltran MD 10/07/17 1227: Attending MD Review Statement Attending Statement Attending MD Statement: examined this patient, discuss w/resident/PA/CONSERVATION AGENT, agreed w/resident/PA/CONSERVATION AGENT, reviewed EMR data (avail), discussed with nursing, reviewed images, amended to note Attending Assessment/Plan: Patient seen and examined, overall doing much better. Tolerating her diet without any problem. MRCP results are consistent with pancreatic ductal dilation. She had diarrhea. Vital Signs Date Time Temp Pulse Resp B/P B/P Pulse O2 O2 Flow FiO2 Mean Ox Delivery Rate 10/07 1056 84 125/67 10/07 1055 84 125/67 10/07 0650 98.0 84 20 125/67 98 Room Air 10/06 2128 98.1 88 18 110/70 98 10/06 1447 99.1 88 18 114/68 94 Room Air on exam; aox3, nad. cv; s1,s2, rrr resp; clear abd; soft, nt, bs+ ext; no edema Laboratory Tests 10/07 0600 Chemistry Sodium (137 - 145 mmol/L) 139 Potassium (3.5 - 5.1 mmol/L) 3.7 Chloride (98 - 107 mmol/L) 102 Carbon Dioxide (22 - 30 mmol/L) 23 Anion Gap (5 - 16) 13 BUN (7 - 17 mg/dL) < 2 L Creatinine (0.5 - 1.0 mg/dL) 0.4 L Estimated GFR (>60 ml/min) > 60 BUN/Creatinine Ratio (7 - 25 %) 5.0 L Hematology CBC w Diff NO MAN DIFF REQ WBC (4.8 - 10.8 /CUMM) 8.0 RBC (4.20 - 5.40 /CUMM) 4.19 L Hgb (12.0 - 16.0 G/DL) 11.4 L Hct (37 - 47 %) 34.8 L MCV (81.0 - 99.0 FL) 83.0 MCH (27.0 - 31.0 PG) 27.2 MCHC (33.0 - 37.0 G/DL) 32.8 L RDW (11.5 - 14.5 %) 17.2 H Plt Count (130 - 400 /CUMM) 292 MPV (7.4 - 10.4 FL) 8.5 Gran % (42.2 - 75.2 %) 73.7 Lymphocytes % (20.5 - 51.1 %) 16.9 L Monocytes % (1.7 - 9.3 %) 5.7 Eosinophils % (0 - 5 %) 3.3 Basophils % (0.0 - 2.0 %) 0.4 Absolute Granulocytes (1.4 - 6.5 /CUMM) 5.9 Absolute Lymphocytes (1.2 - 3.4 /CUMM) 1.4 Absolute Monocytes (0.10 - 0.60 /CUMM) 0.5 Absolute Eosinophils (0.0 - 0.7 /CUMM) 0.3 Absolute Basophils (0.0 - 0.2 /CUMM) 0 A/P; 47 y/o F with pmh sig for HTN, HLD, anxiety, depression, panic attacks, a 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 Status post cystogastrostomy procedure in July 2017, s/p pancreatic stent placement and removal admitted with abd pain 2/2 to recurrent acute pancreatitis. Diet has been advanced and patient able to tolerate low-fat solid diet without any symptoms. Pain has improved. Patient not nauseous and not requiring any analgesics at this point. MRCP results are consistent with pancreatic ductal dilatation. I discussed this with GI. From Dr. Cordoba standpoint, patient can likely be discharged home and follow per Dr. Thomas at [facility] who was the pancreatic specialist doctor for possible pancreatic stents. We have sent her stool for C. difficile. If C. difficile results come out negative then she'll be discharged home. She will be continued on the rest of her home meds.
[2017-10-07 08:12] LABS: ABSOLUTE BASOPHIL COUNT 0 /CUMM (0.0-0.2); ABSOLUTE EOSINOPHIL COUNT 0.3 /CUMM (0.0-0.7); ABSOLUTE GRANULOCYTE CT 5.9 /CUMM (1.4-6.5); ABSOLUTE LYMPH COUNT 1.4 /CUMM (1.2-3.4); ABSOLUTE MONOCYTE COUNT 0.5 /CUMM (0.10-0.60); BASOPHIL % 0.4 % (0.0-2.0); EOSINOPHIL % 3.3 % (0-5); GRANULOCYTE % 73.7 % (42.2-75.2); HEMATOCRIT 34.8 % (37-47); MEAN CORPUSCULAR HGB 27.2 PG (27.0-31.0); MEAN CORPUSCULAR HGB CONC 32.8 G/DL (33.0-37.0); MEAN PLATELET VOLUME 8.5 FL (7.4-10.4); PLATELET COUNT 292 /CUMM (130-400); RBC DISTRIBUTION WIDTH 17.2 % (11.5-14.5); RED BLOOD CELL CT 4.19 /CUMM (4.20-5.40)
--- NOTE | 2017-10-07 08:29 | Patient Discharge Instructions ---
Discharge Instructions General Discharge Information You were seen/treated for: Recurrent Pancreatitis Watch for these problems: In case of abdominal pain, nausea, vomiting, shortness of breath please go to the nearest emergency room Special Instructions: Primary care provider and promotions team leader within 1-2 weeks of discharge. Diet Continue normal diet: Yes Activity Full Activity/No Limits: No Activity Self Limited: Yes Acute Coronary Syndrome Inclusion Criteria At DC or during hospital stay patient has or had the following: ACS DIAGNOSIS No Discharge Core Measures Meds if any: Prescribed or Continued at Discharge Meds if any: NOT Prescribed or Continued at Discharge Congestive Heart Failure Inclusion Criteria At DC or during hospital stay patient has or had the following: CHF DIAGNOSIS No Discharge Core Measures Meds if any: Prescribed or Continued at Discharge Meds if any: NOT Prescribed or Continued at Discharge Cerebrovascular accident Inclusion Criteria At DC or during hospital stay patient has or had the following: CVA/TIA Diagnosis No Discharge Core Measures Meds if any: Prescribed or Continued at Discharge Meds if any: NOT Prescribed or Continued at Discharge Venous thromboembolism Inclusion Criteria VTE Diagnosis No VTE Type NONE VTE Confirmed by (Test) NONE Discharge Core Measures - Per Current guidelines, there needs to be overlap - treatment for the first 5 days of Warfarin therapy. - If discharged on Warfarin prior to 5 days of - overlap therapy, the patient will need to be - assessed for post discharge needs including - *Post discharge parental anticoagulation - *Warfarin and/or parental anticoagulation education - *Follow up date to check INR post discharge At least 5 days overlap therapy as Inpatient No Meds if any: Prescribed or Continued at Discharge Note: Overlap Therapy is Warfarin and Anticoagulant Meds if any: NOT Prescribed or Continued at Discharge
--- NOTE | 2017-10-07 12:23 | Discharge Summary ---
Hospital Course Allergies: Coded Allergies: Sulfa (Sulfonamide Antibiotics) (Intermediate, RASH 10/03/17) valsartan (From DIOVAN) (RETAIN WATER PER PT 10/03/17) Discharge Instructions Medications at Discharge Discharge Medications: Continue taking these medications: Metoprolol Succinate (Metoprolol Succinate) 100 MG TAB.ER.24H 1 Tablet ORAL DAILY Qty = 30 Comments: Last Taken: 09/25/17 Time: 8:11 AM Amlodipine Besylate (Amlodipine Besylate) 5 MG TABLET 2 Tablet ORAL DAILY Qty = 30 Comments: Last Taken: 09/25/17 Time: 8:11 AM Montelukast Sodium (Montelukast Sodium) 10 MG TABLET 1 Tablet ORAL DAILY Qty = 30 Comments: NOT GIVEN IN HOSPITAL Trazodone HCl (Trazodone HCl) 50 MG TABLET 1-2 Tablet ORAL Every night Qty = 30 Comments: NOT GIVEN IN HOSPITAL Duloxetine HCl (Duloxetine HCl) 60 MG CAPSULE.DR 2 Capsule ORAL DAILY Qty = 60 Comments: Last Taken: 08/01/17 Time: 9:30 AM Clonazepam (Clonazepam) 1 MG TABLET 1 Tablet ORAL 2 x Daily as needed as needed for ANXIETY Qty = 60 Comments: Last Taken: 09/24/17 Time: 9:06 PM Ondansetron HCl (Zofran) 4 MG TABLET 1 Tablet ORAL Every 6-8 Hours as Needed as needed for Nausea Qty = 10 Instructions: . Comments: NOT GIVEN IN HOSPITAL IV ZOFRAN GIVEN 07/31/17 @ 1245 Spironolactone (Spironolactone) 100 MG TABLET 1 Tablet ORAL DAILY Qty = 30
[2017-10-07 14:06] VITALS: BP 110/74
== END 2017-10-07 14:43 | DRG 440 ==
LOC: ERH 08:33 → 2NB 10:35 → ERHI 10:35 → ENRESERV 11:01 → ENTRNSPT 11:20 → EDTRNSPT 11:28 → EDTRNSPTSTS 11:28 → 2NB 11:34 → CMPTRNSPT 11:46 → 2NB 10-04 15:31
PROVIDERS: Emergency Medicine; Internal Medicine; Student in an Organized Health Care Education/Training Program
DX: K86.1 Other chronic pancreatitis (principal); E66.9 Obesity, unspecified; E78.5 Hyperlipidemia, unspecified; F32.9 Major depressive disorder, single episode, unspecified; F41.9 Anxiety disorder, unspecified; G47.33 Obstructive sleep apnea (adult) (pediatric); I10 Essential (primary) hypertension; Z90.49 Acquired absence of other specified parts of digestive tract; Z88.2 Allergy status to sulfonamides; Z88.8 Allergy status to other drugs, medicaments and biological substances; J45.909 Unspecified asthma, uncomplicated; Z68.39 Body mass index [BMI] 39.0-39.9, adult; K59.00 Constipation, unspecified
CPT/HCPCS: 74181; 36415; 36592; 81003; 82436; 87045; 93005; 93010; 96361; 96374; 96375; G0480; J1650; J2550; J7120; J7508

== ENCOUNTER 2017-10-20 07:29 | Emergency (ER) | payer OTHER ==
[~2017-10-20] VITALS: Ht 157.5 cm; Wt 95.3 kg
--- NOTE | 2017-10-20 07:53 | ED GENERAL ADULT ---
See Addendum History of Present Illness General Chief Complaint: Abdominal Pain/Flank Pain Stated Complaint: N/V, ABD PAIN Source: patient Exam Limitations: no limitations Vital Signs & Intake/Output Vital Signs & Intake/Output Vital Signs Date Time Temp Pulse Resp B/P B/P Pulse O2 O2 Flow FiO2 Mean Ox Delivery Rate 10/20 920 99.3 90 20 133/65 98 Room Air 10/20 0636 98.2 114 20 124/85 98 Room Air Allergies Coded Allergies: Sulfa (Sulfonamide Antibiotics) (Intermediate, RASH 10/03/17) valsartan (From DIOVAN) (RETAIN WATER PER PT 10/03/17) Reconcile Medications Amlodipine Besylate 5 MG TABLET 2 TAB PO DAILY BP (Reported) Clonazepam 1 MG TABLET 1 TAB PO BIDP PRN ANXIETY (Reported) Duloxetine HCl 60 MG CAPSULE.DR 2 CAP PO DAILY MENTAL HEALTH/NERVE PAIN ( Reported) Lipase/Protease/Amylase (Creon Dr 6,000 Units Capsule) [id number] CAPSULE.DR 1 TAB PO WITH MEALS UNKNOWN (Reported) Metoprolol Succinate 100 MG TAB.ER.24H 1 TAB PO DAILY HEART/BP (Reported) Montelukast Sodium 10 MG TABLET 1 TAB PO DAILY ALLERGIES (Reported) Ondansetron HCl (Zofran) 4 MG TABLET 1 TAB PO Q6-8P PRN Nausea . Pantoprazole Sodium 40 MG TABLET.DR 1 TAB PO DAILY GI (Reported) Pregabalin (Lyrica) 75 MG CAPSULE 1 CAP PO BID NEUROPATHY (Reported) Spironolactone 100 MG TABLET 1 TAB PO DAILY HTN (Reported) Trazodone HCl 50 MG TABLET 1-2 TAB PO QPM SLEEP (Reported) Triage Note: PT C/O N/V SINCE LAST NIGHT. STATES SHE THINKS IT'S PANCREATITIS. SAW GI DOC YESTERDAY AND GOT RX'D LYRICA, CREON BUT COULDN'T KEEP THE MEDS DOWN. STATES SHE HAS ONLY HAD ABOUT 16 OZ OF WATER IN THE LAST 24 HOURS AND COULDN'T KEEP IT DOWN. ABDOMINAL PAIN RADIATES INTO HER BACK Triage Nurses Notes Reviewed? yes Onset: Abrupt Duration: day(s): Timing: no prior history : No Patient currently breastfeeds: No HPI: 10/20/17 8:44 AM 47-year-old female presents to the emergency department complaining of upper abdominal pain and multiple episodes of vomiting. The patient states that she has a history of common bile duct stricture. She also has pancreatitis. She sees Dr. Schaeffer. She says that she's been having ongoing episodes of crampy abdominal pain and vomiting. She has been unable to take her meds because she is vomiting them up. She denies any fever. She denies any possibility of . Past History Travel History Traveled to [place] past 21 day No Medical History Any Pertinent Medical History? see below for history Neurological: NONE EENT: Lasik surgery Cardiovascular: hypertension, hyperlipidemia Respiratory: asthma, obstructive sleep apnea Gastrointestinal: pancreatitis Hepatic: ? 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 Age 67. MOTHER, , Age 34; Cause: MVA (motor vehicle accident). PGA, , Age 85; Cause: Colon cancer. Hx Contributory? No Review of Systems Review of Systems Constitutional: Denies: fever. EENTM: Reports: no symptoms. Respiratory: Reports: no symptoms. Cardiovascular: Reports: no symptoms. GI: Reports: see HPI. Genitourinary: Reports: no symptoms. Musculoskeletal: Reports: no symptoms. Skin: Reports: no symptoms. Neurological/Psychological: Reports: no symptoms. Hematologic/Endocrine: Reports: no symptoms. Immunologic/Allergic: Reports: no symptoms. Physical Exam Physical Exam General Appearance: well developed/nourished, alert, awake, anxious, moderate distress Head: atraumatic, normal appearance Eyes: Bilateral: normal appearance, PERRL, EOMI. Ears, Nose, Throat: normal pharynx, normal ENT inspection Neck: normal inspection, supple Respiratory: normal breath sounds, chest non-tender, no respiratory distress Cardiovascular: regular rate/rhythm Peripheral Pulses: 4+ radial (R), 4+ radial (L) Gastrointestinal: soft, tenderness Back: normal range of motion Extremities: normal inspection, normal range of motion, no edema Neurologic/Psych: no motor/sensory deficits, awake, alert, oriented x 3 Skin: intact, normal color, warm/dry Core Measures ACS in differential dx? No CVA/TIA Diagnosis: No Sepsis Present: No Sepsis Focused Exam Completed? No Progress Differential Diagnoses I considered the following diagnoses in my evaluation of the patient: [ Gastroparesis, pancreatitis, pseudocyst, biliary colic] Plan of Care: Orders Procedure Date/time Status URINALYSIS 10/20 1038 Complete LIPASE 10/20 814 Complete HUMAN BETA HCG SCREEN 10/20 814 Complete COMPREHENSIVE METABOLIC PANEL 10/20 814 Complete CBC WITHOUT DIFFERENTIAL 10/20 814 Complete AMYLASE 10/20 814 Complete Current Medications Sig/Anay Start time Last Medication Dose Stop Time Status Admin Sodium Chloride 1,000 ML BOLUS ONE 10/20 1130 UNVr (Normal Saline 0.9%) 10/20 1229 Laboratory Tests 10/20/17 1041: Urine Color YEL, Urine Clarity HAZY H, Urine pH 6.0, Ur Specific [place] 1.010, Urine Protein NEG, Urine Ketones 40 H, Urine Nitrite NEG, Urine Bilirubin NEG@ ICTO, Urine Urobilinogen 0.2, Ur Leukocyte Esterase NEG, Ur Microscopic SEDIMENT EXAMINED, Urine RBC RARE, Urine WBC 1-3 H, Ur Epithelial Cells MANY H, Urine Bacteria MOD H, Hyaline Casts RARE H, Urine Mucus RARE, Urine Hemoglobin NEG, Urine Glucose NEG 10/20/17 0842: Anion Gap 16, Estimated GFR > 60, BUN/Creatinine Ratio 22.0, Glucose 140 H, Calcium 9.3, Total Bilirubin 0.8, AST 13 L, ALT 20, Alkaline Phosphatase 90, Total Protein 6.4, Albumin 3.4 L, Globulin 3.0, Albumin/Globulin Ratio 1.1, Amylase 145 H, Lipase 1806 H, Total Beta HCG NEGATIVE, CBC w Diff MAN DIFF ORDERED, RBC 4.57, MCV 82.3, MCH 27.2, MCHC 33.1, RDW 15.2 H, MPV 7.6, Gran % 85.5 H, Lymphocytes % 8.3 L, Monocytes % 5.8, Eosinophils % 0.1, Basophils % 0.3, Absolute Granulocytes 10.6 H, Absolute Lymphocytes 1.0 L, Absolute Monocytes 0.7 H, Absolute Eosinophils 0, Absolute Basophils 0, Platelet Estimate VERIFIED BY SMEAR, Anisocytosis 1+ 10/20/17 Patient feels better. Tolerating by mouth fluids. Awaiting a call from GI. Initial ED EKG: none Departure Departure Disposition: STILL A PATIENT Condition: Stable Clinical Impression Primary Impression: Abdominal pain Referrals: Bienvenido Casarez MD (PCP/Family) Departure Forms: Customer Survey General Discharge Information Comments 11:[address] Garcia covering for Dr. Schaeffer. He is in agreement with the plan that if the patient's labs are essentially unchanged and she is tolerating fluids she can be discharged. Critical Care Note Critical Care Note Critical Care Time: non-applicable
[2017-10-20] MEDS ORDERED: CREON DR 6,0001 EACH PO (08:00)
[2017-10-20] MEDS ORDERED: LYRICA75 M1 PO (08:00)
[2017-10-20] MEDS ORDERED: PANTOPRAZOLE SO40 M1 PO (08:01)
[2017-10-20 08:48] LABS: ABSOLUTE BASOPHIL COUNT 0 /CUMM (0.0-0.2); ABSOLUTE EOSINOPHIL COUNT 0 /CUMM (0.0-0.7); ABSOLUTE GRANULOCYTE CT 10.6 /CUMM (1.4-6.5); ABSOLUTE MONOCYTE COUNT 0.7 /CUMM (0.10-0.60); BASOPHIL % 0.3 % (0.0-2.0); EOSINOPHIL % 0.1 % (0-5); GRANULOCYTE % 85.5 % (42.2-75.2); HEMATOCRIT 37.6 % (37-47); MEAN CORPUSCULAR HGB 27.2 PG (27.0-31.0); MEAN CORPUSCULAR HGB CONC 33.1 G/DL (33.0-37.0); MEAN CORPUSCULAR VOLUME 82.3 FL (81.0-99.0); MEAN PLATELET VOLUME 7.6 FL (7.4-10.4); PLATELET COUNT 478 /CUMM (130-400); RBC DISTRIBUTION WIDTH 15.2 % (11.5-14.5); RED BLOOD CELL CT 4.57 /CUMM (4.20-5.40); WHITE BLOOD CELL COUNT 12.4 /CUMM (4.8-10.8)
[2017-10-20 15:50] VITALS: BP 131/78
[2017-10-20] MEDS ORDERED: PROMETHAZINE12.5 M2 PO (15:53)
== END 2017-10-20 15:51 ==
LOC: ERH 07:29
PROVIDERS: Emergency Medicine
DX: R10.9 Unspecified abdominal pain (principal)
CPT/HCPCS: 81001; 96374; 96375; 96376; J0131; J2550

== ENCOUNTER 2017-11-09 05:19 | Emergency (ER) | payer OTHER ==
[~2017-11-09 05:19] MED LIST changes: +CREON DR 6,0001 EACH PO; +LYRICA75 M1 PO; +PROMETHAZINE12.5 M2 PO
--- NOTE | 2017-11-09 05:25 | ED GI/GU/ABDOMINAL COMPLAINT ---
History of Present Illness General Chief Complaint: Abdominal Pain/Flank Pain Stated Complaint: "UM I HAVE ABDOMIN PAIN" Source: patient Exam Limitations: no limitations Allergies Coded Allergies: Sulfa (Sulfonamide Antibiotics) (Intermediate, RASH 10/03/17) valsartan (From DIOVAN) (RETAIN WATER PER PT 10/03/17) Reconcile Medications Amlodipine Besylate 5 MG TABLET 2 TAB PO DAILY BP (Reported) Clonazepam 1 MG TABLET 1 TAB PO BIDP PRN ANXIETY (Reported) Duloxetine HCl 60 MG CAPSULE.DR 2 CAP PO DAILY MENTAL HEALTH/NERVE PAIN ( Reported) Lipase/Protease/Amylase (Creon Dr 6,000 Units Capsule) [id number] CAPSULE.DR 1 TAB PO WITH MEALS UNKNOWN (Reported) Metoprolol Succinate 100 MG TAB.ER.24H 1 TAB PO DAILY HEART/BP (Reported) Montelukast Sodium 10 MG TABLET 1 TAB PO DAILY ALLERGIES (Reported) Ondansetron HCl (Zofran) 4 MG TABLET 1 TAB PO Q6-8P PRN Nausea . Oxycodone HCl/Acetaminophen (Percocet 5-325 MG Tablet) 5 MG-325 MG TABLET 1-2 TAB PO Q6P PRN PAIN Pantoprazole Sodium 40 MG TABLET.DR 1 TAB PO DAILY GI (Reported) Pregabalin (Lyrica) 75 MG CAPSULE 1 CAP PO BID NEUROPATHY (Reported) Promethazine HCl 12.5 MG TABLET 1 TAB PO Q6-8 NAUSEA Spironolactone 100 MG TABLET 1 TAB PO DAILY HTN (Reported) Trazodone HCl 50 MG TABLET 1-2 TAB PO QPM SLEEP (Reported) Triage Nurses Notes Reviewed? yes ? N Is pt currently ? No Onset: Gradual Timing: recent history Location: epigastric, generalized abdomen Radiation: no radiation Activities at Onset: pt had ercp at [facility] 5 days ago. Prior Abdominal Problems: similar symptoms Modifying Factors: Worsens With: palpation. Associated Symptoms: abdominal pain HPI: 47-year-old woman presents with midepigastric abdominal pain for the past 1-2 days. She states that on 11/04/17 she had an ERCP at [facility]. She states, "They put in a stent... they severed my pancreatic duct and they need to repair it this November." She notes crampy and sharp mid epigastric pain with occasional nausea. She had a normal bowel movement yesterday. She has no fever chills dysuria or vaginal discharge flank pain dyspnea or chest pain. She is otherwise well and has no other concerns. (Sarthak BRUNNER,Luis Antonio Perez) Vital Signs & Intake/Output Vital Signs & Intake/Output Vital Signs Date Time Temp Pulse Resp B/P B/P Pulse O2 O2 Flow FiO2 Mean Ox Delivery Rate 11/09 1212 98.2 74 18 104/70 98 Room Air 11/09 1040 98.4 75 18 108/61 100 Room Air 11/09 0907 98.4 74 18 109/60 100 Room Air 11/09 0731 98.1 74 18 103/81 98 Room Air 11/09 0531 97.7 98 18 107/62 98 Room Air (Julio C BRUNNER,Jakob Vilchis) Past History Travel History Traveled to [place] past 21 day No Medical History Any Pertinent Medical History? see below for history Neurological: NONE EENT: Lasik surgery Cardiovascular: hypertension, hyperlipidemia Respiratory: asthma, obstructive sleep apnea Gastrointestinal: pancreatitis Hepatic: ? 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 Age 67. MOTHER, , Age 34; Cause: MVA (motor vehicle accident). PGA, , Age 85; Cause: Colon cancer. Hx Contributory? No (Sarthak BRUNNER,Luis Antonio Perez) Review of Systems Review of Systems Constitutional: Denies: see HPI. (Sarthak BRUNNER,Luis Antonio Perez) Physical Exam Physical Exam Gastrointestinal: see below Comments: Review of Systems - except as otherwise noted in HPI Review of Systems Constitutional:no symptoms. EENTM:no symptoms. Respiratory:no symptoms. Cardiovascular:no symptoms. GI:no symptoms. Genitourinary:no symptoms. Musculoskeletal:no symptoms. Skin:no symptoms. Neurological/Psychological:no symptoms. Hematologic/Endocrine:no symptoms. Immunologic/Allergic:no symptoms. All Other Systems: Reviewed and Negative Physical Exam Physical Exam General Appearance: well developed/nourished, no apparent distress Head: atraumatic, normal appearance Eyes: Bilateral: normal appearance. Ears, Nose, Throat: normal pharynx, normal ENT inspection Neck: normal inspection, supple, full range of motion Respiratory: normal breath sounds, chest non-tender, no respiratory distress, quiet respiration, lungs clear Cardiovascular: regular rate/rhythm Gastrointestinal: soft, no organomegaly//mid epigastric tenderness w/ mild rebound. diminished bowel sounds, mild distension Back: normal inspection, normal range of motion Extremities: normal inspection, normal capillary refill, normal range of motion, no edema Neurologic/Psych: no motor/sensory deficits, awake, alert, oriented x 3 Skin: intact, normal color, warm/dry Core Measures ACS in differential dx? No Sepsis Present: No Sepsis Focused Exam Completed? No (Sarthak BRUNNER,Luis Antonio Perez) Progress Differential Diagnosis: pancreatitis vs other. Diagnostic Imaging: Viewed by Me: CT Scan. Discussed w/RAD: CT Scan. Radiology Impression: PATIENT: CR VASQUEZ PRESENT AGE: 47 PATIENT ACCOUNT NO: [id number] : 72 LOCATION: [facility] ORDERING PHYSICIAN: Luis Antonio De León MD SERVICE DATE: 11/09/17 EXAM TYPE: CAT - CT ABD & PELVIS W IV CONTRAST EXAMINATION: CT ABDOMEN AND PELVIS WITH CONTRAST CLINICAL INFORMATION: Mid epigastric tenderness. Question pancreatitis. COMPARISON: CT of the abdomen and pelvis from 09/22/2017, MRI of the abdomen from 10/06/2017 TECHNIQUE: Multidetector volumetric imaging was performed of the abdomen and pelvis following IV administration of 95 mL of Optiray 320 intravenous contrast. Sagittal and coronal reformatted images were obtained on the technologist's workstation. DLP: 796 mGy-cm FINDINGS: LUNG BASES : There are dependent changes in the lung bases bilaterally. The imaged heart and pericardium appear unremarkable. LIVER, GALLBLADDER, AND BILIARY TREE: No discrete hepatic lesions. There is stable minor central intrahepatic biliary ductal prominence without progression. There are stable changes after cholecystectomy. PANCREAS: In the interim since the prior study there has been development of a unilocular cystic structure in the proximal pancreatic body measuring 3.1 x 3.8 x 4.6 cm, compatible with a pancreatic pseudocyst. A second unilocular cystic structure in the pancreatic head (series 602 image 44) measures 8 mm, suggesting an additional pseudocyst. There remains beaded pancreatic ductal dilatation in the pancreatic body and tail. There is a newly visualized stent extending from the duodenum across the ampulla. There is mild peripancreatic fluid and stranding, slightly improved. SPLEEN: Unremarkable. ADRENAL GLANDS: Unremarkable. KIDNEYS AND URETERS: The kidneys are normal in size, shape, and attenuation. No hydronephrosis, hydroureter, or calculi seen. No perinephric stranding. There is a stable 3.1 cm hypoattenuating focus arising exophytically along the anterior aspect of the left kidney compatible with a cyst. BLADDER: Unremarkable. GASTROINTESTINAL TRACT: Loops of small and large bowel appear unremarkable. An appendix is not definitively visualized. There appears to be a duodenal diverticulum which is predominantly fluid-filled, unchanged. There is some mild fluid along the left paracolic gutter. ABDOMINAL WALL: There is a tiny periumbilical fat-containing hernia. LYMPH NODES: No definitive adenopathy. VASCULAR: The portal vein appears patent. There is mild mass effect upon it due to the dominant pseudocyst. The superior mesenteric vein also appears patent. The aorta is normal in caliber. PELVIC VISCERA: There is a right adnexal cyst measuring 4.5 cm, likely physiologic. There is a small amount of fluid in the cul-de-sac. OSSEOUS STRUCTURES: There are 5 nonrib-bearing lumbar type vertebral bodies. There is moderate degenerative change at L5-S1 with intervertebral disc height loss, vacuum phenomenon, endplate sclerosis and spurring as well as advanced facet hypertrophy without evidence of spondylolyses. There are degenerative changes at the pubic symphysis. IMPRESSION : 1. Interval placement of a biliary stent across the ampulla. 2. In the interim since the prior studies there has been development of a 3.1 x 3.8 x 4.6 cm unilocular pancreatic pseudocyst centered in the proximal pancreatic body, and a second 0.8 cm cystic structure in the pancreatic head, also suggestive of a pseudocyst. 3. There remains a beaded pancreatic ductal dilatation, similar to the prior. Some mild peripancreatic stranding, slightly improved from 2017. 4. Stable fluid-filled duodenal diverticulum. Stable changes after cholecystectomy with stable mild central intrahepatic ductal dilatation. 5. The dominant pseudocyst creates mild mass effect upon the portal vein which remains patent. DICTATED BY: Christin Manzo MD DATE/TIME DICTATED:11/09/17913 TIE LAYER:KIMBERLY DATE/TIME TRANSCRIBED:11/09/17913 CONFIDENTIAL, DO NOT COPY WITHOUT APPROPRIATE AUTHORIZATION. <Electronically signed in Other Vendor System> SIGNED BY: Christin Manzo MD 11/09/17 0933 Initial ED EKG: nsr, no acute changes Hand-Off Endorsed To: Jakob Bunch MD Endorsed Time: 07 Pending: CT, labs (Sarthak BRUNNER,Luis Antonio Perez) Plan of Care: Orders Procedure Date/time Status Add-on Test (ER Only) 11/09 637 Active TROPONIN LEVEL 11/09 550 Complete ETHANOL 11/09 550 Complete EKG 11/09 524 Active URINALYSIS 11/09 522 Complete LIPASE 11/09 522 Complete HEPATIC FUNCTION PANEL 11/09 522 Complete HUMAN BETA HCG SCREEN 11/09 522 Complete CBC WITHOUT DIFFERENTIAL 11/09 522 Complete BASIC METABOLIC PANEL 11/09 522 Complete AMYLASE 11/09 522 Complete Laboratory Tests 11/09/17 1011: Urine Color YEL, Urine Clarity HAZY H, Urine pH 6.0, Ur Specific [place] 1.010, Urine Protein NEG, Urine Ketones 15 H, Urine Nitrite NEG, Urine Bilirubin NEG, Urine Urobilinogen 0.2, Ur Leukocyte Esterase NEG, Ur Microscopic SEDIMENT EXAMINED, Urine RBC RARE, Urine WBC 1-3 H, Ur Epithelial Cells MANY H, Urine Bacteria FEW H, Urine Mucus MOD H, Urine Hemoglobin NEG, Urine Glucose NEG 11/09/17 0551: Anion Gap 10, Estimated GFR > 60, BUN/Creatinine Ratio 11.7, Glucose 110 H, Calcium 8.7, Total Bilirubin 0.6, Direct Bilirubin 0.2, AST 20, ALT 44, Alkaline Phosphatase 165 H, Troponin I < 0.01, Total Protein 5.6 L, Albumin 2.8 L, Amylase 340 H, Lipase 2406 H, Total Beta HCG NEGATIVE, CBC w Diff NO MAN DIFF REQ, RBC 4.36, MCV 84.1, MCH 27.6, MCHC 32.8 L, RDW 16.0 H, MPV 8.2, Gran % 74.6, Lymphocytes % 14.8 L, Monocytes % 5.0, Eosinophils % 5.0, Basophils % 0.6 , Absolute Granulocytes 5.9, Absolute Lymphocytes 1.2, Absolute Monocytes 0.4, Absolute Eosinophils 0.4, Absolute Basophils 0, Serum Alcohol < 10.0 11/09/17 0525: Troponin I Cancelled Radiology Impression: PATIENT: CR VASQUEZ PRESENT AGE: 47 PATIENT ACCOUNT NO: [id number] : 72 LOCATION: [facility] ORDERING PHYSICIAN: Luis Antonio De León MD SERVICE DATE: 11/09/17 EXAM TYPE: CAT - CT ABD & PELVIS W IV CONTRAST EXAMINATION: CT ABDOMEN AND PELVIS WITH CONTRAST CLINICAL INFORMATION: Mid epigastric tenderness. Question pancreatitis. COMPARISON: CT of the abdomen and pelvis from 09/22/2017, MRI of the abdomen from 10/06/2017 TECHNIQUE: Multidetector volumetric imaging was performed of the abdomen and pelvis following IV administration of 95 mL of Optiray 320 intravenous contrast. Sagittal and coronal reformatted images were obtained on the technologist's workstation. DLP: 796 mGy-cm FINDINGS: LUNG BASES : There are dependent changes in the lung bases bilaterally. The imaged heart and pericardium appear unremarkable. LIVER, GALLBLADDER, AND BILIARY TREE: No discrete hepatic lesions. There is stable minor central intrahepatic biliary ductal prominence without progression. There are stable changes after cholecystectomy. PANCREAS: In the interim since the prior study there has been development of a unilocular cystic structure in the proximal pancreatic body measuring 3.1 x 3.8 x 4.6 cm, compatible with a pancreatic pseudocyst. A second unilocular cystic structure in the pancreatic head (series 602 image 44) measures 8 mm, suggesting an additional pseudocyst. There remains beaded pancreatic ductal dilatation in the pancreatic body and tail. There is a newly visualized stent extending from the duodenum across the ampulla. There is mild peripancreatic fluid and stranding, slightly improved. SPLEEN: Unremarkable. ADRENAL GLANDS: Unremarkable. KIDNEYS AND URETERS: The kidneys are normal in size, shape, and attenuation. No hydronephrosis, hydroureter, or calculi seen. No perinephric stranding. There is a stable 3.1 cm hypoattenuating focus arising exophytically along the anterior aspect of the left kidney compatible with a cyst. BLADDER: Unremarkable. GASTROINTESTINAL TRACT: Loops of small and large bowel appear unremarkable. An appendix is not definitively visualized. There appears to be a duodenal diverticulum which is predominantly fluid-filled, unchanged. There is some mild fluid along the left paracolic gutter. ABDOMINAL WALL: There is a tiny periumbilical fat-containing hernia. LYMPH NODES: No definitive adenopathy. VASCULAR: The portal vein appears patent. There is mild mass effect upon it due to the dominant pseudocyst. The superior mesenteric vein also appears patent. The aorta is normal in caliber. PELVIC VISCERA: There is a right adnexal cyst measuring 4.5 cm, likely physiologic. There is a small amount of fluid in the cul-de-sac. OSSEOUS STRUCTURES: There are 5 nonrib-bearing lumbar type vertebral bodies. There is moderate degenerative change at L5-S1 with intervertebral disc height loss, vacuum phenomenon, endplate sclerosis and spurring as well as advanced facet hypertrophy without evidence of spondylolyses. There are degenerative changes at the pubic symphysis. IMPRESSION : 1. Interval placement of a biliary stent across the ampulla. 2. In the interim since the prior studies there has been development of a 3.1 x 3.8 x 4.6 cm unilocular pancreatic pseudocyst centered in the proximal pancreatic body, and a second 0.8 cm cystic structure in the pancreatic head, also suggestive of a pseudocyst. 3. There remains a beaded pancreatic ductal dilatation, similar to the prior. Some mild peripancreatic stranding, slightly improved from 2017. 4. Stable fluid-filled duodenal diverticulum. Stable changes after cholecystectomy with stable mild central intrahepatic ductal dilatation. 5. The dominant pseudocyst creates mild mass effect upon the portal vein which remains patent. DICTATED BY: Christin Manzo MD DATE/TIME DICTATED:11/09/17913 TIE LAYER:KIMBERLY DATE/TIME TRANSCRIBED:11/09/17913 CONFIDENTIAL, DO NOT COPY WITHOUT APPROPRIATE AUTHORIZATION. <Electronically signed in Other Vendor System> SIGNED BY: Christin Manzo MD 11/09/1715 Comments: Patient's pain is much better controlled. Patient feels stable home. Patient states that she has a known pseudocyst ever since she was at [facility]. Patient does have follow-up. (Julio C BRUNNER,Jakob Vilchis) Departure Departure Condition: Stable Clinical Impression Primary Impression: Abdominal pain Secondary Impressions: Pancreatitis Referrals: Bienvenido Casarez MD (PCP/Family) Departure Forms: Customer Survey General Discharge Information (Sarthak BRUNNER,Luis Antonio Perez) Departure Disposition: HOME OR SELF CARE Additional Instructions: FOLLOW UP WITH DR. SHELTON RETURN IF SYMPTOMS WORSEN, YOU DEVELOP A FEVER OR FOR ANY CONCERNS Prescriptions: Current Visit Scripts Oxycodone HCl/Acetaminophen (Percocet 5-325 MG Tablet) 1-2 TAB PO Q6P PRN PAIN #20 TAB (Julio C BRUNNER,Jakob Vilchis)
[2017-11-09 06:09] LABS: ABSOLUTE BASOPHIL COUNT 0 /CUMM (0.0-0.2); ABSOLUTE EOSINOPHIL COUNT 0.4 /CUMM (0.0-0.7); ABSOLUTE GRANULOCYTE CT 5.9 /CUMM (1.4-6.5); ABSOLUTE LYMPH COUNT 1.2 /CUMM (1.2-3.4); ABSOLUTE MONOCYTE COUNT 0.4 /CUMM (0.10-0.60); BASOPHIL % 0.6 % (0.0-2.0); GRANULOCYTE % 74.6 % (42.2-75.2); HEMATOCRIT 36.6 % (37-47); MEAN CORPUSCULAR HGB 27.6 PG (27.0-31.0); MEAN CORPUSCULAR HGB CONC 32.8 G/DL (33.0-37.0); MEAN CORPUSCULAR VOLUME 84.1 FL (81.0-99.0); MEAN PLATELET VOLUME 8.2 FL (7.4-10.4); PLATELET COUNT 222 /CUMM (130-400); RED BLOOD CELL CT 4.36 /CUMM (4.20-5.40); WHITE BLOOD CELL COUNT 7.9 /CUMM (4.8-10.8)
--- NOTE | 2017-11-09 09:33 | CT SCAN REPORT ---
EXAMINATION: CT ABDOMEN AND PELVIS WITH CONTRAST CLINICAL INFORMATION: Mid epigastric tenderness. Question pancreatitis. COMPARISON: CT of the abdomen and pelvis from 09/22/2017, MRI of the abdomen from 10/06/2017 TECHNIQUE: Multidetector volumetric imaging was performed of the abdomen and pelvis following IV administration of 95 mL of Optiray 320 intravenous contrast. Sagittal and coronal reformatted images were obtained on the technologist's workstation. DLP: 796 mGy-cm FINDINGS: LUNG BASES: There are dependent changes in the lung bases bilaterally. The imaged heart and pericardium appear unremarkable. LIVER, GALLBLADDER, AND BILIARY TREE: No discrete hepatic lesions. There is stable minor central intrahepatic biliary ductal prominence without progression. There are stable changes after cholecystectomy. PANCREAS: In the interim since the prior study there has been development of a unilocular cystic structure in the proximal pancreatic body measuring 3.1 x 3.8 x 4.6 cm, compatible with a pancreatic pseudocyst. A second unilocular cystic structure in the pancreatic head (series 602 image 44) measures 8 mm, suggesting an additional pseudocyst. There remains beaded pancreatic ductal dilatation in the pancreatic body and tail. There is a newly visualized stent extending from the duodenum across the ampulla. There is mild peripancreatic fluid and stranding, slightly improved. SPLEEN: Unremarkable. ADRENAL GLANDS: Unremarkable. KIDNEYS AND URETERS: The kidneys are normal in size, shape, and attenuation. No hydronephrosis, hydroureter, or calculi seen. No perinephric stranding. There is a stable 3.1 cm hypoattenuating focus arising exophytically along the anterior aspect of the left kidney compatible with a cyst. BLADDER: Unremarkable. GASTROINTESTINAL TRACT: Loops of small and large bowel appear unremarkable. An appendix is not definitively visualized. There appears to be a duodenal diverticulum which is predominantly fluid-filled, unchanged. There is some mild fluid along the left paracolic gutter. ABDOMINAL WALL: There is a tiny periumbilical fat-containing hernia. LYMPH NODES: No definitive adenopathy. VASCULAR: The portal vein appears patent. There is mild mass effect upon it due to the dominant pseudocyst. The superior mesenteric vein also appears patent. The aorta is normal in caliber. PELVIC VISCERA: There is a right adnexal cyst measuring 4.5 cm, likely physiologic. There is a small amount of fluid in the cul-de-sac. OSSEOUS STRUCTURES: There are 5 nonrib-bearing lumbar type vertebral bodies. There is moderate degenerative change at L5-S1 with intervertebral disc height loss, vacuum phenomenon, endplate sclerosis and spurring as well as advanced facet hypertrophy without evidence of spondylolyses. There are degenerative changes at the pubic symphysis. IMPRESSION: 1. Interval placement of a biliary stent across the ampulla. 2. In the interim since the prior studies there has been development of a 3.1 x 3.8 x 4.6 cm unilocular pancreatic pseudocyst centered in the proximal pancreatic body, and a second 0.8 cm cystic structure in the pancreatic head, also suggestive of a pseudocyst. 3. There remains a beaded pancreatic ductal dilatation, similar to the prior. Some mild peripancreatic stranding, slightly improved from 09/22/2017. 4. Stable fluid-filled duodenal diverticulum. Stable changes after cholecystectomy with stable mild central intrahepatic ductal dilatation. 5. The dominant pseudocyst creates mild mass effect upon the portal vein which remains patent.
[2017-11-09] MEDS ORDERED: PERCOCET 5-3251 EACH PO (12:03)
[2017-11-09 12:12] VITALS: BP 104/70
[2017-11-10] MEDS ORDERED: DILAUDID2 M1 PO ×2 (23:43→23:47)
[2017-11-10] MEDS ORDERED: REGLAN10 M1 PO (23:43)
== END 2017-11-09 12:13 ==
LOC: ERH 05:19
PROVIDERS: Pediatrics
DX: K85.90 Acute pancreatitis without necrosis or infection, unspecified (principal); R10.13 Epigastric pain; I10 Essential (primary) hypertension; J45.909 Unspecified asthma, uncomplicated
CPT/HCPCS: 74177; 81001; 93005; 93010; 96374; 96375; G0480; J2550

== ENCOUNTER 2017-11-10 21:30 | Emergency (ER) | payer OTHER ==
[2017-11-10 22:37] LABS: ABSOLUTE BASOPHIL COUNT 0 /CUMM (0.0-0.2); ABSOLUTE EOSINOPHIL COUNT 0.3 /CUMM (0.0-0.7); ABSOLUTE GRANULOCYTE CT 6.7 /CUMM (1.4-6.5); ABSOLUTE MONOCYTE COUNT 0.3 /CUMM (0.10-0.60); BASOPHIL % 0.1 % (0.0-2.0); EOSINOPHIL % 3.6 % (0-5); MEAN CORPUSCULAR HGB 27.2 PG (27.0-31.0); MEAN CORPUSCULAR HGB CONC 32.7 G/DL (33.0-37.0); MEAN PLATELET VOLUME 8.2 FL (7.4-10.4); PLATELET COUNT 280 /CUMM (130-400); RED BLOOD CELL CT 4.57 /CUMM (4.20-5.40); WHITE BLOOD CELL COUNT 8.3 /CUMM (4.8-10.8)
--- NOTE | 2017-11-10 22:59 | ED GI/GU/ABDOMINAL COMPLAINT ---
History of Present Illness General Chief Complaint: General Adult Stated Complaint: "I HAVE PANCREATITIS" PER PT Source: patient, old records Exam Limitations: no limitations Vital Signs & Intake/Output Vital Signs & Intake/Output Vital Signs Date Time Temp Pulse Resp B/P B/P Pulse O2 O2 Flow FiO2 Mean Ox Delivery Rate 11/10 2351 98.2 88 18 95/52 98 Room Air 11/10 2347 95/52 11/10 2133 99.1 111 18 130/92 98 Room Air ED Intake and Output 11/11 0000 11/10 1200 Intake Total 0 Output Total Balance 0 Intake, Oral 0 Allergies Coded Allergies: Sulfa (Sulfonamide Antibiotics) (Intermediate, RASH 10/03/17) valsartan (From DIOVAN) (RETAIN WATER PER PT 10/03/17) Reconcile Medications Amlodipine Besylate 5 MG TABLET 2 TAB PO DAILY BP (Reported) Clonazepam 1 MG TABLET 1 TAB PO BIDP PRN ANXIETY (Reported) Duloxetine HCl 60 MG CAPSULE.DR 2 CAP PO DAILY MENTAL HEALTH/NERVE PAIN ( Reported) Hydromorphone HCl (Dilaudid) 2 MG TABLET 1 TAB PO Q6 PAIN Lipase/Protease/Amylase (Creon Dr 6,000 Units Capsule) 6K-19K-30K CAPSULE.DR 1 TAB PO WITH MEALS UNKNOWN (Reported) Metoclopramide HCl (Reglan) 10 MG TABLET 1 TAB PO 4 TIMES/DAY PRN NAUSEA Metoprolol Succinate 100 MG TAB.ER.24H 1 TAB PO DAILY HEART/BP (Reported) Montelukast Sodium 10 MG TABLET 1 TAB PO DAILY ALLERGIES (Reported) Ondansetron HCl (Zofran) 4 MG TABLET 1 TAB PO Q6-8P PRN Nausea . Oxycodone HCl/Acetaminophen (Percocet 5-325 MG Tablet) 5 MG-325 MG TABLET 1-2 TAB PO Q6P PRN PAIN Pantoprazole Sodium 40 MG TABLET.DR 1 TAB PO DAILY GI (Reported) Pregabalin (Lyrica) 75 MG CAPSULE 1 CAP PO BID NEUROPATHY (Reported) Promethazine HCl 12.5 MG TABLET 1 TAB PO Q6-8 NAUSEA Spironolactone 100 MG TABLET 1 TAB PO DAILY HTN (Reported) Trazodone HCl 50 MG TABLET 1-2 TAB PO QPM SLEEP (Reported) Triage Note: PT TO TRIAGE C/O ABD PAIN. PT STATES "I WAS HERE YESTERDAY, I HAVE PANCREATITIS." PT STATES WAS GIVEN RX FOR DILAUDID BUT WAS UNABLE TO SCRATCHER D/T IT HAVING TO BE PREAPPROVED. +N/-V. Triage Nurses Notes Reviewed? yes ? N Is pt currently ? No Duration: constant Timing: recent history Quality/Severity: sharpness, severe, stabbing Severity Numbers: 8 Location: generalized abdomen Radiation: no radiation HPI: Patient is a 47-year-old female with a past medical history of hypertension, hyperlipidemia, anxiety, depression, panic attacks, DVT currently not on anticoagulation, choledocholithiasis and pancreatitis and necrotic pancreatitis secondary to gallstone cholecystectomy and comp cases pseudocyst and which old records indicate the patient was admitted in September AT [facility] for recurrence of pancreatitis MRCP showed abnormal dilation of the pancreatic duct It was discussed to patient to follow up with Dr. Schaeffer and SINGH for pancreatic duct stenting Old records also indicate the patient was evaluated here at [place] emergency room yesterday for concerns of epigastric abdominal pain and which she states that an ERCP was performed at [place] approximately one week ago in which "they put in a stent" CT scan impression noted interval placement of biliary stent across ampulla however there is noted development of a unilocular pancreatic pseudocyst patient was advised to follow-up with [place] however she returns today stating that she is requesting pain medications Patient returns today stating that now prescriptions were given of narcotics for pain yesterday and followed up today with Dr. Schaeffer however she needed preapproval for the prescription of Dilaudid at her pharmacy which she could not pick this up. Patient has been nauseous today however can't tolerate by mouth. Patient otherwise has been taking ibuprofen with no relief of symptoms. Denies any fever chills dysuria hematuria vaginal bleeding or discharge. (Luisito Liz) Past History Travel History Traveled to [place] past 21 day No Medical History Any Pertinent Medical History? see below for history Neurological: NONE EENT: Lasik surgery Cardiovascular: hypertension, hyperlipidemia Respiratory: asthma, obstructive sleep apnea Gastrointestinal: pancreatitis Hepatic: ? 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 Age 67. MOTHER, , Age 34; Cause: MVA (motor vehicle accident). PGA, , Age 85; Cause: Colon cancer. Hx Contributory? No (Luisito Liz) Review of Systems Review of Systems Constitutional: Reports: no symptoms. EENTM: Reports: no symptoms. Respiratory: Reports: no symptoms. Cardiovascular: Reports: no symptoms. GI: Reports: see HPI, abdominal pain. Genitourinary: Reports: no symptoms. Musculoskeletal: Reports: no symptoms. Skin: Reports: no symptoms. Neurological/Psychological: Reports: no symptoms. Hematologic/Endocrine: Reports: no symptoms. Immunologic/Allergic: Reports: no symptoms. All Other Systems: Reviewed and Negative (Luisito Liz) Physical Exam Physical Exam General Appearance: mild distress Head: atraumatic Eyes: Bilateral: normal appearance. Ears, Nose, Throat, Mouth: hearing grossly normal Neck: normal inspection Cardiovascular: regular rate/rhythm Gastrointestinal: normal bowel sounds, soft Extremities: normal range of motion Core Measures ACS in differential dx? No Sepsis Present: No Sepsis Focused Exam Completed? No (Luisito Liz) Progress Differential Diagnosis: AAA, AMI, appendicitis, biliary colic, bowel obstruction , colon cancer, cholecystitis, diverticulitis, ectopic , endometritis, esophageal varices, gastritis, hepatitis, hernia, hemorrhoids, ischemic bowel, inflamm bowel dis, intrauterine , kidney stone, ovarian cyst, ovarian torsion, pancreatitis, PID/cervicitis, peptic ulcer, PUD/GERD, perforated viscous, SBO, threatened AB, UTI/pyelo Plan of Care: Orders Procedure Date/time Status LIPASE 11/10 2221 Complete COMPREHENSIVE METABOLIC PANEL 11/10 2221 Complete CBC WITHOUT DIFFERENTIAL 11/10 2221 Complete AMYLASE 11/10 2221 Complete Laboratory Tests 11/10/17 222: Anion Gap 13, Estimated GFR > 60, BUN/Creatinine Ratio 11.7, Glucose 116 H, Calcium 9.2, Total Bilirubin 0.7, AST 18, ALT 37, Alkaline Phosphatase 147 H, Total Protein 6.3, Albumin 3.3 L, Globulin 3.0, Albumin/Globulin Ratio 1.1, Amylase 298 H, Lipase 2115 H, CBC w Diff NO MAN DIFF REQ, RBC 4.57, MCV 83.0, MCH 27.2, MCHC 32.7 L, RDW 16.0 H, MPV 8.2, Gran % 81.0 H, Lymphocytes % 11.6 L, Monocytes % 3.7, Eosinophils % 3.6, Basophils % 0.1, Absolute Granulocytes 6.7 H, Absolute Lymphocytes 1.0 L, Absolute Monocytes 0.3, Absolute Eosinophils 0.3, Absolute Basophils 0 Patient on examination has concerns of chronic pancreatitis however has known pseudocyst and which I discussed patient with Dr. Schaeffer who advised patient to be given 2 days worth of Dilaudid and to follow-up with [place]. Discussed disposition plan with patient and Dr HOROWITZ who agrees. I did call [facility] which they will approve of the prescription of Dilaudid. Patient was able tolerate by mouth prior to discharge Initial ED EKG: none (Luisito Liz) Departure Departure Disposition: HOME OR SELF CARE Condition: Stable Clinical Impression Primary Impression: Chronic pancreatitis Referrals: Bienvenido Casarez MD (PCP/Family) Additional Instructions: As discussed begin the prescription of Reglan for nausea and Dilaudid for pain, prescriptions waiting a [facility] [place], follow-up with qa specialist tomorrow. IF Symptoms worsen return to emergency room Departure Forms: Customer Survey General Discharge Information Prescriptions: Current Visit Scripts Metoclopramide HCl (Reglan) 1 TAB PO 4 TIMES/DAY PRN NAUSEA #15 TAB Hydromorphone HCl (Dilaudid) 1 TAB PO Q6 #8 TAB (Luisito Liz) PA/LEATHER ETCHER Co-Sign Statement Statement: ED Attending supervision documentation- I saw and evaluated the patient. I have also reviewed all the pertinent lab results and diagnostic results. I agree with the findings and the plan of care as documented in the PA's/LEATHER ETCHER's documentation. x I have reviewed the ED Record and agree with the PA's/LEATHER ETCHER's documentation. [] Additions or exceptions (if any) to the PAs/LEATHER ETCHER's note and plan are summarized below: [] (Kandy BRUNNER,Glen)
[2017-11-10] MEDS ORDERED: REGLAN10 M1 PO (23:43)
[2017-11-10] MEDS ORDERED: DILAUDID2 M1 PO ×2 (23:43→23:47)
[2017-11-10 23:51] VITALS: BP 95/52
== END 2017-11-11 00:01 ==
LOC: ERH 21:30
PROVIDERS: Emergency Medicine
DX: K86.1 Other chronic pancreatitis (principal)

== ENCOUNTER 2017-11-11 11:09 | Inpatient (IN) | payer OTHER ==
[~2017-11-11] VITALS: Ht 157.5 cm; Wt 97.5 kg
[~2017-11-11 11:09] MED LIST changes: +DILAUDID2 M1 PO; +REGLAN10 M1 PO
--- NOTE | 2017-11-11 11:38 | ED GI/GU/ABDOMINAL COMPLAINT ---
History of Present Illness General Chief Complaint: Abdominal Pain/Flank Pain Stated Complaint: ?PANCREAITIS Source: patient, old records, PCP Exam Limitations: no limitations Vital Signs & Intake/Output Vital Signs & Intake/Output Vital Signs Date Time Temp Pulse Resp B/P B/P Pulse O2 O2 Flow FiO2 Mean Ox Delivery Rate 11/11 1203 98 16 127/76 11/11 1119 98.3 134 16 106/00 99 Room Air Allergies Coded Allergies: Sulfa (Sulfonamide Antibiotics) (Intermediate, RASH 10/03/17) valsartan (From DIOVAN) (RETAIN WATER PER PT 10/03/17) Reconcile Medications Amlodipine Besylate 5 MG TABLET 2 TAB PO DAILY BP (Reported) Clonazepam 1 MG TABLET 1 TAB PO BIDP PRN ANXIETY (Reported) Duloxetine HCl 60 MG CAPSULE.DR 2 CAP PO DAILY MENTAL HEALTH/NERVE PAIN ( Reported) Hydromorphone HCl (Dilaudid) 2 MG TABLET 1 TAB PO Q6 PAIN Lipase/Protease/Amylase (Creon Dr 6,000 Units Capsule) 6K-19K-30K CAPSULE.DR 1 TAB PO WITH MEALS UNKNOWN (Reported) Metoclopramide HCl (Reglan) 10 MG TABLET 1 TAB PO 4 TIMES/DAY PRN NAUSEA Metoprolol Succinate 100 MG TAB.ER.24H 1 TAB PO DAILY HEART/BP (Reported) Montelukast Sodium 10 MG TABLET 1 TAB PO DAILY ALLERGIES (Reported) Ondansetron HCl (Zofran) 4 MG TABLET 1 TAB PO Q6-8P PRN Nausea . Oxycodone HCl/Acetaminophen (Percocet 5-325 MG Tablet) 5 MG-325 MG TABLET 1-2 TAB PO Q6P PRN PAIN Pantoprazole Sodium 40 MG TABLET.DR 1 TAB PO DAILY GI (Reported) Pregabalin (Lyrica) 75 MG CAPSULE 1 CAP PO BID NEUROPATHY (Reported) Promethazine HCl 12.5 MG TABLET 1 TAB PO Q6-8 NAUSEA Spironolactone 100 MG TABLET 1 TAB PO DAILY HTN (Reported) Trazodone HCl 50 MG TABLET 1-2 TAB PO QPM SLEEP (Reported) Triage Note: RECEIVED 47 YO FEMALE SENT BY DR HATCH FOR "MY PANCREATITIS" ACCORDING TO PT. PT HAS BEEN HERE RECENTLY MULTIPLE TIMES FOR THE SAME. PT REPORTS SEVERE NAUSEA WITH VOMITING X 4 THIS AM. PAIN LEVEL 3/10 Triage Nurses Notes Reviewed? yes ? N Is pt currently ? No HPI: Patient presents with her third ER visit in 3 days for pancreatitis. Patient had a recent ERCP and had a stent placement. She has a known pseudocyst. Patient is supposed to go back in mid-November for another stent and drainage of the pseudocyst. Patient has been unable to control the pain and vomiting at home. Patient spoke to her agricultural crop farm manager who recommended that she come in to the hospital for IV fluids, antiemetics and IV pain control. The pain is periumbilical and radiates to her back. Pain is constant. The pain decreases when she takes oral pain medications. The pain is sharp and crampy in nature. Past History Travel History Traveled to [place] past 21 day No Medical History Any Pertinent Medical History? see below for history Neurological: NONE EENT: Lasik surgery Cardiovascular: hypertension, hyperlipidemia Respiratory: asthma, obstructive sleep apnea Gastrointestinal: pancreatitis Hepatic: ? 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 Age 67. MOTHER, , Age 34; Cause: MVA (motor vehicle accident). PGA, , Age 85; Cause: Colon cancer. Hx Contributory? No Review of Systems Review of Systems Constitutional: Reports: no symptoms. EENTM: Reports: no symptoms. Respiratory: Reports: no symptoms. Cardiovascular: Reports: no symptoms. GI: Reports: see HPI, abdominal pain, nausea, vomiting. Genitourinary: Reports: no symptoms. Musculoskeletal: Reports: no symptoms. Skin: Reports: no symptoms. Neurological/Psychological: Reports: no symptoms. Hematologic/Endocrine: Reports: no symptoms. Immunologic/Allergic: Reports: no symptoms. All Other Systems: Reviewed and Negative Physical Exam Physical Exam General Appearance: well developed/nourished, alert, awake, anxious, moderate distress Head: atraumatic, normal appearance Eyes: Bilateral: PERRL, EOMI. Ears, Nose, Throat, Mouth: hearing grossly normal, dRY MUCOSA Neck: normal inspection, supple, full range of motion Respiratory: normal breath sounds, chest non-tender, no respiratory distress, lungs clear Cardiovascular: regular rate/rhythm, normal peripheral pulses Gastrointestinal: normal bowel sounds, soft, no organomegaly, tenderness Back: normal inspection, normal range of motion Extremities: normal range of motion Neurologic/Psych: no motor/sensory deficits, awake, alert, oriented x 3, normal mood/affect Skin: intact, normal color, warm/dry Core Measures ACS in differential dx? No Sepsis Present: No Sepsis Focused Exam Completed? No Progress Differential Diagnosis: PANCREATITIS WITH PSEUDOCYST FORMATION Plan of Care: Orders Procedure Date/time Status Nothing by Mouth 11/11 D Active Patient Data 11/11 1213 Active ED Holding Orders 11/11 1207 Active Admit to inpatient 11/11 1207 Active Vital Signs 11/11 1207 Active Code Status 11/11 1207 Active URINALYSIS 11/11 1113 Active LIPASE 11/11 1113 Complete COMPREHENSIVE METABOLIC PANEL 11/11 1113 Complete CBC WITHOUT DIFFERENTIAL 11/11 1113 Active AMYLASE 11/11 1113 Complete Laboratory Tests 11/11/17 1158: Anion Gap 18 H, Estimated GFR > 60, BUN/Creatinine Ratio 15.0, Glucose 136 H, Calcium 9.4, Total Bilirubin 1.3, AST 15, ALT 31, Alkaline Phosphatase 150 H, Total Protein 6.4, Albumin 3.3 L, Globulin 3.1, Albumin/Globulin Ratio 1.1, Amylase 148 H, Lipase 895 H, CBC w Diff MAN DIFF ORDERED, RBC 5.14, MCV 82.4, MCH 27.5, MCHC 33.4, RDW 15.3 H, MPV 8.3, Gran % 90.5 H, Lymphocytes % 3.9 L, Monocytes % 4.9, Eosinophils % 0.3, Basophils % 0.4, Absolute Granulocytes 11.8 H, Segmented Neutrophils Pending, Absolute Lymphocytes 0.5 L, Absolute Monocytes 0.6, Absolute Eosinophils 0, Absolute Basophils 0 Initial ED EKG: none Departure Departure Disposition: STILL A PATIENT Condition: Stable Clinical Impression Primary Impression: Pancreatitis Referrals: Bienvenido Casarez MD (PCP/Family) Departure Forms: Customer Survey General Discharge Information Admission Note Spoke With: Carlito BRUNNER,Ramy Documentation of Exam: Documentation of any treatments & extenuating circumstances including Concerns Regarding Discharge (functional status, medication knowledge or non-compliance, living conditions, etc.) that warrant an admission rather than observation: [ Patient to be admitted for IV fluids, IV antiemetics, pain control, gastroenterology consultation]
[2017-11-11 12:12] LABS: ABSOLUTE BASOPHIL COUNT 0 /CUMM (0.0-0.2); ABSOLUTE EOSINOPHIL COUNT 0 /CUMM (0.0-0.7); ABSOLUTE GRANULOCYTE CT 11.8 /CUMM (1.4-6.5); ABSOLUTE LYMPH COUNT 0.5 /CUMM (1.2-3.4); ABSOLUTE MONOCYTE COUNT 0.6 /CUMM (0.10-0.60); BASOPHIL % 0.4 % (0.0-2.0); EOSINOPHIL % 0.3 % (0-5); GRANULOCYTE % 90.5 % (42.2-75.2); HEMATOCRIT 42.3 % (37-47); MEAN CORPUSCULAR HGB 27.5 PG (27.0-31.0); MEAN CORPUSCULAR HGB CONC 33.4 G/DL (33.0-37.0); MEAN CORPUSCULAR VOLUME 82.4 FL (81.0-99.0); MEAN PLATELET VOLUME 8.3 FL (7.4-10.4); PLATELET COUNT 294 /CUMM (130-400); RBC DISTRIBUTION WIDTH 15.3 % (11.5-14.5); RED BLOOD CELL CT 5.14 /CUMM (4.20-5.40)
--- NOTE | 2017-11-11 13:34 | PN- Att Addend ---
Attending Addendum Attending Brief Note 47 y/o F with pmh sig for HTN, HLD, anxiety, depression, panic attacks, a 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 Status post cystogastrostomy procedure in July 2017. Admitted to [facility] last month with acute pancreatitis. She was discharged home and then advised to follow-up with Dr. Thomas at [facility]. She claimed that she followed up and Dr. Thomas performed ERCP as well as EUS. According to the patient her pancreatic duct had a stricture that was really bad that it could not be opened up. She could only have 1 stent placed. She was advised to follow-up on December 02 for the second part of the procedure. This procedure was done about a week ago from today. She started developing abdominal pain about 3 days back. She said that it was getting worse and nausea was getting severe to the point that she started to throw up. She has visited emergency room 2 days in a row. She was sent home with antiemetics and pain medications but symptoms got progressively worse. She is vomiting yellowish material. She did complain of some chills. She denies any fevers. She denies any hematemesis. Her pain is mostly in the left upper quadrant and epigastric region. There is radiation to the back. She grades the pain as 10 out of 10. Vital Signs Date Time Temp Pulse Resp B/P B/P Pulse O2 O2 Flow FiO2 Mean Ox Delivery Rate 11/11 1203 98 16 127/76 11/11 1119 98.3 134 16 106/00 99 Room Air on exam; aox3, nad. cv; s1,s2, rrr resp; clear abd; soft, tender in luq, epigsatrium, bs+ ext; no edema Laboratory Tests 11/11 1158 Chemistry Sodium (137 - 145 mmol/L) 143 Potassium (3.5 - 5.1 mmol/L) 4.0 Chloride (98 - 107 mmol/L) 105 Carbon Dioxide (22 - 30 mmol/L) 21 L Anion Gap (5 - 16) 18 H BUN (7 - 17 mg/dL) 9 Creatinine (0.5 - 1.0 mg/dL) 0.6 Estimated GFR (>60 ml/min) > 60 BUN/Creatinine Ratio (7 - 25 %) 15.0 Glucose (65 - 99 mg/dL) 136 H Calcium (8.4 - 10.2 mg/dL) 9.4 Total Bilirubin (0.2 - 1.3 mg/dL) 1.3 AST (14 - 36 U/L) 15 ALT (9 - 52 U/L) 31 Alkaline Phosphatase (<127 U/L) 150 H Total Protein (6.3 - 8.2 g/dL) 6.4 Albumin (3.5 - 5.0 g/dL) 3.3 L Globulin (1.9 - 4.2 gm/dL) 3.1 Albumin/Globulin Ratio (1.1 - 2.2 %) 1.1 Amylase (30 - 110 U/L) 148 H Lipase (23 - 300 U/L) 895 H Hematology CBC w Diff MAN DIFF ORDERED WBC (4.8 - 10.8 /CUMM) 13.0 H RBC (4.20 - 5.40 /CUMM) 5.14 Hgb (12.0 - 16.0 G/DL) 14.1 Hct (37 - 47 %) 42.3 MCV (81.0 - 99.0 FL) 82.4 MCH (27.0 - 31.0 PG) 27.5 MCHC (33.0 - 37.0 G/DL) 33.4 RDW (11.5 - 14.5 %) 15.3 H Plt Count (130 - 400 /CUMM) 294 MPV (7.4 - 10.4 FL) 8.3 Gran % (42.2 - 75.2 %) 90.5 H Lymphocytes % (20.5 - 51.1 %) 3.9 L Monocytes % (1.7 - 9.3 %) 4.9 Eosinophils % (0 - 5 %) 0.3 Basophils % (0.0 - 2.0 %) 0.4 Absolute Granulocytes (1.4 - 6.5 /CUMM) 11.8 H Segmented Neutrophils (42.2 - 75.2 %) Pending Absolute Lymphocytes (1.2 - 3.4 /CUMM) 0.5 L Absolute Monocytes (0.10 - 0.60 /CUMM) 0.6 Absolute Eosinophils (0.0 - 0.7 /CUMM) 0 Absolute Basophils (0.0 - 0.2 /CUMM) 0 CT abd/pelvis with IV contrast done on November 09: IMPRESSION: 1. Interval placement of a biliary stent across the ampulla. 2. In the interim since the prior studies there has been development of a 3.1 x 3.8 x 4.6 cm unilocular pancreatic pseudocyst centered in the proximal pancreatic body, and a second 0.8 cm cystic structure in the pancreatic head, also suggestive of a pseudocyst. 3. There remains a beaded pancreatic ductal dilatation, similar to the prior. Some mild peripancreatic stranding, slightly improved from 09/22/2017. 4. Stable fluid-filled duodenal diverticulum. Stable changes after cholecystectomy with stable mild central intrahepatic ductal dilatation. 5. The dominant pseudocyst creates mild mass effect upon the portal vein which remains patent. A/P; 47 y/o F with pmh sig for HTN, HLD, anxiety, depression, panic attacks, a 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 Status post cystogastrostomy procedure in July 2017. Admitted to [facility] last month with acute pancreatitis. She was discharged home and then advised to follow-up with Dr. Thomas at [facility]. She claimed that she followed up and Dr. Thomas performed ERCP as well as EUS. Had a pancreatic stent placed and has developed 2 pseudocyst. Now admitted with abdominal pain with nausea and vomiting likely secondary to acute recurrent pancreatitis. Patient admitted to medicine. She will be kept nothing by mouth. She will be started on IV fluids. She'll be treated symptomatically with antiemetics as well as pain medications. Patient denies use of any alcohol, use of any fatty meal or any change in her medications. Please confirm and continue the home medications. GI will be consulted. Patient does have leukocytosis likely secondary to pancreatitis. We'll monitor the white count. Pharmacologic DVT px. Full code.
--- NOTE | 2017-11-11 14:23 | Cons- Gastroenterology ---
General Information and HPI Consulting Request Date of Consult: 11/11/17 Requested By: Ramy Esteban MD Reason for Consult: 1. Acute on chronic pancreatitis 2. Abdominal pain 3. Nausea and vomiting 4. Pancreatic pseudocyst 5. Stricture of pancreatic duct Source of Information: patient, electronic medical record History of Present Illness: Ms. Kwok is a 47-year-old female well known to me. Patient had gallstone pancreatitis in May 2017 which is been complicated by development of multiple episodes of acute pancreatitis as well as pancreatic pseudocyst formation. She underwent a cyst gastrostomy by Dr. Pedro Luis feliz on at [facility]. Over 1200 mL of fluid was drained from a large 11 cm collection which was completely communicating with a second 7 cm collection as well as smaller collections. She had done well briefly however began to have repeated episodes of pain. She had another CT scan recently the results of which are as follows. FINDINGS: LUNG BASES: There are dependent changes in the lung bases bilaterally. The imaged heart and pericardium appear unremarkable. LIVER, GALLBLADDER, AND BILIARY TREE: No discrete hepatic lesions. There is stable minor central intrahepatic biliary ductal prominence without progression. There are stable changes after cholecystectomy. PANCREAS: In the interim since the prior study there has been development of a unilocular cystic structure in the proximal pancreatic body measuring 3.1 x 3.8 x 4.6 cm, compatible with a pancreatic pseudocyst. A second unilocular cystic structure in the pancreatic head (series 602 image [id number]) measures 8 mm, suggesting an additional pseudocyst. There remains beaded pancreatic ductal dilatation in the pancreatic body and tail. There is a newly visualized stent extending from the duodenum across the ampulla. There is mild peripancreatic fluid and stranding, slightly improved. SPLEEN: Unremarkable. ADRENAL GLANDS: Unremarkable. KIDNEYS AND URETERS: The kidneys are normal in size, shape, and attenuation. No hydronephrosis, hydroureter, or calculi seen. No perinephric stranding. There is a stable 3.1 cm hypoattenuating focus arising exophytically along the anterior aspect of the left kidney compatible with a cyst. BLADDER: Unremarkable. GASTROINTESTINAL TRACT: Loops of small and large bowel appear unremarkable. An appendix is not definitively visualized. There appears to be a duodenal diverticulum which is predominantly fluid-filled, unchanged. There is some mild fluid along the left paracolic gutter. ABDOMINAL WALL: There is a tiny periumbilical fat-containing hernia. LYMPH NODES: No definitive adenopathy. VASCULAR: The portal vein appears patent. There is mild mass effect upon it due to the dominant pseudocyst. The superior mesenteric vein also appears patent. The aorta is normal in caliber. PELVIC VISCERA: There is a right adnexal cyst measuring 4.5 cm, likely physiologic. There is a small amount of fluid in the cul-de-sac. OSSEOUS STRUCTURES: There are 5 nonrib-bearing lumbar type vertebral bodies. There is moderate degenerative change at L5-S1 with intervertebral disc height loss, vacuum phenomenon, endplate sclerosis and spurring as well as advanced facet hypertrophy without evidence of spondylolyses. There are degenerative changes at the pubic symphysis. IMPRESSION: 1. Interval placement of a biliary stent across the ampulla. 2. In the interim since the prior studies there has been development of a 3.1 x 3.8 x 4.6 cm unilocular pancreatic pseudocyst centered in the proximal pancreatic body, and a second 0.8 cm cystic structure in the pancreatic head, also suggestive of a pseudocyst. 3. There remains a beaded pancreatic ductal dilatation, similar to the prior. Some mild peripancreatic stranding, slightly improved from 09/22/2017. 4. Stable fluid-filled duodenal diverticulum. Stable changes after cholecystectomy with stable mild central intrahepatic ductal dilatation. 5. The dominant pseudocyst creates mild mass effect upon the portal vein which remains patent. She has recently been seen in the ED twice within the past 48 hours. She has had increasing abdominal pain which has been difficult to control and call me this morning when she developed persistent unremitting nausea and vomiting unresponsive to metoclopramide or Phenergan. She has had no fever or shaking chills. She has had significant weight loss since onset of this illness. Allergies/Medications Allergies: Coded Allergies: Sulfa (Sulfonamide Antibiotics) (Intermediate, RASH 10/03/17) valsartan (From DIOVAN) (RETAIN WATER PER PT 10/03/17) Home Med List: Amlodipine Besylate 5 MG TABLET 2 TAB PO DAILY BP (Reported) Clonazepam 1 MG TABLET 1 TAB PO BIDP PRN ANXIETY (Reported) Duloxetine HCl 60 MG CAPSULE.DR 2 CAP PO DAILY MENTAL HEALTH/NERVE PAIN ( Reported) Hydromorphone HCl (Dilaudid) 2 MG TABLET 1 TAB PO Q6 PAIN Lipase/Protease/Amylase ([place] Dr 6,000 Units Capsule) [id number] CAPSULE.DR 1 TAB PO WITH MEALS UNKNOWN (Reported) Metoclopramide HCl (Reglan) 10 MG TABLET 1 TAB PO 4 TIMES/DAY PRN NAUSEA Metoprolol Succinate 100 MG TAB.ER.24H 1 TAB PO DAILY HEART/BP (Reported) Montelukast Sodium 10 MG TABLET 1 TAB PO DAILY ALLERGIES (Reported) Ondansetron HCl (Zofran) 4 MG TABLET 1 TAB PO Q6-8P PRN Nausea . Oxycodone HCl/Acetaminophen (Percocet 5-325 MG Tablet) 5 MG-325 MG TABLET 1-2 TAB PO Q6P PRN PAIN Pantoprazole Sodium 40 MG TABLET.DR 1 TAB PO DAILY GI (Reported) Pregabalin (Lyrica) 75 MG CAPSULE 1 CAP PO BID NEUROPATHY (Reported) Promethazine HCl 12.5 MG TABLET 1 TAB PO Q6-8 NAUSEA Spironolactone 100 MG TABLET 1 TAB PO DAILY HTN (Reported) Trazodone HCl 50 MG TABLET 1-2 TAB PO QPM SLEEP (Reported) Current Medications: Current Medications Sig/Anay Start time Last Medication Dose Route Stop Time Status Admin Hydromorphone HCl 0 .STK-MED ONE 11/11 1344 DC .ROUTE Hydromorphone HCl 1 MG ONCE ONE 11/11 1115 DC 11/11 IV 11/11 1116 1338 Ondansetron HCl 0 .STK-MED ONE 11/11 1152 DC .ROUTE Ondansetron HCl 4 MG ONCE ONE 11/11 1115 DC IV 11/11 1116 Promethazine HCl 0 .STK-MED ONE 11/11 1204 DC .ROUTE Promethazine HCl 25 MG ONCE ONE 11/11 1200 DC 11/11 IM 11/11 1201 1203 Sodium Chloride 1,000 ML BOLUS ONE 11/11 1115 DC 11/11 IV 11/11 1214 1148 Past History Travel History Traveled to [place] past 21 day No Medical History Neurological: NONE EENT: Lasik surgery Cardiovascular: hypertension, hyperlipidemia Respiratory: asthma, obstructive sleep apnea Gastrointestinal: pancreatitis Hepatic: ? 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 Age 67. MOTHER, , Age 34; Cause: MVA (motor vehicle accident). PGA, , Age 85; Cause: Colon cancer. Psychosocial History Who Do You Live With? spouse Services at Home: None Primary Language: Azerbaijani ETOH Use: denies use Illicit Drug Use: denies illicit drug use Living Will? 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 Ambulation: independent IADLs Independent: shopping, housework, finances, food prep, telephone, transportation , medication admin. Review of Systems Review of Systems Constitutional: Reports: malaise, weakness. Denies: fever. EENTM: Reports: no symptoms. Cardiovascular: Reports: no symptoms. Respiratory: Reports: no symptoms. GI: Reports: see HPI. Genitourinary: Reports: no symptoms. Musculoskeletal: Reports: no symptoms. Skin: Reports: no symptoms. Neurological/Psychological: Reports: no symptoms. Hematologic/Endocrine: Reports: no symptoms. Exam & Diagnostic Data Vital Signs and I&O Vital Signs Date Time Temp Pulse Resp B/P B/P Pulse O2 O2 Flow FiO2 Mean Ox Delivery Rate 11/11 1337 100 16 137/79 97 Room Air 11/11 1203 98 16 127/76 11/11 1119 98.3 134 16 106/00 99 Room Air Intake & Output 11/11 1600 11/11 0400 11/10 1600 11/10 0400 11/09 1600 11/09 0400 Intake Total 0 Output Total Balance 0 Intake, Oral 0 Patient 215 lb Weight Weight Estimated Measurement Method Physical Exam General Appearance: well developed/nourished, mild distress, moderate distress Head: atraumatic, normal appearance Eyes: Bilateral: normal appearance. Ears, Nose, Throat: hearing grossly normal Neck: normal inspection, supple, full range of motion Cardiovascular: normal S1 and S2 without rub, murmur, or gallop. Gastrointestinal: normal bowel sounds, soft, there is upper abdominal tenderness without rebound or guarding Back: normal inspection Extremities: no edema Neurologic/Psych: awake, alert, oriented x 3, normal mood/affect Cranial Nerves: cranial nerves II through XII are grossly intact Skin: intact, normal color Results Pertinent Lab Results: Laboratory Tests 11/11 1158 Chemistry Sodium (137 - 145 mmol/L) 143 Potassium (3.5 - 5.1 mmol/L) 4.0 Chloride (98 - 107 mmol/L) 105 Carbon Dioxide (22 - 30 mmol/L) 21 L Anion Gap (5 - 16) 18 H BUN (7 - 17 mg/dL) 9 Creatinine (0.5 - 1.0 mg/dL) 0.6 Estimated GFR (>60 ml/min) > 60 BUN/Creatinine Ratio (7 - 25 %) 15.0 Glucose (65 - 99 mg/dL) 136 H Calcium (8.4 - 10.2 mg/dL) 9.4 Total Bilirubin (0.2 - 1.3 mg/dL) 1.3 AST (14 - 36 U/L) 15 ALT (9 - 52 U/L) 31 Alkaline Phosphatase (<127 U/L) 150 H Total Protein (6.3 - 8.2 g/dL) 6.4 Albumin (3.5 - 5.0 g/dL) 3.3 L Globulin (1.9 - 4.2 gm/dL) 3.1 Albumin/Globulin Ratio (1.1 - 2.2 %) 1.1 Amylase (30 - 110 U/L) 148 H Lipase (23 - 300 U/L) 895 H Hematology CBC w Diff MAN DIFF ORDERED WBC (4.8 - 10.8 /CUMM) 13.0 H RBC (4.20 - 5.40 /CUMM) 5.14 Hgb (12.0 - 16.0 G/DL) 14.1 Hct (37 - 47 %) 42.3 MCV (81.0 - 99.0 FL) 82.4 MCH (27.0 - 31.0 PG) 27.5 MCHC (33.0 - 37.0 G/DL) 33.4 RDW (11.5 - 14.5 %) 15.3 H Plt Count (130 - 400 /CUMM) 294 MPV (7.4 - 10.4 FL) 8.3 Gran % (42.2 - 75.2 %) 90.5 H Lymphocytes % (20.5 - 51.1 %) 3.9 L Monocytes % (1.7 - 9.3 %) 4.9 Eosinophils % (0 - 5 %) 0.3 Basophils % (0.0 - 2.0 %) 0.4 Absolute Granulocytes (1.4 - 6.5 /CUMM) 11.8 H Segmented Neutrophils (42.2 - 75.2 %) 86 H Band Neutrophils (0.0 - 5.0 %) 7 H Absolute Lymphocytes (1.2 - 3.4 /CUMM) 0.5 L Lymphocytes (20.5 - 51.1 %) 4 L Monocytes (1.7 - 9.3 %) 3 Absolute Monocytes (0.10 - 0.60 /CUMM) 0.6 Absolute Eosinophils (0.0 - 0.7 /CUMM) 0 Absolute Basophils (0.0 - 0.2 /CUMM) 0 Platelet Estimate (ADEQUATE) ADEQUATE Normocytic RBCs VERIFIED Normochromic RBCs VERIFIED Assessment/Plan Assessment/Recommendations: ASSESSMENT: 1. Pancreatic pseudocyst as well as pancreatic duct stricture. Dr. Adal Thomas has recently reviewed Sophie is CT scan. Her pseudocyst has an intrapancreatic component and would benefit from a Borges's papillary drainage however because of her pancreatic duct stricture it will be difficult to traverse. She is scheduled for an ERCP on 12/02. And does not want to move up the dentate. He would prefer for her to cool off a little prior to ERCP. 2. Nausea, vomiting, abdominal pain --this is unremitting and patient has been unable to manage at home. 3. Elevated lipase. Patient may have mild underlying acute on chronic pancreatitis there is some fluid in the pelvis on her most recent CT scan. RECOMMENDATIONS: 1. Admit for observation at a minimum. If unable to make patient comfortable may need to convert to general admission. 2. Would give Dilaudid for analgesia. Patient has had no relief with Percocet. 3. Would hydrate continuously following strict I's and O's. 4. Clear liquid diet 5. Follow labs Consult Acknowledgment - Thank you for your consult request.
--- NOTE | 2017-11-11 15:00 | History & Physical ---
Brennen Stanley 11/11/17 1457: General Information and HPI MD Statement: I have seen and personally examined CR KWOK and documented this H&P. The patient is a 47 year old F who presented with a patient stated chief complaint of abdominal pain, nausea and vomiting. Source of Information: patient, electronic medical record Exam Limitations: no limitations History of Present Illness: Ms. Kwok is a 47-year-old woman with past medical history of gallstone pancreatitis in May 2017 status post ERCP, status post cholecystectomy and eventual pseudocyst formation which was followed by endoscopic drainage, was recently at [facility] last week for stent placement by Dr. Thomas for her pancreatic duct stricture and dilatation. Following the procedure, patient was doing fairly well eating diet as tolerated, avoiding red meat-eating chicken and turkey, but by 11/09/2018 she started experiencing abdominal pain to a point that she had to come to the ED the following morning. In the ED she was given pain medications IV fluids, which resolved her pain and she was sent home. Following that she started developing episodes of nausea, vomiting and was unable to keep anything down. She visits to ED once more before today, and is being admitted to general medicine floor for persistent nausea and vomiting. She did get a CT scan of the abdomen 11/09/2017 which shows interval placement of a biliary stent across the ampulla. She also has a pancreatic pseudocyst and the proximal pancreatic body and another one in the pancreatic head. She denies any fevers or chills. She denies any diarrhea or constipation. Allergies/Medications Allergies: Coded Allergies: Sulfa (Sulfonamide Antibiotics) (Intermediate, RASH 10/03/17) valsartan (From DIOVAN) (RETAIN WATER PER PT 10/03/17) Home Med list Amlodipine Besylate 5 MG TABLET 2 TAB PO DAILY BP (Reported) Clonazepam 1 MG TABLET 1 TAB PO BIDP PRN ANXIETY (Reported) Duloxetine HCl 60 MG CAPSULE.DR 2 CAP PO DAILY MENTAL HEALTH/NERVE PAIN ( Reported) Hydromorphone HCl (Dilaudid) 2 MG TABLET 1 TAB PO Q6 PAIN Lipase/Protease/Amylase ([place] Dr 6,000 Units Capsule) [id number] CAPSULE.DR 1 TAB PO WITH MEALS UNKNOWN (Reported) Metoclopramide HCl (Reglan) 10 MG TABLET 1 TAB PO 4 TIMES/DAY PRN NAUSEA Metoprolol Succinate 100 MG TAB.ER.24H 1 TAB PO DAILY HEART/BP (Reported) Montelukast Sodium 10 MG TABLET 1 TAB PO DAILY ALLERGIES (Reported) Ondansetron HCl (Zofran) 4 MG TABLET 1 TAB PO Q6-8P PRN Nausea . Oxycodone HCl/Acetaminophen (Percocet 5-325 MG Tablet) 5 MG-325 MG TABLET 1-2 TAB PO Q6P PRN PAIN Pantoprazole Sodium 40 MG TABLET.DR 1 TAB PO DAILY GI (Reported) Pregabalin (Lyrica) 75 MG CAPSULE 1 CAP PO BID NEUROPATHY (Reported) Promethazine HCl 12.5 MG TABLET 1 TAB PO Q6-8 NAUSEA Spironolactone 100 MG TABLET 1 TAB PO DAILY HTN (Reported) Trazodone HCl 50 MG TABLET 1-2 TAB PO QPM SLEEP (Reported) Past History Travel History Traveled to [place] past 21 day No Medical History Blood Transfusion Hx: No Neurological: NONE EENT: Lasik surgery Cardiovascular: hypertension, hyperlipidemia Respiratory: asthma, obstructive sleep apnea Gastrointestinal: pancreatitis Hepatic: ? 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 Age 67. MOTHER, , Age 34; Cause: MVA (motor vehicle accident). PGA, , Age 85; Cause: Colon cancer. Psychosocial History Where do you live? Home Who Do You Live With? spouse Services at Home: None Primary Language: [place] Smoking Status: Never Smoked ETOH Use: denies use Illicit Drug Use: denies illicit drug use Living Will? 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 Ambulation: independent IADLs Independent: shopping, housework, finances, food prep, telephone, transportation , medication admin. Review of Systems Review of Systems Constitutional: Reports: see HPI. Exam & Diagnostic Data Last 24 Hrs of Vital Signs/I&O Vital Signs Date Time Temp Pulse Resp B/P B/P Pulse O2 O2 Flow FiO2 Mean Ox Delivery Rate 11/11 1337 100 16 137/79 97 Room Air 11/11 1203 98 16 127/76 11/11 1119 98.3 134 16 106/00 99 Room Air Intake & Output 11/11 1600 11/11 0800 11/11 0000 Intake Total 0 Output Total Balance 0 Intake, Oral 0 Patient 215 lb Weight Weight Reported by Patient Measurement Method Physical Exam General Appearance Alert, Oriented X3, Cooperative HEENT Atraumatic, PERRLA, EOMI Neck Supple, No JVD Cardiovascular Regular Rate, Normal S1, Normal S2 Lungs Clear to Auscultation, Normal Air Movement Abdomen Normal Bowel Sounds, Soft, Tenderness to palpation in epigastric region and RUQ. Extremities No Clubbing, No Cyanosis, No Edema Last 24 Hrs of Labs/Dangelo: Laboratory Tests 11/11/17 1158: Anion Gap 18 H, Estimated GFR > 60, BUN/Creatinine Ratio 15.0, Glucose 136 H, Calcium 9.4, Total Bilirubin 1.3, AST 15, ALT 31, Alkaline Phosphatase 150 H, Total Protein 6.4, Albumin 3.3 L, Globulin 3.1, Albumin/Globulin Ratio 1.1, Amylase 148 H, Lipase 895 H, CBC w Diff MAN DIFF ORDERED, RBC 5.14, MCV 82.4, MCH 27.5, MCHC 33.4, RDW 15.3 H, MPV 8.3, Gran % 90.5 H, Lymphocytes % 3.9 L, Monocytes % 4.9, Eosinophils % 0.3, Basophils % 0.4, Absolute Granulocytes 11.8 H, Segmented Neutrophils 86 H, Band Neutrophils 7 H, Absolute Lymphocytes 0.5 L, Lymphocytes 4 L, Monocytes 3, Absolute Monocytes 0.6, Absolute Eosinophils 0 , Absolute Basophils 0, Platelet Estimate ADEQUATE, Normocytic RBCs VERIFIED, Normochromic RBCs VERIFIED Diagnostic Data Other Results CT A and P: IMPRESSION: 1. Interval placement of a biliary stent across the ampulla. 2. In the interim since the prior studies there has been development of a 3.1 x 3.8 x 4.6 cm unilocular pancreatic pseudocyst centered in the proximal pancreatic body, and a second 0.8 cm cystic structure in the pancreatic head, also suggestive of a pseudocyst. 3. There remains a beaded pancreatic ductal dilatation, similar to the prior. Some mild peripancreatic stranding, slightly improved from 09/22/2017. 4. Stable fluid-filled duodenal diverticulum. Stable changes after cholecystectomy with stable mild central intrahepatic ductal dilatation. 5. The dominant pseudocyst creates mild mass effect upon the portal vein which remains patent. Assessment/Plan Assessment: Ms. Kwok with history of gallstone pancreatitis several months ago, complicated by pseudocyst requiring cystogastrostomy, recurrent attacks following resolution of the initial pseudocyst with persistent symptoms found to have a pancreatic duct stricture thought to be accounting for her recurrent attacks, seen recently at [facility] for stent placement at the stricture site, with semi-successful placement and now here with another bout of abdominal pain, nausea and vomiting. At this point, patient will be admitted to general medicine floors. 1. We will keep her n.p.o. 2. IV hydration with lactated Ringer's for at least 24-48 hours, with frequent volume status evaluation. 3. Analgesia with IV Toradol, IV Dilaudid as needed. 4. Antiemetics-Phenergan IV for nausea symptoms. 5. IV Protonix while on IV Toradol. 6. Leukocytosis. Likely reactive. Monitor fevers and white count. 6. GI consult. 7. Hypertension. Continue metoprolol, Norvasc. Holding spironolactone, may restart soon once blood pressure is more stable. 8. Anxiety and depression. Continue pregabalin, Cymbalta and Klonopin. 9. DVT prophylaxis with Lovenox. Full code. N.p.o. As Ranked By This Provider Problem List: 1. Acute pancreatitis Core Measures/Misc (02/28) Acute Coronary Syndrome ACS Diagnosis: No Congestive Heart Failure Congestive Heart Failure Diagnosis No Cerebrovascular Accident CVA/TIA Diagnosis: No VTE (View Protocol) VTE Risk Factors Acute Medical Illness No Mechanical VTE Prophylaxis d/t N/A MechProphylax Ordered No VTE Pharm Prophylaxis d/t NA PharmProphylax ordered Sepsis (View protocol) Sepsis Present: No If YES complete Sepsis Event Note If YES complete Sepsis Event Note Devin BRUNNER,Lisa 11/12/17 1108: Core Measures/Misc (02/28) Sepsis (View protocol) If YES complete Sepsis Event Note If YES complete Sepsis Event Note Attending MD Review Statement Attending Statement Attending MD Statement: examined this patient, discuss w/resident/PA/[employer] PERSONAL[employer], agreed w/resident/PA/[employer]ERSONAL[employer], reviewed EMR data (avail), discussed with nursing, discussed with case mgmt, reviewed images, amended to note Attending Assessment/Plan: Also see my separate note.
[2017-11-11 15:40] VITALS: BP 119/76
[2017-11-11 21:29] VITALS: BP 140/100
[2017-11-12 00:50] VITALS: BP 138/86
[2017-11-12 06:00] VITALS: BP 114/63
--- NOTE | 2017-11-12 06:35 | PN- Housestaff ---
Rey BRUNNER,Clemencia 11/12/17 0635: Subjective Follow-up For: Chronic pancreatitis Subjective: Patient seen and examined at bedside no overnight events. Patient complains of nausea. Patient denies abdominal pain, fever, chills. Review of Systems Constitutional: Reports: no symptoms, see HPI. Objective Last 24 Hrs of Vital Signs/I&O Vital Signs Date Time Temp Pulse Resp B/P B/P Pulse O2 O2 Flow FiO2 Mean Ox Delivery Rate 11/12 06 97.9 93 18 114/63 98 Room Air 11/12 0050 98.4 112 18 138/86 97 Room Air 11/11 2129 98.5 94 20 140/100 97 11/11 2058 Room Air 11/11 1540 97.5 67 20 119/76 98 Room Air 11/11 1337 100 16 137/79 97 Room Air 11/11 1203 98 16 127/76 11/11 1119 98.3 134 16 106/00 99 Room Air Intake & Output 11/12 0800 11/12 0000 11/11 1600 Intake Total 120 600 0 Output Total 3000 Balance -2880 600 0 Intake, IV 120 600 Intake, Oral 0 0 Output, 3000 Emesis Patient 215 lb Weight Weight Reported by Patient Measurement Method Physical Exam General Appearance: Alert, Oriented X3 Cardiovascular: Regular Rate, Normal S1, Normal S2, No Murmurs Lungs: Normal Air Movement Abdomen: Soft, No Tenderness, No Hepatospenomegaly Neurological: Normal Speech, Strength at 5/5 X4 Ext, Normal Tone, Sensation Intact Extremities: No Cyanosis, No Edema, Normal Pulses Current Medications: Current Medications Sig/Anay Start time Last Medication Dose Route Stop Time Status Admin Amlodipine Besylate 10 MG DAILY 11/12 899 AC PO Clonazepam 1 MG Q12P PRN 11/11 1430 AC PO 11/18 1429 Duloxetine HCl 120 MG DAILY 11/12 899 AC PO Enoxaparin Sodium 40 MG DAILY 11/12 899 AC SC Ferrous Sulfate 325 MG DAILY 11/11 1547 AC 11/11 PO 1637 Gabapentin 100 MG QPM 11/12 2100 AC PO Hydromorphone HCl 2 MG Q6 11/11 1800 CAN PO Hydromorphone HCl 0.6 MG Q6P PRN 11/11 1430 AC 11/12 IV 0058 Hydromorphone HCl 0 .STK-MED ONE 11/11 1344 DC .ROUTE Hydromorphone HCl 1 MG ONCE ONE 11/11 1115 DC 11/11 IV 11/11 1116 1338 Ketorolac 15 MG Q6P PRN 11/11 1430 AC Tromethamine IV Lactated Ringer's 1,000 ML Q13H 11/11 1430 AC 11/12 IV 11/13 0029 0538 Lipase/Protease/ 1 CAP TIDAC 11/11 1700 AC Amylase PO Metoclopramide HCl 10 MG 4 TIMES/DAY PRN 11/11 1430 DC PO Metoprolol Succinate 100 MG DAILY 11/12 0900 AC PO Montelukast Sodium 10 MG DAILY 11/12 09 AC PO Omeprazole 40 MG DAILY AC 11/12 0700 CAN PO Ondansetron HCl 4 MG ONCE ONE 11/12 0115 DC IV 11/12 0116 Ondansetron HCl 0 .STK-MED ONE 11/11 1152 DC .ROUTE Ondansetron HCl 4 MG ONCE ONE 11/11 1115 DC IV 11/11 1116 Oxycodone/ See Dose Q6P PRN 11/11 1430 CAN Acetaminophen Insts (1) PO Pantoprazole Sodium 40 MG DAILY 11/11 1424 AC 11/11 IV 1636 Polyethylene Glycol 17 GM AT BEDTIME 11/11 2100 AC PO Pregabalin 75 MG BID 11/12 0900 AC PO Pregabalin 75 MG BID 11/11 2100 DC PO Promethazine HCl 12.5 MG Q4P PRN 11/11 1430 AC 11/11 IV 06 1429 2138 Promethazine HCl 0 .STK-MED ONE 11/11 1204 DC .ROUTE Promethazine HCl 25 MG ONCE ONE 11/11 1200 DC 11/11 IM 11/11 1201 1203 Senna/Docusate Sodium 1 TAB AT BEDTIME 11/11 2100 AC 11/11 PO 2138 Sodium Chloride 1,000 ML BOLUS ONE 11/11 1115 DC 11/11 IV 11/11 1214 1148 Trazodone HCl 25 MG QPM 11/11 2100 AC 11/11 PO 2138 Dose Instructions: (1)Oxycodone/Acetaminophen: 1-2 TAB Last 24 Hrs of Lab/Dangelo Results Last 24 Hrs of Labs/Mics: Laboratory Tests 11/11/17 1158: Anion Gap 18 H, Estimated GFR > 60, BUN/Creatinine Ratio 15.0, Glucose 136 H, Calcium 9.4, Total Bilirubin 1.3, AST 15, ALT 31, Alkaline Phosphatase 150 H, Total Protein 6.4, Albumin 3.3 L, Globulin 3.1, Albumin/Globulin Ratio 1.1, Amylase 148 H, Lipase 895 H, CBC w Diff MAN DIFF ORDERED, RBC 5.14, MCV 82.4, MCH 27.5, MCHC 33.4, RDW 15.3 H, MPV 8.3, Gran % 90.5 H, Lymphocytes % 3.9 L, Monocytes % 4.9, Eosinophils % 0.3, Basophils % 0.4, Absolute Granulocytes 11.8 H, Segmented Neutrophils 86 H, Band Neutrophils 7 H, Absolute Lymphocytes 0.5 L, Lymphocytes 4 L, Monocytes 3, Absolute Monocytes 0.6, Absolute Eosinophils 0 , Absolute Basophils 0, Platelet Estimate ADEQUATE, Normocytic RBCs VERIFIED, Normochromic RBCs VERIFIED Assessment/Plan Assessment: Ms. 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 Assessment and plan Chronic pancreatitis with pseudocyst * Patient has been admitted in [facility] for chronic pancreatitis with pseudocyst management. Patient is on Ringer lactate at 125 mL per hour. Pain management with Dilaudid, Lyrica, gabapentin. Nausea managed by Phenergan. Patient is nothing by mouth. If the patient is not having nausea, vomiting, abdominal pain we will advance her diet today. Patient was evaluated for autoimmune pancreatitis in May 2017 which was negative. Patient was evaluated for autoimmune pancreatitis in May 2017 which was negative. * Hypertension-patient is on metoprolol and Norvasc. Spironolactone held. * Anxiety and depression-continue Klonopin. * Appreciate GI follow-up. Full code Diet-nothing by mouth DVT prophylaxis-Lovenox Problem List: 1. Chronic pancreatitis Pain Ratin Pain Location: NONE Pain Goal: Remain pain free Pain Plan: TYLENOL, DILAUDID Tomorrow's Labs & Rationales: CBC,BEP Devin BRUNNER,Lisa 11/12/17 1128: Attending MD Review Statement Attending Statement Attending MD Statement: examined this patient, discuss w/resident/PA/SMALL BRAKE FORM OPERATOR, agreed w/resident/PA/SMALL BRAKE FORM OPERATOR, reviewed EMR data (avail), discussed with nursing, discussed with case mgmt, reviewed images, amended to note Attending Assessment/Plan: Patient seen and examined, was still feeling very nauseous and threw up last night. This morning she said that the pain was slightly better. Nausea was slightly better but not completely resolved. She's not ready to try anything clear liquids yet. Vital Signs Date Time Temp Pulse Resp B/P B/P Pulse O2 O2 Flow FiO2 Mean Ox Delivery Rate 11/12 0738 97.9 93 18 11411/12 0737 97.9 93 18 11/12 0600 97.9 93 18 114/63 98 Room Air 11/12 0050 98.4 112 18 138/86 97 Room Air 11/11 2129 98.5 94 20 140/100 97 11/11 2058 Room Air 11/11 1540 97.5 67 20 119/76 98 Room Air 11/11 1337 100 16 137/79 97 Room Air 11/11 1203 98 16 127/76 on exam; aox3, nad. cv; s1,s2, rrr resp; clear abd; soft, less tender in luq, epigsatrium, bs+ ext; no edema. Laboratory Tests 11/12 11/11 1005 1158 Chemistry Sodium (137 - 145 mmol/L) 139 143 Potassium (3.5 - 5.1 mmol/L) 4.1 4.0 Chloride (98 - 107 mmol/L) 104 105 Carbon Dioxide (22 - 30 mmol/L) 25 21 L Anion Gap (5 - 16) 11 18 H BUN (7 - 17 mg/dL) 15 9 Creatinine (0.5 - 1.0 mg/dL) 0.5 0.6 Estimated GFR (>60 ml/min) > 60 > 60 BUN/Creatinine Ratio (7 - 25 %) 30.0 H 15.0 Glucose (65 - 99 mg/dL) 136 H Calcium (8.4 - 10.2 mg/dL) 9.4 Phosphorus (2.5 - 4.5 mg/dL) 3.6 Total Bilirubin (0.2 - 1.3 mg/dL) 0.8 1.3 Direct Bilirubin (< 0.4 mg/dL) 0.2 AST (14 - 36 U/L) 12 L 15 ALT (9 - 52 U/L) 27 31 Alkaline Phosphatase (<127 U/L) 102 150 H Total Protein (6.3 - 8.2 g/dL) 5.5 L 6.4 Albumin (3.5 - 5.0 g/dL) 2.7 L 3.3 L Globulin (1.9 - 4.2 gm/dL) 3.1 Albumin/Globulin Ratio (1.1 - 2.2 %) 1.1 Amylase (30 - 110 U/L) 148 H Lipase (23 - 300 U/L) 895 H Hematology CBC w Diff Pending MAN DIFF ORDERED WBC (4.8 - 10.8 /CUMM) Pending 13.0 H RBC (4.20 - 5.40 /CUMM) Pending 5.14 Hgb (12.0 - 16.0 G/DL) Pending 14.1 Hct (37 - 47 %) Pending 42.3 MCV (81.0 - 99.0 FL) Pending 82.4 MCH (27.0 - 31.0 PG) Pending 27.5 MCHC (33.0 - 37.0 G/DL) Pending 33.4 RDW (11.5 - 14.5 %) Pending 15.3 H Plt Count (130 - 400 /CUMM) Pending 294 MPV (7.4 - 10.4 FL) Pending 8.3 Gran % (42.2 - 75.2 %) 90.5 H Lymphocytes % (20.5 - 51.1 %) 3.9 L Monocytes % (1.7 - 9.3 %) 4.9 Eosinophils % (0 - 5 %) 0.3 Basophils % (0.0 - 2.0 %) 0.4 Absolute Granulocytes (1.4 - 6.5 /CUMM) 11.8 H Segmented Neutrophils (42.2 - 75.2 %) 86 H Band Neutrophils (0.0 - 5.0 %) 7 H Absolute Lymphocytes (1.2 - 3.4 /CUMM) 0.5 L Lymphocytes (20.5 - 51.1 %) 4 L Monocytes (1.7 - 9.3 %) 3 Absolute Monocytes (0.10 - 0.60 /CUMM) 0.6 Absolute Eosinophils (0.0 - 0.7 /CUMM) 0 Absolute Basophils (0.0 - 0.2 /CUMM) 0 Platelet Estimate (ADEQUATE) ADEQUATE Normocytic RBCs VERIFIED Normochromic RBCs VERIFIED A/P: 47 y/o F with pmh sig for HTN, HLD, anxiety, depression, panic attacks, a 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 Status post cystogastrostomy procedure in July 2017. Admitted to [facility] last month with acute pancreatitis. She was discharged home and then advised to follow-up with Dr. Thomas at [facility]. She claimed that she followed up and Dr. Thomas performed ERCP as well as EUS. Had a pancreatic stent placed and has developed 2 pseudocyst. Now admitted with abdominal pain with nausea and vomiting likely secondary to acute recurrent pancreatitis. We'll keep the patient nothing by mouth and continue IV fluids. Will watch the fluid status. Patient getting IV hydration. Continue current pain management. Continue antiemetics when necessary. Further GI recommendations will need to be followed. Once pain and nausea vomiting improves then patient will be started on clear liquid diet which can then be advanced slowly as patient tolerates unless GI has any different recommendations. DVT px; Lovenox.
--- NOTE | 2017-11-12 07:00 | Discharge Summary ---
Visit Information Visit Dates Admission Date: 11/11/17 Discharge Date: 11/16/17 Hospital Course Course Attending Physician: Lisa Beltran MD Primary Care Physician: Hermelindo BRUNNER,[facility] Course: Ms. Kwok is a 47-year-old woman with past medical history of gallstone pancreatitis in May 2017 status post ERCP, status post cholecystectomy and eventual pseudocyst formation which was followed by endoscopic drainage, was recently at [facility] last week for stent placement by Dr. Thomas for her pancreatic duct stricture and dilatation. Following the procedure, patient was doing fairly well eating diet as tolerated, avoiding red meat-eating chicken and turkey, but by 11/09/2018 she started experiencing abdominal pain to a point that she had to come to the ED the following morning. In the ED she was given pain medications IV fluids, which resolved her pain and she was sent home. Following that she started developing episodes of nausea, vomiting and was unable to keep anything down. She visits to ED once more before today, and is being admitted to general medicine floor for persistent nausea and vomiting. She did get a CT scan of the abdomen 11/09/2017 which shows interval placement of a biliary stent across the ampulla. She also has a pancreatic pseudocyst and the proximal pancreatic body and another one in the pancreatic head. She denies any fevers or chills. She denies any diarrhea or constipation. Hospital course Chronic pancreatitis with pseudocyst. Patient was admitted in [facility] for chronic pancreatitis pain with pseudocyst management. Patient initially was kept nothing by mouth and was treated with IV fluids and Dilaudid, Lyrica, gabapentin for pain. Patient continued having nausea and vomiting which was managed by Phenergan/Zofran. On day 3 of admission patient diet was increased from clear liquids to full liquid diet which she was able to tolerate. Simultaneously she was followed by gastroenterology who suggested to continue the current management and follow with Dr. Thomas. Patient has an appointment coming up on November [address] Thomas for possible pancreatic jejunostomy. Patient's anxiety and depression managed with Klonopin and blood pressure management with metoprolol and amlodipine. During the hospital admission her spirinoactone was held due to hypotension. Allergies: Coded Allergies: Sulfa (Sulfonamide Antibiotics) (Intermediate, RASH 10/03/17) valsartan (From DIOVAN) (RETAIN WATER PER PT 10/03/17) Pertinent Lab Results: CT abdomen and pelvis November 09 1. Interval placement of a biliary stent across the ampulla. 2. In the interim since the prior studies there has been development of a 3.1 x 3.8 x 4.6 cm unilocular pancreatic pseudocyst centered in the proximal pancreatic body, and a second 0.8 cm cystic structure in the pancreatic head, also suggestive of a pseudocyst. 3. There remains a beaded pancreatic ductal dilatation, similar to the prior. Some mild peripancreatic stranding, slightly improved from 09/22/2017. 4. Stable fluid-filled duodenal diverticulum. Stable changes after cholecystectomy with stable mild central intrahepatic ductal dilatation. 5. The dominant pseudocyst creates mild mass effect upon the portal vein which remains patent. Disposition Summary Disposition Principal Diagnosis: Acute on chronic pancreatitis Additional Diagnosis: Pseudocyst Discharge Disposition: home or self care Discharge Instructions General Discharge Information Code Status: Full Code Patient's Diet: Regular diet Patient's Activity: As tolerated Follow-Up Instructions/Appts: His follow-up with your primary care provider and fountain dispenser within 1-2 weeks of discharge. Medications at Discharge Discharge Medications: Stop taking the following medications: Pregabalin (Lyrica) 75 MG CAPSULE ORAL TWICE DAILY Qty = 60 Oxycodone HCl/Acetaminophen (Percocet 5-325 MG Tablet) 5 MG-325 MG TABLET ORAL EVERY SIX HOURS NEEDED as needed for PAIN Qty = 20 Metoclopramide HCl (Reglan) 10 MG TABLET ORAL 4 TIMES A DAY as needed for NAUSEA Qty = 15 Continue taking these medications: Metoprolol Succinate (Metoprolol Succinate) 100 MG TAB.ER.24H 1 Tablet ORAL DAILY Qty = 30 Comments: Last Taken: 11/16/17 Time: 8:59 AM Amlodipine Besylate (Amlodipine Besylate) 5 MG TABLET 2 Tablet ORAL DAILY Qty = 30 Comments: Last Taken: 11/16/17 Time: 08:59 AM Montelukast Sodium (Montelukast Sodium) 10 MG TABLET 1 Tablet ORAL DAILY Qty = 30 Comments: Last Taken: 11/16/17 Time: 8:59 AM Trazodone HCl (Trazodone HCl) 50 MG TABLET 1-2 Tablet ORAL Every night Qty = 30 Comments: Last Taken:11/15/17 Time:08:12 PM TRAZODONE HCL 25 MG GIVEN IN HOSPITAL Duloxetine HCl (Duloxetine HCl) 60 MG CAPSULE.DR 2 Capsule ORAL DAILY Qty = 60 Comments: Last Taken: 11/16/17 Time: 08:59 AM Clonazepam (Clonazepam) 1 MG TABLET 1 Tablet ORAL 2 x Daily as needed as needed for ANXIETY Qty = 60 Comments: Last Taken:11/16/17 Time:05:16 AM Ondansetron HCl (Zofran) 4 MG TABLET 1 Tablet ORAL Every 6-8 Hours as Needed as needed for Nausea Qty = 10 Instructions: . Comments: Last Taken:11/16/17 Time:05:16 AM Spironolactone (Spironolactone) 100 MG TABLET 1 Tablet ORAL DAILY Qty = 30 Comments: NOT GIVEN IN HOSPITAL Pantoprazole Sodium (Pantoprazole Sodium) 40 MG TABLET.DR 1 Tablet ORAL DAILY Qty = 30 Comments: PRILOSEC 40 MG GIVEN IN HOSP Last Taken:11/16/17 Time:05:16 AM Hydromorphone HCl (Dilaudid) 2 MG TABLET 1 Tablet ORAL EVERY SIX HOURS Qty = 8 Comments: NOT GIVEN IN HOSPITAL Start taking the following new medications: Gabapentin (Gabapentin) 100 MG CAPSULE 1 Tablet ORAL Every night Qty = 30 No Refills Comments: Last Taken:11/15/17 Time:08:12 PM Ondansetron (Ondansetron Odt) 4 MG TAB.RAPDIS 1 Tablet ORAL Every 4 hours Qty = 15 No Refills The following medications have been changed: Old: Lipase/Protease/Amylase (Clary Wells 6,000 Units Capsule) [id number] CAPSULE.DR 1 Tablet ORAL WITH MEALS Qty = 90 New: Lipase/Protease/Amylase (Creon Dr 6,000 Units Capsule) [id number] CAPSULE.DR 2 Tablet ORAL WITH MEALS Qty = 90 Comments: Last Taken:11/16/17 Time:07:30 AM Old: Promethazine HCl (Promethazine HCl) 12.5 MG TABLET 1 Tablet ORAL Every 6-8 Hours Qty = 20 New: Promethazine HCl (Promethazine HCl) 12.5 MG TABLET 1 Tablet ORAL Every 6-8 Hours as needed for nausea Qty = 20 Comments: NOT GIVEN IN HOSPITAL Copies To: Rola BRUNNER,Lorena
[2017-11-12 11:10] LABS: ABSOLUTE BASOPHIL COUNT 0 /CUMM (0.0-0.2); WHITE BLOOD CELL COUNT 7.9 /CUMM (4.8-10.8)
--- NOTE | 2017-11-12 11:11 | PN- Student ---
Subjective Subjective: Overnight: Patient had bouts of greenish/yellowish emesis Today: Patient seen and examined this morning. Patient is NPO. Complain of nausea, but no vomiting since last night. Denied headache, chest pain, SOB. Objective Objective: Vital Signs Date Time Temp Pulse Resp B/P B/P Pulse O2 O2 Flow FiO2 Mean Ox Delivery Rate 11/12 0738 97.9 93 18 114/63 11/12 0737 97.9 93 18 114/63 11/12 0600 97.9 93 18 114/63 98 Room Air 11/12 0050 98.4 112 18 138/86 97 Room Air 11/11 2129 98.5 94 20 140/100 97 11/11 2058 Room Air 11/11 1540 97.5 67 20 119/76 98 Room Air 11/11 1337 100 16 137/79 97 Room Air 11/11 1203 98 16 127/76 11/11 1119 98.3 134 16 106/00 99 Room Air Intake & Output 11/12 1600 11/12 0800 11/12 0000 Intake Total 120 600 Output Total 3000 Balance -2880 600 Intake, IV 120 600 Intake, Oral 0 Output, 3000 Emesis PE: General= Patient resting in bed in no acute distress HEENT= normocephalic, atraumatic, anicteric sclera, moist oral mucosa, no exudates Lungs= symetrical lung expansion, clear breath sounds, no added sounds CVS= regular rate and rythm, normal S1 and S2 Abd= presented bowel sounds, nondistended, mildly tender over the epigastum Neuro= normal speech Extremities= palpable pulses, no edema Results Results: Laboratory Tests 11/12/17 1005: Anion Gap 11, Estimated GFR > 60, BUN/Creatinine Ratio 30.0 H, Phosphorus 3.6, Total Bilirubin 0.8, Direct Bilirubin 0.2, AST 12 L, ALT 27, Alkaline Phosphatase 102, Total Protein 5.5 L, Albumin 2.7 L, CBC w Diff Pending, WBC Pending, RBC Pending, Hgb Pending, Hct Pending, MCV Pending, MCH Pending, MCHC Pending, RDW Pending, Plt Count Pending, MPV Pending 11/11/17 1158: Anion Gap 18 H, Estimated GFR > 60, BUN/Creatinine Ratio 15.0, Glucose 136 H, Calcium 9.4, Total Bilirubin 1.3, AST 15, ALT 31, Alkaline Phosphatase 150 H, Total Protein 6.4, Albumin 3.3 L, Globulin 3.1, Albumin/Globulin Ratio 1.1, Amylase 148 H, Lipase 895 H, CBC w Diff MAN DIFF ORDERED, RBC 5.14, MCV 82.4, MCH 27.5, MCHC 33.4, RDW 15.3 H, MPV 8.3, Gran % 90.5 H, Lymphocytes % 3.9 L, Monocytes % 4.9, Eosinophils % 0.3, Basophils % 0.4, Absolute Granulocytes 11.8 H, Segmented Neutrophils 86 H, Band Neutrophils 7 H, Absolute Lymphocytes 0.5 L, Lymphocytes 4 L, Monocytes 3, Absolute Monocytes 0.6, Absolute Eosinophils 0 , Absolute Basophils 0, Platelet Estimate ADEQUATE, Normocytic RBCs VERIFIED, Normochromic RBCs VERIFIED Assessment/Plan Assessment: 47 y/o F with PMHx of gallstone pancreatitis complicated by pseudocyst s/p cystogastrostomy, recurrent pancreatitis attacks after initial resolution of the initial pseudocyst, 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 At the time of admision labs were significant for: WBC of 13.0 w/ 91% gram, glucose 136, ALK 150, Amylase 148, Lipase 895, normal AST and ALT. Based on history, PE and labs patient seem to have acute on chronic pancreatitis inthe setting of pancreatic pseudocyst. DDx include PUD and intestinal obstruction. PUD seem unlikely in the setting of elevated amylase and lipase and no hx of chronic NSAID used. Intestinal obstuction patient may have elevated amylase and lipase specially with hx of prior abd surgeries, at this time intestinal obstruction seems unlikely because hx of pancreatitis. Patient had a workup for autoimmune pancreatitis back in May 2017. Today WBC are back to normal from 13 to 8. No abx is require at this point, no sign of necrosis. Plan: Chronic pancreatitis/pseudocyst: -Strict I&O -Monitor vitals -Serial CBC -Keep patient NPO, reassesment at afternoon if she can advance to [facility] -Cont. LR @125, watch for any sign of fluid overload -Pain control (toradol 15mg IV Q6 PRN, Dilaudid 0.6mg Q6 PRN, Lipase 1 cap PO & Lyrica 75mgPO) -200mg Tigan IM Hx of HTN -Metropolol and norvasc Hx of panic attacks -Klonopin DVT ppx Full code
[2017-11-12 11:28] LABS: ABSOLUTE EOSINOPHIL COUNT 0.2 /CUMM (0.0-0.7); ABSOLUTE MONOCYTE COUNT 0.6 /CUMM (0.10-0.60); BASOPHIL % 0.3 % (0.0-2.0); EOSINOPHIL % 2.1 % (0-5); GRANULOCYTE % 76.2 % (42.2-75.2); MEAN CORPUSCULAR HGB 27.4 PG (27.0-31.0); MEAN CORPUSCULAR HGB CONC 32.3 G/DL (33.0-37.0); MEAN CORPUSCULAR VOLUME 84.7 FL (81.0-99.0); MEAN PLATELET VOLUME 8.8 FL (7.4-10.4); PLATELET COUNT 253 /CUMM (130-400); RBC DISTRIBUTION WIDTH 15.6 % (11.5-14.5); RED BLOOD CELL CT 4.08 /CUMM (4.20-5.40)
[2017-11-12 11:32] LABS: HEMATOCRIT 34.6 % (37-47)
[2017-11-12 13:47] VITALS: BP 143/77
[2017-11-12 23:13] VITALS: BP 120/80
--- NOTE | 2017-11-13 05:23 | PN- Housestaff ---
Rey BRUNNER,Clemencia 11/13/17 0522: Subjective Follow-up For: Chronic Pancreatitis Subjective: Patient seen and examined at bedside no overnight events. She says she is hungry and would like to advance her diet. Denies nausea/vomiting Review of Systems Constitutional: Reports: no symptoms, see HPI. Objective Last 24 Hrs of Vital Signs/I&O Vital Signs Date Time Temp Pulse Resp B/P B/P Pulse O2 O2 Flow FiO2 Mean Ox Delivery Rate 11/12 2313 98.8 78 19 120/80 98 Room Air 11/12 1347 99.6 84 18 143/77 100 11/12 0738 97.9 93 18 114/63 11/12 0737 97.9 93 18 114/63 Intake & Output 11/13 0800 11/13 0000 11/12 1600 Intake Total 500 875 Output Total Balance 500 875 Intake, IV 500 875 Physical Exam General Appearance: Alert, Oriented X3, Cooperative, No Acute Distress Cardiovascular: Regular Rate, Normal S1, Normal S2, No Murmurs Lungs: Normal Air Movement Abdomen: Soft, No Tenderness, No Hepatospenomegaly Neurological: Normal Speech, Strength at 5/5 X4 Ext, Normal Tone, Sensation Intact, Cranial Nerves 3-12 NL Extremities: No Edema Current Medications: Current Medications Sig/Anay Start time Last Medication Dose Route Stop Time Status Admin Amlodipine Besylate 10 MG DAILY 11/12 0900 AC 11/12 PO 0737 Clonazepam 1 MG Q12P PRN 11/11 1430 AC PO 11/18 1429 Duloxetine HCl 120 MG DAILY 11/12 0900 AC 11/12 PO 0736 Enoxaparin Sodium 40 MG DAILY 11/12 0900 AC 11/12 SC 0737 Ferrous Sulfate 325 MG DAILY 11/11 1547 AC 11/12 PO 0736 Gabapentin 100 MG QPM 11/12 2115 AC 11/12 PO 2322 Gabapentin 100 MG QPM 11/12 2100 CAN PO Hydromorphone HCl 0.6 MG Q6P PRN 11/11 1430 AC 11/12 IV 2047 Ketorolac 15 MG Q6P PRN 11/11 1430 AC Tromethamine IV Lactated Ringer's 1,000 ML Q13H 11/11 1430 AC 11/12 IV 11/14 1028 2220 Lipase/Protease/ 1 CAP TIDAC 11/11 1700 AC Amylase PO Metoclopramide HCl 10 MG 4 TIMES/DAY PRN 11/12 2030 CAN PO Metoprolol Succinate 100 MG DAILY 11/12 09 AC 11/12 PO 0738 Montelukast Sodium 10 MG DAILY 11/12 0900 AC 11/12 PO 0738 Pantoprazole Sodium 40 MG DAILY 11/11 1424 AC 11/12 IV 0738 Patient Medication 1 ED ONE ONE 11/12 1545 DC Teaching ED 11/12 1546 Polyethylene Glycol 17 GM AT BEDTIME 11/11 2100 AC PO Pregabalin 75 MG BID 11/12 09 DC PO Promethazine HCl 12.5 MG Q4P PRN 11/12 2030 AC 11/12 IV 11/19 202 203 Promethazine HCl 12.5 MG Q4P PRN 11/11 1430 DC 11/12 IV 11/18 1429 0741 Senna/Docusate Sodium 1 TAB AT BEDTIME 11/11 2100 AC 11/12 PO 2035 Trazodone HCl 25 MG QPM 11/11 2100 AC 11/12 PO 2035 Trimethobenzamide HCl 200 MG 4 TIMES/DAY 11/12 1700 DC 11/12 IM 1643 Last 24 Hrs of Lab/Dangelo Results Last 24 Hrs of Labs/Mics: Laboratory Tests 11/12/17 1005: Anion Gap 11, Estimated GFR > 60, BUN/Creatinine Ratio 30.0 H, Phosphorus 3.6, Total Bilirubin 0.8, Direct Bilirubin 0.2, AST 12 L, ALT 27, Alkaline Phosphatase 102, Total Protein 5.5 L, Albumin 2.7 L, CBC w Diff NO MAN DIFF REQ, RBC 4.08 L, MCV 84.7, MCH 27.4, MCHC 32.3 L, RDW 15.6 H, MPV 8.8, Gran % 76.2 H, Lymphocytes % 13.2 L, Monocytes % 8.2, Eosinophils % 2.1, Basophils % 0.3, Absolute Granulocytes 6.0, Absolute Lymphocytes 1.0 L, Absolute Monocytes 0.6, Absolute Eosinophils 0.2, Absolute Basophils 0 Assessment/Plan Assessment: Ms. 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 Assessment and plan Chronic pancreatitis with pseudocyst * Patient has been admitted in [facility] for chronic pancreatitis with pseudocyst management. Patient is on Ringer lactate at 125 mL per hour. Pain management with Dilaudid, Lyrica, gabapentin. Nausea managed by Phenergan. Patient feels hungry. We will advance her diet If the patient is not having nausea, vomiting , abdominal pain we will advance her diet today. Patient was evaluated for autoimmune pancreatitis in May 2017 which was negative. Patient was evaluated for autoimmune pancreatitis in May 2017 which was negative. * Hypertension-patient is on metoprolol and Norvasc. Spironolactone held. * Anxiety and depression-continue Klonopin. * Appreciate GI follow-up. Full code Diet-nothing by mouth DVT prophylaxis-Lovenox Problem List: 1. Pseudocyst of pancreas 2. Pancreatitis Pain Ratin Pain Location: NONE Pain Goal: Remain pain free Pain Plan: TYLENOL Tomorrow's Labs & Rationales: CBC,BEP [place] 11/13/17 1427: Attending MD Review Statement Attending Statement Attending MD Statement: examined this patient, discuss w/resident/PA/CHRISTIAN SCIENCE HEALER, agreed w/resident/PA/CHRISTIAN SCIENCE HEALER, reviewed EMR data (avail), discussed with nursing Attending Assessment/Plan: Recurrent pancreatitis secondary to pancreatic duct stricture and complicated with pseudocyst. Pt f/u with [facility] and has appointment scheduled for 11/30 at [facility] for a procedure to stent the stricture. conservative and supportive treatment for now. d/w pt the care plan. d/w GI dr Garcia the care plan.
[2017-11-13 06:52] VITALS: BP 114/68
[2017-11-13 14:58] VITALS: BP 136/84
[2017-11-13 22:24] VITALS: BP 138/84
[2017-11-14 06:41] VITALS: BP 120/76
--- NOTE | 2017-11-14 08:39 | PN- Housestaff ---
See Addendum Subjective Follow-up For: Chronic Pancreatitis Subjective: Patient reports mild diffused abdominal pain. She feels nauseated and vomited multiple times yesterday and was unable to tolerate liquids. She also reports watery brown stools x 5 times yesterday and once today. She denies lightheadedness, fever, chills or urinary symptoms Review of Systems Constitutional: Reports: see HPI. Objective Last 24 Hrs of Vital Signs/I&O Vital Signs Date Time Temp Pulse Resp B/P B/P Pulse O2 O2 Flow FiO2 Mean Ox Delivery Rate 11/14 0846 98 122/82 / 0846 89 122/82 / 0641 98.1 102 18 120/76 99 Room Air 11/13 2224 98.3 84 20 138/84 98 Room Air / 1458 98.6 92 20 136/84 98 Intake & Output 11/14 1600 11/14 0800 11/14 0000 Intake Total 1000 375 Output Total Balance 1000 375 Intake, IV 1000 375 Physical Exam General Appearance: Alert, Oriented X3, Cooperative Cardiovascular: Regular Rate, Normal S1, Normal S2 Lungs: Clear to Auscultation, Normal Air Movement Abdomen: Normal Bowel Sounds, Soft, No Tenderness Current Medications: Current Medications Sig/Anay Start time Last Medication Dose Route Stop Time Status Admin Alprazolam 0.5 MG ONCE ONE 11/13 2029 DC 11/13 PO 11/13 Amlodipine Besylate 10 MG DAILY 11/12 09 AC 11/14 PO 0846 Clonazepam 1 MG Q12P PRN 11/11 1430 AC PO 11/18 1429 Duloxetine HCl 120 MG DAILY 11/12 09 AC 11/14 PO 0837 Enoxaparin Sodium 40 MG DAILY 11/12 09 AC 11/14 SC 0838 Ferrous Sulfate 325 MG DAILY 11/11 1547 AC 11/14 PO 0838 Gabapentin 100 MG QPM 11/12 2115 AC 11/13 PO 203 Hydromorphone HCl 0.6 MG Q6P PRN 11/11 1430 AC 11/12 IV 2047 Ketorolac 15 MG Q6P PRN 11/11 1430 AC 11/14 Tromethamine IV 0323 Lactated Ringer's 1,000 ML Q13H 11/11 1430 DC 11/14 IV 11/14 1028 0323 Lipase/Protease/ 1 CAP TIDAC 11/11 1700 AC 11/13 Amylase PO 0837 Metoprolol Succinate 100 MG DAILY 11/12 0900 AC 11/14 PO 0846 Montelukast Sodium 10 MG DAILY 11/12 0900 AC 11/14 PO 0846 Ondansetron HCl 4 MG Q4 11/14 1400 AC 11/14 PO 1356 Pantoprazole Sodium 40 MG DAILY 11/11 1424 AC 11/14 IV 0846 Polyethylene Glycol 17 GM AT BEDTIME 11/11 2100 DC PO Promethazine HCl 12.5 MG Q6-PRN PRN 11/14 1215 AC IV 11/21 1207 Promethazine HCl 12.5 MG ONCE ONE 11/13 2030 DC 11/13 IV 11/13 2030 204 Promethazine HCl 12.5 MG ONCE ONE 11/13 1900 DC 11/13 IM 11/13 1901 1901 Promethazine HCl 12.5 MG Q4P PRN 11/12 2030 DC 11/14 IV 11/19 2028 1104 Senna/Docusate Sodium 1 TAB AT BEDTIME 11/11 2100 AC 11/12 PO 2035 Sodium Chloride 1,000 ML Q13H 11/14 1045 AC 11/14 IV 1103 Trazodone HCl 25 MG QPM 11/11 2100 AC 11/13 PO 2039 Last 24 Hrs of Lab/Dangelo Results Last 24 Hrs of Labs/Mics: Laboratory Tests 11/14/17 0716: Anion Gap 14, Estimated GFR > 60, BUN/Creatinine Ratio 14.0, CBC w Diff NO MAN DIFF REQ, RBC 4.03 L, MCV 83.7, MCH 27.6, MCHC 33.0, RDW 14.8 H, MPV 8.2, Gran % 74.8, Lymphocytes % 15.5 L, Monocytes % 7.4, Eosinophils % 1.9, Basophils % 0.4, Absolute Granulocytes 4.1, Absolute Lymphocytes 0.9 L, Absolute Monocytes 0.4, Absolute Eosinophils 0.1, Absolute Basophils 0 Assessment/Plan Assessment: Ms. 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 #Chronic pancreatitis with pseudocyst Plan: Will check C.difficile in the setting of PPI use Start Zofran 4mg q4 and Promethazine 12.5 mg q6 PRN Start Clear liquids as per GI Start NS IVF @ 75 cc/hr Continue Lipase/Protease, Duloxetine, Klonopin, amlodipine and metoprolol Pain: Dilaudid, Lyrica, gabapentin Problem List: 1. Chronic pancreatitis Pain Ratin Pain Location: Abd Pain Goal: Pain 4 or less Pain Plan: Dilaudid Tomorrow's Labs & Rationales: CBC
[2017-11-14 08:40] LABS: ABSOLUTE BASOPHIL COUNT 0 /CUMM (0.0-0.2); ABSOLUTE EOSINOPHIL COUNT 0.1 /CUMM (0.0-0.7); ABSOLUTE GRANULOCYTE CT 4.1 /CUMM (1.4-6.5); ABSOLUTE LYMPH COUNT 0.9 /CUMM (1.2-3.4); ABSOLUTE MONOCYTE COUNT 0.4 /CUMM (0.10-0.60); BASOPHIL % 0.4 % (0.0-2.0); EOSINOPHIL % 1.9 % (0-5); GRANULOCYTE % 74.8 % (42.2-75.2); HEMATOCRIT 33.7 % (37-47); MEAN CORPUSCULAR HGB 27.6 PG (27.0-31.0); MEAN CORPUSCULAR VOLUME 83.7 FL (81.0-99.0); MEAN PLATELET VOLUME 8.2 FL (7.4-10.4); PLATELET COUNT 274 /CUMM (130-400); RBC DISTRIBUTION WIDTH 14.8 % (11.5-14.5); RED BLOOD CELL CT 4.03 /CUMM (4.20-5.40); WHITE BLOOD CELL COUNT 5.5 /CUMM (4.8-10.8)
--- NOTE | 2017-11-14 10:27 | PN- Gastroenterology ---
Assessment/Plan GI Assessment/Recommendations: 1. Complicated pancreatitis. Pancreatic pseudocyst as well as pancreatic duct stricture. Her pseudocyst has an intrapancreatic component and would benefit from transpapillary drainage. Apparently, attempt was made last week, and a pancreatic duct stent inserted, but this did not completely traverse the stricture (per patient). She is scheduled for a repeat ERCP on 12/02. 2. Nausea, vomiting, abdominal pain. The pain has diminished, but nausea persists. There is also diarrhea. RECOMMENDATIONS: * Continue IV fluids * Clear liquid diet, advance as tolerated to full liquids with polymeric supplements * Ondansetron 4 mg ODT every 4 hours, not prn * Phenergan 12.5-25 mg IV every 6 hours prn breakthrough nausea * Hold MiraLAX given diarrhea * I Will discuss with Dr. Thomas at [place] tomorrow. Subjective Subjective: Pain has improved and is mild. The patient has persistent nausea, however, affecting her ability to eat. There is no fever, diaphoresis. No jaundice. She is having diarrhea. Objective Vital Signs and I&Os Vital Signs Date Time Temp Pulse Resp B/P B/P Pulse O2 O2 Flow FiO2 Mean Ox Delivery Rate 11/14 0846 98 122/82 11/14 0846 89 122/82 / 0641 98.1 102 18 120/76 99 Room Air / 2224 98.3 84 20 138/84 98 Room Air / 1458 98.6 92 20 136/84 98 Intake & Output 11/14 1600 11/14 0400 11/13 1600 11/13 0400 11/12 1600 11/12 0400 Intake Total 9629 500 1497 500 995 600 Output Total 3000 Balance 8085 423 3183 500 -2005 600 Intake, IV 7012 920 4811 500 995 600 Intake, Oral 320 0 Number 1 Bowel Movements Output, 3000 Emesis Patient 215 lb Weight Physical Exam: Alert and oriented. Sclera anicteric. Skin normal. Abdomen soft, nondistended , nontender. No edema. Current Medications: Current Medications Sig/Anay Start time Last Medication Dose Route Stop Time Status Admin Alprazolam 0.5 MG ONCE ONE 11/13 2029 DC 11/13 PO 11/13 Amlodipine Besylate 10 MG DAILY 11/12 0900 AC 11/14 PO 0846 Clonazepam 1 MG Q12P PRN 11/11 1430 AC PO 11/18 1429 Duloxetine HCl 120 MG DAILY 11/12 0900 AC 11/14 PO 0837 Enoxaparin Sodium 40 MG DAILY 11/12 0900 AC 11/14 SC 0838 Ferrous Sulfate 325 MG DAILY 11/11 1547 AC 11/14 PO 0838 Gabapentin 100 MG QPM 11/12 2115 AC 11/13 PO 203 Hydromorphone HCl 0.6 MG Q6P PRN 11/11 1430 AC 11/12 IV 2047 Ketorolac 15 MG Q6P PRN 11/11 1430 AC 11/14 Tromethamine IV 0323 Lactated Ringer's 1,000 ML Q13H 11/11 1430 AC 11/14 IV 11/14 1028 0323 Lipase/Protease/ 1 CAP TIDAC 11/11 1700 AC 11/13 Amylase PO 0837 Metoprolol Succinate 100 MG DAILY 11/12 0900 AC 11/14 PO 0846 Montelukast Sodium 10 MG DAILY 11/12 0900 AC 11/14 PO 0846 Ondansetron HCl 4 MG ONCE ONE 11/13 1230 DC PO 11/13 1231 Pantoprazole Sodium 40 MG DAILY 11/11 1424 AC 11/14 IV 0846 Polyethylene Glycol 17 GM AT BEDTIME 11/11 2100 AC PO Promethazine HCl 12.5 MG ONCE ONE 11/13 2030 DC 11/13 IV 11/13 Promethazine HCl 12.5 MG ONCE ONE 11/13 1900 DC 11/13 IM 11/13 190 1901 Promethazine HCl 12.5 MG Q4P PRN 11/12 2030 AC 11/14 IV 11/19 2028 0323 Senna/Docusate Sodium 1 TAB AT BEDTIME 11/11 2100 AC 11/12 PO 2034 Trazodone HCl 25 MG QPM 11/11 2100 AC 11/13 PO 2038 Results Pertinent Lab Results: Laboratory Tests 11/14 11/12 0716 1005 Chemistry Sodium (137 - 145 mmol/L) 138 139 Potassium (3.5 - 5.1 mmol/L) 3.7 4.1 Chloride (98 - 107 mmol/L) 104 104 Carbon Dioxide (22 - 30 mmol/L) 20 L 25 Anion Gap (5 - 16) 14 11 BUN (7 - 17 mg/dL) 7 15 Creatinine (0.5 - 1.0 mg/dL) 0.5 0.5 Estimated GFR (>60 ml/min) > 60 > 60 BUN/Creatinine Ratio (7 - 25 %) 14.0 30.0 H Phosphorus (2.5 - 4.5 mg/dL) 3.6 Total Bilirubin (0.2 - 1.3 mg/dL) 0.8 Direct Bilirubin (< 0.4 mg/dL) 0.2 AST (14 - 36 U/L) 12 L ALT (9 - 52 U/L) 27 Alkaline Phosphatase (<127 U/L) 102 Total Protein (6.3 - 8.2 g/dL) 5.5 L Albumin (3.5 - 5.0 g/dL) 2.7 L Hematology CBC w Diff NO MAN DIFF REQ NO MAN DIFF REQ WBC (4.8 - 10.8 /CUMM) 5.5 7.9 RBC (4.20 - 5.40 /CUMM) 4.03 L 4.08 L Hgb (12.0 - 16.0 G/DL) 11.1 L 11.2 L Hct (37 - 47 %) 33.7 L 34.6 L MCV (81.0 - 99.0 FL) 83.7 84.7 MCH (27.0 - 31.0 PG) 27.6 27.4 MCHC (33.0 - 37.0 G/DL) 33.0 32.3 L RDW (11.5 - 14.5 %) 14.8 H 15.6 H Plt Count (130 - 400 /CUMM) 274 253 MPV (7.4 - 10.4 FL) 8.2 8.8 Gran % (42.2 - 75.2 %) 74.8 76.2 H Lymphocytes % (20.5 - 51.1 %) 15.5 L 13.2 L Monocytes % (1.7 - 9.3 %) 7.4 8.2 Eosinophils % (0 - 5 %) 1.9 2.1 Basophils % (0.0 - 2.0 %) 0.4 0.3 Absolute Granulocytes (1.4 - 6.5 /CUMM) 4.1 6.0 Absolute Lymphocytes (1.2 - 3.4 /CUMM) 0.9 L 1.0 L Absolute Monocytes (0.10 - 0.60 /CUMM) 0.4 0.6 Absolute Eosinophils (0.0 - 0.7 /CUMM) 0.1 0.2 Absolute Basophils (0.0 - 0.2 /CUMM) 0 0 11/11 11/11 1158 1113 Chemistry Sodium (137 - 145 mmol/L) 143 Potassium (3.5 - 5.1 mmol/L) 4.0 Chloride (98 - 107 mmol/L) 105 Carbon Dioxide (22 - 30 mmol/L) 21 L Anion Gap (5 - 16) 18 H BUN (7 - 17 mg/dL) 9 Creatinine (0.5 - 1.0 mg/dL) 0.6 Estimated GFR (>60 ml/min) > 60 BUN/Creatinine Ratio (7 - 25 %) 15.0 Glucose (65 - 99 mg/dL) 136 H Calcium (8.4 - 10.2 mg/dL) 9.4 Total Bilirubin (0.2 - 1.3 mg/dL) 1.3 AST (14 - 36 U/L) 15 ALT (9 - 52 U/L) 31 Alkaline Phosphatase (<127 U/L) 150 H Total Protein (6.3 - 8.2 g/dL) 6.4 Albumin (3.5 - 5.0 g/dL) 3.3 L Globulin (1.9 - 4.2 gm/dL) 3.1 Albumin/Globulin Ratio (1.1 - 2.2 %) 1.1 Amylase (30 - 110 U/L) 148 H Lipase (23 - 300 U/L) 895 H Hematology CBC w Diff MAN DIFF ORDERED WBC (4.8 - 10.8 /CUMM) 13.0 H RBC (4.20 - 5.40 /CUMM) 5.14 Hgb (12.0 - 16.0 G/DL) 14.1 Hct (37 - 47 %) 42.3 MCV (81.0 - 99.0 FL) 82.4 MCH (27.0 - 31.0 PG) 27.5 MCHC (33.0 - 37.0 G/DL) 33.4 RDW (11.5 - 14.5 %) 15.3 H Plt Count (130 - 400 /CUMM) 294 MPV (7.4 - 10.4 FL) 8.3 Gran % (42.2 - 75.2 %) 90.5 H Lymphocytes % (20.5 - 51.1 %) 3.9 L Monocytes % (1.7 - 9.3 %) 4.9 Eosinophils % (0 - 5 %) 0.3 Basophils % (0.0 - 2.0 %) 0.4 Absolute Granulocytes (1.4 - 6.5 /CUMM) 11.8 H Segmented Neutrophils (42.2 - 75.2 %) 86 H Band Neutrophils (0.0 - 5.0 %) 7 H Absolute Lymphocytes (1.2 - 3.4 /CUMM) 0.5 L Lymphocytes (20.5 - 51.1 %) 4 L Monocytes (1.7 - 9.3 %) 3 Absolute Monocytes (0.10 - 0.60 /CUMM) 0.6 Absolute Eosinophils (0.0 - 0.7 /CUMM) 0 Absolute Basophils (0.0 - 0.2 /CUMM) 0 Platelet Estimate (ADEQUATE) ADEQUATE Normocytic RBCs VERIFIED Normochromic RBCs VERIFIED Urines Urine Color Cancelled Urine Clarity Cancelled Urine pH Cancelled Ur Specific [place] Cancelled Urine Protein Cancelled Urine Ketones Cancelled Urine Nitrite Cancelled Urine Bilirubin Cancelled Urine Urobilinogen Cancelled Ur Leukocyte Esterase Cancelled Ur Microscopic Cancelled Urine Hemoglobin Cancelled Urine Glucose Cancelled
[2017-11-14 14:34] VITALS: BP 159/98
[2017-11-14 22:34] VITALS: BP 118/75
[2017-11-15 06:39] VITALS: BP 118/72
--- NOTE | 2017-11-15 07:15 | PN- Housestaff ---
Rey BRUNNER,Clemencia 11/15/17 0715: Subjective Follow-up For: Pancreatitis Subjective: Patient seen and examined with attending no overnight events. Patient says she had 3 episodes of watery diarrhea. Over the weekend she had multiple bouts of vomiting and nausea. But now she feels that her vomiting has subsided. She is requesting a diet to be advanced to full liquid today. Review of Systems Constitutional: Reports: no symptoms, see HPI. Objective Last 24 Hrs of Vital Signs/I&O Vital Signs Date Time Temp Pulse Resp B/P B/P Pulse O2 O2 Flow FiO2 Mean Ox Delivery Rate 11/15 0806 82 123/67 / 0806 82 123/67 / 0639 98.7 82 18 118/72 99 Room Air 11/14 2234 97.8 82 20 118/75 97 Room Air 11/14 1434 98.2 94 20 159/98 97 11/14 0846 98 122/82 11/14 0846 89 122/82 Intake & Output 11/15 1600 11/15 0800 11/15 0000 Intake Total 1005 Output Total Balance 1005 Intake, IV 525 Intake, Oral 480 Number 1 Bowel Movements Physical Exam General Appearance: Alert, Oriented X3, Cooperative, No Acute Distress Cardiovascular: Regular Rate, Normal S1, Normal S2, No Murmurs Lungs: Normal Air Movement Abdomen: Soft, No Tenderness, No Hepatospenomegaly Neurological: Normal Speech, Strength at 5/5 X4 Ext, Normal Tone, Sensation Intact Extremities: No Edema Current Medications: Current Medications Sig/Anay Start time Last Medication Dose Route Stop Time Status Admin Amlodipine Besylate 10 MG DAILY 11/12 09 AC 11/15 PO 0806 Clonazepam 1 MG Q12P PRN 11/11 1430 AC PO 11/18 1429 Duloxetine HCl 120 MG DAILY 11/12 09 AC 11/15 PO 0805 Enoxaparin Sodium 40 MG DAILY 11/12 09 AC 11/15 SC 0809 Ferrous Sulfate 325 MG DAILY 11/11 1547 AC 11/14 PO 0838 Gabapentin 100 MG QPM 11/12 2115 AC 11/14 PO 2049 Hydromorphone HCl 0.6 MG Q6P PRN 11/11 1430 AC 11/12 IV 204 Ketorolac 15 MG .STK-MED ONE 11/15 1903 DC Tromethamine IM 11/14 1905 Ketorolac 15 MG Q6P PRN 11/11 1430 AC 11/15 Tromethamine IV 0117 Lactated Ringer's 1,000 ML Q13H 11/11 1430 DC 11/14 IV 11/14 1028 0323 Lipase/Protease/ 1 CAP TIDAC 11/11 1700 AC 11/15 Amylase PO 0805 Metoprolol Succinate 100 MG DAILY 11/12 0900 AC 11/15 PO 0806 Montelukast Sodium 10 MG DAILY 11/12 0900 AC 11/14 PO 0846 Ondansetron HCl 4 MG Q4 11/14 1400 AC 11/15 PO 0545 Pantoprazole Sodium 40 MG DAILY 11/11 1424 AC 11/15 IV 0809 Polyethylene Glycol 17 GM AT BEDTIME 11/11 2100 DC PO Promethazine HCl 12.5 MG Q6-PRN PRN 11/14 1215 AC 11/15 IV 11/21 1207 0115 Promethazine HCl 12.5 MG Q4P PRN 11/12 2030 DC 11/14 IV 11/19 2029 1104 Senna/Docusate Sodium 1 TAB AT BEDTIME 11/11 2100 DC 11/12 PO 2035 Sodium Chloride 1,000 ML Q13H 11/14 1045 AC 11/15 IV 0114 Trazodone HCl 25 MG QPM 11/11 2100 AC 11/14 PO 2049 Last 24 Hrs of Lab/Dangelo Results Last 24 Hrs of Labs/Mics: Microbiology 11/14 1600 STOOL: Clostridium difficile Toxin A & B - RECD Assessment/Plan Assessment: Ms. 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 Assessment and plan Chronic pancreatitis with pseudocyst * Patient has been admitted in [facility] for chronic pancreatitis with pseudocyst management. Patient is on Ringer lactate at 75 mL per hour. Pain management with Dilaudid, Lyrica, gabapentin. Nausea managed by Phenergan and Zofran. Patient feels hungry. We will advance her diet to full liquid. Patient was evaluated for autoimmune pancreatitis in May 2017 which was negative. * Hypertension-patient is on metoprolol and Norvasc. Spironolactone held. * Anxiety and depression-continue Klonopin. * Patient was seen by chocolate finisher operator yesterday for suggested to continue the current management and he would like to discuss with Dr. Thomas at [place]. * Patient had multiple bouts of diarrhea which was watery with no blood. C. difficile was sent. * Diet-full liquid diet * Code-full code Problem List: 1. Chronic pancreatitis Pain Ratin Pain Location: none Pain Goal: Remain pain free Pain Plan: tylenol Tomorrow's Labs & Rationales: cbc,bep Devin BRUNNER,Lisa 11/15/17 1119: Attending MD Review Statement Attending Statement Attending MD Statement: examined this patient, discuss w/resident/PA/INTERIOR BLOCK WIRER, agreed w/resident/PA/INTERIOR BLOCK WIRER, reviewed EMR data (avail), discussed with nursing, discussed with case mgmt, reviewed images, amended to note Attending Assessment/Plan: Patient seen and examined, doing overall better. Able to tolerate clear liquid and then was able to tolerate full liquids for this morning breakfast. Patient was seen by GI yesterday and now has Zofran scheduled. She wants to eat more. Will advance her diet to soft diet and if tolerates but then it will be advanced to low-fat solid diet. vss. on exam; aox3 nad cv; s1,s2 rrr resp; clear abd; soft, nt, bs+ ext: no edema Laboratory Tests 11/15 0903 Hematology CBC w Diff NO MAN DIFF REQ WBC (4.8 - 10.8 /CUMM) 6.3 RBC (4.20 - 5.40 /CUMM) 3.95 L Hgb (12.0 - 16.0 G/DL) 11.1 L Hct (37 - 47 %) 32.8 L MCV (81.0 - 99.0 FL) 83.0 MCH (27.0 - 31.0 PG) 28.0 MCHC (33.0 - 37.0 G/DL) 33.7 RDW (11.5 - 14.5 %) 14.3 Plt Count (130 - 400 /CUMM) 289 MPV (7.4 - 10.4 FL) 8.0 Gran % (42.2 - 75.2 %) 76.3 H Lymphocytes % (20.5 - 51.1 %) 13.7 L Monocytes % (1.7 - 9.3 %) 7.6 Eosinophils % (0 - 5 %) 1.8 Basophils % (0.0 - 2.0 %) 0.6 Absolute Granulocytes (1.4 - 6.5 /CUMM) 4.8 Absolute Lymphocytes (1.2 - 3.4 /CUMM) 0.9 L Absolute Monocytes (0.10 - 0.60 /CUMM) 0.5 Absolute Eosinophils (0.0 - 0.7 /CUMM) 0.1 Absolute Basophils (0.0 - 0.2 /CUMM) 0 A/P; 47 y/o F with pmh sig for HTN, HLD, anxiety, depression, panic attacks, a 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 Status post cystogastrostomy procedure in July 2017. Admitted to [facility] last month with acute pancreatitis. She then followed up with Dr. Thomas (GI at [facility]) and had ERCP as well as EUS performed. She said that she has a stent in one part of the pancreatic duct. She has developed a pseudocyst. Clinically she is doing better. We will advance her diet to soft and then low- fat solid diet if she continues to tolerate well. Patient has an appointment scheduled with Dr. Thomas in [place] for November 30. Patient to follow- up with him for the second part of the procedure. Continue all current meds. Patient on pancreatic enzymes. DVT px: Lovenox. If continues to improve and tolerates diet, will discharge home tomorrow.
--- NOTE | 2017-11-15 07:30 | PN- Student ---
Subjective Subjective: No acute events overnight. Patient seen and examined this morning. Patient had bouts of diarrhea and vomitng over the weeken that seem to be improving, but still having soft/loose bowel movements. At this point no vomiting, but the nausea still present. Patient want to advance the diet. Denied headache, chest pain, palpitation, abdominal pain, leg swelling. Objective Objective: Vital Signs Date Time Temp Pulse Resp B/P B/P Pulse O2 O2 Flow FiO2 Mean Ox Delivery Rate 11/15 0639 98.7 82 18 118/72 99 Room Air 11/14 2234 97.8 82 20 118/75 97 Room Air 11/14 1434 98.2 94 20 159/98 97 11/14 0846 98 122/82 11/14 0846 89 122/82 Intake & Output 11/15 0800 11/15 0000 11/14 1600 Intake Total 1005 805 Output Total Balance 1005 805 Intake, IV 525 775 Intake, Oral 480 30 Number 1 Bowel Movements Physical Examination: General= Patient resting in bed without discomfort, alert and oriented HEENT= normocephalic, atraumatic, anicteric slcera, moist oral mucosa, no exudate CVS= regular rate and rythm, normal S1 and S2 Lungs= symmetrical breath exapansion, clear breath sounds, no added sound Abdomen= presented bowel sounds, nontender, nondistended, no guarding or rebound tenderness Neuro= intact CN II-XII, normal speech Extremities= palpable pulses, no edema Results Results: Current Medications Sig/Anay Start time Last Medication Dose Route Stop Time Status Admin Acetaminophen 650 MG Q4P PRN 11/15 1130 UNVr PO Amlodipine Besylate 10 MG DAILY 11/12 899 AC 11/15 PO 0806 Clonazepam 1 MG Q12P PRN 11/11 1430 AC 11/15 PO 11/18 1429 0944 Duloxetine HCl 120 MG DAILY 11/12 09 AC 11/15 PO 0805 Enoxaparin Sodium 40 MG DAILY 11/12 09 AC 11/15 SC 0809 Ferrous Sulfate 325 MG DAILY 11/11 1547 AC 11/14 PO 0838 Gabapentin 100 MG QPM 11/12 2115 AC 11/14 PO 2049 Hydromorphone HCl 0.6 MG Q6P PRN 11/11 1430 DC 11/12 IV 204 Ketorolac 15 MG .ST-MED [facility] 11/15 0112 DC Tromethamine IM 11/15 0113 Ketorolac 15 MG .STK-MED ONE 11/14 1904 DC Tromethamine IM 11/14 1905 Ketorolac 15 MG Q6P PRN 11/11 1430 DC 11/15 Tromethamine IV 0117 Lipase/Protease/ 1 CAP TIDAC 11/11 1700 AC 11/15 Amylase PO 0805 Metoprolol Succinate 100 MG DAILY 11/12 0900 AC 11/15 PO 0806 Montelukast Sodium 10 MG DAILY 11/12 0900 AC 11/14 PO 0846 Omeprazole 40 MG DAILY AC 11/16 0700 AC PO Ondansetron HCl 4 MG Q4 11/14 1400 AC 11/15 PO 0944 Pantoprazole Sodium 40 MG DAILY 11/11 1424 DC 11/15 IV 0809 Polyethylene Glycol 17 GM AT BEDTIME 11/11 2100 DC PO Promethazine HCl 12.5 MG Q6-PRN PRN 11/14 1215 DC 11/15 IV 11/21 1207 0115 Promethazine HCl 12.5 MG Q4P PRN 11/12 2030 DC 11/14 IV 11/19 202 1104 Senna/Docusate Sodium 1 TAB AT BEDTIME 11/11 2100 DC 11/12 PO 2035 Sodium Chloride 1,000 ML Q13H 11/14 1045 DC 11/15 IV 0114 Trazodone HCl 25 MG QPM 11/11 2100 AC 11/14 PO 2049 Laboratory Tests 11/15/17 0903: CBC w Diff NO MAN DIFF REQ, RBC 3.95 L, MCV 83.0, MCH 28.0, MCHC 33.7, RDW 14.3 , MPV 8.0, Gran % 76.3 H, Lymphocytes % 13.7 L, Monocytes % 7.6, Eosinophils % 1.8, Basophils % 0.6, Absolute Granulocytes 4.8, Absolute Lymphocytes 0.9 L, Absolute Monocytes 0.5, Absolute Eosinophils 0.1, Absolute Basophils 0 Assessment/Plan Assessment: 47 y/o F with PMHx of gallstone pancreatitis complicated by pseudocyst s/p cystogastrostomy, recurrent pancreatitis attacks after initial resolution of the initial pseudocyst, 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 At the time of admision labs were significant for: WBC of 13.0 w/ 91% gram, glucose 136, ALK 150, Amylase 148, Lipase 895, normal AST and ALT. Based on history, PE and labs patient seem to have bout of acute on chronic pancreatitis in the setting of pancreatic pseudocyst. DDx include PUD and intestinal obstruction. PUD seem unlikely in the setting of elevated amylase and lipase and no hx of chronic NSAID used. Intestinal obstuction patient may have elevated amylase and lipase specially with hx of prior abd surgeries, at this time intestinal obstruction seems unlikely because hx of pancreatitis. Patient had a workup for autoimmune pancreatitis back in May 2017. Today WBC are 6.3. H&H stable in 11.1 and 32.8. No abx is require at this point, no sign of necrosis Over the weekend patient had diarrhea without leukocytosis or fever, but a C.diff analysis was send. Results still pending. No vomiting at this point, but nause still present. Medications will be change to by mouth. Plan: Chronic pancreatitis/pseudocyst: -Monitor vitals -Full liquid diet -Pain control: Tylenon 650 PRN, Gabapentin 100mg PO, Lipase 1 cap PO -Nausea: Zofran 4mg Q4 PO, Prilosec 40mg PO -Diarrhea: cont. to hold the stool softners, C.diff pending, Zenpep -Diarrhea: cont. to hold the stool softners, C.diff pending, Zenpep
--- NOTE | 2017-11-15 08:53 | Patient Discharge Instructions ---
Discharge Instructions General Discharge Information You were seen/treated for: Chronic Pancreatitis Watch for these problems: In case of abdominal pain, nausea, vomiting, chest pain please go to the nearest emergency room Special Instructions: Please follow-up with your primary care provider within 1-2 weeks of discharge and let them know about your recent admission at [facility]. You have an appointment scheduled with Dr. Thomas in [place] for November 30, Please follow up. We advised you to increase the dose of Creon and low-fat diet. You can try regular diet with low-fat, if you started getting pain in the abdomen, then switch to full liquid diet and talk to Dr Thomas. Diet Continue normal diet: No Recommended Diet: Low Fat Activity Full Activity/No Limits: No Activity Self Limited: Yes Acute Coronary Syndrome Inclusion Criteria At DC or during hospital stay patient has or had the following: ACS DIAGNOSIS No Discharge Core Measures Meds if any: Prescribed or Continued at Discharge Meds if any: NOT Prescribed or Continued at Discharge Congestive Heart Failure Inclusion Criteria At DC or during hospital stay patient has or had the following: CHF DIAGNOSIS No Discharge Core Measures Meds if any: Prescribed or Continued at Discharge Meds if any: NOT Prescribed or Continued at Discharge Cerebrovascular accident Inclusion Criteria At DC or during hospital stay patient has or had the following: CVA/TIA Diagnosis No Discharge Core Measures Meds if any: Prescribed or Continued at Discharge Meds if any: NOT Prescribed or Continued at Discharge Venous thromboembolism Inclusion Criteria VTE Diagnosis No VTE Type NONE VTE Confirmed by (Test) NONE Discharge Core Measures - Per Current guidelines, there needs to be overlap - treatment for the first 5 days of Warfarin therapy. - If discharged on Warfarin prior to 5 days of - overlap therapy, the patient will need to be - assessed for post discharge needs including - *Post discharge parental anticoagulation - *Warfarin and/or parental anticoagulation education - *Follow up date to check INR post discharge At least 5 days overlap therapy as Inpatient No Meds if any: Prescribed or Continued at Discharge Note: Overlap Therapy is Warfarin and Anticoagulant Meds if any: NOT Prescribed or Continued at Discharge
[2017-11-15 09:29] LABS: ABSOLUTE BASOPHIL COUNT 0 /CUMM (0.0-0.2); ABSOLUTE EOSINOPHIL COUNT 0.1 /CUMM (0.0-0.7); ABSOLUTE GRANULOCYTE CT 4.8 /CUMM (1.4-6.5); ABSOLUTE LYMPH COUNT 0.9 /CUMM (1.2-3.4); ABSOLUTE MONOCYTE COUNT 0.5 /CUMM (0.10-0.60); BASOPHIL % 0.6 % (0.0-2.0); EOSINOPHIL % 1.8 % (0-5); GRANULOCYTE % 76.3 % (42.2-75.2); HEMATOCRIT 32.8 % (37-47); MEAN CORPUSCULAR HGB CONC 33.7 G/DL (33.0-37.0); PLATELET COUNT 289 /CUMM (130-400); RBC DISTRIBUTION WIDTH 14.3 % (11.5-14.5); RED BLOOD CELL CT 3.95 /CUMM (4.20-5.40)
[2017-11-15 10:02] LABS: WHITE BLOOD CELL COUNT 6.3 /CUMM (4.8-10.8)
[2017-11-15 14:00] VITALS: BP 125/75
--- NOTE | 2017-11-15 19:23 | PN- Gastroenterology ---
Assessment/Plan GI Assessment/Recommendations: 1. Complicated pancreatitis. Pancreatic pseudocyst as well as pancreatic duct stricture. Her pseudocyst has an intrapancreatic component and would benefit from transpapillary drainage. An attempt was made last week, and a pancreatic duct stent inserted, but this did not completely traverse the stricture ( discussed with Dr. Thomas). She is scheduled for a repeat ERCP on 12/02. 2. Nausea, vomiting, abdominal pain. T RECOMMENDATIONS: * Reestablish IV line if possible * If pain persists into tomorrow morning, may need to regress diet to full liquid/polymeric supplements * Ondansetron 4 mg ODT every 4 hours * Phenergan 12.5-25 mg IV every 6 hours prn breakthrough nausea * Hold MiraLAX given diarrhea Subjective Subjective: Nausea markedly improved. Pain recurred somewhat, right upper quadrant, after progressing from full liquids to solid food. Objective Vital Signs and I&Os Vital Signs Date Time Temp Pulse Resp B/P B/P Pulse O2 O2 Flow FiO2 Mean Ox Delivery Rate 11/15 1400 98.3 87 16 125/75 99 Room Air / 0806 82 123/67 / 0806 82 123/67 / 0800 Room Air / 0639 98.7 82 18 118/72 99 Room Air 06/03 2234 97.8 82 20 118/75 97 Room Air Intake & Output 11/15 1600 /04 0400 / 1600 06/03 0400 / 1600 06/ 0400 Intake Total 1200 1005 9844 096 8367 500 Output Total Balance 1200 1005 5009 944 9839 500 Intake, IV 251 389 7372 375 1875 500 Intake, Oral 600 480 30 320 Number 1 1 Bowel Movements Patient 215 lb Weight Physical Exam: Tender upper abdomen Current Medications: Current Medications Sig/Anay Start time Last Medication Dose Route Stop Time Status Admin Acetaminophen 650 MG Q4P PRN 11/15 1130 AC 11/15 PO 1900 Amlodipine Besylate 10 MG DAILY 11/12 09 AC 11/15 PO 0806 Clonazepam 1 MG Q12P PRN 11/11 1430 AC 11/15 PO 11/18 1429 0944 Duloxetine HCl 120 MG DAILY 11/12 09 AC 11/15 PO 0805 Enoxaparin Sodium 40 MG DAILY 11/12 09 AC 11/15 SC 0809 Ferrous Sulfate 325 MG DAILY 11/11 1547 AC 11/15 PO 1151 Gabapentin 100 MG QPM 11/12 2115 AC 11/14 PO 2049 Hydromorphone HCl 0.6 MG Q6P PRN 11/11 1430 DC 11/12 IV 204 Ketorolac 15 MG .STK-MED ONE 11/15 0112 DC Tromethamine IM 11/15 0113 Ketorolac 15 MG Q6P PRN 11/11 1430 DC 11/15 Tromethamine IV 0117 Lipase/Protease/ 1 CAP TIDAC 11/11 1700 AC 11/15 Amylase PO 1723 Metoprolol Succinate 100 MG DAILY 11/12 0900 AC 11/15 PO 0806 Montelukast Sodium 10 MG DAILY 11/12 0900 AC 11/15 PO 1151 Omeprazole 40 MG DAILY AC 11/16 0700 AC PO Ondansetron HCl 4 MG Q4 11/14 1400 AC 11/15 PO 1723 Pantoprazole Sodium 40 MG DAILY 11/11 1424 DC 11/15 IV 0809 Promethazine HCl 12.5 MG Q6-PRN PRN 11/14 1215 DC 11/15 IV 11/21 1207 0115 Senna/Docusate Sodium 1 TAB AT BEDTIME 11/11 2100 DC 11/12 PO 2035 Sodium Chloride 1,000 ML Q13H 11/14 1045 DC 11/15 IV 0114 Trazodone HCl 25 MG QPM 11/11 2100 AC 11/14 PO 204 Results Pertinent Lab Results: Laboratory Tests 11/15 11/14 0903 0716 Chemistry Sodium (137 - 145 mmol/L) 138 Potassium (3.5 - 5.1 mmol/L) 3.7 Chloride (98 - 107 mmol/L) 104 Carbon Dioxide (22 - 30 mmol/L) 20 L Anion Gap (5 - 16) 14 BUN (7 - 17 mg/dL) 7 Creatinine (0.5 - 1.0 mg/dL) 0.5 Estimated GFR (>60 ml/min) > 60 BUN/Creatinine Ratio (7 - 25 %) 14.0 Hematology CBC w Diff NO MAN DIFF REQ NO MAN DIFF REQ WBC (4.8 - 10.8 /CUMM) 6.3 5.5 RBC (4.20 - 5.40 /CUMM) 3.95 L 4.03 L Hgb (12.0 - 16.0 G/DL) 11.1 L 11.1 L Hct (37 - 47 %) 32.8 L 33.7 L MCV (81.0 - 99.0 FL) 83.0 83.7 MCH (27.0 - 31.0 PG) 28.0 27.6 MCHC (33.0 - 37.0 G/DL) 33.7 33.0 RDW (11.5 - 14.5 %) 14.3 14.8 H Plt Count (130 - 400 /CUMM) 289 274 MPV (7.4 - 10.4 FL) 8.0 8.2 Gran % (42.2 - 75.2 %) 76.3 H 74.8 Lymphocytes % (20.5 - 51.1 %) 13.7 L 15.5 L Monocytes % (1.7 - 9.3 %) 7.6 7.4 Eosinophils % (0 - 5 %) 1.8 1.9 Basophils % (0.0 - 2.0 %) 0.6 0.4 Absolute Granulocytes (1.4 - 6.5 /CUMM) 4.8 4.1 Absolute Lymphocytes (1.2 - 3.4 /CUMM) 0.9 L 0.9 L Absolute Monocytes (0.10 - 0.60 /CUMM) 0.5 0.4 Absolute Eosinophils (0.0 - 0.7 /CUMM) 0.1 0.1 Absolute Basophils (0.0 - 0.2 /CUMM) 0 0
[2017-11-15 22:12] VITALS: BP 104/65
[2017-11-16 06:42] VITALS: BP 164/82
--- NOTE | 2017-11-16 07:16 | PN- Housestaff ---
Subjective Follow-up For: Pancreatitis Subjective: Patient states her nausea has resolved and her abdominal pain is much better but she continues to have greenish color diarrhea almost every 2 hours. HAs been tolerating the food well without any worsening abdominal pain. Review of Systems Constitutional: Reports: no symptoms. EENTM: Reports: no symptoms. Cardiovascular: Reports: no symptoms. Respiratory: Reports: no symptoms. Gastrointestinal: Reports: abdominal pain, diarrhea. Genitourinary: Reports: no symptoms. Musculoskeletal: Reports: no symptoms. Skin: Reports: no symptoms. Neurological/Psychological: Reports: no symptoms. Hematologic/Endocrine: Reports: no symptoms. Immunologic/Allergic: Reports: no symptoms. Objective Last 24 Hrs of Vital Signs/I&O Vital Signs Date Time Temp Pulse Resp B/P B/P Pulse O2 O2 Flow FiO2 Mean Ox Delivery Rate 06/ 0859 88 115/74 06/ 0859 88 115/74 06/05 0800 Room Air 06/ 0642 98.6 86 20 164/82 95 Room Air / 2212 99.2 87 18 104/65 98 Room Air 06/04 1400 98.3 87 16 125/75 99 Room Air Intake & Output 06/ 1600 06/05 0800 06/05 0000 Intake Total 360 480 Output Total Balance 360 480 Intake, Oral 360 480 Physical Exam General Appearance: Alert, Oriented X3, Cooperative Skin: No Rashes, No Breakdown Cardiovascular: Regular Rate, Normal S1, Normal S2 Lungs: Clear to Auscultation, Normal Air Movement Abdomen: Normal Bowel Sounds, Soft, Mild Tenderness in RUQ. Extremities: No Clubbing, No Cyanosis, No Edema Current Medications: Current Medications Sig/Anay Start time Last Medication Dose Route Stop Time Status Admin Acetaminophen 650 MG Q4P PRN 11/15 1130 DCD 11/15 PO 1900 Amlodipine Besylate 10 MG DAILY 11/12 09 DCD 11/16 PO 0859 Clonazepam 1 MG Q12P PRN 11/11 1430 DCD 11/16 PO 11/18 1429 0516 Duloxetine HCl 120 MG DAILY 11/12 09 DCD 06 PO 0859 Enoxaparin Sodium 40 MG DAILY 11/12 09 DCD 11/16 SC 0900 Ferrous Sulfate 325 MG DAILY 11/11 1547 DCD 11/16 PO 0859 Gabapentin 100 MG QPM 11/12 2114 DCD 11/15 PO 2012 Hydromorphone HCl 2 MG Q6P PRN 11/16 0845 DCD PO Ibuprofen 600 MG Q6P PRN 11/16 0845 DC PO Lipase/Protease/ 1 CAP TIDAC 11/11 1700 DCD 11/16 Amylase PO 0730 Metoprolol Succinate 100 MG DAILY 11/12 0900 DCD 11/16 PO 0859 Montelukast Sodium 10 MG DAILY 11/12 0900 DCD 11/16 PO 0859 Omeprazole 40 MG DAILY AC 11/16 0700 DCD 11/16 PO 0516 Ondansetron HCl 4 MG Q4 11/14 1400 DCD 11/16 PO 1113 Trazodone HCl 25 MG QPM 11/11 2100 DCD 11/15 PO 2011 Assessment/Plan Assessment: Ms. Kwok with history of gallstone pancreatitis several months ago, complicated by pseudocyst requiring cystogastrostomy, recurrent attacks following resolution of the initial pseudocyst with persistent symptoms found to have a pancreatic duct stricture thought to be accounting for her recurrent attacks, seen recently at [facility] for stent placement at the stricture site, with semi-successful placement and now here with another bout of abdominal pain, nausea and vomiting. Assessment and plan Chronic pancreatitis with pseudocyst * Patient is being admitted to [facility] for chronic pancreatitis with pseudocyst management. Pain management with Dilaudid, and gabapentin. Nausea managed with Phenergan as needed and schedueled Zofran. * Continue Regular low fat diet, patient advised to switch back to full liquids if abdominal pain worsens. * Also increase the dose of Pancreatic enzymes to 12,000 units after discussion with Dr. Garcia given persistent diarrhea. C.Diff negative. * Hypertension-patient is on metoprolol and Norvasc. Spironolactone held, will resume on discharge. * Anxiety and depression-continue Klonopin. DVT Prophylaxis; S/C lovenox and ALPS Patient is full code. Problem List: 1. Chronic pancreatitis 2. Pseudocyst of pancreas Pain Ratin Pain Location: Abdomen Pain Goal: Remain pain free Pain Plan: Pain Pathway Tomorrow's Labs & Rationales: None
[2017-11-16] MEDS ORDERED: GABAPENTIN100 M2 PO (08:33)
[2017-11-16 08:59] VITALS: BP 115/74
[2017-11-16] MEDS ORDERED: CREON DR 6,0001 EACH PO (10:41)
[2017-11-16] MEDS ORDERED: PROMETHAZINE12.5 M2 PO (11:22)
[2017-11-16] MEDS ORDERED: ONDANSETRON ODT4 M1 PO (11:47)
--- NOTE | 2017-11-16 12:40 | PN- Att Addend ---
Attending Addendum Attending Brief Note Patient seen and examined, overall doing better. Abdominal pain overall has improved. Patient was able to tolerate full liquids. Patient is otherwise medically stable for discharge today. She can advance her diet slowly to soft and then sounded regular low-fat diet if she is able to tolerate. Otherwise she can stay on full liquids. Patient to self manage diet at home and she was instructed how to do that. She will be discharged home on antibiotics and shortly has Dilaudid from before. She has an appointment with her a lot promotions intern in 2 weeks. She was advised to keep that appointment and get the second part of the procedure done. Patient will be discharged home today.
--- NOTE | 2017-11-16 13:04 | PN- Student ---
Subjective Subjective: No acute events overnight. Patient seen and examined this morning. Complains of diarrhea and mild abdominal pain. Denied headache, SOB, chest pain. Objective Objective: PE; General- no distress HEENT- NCAT, anicteric sclera, no exudate CVS- regular rate and rythm, normal S1 and S2 Lungs- clear bilateral [place]-mildly tender Extremities- no edema, palpable pulses Assessment/Plan Assessment: 47-year-old woman with PMHx of gallstone pancreatitis s/p ERCP and status post cholecystectomy, recently at [facility] for stent placement by Dr. Thomas for her pancreatic duct stricture and dilatation. After procedure patient was doing until 11/09/2018 she started experiencing abdominal pain to a point that she had to come to the ED. In the ED she was given pain medications, IV fluids and she was sent home. Later she started developing episodes of nausea, vomiting. She came to ED and was admitted to general medicine floor for persistent nausea and vomiting. CT scan of the abdomen 11/09/2017 showed stent placement and pancreatic pseudocyst and the proximal pancreatic body and another one in the pancreatic head. She denies any fevers or chills. She denies any diarrhea or constipation. Patient was admitted for chronic pancreatitis. Initially was NPO, with IV fluids and pain medication. Patient has an appointment with Dr. Thomas for ERCP/ possible pancreatic jejunostomy. Patient will confirm the date or of this month. Patient's anxiety and depression managed with Klonopin and blood pressure management with metoprolol and amlodipine. During the hospital admission her spirinoactone was held due to hypotension. Patient will be discharge today. Plan: F/U with GI and within 1-2 wks Regular low-fat diet
== END 2017-11-16 11:45 | DRG 439 ==
LOC: ERH 11:09 → ERHI 12:07 → 2NA 12:07 → ENRESERV 13:06 → ENTRNSPT 14:13 → EDTRNSPT 14:30 → EDTRNSPTSTS 14:30 → 2NA 14:34 → CMPTRNSPT 14:48 → 2NA 11-12 07:06 → ENPENDDIS 11-16 11:09 → 2NA 11-16 11:45
PROVIDERS: Emergency Medicine; Internal Medicine Hematology & Oncology; Student in an Organized Health Care Education/Training Program
DX: K86.1 Other chronic pancreatitis (principal); K86.3 Pseudocyst of pancreas; D68.9 Coagulation defect, unspecified; E66.9 Obesity, unspecified; Z68.38 Body mass index [BMI] 38.0-38.9, adult; F32.9 Major depressive disorder, single episode, unspecified; Z90.49 Acquired absence of other specified parts of digestive tract; Z88.2 Allergy status to sulfonamides; Z88.8 Allergy status to other drugs, medicaments and biological substances; I10 Essential (primary) hypertension; E78.5 Hyperlipidemia, unspecified; J45.909 Unspecified asthma, uncomplicated; G47.33 Obstructive sleep apnea (adult) (pediatric); F41.9 Anxiety disorder, unspecified; Z68.39 Body mass index [BMI] 39.0-39.9, adult
CPT/HCPCS: 2NASP; 36415; 82436; 93005; 93010; 96372; J1650; J2405; J2550; J3101; J3250; J7120; J7508